=== PATIENT | female | born 1995 | race Caucasian/White ===

== ENCOUNTER 2017-12-17 19:17 | Inpatient (IN) | payer BC, OTHER ==
[~2017-12-17] VITALS: Ht 160 cm; Wt 70.3 kg
[2017-12-17] MEDS ORDERED: MECLIZINE HCL 12.5 MG TABLET. PO ONE (20:00)
--- NOTE | 2017-12-17 20:00 | PHYS DOC ---
Past Medical History Past Medical History: Anxiety, Sinusitis, Other Additional Past Medical Histor: PANIC ATTACKS,HOSHIMOTTO'S Past Surgical History: No Surgical History Additional Information: VAPES Alcohol Use: None Drug Use: None Adult General Chief Complaint Chief Complaint: BLURRED/DOUBLE VISION HPI HPI Patient is a 22 year old female who presents with double vision Patient has had sinus drainage and congestion for the past 5 days, getting worse. She was diagnosed with sinusitis yesterday and placed on Amoxicillin and prednisone. Today at noon, she noted onset of diplopia which has been progressive and worse tonight. She wears contact lenses and noted no decreased visual acuity or photophobia. She also complains of mild vertigo. She has no pain on ocular movements. No fevers. Review of Systems Review of Systems Constitutional: Denies fever or chills Eyes: Denies change in visual acuity, redness, or eye pain HENT: With nasal congestion and right sided neck stiffness Respiratory: Denies cough or shortness of breath Cardiovascular: no chest pain or palpitations GI: Denies abdominal pain, nausea, vomiting, bloody stools or diarrhea : Denies dysuria or hematuria Musculoskeletal: Denies back pain or joint pain Integument: Denies rash or skin lesions Neurologic: Denies headache, with diplopia and neck muscle weakness or sensory changes Endocrine: Denies polyuria or polydipsia All other systems were reviewed and found to be within normal limits, except as documented in this note. Current Medications Current Medications Current Medications Medications (Trade) Dose Ordered Sig/Guido Start Time Stop Time Status Last Admin Dose Admin Ketorolac Tromethamine (Toradol 15mg Vial) 15 mg 1X ONCE 12/17/17 20:15 12/17/17 20:16 DC 12/17/17 20:36 15 MG Meclizine HCl (Antivert) 25 mg 1X ONCE 12/17/17 20:00 12/17/17 20:01 DC 12/17/17 20:00 25 MG Sodium Chloride 1,000 ml @ 1,000 mls/hr 1X ONCE 12/17/17 20:15 12/17/17 21:14 DC 12/17/17 20:35 1,000 MLS/HR Allergies Allergies Allergies Coded Allergies Type Severity Reaction Last Updated Verified No Known Drug Allergies 12/17/17 No Physical Exam Physical Exam Constitutional: Well developed, well nourished, no acute distress, non-toxic appearance. HENT: Normocephalic, atraumatic, bilateral external ears normal, oropharynx moist, no oral exudates, nose normal. with bilateral congestion, no facial or sinus tenderness to palpation. Eyes: PERRLA, EOMI, conjunctiva normal, no discharge. Neck: Normal range of motion, no tenderness, supple, no stridor. Cardiovascular:Fast rate and rhythm, no murmur Lungs & Thorax: Bilateral breath sounds clear to auscultation Abdomen: Bowel sounds normal, soft, no tenderness, no masses, no pulsatile masses. Skin: Warm, dry, no erythema, no rash. Back: No tenderness, no CVA tenderness. Extremities: No tenderness, no cyanosis, no clubbing, ROM intact, no edema. Neurologic: Alert and oriented X 3, normal motor function, normal sensory function, no focal deficits noted. Cranial nerves II-XII intact, no pronator drift bilaterally, fnmyuh-[id number]-[id number] intact bilaterally, strength 5/5 upper extremity the extremity symmetric bilaterally, sensation intact to light touch and position sense upper extremity production was symmetric bilaterally, gait normal. With diplopia after 2 feet distance. Psychologic: Affect normal, judgement normal, mood normal. Current Patient Data Vital Signs Vital Signs Date Time Temp Pulse Resp B/P (MAP) Pulse Ox O2 Delivery O2 Flow Rate FiO2 12/17/17 19:35 98.2 126 20 151/98 (115) 98 Room Air 98.2 Lab Values Laboratory Tests Test 12/17/17 20:20 12/17/17 20:22 12/17/17 20:28 Urine Opiates Screen Neg (NEG) Urine Methadone Screen Neg (NEG) Urine Barbiturates Neg (NEG) Urine Phencyclidine Screen Neg (NEG) Urine Amphetamine/Methamphetamine Neg (NEG) Urine Benzodiazepines Screen Neg (NEG) Urine Cocaine Screen Neg (NEG) Urine Cannabinoids Screen Pos (NEG) Urine Ethyl Alcohol Neg (NEG) POC Urine HCG, Qualitative Hcg negative (Negative) White Blood Count 10.5 x10^3/uL (4.0-11.0) Red Blood Count 5.39 x10^6/uL (3.50-5.40) Hemoglobin 16.0 g/dL (12.0-15.5) H Hematocrit 45.3 % (36.0-47.0) Mean Corpuscular Volume 84 fL (79-100) Mean Corpuscular Hemoglobin 30 pg (25-35) Mean Corpuscular Hemoglobin Concent 35 g/dL (31-37) Red Cell Distribution Width 12.4 % (11.5-14.5) Platelet Count 342 x10^3/uL (140-400) Neutrophils (%) (Auto) 86 % (31-73) H Lymphocytes (%) (Auto) 11 % (24-48) L Monocytes (%) (Auto) 3 % (0-9) Eosinophils (%) (Auto) 0 % (0-3) Basophils (%) (Auto) 0 % (0-3) Neutrophils # (Auto) 9.0 x10^3uL (1.8-7.7) H Lymphocytes # (Auto) 1.1 x10^3/uL (1.0-4.8) Monocytes # (Auto) 0.3 x10^3/uL (0.0-1.1) Eosinophils # (Auto) 0.0 x10^3/uL (0.0-0.7) Basophils # (Auto) 0.0 x10^3/uL (0.0-0.2) Segmented Neutrophils % 88 % (35-66) H Lymphocytes % 8 % (24-48) L Monocytes % 4 % (0-10) Platelet Estimate Adequate (ADEQUATE) Sodium Level 130 mmol/L (136-145) L Potassium Level 4.0 mmol/L (3.5-5.1) Chloride Level 97 mmol/L (98-107) L Carbon Dioxide Level 27 mmol/L (21-32) Anion Gap 6 (6-14) Blood Urea Nitrogen 17 mg/dL (7-20) Creatinine 0.8 mg/dL (0.6-1.0) Estimated GFR (Cockcroft-Gault) 88.9 BUN/Creatinine Ratio 21 (6-20) H Glucose Level 119 mg/dL (70-99) H Calcium Level 9.6 mg/dL (8.5-10.1) Total Bilirubin 0.5 mg/dL (0.2-1.0) Aspartate Amino Transferase (AST) 37 U/L (15-37) Alanine Aminotransferase (ALT) 81 U/L (14-59) H Alkaline Phosphatase 60 U/L (46-116) Total Protein 8.8 g/dL (6.4-8.2) H Albumin 3.9 g/dL (3.4-5.0) Albumin/Globulin Ratio 0.8 (1.0-1.7) L Thyroid Stimulating Hormone (TSH) 2.170 uIU/mL (0.358-3.74) Ethyl Alcohol Level < 10 mg/dL (0-10) Laboratory Tests 12/17/17 20:28 Laboratory Tests 12/17/17 20:28 EKG EKG ECG 20:05 ST @ [address]-T wave changes Radiology/Procedures Radiology/Procedures [facility] [address] [place] [address] IMAGING REPORT Signed PATIENT: ROSALINA DIAZ ACCOUNT: [id number] : 1995 LOCATION: ER AGE: 22 SEX: F EXAM STATUS: REG ER ORD. PHYSICIAN: HERIBERTO BENAVIDES MD REASON: diplopia PROCEDURE: CT HEAD WO CONTRAST Exam performed: CT scan of the head without contrast. Date of Service: 12/13/2017. Comparison: None available. Clinical History: Diplopia. Technique: Helical acquisitions are obtained from the foramen magnum to the vertex without intravenous administration of contrast. Findings: The ventricles are midline without evidence of dilatation. Normal camargo-white differentiation is maintained. There is no extra axial fluid collection, intraparenchymal hemorrhage or mass lesion. The visualized portions of the orbits, paranasal sinuses and the mastoid air cells appear clear. The calvarium is intact. Impression: 1. No acute intracranial process detected. PQRS Compliance Statement: One or more of the following individualized dose reduction techniques were utilized for this examination: 1. Automated exposure control 2. Adjustment of the mA and/or kV according to patient size 3. Use of iterative reconstruction technique Electronically signed by: Ana Luisa Castelan MD (12/17/2017 9:06 PM) [facility] DICTATED and SIGNED BY: ANA LUISA CASTELAN MD DATE: 12/17/172105 Course & Med Decision Making Course & Med Decision Making Pertinent Labs and Imaging studies reviewed. (See chart for details) Patient presents with diplopia and nasal congestion DDx-CVA, TIA, MS, Cavernous sinus thrombosis Patient was tachycardic with persistent diplopia and noted neck muscle weakness and RUE weakness on secondary exam. Labs remarkable for hyponatremia. Head CT scan unremarkable. ECG showed no evidence of acute injury pattern. UDS positive for cannabis. 20:[address] Urban who recommends Head CT scan, lab evaluation and if negative, outpatient MRI with ophthalmology evaluation. 23:30 Patient complains of neck swelling, right sided neck stiffness 00:21 Patient's medical record was reviewed and CT soft tissue neck from [facility] done on 12/14/2017 showed acute bilateral maxillary sinusitis otherwise negative. She had no swelling of her thyroid or airway. Epiglottis and aryepiglottic folds were unremarkable, vocal cords were normal. She was reassessed and now has complaints of neck weakness and right arm weakness. There is progression of her disease at this point. I have concerns for multiple sclerosis. Noting that she has persistent diplopia. Call Dr. Brown for further evaluation. 00:30 Patient request admission to [facility] 00:35 [facility] called and they have no bed availability 00:40 I spoke with the patient and she agreed to be admitted to [facility] 00:[address] Henderson who agreed with admission. Dragon Disclaimer Dragon Disclaimer This electronic medical record was generated, in whole or in part, using a voice recognition dictation system. Departure Departure Impression: Primary Impression: Diplopia Additional Impressions: RUE weakness Neck muscle weakness Sinusitis Marijuana abuse Disposition: ADMITTED INPATIENT Admitting Physician: Other (Dr. Corrie Henderson) Condition: STABLE Referrals: NO PCP (PCP) Problem Qualifiers Additional Impressions: Sinusitis Sinusitis location: maxillary Chronicity: subacute Qualified Codes: J01.00 - Acute maxillary sinusitis, unspecified HERIBERTO BENAVIDES MD Dec 17, 2017 20:00
--- NOTE | 2017-12-17 20:10 | EKG ---
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 RI6.01 No previous ECG available for comparison Electronically Signed On 12-18-2017 15:26:58 CDT by Steven Kellogg
[2017-12-17] MEDS ORDERED: IV NORMAL SALINE 1000ML BAG 1,000 ML IV ONE (20:15)
[2017-12-17] MEDS ORDERED: KETOROLAC 15 MG/ML VIAL. IV ONE (20:15)
[2017-12-17 20:39] LABS: BASO % 0 % (0-3); EOS % 0 % (0-3); HEMATOCRIT 45.3 % (36.0-47.0); LYMPH # 1.1 x10^3/uL (1.0-4.8); LYMPH % 11 % (24-48); MEAN CORPUSCULAR HEMOGLOBIN 30 pg (25-35); MEAN CORPUSCULAR HGB CONC 35 g/dL (31-37); MEAN CORPUSCULAR VOLUME 84 fL (79-100); MONO # 0.3 x10^3/uL (0.0-1.1); MONO % 3 % (0-9); NEUT % 86 % (31-73); PLATELET COUNT 342 x10^3/uL (140-400); RED BLOOD COUNT 5.39 x10^6/uL (3.50-5.40); RED CELL DISTRIBUTION WIDTH 12.4 % (11.5-14.5); WHITE BLOOD COUNT 10.5 x10^3/uL (4.0-11.0)
[2017-12-17 20:39] LABS: AMPHETAMINE/METHAMPHETAMINE NEG (NEG); BARBITURATES NEG (NEG); BENZODIAZEPINES NEG (NEG); CANNABINOIDS POS (NEG); COCAINE NEG (NEG); METHADONE NEG (NEG); OPIATES NEG (NEG); PHENCYCLIDINE NEG (NEG)
[2017-12-17 20:51] LABS: CALCIUM 9.6 mg/dL (8.5-10.1); CREATININE 0.8 mg/dL (0.6-1.0); GFR 88.9
[2017-12-17 20:56] LABS: ALBUMIN 3.9 g/dL (3.4-5.0); ALBUMIN/GLOBULIN RATIO 0.8 (1.0-1.7); TOTAL BILIRUBIN 0.5 mg/dL (0.2-1.0); TOTAL PROTEIN 8.8 g/dL (6.4-8.2)
[2017-12-17 21:09] LABS: % LYMPHS 8 % (24-48); % MONOS 4 % (0-10); % SEGS 88 % (35-66); PLT ESTIMATE ADEQUATE (ADEQUATE)
--- NOTE | 2017-12-17 21:10 | RAD ---
Exam performed: CT scan of the head without contrast. Date of Service: 12/13/2017. Comparison: None available. Clinical History: Diplopia. Technique: Helical acquisitions are obtained from the foramen magnum to the vertex without intravenous administration of contrast. Findings: The ventricles are midline without evidence of dilatation. Normal camargo-white differentiation is maintained. There is no extra axial fluid collection, intraparenchymal hemorrhage or mass lesion. The visualized portions of the orbits, paranasal sinuses and the mastoid air cells appear clear. The calvarium is intact. Impression: 1. No acute intracranial process detected. PQRS Compliance Statement: One or more of the following individualized dose reduction techniques were utilized for this examination: 1. Automated exposure control 2. Adjustment of the mA and/or kV according to patient size 3. Use of iterative reconstruction technique Electronically signed by: Ana Luisa Castelan MD (12/17/2017 9:06 PM) [facility]
[2017-12-18] MEDS ORDERED: diphenhydrAMINE HCL 25 MG CAPSULE PO ONE (02:15)
[2017-12-18 03:15] VITALS: BP 123/87
[2017-12-18] MEDS ORDERED: HYDR15SO4 PO (03:41)
[2017-12-18] MEDS ORDERED: AMOX875T PO (03:41)
[2017-12-18] MEDS ORDERED: zoloft (03:41)
[2017-12-18] MEDS ORDERED: PRED50TA PO (03:41)
[2017-12-18] MEDS ORDERED: ativan (03:41)
[2017-12-18] MEDS ORDERED: FLUT16SP NS (03:41)
[2017-12-18] MEDS ORDERED: [UNRECOGNIZED DRUG - OTHER] (03:41)
[2017-12-18] MEDS ORDERED: PROAIR HFA8.5 GM INH (03:41)
[2017-12-18] MEDS ORDERED: LEVO25TA4 PO (03:41)
[2017-12-18 07:00] VITALS: BP 129/86
[2017-12-18] MEDS ORDERED: ALPRAZolam 0.25 MG TABLET PO PRN (09:00)
[2017-12-18] MEDS ORDERED: NON FORMULARY ITEM (Albuterol Sulfate (Proair Hfa Inhaler) 1 PUFF) INH PRN (09:00)
[2017-12-18] MEDS ORDERED: NON FORMULARY ITEM IV ONE (09:00)
[2017-12-18] MEDS ORDERED: ZOLPIDEM 5 MG TABLET. PO PRN (09:00)
[2017-12-18] MEDS ORDERED: ONDANSETRON ODT 4 MG TAB.RAPDIS. PO PRN (09:00)
[2017-12-18] MEDS ORDERED: HYDROcodon/APAP 7.5/325MG ORAL 15 ML SOLUTION PO PRN (09:00)
[2017-12-18] MEDS ORDERED: ACETAMINOPHEN 500 MG TABLET PO PRN (09:00)
[2017-12-18] MEDS: FLUTICASONE 50MCG/NASAL SPRAY 16GM BOTTLE. NS SCH (09:00)
[2017-12-18] MEDS ORDERED: IBUPROFEN 200 MG TABLET. PO PRN (09:00)
[2017-12-18] MEDS ORDERED: ACETAMINOPHEN/CODEINE 300/30MG TABLET. PO PRN (09:00)
[2017-12-18] MEDS: AMOXICILLIN 250 MG CAPSULE. PO SCH ×2 (09:32→21:02)
[2017-12-18] MEDS: POTASSIUM CL 20MEQ D5-0.45NACL 1,000 ML IV SCH (09:45)
[2017-12-18] MEDS ORDERED: CETIRIZINE HCL 10 MG TABLET. PO SCH (10:00)
[2017-12-18] MEDS ORDERED: predniSONE 10 MG TABLET PO SCH (10:00)
[2017-12-18] MEDS ORDERED: IOHEXOL 300 MG/ML 100ML VIAL. IV ONE (10:15)
[2017-12-18] MEDS ORDERED: CONTRAST GIVEN. MC PRN (10:15)
[2017-12-18] MEDS ORDERED: LEVOTHYROXINE 25 MCG TABLET. PO SCH (10:30)
[2017-12-18 11:00] VITALS: BP 137/86
--- NOTE | 2017-12-18 11:48 | PDOC2 ---
NEUROLOGY CONSULT Date of Admission Date of Admission DATE: 12/18/17 TIME: 11:37 Reason for Consult Reason for Consult: Diplopia, weakness Referring Physician Referring Physician: Dr. Henderson Source Source: Caregiver (Mother), Chart review, Patient History of Present Illness History of Present Illness The patient is a 22-year-old right-handed female who has been feeling poorly for the past week. She notices weakness of her neck muscles in her head drops. She has had some right arm weakness. She is had some sinusitis, congestion, secretions, and her voice has changed. She went to the [facility] emergency department 3 days ago and had a negative CT of the neck. She has been on antibiotics for sinusitis. When I discussed the case with Dr. Ortega last night he described the donato yet at a distance and a negative exam, but later the patient brought up complaints of the neck weakness and right arm weakness and was admitted. There is no history of neuromuscular disease in the family. 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 She denies any numbness, cognitive change, exposure to hazardous chemicals. Past Medical History Endocrine: Hypothyroidism (Eze's) Past Surgical History Past Surgical History: No pertinent history Family History Family History: No pertinent hx ( negative for neuromuscular disease, parents are in good health) Social History Social History No alcohol, tobacco, drugs, Single Current Medications Current Medications Current Medications Meclizine HCl (Antivert) 25 mg 1X ONCE PO Last administered on 12/17/17at 20:00 ; Start 12/17/17 at 20:00; Stop 12/17/17 at 20:01; Status DC Sodium Chloride 1,000 ml @ 1,000 mls/hr 1X ONCE IV Last administered on at 20:35; Start 12/17/17 at 20:15; Stop 12/17/17 at 21:14; Status DC Ketorolac Tromethamine (Toradol 15mg Vial) 15 mg 1X ONCE IV Last administered on 12/17/17at 20:36; Start 12/17/17 at 20:15; Stop 12/17/17 at 20:16; Status DC Diphenhydramine HCl (Benadryl) 25 mg 1X ONCE PO Last administered on at 02:16; Start 12/18/17 at 02:15; Stop 12/18/17 at 02:18; Status DC Acetaminophen (Tylenol) 500 mg PRN Q6HRS PRN PO MILD PAIN / TEMP; Start at 09:00 Acetaminophen/ Codeine Phosphate (Tylenol #3) 1 tab PRN Q6HRS PRN PO PAIN; Start 12/18/17 at 09:00 Ibuprofen (Motrin) 600 mg PRN Q6HRS PRN PO INFLAMMATION; Start 12/18/17 at 09: 00 Ondansetron HCl (Zofran) 4 mg PRN Q6HRS PRN IV NAUSEA/VOMITING; Start 12/18/17 at 09:00 Ondansetron HCl (Zofran Odt) 4 mg PRN Q6HRS PRN PO NAUSEA/VOMITING; Start 12/18 at 09:00 Fluticasone Propionate (Flonase) 1 spray DAILY NS ; Start 12/18/17 at 09:00 Acetaminophen/ Hydrocodone Bitart (Lortab 7.5-325/ 15ml Oral Solution) 15 ml PRN Q4HRS PRN PO MODERATE PAIN; Start 12/18/17 at 09:00 Non-Formulary Medication (Albuterol Sulfate (Proair Hfa Inhaler)) 1 puff PRN Q6HRS PRN INH SHORTNESS OF BREATH; Start 12/18/17 at 09:00; Status UNV Amoxicillin (Amoxil) 750 mg BID PO ; Start 12/18/17 at 10:00 Levothyroxine Sodium (Synthroid) 25 mcg DAILY07 PO ; Start 12/18/17 at 10:30 Prednisone (Prednisone) 50 mg DAILY PO ; Start 12/18/17 at 10:00 Alprazolam (Xanax) 0.25 mg PRN Q8HRS PRN PO ANXIETY / AGITATION; Start at 09:00 Zolpidem Tartrate (Ambien) 5 mg PRN QHS PRN PO INSOMNIA; Start 12/18/17 at 09: 00 Cetirizine HCl (ZyrTEC) 10 mg DAILY PO ; Start 12/18/17 at 10:00 Non-Formulary Medication 1 ea 1X ONCE IV ; Start 12/18/17 at 09:00; Stop at 09:01; Status UNV Potassium Chloride/Dextrose/ Sod Cl 1,000 ml @ 80 mls/hr [id number] IV Last administered on 12/18/17at 09:45; Start 12/18/17 at 09:00 Albuterol Sulfate (Ventolin Neb Soln) 2.5 mg PRN Q6HRS PRN NEB SHORTNESS OF BREATH; Start 12/18/17 at 09:30 Iohexol (Omnipaque 300 Mg/ml) 75 ml 1X ONCE IV Last administered on 12/18/17at 10:31; Start 12/18/17 at 10:15; Stop 12/18/17 at 10:16; Status DC Info (CONTRAST GIVEN -- Rx MONITORING) 1 each PRN DAILY PRN MC SEE COMMENTS; Start 12/18/17 at 10:15; Stop 12/20/17 at 10:14 Active Scripts Active Reported Amoxicillin 875 Mg Tablet 1 Tab PO BID Levothyroxine Sodium 25 Mcg Tablet 1 Tab PO DAILY Proair Hfa Inhaler (Albuterol Sulfate) 8.5 Gm Hfa.aer.ad 1 Puff INH PRN Q6HRS PRN [kaitlib fe] Hydrocodone-Apap 7.5-325/15 Soln (Hydrocodone Bit/Acetaminophen) 15 Ml Solution 15 Ml PO PRN Q4HRS PRN Prednisone 50 Mg Tablet 1 Tab PO DAILY Fluticasone Propionate Nasal Hulen (Fluticasone Propionate) 16 Gm Hulen.susp 1 Hulen NS DAILY [zoloft] [ativan] Allergies Allergies: Coded Allergies: No Known Drug Allergies (Unverified , 12/17/17) ROS Review of System Negative for fevers, chills, weight loss, shortness of breath, chest pain, indigestion, hematochezia, melena, dysuria. Full 14-point review systems is negative. Physical Exam Physical Examination General: Well-developed, well-nourished, white female, in no acute distress HEENT: Normocephalic andatraumatic. Tympanic membranes clear.Temporal arteries pulsatile and nontender.Fundoscopic exam unremarkable Neck: Supple without bruit, no meningismus Musculoskeletal: Stability:see neurologic. Gait exam:see neurologic. Tone:see neurologic. Strength:see neurologic. Neurological: Mental Status:intact, orientation, memory, attention span/concentration, language, fund of knowledge normal. Cranial Nerves:Pupils equal and reactive to light, extraocular movements areintact, visual figueroa are full to confrontation. Although she complains of diplopia at a distance, horizontal, I cannot discern a cranial neuropathy on cover-uncover testing. Facial sensation is normal. There is no facial asymmetry. Vestibulo-ocular reflex is intact. Palate elvates and tongue protrudes in midline. Voice is hyper nasal. There is weakness of neck extension. All other cranial related problems are negative except as mentioned before.Reflexes:2+ and symmetric with flexor plantar responses. Motor:3/5 strength in right arm, otherwise 5/5, with normal tone and bulk. Coordination:Finger-nose finger and mxon-lw-tenj testing are normal. Rapid alternating movements and fine finger movements are intact. Gait:Normal, including tandem. Sensory:Normal pinprick, vibration, light touch, proprioception. Vitals VITALS Vital Signs Date Time Temp Pulse Resp B/P (MAP) Pulse Ox O2 Delivery O2 Flow Rate FiO2 12/18/17 07:41 Room Air 12/18/17 07:00 97.9 100 16 129/86 (100) 95 97.9 Labs Labs Laboratory Tests Test 12/17/17 20:20 12/17/17 20:22 12/17/17 20:28 12/18/17 10:15 Urine Opiates Screen Neg (NEG) Urine Methadone Screen Neg (NEG) Urine Barbiturates Neg (NEG) Urine Phencyclidine Screen Neg (NEG) Urine Amphetamine/Methamphetamine Neg (NEG) Urine Benzodiazepines Screen Neg (NEG) Urine Cocaine Screen Neg (NEG) Urine Cannabinoids Screen Pos (NEG) Urine Ethyl Alcohol Neg (NEG) Bedside Urine HCG, Qualitative Hcg negative (Negative) White Blood Count 10.5 x10^3/uL (4.0-11.0) Red Blood Count 5.39 x10^6/uL (3.50-5.40) Hemoglobin 16.0 g/dL (12.0-15.5) Hematocrit 45.3 % (36.0-47.0) Mean Corpuscular Volume 84 fL (79-100) Mean Corpuscular Hemoglobin 30 pg (25-35) Mean Corpuscular Hemoglobin Concent 35 g/dL (31-37) Red Cell Distribution Width 12.4 % (11.5-14.5) Platelet Count 342 x10^3/uL (140-400) Neutrophils (%) (Auto) 86 % (31-73) Lymphocytes (%) (Auto) 11 % (24-48) Monocytes (%) (Auto) 3 % (0-9) Eosinophils (%) (Auto) 0 % (0-3) Basophils (%) (Auto) 0 % (0-3) Neutrophils # (Auto) 9.0 x10^3uL (1.8-7.7) Lymphocytes # (Auto) 1.1 x10^3/uL (1.0-4.8) Monocytes # (Auto) 0.3 x10^3/uL (0.0-1.1) Eosinophils # (Auto) 0.0 x10^3/uL (0.0-0.7) Basophils # (Auto) 0.0 x10^3/uL (0.0-0.2) Segmented Neutrophils % 88 % (35-66) Lymphocytes % 8 % (24-48) Monocytes % 4 % (0-10) Platelet Estimate Adequate (ADEQUATE) Sodium Level 130 mmol/L (136-145) Potassium Level 4.0 mmol/L (3.5-5.1) Chloride Level 97 mmol/L (98-107) Carbon Dioxide Level 27 mmol/L (21-32) Anion Gap 6 (6-14) Blood Urea Nitrogen 17 mg/dL (7-20) Creatinine 0.8 mg/dL (0.6-1.0) Estimated GFR (Cockcroft-Gault) 88.9 BUN/Creatinine Ratio 21 (6-20) Glucose Level 119 mg/dL (70-99) Calcium Level 9.6 mg/dL (8.5-10.1) Total Bilirubin 0.5 mg/dL (0.2-1.0) Aspartate Amino Transf (AST/SGOT) 37 U/L (15-37) Alanine Aminotransferase (ALT/SGPT) 81 U/L (14-59) Alkaline Phosphatase 60 U/L (46-116) Total Protein 8.8 g/dL (6.4-8.2) Albumin 3.9 g/dL (3.4-5.0) Albumin/Globulin Ratio 0.8 (1.0-1.7) Thyroid Stimulating Hormone (TSH) 2.170 uIU/mL (0.358-3.74) Ethyl Alcohol Level < 10 mg/dL (0-10) Magnesium Level 2.4 mg/dL (1.8-2.4) Laboratory Tests Test 12/17/17 20:20 12/17/17 20:22 12/17/17 20:28 12/18/17 10:15 Urine Opiates Screen Neg (NEG) Urine Methadone Screen Neg (NEG) Urine Barbiturates Neg (NEG) Urine Phencyclidine Screen Neg (NEG) Urine Amphetamine/Methamphetamine Neg (NEG) Urine Benzodiazepines Screen Neg (NEG) Urine Cocaine Screen Neg (NEG) Urine Cannabinoids Screen Pos (NEG) Urine Ethyl Alcohol Neg (NEG) Bedside Urine HCG, Qualitative Hcg negative (Negative) White Blood Count 10.5 x10^3/uL (4.0-11.0) Red Blood Count 5.39 x10^6/uL (3.50-5.40) Hemoglobin 16.0 g/dL (12.0-15.5) Hematocrit 45.3 % (36.0-47.0) Mean Corpuscular Volume 84 fL (79-100) Mean Corpuscular Hemoglobin 30 pg (25-35) Mean Corpuscular Hemoglobin Concent 35 g/dL (31-37) Red Cell Distribution Width 12.4 % (11.5-14.5) Platelet Count 342 x10^3/uL (140-400) Neutrophils (%) (Auto) 86 % (31-73) Lymphocytes (%) (Auto) 11 % (24-48) Monocytes (%) (Auto) 3 % (0-9) Eosinophils (%) (Auto) 0 % (0-3) Basophils (%) (Auto) 0 % (0-3) Neutrophils # (Auto) 9.0 x10^3uL (1.8-7.7) Lymphocytes # (Auto) 1.1 x10^3/uL (1.0-4.8) Monocytes # (Auto) 0.3 x10^3/uL (0.0-1.1) Eosinophils # (Auto) 0.0 x10^3/uL (0.0-0.7) Basophils # (Auto) 0.0 x10^3/uL (0.0-0.2) Segmented Neutrophils % 88 % (35-66) Lymphocytes % 8 % (24-48) Monocytes % 4 % (0-10) Platelet Estimate Adequate (ADEQUATE) Sodium Level 130 mmol/L (136-145) Potassium Level 4.0 mmol/L (3.5-5.1) Chloride Level 97 mmol/L (98-107) Carbon Dioxide Level 27 mmol/L (21-32) Anion Gap 6 (6-14) Blood Urea Nitrogen 17 mg/dL (7-20) Creatinine 0.8 mg/dL (0.6-1.0) Estimated GFR (Cockcroft-Gault) 88.9 BUN/Creatinine Ratio 21 (6-20) Glucose Level 119 mg/dL (70-99) Calcium Level 9.6 mg/dL (8.5-10.1) Total Bilirubin 0.5 mg/dL (0.2-1.0) Aspartate Amino Transf (AST/SGOT) 37 U/L (15-37) Alanine Aminotransferase (ALT/SGPT) 81 U/L (14-59) Alkaline Phosphatase 60 U/L (46-116) Total Protein 8.8 g/dL (6.4-8.2) Albumin 3.9 g/dL (3.4-5.0) Albumin/Globulin Ratio 0.8 (1.0-1.7) Thyroid Stimulating Hormone (TSH) 2.170 uIU/mL (0.358-3.74) Ethyl Alcohol Level < 10 mg/dL (0-10) Magnesium Level 2.4 mg/dL (1.8-2.4) Images Images CT head: The ventricles are midline without evidence of dilatation. Normal camargo-white differentiation is maintained. There is no extra axial fluid collection, intraparenchymal hemorrhage or mass lesion. The visualized portions of the orbits, paranasal sinuses and the mastoid air cells appear clear. The calvarium is intact. Impression: 1. No acute intracranial process detected. Assessment/Plan Assessment/Plan Impression: Onset of right upper extremity weakness, dysphagia, hyper nasal voice, and now some diplopia. There is no evidence of central nervous system disease. The normal deep tendon reflexes reflexes argue against acute neuropathy. The neck extension weakness is unlikely to be due to central or peripheral nervous disease. Thus, I'm most concerned about myasthenia gravis especially since we know she already has autoimmune problems with her thyroiditis. It would be unusual for Lambert Eaton syndrome to present in this age group there is no family history of neuromuscular disease. I doubt that she has botulism or other poisoning. Recommendations: I originally planned an edrophonium challenge test, but this medication is not available. With permission from chief executive officer, I am sending off myasthenia serology. CT of the chest to rule out thymoma Speech therapy to evaluate swallowing Respiratory therapy to monitor negative inspiratory force Pulmonary consultation, I discussed with Dr. Strickland Most likely I will be starting the patient on plasmapheresis within the next 24 hours I will also start steroids and pyridostigmine Transfer to ICU if status worsens. I fully discussed with the patient and her mother. Thank you for letting me help with the patient's care. GAURAV BARONE MD Dec 18, 2017 11:48
--- NOTE | 2017-12-18 12:06 | PDOC1 ---
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 Now she is complaining of right upper extremity weakness to me, no tingling numbness on feet or extremities. DTRs plus 2. She has been also having stiff neck for 2 weeks, actually saw [facility] ER, sent home, CAT scan was done there which sounds unremarkable. But she is still very stiff in her neck. Neurology has been consulted. Concerns about myasthenia gravis. Thoughts of edrophonium test. Plasmapheresis also contemplated. Patient has significant chunky sounding cough and unable to expectorate or at least she also has some difficulty swallowing.DW STRAW BALER, signifn swallow issues hence advice NPO<> Pulmonary consulted and I agree with this. We will get records from [facility] - had a chest and neck CT? Mother is concerned about secretions. We have to closely monitor respiratory status, agree with nothing by mouth and IV fluids for now. If status worsens worsens ,. I agree with transfer to ICU. Past Medical History Endocrine: Hypothyroidism (Eze's) Past Surgical History Past Surgical History: No pertinent history Family History Family History: Other (MS in the sister) Social History Smoke: No ALCOHOL: none Drugs: None Current Problem List Problem List Problems Medical Problems: (1) Diplopia Status: Acute (2) Neck muscle weakness Status: Acute (3) RUE weakness Status: Acute (4) Sinusitis Status: Acute Current Medications Current Medications Current Medications Meclizine HCl (Antivert) 25 mg 1X ONCE PO Last administered on 12/17/17at 20:00 ; Start 12/17/17 at 20:00; Stop 12/17/17 at 20:01; Status DC Sodium Chloride 1,000 ml @ 1,000 mls/hr 1X ONCE IV Last administered on at 20:35; Start 12/17/17 at 20:15; Stop 12/17/17 at 21:14; Status DC Ketorolac Tromethamine (Toradol 15mg Vial) 15 mg 1X ONCE IV Last administered on 12/17/17at 20:36; Start 12/17/17 at 20:15; Stop 12/17/17 at 20:16; Status DC Diphenhydramine HCl (Benadryl) 25 mg 1X ONCE PO Last administered on at 02:16; Start 12/18/17 at 02:15; Stop 12/18/17 at 02:18; Status DC Acetaminophen (Tylenol) 500 mg PRN Q6HRS PRN PO MILD PAIN / TEMP; Start at 09:00 Acetaminophen/ Codeine Phosphate (Tylenol #3) 1 tab PRN Q6HRS PRN PO PAIN; Start 12/18/17 at 09:00 Ibuprofen (Motrin) 600 mg PRN Q6HRS PRN PO INFLAMMATION; Start 12/18/17 at 09: 00 Ondansetron HCl (Zofran) 4 mg PRN Q6HRS PRN IV NAUSEA/VOMITING; Start 12/18/17 at 09:00 Ondansetron HCl (Zofran Odt) 4 mg PRN Q6HRS PRN PO NAUSEA/VOMITING; Start 12/18 at 09:00 Fluticasone Propionate (Flonase) 1 spray DAILY NS ; Start 12/18/17 at 09:00 Acetaminophen/ Hydrocodone Bitart (Lortab 7.5-325/ 15ml Oral Solution) 15 ml PRN Q4HRS PRN PO MODERATE PAIN; Start 12/18/17 at 09:00 Non-Formulary Medication (Albuterol Sulfate (Proair Hfa Inhaler)) 1 puff PRN Q6HRS PRN INH SHORTNESS OF BREATH; Start 12/18/17 at 09:00; Status UNV Amoxicillin (Amoxil) 750 mg BID PO ; Start 12/18/17 at 10:00 Levothyroxine Sodium (Synthroid) 25 mcg DAILY07 PO ; Start 12/18/17 at 10:30 Prednisone (Prednisone) 50 mg DAILY PO ; Start 12/18/17 at 10:00 Alprazolam (Xanax) 0.25 mg PRN Q8HRS PRN PO ANXIETY / AGITATION; Start at 09:00 Zolpidem Tartrate (Ambien) 5 mg PRN QHS PRN PO INSOMNIA; Start 12/18/17 at 09: 00 Cetirizine HCl (ZyrTEC) 10 mg DAILY PO ; Start 12/18/17 at 10:00 Non-Formulary Medication 1 ea 1X ONCE IV ; Start 12/18/17 at 09:00; Stop at 09:01; Status UNV Potassium Chloride/Dextrose/ Sod Cl 1,000 ml @ 80 mls/hr [id number] IV Last administered on 12/18/17at 09:45; Start 12/18/17 at 09:00 Albuterol Sulfate (Ventolin Neb Soln) 2.5 mg PRN Q6HRS PRN NEB SHORTNESS OF BREATH; Start 12/18/17 at 09:30 Iohexol (Omnipaque 300 Mg/ml) 75 ml 1X ONCE IV Last administered on 12/18/17at 10:31; Start 12/18/17 at 10:15; Stop 12/18/17 at 10:16; Status DC Info (CONTRAST GIVEN -- Rx MONITORING) 1 each PRN DAILY PRN MC SEE COMMENTS; Start 12/18/17 at 10:15; Stop 12/20/17 at 10:14 Active Scripts Active Reported Amoxicillin 875 Mg Tablet 1 Tab PO BID Levothyroxine Sodium 25 Mcg Tablet 1 Tab PO DAILY Proair Hfa Inhaler (Albuterol Sulfate) 8.5 Gm Hfa.aer.ad 1 Puff INH PRN Q6HRS PRN [kaitlib fe] Hydrocodone-Apap 7.5-325/15 Soln (Hydrocodone Bit/Acetaminophen) 15 Ml Solution 15 Ml PO PRN Q4HRS PRN Prednisone 50 Mg Tablet 1 Tab PO DAILY Fluticasone Propionate Nasal [place] (Fluticasone Propionate) 16 Gm [place].susp 1 [place] NS DAILY [zoloft] [ativan] Allergies Allergies: Coded Allergies: No Known Drug Allergies (Unverified , 12/17/17) ROS Review of System as per history of present illness, the rest of ROS 14 point negative Physical Exam General: Alert, Oriented X3, Cooperative, No acute distress HEENT: Atraumatic, PERRLA, EOMI, Mucous membr. moist/pink, Other (stiff neck, limited mobility-claims diplopia but diplopia resolves with either eye covered) Lungs: Clear to auscultation, Normal air movement Heart: S1S2, RRR, no thrills, no rubs, no gallops, no murmurs Cardiovascular: S1 Breasts: Normal, Rt breast nml w/o mass, Lt breast nml w/o mass, Nipples normal Abdomen: Normal bowel sounds, Soft, No tenderness, No hepatosplenomegaly, No masses Rectal Exam: not examined PELVIC: Nml ext genitalia Extremities: No clubbing, No cyanosis Skin: No rashes, No breakdown, No significant lesion, Other (lipoma at the nape ) Neuro: Normal gait, Normal speech, Normal tone, Sensation intact, Cranial nerves 3-12 NL, Reflexes 2+, Other (4 out of 5 muscle manual testing right upper extremity, the rest is 5 out of 5) Psych/Mental Status: Mental status NL, Mood NL Vitals Vitals Vital Signs Date Time Temp Pulse Resp B/P (MAP) Pulse Ox O2 Delivery O2 Flow Rate FiO2 12/18/17 07:41 Room Air 12/18/17 07:00 97.9 100 16 129/86 (100) 95 97.9 Labs Labs Laboratory Tests Test 12/17/17 20:20 12/17/17 20:22 12/17/17 20:28 12/18/17 10:15 Urine Opiates Screen Neg (NEG) Urine Methadone Screen Neg (NEG) Urine Barbiturates Neg (NEG) Urine Phencyclidine Screen Neg (NEG) Urine Amphetamine/Methamphetamine Neg (NEG) Urine Benzodiazepines Screen Neg (NEG) Urine Cocaine Screen Neg (NEG) Urine Cannabinoids Screen Pos (NEG) Urine Ethyl Alcohol Neg (NEG) Bedside Urine HCG, Qualitative Hcg negative (Negative) White Blood Count 10.5 x10^3/uL (4.0-11.0) Red Blood Count 5.39 x10^6/uL (3.50-5.40) Hemoglobin 16.0 g/dL (12.0-15.5) Hematocrit 45.3 % (36.0-47.0) Mean Corpuscular Volume 84 fL (79-100) Mean Corpuscular Hemoglobin 30 pg (25-35) Mean Corpuscular Hemoglobin Concent 35 g/dL (31-37) Red Cell Distribution Width 12.4 % (11.5-14.5) Platelet Count 342 x10^3/uL (140-400) Neutrophils (%) (Auto) 86 % (31-73) Lymphocytes (%) (Auto) 11 % (24-48) Monocytes (%) (Auto) 3 % (0-9) Eosinophils (%) (Auto) 0 % (0-3) Basophils (%) (Auto) 0 % (0-3) Neutrophils # (Auto) 9.0 x10^3uL (1.8-7.7) Lymphocytes # (Auto) 1.1 x10^3/uL (1.0-4.8) Monocytes # (Auto) 0.3 x10^3/uL (0.0-1.1) Eosinophils # (Auto) 0.0 x10^3/uL (0.0-0.7) Basophils # (Auto) 0.0 x10^3/uL (0.0-0.2) Segmented Neutrophils % 88 % (35-66) Lymphocytes % 8 % (24-48) Monocytes % 4 % (0-10) Platelet Estimate Adequate (ADEQUATE) Sodium Level 130 mmol/L (136-145) Potassium Level 4.0 mmol/L (3.5-5.1) Chloride Level 97 mmol/L (98-107) Carbon Dioxide Level 27 mmol/L (21-32) Anion Gap 6 (6-14) Blood Urea Nitrogen 17 mg/dL (7-20) Creatinine 0.8 mg/dL (0.6-1.0) Estimated GFR (Cockcroft-Gault) 88.9 BUN/Creatinine Ratio 21 (6-20) Glucose Level 119 mg/dL (70-99) Calcium Level 9.6 mg/dL (8.5-10.1) Total Bilirubin 0.5 mg/dL (0.2-1.0) Aspartate Amino Transf (AST/SGOT) 37 U/L (15-37) Alanine Aminotransferase (ALT/SGPT) 81 U/L (14-59) Alkaline Phosphatase 60 U/L (46-116) Total Protein 8.8 g/dL (6.4-8.2) Albumin 3.9 g/dL (3.4-5.0) Albumin/Globulin Ratio 0.8 (1.0-1.7) Thyroid Stimulating Hormone (TSH) 2.170 uIU/mL (0.358-3.74) Ethyl Alcohol Level < 10 mg/dL (0-10) Magnesium Level 2.4 mg/dL (1.8-2.4) Laboratory Tests Test 12/17/17 20:20 12/17/17 20:22 12/17/17 20:28 12/18/17 10:15 Urine Opiates Screen Neg (NEG) Urine Methadone Screen Neg (NEG) Urine Barbiturates Neg (NEG) Urine Phencyclidine Screen Neg (NEG) Urine Amphetamine/Methamphetamine Neg (NEG) Urine Benzodiazepines Screen Neg (NEG) Urine Cocaine Screen Neg (NEG) Urine Cannabinoids Screen Pos (NEG) Urine Ethyl Alcohol Neg (NEG) Bedside Urine HCG, Qualitative Hcg negative (Negative) White Blood Count 10.5 x10^3/uL (4.0-11.0) Red Blood Count 5.39 x10^6/uL (3.50-5.40) Hemoglobin 16.0 g/dL (12.0-15.5) Hematocrit 45.3 % (36.0-47.0) Mean Corpuscular Volume 84 fL (79-100) Mean Corpuscular Hemoglobin 30 pg (25-35) Mean Corpuscular Hemoglobin Concent 35 g/dL (31-37) Red Cell Distribution Width 12.4 % (11.5-14.5) Platelet Count 342 x10^3/uL (140-400) Neutrophils (%) (Auto) 86 % (31-73) Lymphocytes (%) (Auto) 11 % (24-48) Monocytes (%) (Auto) 3 % (0-9) Eosinophils (%) (Auto) 0 % (0-3) Basophils (%) (Auto) 0 % (0-3) Neutrophils # (Auto) 9.0 x10^3uL (1.8-7.7) Lymphocytes # (Auto) 1.1 x10^3/uL (1.0-4.8) Monocytes # (Auto) 0.3 x10^3/uL (0.0-1.1) Eosinophils # (Auto) 0.0 x10^3/uL (0.0-0.7) Basophils # (Auto) 0.0 x10^3/uL (0.0-0.2) Segmented Neutrophils % 88 % (35-66) Lymphocytes % 8 % (24-48) Monocytes % 4 % (0-10) Platelet Estimate Adequate (ADEQUATE) Sodium Level 130 mmol/L (136-145) Potassium Level 4.0 mmol/L (3.5-5.1) Chloride Level 97 mmol/L (98-107) Carbon Dioxide Level 27 mmol/L (21-32) Anion Gap 6 (6-14) Blood Urea Nitrogen 17 mg/dL (7-20) Creatinine 0.8 mg/dL (0.6-1.0) Estimated GFR (Cockcroft-Gault) 88.9 BUN/Creatinine Ratio 21 (6-20) Glucose Level 119 mg/dL (70-99) Calcium Level 9.6 mg/dL (8.5-10.1) Total Bilirubin 0.5 mg/dL (0.2-1.0) Aspartate Amino Transf (AST/SGOT) 37 U/L (15-37) Alanine Aminotransferase (ALT/SGPT) 81 U/L (14-59) Alkaline Phosphatase 60 U/L (46-116) Total Protein 8.8 g/dL (6.4-8.2) Albumin 3.9 g/dL (3.4-5.0) Albumin/Globulin Ratio 0.8 (1.0-1.7) Thyroid Stimulating Hormone (TSH) 2.170 uIU/mL (0.358-3.74) Ethyl Alcohol Level < 10 mg/dL (0-10) Magnesium Level 2.4 mg/dL (1.8-2.4) VTE Prophylaxis Ordered VTE Prophylaxis Devices: Yes VTE Pharmacological Prophylaxi: Yes Assessment/Plan Assessment/Plan Acute Diplopia, concerns about myasthenia gravis Right upper exT weakness Eze's -on Synthroid Dysphagia Cough - watch out for aspiration Stiff neck Lipoma marie Oropeza history and S Plan: Nothing by mouth, STRAW BALER eval, IV fluids while nothing by mouth PPI while nothing by mouth CT of the neck or chest being done Will get records from [place] as to what she had done there Agree with pulmonary consult Suction when necessary Ambulate ad deborah with fall prec Watch out for respiratory compromise if this worsens agree with plans of ICU transfer Further conditions pending above course M DM complex Appreciate neurology YVETTE CHAIREZ MD Dec 18, 2017 12:06
[2017-12-18 12:41] LABS: FREE T4 1.26 ng/dL (0.76-1.46)
[2017-12-18] MEDS: NORMAL SALINE IVP SCH (13:00)
[2017-12-18] MEDS: LEVOTHYROXINE SODIUM IVP SCH (13:00)
[2017-12-18] MEDS: ALBUTEROL SULFATE 2.5 MG/3 ML NEBU. NEB PRN (13:12)
--- NOTE | 2017-12-18 13:23 | RAD ---
CT Chest With Intravenous Contrast: History: Myasthenia gravis. Evaluate for thymoma. Comparison: None. Technique: Helical CT of the chest was performed after the administration of intravenous contrast, 75 mL Omnipaque-300. Exposure: One or more of the following individualized dose reduction techniques were utilized for this examination: 1. Automated exposure control 2. Adjustment of the mA and/or kV according to patient size 3. Use of iterative reconstruction technique Findings: Visualized thyroid is symmetric. Trachea and mainstem bronchi appear patent. No mediastinal lymphadenopathy is seen. No anterior mediastinal mass to suggest thymoma is appreciated. Heart and pericardium are unremarkable. No pneumothorax pleural effusion is seen. No acute airspace disease is identified. Thoracic aorta has appropriate appearance. Impression: Unremarkable CT of the chest. No evidence of thymoma. Electronically signed by: Eyal Flanagan MD (12/18/2017 1:19 PM) [place] [id number]
[2017-12-18 14:27] LABS: PROTHROMBIN TIME PATIENT 12.8 SEC (11.7-14.0)
[2017-12-18] MEDS ORDERED: HEPARIN for IV BOLUS 10,000 UNIT/10 ML VIAL. ONE (14:32)
[2017-12-18] MEDS ORDERED: LIDOCAINE WITH 8.4% SOD BICARB 3 ML DISP.SYRIN. ONE (14:32)
[2017-12-18] MEDS: CALCIUM CARBONATE 500 MG TABLET PO SCH (14:40)
--- NOTE | 2017-12-18 14:54 | RAD ---
Single view of the abdomen 12/18/2017 INDICATION: Weighted feeding tube placement Discussion: There is a weighted feeding tube projecting over the expected region of the stomach. No pneumoperitoneum is identified. The bowel gas pattern is nonobstructive. Contrast excretion noted in the kidneys. Lung bases are unremarkable. No acute osseous changes are seen. IMPRESSION: Weighted feeding tube with tip in the stomach. Electronically signed by: Ganesh Ferrara MD (12/18/2017 2:50 PM) [id number]
[2017-12-18 15:00] VITALS: BP 148/99
[2017-12-18] MEDS ORDERED: LIDOCAINE WITH 8.4% SOD BICARB 3 ML DISP.SYRIN. INJ ONE (15:15)
--- NOTE | 2017-12-18 15:55 | RAD ---
Procedure: Ultrasound-guided placement of right internal jugular temporary dialysis catheter 12/18/2017 3:50 PM Clinical Indication: plasmapheresis for myasthenia Discussion: The risks and benefits of the procedure were discussed the patient and/or their medical office representative. Informed consent was obtained. A timeout procedure was performed. All elements of maximal sterile barrier technique including the use of a cap, mask, sterile gown, sterile gloves, large sterile sheet, appropriate hand hygiene, and 2% chlorhexidine for cutaneous antisepsis (or acceptable alternative antiseptic per current guidelines) were followed for this procedure. The patient was prepped and draped in the usual sterile fashion. Ultrasound interrogation of the right neck revealed patency and compressibility of the right internal jugular vein. A 21-gauge micropuncture was then used to gain access to this vein under ultrasound guidance. A hard copy ultrasound image was recorded. A guidewire was advanced centrally. 5 [place] sheath was placed. Over a wire following dilatation, a temporary dialysis catheter was advanced centrally such that its tip was at the cavoatrial junction. Catheter was found to flush and aspirate normally. Catheter secured in place and a sterile dressing was applied. No immediate complications were identified. Fluoroscopy time: 0.6 seconds. Dose area product: 1 Gycm2 Impression: Successful ultrasound-guided placement of right internal jugular temporary dialysis catheter for plasmapheresis
[2017-12-18] MEDS: PYRIDOSTIGMINE BROMIDE 60 MG TABLET NG SCH ×2 (16:03→21:01)
[2017-12-18] MEDS: predniSONE 10 MG TABLET PO SCH (16:03)
[2017-12-18] MEDS: ALPRAZolam 0.25 MG TABLET NG PRN (16:03)
--- NOTE | 2017-12-18 17:30 | PDOC ---
PULMONARY PROGRESS NOTES Vitals Vital Signs Date Time Temp Pulse Resp B/P (MAP) Pulse Ox O2 Delivery O2 Flow Rate FiO2 12/18/17 15:00 97.9 108 20 148/99 (115) 97 Room Air 97.9 Cardiovascular: S1 Labs Laboratory Tests Test 12/17/17 20:20 12/17/17 20:22 12/17/17 20:28 12/18/17 10:15 Urine Opiates Screen Neg (NEG) Urine Methadone Screen Neg (NEG) Urine Barbiturates Neg (NEG) Urine Phencyclidine Screen Neg (NEG) Urine Amphetamine/Methamphetamine Neg (NEG) Urine Benzodiazepines Screen Neg (NEG) Urine Cocaine Screen Neg (NEG) Urine Cannabinoids Screen Pos (NEG) Urine Ethyl Alcohol Neg (NEG) Bedside Urine HCG, Qualitative Hcg negative (Negative) White Blood Count 10.5 x10^3/uL (4.0-11.0) Red Blood Count 5.39 x10^6/uL (3.50-5.40) Hemoglobin 16.0 g/dL (12.0-15.5) Hematocrit 45.3 % (36.0-47.0) Mean Corpuscular Volume 84 fL (79-100) Mean Corpuscular Hemoglobin 30 pg (25-35) Mean Corpuscular Hemoglobin Concent 35 g/dL (31-37) Red Cell Distribution Width 12.4 % (11.5-14.5) Platelet Count 342 x10^3/uL (140-400) Neutrophils (%) (Auto) 86 % (31-73) Lymphocytes (%) (Auto) 11 % (24-48) Monocytes (%) (Auto) 3 % (0-9) Eosinophils (%) (Auto) 0 % (0-3) Basophils (%) (Auto) 0 % (0-3) Neutrophils # (Auto) 9.0 x10^3uL (1.8-7.7) Lymphocytes # (Auto) 1.1 x10^3/uL (1.0-4.8) Monocytes # (Auto) 0.3 x10^3/uL (0.0-1.1) Eosinophils # (Auto) 0.0 x10^3/uL (0.0-0.7) Basophils # (Auto) 0.0 x10^3/uL (0.0-0.2) Segmented Neutrophils % 88 % (35-66) Lymphocytes % 8 % (24-48) Monocytes % 4 % (0-10) Platelet Estimate Adequate (ADEQUATE) Sodium Level 130 mmol/L (136-145) Potassium Level 4.0 mmol/L (3.5-5.1) Chloride Level 97 mmol/L (98-107) Carbon Dioxide Level 27 mmol/L (21-32) Anion Gap 6 (6-14) Blood Urea Nitrogen 17 mg/dL (7-20) Creatinine 0.8 mg/dL (0.6-1.0) Estimated GFR (Cockcroft-Gault) 88.9 BUN/Creatinine Ratio 21 (6-20) Glucose Level 119 mg/dL (70-99) Calcium Level 9.6 mg/dL (8.5-10.1) Total Bilirubin 0.5 mg/dL (0.2-1.0) Aspartate Amino Transf (AST/SGOT) 37 U/L (15-37) Alanine Aminotransferase (ALT/SGPT) 81 U/L (14-59) Alkaline Phosphatase 60 U/L (46-116) Total Protein 8.8 g/dL (6.4-8.2) Albumin 3.9 g/dL (3.4-5.0) Albumin/Globulin Ratio 0.8 (1.0-1.7) Thyroid Stimulating Hormone (TSH) 2.170 uIU/mL (0.358-3.74) Ethyl Alcohol Level < 10 mg/dL (0-10) Erythrocyte Sedimentation Rate 12 (0-25) Magnesium Level 2.4 mg/dL (1.8-2.4) Free Thyroxine 1.26 ng/dL (0.76-1.46) Free Triiodothyronine (T3) pg/mL 1.65 pg/mL (2.18-3.98) Test 12/18/17 13:55 Prothrombin Time 12.8 SEC (11.7-14.0) Prothromb Time International Ratio 1.0 (0.8-1.1) Laboratory Tests Test 12/17/17 20:20 12/17/17 20:22 12/17/17 20:28 12/18/17 10:15 Urine Opiates Screen Neg (NEG) Urine Methadone Screen Neg (NEG) Urine Barbiturates Neg (NEG) Urine Phencyclidine Screen Neg (NEG) Urine Amphetamine/Methamphetamine Neg (NEG) Urine Benzodiazepines Screen Neg (NEG) Urine Cocaine Screen Neg (NEG) Urine Cannabinoids Screen Pos (NEG) Urine Ethyl Alcohol Neg (NEG) Bedside Urine HCG, Qualitative Hcg negative (Negative) White Blood Count 10.5 x10^3/uL (4.0-11.0) Red Blood Count 5.39 x10^6/uL (3.50-5.40) Hemoglobin 16.0 g/dL (12.0-15.5) Hematocrit 45.3 % (36.0-47.0) Mean Corpuscular Volume 84 fL (79-100) Mean Corpuscular Hemoglobin 30 pg (25-35) Mean Corpuscular Hemoglobin Concent 35 g/dL (31-37) Red Cell Distribution Width 12.4 % (11.5-14.5) Platelet Count 342 x10^3/uL (140-400) Neutrophils (%) (Auto) 86 % (31-73) Lymphocytes (%) (Auto) 11 % (24-48) Monocytes (%) (Auto) 3 % (0-9) Eosinophils (%) (Auto) 0 % (0-3) Basophils (%) (Auto) 0 % (0-3) Neutrophils # (Auto) 9.0 x10^3uL (1.8-7.7) Lymphocytes # (Auto) 1.1 x10^3/uL (1.0-4.8) Monocytes # (Auto) 0.3 x10^3/uL (0.0-1.1) Eosinophils # (Auto) 0.0 x10^3/uL (0.0-0.7) Basophils # (Auto) 0.0 x10^3/uL (0.0-0.2) Segmented Neutrophils % 88 % (35-66) Lymphocytes % 8 % (24-48) Monocytes % 4 % (0-10) Platelet Estimate Adequate (ADEQUATE) Sodium Level 130 mmol/L (136-145) Potassium Level 4.0 mmol/L (3.5-5.1) Chloride Level 97 mmol/L (98-107) Carbon Dioxide Level 27 mmol/L (21-32) Anion Gap 6 (6-14) Blood Urea Nitrogen 17 mg/dL (7-20) Creatinine 0.8 mg/dL (0.6-1.0) Estimated GFR (Cockcroft-Gault) 88.9 BUN/Creatinine Ratio 21 (6-20) Glucose Level 119 mg/dL (70-99) Calcium Level 9.6 mg/dL (8.5-10.1) Total Bilirubin 0.5 mg/dL (0.2-1.0) Aspartate Amino Transf (AST/SGOT) 37 U/L (15-37) Alanine Aminotransferase (ALT/SGPT) 81 U/L (14-59) Alkaline Phosphatase 60 U/L (46-116) Total Protein 8.8 g/dL (6.4-8.2) Albumin 3.9 g/dL (3.4-5.0) Albumin/Globulin Ratio 0.8 (1.0-1.7) Thyroid Stimulating Hormone (TSH) 2.170 uIU/mL (0.358-3.74) Ethyl Alcohol Level < 10 mg/dL (0-10) Erythrocyte Sedimentation Rate 12 (0-25) Magnesium Level 2.4 mg/dL (1.8-2.4) Free Thyroxine 1.26 ng/dL (0.76-1.46) Free Triiodothyronine (T3) pg/mL 1.65 pg/mL (2.18-3.98) Test 12/18/17 13:55 Prothrombin Time 12.8 SEC (11.7-14.0) Prothromb Time International Ratio 1.0 (0.8-1.1) Medications Active Scripts Medications Dose Route/Sig Max Daily Dose Days Date Category Amoxicillin 875 Mg Tablet 1 Tab PO BID 12/18/17 Reported Levothyroxine Sodium 25 Mcg Tablet 1 Tab PO DAILY 12/18/17 Reported Proair Hfa Inhaler (Albuterol Sulfate) 8.5 Gm Hfa.aer.ad 1 Puff INH PRN Q6HRS PRN 12/18/17 Reported [kaitlib fe] 12/18/17 Reported Hydrocodone-Apap 7.5-325/15 Soln (Hydrocodone Bit/Acetaminophen) 15 Ml Solution 15 Ml PO PRN Q4HRS PRN 12/18/17 Reported Prednisone 50 Mg Tablet 1 Tab PO DAILY 12/18/17 Reported Fluticasone Propionate Nasal [place] (Fluticasone Propionate) 16 Gm [place].susp 1 [place] NS DAILY 12/18/17 Reported [zoloft] 12/18/17 Reported [ativan] 12/18/17 Reported Impression . FULL NOTE DICTATED SUSPECT MG AGREE WITH CURRENT RX MONITOR VITAL CAPACITY AROLDO NAZARIO MD Dec 18, 2017 17:30
[2017-12-18 20:03] VITALS: BP 139/90
[2017-12-18] MEDS ORDERED: FAMOTIDINE 20 MG TABLET. PO SCH (21:00)
[2017-12-18] MEDS ORDERED: SCOPOLAMINE 1.5MG PATCH. TD ONE (21:30)
--- NOTE | 2017-12-18 23:02 | CONS ---
DATE OF CONSULTATION: 12/18/2017 ATTENDING PHYSICIAN: Dr. Henderson REASON FOR CONSULTATION: The patient seen in pulmonary consultation at the request of Dr. Urban for possible myasthenia gravis respiratory distress. HISTORY OF PRESENT ILLNESS: The patient is a 22-year-old female that started to feel sick last week, was noticed some neck muscle weakness and head dropping. She also had some right arm weakness and was seen in the Emergency Room, treated for sinusitis and congestion. Eventually her voice changed. She was having some difficulty swallowing. She had a previous CT neck, which was negative. She was on antibiotics for sinusitis. The patient was complaining of diplopia, increased neck weakness and difficulty swallowing. She was admitted. She is currently being treated for possible myasthenia gravis. Workup is in process. There is no family history of neuromuscular disease. She does have a history of Eze's. Apparently family member with thyroid replacement. She denies any exposures to toxic fumes or dust. She has never really smoked. She currently denies any increasing shortness of breath. She has a Dobbhoff in place and is having some difficulty with dry heaves and cough. PAST MEDICAL HISTORY: Eze's thyroiditis. PAST SURGICAL HISTORY: None. FAMILY HISTORY: No family history of autoimmune diseases or neuromuscular disease. SOCIAL HISTORY: She denies tobacco or alcohol. REVIEW OF SYSTEMS: As indicated above, otherwise, a 10-point system was reviewed and negative. PHYSICAL EXAMINATION: GENERAL: Young individual in no respiratory distress and appeared to be her stated age. VITAL SIGNS: Stable. O2 saturation currently on room air is 95%. HEENT: Eyes, the sclerae were nonicteric. NECK: Jugular venous distention was not elevated. No lymphadenopathy. CHEST: Full expansion. LUNGS: Adequate air flow with no wheezes. CARDIOVASCULAR: Regular rate and rhythm with S1, S2, no S3. ABDOMEN: Soft, nontender and nondistended. EXTREMITIES: No clubbing, cyanosis or pitting edema. NEUROLOGIC: The patient was awake, alert and following commands. She had weakness of the neck muscles and having some difficulty swallowing. A detailed neuro exam was not performed. LABORATORY DATA: Labs were reviewed. White count was normal. Hemoglobin and hematocrit noted. Sed rate was low at 12. Electrolytes were noted. Sodium was low. BUN was normal. Creatinine was normal. Free T4 was low. INR was 1.0. Toxicology screen was negative. Beta hCG was negative. Chest x-ray reviewed. CT chest was reviewed, no acute infiltrates and no evidence of thymoma. IMPRESSION: 1. Suspect myasthenia gravis. 2. Dysphagia secondary to above, status post Dobbhoff tube placement. 3. Mild dyspnea secondary to above. 4. History of Eze's thyroiditis. PLAN: 1. I concur with current medical management. 2. The patient seen in consult by Nephrology for plasmapheresis. 3. We will follow clinical course. 4. Incentive spirometry. 5. Monitor negative inspiratory force. 6. Currently, the patient is doing well and no need transfer to the intensive care unit. I do appreciate the privilege in sharing in the patient's care. The above was discussed with the mother at the bedside. AROLDO NAZARIO MD DR: MIGUEL/edilson JOB#: [id number] / [id number]
[2017-12-18 23:10] VITALS: BP 137/91
[2017-12-19] MEDS: ALPRAZolam 0.25 MG TABLET NG PRN ×2 (01:13→15:03)
[2017-12-19] MEDS: POTASSIUM CL 20MEQ D5-0.45NACL 1,000 ML IV SCH ×3 (01:13→22:30)
[2017-12-19 03:09] VITALS: BP 139/104
[2017-12-19 05:28] LABS: HEMATOCRIT 44.9 % (36.0-47.0); HEMOGLOBIN 15.8 g/dL (12.0-15.5); RED BLOOD COUNT 5.38 x10^6/uL (3.50-5.40); RED CELL DISTRIBUTION WIDTH 12.4 % (11.5-14.5); WHITE BLOOD COUNT 10.1 x10^3/uL (4.0-11.0)
[2017-12-19 05:44] LABS: PROTHROMBIN TIME PATIENT 12.9 SEC (11.7-14.0)
[2017-12-19 06:02] LABS: ALBUMIN 3.8 g/dL (3.4-5.0); CALCIUM 9.1 mg/dL (8.5-10.1); CREATININE 0.7 mg/dL (0.6-1.0); GFR 103.7; POTASSIUM 4.1 mmol/L (3.5-5.1)
[2017-12-19 07:00] VITALS: BP 142/90
[2017-12-19] MEDS ORDERED: ALBUMIN HUMAN 5% 1,500 ML IV ONE (08:15)
--- NOTE | 2017-12-19 08:15 | RAD ---
History: Dobbhoff placement. Comparison: December 18, 2017. Findings: AP view of the abdomen performed upright. Pelvis is excluded from examination. No pneumoperitoneum is identified. Dobbhoff tube is present which appears looped in the body of stomach. Bowel gas pattern is nonspecific. Mild dextroconvex scoliosis of lower thoracic and upper lumbar spine is seen. There is also a central venous catheter with tip projecting at the right atrium Impression: Dobbhoff tube is looped in the body of the stomach. Electronically signed by: Eyal Flanagan MD (12/19/2017 8:12 AM) [place] [id number]
--- NOTE | 2017-12-19 08:56 | RAD ---
History: Dobbhoff tube placement. Comparison: Earlier December 19, 2017. Findings: AP upright abdomen radiograph. Dobbhoff tube is without appreciable change mildly looped in the body of the stomach. Impression: Dobbhoff tube tip projects at the body of the stomach. Electronically signed by: Eyal Flanagan MD (12/19/2017 8:52 AM) [id number]
[2017-12-19] MEDS: CALCIUM CARBONATE 500 MG TABLET PO SCH ×2 (09:00→15:04)
[2017-12-19] MEDS ORDERED: ERGOCALCIFEROL (VITAMIN D2) 50,000 UNIT CAPSULE. PO SCH (09:00)
[2017-12-19] MEDS: FLUTICASONE 50MCG/NASAL SPRAY 16GM BOTTLE. NS SCH (09:00)
--- NOTE | 2017-12-19 11:38 | PDOC ---
PROGRESS NOTES Chief Complaint Chief Complaint myasthenia gravis - new diagnosis Diplopia Dysphagia Stiff neck History of Present Illness History of Present Illness Seen In dialysis having first session of plasmapheresis Same, still diplopia, still secretions-I did start scopolamine patch Still stiff neck Rest of the labs and vital signs okay Sedimentation rate only 12 Plan: plasma exchange5 days Monitor for improvement I did consult nutrition for tube feeds via Dobbhoff today Continue K containing IVF for now Vitals Vitals Vital Signs Date Time Temp Pulse Resp B/P (MAP) Pulse Ox O2 Delivery O2 Flow Rate FiO2 12/19/17 08:10 97 Room Air 12/19/17 07:00 97.5 98 16 142/90 (107) 97.5 Physical Exam General: Alert, Oriented X3, Cooperative, No acute distress Heart: Regular rate, Normal S1, Normal S2 Lungs: Clear Abdomen: Normal bowel sounds, Soft, No tenderness, No hepatosplenomegaly, No masses Extremities: No clubbing, No cyanosis Skin: No rashes, No breakdown, No significant lesion, Other (lipoma at the nape ) Labs LABS Laboratory Tests Test 12/18/17 13:55 12/19/17 04:25 Prothrombin Time 12.8 SEC (11.7-14.0) 12.9 SEC (11.7-14.0) Prothromb Time International Ratio 1.0 (0.8-1.1) 1.0 (0.8-1.1) White Blood Count 10.1 x10^3/uL (4.0-11.0) Red Blood Count 5.38 x10^6/uL (3.50-5.40) Hemoglobin 15.8 g/dL (12.0-15.5) Hematocrit 44.9 % (36.0-47.0) Mean Corpuscular Volume 83 fL (79-100) Mean Corpuscular Hemoglobin 29 pg (25-35) Mean Corpuscular Hemoglobin Concent 35 g/dL (31-37) Red Cell Distribution Width 12.4 % (11.5-14.5) Platelet Count 307 x10^3/uL (140-400) Activated Partial Thromboplast Time 30 SEC (24-38) Fibrinogen 385 mg/dL (200-440) Sodium Level 138 mmol/L (136-145) Potassium Level 4.1 mmol/L (3.5-5.1) Chloride Level 100 mmol/L (98-107) Carbon Dioxide Level 30 mmol/L (21-32) Anion Gap 8 (6-14) Blood Urea Nitrogen 10 mg/dL (7-20) Creatinine 0.7 mg/dL (0.6-1.0) Estimated GFR (Cockcroft-Gault) 103.7 Glucose Level 128 mg/dL (70-99) Calcium Level 9.1 mg/dL (8.5-10.1) Albumin 3.8 g/dL (3.4-5.0) Hepatitis B Surface Antigen Nonreactive (Nonreactive) Hepatitis B Surface Antibody Reactive Review of Systems Review of Systems As per history of present illness, the rest of ROS 14 point negative Assessment and Plan Assessmemt and Plan Problems Medical Problems: (1) Diplopia Status: Acute (2) Neck muscle weakness Status: Acute (3) RUE weakness Status: Acute (4) Sinusitis Status: Acute Comment Review of Relevant I have reviewed the following items maliha (where applicable) has been applied. Labs Laboratory Tests Test 12/17/17 20:20 12/17/17 20:22 12/17/17 20:28 12/18/17 10:15 Urine Opiates Screen Neg (NEG) Urine Methadone Screen Neg (NEG) Urine Barbiturates Neg (NEG) Urine Phencyclidine Screen Neg (NEG) Urine Amphetamine/Methamphetamine Neg (NEG) Urine Benzodiazepines Screen Neg (NEG) Urine Cocaine Screen Neg (NEG) Urine Cannabinoids Screen Pos (NEG) Urine Ethyl Alcohol Neg (NEG) Bedside Urine HCG, Qualitative Hcg negative (Negative) White Blood Count 10.5 x10^3/uL (4.0-11.0) Red Blood Count 5.39 x10^6/uL (3.50-5.40) Hemoglobin 16.0 g/dL (12.0-15.5) Hematocrit 45.3 % (36.0-47.0) Mean Corpuscular Volume 84 fL (79-100) Mean Corpuscular Hemoglobin 30 pg (25-35) Mean Corpuscular Hemoglobin Concent 35 g/dL (31-37) Red Cell Distribution Width 12.4 % (11.5-14.5) Platelet Count 342 x10^3/uL (140-400) Neutrophils (%) (Auto) 86 % (31-73) Lymphocytes (%) (Auto) 11 % (24-48) Monocytes (%) (Auto) 3 % (0-9) Eosinophils (%) (Auto) 0 % (0-3) Basophils (%) (Auto) 0 % (0-3) Neutrophils # (Auto) 9.0 x10^3uL (1.8-7.7) Lymphocytes # (Auto) 1.1 x10^3/uL (1.0-4.8) Monocytes # (Auto) 0.3 x10^3/uL (0.0-1.1) Eosinophils # (Auto) 0.0 x10^3/uL (0.0-0.7) Basophils # (Auto) 0.0 x10^3/uL (0.0-0.2) Segmented Neutrophils % 88 % (35-66) Lymphocytes % 8 % (24-48) Monocytes % 4 % (0-10) Platelet Estimate Adequate (ADEQUATE) Sodium Level 130 mmol/L (136-145) Potassium Level 4.0 mmol/L (3.5-5.1) Chloride Level 97 mmol/L (98-107) Carbon Dioxide Level 27 mmol/L (21-32) Anion Gap 6 (6-14) Blood Urea Nitrogen 17 mg/dL (7-20) Creatinine 0.8 mg/dL (0.6-1.0) Estimated GFR (Cockcroft-Gault) 88.9 BUN/Creatinine Ratio 21 (6-20) Glucose Level 119 mg/dL (70-99) Calcium Level 9.6 mg/dL (8.5-10.1) Total Bilirubin 0.5 mg/dL (0.2-1.0) Aspartate Amino Transf (AST/SGOT) 37 U/L (15-37) Alanine Aminotransferase (ALT/SGPT) 81 U/L (14-59) Alkaline Phosphatase 60 U/L (46-116) Total Protein 8.8 g/dL (6.4-8.2) Albumin 3.9 g/dL (3.4-5.0) Albumin/Globulin Ratio 0.8 (1.0-1.7) Thyroid Stimulating Hormone (TSH) 2.170 uIU/mL (0.358-3.74) Ethyl Alcohol Level < 10 mg/dL (0-10) Erythrocyte Sedimentation Rate 12 (0-25) Magnesium Level 2.4 mg/dL (1.8-2.4) Free Thyroxine 1.26 ng/dL (0.76-1.46) Free Triiodothyronine (T3) pg/mL 1.65 pg/mL (2.18-3.98) Test 12/18/17 13:55 12/19/17 04:25 Prothrombin Time 12.8 SEC (11.7-14.0) 12.9 SEC (11.7-14.0) Prothromb Time International Ratio 1.0 (0.8-1.1) 1.0 (0.8-1.1) White Blood Count 10.1 x10^3/uL (4.0-11.0) Red Blood Count 5.38 x10^6/uL (3.50-5.40) Hemoglobin 15.8 g/dL (12.0-15.5) Hematocrit 44.9 % (36.0-47.0) Mean Corpuscular Volume 83 fL (79-100) Mean Corpuscular Hemoglobin 29 pg (25-35) Mean Corpuscular Hemoglobin Concent 35 g/dL (31-37) Red Cell Distribution Width 12.4 % (11.5-14.5) Platelet Count 307 x10^3/uL (140-400) Activated Partial Thromboplast Time 30 SEC (24-38) Fibrinogen 385 mg/dL (200-440) Sodium Level 138 mmol/L (136-145) Potassium Level 4.1 mmol/L (3.5-5.1) Chloride Level 100 mmol/L (98-107) Carbon Dioxide Level 30 mmol/L (21-32) Anion Gap 8 (6-14) Blood Urea Nitrogen 10 mg/dL (7-20) Creatinine 0.7 mg/dL (0.6-1.0) Estimated GFR (Cockcroft-Gault) 103.7 Glucose Level 128 mg/dL (70-99) Calcium Level 9.1 mg/dL (8.5-10.1) Albumin 3.8 g/dL (3.4-5.0) Hepatitis B Surface Antigen Nonreactive (Nonreactive) Hepatitis B Surface Antibody Reactive Laboratory Tests Test 12/18/17 13:55 12/19/17 04:25 Prothrombin Time 12.8 SEC (11.7-14.0) 12.9 SEC (11.7-14.0) Prothromb Time International Ratio 1.0 (0.8-1.1) 1.0 (0.8-1.1) White Blood Count 10.1 x10^3/uL (4.0-11.0) Red Blood Count 5.38 x10^6/uL (3.50-5.40) Hemoglobin 15.8 g/dL (12.0-15.5) Hematocrit 44.9 % (36.0-47.0) Mean Corpuscular Volume 83 fL (79-100) Mean Corpuscular Hemoglobin 29 pg (25-35) Mean Corpuscular Hemoglobin Concent 35 g/dL (31-37) Red Cell Distribution Width 12.4 % (11.5-14.5) Platelet Count 307 x10^3/uL (140-400) Activated Partial Thromboplast Time 30 SEC (24-38) Fibrinogen 385 mg/dL (200-440) Sodium Level 138 mmol/L (136-145) Potassium Level 4.1 mmol/L (3.5-5.1) Chloride Level 100 mmol/L (98-107) Carbon Dioxide Level 30 mmol/L (21-32) Anion Gap 8 (6-14) Blood Urea Nitrogen 10 mg/dL (7-20) Creatinine 0.7 mg/dL (0.6-1.0) Estimated GFR (Cockcroft-Gault) 103.7 Glucose Level 128 mg/dL (70-99) Calcium Level 9.1 mg/dL (8.5-10.1) Albumin 3.8 g/dL (3.4-5.0) Hepatitis B Surface Antigen Nonreactive (Nonreactive) Hepatitis B Surface Antibody Reactive Medications Current Medications Meclizine HCl (Antivert) 25 mg 1X ONCE PO Last administered on 12/17/17at 20:00 ; Start 12/17/17 at 20:00; Stop 12/17/17 at 20:01; Status DC Sodium Chloride 1,000 ml @ 1,000 mls/hr 1X ONCE IV Last administered on at 20:35; Start 12/17/17 at 20:15; Stop 12/17/17 at 21:14; Status DC Ketorolac Tromethamine (Toradol 15mg Vial) 15 mg 1X ONCE IV Last administered on 12/17/17at 20:36; Start 12/17/17 at 20:15; Stop 12/17/17 at 20:16; Status DC Diphenhydramine HCl (Benadryl) 25 mg 1X ONCE PO Last administered on at 02:16; Start 12/18/17 at 02:15; Stop 12/18/17 at 02:18; Status DC Acetaminophen (Tylenol) 500 mg PRN Q6HRS PRN PO MILD PAIN / TEMP; Start at 09:00 Acetaminophen/ Codeine Phosphate (Tylenol #3) 1 tab PRN Q6HRS PRN PO PAIN; Start 12/18/17 at 09:00; Stop 12/18/17 at 12:08; Status DC Ibuprofen (Motrin) 600 mg PRN Q6HRS PRN PO INFLAMMATION; Start 12/18/17 at 09: 00 Ondansetron HCl (Zofran) 4 mg PRN Q6HRS PRN IV NAUSEA/VOMITING; Start 12/18/17 at 09:00 Ondansetron HCl (Zofran Odt) 4 mg PRN Q6HRS PRN PO NAUSEA/VOMITING; Start 12/18 at 09:00; Stop 12/18/17 at 12:08; Status DC Fluticasone Propionate (Flonase) 1 spray DAILY NS ; Start 12/18/17 at 09:00 Acetaminophen/ Hydrocodone Bitart (Lortab 7.5-325/ 15ml Oral Solution) 15 ml PRN Q4HRS PRN PO MODERATE PAIN; Start 12/18/17 at 09:00 Non-Formulary Medication (Albuterol Sulfate (Proair Hfa Inhaler)) 1 puff PRN Q6HRS PRN INH SHORTNESS OF BREATH; Start 12/18/17 at 09:00; Status UNV Amoxicillin (Amoxil) 750 mg BID PO Last administered on 12/18/17at 21:02; Start 12/18/17 at 10:00 Levothyroxine Sodium (Synthroid) 25 mcg DAILY07 PO ; Start 12/18/17 at 10:30; Stop 12/18/17 at 12:08; Status DC Prednisone (Prednisone) 50 mg DAILY PO ; Start 12/18/17 at 10:00; Stop 12/18/17 at 12:08; Status DC Alprazolam (Xanax) 0.25 mg PRN Q8HRS PRN PO ANXIETY / AGITATION; Start at 09:00; Stop 12/19/17 at 08:14; Status DC Zolpidem Tartrate (Ambien) 5 mg PRN QHS PRN PO INSOMNIA; Start 12/18/17 at 09: 00; Stop 12/18/17 at 12:08; Status DC Cetirizine HCl (ZyrTEC) 10 mg DAILY PO ; Start 12/18/17 at 10:00; Stop 12/18/17 at 12:08; Status DC Non-Formulary Medication 1 ea 1X ONCE IV ; Start 12/18/17 at 09:00; Stop at 09:01; Status UNV Potassium Chloride/Dextrose/ Sod Cl 1,000 ml @ 80 mls/hr [id number] IV Last administered on 12/19/17at 01:13; Start 12/18/17 at 09:00 Albuterol Sulfate (Ventolin Neb Soln) 2.5 mg PRN Q6HRS PRN NEB SHORTNESS OF BREATH Last administered on 12/18/17at 13:12; Start 12/18/17 at 09:30 Iohexol (Omnipaque 300 Mg/ml) 75 ml 1X ONCE IV Last administered on 12/18/17at 10:31; Start 12/18/17 at 10:15; Stop 12/18/17 at 10:16; Status DC Info (CONTRAST GIVEN -- Rx MONITORING) 1 each PRN DAILY PRN MC SEE COMMENTS; Start 12/18/17 at 10:15; Stop 12/20/17 at 10:14 Levothyroxine Sodium 15 mcg/ Sodium Chloride 5 ml @ 100 mls/hr DAILY IVP Last administered on 12/18/17at 13:00; Start 12/18/17 at 12:30 Lorazepam (Ativan) 1 mg PRN Q4HRS PRN IV ANXIETY / AGITATION Last administered on 12/18/17at 23:01; Start 12/18/17 at 13:15 Alprazolam (Xanax) 0.25 mg PRN Q8HRS PRN NG ANXIETY / AGITATION Last administered on 12/19/17at 01:13; Start 12/18/17 at 13:15 Pyridostigmine [place] (Mestinon) 60 mg BID NG Last administered on 12/18/17at 21:01; Start 12/18/17 at 13:00 Prednisone (Prednisone) 50 mg DAILY PO Last administered on 12/18/17at 16:03; Start 12/18/17 at 13:00 Famotidine (Pepcid) 20 mg QHS PO Last administered on 12/18/17at 21:01; Start at 21:00 Calcium Carbonate/ Glycine (Oscal) 500 mg TIDAFTMEAL PO ; Start 12/18/17 at 18: 00 Ergocalciferol (Vitamin D2) 50,000 unit MoTh PO ; Start 12/19/17 at 09:00 Lidocaine/Sodium Bicarbonate (Buffered Lidocaine 1%) 3 ml STK-MED ONCE .ROUTE ; Start 12/18/17 at 14:32; Stop 12/18/17 at 14:33; Status DC Heparin Sodium (Porcine) (Heparin Sodium) 10,000 unit STK-MED ONCE .ROUTE ; Start 12/18/17 at 14:32; Stop 12/18/17 at 14:33; Status DC Lidocaine/Sodium Bicarbonate (Buffered Lidocaine 1%) 3 ml 1X ONCE INJ Last administered on 12/18/17at 15:15; Start 12/18/17 at 15:15; Stop 12/18/17 at 15:16 ; Status DC Heparin Sodium (Porcine) (Heparin Sodium) 2,200 unit 1X ONCE INT CAT Last administered on 12/18/17at 15:15; Start 12/18/17 at 15:15; Stop 12/18/17 at 15:16 ; Status DC Scopolamine (Transderm-Scop) 1 patch 1X ONCE TD Last administered on at 21:41; Start 12/18/17 at 21:30; Stop 12/18/17 at 21:31; Status DC Albumin Human 1,500 ml @ 0 mls/hr 1X ONCE IV ; Start 12/19/17 at 08:15; Stop 12/19/17 at 08:16; Status DC Heparin Sodium (Porcine) (Heparin Sodium) 10,000 unit STK-MED ONCE .ROUTE ; Start 12/19/17 at 08:40; Stop 12/19/17 at 08:41; Status DC Active Scripts Active Reported Amoxicillin 875 Mg Tablet 1 Tab PO BID Levothyroxine Sodium 25 Mcg Tablet 1 Tab PO DAILY Proair Hfa Inhaler (Albuterol Sulfate) 8.5 Gm Hfa.aer.ad 1 Puff INH PRN Q6HRS PRN [kaitlib fe] Hydrocodone-Apap 7.5-325/15 Soln (Hydrocodone Bit/Acetaminophen) 15 Ml Solution 15 Ml PO PRN Q4HRS PRN Prednisone 50 Mg Tablet 1 Tab PO DAILY Fluticasone Propionate Nasal [place] (Fluticasone Propionate) 16 Gm [place].susp 1 [place] NS DAILY [zoloft] [ativan] Vitals/I & O Vital Sign - Last 24 Hours 12/18/17 12/18/17 12/18/17 12/18/17 13:15 15:00 20:00 20:03 Temp 97.9 98.4 97.9 98.4 Pulse 108 104 Resp 20 24 B/P (MAP) 148/99 (115) 139/90 (106) Pulse Ox 98 97 93 O2 Delivery Room Air Room Air Room Air Room Air 12/18/17 12/19/17 12/19/17 12/19/17 23:10 03:09 07:00 08:10 Temp 98.4 97.6 97.5 98.4 97.6 97.5 Pulse 108 119 98 Resp 16 16 16 B/P (MAP) 137/91 (106) 139/104 (116) 142/90 (107) Pulse Ox 96 95 95 97 O2 Delivery Room Air Room Air Room Air Room Air Intake and Output 12/18/17 12/18/17 12/19/17 15:00 23:00 07:00 Intake Total 0 ml 0 ml Balance 0 ml 0 ml YVETTE CHAIREZ MD Dec 19, 2017 11:38
[2017-12-19] MEDS: ONDANSETRON PF 4 MG/2 ML VIAL. IV PRN (12:18)
--- NOTE | 2017-12-19 13:18 | RAD ---
History: Dobbhoff placement. Comparison: Earlier December 19, 2017. Findings: AP supine abdomen radiograph. There has been advancement of Dobbhoff tube. Dobbhoff tube now projects in the right upper quadrant with tip thought to project at the 2nd portion of the duodenum. Bowel gas pattern is nonspecific. Impression: Dobbhoff tube tip projects at the 2nd portion of duodenum. Electronically signed by: Eyal Flanagan MD (12/19/2017 1:14 PM) [place] [id number]
--- NOTE | 2017-12-19 14:43 | PDOC2 ---
CONSULT Date of Consult Date of Consult DATE: 12/19/17 TIME: 14:28 Reason for Consult Reason for Consult: Plasmapheresis Referring Physician Referring Physician: Dr. Urban Source Source: Chart review, Patient History of Present Illness Reason for Visit: The patient is a 22-year-old CF who has been feeling poorly for the past week. She notices weakness of her neck muscles and her head drops. She has had some right arm weakness. She is also c/o sinusitis, congestion, secretions, and her voice has changed. She went to the [facility] emergency department 3 days ago and had a negative CT of the neck. She has been on antibiotics for sinusitis. There is no history of neuromuscular disease in the family. 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 She denies any numbness, cognitive change, exposure to hazardous chemicals.No urinary complaints . Nephrology Consulted for Plasmapheresis Past Medical History Endocrine: Hypothyroidism (Eze's) Past Surgical History Past Surgical History: No pertinent history Family History Family History: Other (MS in the sister) Social History No ALCOHOL: none Drugs: None Current Problem List Problem List Problems Medical Problems: (1) Diplopia Status: Acute (2) Neck muscle weakness Status: Acute (3) RUE weakness Status: Acute (4) Sinusitis Status: Acute Current Medications Current Medications Current Medications Meclizine HCl (Antivert) 25 mg 1X ONCE PO Last administered on 12/17/17at 20:00 ; Start 12/17/17 at 20:00; Stop 12/17/17 at 20:01; Status DC Sodium Chloride 1,000 ml @ 1,000 mls/hr 1X ONCE IV Last administered on at 20:35; Start 12/17/17 at 20:15; Stop 12/17/17 at 21:14; Status DC Ketorolac Tromethamine (Toradol 15mg Vial) 15 mg 1X ONCE IV Last administered on 12/17/17at 20:36; Start 12/17/17 at 20:15; Stop 12/17/17 at 20:16; Status DC Diphenhydramine HCl (Benadryl) 25 mg 1X ONCE PO Last administered on at 02:16; Start 12/18/17 at 02:15; Stop 12/18/17 at 02:18; Status DC Acetaminophen (Tylenol) 500 mg PRN Q6HRS PRN PO MILD PAIN / TEMP; Start at 09:00 Acetaminophen/ Codeine Phosphate (Tylenol #3) 1 tab PRN Q6HRS PRN PO PAIN; Start 12/18/17 at 09:00; Stop 12/18/17 at 12:08; Status DC Ibuprofen (Motrin) 600 mg PRN Q6HRS PRN PO INFLAMMATION; Start 12/18/17 at 09: 00 Ondansetron HCl (Zofran) 4 mg PRN Q6HRS PRN IV NAUSEA/VOMITING Last administered on 12/19/17at 12:18; Start 12/18/17 at 09:00 Ondansetron HCl (Zofran Odt) 4 mg PRN Q6HRS PRN PO NAUSEA/VOMITING; Start 12/18 at 09:00; Stop 12/18/17 at 12:08; Status DC Fluticasone Propionate (Flonase) 1 spray DAILY NS ; Start 12/18/17 at 09:00 Acetaminophen/ Hydrocodone Bitart (Lortab 7.5-325/ 15ml Oral Solution) 15 ml PRN Q4HRS PRN PO MODERATE PAIN; Start 12/18/17 at 09:00 Non-Formulary Medication (Albuterol Sulfate (Proair Hfa Inhaler)) 1 puff PRN Q6HRS PRN INH SHORTNESS OF BREATH; Start 12/18/17 at 09:00; Status UNV Amoxicillin (Amoxil) 750 mg BID PO Last administered on 12/18/17at 21:02; Start 12/18/17 at 10:00 Levothyroxine Sodium (Synthroid) 25 mcg DAILY07 PO ; Start 12/18/17 at 10:30; Stop 12/18/17 at 12:08; Status DC Prednisone (Prednisone) 50 mg DAILY PO ; Start 12/18/17 at 10:00; Stop 12/18/17 at 12:08; Status DC Alprazolam (Xanax) 0.25 mg PRN Q8HRS PRN PO ANXIETY / AGITATION; Start at 09:00; Stop 12/19/17 at 08:14; Status DC Zolpidem Tartrate (Ambien) 5 mg PRN QHS PRN PO INSOMNIA; Start 12/18/17 at 09: 00; Stop 12/18/17 at 12:08; Status DC Cetirizine HCl (ZyrTEC) 10 mg DAILY PO ; Start 12/18/17 at 10:00; Stop 12/18/17 at 12:08; Status DC Non-Formulary Medication 1 ea 1X ONCE IV ; Start 12/18/17 at 09:00; Stop at 09:01; Status UNV Potassium Chloride/Dextrose/ Sod Cl 1,000 ml @ 80 mls/hr [id number] IV Last administered on 12/19/17at 01:13; Start 12/18/17 at 09:00 Albuterol Sulfate (Ventolin Neb Soln) 2.5 mg PRN Q6HRS PRN NEB SHORTNESS OF BREATH Last administered on 12/18/17at 13:12; Start 12/18/17 at 09:30 Iohexol (Omnipaque 300 Mg/ml) 75 ml 1X ONCE IV Last administered on 12/18/17at 10:31; Start 12/18/17 at 10:15; Stop 12/18/17 at 10:16; Status DC Info (CONTRAST GIVEN -- Rx MONITORING) 1 each PRN DAILY PRN MC SEE COMMENTS; Start 12/18/17 at 10:15; Stop 12/20/17 at 10:14 Levothyroxine Sodium 15 mcg/ Sodium Chloride 5 ml @ 100 mls/hr DAILY IVP Last administered on 12/18/17at 13:00; Start 12/18/17 at 12:30 Lorazepam (Ativan) 1 mg PRN Q4HRS PRN IV ANXIETY / AGITATION Last administered on 12/19/17at 12:16; Start 12/18/17 at 13:15 Alprazolam (Xanax) 0.25 mg PRN Q8HRS PRN NG ANXIETY / AGITATION Last administered on 12/19/17at 01:13; Start 12/18/17 at 13:15 Pyridostigmine [place] (Mestinon) 60 mg BID NG Last administered on 12/18/17at 21:01; Start 12/18/17 at 13:00 Prednisone (Prednisone) 50 mg DAILY PO Last administered on 12/18/17at 16:03; Start 12/18/17 at 13:00 Famotidine (Pepcid) 20 mg QHS PO Last administered on 12/18/17at 21:01; Start at 21:00 Calcium Carbonate/ Glycine (Oscal) 500 mg TIDAFTMEAL PO ; Start 12/18/17 at 18: 00 Ergocalciferol (Vitamin D2) 50,000 unit MoTh PO ; Start 12/19/17 at 09:00 Lidocaine/Sodium Bicarbonate (Buffered Lidocaine 1%) 3 ml STK-MED ONCE .ROUTE ; Start 12/18/17 at 14:32; Stop 12/18/17 at 14:33; Status DC Heparin Sodium (Porcine) (Heparin Sodium) 10,000 unit STK-MED ONCE .ROUTE ; Start 12/18/17 at 14:32; Stop 12/18/17 at 14:33; Status DC Lidocaine/Sodium Bicarbonate (Buffered Lidocaine 1%) 3 ml 1X ONCE INJ Last administered on 12/18/17at 15:15; Start 12/18/17 at 15:15; Stop 12/18/17 at 15:16 ; Status DC Heparin Sodium (Porcine) (Heparin Sodium) 2,200 unit 1X ONCE INT CAT Last administered on 12/18/17at 15:15; Start 12/18/17 at 15:15; Stop 12/18/17 at 15:16 ; Status DC Scopolamine (Transderm-Scop) 1 patch 1X ONCE TD Last administered on at 21:41; Start 12/18/17 at 21:30; Stop 12/19/17 at 11:49; Status DC Albumin Human 1,500 ml @ 0 mls/hr 1X ONCE IV Last administered on 12/19/17at 11:38; Start 12/19/17 at 08:15; Stop 12/19/17 at 08:16; Status DC Heparin Sodium (Porcine) (Heparin Sodium) 10,000 unit STK-MED ONCE .ROUTE ; Start 12/19/17 at 08:40; Stop 12/19/17 at 08:41; Status DC Active Scripts Active Reported Amoxicillin 875 Mg Tablet 1 Tab PO BID Levothyroxine Sodium 25 Mcg Tablet 1 Tab PO DAILY Proair Hfa Inhaler (Albuterol Sulfate) 8.5 Gm Hfa.aer.ad 1 Puff INH PRN Q6HRS PRN [kaitlib fe] Hydrocodone-Apap 7.5-325/15 Soln (Hydrocodone Bit/Acetaminophen) 15 Ml Solution 15 Ml PO PRN Q4HRS PRN Prednisone 50 Mg Tablet 1 Tab PO DAILY Fluticasone Propionate Nasal Warren (Fluticasone Propionate) 16 Gm Warren.susp 1 Warren NS DAILY [zoloft] [ativan] Allergies Allergies: Coded Allergies: No Known Drug Allergies (Unverified , 12/17/17) ROS Review of System As per HPI Physical Exam Physical Exam GEN: NAD HEEN: om MOIST , diplopia NECK: No JVD CVS: RRR RESP: CTA bilat, No Acc. Muscle Use GI: BS + ve, NO Bruit, Non Tender, Non Distended : No CVA tenderness, [No Suprapubic Tenderness, No de leon Derm- No Rash Neuro- as Per Neurologist Vital Signs Vital Signs Date Time Temp Pulse Resp B/P (MAP) Pulse Ox O2 Delivery O2 Flow Rate FiO2 12/19/17 08:10 97 Room Air 12/19/17 07:00 97.5 98 16 142/90 (107) 97.5 Assessment & Plan Suspect Myasthenia Gravis- as per Neurologist Requesting TPEx 5 treatment 1st today - seen during treatment , Tolerating well Eze's Thyoiditis Discussed with licensed appraiser Labs Labs Laboratory Tests Test 12/17/17 20:20 12/17/17 20:22 12/17/17 20:28 12/18/17 10:15 Urine Opiates Screen Neg (NEG) Urine Methadone Screen Neg (NEG) Urine Barbiturates Neg (NEG) Urine Phencyclidine Screen Neg (NEG) Urine Amphetamine/Methamphetamine Neg (NEG) Urine Benzodiazepines Screen Neg (NEG) Urine Cocaine Screen Neg (NEG) Urine Cannabinoids Screen Pos (NEG) Urine Ethyl Alcohol Neg (NEG) Bedside Urine HCG, Qualitative Hcg negative (Negative) White Blood Count 10.5 x10^3/uL (4.0-11.0) Red Blood Count 5.39 x10^6/uL (3.50-5.40) Hemoglobin 16.0 g/dL (12.0-15.5) Hematocrit 45.3 % (36.0-47.0) Mean Corpuscular Volume 84 fL (79-100) Mean Corpuscular Hemoglobin 30 pg (25-35) Mean Corpuscular Hemoglobin Concent 35 g/dL (31-37) Red Cell Distribution Width 12.4 % (11.5-14.5) Platelet Count 342 x10^3/uL (140-400) Neutrophils (%) (Auto) 86 % (31-73) Lymphocytes (%) (Auto) 11 % (24-48) Monocytes (%) (Auto) 3 % (0-9) Eosinophils (%) (Auto) 0 % (0-3) Basophils (%) (Auto) 0 % (0-3) Neutrophils # (Auto) 9.0 x10^3uL (1.8-7.7) Lymphocytes # (Auto) 1.1 x10^3/uL (1.0-4.8) Monocytes # (Auto) 0.3 x10^3/uL (0.0-1.1) Eosinophils # (Auto) 0.0 x10^3/uL (0.0-0.7) Basophils # (Auto) 0.0 x10^3/uL (0.0-0.2) Segmented Neutrophils % 88 % (35-66) Lymphocytes % 8 % (24-48) Monocytes % 4 % (0-10) Platelet Estimate Adequate (ADEQUATE) Sodium Level 130 mmol/L (136-145) Potassium Level 4.0 mmol/L (3.5-5.1) Chloride Level 97 mmol/L (98-107) Carbon Dioxide Level 27 mmol/L (21-32) Anion Gap 6 (6-14) Blood Urea Nitrogen 17 mg/dL (7-20) Creatinine 0.8 mg/dL (0.6-1.0) Estimated GFR (Cockcroft-Gault) 88.9 BUN/Creatinine Ratio 21 (6-20) Glucose Level 119 mg/dL (70-99) Calcium Level 9.6 mg/dL (8.5-10.1) Total Bilirubin 0.5 mg/dL (0.2-1.0) Aspartate Amino Transf (AST/SGOT) 37 U/L (15-37) Alanine Aminotransferase (ALT/SGPT) 81 U/L (14-59) Alkaline Phosphatase 60 U/L (46-116) Total Protein 8.8 g/dL (6.4-8.2) Albumin 3.9 g/dL (3.4-5.0) Albumin/Globulin Ratio 0.8 (1.0-1.7) Thyroid Stimulating Hormone (TSH) 2.170 uIU/mL (0.358-3.74) Ethyl Alcohol Level < 10 mg/dL (0-10) Erythrocyte Sedimentation Rate 12 (0-25) Magnesium Level 2.4 mg/dL (1.8-2.4) Free Thyroxine 1.26 ng/dL (0.76-1.46) Free Triiodothyronine (T3) pg/mL 1.65 pg/mL (2.18-3.98) Test 12/18/17 13:55 12/19/17 04:25 Prothrombin Time 12.8 SEC (11.7-14.0) 12.9 SEC (11.7-14.0) Prothromb Time International Ratio 1.0 (0.8-1.1) 1.0 (0.8-1.1) White Blood Count 10.1 x10^3/uL (4.0-11.0) Red Blood Count 5.38 x10^6/uL (3.50-5.40) Hemoglobin 15.8 g/dL (12.0-15.5) Hematocrit 44.9 % (36.0-47.0) Mean Corpuscular Volume 83 fL (79-100) Mean Corpuscular Hemoglobin 29 pg (25-35) Mean Corpuscular Hemoglobin Concent 35 g/dL (31-37) Red Cell Distribution Width 12.4 % (11.5-14.5) Platelet Count 307 x10^3/uL (140-400) Activated Partial Thromboplast Time 30 SEC (24-38) Fibrinogen 385 mg/dL (200-440) Sodium Level 138 mmol/L (136-145) Potassium Level 4.1 mmol/L (3.5-5.1) Chloride Level 100 mmol/L (98-107) Carbon Dioxide Level 30 mmol/L (21-32) Anion Gap 8 (6-14) Blood Urea Nitrogen 10 mg/dL (7-20) Creatinine 0.7 mg/dL (0.6-1.0) Estimated GFR (Cockcroft-Gault) 103.7 Glucose Level 128 mg/dL (70-99) Calcium Level 9.1 mg/dL (8.5-10.1) Albumin 3.8 g/dL (3.4-5.0) Hepatitis B Surface Antigen Nonreactive (Nonreactive) Hepatitis B Surface Antibody Reactive Laboratory Tests Test 12/19/17 04:25 White Blood Count 10.1 x10^3/uL (4.0-11.0) Red Blood Count 5.38 x10^6/uL (3.50-5.40) Hemoglobin 15.8 g/dL (12.0-15.5) Hematocrit 44.9 % (36.0-47.0) Mean Corpuscular Volume 83 fL (79-100) Mean Corpuscular Hemoglobin 29 pg (25-35) Mean Corpuscular Hemoglobin Concent 35 g/dL (31-37) Red Cell Distribution Width 12.4 % (11.5-14.5) Platelet Count 307 x10^3/uL (140-400) Prothrombin Time 12.9 SEC (11.7-14.0) Prothromb Time International Ratio 1.0 (0.8-1.1) Activated Partial Thromboplast Time 30 SEC (24-38) Fibrinogen 385 mg/dL (200-440) Sodium Level 138 mmol/L (136-145) Potassium Level 4.1 mmol/L (3.5-5.1) Chloride Level 100 mmol/L (98-107) Carbon Dioxide Level 30 mmol/L (21-32) Anion Gap 8 (6-14) Blood Urea Nitrogen 10 mg/dL (7-20) Creatinine 0.7 mg/dL (0.6-1.0) Estimated GFR (Cockcroft-Gault) 103.7 Glucose Level 128 mg/dL (70-99) Calcium Level 9.1 mg/dL (8.5-10.1) Albumin 3.8 g/dL (3.4-5.0) Hepatitis B Surface Antigen Nonreactive (Nonreactive) Hepatitis B Surface Antibody Reactive Review All relevant outside records, renal labs, imaging studies, telemetry/EKG's were reviewed. Images Images CT head: The ventricles are midline without evidence of dilatation. Normal camargo-white differentiation is maintained. There is no extra axial fluid collection, intraparenchymal hemorrhage or mass lesion. The visualized portions of the orbits, paranasal sinuses and the mastoid air cells appear clear. The calvarium is intact. Impression: 1. No acute intracranial process detected. THERESA TOLBERT MD Dec 19, 2017 14:43
[2017-12-19 15:00] VITALS: BP 113/71
[2017-12-19] MEDS: LEVOTHYROXINE SODIUM IVP SCH (15:02)
[2017-12-19] MEDS: NORMAL SALINE IVP SCH (15:02)
[2017-12-19] MEDS: AMOXICILLIN 250 MG CAPSULE. PO SCH (15:02)
[2017-12-19] MEDS: predniSONE 10 MG TABLET PO SCH (15:03)
[2017-12-19] MEDS: PYRIDOSTIGMINE BROMIDE 60 MG TABLET NG SCH (15:03)
--- NOTE | 2017-12-19 16:27 | PDOC ---
PROGRESS NOTES Assessment Problems Medical Problems: (1) Diplopia Status: Acute (2) Neck muscle weakness Status: Acute (3) RUE weakness Status: Acute (4) Sinusitis Status: Acute Myasthenia gravis, improved with steroids and one plasmapheresis. She still has severe dysphagia, has great difficulty tolerating the Dobbhoff tube. After I left, nurse called me back to say the patient was feeling Dobbhoff fluid go into her throat. Chest CT negative for thymoma Plan Await myasthenia serology. Speech therapy Respiratory therapy to monitor negative inspiratory force Pulmonary consultation appreciated Plasmapheresis QOD Change to IV steroids and pyridostigmine D/C Dobhoff, TPN Sopalamine is contraindicated in MG, I discontinued it. Please okay all new meds with me or pharmacy I fully discussed with the patient and her mother. Subjective Complains of difficulty tolerating Dobbhoff, is very anxious, boyfriend is worried that stresses making the myasthenia worse and wonders if she can go home , but I did tell family that that was not possible. Objective Vital Signs Date Time Temp Pulse Resp B/P (MAP) Pulse Ox O2 Delivery O2 Flow Rate FiO2 12/19/17 15:00 97.9 134 16 113/71 (85) 97 Room Air 97.9 Intake and Output 12/19/17 07:00 Intake Total 0 ml Balance 0 ml Intake Oral 0 ml # Voids 6 PHYSICAL EXAM Alert. Oriented to time, place and person. PERRL. EOMI. CN: no focal findings. She still has subjective diplopia. Her voice is less hypernasal. Neck extension is improved, 4/5 Muscle tone: normal. Muscle strength: Right arm strength better, 4/5, otherwise 5/5 DTR: 2+ Plantar reflex: Flexor Gait: not examined in bed. Sensory exam: no abnormal findings. No cerebellar signs elicited. Review of Relevant I have reviewed the following items maliha (where applicable) has been applied. Labs Laboratory Tests Test 12/17/17 20:20 12/17/17 20:22 12/17/17 20:28 12/18/17 10:15 Urine Opiates Screen Neg (NEG) Urine Methadone Screen Neg (NEG) Urine Barbiturates Neg (NEG) Urine Phencyclidine Screen Neg (NEG) Urine Amphetamine/Methamphetamine Neg (NEG) Urine Benzodiazepines Screen Neg (NEG) Urine Cocaine Screen Neg (NEG) Urine Cannabinoids Screen Pos (NEG) Urine Ethyl Alcohol Neg (NEG) Bedside Urine HCG, Qualitative Hcg negative (Negative) White Blood Count 10.5 x10^3/uL (4.0-11.0) Red Blood Count 5.39 x10^6/uL (3.50-5.40) Hemoglobin 16.0 g/dL (12.0-15.5) Hematocrit 45.3 % (36.0-47.0) Mean Corpuscular Volume 84 fL (79-100) Mean Corpuscular Hemoglobin 30 pg (25-35) Mean Corpuscular Hemoglobin Concent 35 g/dL (31-37) Red Cell Distribution Width 12.4 % (11.5-14.5) Platelet Count 342 x10^3/uL (140-400) Neutrophils (%) (Auto) 86 % (31-73) Lymphocytes (%) (Auto) 11 % (24-48) Monocytes (%) (Auto) 3 % (0-9) Eosinophils (%) (Auto) 0 % (0-3) Basophils (%) (Auto) 0 % (0-3) Neutrophils # (Auto) 9.0 x10^3uL (1.8-7.7) Lymphocytes # (Auto) 1.1 x10^3/uL (1.0-4.8) Monocytes # (Auto) 0.3 x10^3/uL (0.0-1.1) Eosinophils # (Auto) 0.0 x10^3/uL (0.0-0.7) Basophils # (Auto) 0.0 x10^3/uL (0.0-0.2) Segmented Neutrophils % 88 % (35-66) Lymphocytes % 8 % (24-48) Monocytes % 4 % (0-10) Platelet Estimate Adequate (ADEQUATE) Sodium Level 130 mmol/L (136-145) Potassium Level 4.0 mmol/L (3.5-5.1) Chloride Level 97 mmol/L (98-107) Carbon Dioxide Level 27 mmol/L (21-32) Anion Gap 6 (6-14) Blood Urea Nitrogen 17 mg/dL (7-20) Creatinine 0.8 mg/dL (0.6-1.0) Estimated GFR (Cockcroft-Gault) 88.9 BUN/Creatinine Ratio 21 (6-20) Glucose Level 119 mg/dL (70-99) Calcium Level 9.6 mg/dL (8.5-10.1) Total Bilirubin 0.5 mg/dL (0.2-1.0) Aspartate Amino Transf (AST/SGOT) 37 U/L (15-37) Alanine Aminotransferase (ALT/SGPT) 81 U/L (14-59) Alkaline Phosphatase 60 U/L (46-116) Total Protein 8.8 g/dL (6.4-8.2) Albumin 3.9 g/dL (3.4-5.0) Albumin/Globulin Ratio 0.8 (1.0-1.7) Thyroid Stimulating Hormone (TSH) 2.170 uIU/mL (0.358-3.74) Ethyl Alcohol Level < 10 mg/dL (0-10) Erythrocyte Sedimentation Rate 12 (0-25) Magnesium Level 2.4 mg/dL (1.8-2.4) Free Thyroxine 1.26 ng/dL (0.76-1.46) Free Triiodothyronine (T3) pg/mL 1.65 pg/mL (2.18-3.98) Test 12/18/17 13:55 12/19/17 04:25 Prothrombin Time 12.8 SEC (11.7-14.0) 12.9 SEC (11.7-14.0) Prothromb Time International Ratio 1.0 (0.8-1.1) 1.0 (0.8-1.1) White Blood Count 10.1 x10^3/uL (4.0-11.0) Red Blood Count 5.38 x10^6/uL (3.50-5.40) Hemoglobin 15.8 g/dL (12.0-15.5) Hematocrit 44.9 % (36.0-47.0) Mean Corpuscular Volume 83 fL (79-100) Mean Corpuscular Hemoglobin 29 pg (25-35) Mean Corpuscular Hemoglobin Concent 35 g/dL (31-37) Red Cell Distribution Width 12.4 % (11.5-14.5) Platelet Count 307 x10^3/uL (140-400) Activated Partial Thromboplast Time 30 SEC (24-38) Fibrinogen 385 mg/dL (200-440) Sodium Level 138 mmol/L (136-145) Potassium Level 4.1 mmol/L (3.5-5.1) Chloride Level 100 mmol/L (98-107) Carbon Dioxide Level 30 mmol/L (21-32) Anion Gap 8 (6-14) Blood Urea Nitrogen 10 mg/dL (7-20) Creatinine 0.7 mg/dL (0.6-1.0) Estimated GFR (Cockcroft-Gault) 103.7 Glucose Level 128 mg/dL (70-99) Calcium Level 9.1 mg/dL (8.5-10.1) Albumin 3.8 g/dL (3.4-5.0) Hepatitis B Surface Antigen Nonreactive (Nonreactive) Hepatitis B Surface Antibody Reactive Laboratory Tests Test 12/19/17 04:25 White Blood Count 10.1 x10^3/uL (4.0-11.0) Red Blood Count 5.38 x10^6/uL (3.50-5.40) Hemoglobin 15.8 g/dL (12.0-15.5) Hematocrit 44.9 % (36.0-47.0) Mean Corpuscular Volume 83 fL (79-100) Mean Corpuscular Hemoglobin 29 pg (25-35) Mean Corpuscular Hemoglobin Concent 35 g/dL (31-37) Red Cell Distribution Width 12.4 % (11.5-14.5) Platelet Count 307 x10^3/uL (140-400) Prothrombin Time 12.9 SEC (11.7-14.0) Prothromb Time International Ratio 1.0 (0.8-1.1) Activated Partial Thromboplast Time 30 SEC (24-38) Fibrinogen 385 mg/dL (200-440) Sodium Level 138 mmol/L (136-145) Potassium Level 4.1 mmol/L (3.5-5.1) Chloride Level 100 mmol/L (98-107) Carbon Dioxide Level 30 mmol/L (21-32) Anion Gap 8 (6-14) Blood Urea Nitrogen 10 mg/dL (7-20) Creatinine 0.7 mg/dL (0.6-1.0) Estimated GFR (Cockcroft-Gault) 103.7 Glucose Level 128 mg/dL (70-99) Calcium Level 9.1 mg/dL (8.5-10.1) Albumin 3.8 g/dL (3.4-5.0) Hepatitis B Surface Antigen Nonreactive (Nonreactive) Hepatitis B Surface Antibody Reactive Medications Current Medications Meclizine HCl (Antivert) 25 mg 1X ONCE PO Last administered on 12/17/17at 20:00 ; Start 12/17/17 at 20:00; Stop 12/17/17 at 20:01; Status DC Sodium Chloride 1,000 ml @ 1,000 mls/hr 1X ONCE IV Last administered on at 20:35; Start 12/17/17 at 20:15; Stop 12/17/17 at 21:14; Status DC Ketorolac Tromethamine (Toradol 15mg Vial) 15 mg 1X ONCE IV Last administered on 12/17/17at 20:36; Start 12/17/17 at 20:15; Stop 12/17/17 at 20:16; Status DC Diphenhydramine HCl (Benadryl) 25 mg 1X ONCE PO Last administered on at 02:16; Start 12/18/17 at 02:15; Stop 12/18/17 at 02:18; Status DC Acetaminophen (Tylenol) 500 mg PRN Q6HRS PRN PO MILD PAIN / TEMP; Start at 09:00 Acetaminophen/ Codeine Phosphate (Tylenol #3) 1 tab PRN Q6HRS PRN PO PAIN; Start 12/18/17 at 09:00; Stop 12/18/17 at 12:08; Status DC Ibuprofen (Motrin) 600 mg PRN Q6HRS PRN PO INFLAMMATION; Start 12/18/17 at 09: 00 Ondansetron HCl (Zofran) 4 mg PRN Q6HRS PRN IV NAUSEA/VOMITING Last administered on 12/19/17at 12:18; Start 12/18/17 at 09:00 Ondansetron HCl (Zofran Odt) 4 mg PRN Q6HRS PRN PO NAUSEA/VOMITING; Start 12/18 at 09:00; Stop 12/18/17 at 12:08; Status DC Fluticasone Propionate (Flonase) 1 spray DAILY NS Last administered on at 09:00; Start 12/18/17 at 09:00 Acetaminophen/ Hydrocodone Bitart (Lortab 7.5-325/ 15ml Oral Solution) 15 ml PRN Q4HRS PRN PO MODERATE PAIN; Start 12/18/17 at 09:00 Non-Formulary Medication (Albuterol Sulfate (Proair Hfa Inhaler)) 1 puff PRN Q6HRS PRN INH SHORTNESS OF BREATH; Start 12/18/17 at 09:00; Status UNV Amoxicillin (Amoxil) 750 mg BID PO Last administered on 12/18/17at 21:02; Start 12/18/17 at 10:00 Levothyroxine Sodium (Synthroid) 25 mcg DAILY07 PO ; Start 12/18/17 at 10:30; Stop 12/18/17 at 12:08; Status DC Prednisone (Prednisone) 50 mg DAILY PO ; Start 12/18/17 at 10:00; Stop 12/18/17 at 12:08; Status DC Alprazolam (Xanax) 0.25 mg PRN Q8HRS PRN PO ANXIETY / AGITATION; Start at 09:00; Stop 12/19/17 at 08:14; Status DC Zolpidem Tartrate (Ambien) 5 mg PRN QHS PRN PO INSOMNIA; Start 12/18/17 at 09: 00; Stop 12/18/17 at 12:08; Status DC Cetirizine HCl (ZyrTEC) 10 mg DAILY PO ; Start 12/18/17 at 10:00; Stop 12/18/17 at 12:08; Status DC Non-Formulary Medication 1 ea 1X ONCE IV ; Start 12/18/17 at 09:00; Stop at 09:01; Status UNV Potassium Chloride/Dextrose/ Sod Cl 1,000 ml @ 80 mls/hr [id number] IV Last administered on 12/19/17at 10:00; Start 12/18/17 at 09:00 Albuterol Sulfate (Ventolin Neb Soln) 2.5 mg PRN Q6HRS PRN NEB SHORTNESS OF BREATH Last administered on 12/18/17at 13:12; Start 12/18/17 at 09:30 Iohexol (Omnipaque 300 Mg/ml) 75 ml 1X ONCE IV Last administered on 12/18/17at 10:31; Start 12/18/17 at 10:15; Stop 12/18/17 at 10:16; Status DC Info (CONTRAST GIVEN -- Rx MONITORING) 1 each PRN DAILY PRN MC SEE COMMENTS; Start 12/18/17 at 10:15; Stop 12/20/17 at 10:14 Levothyroxine Sodium 15 mcg/ Sodium Chloride 5 ml @ 100 mls/hr DAILY IVP Last administered on 12/19/17at 15:02; Start 12/18/17 at 12:30 Lorazepam (Ativan) 1 mg PRN Q4HRS PRN IV ANXIETY / AGITATION Last administered on 12/19/17at 12:16; Start 12/18/17 at 13:15 Alprazolam (Xanax) 0.25 mg PRN Q8HRS PRN NG ANXIETY / AGITATION Last administered on 12/19/17at 01:13; Start 12/18/17 at 13:15 Pyridostigmine Acra (Mestinon) 60 mg BID NG Last administered on 12/18/17at 21:01; Start 12/18/17 at 13:00 Prednisone (Prednisone) 50 mg DAILY PO Last administered on 12/18/17at 16:03; Start 12/18/17 at 13:00 Famotidine (Pepcid) 20 mg QHS PO Last administered on 12/18/17at 21:01; Start at 21:00 Calcium Carbonate/ Glycine (Oscal) 500 mg TIDAFTMEAL PO ; Start 12/18/17 at 18: 00 Ergocalciferol (Vitamin D2) 50,000 unit MoTh PO ; Start 12/19/17 at 09:00 Lidocaine/Sodium Bicarbonate (Buffered Lidocaine 1%) 3 ml STK-MED ONCE .ROUTE ; Start 12/18/17 at 14:32; Stop 12/18/17 at 14:33; Status DC Heparin Sodium (Porcine) (Heparin Sodium) 10,000 unit STK-MED ONCE .ROUTE ; Start 12/18/17 at 14:32; Stop 12/18/17 at 14:33; Status DC Lidocaine/Sodium Bicarbonate (Buffered Lidocaine 1%) 3 ml 1X ONCE INJ Last administered on 12/18/17at 15:15; Start 12/18/17 at 15:15; Stop 12/18/17 at 15:16 ; Status DC Heparin Sodium (Porcine) (Heparin Sodium) 2,200 unit 1X ONCE INT CAT Last administered on 12/18/17at 15:15; Start 12/18/17 at 15:15; Stop 12/18/17 at 15:16 ; Status DC Scopolamine (Transderm-Scop) 1 patch 1X ONCE TD Last administered on at 21:41; Start 12/18/17 at 21:30; Stop 12/19/17 at 11:49; Status DC Albumin Human 1,500 ml @ 0 mls/hr 1X ONCE IV Last administered on 12/19/17at 11:38; Start 12/19/17 at 08:15; Stop 12/19/17 at 08:16; Status DC Heparin Sodium (Porcine) (Heparin Sodium) 10,000 unit STK-MED ONCE .ROUTE ; Start 12/19/17 at 08:40; Stop 12/19/17 at 08:41; Status DC Active Scripts Active Reported Amoxicillin 875 Mg Tablet 1 Tab PO BID Levothyroxine Sodium 25 Mcg Tablet 1 Tab PO DAILY Proair Hfa Inhaler (Albuterol Sulfate) 8.5 Gm Hfa.aer.ad 1 Puff INH PRN Q6HRS PRN [kaitlib fe] Hydrocodone-Apap 7.5-325/15 Soln (Hydrocodone Bit/Acetaminophen) 15 Ml Solution 15 Ml PO PRN Q4HRS PRN Prednisone 50 Mg Tablet 1 Tab PO DAILY Fluticasone Propionate Nasal Mitchell (Fluticasone Propionate) 16 Gm Mitchell.susp 1 Mitchell NS DAILY [zoloft] [ativan] Vitals/I & O Vital Sign - Last 24 Hours 12/18/17 12/18/17 12/18/17 12/19/17 20:00 20:03 23:10 03:09 Temp 98.4 98.4 97.6 98.4 98.4 97.6 Pulse 104 108 119 Resp 24 16 16 B/P (MAP) 139/90 (106) 137/91 (106) 139/104 (116) Pulse Ox 93 96 95 O2 Delivery Room Air Room Air Room Air Room Air 12/19/17 12/19/17 12/19/17 12/19/17 07:00 08:00 08:10 15:00 Temp 97.5 97.9 97.5 97.9 Pulse 98 134 Resp 16 16 B/P (MAP) 142/90 (107) 113/71 (85) Pulse Ox 95 97 97 O2 Delivery Room Air Room Air Room Air Room Air Intake and Output 12/18/17 12/18/17 12/19/17 15:00 23:00 07:00 Intake Total 0 ml 0 ml Balance 0 ml 0 ml GAURAV BARONE MD Dec 19, 2017 16:27
[2017-12-19 16:57] VITALS: BP 111/72
--- NOTE | 2017-12-19 19:53 | PDOC ---
PULMONARY PROGRESS NOTES Subjective PT NOT WORSE NO INCREASE SOA COUGH IS WEAK Vitals Vital Signs Date Time Temp Pulse Resp B/P (MAP) Pulse Ox O2 Delivery O2 Flow Rate FiO2 12/19/17 16:57 132 22 111/72 (85) 99 Room Air 12/19/17 15:00 97.9 97.9 ROS: No Nausea, No Chest Pain, No Abdominal Pain, No Increase Cough Lungs: Clear Cardiovascular: S1 Abdomen: Soft Neuro Exam: Alert Extremities: No Edema Skin: Warm Labs Laboratory Tests Test 12/17/17 20:20 12/17/17 20:22 12/17/17 20:28 12/18/17 10:15 Urine Opiates Screen Neg (NEG) Urine Methadone Screen Neg (NEG) Urine Barbiturates Neg (NEG) Urine Phencyclidine Screen Neg (NEG) Urine Amphetamine/Methamphetamine Neg (NEG) Urine Benzodiazepines Screen Neg (NEG) Urine Cocaine Screen Neg (NEG) Urine Cannabinoids Screen Pos (NEG) Urine Ethyl Alcohol Neg (NEG) Bedside Urine HCG, Qualitative Hcg negative (Negative) White Blood Count 10.5 x10^3/uL (4.0-11.0) Red Blood Count 5.39 x10^6/uL (3.50-5.40) Hemoglobin 16.0 g/dL (12.0-15.5) Hematocrit 45.3 % (36.0-47.0) Mean Corpuscular Volume 84 fL (79-100) Mean Corpuscular Hemoglobin 30 pg (25-35) Mean Corpuscular Hemoglobin Concent 35 g/dL (31-37) Red Cell Distribution Width 12.4 % (11.5-14.5) Platelet Count 342 x10^3/uL (140-400) Neutrophils (%) (Auto) 86 % (31-73) Lymphocytes (%) (Auto) 11 % (24-48) Monocytes (%) (Auto) 3 % (0-9) Eosinophils (%) (Auto) 0 % (0-3) Basophils (%) (Auto) 0 % (0-3) Neutrophils # (Auto) 9.0 x10^3uL (1.8-7.7) Lymphocytes # (Auto) 1.1 x10^3/uL (1.0-4.8) Monocytes # (Auto) 0.3 x10^3/uL (0.0-1.1) Eosinophils # (Auto) 0.0 x10^3/uL (0.0-0.7) Basophils # (Auto) 0.0 x10^3/uL (0.0-0.2) Segmented Neutrophils % 88 % (35-66) Lymphocytes % 8 % (24-48) Monocytes % 4 % (0-10) Platelet Estimate Adequate (ADEQUATE) Sodium Level 130 mmol/L (136-145) Potassium Level 4.0 mmol/L (3.5-5.1) Chloride Level 97 mmol/L (98-107) Carbon Dioxide Level 27 mmol/L (21-32) Anion Gap 6 (6-14) Blood Urea Nitrogen 17 mg/dL (7-20) Creatinine 0.8 mg/dL (0.6-1.0) Estimated GFR (Cockcroft-Gault) 88.9 BUN/Creatinine Ratio 21 (6-20) Glucose Level 119 mg/dL (70-99) Calcium Level 9.6 mg/dL (8.5-10.1) Total Bilirubin 0.5 mg/dL (0.2-1.0) Aspartate Amino Transf (AST/SGOT) 37 U/L (15-37) Alanine Aminotransferase (ALT/SGPT) 81 U/L (14-59) Alkaline Phosphatase 60 U/L (46-116) Total Protein 8.8 g/dL (6.4-8.2) Albumin 3.9 g/dL (3.4-5.0) Albumin/Globulin Ratio 0.8 (1.0-1.7) Thyroid Stimulating Hormone (TSH) 2.170 uIU/mL (0.358-3.74) Ethyl Alcohol Level < 10 mg/dL (0-10) Erythrocyte Sedimentation Rate 12 (0-25) Magnesium Level 2.4 mg/dL (1.8-2.4) Free Thyroxine 1.26 ng/dL (0.76-1.46) Free Triiodothyronine (T3) pg/mL 1.65 pg/mL (2.18-3.98) Test 12/18/17 13:55 12/19/17 04:25 Prothrombin Time 12.8 SEC (11.7-14.0) 12.9 SEC (11.7-14.0) Prothromb Time International Ratio 1.0 (0.8-1.1) 1.0 (0.8-1.1) White Blood Count 10.1 x10^3/uL (4.0-11.0) Red Blood Count 5.38 x10^6/uL (3.50-5.40) Hemoglobin 15.8 g/dL (12.0-15.5) Hematocrit 44.9 % (36.0-47.0) Mean Corpuscular Volume 83 fL (79-100) Mean Corpuscular Hemoglobin 29 pg (25-35) Mean Corpuscular Hemoglobin Concent 35 g/dL (31-37) Red Cell Distribution Width 12.4 % (11.5-14.5) Platelet Count 307 x10^3/uL (140-400) Activated Partial Thromboplast Time 30 SEC (24-38) Fibrinogen 385 mg/dL (200-440) Sodium Level 138 mmol/L (136-145) Potassium Level 4.1 mmol/L (3.5-5.1) Chloride Level 100 mmol/L (98-107) Carbon Dioxide Level 30 mmol/L (21-32) Anion Gap 8 (6-14) Blood Urea Nitrogen 10 mg/dL (7-20) Creatinine 0.7 mg/dL (0.6-1.0) Estimated GFR (Cockcroft-Gault) 103.7 Glucose Level 128 mg/dL (70-99) Calcium Level 9.1 mg/dL (8.5-10.1) Albumin 3.8 g/dL (3.4-5.0) Hepatitis B Surface Antigen Nonreactive (Nonreactive) Hepatitis B Surface Antibody Reactive Laboratory Tests Test 12/19/17 04:25 White Blood Count 10.1 x10^3/uL (4.0-11.0) Red Blood Count 5.38 x10^6/uL (3.50-5.40) Hemoglobin 15.8 g/dL (12.0-15.5) Hematocrit 44.9 % (36.0-47.0) Mean Corpuscular Volume 83 fL (79-100) Mean Corpuscular Hemoglobin 29 pg (25-35) Mean Corpuscular Hemoglobin Concent 35 g/dL (31-37) Red Cell Distribution Width 12.4 % (11.5-14.5) Platelet Count 307 x10^3/uL (140-400) Prothrombin Time 12.9 SEC (11.7-14.0) Prothromb Time International Ratio 1.0 (0.8-1.1) Activated Partial Thromboplast Time 30 SEC (24-38) Fibrinogen 385 mg/dL (200-440) Sodium Level 138 mmol/L (136-145) Potassium Level 4.1 mmol/L (3.5-5.1) Chloride Level 100 mmol/L (98-107) Carbon Dioxide Level 30 mmol/L (21-32) Anion Gap 8 (6-14) Blood Urea Nitrogen 10 mg/dL (7-20) Creatinine 0.7 mg/dL (0.6-1.0) Estimated GFR (Cockcroft-Gault) 103.7 Glucose Level 128 mg/dL (70-99) Calcium Level 9.1 mg/dL (8.5-10.1) Albumin 3.8 g/dL (3.4-5.0) Hepatitis B Surface Antigen Nonreactive (Nonreactive) Hepatitis B Surface Antibody Reactive Medications Active Scripts Medications Dose Route/Sig Max Daily Dose Days Date Category Amoxicillin 875 Mg Tablet 1 Tab PO BID 12/18/17 Reported Levothyroxine Sodium 25 Mcg Tablet 1 Tab PO DAILY 12/18/17 Reported Proair Hfa Inhaler (Albuterol Sulfate) 8.5 Gm Hfa.aer.ad 1 Puff INH PRN Q6HRS PRN 12/18/17 Reported [kaitlib fe] 12/18/17 Reported Hydrocodone-Apap 7.5-325/15 Soln (Hydrocodone Bit/Acetaminophen) 15 Ml Solution 15 Ml PO PRN Q4HRS PRN 12/18/17 Reported Prednisone 50 Mg Tablet 1 Tab PO DAILY 12/18/17 Reported Fluticasone Propionate Nasal Twilight (Fluticasone Propionate) 16 Gm Twilight.susp 1 Twilight NS DAILY 12/18/17 Reported [zoloft] 12/18/17 Reported [ativan] 12/18/17 Reported Impression . IMPRESSION: 1. Suspect myasthenia gravis. 2. Dysphagia secondary to above, status post Dobbhoff tube placement. 3. Mild dyspnea secondary to above. 4. History of Eze's thyroiditis. Plan . NIF IS GOOD -50 WILL CONTINUE THO MONITOR STARTED PLASMAPHORISIS D/W DR LEE IS WILL NEED DOBBHOFF PLACEMENT WITH AROLDO TATUM MD Dec 19, 2017 19:53
[2017-12-19] MEDS ORDERED: FAMOTIDINE 20 MG/2 ML VIAL IVP SCH (21:00)
[2017-12-19 21:19] VITALS: BP 138/81
[2017-12-19] MEDS: methylPREDNISolone SOD SUCC PF 40 MG/ML VIAL. IV SCH (21:34)
[2017-12-19] MEDS: PYRIDOSTIGMINE BROMIDE 10 MG/2 ML AMPUL. IV SCH (21:34)
[2017-12-19] MEDS: MORPHINE SULFATE 2 MG/ML VIAL. IV PRN (23:19)
[2017-12-19 23:30] VITALS: BP 145/70
[2017-12-20 03:09] VITALS: BP 155/92
[2017-12-20] MEDS: MORPHINE SULFATE 2 MG/ML VIAL. IV PRN ×4 (03:54→22:23)
[2017-12-20 07:00] VITALS: BP 130/90
[2017-12-20] MEDS ORDERED: AMINO AC 3%/ELECTROLYTE/GLYCER 1,000 ML IV SCH (09:30)
[2017-12-20] MEDS: FLUTICASONE 50MCG/NASAL SPRAY 16GM BOTTLE. NS SCH (09:40)
[2017-12-20] MEDS: PYRIDOSTIGMINE BROMIDE 10 MG/2 ML AMPUL. IV SCH ×2 (09:40→20:57)
[2017-12-20] MEDS: LEVOTHYROXINE SODIUM IVP SCH (09:41)
[2017-12-20] MEDS: NORMAL SALINE IVP SCH (09:41)
[2017-12-20] MEDS: methylPREDNISolone SOD SUCC PF 40 MG/ML VIAL. IV SCH ×2 (09:41→20:57)
--- NOTE | 2017-12-20 10:44 | PDOC ---
PROGRESS NOTES Assessment Problems Medical Problems: (1) Diplopia Status: Acute (2) Marijuana abuse Status: Acute (3) Myasthenia gravis with acute exacerbation Status: Acute (4) Neck muscle weakness Status: Acute (5) RUE weakness Status: Acute (6) Sinusitis Status: Acute Myasthenia gravis, improved with steroids and one plasmapheresis. She still has severe dysphagia, has great difficulty tolerating the Dobbhoff tube. Chest CT negative for thymoma Plan Await myasthenia serology. Speech therapy Respiratory therapy to monitor negative inspiratory force Pulmonary consultation appreciated Plasmapheresis QOD Change to IV steroids and pyridostigmine D/C Dobhoff, TPN Sopalamine is contraindicated in MG, I discontinued it. Please okay all new meds with me or pharmacy I have held off on brain MRI because patient is intolerant of lying flat I fully discussed with the patient, boyfriend, and her mother. Subjective Feels better, has trouble sleeping at night because of secretions, pain is better, wants to be pre- medicated for next plasma exchange. Is very phobic about the Dobhoff. I spoke to boyfriend who wants the patient treated at home but after discussion he understands that she must remain in the hospital Objective Vital Signs Date Time Temp Pulse Resp B/P (MAP) Pulse Ox O2 Delivery O2 Flow Rate FiO2 12/20/17 09:15 97 Room Air 12/20/17 07:00 97.9 111 20 130/90 (103) 97.9 Intake and Output 12/20/17 07:00 Intake Total 0 ml Balance 0 ml Intake Oral 0 ml # Voids 4 # Bowel Movements 1 PHYSICAL EXAM Alert. Oriented to time, place and person. PERRL. EOMI. CN: no focal findings. She still has subjective diplopia. Her voice is less hypernasal. Neck extension is improved, 4/5 Muscle tone: normal. Muscle strength: Right arm strength better, 5-/5, otherwise 5/5 DTR: 2+ Plantar reflex: Flexor Gait: not examined in bed. Sensory exam: no abnormal findings. No cerebellar signs elicited. Review of Relevant I have reviewed the following items maliha (where applicable) has been applied. Labs Laboratory Tests Test 12/18/17 13:55 12/19/17 04:25 Prothrombin Time 12.8 SEC (11.7-14.0) 12.9 SEC (11.7-14.0) Prothromb Time International Ratio 1.0 (0.8-1.1) 1.0 (0.8-1.1) White Blood Count 10.1 x10^3/uL (4.0-11.0) Red Blood Count 5.38 x10^6/uL (3.50-5.40) Hemoglobin 15.8 g/dL (12.0-15.5) Hematocrit 44.9 % (36.0-47.0) Mean Corpuscular Volume 83 fL (79-100) Mean Corpuscular Hemoglobin 29 pg (25-35) Mean Corpuscular Hemoglobin Concent 35 g/dL (31-37) Red Cell Distribution Width 12.4 % (11.5-14.5) Platelet Count 307 x10^3/uL (140-400) Activated Partial Thromboplast Time 30 SEC (24-38) Fibrinogen 385 mg/dL (200-440) Sodium Level 138 mmol/L (136-145) Potassium Level 4.1 mmol/L (3.5-5.1) Chloride Level 100 mmol/L (98-107) Carbon Dioxide Level 30 mmol/L (21-32) Anion Gap 8 (6-14) Blood Urea Nitrogen 10 mg/dL (7-20) Creatinine 0.7 mg/dL (0.6-1.0) Estimated GFR (Cockcroft-Gault) 103.7 Glucose Level 128 mg/dL (70-99) Calcium Level 9.1 mg/dL (8.5-10.1) Albumin 3.8 g/dL (3.4-5.0) Hepatitis B Surface Antigen Nonreactive (Nonreactive) Hepatitis B Surface Antibody Reactive Medications Current Medications Meclizine HCl (Antivert) 25 mg 1X ONCE PO Last administered on 12/17/17at 20:00 ; Start 12/17/17 at 20:00; Stop 12/17/17 at 20:01; Status DC Sodium Chloride 1,000 ml @ 1,000 mls/hr 1X ONCE IV Last administered on at 20:35; Start 12/17/17 at 20:15; Stop 12/17/17 at 21:14; Status DC Ketorolac Tromethamine (Toradol 15mg Vial) 15 mg 1X ONCE IV Last administered on 12/17/17at 20:36; Start 12/17/17 at 20:15; Stop 12/17/17 at 20:16; Status DC Diphenhydramine HCl (Benadryl) 25 mg 1X ONCE PO Last administered on at 02:16; Start 12/18/17 at 02:15; Stop 12/18/17 at 02:18; Status DC Acetaminophen (Tylenol) 500 mg PRN Q6HRS PRN PO MILD PAIN / TEMP; Start at 09:00 Acetaminophen/ Codeine Phosphate (Tylenol #3) 1 tab PRN Q6HRS PRN PO PAIN; Start 12/18/17 at 09:00; Stop 12/18/17 at 12:08; Status DC Ibuprofen (Motrin) 600 mg PRN Q6HRS PRN PO INFLAMMATION; Start 12/18/17 at 09: 00; Stop 12/19/17 at 16:23; Status DC Ondansetron HCl (Zofran) 4 mg PRN Q6HRS PRN IV NAUSEA/VOMITING Last administered on 12/19/17at 12:18; Start 12/18/17 at 09:00 Ondansetron HCl (Zofran Odt) 4 mg PRN Q6HRS PRN PO NAUSEA/VOMITING; Start 12/18 at 09:00; Stop 12/18/17 at 12:08; Status DC Fluticasone Propionate (Flonase) 1 spray DAILY NS Last administered on at 09:40; Start 12/18/17 at 09:00 Acetaminophen/ Hydrocodone Bitart (Lortab 7.5-325/ 15ml Oral Solution) 15 ml PRN Q4HRS PRN PO MODERATE PAIN; Start 12/18/17 at 09:00; Stop 12/19/17 at 16:23 ; Status DC Non-Formulary Medication (Albuterol Sulfate (Proair Hfa Inhaler)) 1 puff PRN Q6HRS PRN INH SHORTNESS OF BREATH; Start 12/18/17 at 09:00; Status UNV Amoxicillin (Amoxil) 750 mg BID PO Last administered on 12/18/17at 21:02; Start 12/18/17 at 10:00; Stop 12/19/17 at 16:23; Status DC Levothyroxine Sodium (Synthroid) 25 mcg DAILY07 PO ; Start 12/18/17 at 10:30; Stop 12/18/17 at 12:08; Status DC Prednisone (Prednisone) 50 mg DAILY PO ; Start 12/18/17 at 10:00; Stop 12/18/17 at 12:08; Status DC Alprazolam (Xanax) 0.25 mg PRN Q8HRS PRN PO ANXIETY / AGITATION; Start at 09:00; Stop 12/19/17 at 08:14; Status DC Zolpidem Tartrate (Ambien) 5 mg PRN QHS PRN PO INSOMNIA; Start 12/18/17 at 09: 00; Stop 12/18/17 at 12:08; Status DC Cetirizine HCl (ZyrTEC) 10 mg DAILY PO ; Start 12/18/17 at 10:00; Stop 12/18/17 at 12:08; Status DC Non-Formulary Medication 1 ea 1X ONCE IV ; Start 12/18/17 at 09:00; Stop at 09:01; Status UNV Potassium Chloride/Dextrose/ Sod Cl 1,000 ml @ 80 mls/hr [id number] IV Last administered on 12/19/17at 10:00; Start 12/18/17 at 09:00; Stop 12/20/17 at 09:07 ; Status DC Albuterol Sulfate (Ventolin Neb Soln) 2.5 mg PRN Q6HRS PRN NEB SHORTNESS OF BREATH Last administered on 12/18/17at 13:12; Start 12/18/17 at 09:30 Iohexol (Omnipaque 300 Mg/ml) 75 ml 1X ONCE IV Last administered on 12/18/17at 10:31; Start 12/18/17 at 10:15; Stop 12/18/17 at 10:16; Status DC Info (CONTRAST GIVEN -- Rx MONITORING) 1 each PRN DAILY PRN MC SEE COMMENTS; Start 12/18/17 at 10:15; Stop 12/20/17 at 10:14; Status DC Levothyroxine Sodium 15 mcg/ Sodium Chloride 5 ml @ 100 mls/hr DAILY IVP Last administered on 12/20/17at 09:41; Start 12/18/17 at 12:30 Lorazepam (Ativan) 1 mg PRN Q4HRS PRN IV ANXIETY / AGITATION Last administered on 12/20/17at 10:24; Start 12/18/17 at 13:15 Alprazolam (Xanax) 0.25 mg PRN Q8HRS PRN NG ANXIETY / AGITATION Last administered on 12/19/17at 01:13; Start 12/18/17 at 13:15; Stop 12/19/17 at 16:23 ; Status DC Pyridostigmine [place] (Mestinon) 60 mg BID NG Last administered on 12/18/17at 21:01; Start 12/18/17 at 13:00; Stop 12/19/17 at 16:23; Status DC Prednisone (Prednisone) 50 mg DAILY PO Last administered on 12/18/17at 16:03; Start 12/18/17 at 13:00; Stop 12/19/17 at 16:23; Status DC Famotidine (Pepcid) 20 mg QHS PO Last administered on 12/18/17at 21:01; Start at 21:00; Stop 12/19/17 at 16:23; Status DC Calcium Carbonate/ Glycine (Oscal) 500 mg TIDAFTMEAL PO ; Start 12/18/17 at 18: 00; Stop 12/19/17 at 16:23; Status DC Ergocalciferol (Vitamin D2) 50,000 unit MoTh PO ; Start 12/19/17 at 09:00; Stop 12/19/17 at 16:23; Status DC Lidocaine/Sodium Bicarbonate (Buffered Lidocaine 1%) 3 ml STK-MED ONCE .ROUTE ; Start 12/18/17 at 14:32; Stop 12/18/17 at 14:33; Status DC Heparin Sodium (Porcine) (Heparin Sodium) 10,000 unit STK-MED ONCE .ROUTE ; Start 12/18/17 at 14:32; Stop 12/18/17 at 14:33; Status DC Lidocaine/Sodium Bicarbonate (Buffered Lidocaine 1%) 3 ml 1X ONCE INJ Last administered on 12/18/17at 15:15; Start 12/18/17 at 15:15; Stop 12/18/17 at 15:16 ; Status DC Heparin Sodium (Porcine) (Heparin Sodium) 2,200 unit 1X ONCE INT CAT Last administered on 12/18/17at 15:15; Start 12/18/17 at 15:15; Stop 12/18/17 at 15:16 ; Status DC Scopolamine (Transderm-Scop) 1 patch 1X ONCE TD Last administered on at 21:41; Start 12/18/17 at 21:30; Stop 12/19/17 at 16:23; Status DC Albumin Human 1,500 ml @ 0 mls/hr 1X ONCE IV Last administered on 12/19/17at 11:38; Start 12/19/17 at 08:15; Stop 12/19/17 at 08:16; Status DC Heparin Sodium (Porcine) (Heparin Sodium) 10,000 unit STK-MED ONCE .ROUTE ; Start 12/19/17 at 08:40; Stop 12/19/17 at 08:41; Status DC Info (Tpn Per Pharmacy) 1 each PRN DAILY PRN MC SEE COMMENTS; Start 12/20/17 at 16:30 Pyridostigmine [place] (Regonol) 2.5 mg Q12HR IV Last administered on at 09:40; Start 12/19/17 at 21:00 Methylprednisolone Sodium Succinate (SOLU-Medrol 40MG VIAL) 40 mg Q12HR IV Last administered on 12/20/17at 09:41; Start 12/19/17 at 21:00 Famotidine (Pepcid Vial) 20 mg QHS IVP Last administered on 12/19/17at 21:33; Start 12/19/17 at 21:00 Morphine Sulfate (Morphine Sulfate) 2 mg PRN Q2HR PRN IV SEVERE PAIN Last administered on 12/20/17at 03:54; Start 12/19/17 at 23:15 Amino Acids/ Glycerin/ Electrolytes 1,000 ml @ 80 mls/hr [id number] IV Last administered on 12/20/17at 09:57; Start 12/20/17 at 09:30; Stop 12/20/17 at 21:59 Active Scripts Active Reported Amoxicillin 875 Mg Tablet 1 Tab PO BID Levothyroxine Sodium 25 Mcg Tablet 1 Tab PO DAILY Proair Hfa Inhaler (Albuterol Sulfate) 8.5 Gm Hfa.aer.ad 1 Puff INH PRN Q6HRS PRN [kaitlib fe] Hydrocodone-Apap 7.5-325/15 Soln (Hydrocodone Bit/Acetaminophen) 15 Ml Solution 15 Ml PO PRN Q4HRS PRN Prednisone 50 Mg Tablet 1 Tab PO DAILY Fluticasone Propionate Nasal [place] (Fluticasone Propionate) 16 Gm [place].susp 1 [place] NS DAILY [zoloft] [ativan] Vitals/I & O Vital Sign - Last 24 Hours 12/19/17 12/19/17 12/19/17 12/19/17 15:00 16:57 20:00 21:19 Temp 97.9 97.8 97.9 97.8 Pulse 134 132 128 Resp 16 22 24 B/P (MAP) 113/71 (85) 111/72 (85) 138/81 (100) Pulse Ox 97 99 97 O2 Delivery Room Air Room Air Room Air Room Air 12/19/17 12/19/17 12/20/17 12/20/17 23:19 23:30 03:09 03:54 Temp 97.5 97.7 97.5 97.7 Pulse 103 99 Resp 20 20 B/P (MAP) 145/70 (95) 155/92 (113) Pulse Ox 98 96 O2 Delivery Room Air Room Air Room Air Room Air 12/20/17 12/20/17 12/20/17 04:24 07:00 09:15 Temp 97.9 97.9 Pulse 111 Resp 20 B/P (MAP) 130/90 (103) Pulse Ox 97 97 O2 Delivery Room Air Room Air Room Air Intake and Output 12/19/17 12/19/17 12/20/17 15:00 23:00 07:00 Intake Total 0 ml Balance 0 ml GAURAV BARONE MD Dec 20, 2017 10:44
[2017-12-20 11:00] VITALS: BP_SYST 164; BP_SYST 174; BP_DIAS 118
[2017-12-20] MEDS ORDERED: ALTEPLASE 2 MG VIAL IV ONE (11:45)
[2017-12-20] MEDS ORDERED: CYCLOBENZAPRINE 10 MG TABLET. PO ONE (11:45)
--- NOTE | 2017-12-20 11:48 | PDOC ---
PROGRESS NOTES Chief Complaint Chief Complaint myasthenia gravis - new diagnosis Diplopia Dysphagia Stiff neck History of Present Illness History of Present Illness status post 1 session of plasmapheresis-has an indwelling right catheter Still stiff neck, still diplopia, still right side hand weak Had some issues with Dobbhoff kept on coiling hence now PICC line on the left and TPN ordered She is able to spit up her secretions-doing well with NIF Does admit to increasing weakness or fatigability upon repetitive motion which is consistent with myasthenia gravis Plan: pyridostigmine and IV steroids started Plasmapheresis per renal/neurology-claims will get 5 doses every other day hence will be here for a while (10 days? at least) Trial of Flexeril for the neck spasm Thyroid is IV because of swallow issues-still nothing by mouth DTRs are +2 IV Pepcid since swallow issues and is nothing by mouth TPN to start today Discussed with her Vitals Vitals Vital Signs Date Time Temp Pulse Resp B/P (MAP) Pulse Ox O2 Delivery O2 Flow Rate FiO2 12/20/17 11:00 97.9 112 20 174/118 (136) 98 Room Air 97.9 164/118 (133) Physical Exam General: Alert, Oriented X3, Cooperative, No acute distress Heart: Regular rate, Normal S1, Normal S2 Lungs: Clear Abdomen: Normal bowel sounds, Soft, No tenderness, No hepatosplenomegaly, No masses Extremities: No clubbing, No cyanosis Skin: No rashes, No breakdown, No significant lesion, Other (lipoma at the nape ) Review of Systems Review of Systems As per history of present illness, the rest of ROS 14 point negative Assessment and Plan Assessmemt and Plan Problems Medical Problems: (1) Diplopia Status: Acute (2) Marijuana abuse Status: Acute (3) Myasthenia gravis with acute exacerbation Status: Acute (4) Neck muscle weakness Status: Acute (5) RUE weakness Status: Acute (6) Sinusitis Status: Acute Comment Review of Relevant I have reviewed the following items maliha (where applicable) has been applied. Labs Laboratory Tests Test 12/18/17 13:55 12/19/17 04:25 Prothrombin Time 12.8 SEC (11.7-14.0) 12.9 SEC (11.7-14.0) Prothromb Time International Ratio 1.0 (0.8-1.1) 1.0 (0.8-1.1) White Blood Count 10.1 x10^3/uL (4.0-11.0) Red Blood Count 5.38 x10^6/uL (3.50-5.40) Hemoglobin 15.8 g/dL (12.0-15.5) Hematocrit 44.9 % (36.0-47.0) Mean Corpuscular Volume 83 fL (79-100) Mean Corpuscular Hemoglobin 29 pg (25-35) Mean Corpuscular Hemoglobin Concent 35 g/dL (31-37) Red Cell Distribution Width 12.4 % (11.5-14.5) Platelet Count 307 x10^3/uL (140-400) Activated Partial Thromboplast Time 30 SEC (24-38) Fibrinogen 385 mg/dL (200-440) Sodium Level 138 mmol/L (136-145) Potassium Level 4.1 mmol/L (3.5-5.1) Chloride Level 100 mmol/L (98-107) Carbon Dioxide Level 30 mmol/L (21-32) Anion Gap 8 (6-14) Blood Urea Nitrogen 10 mg/dL (7-20) Creatinine 0.7 mg/dL (0.6-1.0) Estimated GFR (Cockcroft-Gault) 103.7 Glucose Level 128 mg/dL (70-99) Calcium Level 9.1 mg/dL (8.5-10.1) Albumin 3.8 g/dL (3.4-5.0) Hepatitis B Surface Antigen Nonreactive (Nonreactive) Hepatitis B Surface Antibody Reactive Medications Current Medications Meclizine HCl (Antivert) 25 mg 1X ONCE PO Last administered on 12/17/17at 20:00 ; Start 12/17/17 at 20:00; Stop 12/17/17 at 20:01; Status DC Sodium Chloride 1,000 ml @ 1,000 mls/hr 1X ONCE IV Last administered on at 20:35; Start 12/17/17 at 20:15; Stop 12/17/17 at 21:14; Status DC Ketorolac Tromethamine (Toradol 15mg Vial) 15 mg 1X ONCE IV Last administered on 12/17/17at 20:36; Start 12/17/17 at 20:15; Stop 12/17/17 at 20:16; Status DC Diphenhydramine HCl (Benadryl) 25 mg 1X ONCE PO Last administered on at 02:16; Start 12/18/17 at 02:15; Stop 12/18/17 at 02:18; Status DC Acetaminophen (Tylenol) 500 mg PRN Q6HRS PRN PO MILD PAIN / TEMP; Start at 09:00 Acetaminophen/ Codeine Phosphate (Tylenol #3) 1 tab PRN Q6HRS PRN PO PAIN; Start 12/18/17 at 09:00; Stop 12/18/17 at 12:08; Status DC Ibuprofen (Motrin) 600 mg PRN Q6HRS PRN PO INFLAMMATION; Start 12/18/17 at 09: 00; Stop 12/19/17 at 16:23; Status DC Ondansetron HCl (Zofran) 4 mg PRN Q6HRS PRN IV NAUSEA/VOMITING Last administered on 12/19/17at 12:18; Start 12/18/17 at 09:00 Ondansetron HCl (Zofran Odt) 4 mg PRN Q6HRS PRN PO NAUSEA/VOMITING; Start 12/18 at 09:00; Stop 12/18/17 at 12:08; Status DC Fluticasone Propionate (Flonase) 1 spray DAILY NS Last administered on at 09:40; Start 12/18/17 at 09:00 Acetaminophen/ Hydrocodone Bitart (Lortab 7.5-325/ 15ml Oral Solution) 15 ml PRN Q4HRS PRN PO MODERATE PAIN; Start 12/18/17 at 09:00; Stop 12/19/17 at 16:23 ; Status DC Non-Formulary Medication (Albuterol Sulfate (Proair Hfa Inhaler)) 1 puff PRN Q6HRS PRN INH SHORTNESS OF BREATH; Start 12/18/17 at 09:00; Status UNV Amoxicillin (Amoxil) 750 mg BID PO Last administered on 12/18/17at 21:02; Start 12/18/17 at 10:00; Stop 12/19/17 at 16:23; Status DC Levothyroxine Sodium (Synthroid) 25 mcg DAILY07 PO ; Start 12/18/17 at 10:30; Stop 12/18/17 at 12:08; Status DC Prednisone (Prednisone) 50 mg DAILY PO ; Start 12/18/17 at 10:00; Stop 12/18/17 at 12:08; Status DC Alprazolam (Xanax) 0.25 mg PRN Q8HRS PRN PO ANXIETY / AGITATION; Start at 09:00; Stop 12/19/17 at 08:14; Status DC Zolpidem Tartrate (Ambien) 5 mg PRN QHS PRN PO INSOMNIA; Start 12/18/17 at 09: 00; Stop 12/18/17 at 12:08; Status DC Cetirizine HCl (ZyrTEC) 10 mg DAILY PO ; Start 12/18/17 at 10:00; Stop 12/18/17 at 12:08; Status DC Non-Formulary Medication 1 ea 1X ONCE IV ; Start 12/18/17 at 09:00; Stop at 09:01; Status UNV Potassium Chloride/Dextrose/ Sod Cl 1,000 ml @ 80 mls/hr [id number] IV Last administered on 12/19/17at 10:00; Start 12/18/17 at 09:00; Stop 12/20/17 at 09:07 ; Status DC Albuterol Sulfate (Ventolin Neb Soln) 2.5 mg PRN Q6HRS PRN NEB SHORTNESS OF BREATH Last administered on 12/18/17at 13:12; Start 12/18/17 at 09:30 Iohexol (Omnipaque 300 Mg/ml) 75 ml 1X ONCE IV Last administered on 12/18/17at 10:31; Start 12/18/17 at 10:15; Stop 12/18/17 at 10:16; Status DC Info (CONTRAST GIVEN -- Rx MONITORING) 1 each PRN DAILY PRN MC SEE COMMENTS; Start 12/18/17 at 10:15; Stop 12/20/17 at 10:14; Status DC Levothyroxine Sodium 15 mcg/ Sodium Chloride 5 ml @ 100 mls/hr DAILY IVP Last administered on 12/20/17at 09:41; Start 12/18/17 at 12:30; Stop 12/20/17 at 11:44 ; Status DC Lorazepam (Ativan) 1 mg PRN Q4HRS PRN IV ANXIETY / AGITATION Last administered on 12/20/17at 10:24; Start 12/18/17 at 13:15 Alprazolam (Xanax) 0.25 mg PRN Q8HRS PRN NG ANXIETY / AGITATION Last administered on 12/19/17at 01:13; Start 12/18/17 at 13:15; Stop 12/19/17 at 16:23 ; Status DC Pyridostigmine [place] (Mestinon) 60 mg BID NG Last administered on 12/18/17at 21:01; Start 12/18/17 at 13:00; Stop 12/19/17 at 16:23; Status DC Prednisone (Prednisone) 50 mg DAILY PO Last administered on 12/18/17at 16:03; Start 12/18/17 at 13:00; Stop 12/19/17 at 16:23; Status DC Famotidine (Pepcid) 20 mg QHS PO Last administered on 12/18/17at 21:01; Start at 21:00; Stop 12/19/17 at 16:23; Status DC Calcium Carbonate/ Glycine (Oscal) 500 mg TIDAFTMEAL PO ; Start 12/18/17 at 18: 00; Stop 12/19/17 at 16:23; Status DC Ergocalciferol (Vitamin D2) 50,000 unit MoTh PO ; Start 12/19/17 at 09:00; Stop 12/19/17 at 16:23; Status DC Lidocaine/Sodium Bicarbonate (Buffered Lidocaine 1%) 3 ml STK-MED ONCE .ROUTE ; Start 12/18/17 at 14:32; Stop 12/18/17 at 14:33; Status DC Heparin Sodium (Porcine) (Heparin Sodium) 10,000 unit STK-MED ONCE .ROUTE ; Start 12/18/17 at 14:32; Stop 12/18/17 at 14:33; Status DC Lidocaine/Sodium Bicarbonate (Buffered Lidocaine 1%) 3 ml 1X ONCE INJ Last administered on 12/18/17at 15:15; Start 12/18/17 at 15:15; Stop 12/18/17 at 15:16 ; Status DC Heparin Sodium (Porcine) (Heparin Sodium) 2,200 unit 1X ONCE INT CAT Last administered on 12/18/17at 15:15; Start 12/18/17 at 15:15; Stop 12/18/17 at 15:16 ; Status DC Scopolamine (Transderm-Scop) 1 patch 1X ONCE TD Last administered on at 21:41; Start 12/18/17 at 21:30; Stop 12/19/17 at 16:23; Status DC Albumin Human 1,500 ml @ 0 mls/hr 1X ONCE IV Last administered on 12/19/17at 11:38; Start 12/19/17 at 08:15; Stop 12/19/17 at 08:16; Status DC Heparin Sodium (Porcine) (Heparin Sodium) 10,000 unit STK-MED ONCE .ROUTE ; Start 12/19/17 at 08:40; Stop 12/19/17 at 08:41; Status DC Info (Tpn Per Pharmacy) 1 each PRN DAILY PRN MC SEE COMMENTS; Start 12/20/17 at 16:30 Pyridostigmine [place] (Regonol) 2.5 mg Q12HR IV Last administered on at 09:40; Start 12/19/17 at 21:00 Methylprednisolone Sodium Succinate (SOLU-Medrol 40MG VIAL) 40 mg Q12HR IV Last administered on 12/20/17at 09:41; Start 12/19/17 at 21:00 Famotidine (Pepcid Vial) 20 mg QHS IVP Last administered on 12/19/17at 21:33; Start 12/19/17 at 21:00; Stop 12/20/17 at 11:44; Status DC Morphine Sulfate (Morphine Sulfate) 2 mg PRN Q2HR PRN IV SEVERE PAIN Last administered on 12/20/17at 03:54; Start 12/19/17 at 23:15 Amino Acids/ Glycerin/ Electrolytes 1,000 ml @ 80 mls/hr [id number] IV Last administered on 12/20/17at 09:57; Start 12/20/17 at 09:30; Stop 12/20/17 at 11:44 ; Status DC Alteplase, Recombinant (Cathflo) 2 mg 1X ONCE IV ; Start 12/20/17 at 11:45; Stop 12/20/17 at 11:46 Cyclobenzaprine HCl (Flexeril) 5 mg QID PO ; Start 12/20/17 at 13:00; Status UNV Cyclobenzaprine HCl (Flexeril) 10 mg 1X ONCE PO ; Start 12/20/17 at 11:45; Stop 12/20/17 at 11:46; Status UNV Levothyroxine Sodium (Synthroid) 25 mcg DAILY07 PO ; Start 12/21/17 at 07:00; Status UNV Active Scripts Active Reported Amoxicillin 875 Mg Tablet 1 Tab PO BID Levothyroxine Sodium 25 Mcg Tablet 1 Tab PO DAILY Proair Hfa Inhaler (Albuterol Sulfate) 8.5 Gm Hfa.aer.ad 1 Puff INH PRN Q6HRS PRN [kaitlib fe] Hydrocodone-Apap 7.5-325/15 Soln (Hydrocodone Bit/Acetaminophen) 15 Ml Solution 15 Ml PO PRN Q4HRS PRN Prednisone 50 Mg Tablet 1 Tab PO DAILY Fluticasone Propionate Nasal [place] (Fluticasone Propionate) 16 Gm [place].susp 1 [place] NS DAILY [zoloft] [ativan] Vitals/I & O Vital Sign - Last 24 Hours 12/19/17 12/19/17 12/19/17 12/19/17 15:00 16:57 20:00 21:19 Temp 97.9 97.8 97.9 97.8 Pulse 134 132 128 Resp 16 22 24 B/P (MAP) 113/71 (85) 111/72 (85) 138/81 (100) Pulse Ox 97 99 97 O2 Delivery Room Air Room Air Room Air Room Air 12/19/17 12/19/17 12/20/17 12/20/17 23:19 23:30 03:09 03:54 Temp 97.5 97.7 97.5 97.7 Pulse 103 99 Resp 20 20 B/P (MAP) 145/70 (95) 155/92 (113) Pulse Ox 98 96 O2 Delivery Room Air Room Air Room Air Room Air 12/20/17 12/20/17 12/20/17 12/20/17 04:24 07:00 09:15 11:00 Temp 97.9 97.9 97.9 97.9 Pulse 111 112 Resp 20 20 B/P (MAP) 130/90 (103) 174/118 (136) 164/118 (133) Pulse Ox 97 97 98 O2 Delivery Room Air Room Air Room Air Room Air Intake and Output 12/19/17 12/19/17 12/20/17 15:00 23:00 07:00 Intake Total 0 ml Balance 0 ml YVETTE CHAIREZ MD Dec 20, 2017 11:48
[2017-12-20 12:03] LABS: CALCIUM 9.5 mg/dL (8.5-10.1); CREATININE 0.5 mg/dL (0.6-1.0); GFR 152.9; POTASSIUM 4.7 mmol/L (3.5-5.1)
[2017-12-20] MEDS: TPN PER PHARMACY MC PRN ×2 (13:15→13:30)
[2017-12-20 13:58] LABS: HEMATOCRIT 48.2 % (36.0-47.0); HEMOGLOBIN 16.4 g/dL (12.0-15.5); RED BLOOD COUNT 5.72 x10^6/uL (3.50-5.40); RED CELL DISTRIBUTION WIDTH 12.8 % (11.5-14.5); WHITE BLOOD COUNT 15.2 x10^3/uL (4.0-11.0)
[2017-12-20] MEDS: ONDANSETRON PF 4 MG/2 ML VIAL. IV PRN (14:18)
[2017-12-20 15:00] VITALS: BP 160/101
--- NOTE | 2017-12-20 15:24 | PDOC ---
PULMONARY PROGRESS NOTES Subjective PT NOT WORSE NO INCREASE SOA COUGH IS WEAK Vitals Vital Signs Date Time Temp Pulse Resp B/P (MAP) Pulse Ox O2 Delivery O2 Flow Rate FiO2 12/20/17 14:18 Room Air 12/20/17 13:52 98 12/20/17 11:00 97.9 112 20 174/118 (136) 97.9 164/118 (133) ROS: No Nausea, No Chest Pain, No Abdominal Pain, No Increase Cough Lungs: Clear Cardiovascular: S1 Abdomen: Soft Neuro Exam: Alert Extremities: No Edema Skin: Warm Labs Laboratory Tests Test 12/19/17 04:25 12/20/17 09:00 12/20/17 13:30 White Blood Count 10.1 x10^3/uL (4.0-11.0) 15.2 x10^3/uL (4.0-11.0) Red Blood Count 5.38 x10^6/uL (3.50-5.40) 5.72 x10^6/uL (3.50-5.40) Hemoglobin 15.8 g/dL (12.0-15.5) 16.4 g/dL (12.0-15.5) Hematocrit 44.9 % (36.0-47.0) 48.2 % (36.0-47.0) Mean Corpuscular Volume 83 fL (79-100) 84 fL (79-100) Mean Corpuscular Hemoglobin 29 pg (25-35) 29 pg (25-35) Mean Corpuscular Hemoglobin Concent 35 g/dL (31-37) 34 g/dL (31-37) Red Cell Distribution Width 12.4 % (11.5-14.5) 12.8 % (11.5-14.5) Platelet Count 307 x10^3/uL (140-400) 62 x10^3/uL (140-400) Prothrombin Time 12.9 SEC (11.7-14.0) 16.0 SEC (11.7-14.0) Prothromb Time International Ratio 1.0 (0.8-1.1) 1.3 (0.8-1.1) Activated Partial Thromboplast Time 30 SEC (24-38) 24 SEC (24-38) Fibrinogen 385 mg/dL (200-440) 83 mg/dL (200-440) Sodium Level 138 mmol/L (136-145) 140 mmol/L (136-145) Potassium Level 4.1 mmol/L (3.5-5.1) 4.7 mmol/L (3.5-5.1) Chloride Level 100 mmol/L (98-107) 102 mmol/L (98-107) Carbon Dioxide Level 30 mmol/L (21-32) 27 mmol/L (21-32) Anion Gap 8 (6-14) 11 (6-14) Blood Urea Nitrogen 10 mg/dL (7-20) 10 mg/dL (7-20) Creatinine 0.7 mg/dL (0.6-1.0) 0.5 mg/dL (0.6-1.0) Estimated GFR (Cockcroft-Gault) 103.7 152.9 Glucose Level 128 mg/dL (70-99) 101 mg/dL (70-99) Calcium Level 9.1 mg/dL (8.5-10.1) 9.5 mg/dL (8.5-10.1) Albumin 3.8 g/dL (3.4-5.0) Hepatitis B Surface Antigen Nonreactive (Nonreactive) Hepatitis B Surface Antibody Reactive Magnesium Level 2.5 mg/dL (1.8-2.4) Laboratory Tests Test 12/20/17 09:00 12/20/17 13:30 Sodium Level 140 mmol/L (136-145) Potassium Level 4.7 mmol/L (3.5-5.1) Chloride Level 102 mmol/L (98-107) Carbon Dioxide Level 27 mmol/L (21-32) Anion Gap 11 (6-14) Blood Urea Nitrogen 10 mg/dL (7-20) Creatinine 0.5 mg/dL (0.6-1.0) Estimated GFR (Cockcroft-Gault) 152.9 Glucose Level 101 mg/dL (70-99) Calcium Level 9.5 mg/dL (8.5-10.1) Magnesium Level 2.5 mg/dL (1.8-2.4) White Blood Count 15.2 x10^3/uL (4.0-11.0) Red Blood Count 5.72 x10^6/uL (3.50-5.40) Hemoglobin 16.4 g/dL (12.0-15.5) Hematocrit 48.2 % (36.0-47.0) Mean Corpuscular Volume 84 fL (79-100) Mean Corpuscular Hemoglobin 29 pg (25-35) Mean Corpuscular Hemoglobin Concent 34 g/dL (31-37) Red Cell Distribution Width 12.8 % (11.5-14.5) Platelet Count 62 x10^3/uL (140-400) Prothrombin Time 16.0 SEC (11.7-14.0) Prothromb Time International Ratio 1.3 (0.8-1.1) Activated Partial Thromboplast Time 24 SEC (24-38) Fibrinogen 83 mg/dL (200-440) Medications Active Scripts Medications Dose Route/Sig Max Daily Dose Days Date Category Amoxicillin 875 Mg Tablet 1 Tab PO BID 12/18/17 Reported Levothyroxine Sodium 25 Mcg Tablet 1 Tab PO DAILY 12/18/17 Reported Proair Hfa Inhaler (Albuterol Sulfate) 8.5 Gm Hfa.aer.ad 1 Puff INH PRN Q6HRS PRN 12/18/17 Reported [kaitlib fe] 12/18/17 Reported Hydrocodone-Apap 7.5-325/15 Soln (Hydrocodone Bit/Acetaminophen) 15 Ml Solution 15 Ml PO PRN Q4HRS PRN 12/18/17 Reported Prednisone 50 Mg Tablet 1 Tab PO DAILY 12/18/17 Reported Fluticasone Propionate Nasal [place] (Fluticasone Propionate) 16 Gm [place].susp 1 [place] NS DAILY 12/18/17 Reported [zoloft] 12/18/17 Reported [ativan] 12/18/17 Reported Impression . IMPRESSION: 1. Suspect myasthenia gravis. 2. Dysphagia secondary to above, status post Dobbhoff tube placement, came out 3. Mild dyspnea secondary to above. 4. History of Eze's thyroiditis. Plan . I WENT OVER RISK AND BENEFIT OF TPN AND DOBBHOFF PLACEMENT WITH PT, RECOMMENDED DOBBHOFF PATIENT AGREED D/W MOTHER SHE DOES NOT WANT DOBBHOFF, ADAMANT WHY SHE DOES NOT WANT IT, MOTHER DOES NOT WANT HER DAUGHTER SUFFERING, MOTHER UPSET WITH ME, I TRIED TO CLAM HER DOWN AND ANSWERED ALL QUESTIONS, I DID EMPHASIZE THAT WE GIVE OPTIONS AND HAVE PATIENT MAKE INFORMED CONSENT, I SPOKE WITH RADIOLOGIST AND D/C ORDER D/W DR DUGGAN NIF IS GOOD -50 WILL CONTINUE THO MONITOR PLASMAPHERESIS PER NEPHRO IS RESP STATUS IS COMPENSATED NIF TODAY IS BETTER -90 I WILL SEE HER NEEDED AROLDO NAZARIO MD Dec 20, 2017 15:24
[2017-12-20] MEDS: CYCLOBENZAPRINE 10 MG TABLET. PO SCH ×2 (17:00→20:13)
--- NOTE | 2017-12-20 19:27 | RAD ---
Examination: NG TUBE INSERTION W/ FLUORO History: ng tube placement
flouro time .5 Comparison/Correlation: None Findings: Fluoroscopy was utilized for 0.5 minutes. Dobbhoff tube was placed within the right nasal passageway with the use of K-Y jelly. The Dobbhoff tube and its associated Savitt terminates within the expected site of the proximal duodenum. After placement of the Dobbhoff tube, the patient's mother requested that the Dobbhoff tube be removed and as result it was. Impression: Successful placement and removal of Dobbhoff tube. Electronically signed by: Feliz Hutchinson MD (12/20/2017 7:23 PM) [facility]
[2017-12-20 19:44] VITALS: BP 134/84
[2017-12-20] MEDS ORDERED: AMINO ACIDS IV SCH ×10 (22:00)
[2017-12-20] MEDS ORDERED: TOTAL PARENTERAL NUTRITION IV SCH ×10 (22:00)
[2017-12-20] MEDS ORDERED: DEXTROSE 70% IV SCH ×10 (22:00)
[2017-12-20] MEDS ORDERED: [UNRECOGNIZED DRUG - OTHER] IV SCH ×10 (22:00)
[2017-12-20 23:00] VITALS: BP 157/92
[2017-12-21] MEDS: MORPHINE SULFATE 2 MG/ML VIAL. IV PRN ×3 (03:28→10:43)
[2017-12-21 03:40] VITALS: BP 156/92
[2017-12-21 03:55] LABS: PROTHROMBIN TIME PATIENT 14.1 SEC (11.7-14.0)
[2017-12-21 03:56] LABS: HEMATOCRIT 47.8 % (36.0-47.0); HEMOGLOBIN 16.1 g/dL (12.0-15.5); RED BLOOD COUNT 5.54 x10^6/uL (3.50-5.40); RED CELL DISTRIBUTION WIDTH 12.8 % (11.5-14.5); WHITE BLOOD COUNT 19.2 x10^3/uL (4.0-11.0)
[2017-12-21 03:58] LABS: ALBUMIN 3.8 g/dL (3.4-5.0); CREATININE 0.6 mg/dL (0.6-1.0); GFR 123.9; MAGNESIUM 2.5 mg/dL (1.8-2.4); POTASSIUM 4.7 mmol/L (3.5-5.1)
[2017-12-21] MEDS ORDERED: LEVOTHYROXINE 25 MCG TABLET. PO SCH (07:00)
[2017-12-21 07:29] VITALS: BP 141/81
[2017-12-21] MEDS ORDERED: ALBUMIN HUMAN 5% IV ONE (08:45)
[2017-12-21] MEDS: CYCLOBENZAPRINE 10 MG TABLET. PO SCH ×4 (09:10→19:54)
[2017-12-21] MEDS ORDERED: diphenhydrAMINE 50 MG/ML VIAL ONE (11:46)
[2017-12-21] MEDS ORDERED: diphenhydrAMINE 50 MG/ML VIAL IVP ONE (12:00)
[2017-12-21] MEDS: ONDANSETRON PF 4 MG/2 ML VIAL. IV PRN (12:04)
[2017-12-21] MEDS: TPN PER PHARMACY MC PRN ×2 (12:34→12:37)
[2017-12-21] MEDS: FLUTICASONE 50MCG/NASAL SPRAY 16GM BOTTLE. NS SCH (12:52)
[2017-12-21] MEDS: methylPREDNISolone SOD SUCC PF 40 MG/ML VIAL. IV SCH (12:58)
[2017-12-21] MEDS: NORMAL SALINE IVP SCH (13:00)
[2017-12-21] MEDS: LEVOTHYROXINE SODIUM IVP SCH (13:00)
[2017-12-21] MEDS: PYRIDOSTIGMINE BROMIDE 10 MG/2 ML AMPUL. IV SCH (13:07)
--- NOTE | 2017-12-21 13:47 | PDOC ---
Renal-Progress Notes Subjective Notes Notes FEELING A BIT STRONGER History of Present Illness Hx of present illness STABLE Vitals Vitals Vital Signs Date Time Temp Pulse Resp B/P (MAP) Pulse Ox O2 Delivery O2 Flow Rate FiO2 12/21/17 13:34 96 Room Air 12/21/17 10:43 19 12/21/17 07:29 97.9 100 141/81 (101) 97.9 Weight Weight [ ] I.O. Intake and Output Intake and Output 12/21/17 07:00 Intake Total 0 ml Balance 0 ml Intake Oral 0 ml # Voids 4 Labs Labs Laboratory Tests Test 12/21/17 03:30 White Blood Count 19.2 x10^3/uL (4.0-11.0) Red Blood Count 5.54 x10^6/uL (3.50-5.40) Hemoglobin 16.1 g/dL (12.0-15.5) Hematocrit 47.8 % (36.0-47.0) Mean Corpuscular Volume 86 fL (79-100) Mean Corpuscular Hemoglobin 29 pg (25-35) Mean Corpuscular Hemoglobin Concent 34 g/dL (31-37) Red Cell Distribution Width 12.8 % (11.5-14.5) Platelet Count 173 x10^3/uL (140-400) Prothrombin Time 14.1 SEC (11.7-14.0) Prothromb Time International Ratio 1.1 (0.8-1.1) Activated Partial Thromboplast Time 25 SEC (24-38) Fibrinogen 188 mg/dL (200-440) Sodium Level 138 mmol/L (136-145) Potassium Level 4.7 mmol/L (3.5-5.1) Chloride Level 102 mmol/L (98-107) Carbon Dioxide Level 27 mmol/L (21-32) Anion Gap 9 (6-14) Blood Urea Nitrogen 14 mg/dL (7-20) Creatinine 0.6 mg/dL (0.6-1.0) Estimated GFR (Cockcroft-Gault) 123.9 Glucose Level 242 mg/dL (70-99) Calcium Level 9.0 mg/dL (8.5-10.1) Phosphorus Level 3.5 mg/dL (2.6-4.7) Magnesium Level 2.5 mg/dL (1.8-2.4) Albumin 3.8 g/dL (3.4-5.0) Review of Systems Constitutional: yes: weakness, alert, oriented Ears/Nose/Throat: Yes: no symptom reported Eyes: Yes: no symptom reported Pulmonary: Yes no symptom reported Cardiovascular: Yes no symptom reported Genitourinary: Yes: no symptom reported Musculoskeletal: Yes: no symptom reported, other (GENERALIZED WEAKNESS) Psychiatric/Neurological: Yes: tingling, weakness Endocrine: Yes: no symptom reported Hematologic/Lymphatic: Yes: no symptom reported Physical Exam General Appearance: no apparent distress Skin: warm Respiratory: bilateral CTA Heart: S1S2, RRR Abdomen: soft, bowel sounds present Genitourinary: bladder flat Extremities: pulses present, no edema, atrophy Neurology: alert, oriented, follow commands, Ext weakness Assessment Assessment IMP M GRAVIS PLAN TPE # 2 TODAY PLASMA VOLUME REPLACED WITH SALINE/FFP DUE TO LOW FIBRINOGEN COUNT HAD SOME TINGLING OF FINGER TIP AND SKIN RASH AT THE END OF TX BOTH RESOLVED WITH BENADRYL NEX TPE NOT PLANNED TILL SATURDAY RICHARDSON FORD MD Dec 21, 2017 13:47
[2017-12-21 15:02] VITALS: BP 152/94
--- NOTE | 2017-12-21 16:51 | PDOC ---
PROGRESS NOTES Chief Complaint Chief Complaint myasthenia gravis - new diagnosis Diplopia Dysphagia Stiff neck History of Present Illness History of Present Illness pleasant but sleepy today , has started plasmapheresis-has an indwelling right subclavian catheter Still stiff neck, still diplopia, still right side hand weak Had some issues with Dobbhoff kept on coiling hence now PICC line on the left and TPN ordered She is able to spit up her secretions-doing well with NIF Does admit to increasing weakness or fatigability upon repetitive motion which is consistent with myasthenia gravis Plan: pyridostigmine and IV steroids started Plasmapheresis per renal/neurology-claims will get 5 doses every other day hence will be here for a while (10 days? at least) Trial of Flexeril for the neck spasm Thyroid is IV because of swallow issues-still nothing by mouth DTRs are +2 IV Pepcid since swallow issues and is nothing by mouth TPN to start today Discussed in detail Vitals Vitals Vital Signs Date Time Temp Pulse Resp B/P (MAP) Pulse Ox O2 Delivery O2 Flow Rate FiO2 12/21/17 15:02 97.5 111 17 152/94 (113) 97 Room Air 97.5 Physical Exam General: Alert, Oriented X3, Cooperative, No acute distress Heart: Regular rate, Normal S1, Normal S2 Lungs: Clear Abdomen: Normal bowel sounds, Soft, No tenderness, No hepatosplenomegaly, No masses Extremities: No clubbing, No cyanosis Skin: No rashes, No breakdown, No significant lesion, Other (lipoma at the nape ) Labs LABS Laboratory Tests Test 12/21/17 03:30 White Blood Count 19.2 x10^3/uL (4.0-11.0) Red Blood Count 5.54 x10^6/uL (3.50-5.40) Hemoglobin 16.1 g/dL (12.0-15.5) Hematocrit 47.8 % (36.0-47.0) Mean Corpuscular Volume 86 fL (79-100) Mean Corpuscular Hemoglobin 29 pg (25-35) Mean Corpuscular Hemoglobin Concent 34 g/dL (31-37) Red Cell Distribution Width 12.8 % (11.5-14.5) Platelet Count 173 x10^3/uL (140-400) Prothrombin Time 14.1 SEC (11.7-14.0) Prothromb Time International Ratio 1.1 (0.8-1.1) Activated Partial Thromboplast Time 25 SEC (24-38) Fibrinogen 188 mg/dL (200-440) Sodium Level 138 mmol/L (136-145) Potassium Level 4.7 mmol/L (3.5-5.1) Chloride Level 102 mmol/L (98-107) Carbon Dioxide Level 27 mmol/L (21-32) Anion Gap 9 (6-14) Blood Urea Nitrogen 14 mg/dL (7-20) Creatinine 0.6 mg/dL (0.6-1.0) Estimated GFR (Cockcroft-Gault) 123.9 Glucose Level 242 mg/dL (70-99) Calcium Level 9.0 mg/dL (8.5-10.1) Phosphorus Level 3.5 mg/dL (2.6-4.7) Magnesium Level 2.5 mg/dL (1.8-2.4) Albumin 3.8 g/dL (3.4-5.0) Assessment and Plan Assessmemt and Plan Problems Medical Problems: (1) Diplopia Status: Acute (2) Marijuana abuse Status: Acute (3) Myasthenia gravis with acute exacerbation Status: Acute (4) Neck muscle weakness Status: Acute (5) RUE weakness Status: Acute (6) Sinusitis Status: Acute Comment Review of Relevant I have reviewed the following items maliha (where applicable) has been applied. Labs Laboratory Tests Test 12/20/17 09:00 12/20/17 13:30 12/21/17 03:30 Sodium Level 140 mmol/L (136-145) 138 mmol/L (136-145) Potassium Level 4.7 mmol/L (3.5-5.1) 4.7 mmol/L (3.5-5.1) Chloride Level 102 mmol/L (98-107) 102 mmol/L (98-107) Carbon Dioxide Level 27 mmol/L (21-32) 27 mmol/L (21-32) Anion Gap 11 (6-14) 9 (6-14) Blood Urea Nitrogen 10 mg/dL (7-20) 14 mg/dL (7-20) Creatinine 0.5 mg/dL (0.6-1.0) 0.6 mg/dL (0.6-1.0) Estimated GFR (Cockcroft-Gault) 152.9 123.9 Glucose Level 101 mg/dL (70-99) 242 mg/dL (70-99) Calcium Level 9.5 mg/dL (8.5-10.1) 9.0 mg/dL (8.5-10.1) Magnesium Level 2.5 mg/dL (1.8-2.4) 2.5 mg/dL (1.8-2.4) White Blood Count 15.2 x10^3/uL (4.0-11.0) 19.2 x10^3/uL (4.0-11.0) Red Blood Count 5.72 x10^6/uL (3.50-5.40) 5.54 x10^6/uL (3.50-5.40) Hemoglobin 16.4 g/dL (12.0-15.5) 16.1 g/dL (12.0-15.5) Hematocrit 48.2 % (36.0-47.0) 47.8 % (36.0-47.0) Mean Corpuscular Volume 84 fL (79-100) 86 fL (79-100) Mean Corpuscular Hemoglobin 29 pg (25-35) 29 pg (25-35) Mean Corpuscular Hemoglobin Concent 34 g/dL (31-37) 34 g/dL (31-37) Red Cell Distribution Width 12.8 % (11.5-14.5) 12.8 % (11.5-14.5) Platelet Count 62 x10^3/uL (140-400) 173 x10^3/uL (140-400) Prothrombin Time 16.0 SEC (11.7-14.0) 14.1 SEC (11.7-14.0) Prothromb Time International Ratio 1.3 (0.8-1.1) 1.1 (0.8-1.1) Activated Partial Thromboplast Time 24 SEC (24-38) 25 SEC (24-38) Fibrinogen 83 mg/dL (200-440) 188 mg/dL (200-440) Phosphorus Level 3.5 mg/dL (2.6-4.7) Albumin 3.8 g/dL (3.4-5.0) Laboratory Tests Test 12/21/17 03:30 White Blood Count 19.2 x10^3/uL (4.0-11.0) Red Blood Count 5.54 x10^6/uL (3.50-5.40) Hemoglobin 16.1 g/dL (12.0-15.5) Hematocrit 47.8 % (36.0-47.0) Mean Corpuscular Volume 86 fL (79-100) Mean Corpuscular Hemoglobin 29 pg (25-35) Mean Corpuscular Hemoglobin Concent 34 g/dL (31-37) Red Cell Distribution Width 12.8 % (11.5-14.5) Platelet Count 173 x10^3/uL (140-400) Prothrombin Time 14.1 SEC (11.7-14.0) Prothromb Time International Ratio 1.1 (0.8-1.1) Activated Partial Thromboplast Time 25 SEC (24-38) Fibrinogen 188 mg/dL (200-440) Sodium Level 138 mmol/L (136-145) Potassium Level 4.7 mmol/L (3.5-5.1) Chloride Level 102 mmol/L (98-107) Carbon Dioxide Level 27 mmol/L (21-32) Anion Gap 9 (6-14) Blood Urea Nitrogen 14 mg/dL (7-20) Creatinine 0.6 mg/dL (0.6-1.0) Estimated GFR (Cockcroft-Gault) 123.9 Glucose Level 242 mg/dL (70-99) Calcium Level 9.0 mg/dL (8.5-10.1) Phosphorus Level 3.5 mg/dL (2.6-4.7) Magnesium Level 2.5 mg/dL (1.8-2.4) Albumin 3.8 g/dL (3.4-5.0) Medications Current Medications Meclizine HCl (Antivert) 25 mg 1X ONCE PO Last administered on 12/17/17at 20:00 ; Start 12/17/17 at 20:00; Stop 12/17/17 at 20:01; Status DC Sodium Chloride 1,000 ml @ 1,000 mls/hr 1X ONCE IV Last administered on at 20:35; Start 12/17/17 at 20:15; Stop 12/17/17 at 21:14; Status DC Ketorolac Tromethamine (Toradol 15mg Vial) 15 mg 1X ONCE IV Last administered on 12/17/17at 20:36; Start 12/17/17 at 20:15; Stop 12/17/17 at 20:16; Status DC Diphenhydramine HCl (Benadryl) 25 mg 1X ONCE PO Last administered on at 02:16; Start 12/18/17 at 02:15; Stop 12/18/17 at 02:18; Status DC Acetaminophen (Tylenol) 500 mg PRN Q6HRS PRN PO MILD PAIN / TEMP; Start at 09:00 Acetaminophen/ Codeine Phosphate (Tylenol #3) 1 tab PRN Q6HRS PRN PO PAIN; Start 12/18/17 at 09:00; Stop 12/18/17 at 12:08; Status DC Ibuprofen (Motrin) 600 mg PRN Q6HRS PRN PO INFLAMMATION; Start 12/18/17 at 09: 00; Stop 12/19/17 at 16:23; Status DC Ondansetron HCl (Zofran) 4 mg PRN Q6HRS PRN IV NAUSEA/VOMITING Last administered on 12/21/17at 12:04; Start 12/18/17 at 09:00 Ondansetron HCl (Zofran Odt) 4 mg PRN Q6HRS PRN PO NAUSEA/VOMITING; Start 12/18 at 09:00; Stop 12/18/17 at 12:08; Status DC Fluticasone Propionate (Flonase) 1 spray DAILY NS Last administered on at 12:52; Start 12/18/17 at 09:00 Acetaminophen/ Hydrocodone Bitart (Lortab 7.5-325/ 15ml Oral Solution) 15 ml PRN Q4HRS PRN PO MODERATE PAIN; Start 12/18/17 at 09:00; Stop 12/19/17 at 16:23 ; Status DC Non-Formulary Medication (Albuterol Sulfate (Proair Hfa Inhaler)) 1 puff PRN Q6HRS PRN INH SHORTNESS OF BREATH; Start 12/18/17 at 09:00; Status UNV Amoxicillin (Amoxil) 750 mg BID PO Last administered on 12/18/17at 21:02; Start 12/18/17 at 10:00; Stop 12/19/17 at 16:23; Status DC Levothyroxine Sodium (Synthroid) 25 mcg DAILY07 PO ; Start 12/18/17 at 10:30; Stop 12/18/17 at 12:08; Status DC Prednisone (Prednisone) 50 mg DAILY PO ; Start 12/18/17 at 10:00; Stop 12/18/17 at 12:08; Status DC Alprazolam (Xanax) 0.25 mg PRN Q8HRS PRN PO ANXIETY / AGITATION; Start at 09:00; Stop 12/19/17 at 08:14; Status DC Zolpidem Tartrate (Ambien) 5 mg PRN QHS PRN PO INSOMNIA; Start 12/18/17 at 09: 00; Stop 12/18/17 at 12:08; Status DC Cetirizine HCl (ZyrTEC) 10 mg DAILY PO ; Start 12/18/17 at 10:00; Stop 12/18/17 at 12:08; Status DC Non-Formulary Medication 1 ea 1X ONCE IV ; Start 12/18/17 at 09:00; Stop at 09:01; Status UNV Potassium Chloride/Dextrose/ Sod Cl 1,000 ml @ 80 mls/hr [id number] IV Last administered on 12/19/17at 10:00; Start 12/18/17 at 09:00; Stop 12/20/17 at 09:07 ; Status DC Albuterol Sulfate (Ventolin Neb Soln) 2.5 mg PRN Q6HRS PRN NEB SHORTNESS OF BREATH Last administered on 12/18/17at 13:12; Start 12/18/17 at 09:30 Iohexol (Omnipaque 300 Mg/ml) 75 ml 1X ONCE IV Last administered on 12/18/17at 10:31; Start 12/18/17 at 10:15; Stop 12/18/17 at 10:16; Status DC Info (CONTRAST GIVEN -- Rx MONITORING) 1 each PRN DAILY PRN MC SEE COMMENTS; Start 12/18/17 at 10:15; Stop 12/20/17 at 10:14; Status DC Levothyroxine Sodium 15 mcg/ Sodium Chloride 5 ml @ 100 mls/hr DAILY IVP Last administered on 12/20/17at 09:41; Start 12/18/17 at 12:30; Stop 12/20/17 at 11:44 ; Status DC Lorazepam (Ativan) 1 mg PRN Q4HRS PRN IV ANXIETY / AGITATION Last administered on 12/21/17at 12:52; Start 12/18/17 at 13:15 Alprazolam (Xanax) 0.25 mg PRN Q8HRS PRN NG ANXIETY / AGITATION Last administered on 12/19/17at 01:13; Start 12/18/17 at 13:15; Stop 12/19/17 at 16:23 ; Status DC Pyridostigmine [place] (Mestinon) 60 mg BID NG Last administered on 12/18/17at 21:01; Start 12/18/17 at 13:00; Stop 12/19/17 at 16:23; Status DC Prednisone (Prednisone) 50 mg DAILY PO Last administered on 12/18/17at 16:03; Start 12/18/17 at 13:00; Stop 12/19/17 at 16:23; Status DC Famotidine (Pepcid) 20 mg QHS PO Last administered on 12/18/17at 21:01; Start at 21:00; Stop 12/19/17 at 16:23; Status DC Calcium Carbonate/ Glycine (Oscal) 500 mg TIDAFTMEAL PO ; Start 12/18/17 at 18: 00; Stop 12/19/17 at 16:23; Status DC Ergocalciferol (Vitamin D2) 50,000 unit MoTh PO ; Start 12/19/17 at 09:00; Stop 12/19/17 at 16:23; Status DC Lidocaine/Sodium Bicarbonate (Buffered Lidocaine 1%) 3 ml STK-MED ONCE .ROUTE ; Start 12/18/17 at 14:32; Stop 12/18/17 at 14:33; Status DC Heparin Sodium (Porcine) (Heparin Sodium) 10,000 unit STK-MED ONCE .ROUTE ; Start 12/18/17 at 14:32; Stop 12/18/17 at 14:33; Status DC Lidocaine/Sodium Bicarbonate (Buffered Lidocaine 1%) 3 ml 1X ONCE INJ Last administered on 12/18/17at 15:15; Start 12/18/17 at 15:15; Stop 12/18/17 at 15:16 ; Status DC Heparin Sodium (Porcine) (Heparin Sodium) 2,200 unit 1X ONCE INT CAT Last administered on 12/18/17at 15:15; Start 12/18/17 at 15:15; Stop 12/18/17 at 15:16 ; Status DC Scopolamine (Transderm-Scop) 1 patch 1X ONCE TD Last administered on at 21:41; Start 12/18/17 at 21:30; Stop 12/19/17 at 16:23; Status DC Albumin Human 1,500 ml @ 0 mls/hr 1X ONCE IV Last administered on 12/19/17at 11:38; Start 12/19/17 at 08:15; Stop 12/19/17 at 08:16; Status DC Heparin Sodium (Porcine) (Heparin Sodium) 10,000 unit STK-MED ONCE .ROUTE ; Start 12/19/17 at 08:40; Stop 12/19/17 at 08:41; Status DC Info (Tpn Per Pharmacy) 1 each PRN DAILY PRN MC SEE COMMENTS Last administered on 12/21/17at 12:37; Start 12/20/17 at 16:30 Pyridostigmine [place] (Regonol) 2.5 mg Q12HR IV Last administered on at 13:07; Start 12/19/17 at 21:00 Methylprednisolone Sodium Succinate (SOLU-Medrol 40MG VIAL) 40 mg Q12HR IV Last administered on 12/21/17at 12:58; Start 12/19/17 at 21:00 Famotidine (Pepcid Vial) 20 mg QHS IVP Last administered on 12/19/17at 21:33; Start 12/19/17 at 21:00; Stop 12/20/17 at 11:44; Status DC Morphine Sulfate (Morphine Sulfate) 2 mg PRN Q2HR PRN IV SEVERE PAIN Last administered on 12/21/17at 10:43; Start 12/19/17 at 23:15 Amino Acids/ Glycerin/ Electrolytes 1,000 ml @ 80 mls/hr [id number] IV Last administered on 12/20/17at 09:57; Start 12/20/17 at 09:30; Stop 12/20/17 at 11:44 ; Status DC Alteplase, Recombinant (Cathflo) 2 mg 1X ONCE IV Last administered on at 12:37; Start 12/20/17 at 11:45; Stop 12/20/17 at 11:46; Status DC Cyclobenzaprine HCl (Flexeril) 5 mg QID PO Last administered on 12/21/17at 09:10 ; Start 12/20/17 at 17:00 Cyclobenzaprine HCl (Flexeril) 10 mg 1X ONCE PO ; Start 12/20/17 at 11:45; Stop 12/20/17 at 11:53; Status DC Levothyroxine Sodium (Synthroid) 25 mcg DAILY07 PO ; Start 12/21/17 at 07:00; Stop 12/21/17 at 07:00; Status DC Levothyroxine Sodium 12.5 mcg/ Sodium Chloride 5 ml @ 100 mls/hr DAILY IVP Last administered on 12/21/17at 13:00; Start 12/21/17 at 09:00 Sodium Chloride 90 meq/Potassium Chloride 50 meq/ Potassium Phosphate 13.6 mmol/ Magnesium Sulfate 5 meq/ Calcium Gluconate 5 meq/ Multivitamins 10 ml/Chromium/ Copper/Manganese/ Seleni/Zn 1 ml/ Total Parenteral Nutrition/Amino Acids/ Dextrose/ Fat Emulsion Intravenous 1,512 ml @ 63 mls/hr TPN CONT IV Last administered on 12/20/17at 20:58; Start 12/20/17 at 22:00; Stop 12/21/17 at 21:59 Albumin Human 1,200 ml @ 0 mls/hr 1X ONCE IV Last administered on 12/21/17at 10:40; Start 12/21/17 at 08:45; Stop 12/21/17 at 08:46; Status DC Heparin Sodium (Porcine) (Heparin Sodium) 10,000 unit STK-MED ONCE .ROUTE ; Start 12/21/17 at 08:50; Stop 12/21/17 at 08:51; Status DC Diphenhydramine HCl (Benadryl) 50 mg STK-MED ONCE .ROUTE ; Start 12/21/17 at 11: 46; Stop 12/21/17 at 11:47; Status DC Diphenhydramine HCl (Benadryl) 50 mg 1X ONCE IVP Last administered on at 11:59; Start 12/21/17 at 12:00; Stop 12/21/17 at 12:01; Status DC Sodium Chloride 90 meq/Potassium Chloride 50 meq/ Potassium Phosphate 13.6 mmol/ Magnesium Sulfate 5 meq/ Calcium Gluconate 5 meq/ Multivitamins 10 ml/Chromium/ Copper/Manganese/ Seleni/Zn 1 ml/ Total Parenteral Nutrition/Amino Acids/ Dextrose/ Fat Emulsion Intravenous 1,512 ml @ 63 mls/hr TPN CONT IV ; Start at 22:00; Stop 12/22/17 at 21:59 Active Scripts Active Reported Amoxicillin 875 Mg Tablet 1 Tab PO BID Levothyroxine Sodium 25 Mcg Tablet 1 Tab PO DAILY Proair Hfa Inhaler (Albuterol Sulfate) 8.5 Gm Hfa.aer.ad 1 Puff INH PRN Q6HRS PRN [kaitlib fe] Hydrocodone-Apap 7.5-325/15 Soln (Hydrocodone Bit/Acetaminophen) 15 Ml Solution 15 Ml PO PRN Q4HRS PRN Prednisone 50 Mg Tablet 1 Tab PO DAILY Fluticasone Propionate Nasal [place] (Fluticasone Propionate) 16 Gm [place].susp 1 [place] NS DAILY [zoloft] [ativan] Vitals/I & O Vital Sign - Last 24 Hours 12/20/17 12/20/17 12/20/17 12/20/17 18:53 19:44 20:00 20:09 Temp 98.2 98.2 Pulse 105 Resp 16 B/P (MAP) 134/84 (101) Pulse Ox 98 98 97 O2 Delivery Room Air Room Air Room Air Room Air 12/20/17 12/20/17 12/21/17 12/21/17 22:23 23:00 03:28 03:40 Temp 97.5 97.5 Pulse 108 107 Resp 16 16 B/P (MAP) 157/92 (113) 156/92 (113) Pulse Ox 97 95 96 O2 Delivery Room Air Room Air Room Air 12/21/17 12/21/17 12/21/17 12/21/17 05:54 07:29 07:32 08:00 Temp 97.9 97.9 Pulse 100 Resp 17 B/P (MAP) 141/81 (101) Pulse Ox 95 95 O2 Delivery Room Air Room Air Room Air Room Air 12/21/17 12/21/17 12/21/17 12/21/17 10:43 11:10 13:34 15:02 Temp 97.5 97.5 Pulse 111 Resp 19 17 17 B/P (MAP) 152/94 (113) Pulse Ox 96 97 O2 Delivery Room Air Room Air Room Air Room Air Intake and Output 12/20/17 12/20/17 12/21/17 15:00 23:00 07:00 Intake Total 0 ml Balance 0 ml FRANK JAMES MD Dec 21, 2017 16:51
[2017-12-21 19:46] VITALS: BP 134/84
[2017-12-21] MEDS ORDERED: TOTAL PARENTERAL NUTRITION IV SCH ×10 (22:00)
[2017-12-21] MEDS ORDERED: AMINO ACIDS IV SCH ×10 (22:00)
[2017-12-21] MEDS ORDERED: DEXTROSE 70% IV SCH ×10 (22:00)
[2017-12-21] MEDS ORDERED: [UNRECOGNIZED DRUG - OTHER] IV SCH ×10 (22:00)
[2017-12-21 23:45] VITALS: BP 146/88
[2017-12-22] MEDS: methylPREDNISolone SOD SUCC PF 40 MG/ML VIAL. IV SCH ×3 (00:02→21:00)
[2017-12-22] MEDS: MORPHINE SULFATE 2 MG/ML VIAL. IV PRN ×4 (00:03→21:40)
[2017-12-22] MEDS: PYRIDOSTIGMINE BROMIDE 10 MG/2 ML AMPUL. IV SCH ×3 (00:03→21:36)
[2017-12-22 03:52] VITALS: BP 153/87
[2017-12-22 05:08] LABS: CALCIUM 8.4 mg/dL (8.5-10.1); CREATININE 0.6 mg/dL (0.6-1.0); GFR 123.9
[2017-12-22 07:33] VITALS: BP 139/85
[2017-12-22] MEDS: CYCLOBENZAPRINE 10 MG TABLET. PO SCH ×4 (09:00→21:00)
[2017-12-22] MEDS: FLUTICASONE 50MCG/NASAL SPRAY 16GM BOTTLE. NS SCH (10:36)
[2017-12-22] MEDS: LEVOTHYROXINE SODIUM IVP SCH (10:45)
[2017-12-22] MEDS: NORMAL SALINE IVP SCH (10:45)
--- NOTE | 2017-12-22 10:59 | PDOC ---
Renal-Progress Notes Subjective Notes Notes LESS DIPLOPLIA History of Present Illness Hx of present illness STABLE Vitals Vitals Vital Signs Date Time Temp Pulse Resp B/P (MAP) Pulse Ox O2 Delivery O2 Flow Rate FiO2 12/22/17 10:45 18 Room Air 12/22/17 07:33 97.5 97 139/85 (103) 95 97.5 Weight Weight [ ] I.O. Intake and Output Intake and Output 12/22/17 07:00 Intake Total 0 ml Balance 0 ml Intake Oral 0 ml # Voids 4 Labs Labs Laboratory Tests Test 12/22/17 04:40 Sodium Level 141 mmol/L (136-145) Potassium Level 4.0 mmol/L (3.5-5.1) Chloride Level 104 mmol/L (98-107) Carbon Dioxide Level 29 mmol/L (21-32) Anion Gap 8 (6-14) Blood Urea Nitrogen 16 mg/dL (7-20) Creatinine 0.6 mg/dL (0.6-1.0) Estimated GFR (Cockcroft-Gault) 123.9 Glucose Level 171 mg/dL (70-99) Calcium Level 8.4 mg/dL (8.5-10.1) Review of Systems Constitutional: yes: weakness, alert, oriented Ears/Nose/Throat: Yes: no symptom reported Eyes: Yes: no symptom reported Pulmonary: Yes no symptom reported Cardiovascular: Yes no symptom reported Genitourinary: Yes: no symptom reported Musculoskeletal: Yes: no symptom reported, other (GENERALIZED WEAKNESS) Psychiatric/Neurological: Yes: tingling, weakness Endocrine: Yes: no symptom reported Hematologic/Lymphatic: Yes: no symptom reported Physical Exam General Appearance: no apparent distress Skin: warm Respiratory: bilateral CTA Heart: S1S2, RRR Abdomen: soft, bowel sounds present Genitourinary: bladder flat Extremities: pulses present, no edema, atrophy Neurology: alert, oriented, follow commands, Ext weakness Assessment Assessment IMP M GRAVIS-SYMPTOMS ARE SLIGHTLY BETTER PER PT PLAN TPE # 3 TOMORROW LABS IN AM RICHARDSON FORD MD Dec 22, 2017 10:59
--- NOTE | 2017-12-22 11:12 | PDOC ---
PROGRESS NOTES Chief Complaint Chief Complaint myasthenia gravis - new diagnosis Diplopia Dysphagia Stiff neck History of Present Illness History of Present Illness pleasant more alert today , feels better, has started plasmapheresis 2 treatment and the third is tomorrow 12/23 ,-has an indwelling right subclavian catheter Still stiff neck, diplopia improved now on and off , right side hand weakness is better Had some issues with Dobbhoff kept on coiling hence now PICC line on the left and TPN going She is able to spit up her secretions-doing well with NIF Does admit to increasing weakness or fatigability upon repetitive motion which is consistent with myasthenia gravis Plan: pyridostigmine and IV steroids started Plasmapheresis per renal/neurology-claims will get 5 doses every other day hence will be here for a while (10 days? at least) Thyroid is IV because of swallow issues-still nothing by mouth DTRs are +2 IV Pepcid since swallow issues and is nothing by mouth TPN tolerated Discussed in detail Vitals Vitals Vital Signs Date Time Temp Pulse Resp B/P (MAP) Pulse Ox O2 Delivery O2 Flow Rate FiO2 12/22/17 10:45 18 Room Air 12/22/17 07:33 97.5 97 139/85 (103) 95 97.5 Physical Exam General: Alert, Oriented X3, Cooperative, No acute distress Heart: Regular rate, Normal S1, Normal S2 Lungs: Clear Abdomen: Normal bowel sounds, Soft, No tenderness, No hepatosplenomegaly, No masses Extremities: No clubbing, No cyanosis Skin: No rashes, No breakdown, No significant lesion, Other (lipoma at the nape ) Labs LABS Laboratory Tests Test 12/22/17 04:40 Sodium Level 141 mmol/L (136-145) Potassium Level 4.0 mmol/L (3.5-5.1) Chloride Level 104 mmol/L (98-107) Carbon Dioxide Level 29 mmol/L (21-32) Anion Gap 8 (6-14) Blood Urea Nitrogen 16 mg/dL (7-20) Creatinine 0.6 mg/dL (0.6-1.0) Estimated GFR (Cockcroft-Gault) 123.9 Glucose Level 171 mg/dL (70-99) Calcium Level 8.4 mg/dL (8.5-10.1) Assessment and Plan Assessmemt and Plan Problems Medical Problems: (1) Diplopia Status: Acute (2) Marijuana abuse Status: Acute (3) Myasthenia gravis with acute exacerbation Status: Acute (4) Neck muscle weakness Status: Acute (5) RUE weakness Status: Acute (6) Sinusitis Status: Acute Comment Review of Relevant I have reviewed the following items maliha (where applicable) has been applied. Labs Laboratory Tests Test 12/20/17 13:30 12/21/17 03:30 12/22/17 04:40 White Blood Count 15.2 x10^3/uL (4.0-11.0) 19.2 x10^3/uL (4.0-11.0) Red Blood Count 5.72 x10^6/uL (3.50-5.40) 5.54 x10^6/uL (3.50-5.40) Hemoglobin 16.4 g/dL (12.0-15.5) 16.1 g/dL (12.0-15.5) Hematocrit 48.2 % (36.0-47.0) 47.8 % (36.0-47.0) Mean Corpuscular Volume 84 fL (79-100) 86 fL (79-100) Mean Corpuscular Hemoglobin 29 pg (25-35) 29 pg (25-35) Mean Corpuscular Hemoglobin Concent 34 g/dL (31-37) 34 g/dL (31-37) Red Cell Distribution Width 12.8 % (11.5-14.5) 12.8 % (11.5-14.5) Platelet Count 62 x10^3/uL (140-400) 173 x10^3/uL (140-400) Prothrombin Time 16.0 SEC (11.7-14.0) 14.1 SEC (11.7-14.0) Prothromb Time International Ratio 1.3 (0.8-1.1) 1.1 (0.8-1.1) Activated Partial Thromboplast Time 24 SEC (24-38) 25 SEC (24-38) Fibrinogen 83 mg/dL (200-440) 188 mg/dL (200-440) Sodium Level 138 mmol/L (136-145) 141 mmol/L (136-145) Potassium Level 4.7 mmol/L (3.5-5.1) 4.0 mmol/L (3.5-5.1) Chloride Level 102 mmol/L (98-107) 104 mmol/L (98-107) Carbon Dioxide Level 27 mmol/L (21-32) 29 mmol/L (21-32) Anion Gap 9 (6-14) 8 (6-14) Blood Urea Nitrogen 14 mg/dL (7-20) 16 mg/dL (7-20) Creatinine 0.6 mg/dL (0.6-1.0) 0.6 mg/dL (0.6-1.0) Estimated GFR (Cockcroft-Gault) 123.9 123.9 Glucose Level 242 mg/dL (70-99) 171 mg/dL (70-99) Calcium Level 9.0 mg/dL (8.5-10.1) 8.4 mg/dL (8.5-10.1) Phosphorus Level 3.5 mg/dL (2.6-4.7) Magnesium Level 2.5 mg/dL (1.8-2.4) Albumin 3.8 g/dL (3.4-5.0) Laboratory Tests Test 12/22/17 04:40 Sodium Level 141 mmol/L (136-145) Potassium Level 4.0 mmol/L (3.5-5.1) Chloride Level 104 mmol/L (98-107) Carbon Dioxide Level 29 mmol/L (21-32) Anion Gap 8 (6-14) Blood Urea Nitrogen 16 mg/dL (7-20) Creatinine 0.6 mg/dL (0.6-1.0) Estimated GFR (Cockcroft-Gault) 123.9 Glucose Level 171 mg/dL (70-99) Calcium Level 8.4 mg/dL (8.5-10.1) Medications Current Medications Meclizine HCl (Antivert) 25 mg 1X ONCE PO Last administered on 12/17/17at 20:00 ; Start 12/17/17 at 20:00; Stop 12/17/17 at 20:01; Status DC Sodium Chloride 1,000 ml @ 1,000 mls/hr 1X ONCE IV Last administered on at 20:35; Start 12/17/17 at 20:15; Stop 12/17/17 at 21:14; Status DC Ketorolac Tromethamine (Toradol 15mg Vial) 15 mg 1X ONCE IV Last administered on 12/17/17at 20:36; Start 12/17/17 at 20:15; Stop 12/17/17 at 20:16; Status DC Diphenhydramine HCl (Benadryl) 25 mg 1X ONCE PO Last administered on at 02:16; Start 12/18/17 at 02:15; Stop 12/18/17 at 02:18; Status DC Acetaminophen (Tylenol) 500 mg PRN Q6HRS PRN PO MILD PAIN / TEMP; Start at 09:00 Acetaminophen/ Codeine Phosphate (Tylenol #3) 1 tab PRN Q6HRS PRN PO PAIN; Start 12/18/17 at 09:00; Stop 12/18/17 at 12:08; Status DC Ibuprofen (Motrin) 600 mg PRN Q6HRS PRN PO INFLAMMATION; Start 12/18/17 at 09: 00; Stop 12/19/17 at 16:23; Status DC Ondansetron HCl (Zofran) 4 mg PRN Q6HRS PRN IV NAUSEA/VOMITING Last administered on 12/21/17at 12:04; Start 12/18/17 at 09:00 Ondansetron HCl (Zofran Odt) 4 mg PRN Q6HRS PRN PO NAUSEA/VOMITING; Start 12/18 at 09:00; Stop 12/18/17 at 12:08; Status DC Fluticasone Propionate (Flonase) 1 spray DAILY NS Last administered on at 10:36; Start 12/18/17 at 09:00 Acetaminophen/ Hydrocodone Bitart (Lortab 7.5-325/ 15ml Oral Solution) 15 ml PRN Q4HRS PRN PO MODERATE PAIN; Start 12/18/17 at 09:00; Stop 12/19/17 at 16:23 ; Status DC Non-Formulary Medication (Albuterol Sulfate (Proair Hfa Inhaler)) 1 puff PRN Q6HRS PRN INH SHORTNESS OF BREATH; Start 12/18/17 at 09:00; Status UNV Amoxicillin (Amoxil) 750 mg BID PO Last administered on 12/18/17at 21:02; Start 12/18/17 at 10:00; Stop 12/19/17 at 16:23; Status DC Levothyroxine Sodium (Synthroid) 25 mcg DAILY07 PO ; Start 12/18/17 at 10:30; Stop 12/18/17 at 12:08; Status DC Prednisone (Prednisone) 50 mg DAILY PO ; Start 12/18/17 at 10:00; Stop 12/18/17 at 12:08; Status DC Alprazolam (Xanax) 0.25 mg PRN Q8HRS PRN PO ANXIETY / AGITATION; Start at 09:00; Stop 12/19/17 at 08:14; Status DC Zolpidem Tartrate (Ambien) 5 mg PRN QHS PRN PO INSOMNIA; Start 12/18/17 at 09: 00; Stop 12/18/17 at 12:08; Status DC Cetirizine HCl (ZyrTEC) 10 mg DAILY PO ; Start 12/18/17 at 10:00; Stop 12/18/17 at 12:08; Status DC Non-Formulary Medication 1 ea 1X ONCE IV ; Start 12/18/17 at 09:00; Stop at 09:01; Status UNV Potassium Chloride/Dextrose/ Sod Cl 1,000 ml @ 80 mls/hr [id number] IV Last administered on 12/19/17at 10:00; Start 12/18/17 at 09:00; Stop 12/20/17 at 09:07 ; Status DC Albuterol Sulfate (Ventolin Neb Soln) 2.5 mg PRN Q6HRS PRN NEB SHORTNESS OF BREATH Last administered on 12/18/17at 13:12; Start 12/18/17 at 09:30 Iohexol (Omnipaque 300 Mg/ml) 75 ml 1X ONCE IV Last administered on 12/18/17at 10:31; Start 12/18/17 at 10:15; Stop 12/18/17 at 10:16; Status DC Info (CONTRAST GIVEN -- Rx MONITORING) 1 each PRN DAILY PRN MC SEE COMMENTS; Start 12/18/17 at 10:15; Stop 12/20/17 at 10:14; Status DC Levothyroxine Sodium 15 mcg/ Sodium Chloride 5 ml @ 100 mls/hr DAILY IVP Last administered on 12/20/17at 09:41; Start 12/18/17 at 12:30; Stop 12/20/17 at 11:44 ; Status DC Lorazepam (Ativan) 1 mg PRN Q4HRS PRN IV ANXIETY / AGITATION Last administered on 12/22/17at 10:46; Start 12/18/17 at 13:15 Alprazolam (Xanax) 0.25 mg PRN Q8HRS PRN NG ANXIETY / AGITATION Last administered on 12/19/17at 01:13; Start 12/18/17 at 13:15; Stop 12/19/17 at 16:23 ; Status DC Pyridostigmine [place] (Mestinon) 60 mg BID NG Last administered on 12/18/17at 21:01; Start 12/18/17 at 13:00; Stop 12/19/17 at 16:23; Status DC Prednisone (Prednisone) 50 mg DAILY PO Last administered on 12/18/17at 16:03; Start 12/18/17 at 13:00; Stop 12/19/17 at 16:23; Status DC Famotidine (Pepcid) 20 mg QHS PO Last administered on 12/18/17at 21:01; Start at 21:00; Stop 12/19/17 at 16:23; Status DC Calcium Carbonate/ Glycine (Oscal) 500 mg TIDAFTMEAL PO ; Start 12/18/17 at 18: 00; Stop 12/19/17 at 16:23; Status DC Ergocalciferol (Vitamin D2) 50,000 unit MoTh PO ; Start 12/19/17 at 09:00; Stop 12/19/17 at 16:23; Status DC Lidocaine/Sodium Bicarbonate (Buffered Lidocaine 1%) 3 ml STK-MED ONCE .ROUTE ; Start 12/18/17 at 14:32; Stop 12/18/17 at 14:33; Status DC Heparin Sodium (Porcine) (Heparin Sodium) 10,000 unit STK-MED ONCE .ROUTE ; Start 12/18/17 at 14:32; Stop 12/18/17 at 14:33; Status DC Lidocaine/Sodium Bicarbonate (Buffered Lidocaine 1%) 3 ml 1X ONCE INJ Last administered on 12/18/17at 15:15; Start 12/18/17 at 15:15; Stop 12/18/17 at 15:16 ; Status DC Heparin Sodium (Porcine) (Heparin Sodium) 2,200 unit 1X ONCE INT CAT Last administered on 12/18/17at 15:15; Start 12/18/17 at 15:15; Stop 12/18/17 at 15:16 ; Status DC Scopolamine (Transderm-Scop) 1 patch 1X ONCE TD Last administered on at 21:41; Start 12/18/17 at 21:30; Stop 12/19/17 at 16:23; Status DC Albumin Human 1,500 ml @ 0 mls/hr 1X ONCE IV Last administered on 12/19/17at 11:38; Start 12/19/17 at 08:15; Stop 12/19/17 at 08:16; Status DC Heparin Sodium (Porcine) (Heparin Sodium) 10,000 unit STK-MED ONCE .ROUTE ; Start 12/19/17 at 08:40; Stop 12/19/17 at 08:41; Status DC Info (Tpn Per Pharmacy) 1 each PRN DAILY PRN MC SEE COMMENTS Last administered on 12/21/17at 12:37; Start 12/20/17 at 16:30 Pyridostigmine [place] (Regonol) 2.5 mg Q12HR IV Last administered on at 10:43; Start 12/19/17 at 21:00 Methylprednisolone Sodium Succinate (SOLU-Medrol 40MG VIAL) 40 mg Q12HR IV Last administered on 12/22/17at 10:41; Start 12/19/17 at 21:00 Famotidine (Pepcid Vial) 20 mg QHS IVP Last administered on 12/19/17at 21:33; Start 12/19/17 at 21:00; Stop 12/20/17 at 11:44; Status DC Morphine Sulfate (Morphine Sulfate) 2 mg PRN Q2HR PRN IV SEVERE PAIN Last administered on 12/22/17at 10:45; Start 12/19/17 at 23:15 Amino Acids/ Glycerin/ Electrolytes 1,000 ml @ 80 mls/hr [id number] IV Last administered on 12/20/17at 09:57; Start 12/20/17 at 09:30; Stop 12/20/17 at 11:44 ; Status DC Alteplase, Recombinant (Cathflo) 2 mg 1X ONCE IV Last administered on at 12:37; Start 12/20/17 at 11:45; Stop 12/20/17 at 11:46; Status DC Cyclobenzaprine HCl (Flexeril) 5 mg QID PO Last administered on 12/21/17at 09:10 ; Start 12/20/17 at 17:00 Cyclobenzaprine HCl (Flexeril) 10 mg 1X ONCE PO ; Start 12/20/17 at 11:45; Stop 12/20/17 at 11:53; Status DC Levothyroxine Sodium (Synthroid) 25 mcg DAILY07 PO ; Start 12/21/17 at 07:00; Stop 12/21/17 at 07:00; Status DC Levothyroxine Sodium 12.5 mcg/ Sodium Chloride 5 ml @ 100 mls/hr DAILY IVP Last administered on 12/22/17at 10:45; Start 12/21/17 at 09:00 Sodium Chloride 90 meq/Potassium Chloride 50 meq/ Potassium Phosphate 13.6 mmol/ Magnesium Sulfate 5 meq/ Calcium Gluconate 5 meq/ Multivitamins 10 ml/Chromium/ Copper/Manganese/ Seleni/Zn 1 ml/ Total Parenteral Nutrition/Amino Acids/ Dextrose/ Fat Emulsion Intravenous 1,512 ml @ 63 mls/hr TPN CONT IV Last administered on 12/20/17at 20:58; Start 12/20/17 at 22:00; Stop 12/21/17 at 21:59 ; Status DC Albumin Human 1,200 ml @ 0 mls/hr 1X ONCE IV Last administered on 12/21/17at 10:40; Start 12/21/17 at 08:45; Stop 12/21/17 at 08:46; Status DC Heparin Sodium (Porcine) (Heparin Sodium) 10,000 unit STK-MED ONCE .ROUTE ; Start 12/21/17 at 08:50; Stop 12/21/17 at 08:51; Status DC Diphenhydramine HCl (Benadryl) 50 mg STK-MED ONCE .ROUTE ; Start 12/21/17 at 11: 46; Stop 12/21/17 at 11:47; Status DC Diphenhydramine HCl (Benadryl) 50 mg 1X ONCE IVP Last administered on at 11:59; Start 12/21/17 at 12:00; Stop 12/21/17 at 12:01; Status DC Sodium Chloride 90 meq/Potassium Chloride 50 meq/ Potassium Phosphate 13.6 mmol/ Magnesium Sulfate 5 meq/ Calcium Gluconate 5 meq/ Multivitamins 10 ml/Chromium/ Copper/Manganese/ Seleni/Zn 1 ml/ Total Parenteral Nutrition/Amino Acids/ Dextrose/ Fat Emulsion Intravenous 1,512 ml @ 63 mls/hr TPN CONT IV Last administered on 12/21/17at 22:00; Start 12/21/17 at 22:00; Stop 12/22/17 at 21:59 Active Scripts Active Reported Amoxicillin 875 Mg Tablet 1 Tab PO BID Levothyroxine Sodium 25 Mcg Tablet 1 Tab PO DAILY Proair Hfa Inhaler (Albuterol Sulfate) 8.5 Gm Hfa.aer.ad 1 Puff INH PRN Q6HRS PRN [kaitlib fe] Hydrocodone-Apap 7.5-325/15 Soln (Hydrocodone Bit/Acetaminophen) 15 Ml Solution 15 Ml PO PRN Q4HRS PRN Prednisone 50 Mg Tablet 1 Tab PO DAILY Fluticasone Propionate Nasal [place] (Fluticasone Propionate) 16 Gm [place].susp 1 [place] NS DAILY [zoloft] [ativan] Vitals/I & O Vital Sign - Last 24 Hours 12/21/17 12/21/17 12/21/17 12/21/17 13:34 15:02 19:46 20:00 Temp 97.5 98.0 97.5 98.0 Pulse 111 113 Resp 17 18 B/P (MAP) 152/94 (113) 134/84 (101) Pulse Ox 96 97 98 O2 Delivery Room Air Room Air Room Air Room Air 12/21/17 12/22/17 12/22/17 12/22/17 23:45 00:03 03:52 04:37 Temp 98.0 98.4 98.0 98.4 Pulse 114 122 Resp 20 17 20 17 B/P (MAP) 146/88 (107) 153/87 (109) Pulse Ox 97 97 O2 Delivery Room Air Room Air Room Air Room Air 12/22/17 12/22/17 12/22/17 05:10 07:33 10:45 Temp 97.5 97.5 Pulse 97 Resp 17 20 18 B/P (MAP) 139/85 (103) Pulse Ox 95 O2 Delivery Room Air Room Air Room Air Intake and Output 12/21/17 12/21/17 12/22/17 15:00 23:00 07:00 Intake Total 0 ml 0 ml Balance 0 ml 0 ml FRANK JAMES MD Dec 22, 2017 11:12
[2017-12-22 11:17] VITALS: BP 144/104
[2017-12-22] MEDS: TPN PER PHARMACY MC PRN (11:32)
[2017-12-22 15:40] VITALS: BP 153/94
--- NOTE | 2017-12-22 16:20 | PDOC ---
PULMONARY PROGRESS NOTES Subjective PT NOT SEEN Vitals Vital Signs Date Time Temp Pulse Resp B/P (MAP) Pulse Ox O2 Delivery O2 Flow Rate FiO2 12/22/17 15:40 97.7 113 19 153/94 (113) 95 Room Air 97.7 Labs Laboratory Tests Test 12/21/17 03:30 12/22/17 04:40 12/22/17 14:40 White Blood Count 19.2 x10^3/uL (4.0-11.0) Red Blood Count 5.54 x10^6/uL (3.50-5.40) Hemoglobin 16.1 g/dL (12.0-15.5) Hematocrit 47.8 % (36.0-47.0) Mean Corpuscular Volume 86 fL (79-100) Mean Corpuscular Hemoglobin 29 pg (25-35) Mean Corpuscular Hemoglobin Concent 34 g/dL (31-37) Red Cell Distribution Width 12.8 % (11.5-14.5) Platelet Count 173 x10^3/uL (140-400) Prothrombin Time 14.1 SEC (11.7-14.0) Prothromb Time International Ratio 1.1 (0.8-1.1) Activated Partial Thromboplast Time 25 SEC (24-38) Fibrinogen 188 mg/dL (200-440) 120 mg/dL (200-440) Sodium Level 138 mmol/L (136-145) 141 mmol/L (136-145) Potassium Level 4.7 mmol/L (3.5-5.1) 4.0 mmol/L (3.5-5.1) Chloride Level 102 mmol/L (98-107) 104 mmol/L (98-107) Carbon Dioxide Level 27 mmol/L (21-32) 29 mmol/L (21-32) Anion Gap 9 (6-14) 8 (6-14) Blood Urea Nitrogen 14 mg/dL (7-20) 16 mg/dL (7-20) Creatinine 0.6 mg/dL (0.6-1.0) 0.6 mg/dL (0.6-1.0) Estimated GFR (Cockcroft-Gault) 123.9 123.9 Glucose Level 242 mg/dL (70-99) 171 mg/dL (70-99) Calcium Level 9.0 mg/dL (8.5-10.1) 8.4 mg/dL (8.5-10.1) Phosphorus Level 3.5 mg/dL (2.6-4.7) Magnesium Level 2.5 mg/dL (1.8-2.4) Albumin 3.8 g/dL (3.4-5.0) Laboratory Tests Test 12/22/17 04:40 12/22/17 14:40 Sodium Level 141 mmol/L (136-145) Potassium Level 4.0 mmol/L (3.5-5.1) Chloride Level 104 mmol/L (98-107) Carbon Dioxide Level 29 mmol/L (21-32) Anion Gap 8 (6-14) Blood Urea Nitrogen 16 mg/dL (7-20) Creatinine 0.6 mg/dL (0.6-1.0) Estimated GFR (Cockcroft-Gault) 123.9 Glucose Level 171 mg/dL (70-99) Calcium Level 8.4 mg/dL (8.5-10.1) Fibrinogen 120 mg/dL (200-440) Medications Active Scripts Medications Dose Route/Sig Max Daily Dose Days Date Category Amoxicillin 875 Mg Tablet 1 Tab PO BID 12/18/17 Reported Levothyroxine Sodium 25 Mcg Tablet 1 Tab PO DAILY 12/18/17 Reported Proair Hfa Inhaler (Albuterol Sulfate) 8.5 Gm Hfa.aer.ad 1 Puff INH PRN Q6HRS PRN 12/18/17 Reported [kaitlib fe] 12/18/17 Reported Hydrocodone-Apap 7.5-325/15 Soln (Hydrocodone Bit/Acetaminophen) 15 Ml Solution 15 Ml PO PRN Q4HRS PRN 12/18/17 Reported Prednisone 50 Mg Tablet 1 Tab PO DAILY 12/18/17 Reported Fluticasone Propionate Nasal [place] (Fluticasone Propionate) 16 Gm [place].susp 1 [place] NS DAILY 12/18/17 Reported [zoloft] 12/18/17 Reported [ativan] 12/18/17 Reported Impression . IMPRESSION: 1. Suspect myasthenia gravis. 2. Dysphagia secondary to above, status post Dobbhoff tube placement, came out 3. Mild dyspnea secondary to above. 4. History of Eze's thyroiditis. Plan . PT NOT SEEN I HAVE BEEN FOLLOWING NIF, SPOKE WITH RT , NIF HAS NOT GOWN DOWN WILL S/O CALL IF NEEDED NOTE FROM 12/20/17 I WENT OVER RISK AND BENEFIT OF TPN AND DOBBHOFF PLACEMENT WITH PT, RECOMMENDED DOBBHOFF PATIENT AGREED D/W MOTHER SHE DOES NOT WANT DOBBHOFF, ADAMANT WHY SHE DOES NOT WANT IT, MOTHER DOES NOT WANT HER DAUGHTER SUFFERING, MOTHER UPSET WITH ME, I TRIED TO CLAM HER DOWN AND ANSWERED ALL QUESTIONS, I DID EMPHASIZE THAT WE GIVE OPTIONS AND HAVE PATIENT MAKE INFORMED CONSENT, I SPOKE WITH RADIOLOGIST AND D/C ORDER D/W DR DUGGAN NIF IS GOOD -50 WILL CONTINUE THO MONITOR PLASMAPHERESIS PER NEPHRO IS RESP STATUS IS COMPENSATED NIF TODAY IS BETTER -90 I WILL SEE HER NEEDED AROLDO NAZARIO MD Dec 22, 2017 16:20
--- NOTE | 2017-12-22 18:20 | PDOC ---
PROGRESS NOTES Assessment Problems Medical Problems: (1) Diplopia Status: Acute (2) Marijuana abuse Status: Acute (3) Myasthenia gravis with acute exacerbation Status: Acute (4) Neck muscle weakness Status: Acute (5) RUE weakness Status: Acute (6) Sinusitis Status: Acute Plan Myasthenia gravis, improved with steroids and one plasmapheresis. Chest CT negative for thymoma myasthenia serology. Speech therapy Monitor negative inspiratory force Pulmonary consultation appreciated Plasmapheresis QOD IV steroids and pyridostigmine Plan discussed with patient and multiple family members at bedside. Subjective Patient resting in bed. She is feeling better. Multiple family members at bedside. No acute events. Objective Vital Signs Date Time Temp Pulse Resp B/P (MAP) Pulse Ox O2 Delivery O2 Flow Rate FiO2 12/22/17 15:40 97.7 113 19 153/94 (113) 95 Room Air 97.7 Intake and Output 12/22/17 07:00 Intake Total 0 ml Balance 0 ml Intake Oral 0 ml # Voids 4 PHYSICAL EXAM Alert. Oriented to time, place and person. PERRL. EOMI. CN: no focal findings. no diplopia. Muscle tone: normal. Muscle strength: Good, 5/5 DTR: 2+ Plantar reflex: Flexor Gait: not examined in bed. Sensory exam: no abnormal findings. No cerebellar signs elicited. Review of Relevant I have reviewed the following items maliha (where applicable) has been applied. Labs Laboratory Tests Test 12/21/17 03:30 12/22/17 04:40 12/22/17 14:40 White Blood Count 19.2 x10^3/uL (4.0-11.0) Red Blood Count 5.54 x10^6/uL (3.50-5.40) Hemoglobin 16.1 g/dL (12.0-15.5) Hematocrit 47.8 % (36.0-47.0) Mean Corpuscular Volume 86 fL (79-100) Mean Corpuscular Hemoglobin 29 pg (25-35) Mean Corpuscular Hemoglobin Concent 34 g/dL (31-37) Red Cell Distribution Width 12.8 % (11.5-14.5) Platelet Count 173 x10^3/uL (140-400) Prothrombin Time 14.1 SEC (11.7-14.0) Prothromb Time International Ratio 1.1 (0.8-1.1) Activated Partial Thromboplast Time 25 SEC (24-38) Fibrinogen 188 mg/dL (200-440) 120 mg/dL (200-440) Sodium Level 138 mmol/L (136-145) 141 mmol/L (136-145) Potassium Level 4.7 mmol/L (3.5-5.1) 4.0 mmol/L (3.5-5.1) Chloride Level 102 mmol/L (98-107) 104 mmol/L (98-107) Carbon Dioxide Level 27 mmol/L (21-32) 29 mmol/L (21-32) Anion Gap 9 (6-14) 8 (6-14) Blood Urea Nitrogen 14 mg/dL (7-20) 16 mg/dL (7-20) Creatinine 0.6 mg/dL (0.6-1.0) 0.6 mg/dL (0.6-1.0) Estimated GFR (Cockcroft-Gault) 123.9 123.9 Glucose Level 242 mg/dL (70-99) 171 mg/dL (70-99) Calcium Level 9.0 mg/dL (8.5-10.1) 8.4 mg/dL (8.5-10.1) Phosphorus Level 3.5 mg/dL (2.6-4.7) Magnesium Level 2.5 mg/dL (1.8-2.4) Albumin 3.8 g/dL (3.4-5.0) Laboratory Tests Test 12/22/17 04:40 12/22/17 14:40 Sodium Level 141 mmol/L (136-145) Potassium Level 4.0 mmol/L (3.5-5.1) Chloride Level 104 mmol/L (98-107) Carbon Dioxide Level 29 mmol/L (21-32) Anion Gap 8 (6-14) Blood Urea Nitrogen 16 mg/dL (7-20) Creatinine 0.6 mg/dL (0.6-1.0) Estimated GFR (Cockcroft-Gault) 123.9 Glucose Level 171 mg/dL (70-99) Calcium Level 8.4 mg/dL (8.5-10.1) Fibrinogen 120 mg/dL (200-440) Medications Current Medications Meclizine HCl (Antivert) 25 mg 1X ONCE PO Last administered on 12/17/17at 20:00 ; Start 12/17/17 at 20:00; Stop 12/17/17 at 20:01; Status DC Sodium Chloride 1,000 ml @ 1,000 mls/hr 1X ONCE IV Last administered on at 20:35; Start 12/17/17 at 20:15; Stop 12/17/17 at 21:14; Status DC Ketorolac Tromethamine (Toradol 15mg Vial) 15 mg 1X ONCE IV Last administered on 12/17/17at 20:36; Start 12/17/17 at 20:15; Stop 12/17/17 at 20:16; Status DC Diphenhydramine HCl (Benadryl) 25 mg 1X ONCE PO Last administered on at 02:16; Start 12/18/17 at 02:15; Stop 12/18/17 at 02:18; Status DC Acetaminophen (Tylenol) 500 mg PRN Q6HRS PRN PO MILD PAIN / TEMP; Start at 09:00 Acetaminophen/ Codeine Phosphate (Tylenol #3) 1 tab PRN Q6HRS PRN PO PAIN; Start 12/18/17 at 09:00; Stop 12/18/17 at 12:08; Status DC Ibuprofen (Motrin) 600 mg PRN Q6HRS PRN PO INFLAMMATION; Start 12/18/17 at 09: 00; Stop 12/19/17 at 16:23; Status DC Ondansetron HCl (Zofran) 4 mg PRN Q6HRS PRN IV NAUSEA/VOMITING Last administered on 12/21/17at 12:04; Start 12/18/17 at 09:00 Ondansetron HCl (Zofran Odt) 4 mg PRN Q6HRS PRN PO NAUSEA/VOMITING; Start 12/18 at 09:00; Stop 12/18/17 at 12:08; Status DC Fluticasone Propionate (Flonase) 1 spray DAILY NS Last administered on at 10:36; Start 12/18/17 at 09:00 Acetaminophen/ Hydrocodone Bitart (Lortab 7.5-325/ 15ml Oral Solution) 15 ml PRN Q4HRS PRN PO MODERATE PAIN; Start 12/18/17 at 09:00; Stop 12/19/17 at 16:23 ; Status DC Non-Formulary Medication (Albuterol Sulfate (Proair Hfa Inhaler)) 1 puff PRN Q6HRS PRN INH SHORTNESS OF BREATH; Start 12/18/17 at 09:00; Status UNV Amoxicillin (Amoxil) 750 mg BID PO Last administered on 12/18/17at 21:02; Start 12/18/17 at 10:00; Stop 12/19/17 at 16:23; Status DC Levothyroxine Sodium (Synthroid) 25 mcg DAILY07 PO ; Start 12/18/17 at 10:30; Stop 12/18/17 at 12:08; Status DC Prednisone (Prednisone) 50 mg DAILY PO ; Start 12/18/17 at 10:00; Stop 12/18/17 at 12:08; Status DC Alprazolam (Xanax) 0.25 mg PRN Q8HRS PRN PO ANXIETY / AGITATION; Start at 09:00; Stop 12/19/17 at 08:14; Status DC Zolpidem Tartrate (Ambien) 5 mg PRN QHS PRN PO INSOMNIA; Start 12/18/17 at 09: 00; Stop 12/18/17 at 12:08; Status DC Cetirizine HCl (ZyrTEC) 10 mg DAILY PO ; Start 12/18/17 at 10:00; Stop 12/18/17 at 12:08; Status DC Non-Formulary Medication 1 ea 1X ONCE IV ; Start 12/18/17 at 09:00; Stop at 09:01; Status UNV Potassium Chloride/Dextrose/ Sod Cl 1,000 ml @ 80 mls/hr [id number] IV Last administered on 12/19/17at 10:00; Start 12/18/17 at 09:00; Stop 12/20/17 at 09:07 ; Status DC Albuterol Sulfate (Ventolin Neb Soln) 2.5 mg PRN Q6HRS PRN NEB SHORTNESS OF BREATH Last administered on 12/18/17at 13:12; Start 12/18/17 at 09:30 Iohexol (Omnipaque 300 Mg/ml) 75 ml 1X ONCE IV Last administered on 12/18/17at 10:31; Start 12/18/17 at 10:15; Stop 12/18/17 at 10:16; Status DC Info (CONTRAST GIVEN -- Rx MONITORING) 1 each PRN DAILY PRN MC SEE COMMENTS; Start 12/18/17 at 10:15; Stop 12/20/17 at 10:14; Status DC Levothyroxine Sodium 15 mcg/ Sodium Chloride 5 ml @ 100 mls/hr DAILY IVP Last administered on 12/20/17at 09:41; Start 12/18/17 at 12:30; Stop 12/20/17 at 11:44 ; Status DC Lorazepam (Ativan) 1 mg PRN Q4HRS PRN IV ANXIETY / AGITATION Last administered on 12/22/17at 10:46; Start 12/18/17 at 13:15 Alprazolam (Xanax) 0.25 mg PRN Q8HRS PRN NG ANXIETY / AGITATION Last administered on 12/19/17at 01:13; Start 12/18/17 at 13:15; Stop 12/19/17 at 16:23 ; Status DC Pyridostigmine [place] (Mestinon) 60 mg BID NG Last administered on 12/18/17at 21:01; Start 12/18/17 at 13:00; Stop 12/19/17 at 16:23; Status DC Prednisone (Prednisone) 50 mg DAILY PO Last administered on 12/18/17at 16:03; Start 12/18/17 at 13:00; Stop 12/19/17 at 16:23; Status DC Famotidine (Pepcid) 20 mg QHS PO Last administered on 12/18/17at 21:01; Start at 21:00; Stop 12/19/17 at 16:23; Status DC Calcium Carbonate/ Glycine (Oscal) 500 mg TIDAFTMEAL PO ; Start 12/18/17 at 18: 00; Stop 12/19/17 at 16:23; Status DC Ergocalciferol (Vitamin D2) 50,000 unit MoTh PO ; Start 12/19/17 at 09:00; Stop 12/19/17 at 16:23; Status DC Lidocaine/Sodium Bicarbonate (Buffered Lidocaine 1%) 3 ml STK-MED ONCE .ROUTE ; Start 12/18/17 at 14:32; Stop 12/18/17 at 14:33; Status DC Heparin Sodium (Porcine) (Heparin Sodium) 10,000 unit STK-MED ONCE .ROUTE ; Start 12/18/17 at 14:32; Stop 12/18/17 at 14:33; Status DC Lidocaine/Sodium Bicarbonate (Buffered Lidocaine 1%) 3 ml 1X ONCE INJ Last administered on 12/18/17at 15:15; Start 12/18/17 at 15:15; Stop 12/18/17 at 15:16 ; Status DC Heparin Sodium (Porcine) (Heparin Sodium) 2,200 unit 1X ONCE INT CAT Last administered on 12/18/17at 15:15; Start 12/18/17 at 15:15; Stop 12/18/17 at 15:16 ; Status DC Scopolamine (Transderm-Scop) 1 patch 1X ONCE TD Last administered on at 21:41; Start 12/18/17 at 21:30; Stop 12/19/17 at 16:23; Status DC Albumin Human 1,500 ml @ 0 mls/hr 1X ONCE IV Last administered on 12/19/17at 11:38; Start 12/19/17 at 08:15; Stop 12/19/17 at 08:16; Status DC Heparin Sodium (Porcine) (Heparin Sodium) 10,000 unit STK-MED ONCE .ROUTE ; Start 12/19/17 at 08:40; Stop 12/19/17 at 08:41; Status DC Info (Tpn Per Pharmacy) 1 each PRN DAILY PRN MC SEE COMMENTS Last administered on 12/22/17at 11:32; Start 12/20/17 at 16:30 Pyridostigmine [place] (Regonol) 2.5 mg Q12HR IV Last administered on at 10:43; Start 12/19/17 at 21:00 Methylprednisolone Sodium Succinate (SOLU-Medrol 40MG VIAL) 40 mg Q12HR IV Last administered on 12/22/17at 10:41; Start 12/19/17 at 21:00 Famotidine (Pepcid Vial) 20 mg QHS IVP Last administered on 12/19/17at 21:33; Start 12/19/17 at 21:00; Stop 12/20/17 at 11:44; Status DC Morphine Sulfate (Morphine Sulfate) 2 mg PRN Q2HR PRN IV SEVERE PAIN Last administered on 12/22/17at 10:45; Start 12/19/17 at 23:15 Amino Acids/ Glycerin/ Electrolytes 1,000 ml @ 80 mls/hr [id number] IV Last administered on 12/20/17at 09:57; Start 12/20/17 at 09:30; Stop 12/20/17 at 11:44 ; Status DC Alteplase, Recombinant (Cathflo) 2 mg 1X ONCE IV Last administered on at 12:37; Start 12/20/17 at 11:45; Stop 12/20/17 at 11:46; Status DC Cyclobenzaprine HCl (Flexeril) 5 mg QID PO Last administered on 12/21/17at 09:10 ; Start 12/20/17 at 17:00 Cyclobenzaprine HCl (Flexeril) 10 mg 1X ONCE PO ; Start 12/20/17 at 11:45; Stop 12/20/17 at 11:53; Status DC Levothyroxine Sodium (Synthroid) 25 mcg DAILY07 PO ; Start 12/21/17 at 07:00; Stop 12/21/17 at 07:00; Status DC Levothyroxine Sodium 12.5 mcg/ Sodium Chloride 5 ml @ 100 mls/hr DAILY IVP Last administered on 12/22/17at 10:45; Start 12/21/17 at 09:00 Sodium Chloride 90 meq/Potassium Chloride 50 meq/ Potassium Phosphate 13.6 mmol/ Magnesium Sulfate 5 meq/ Calcium Gluconate 5 meq/ Multivitamins 10 ml/Chromium/ Copper/Manganese/ Seleni/Zn 1 ml/ Total Parenteral Nutrition/Amino Acids/ Dextrose/ Fat Emulsion Intravenous 1,512 ml @ 63 mls/hr TPN CONT IV Last administered on 12/20/17at 20:58; Start 12/20/17 at 22:00; Stop 12/21/17 at 21:59 ; Status DC Albumin Human 1,200 ml @ 0 mls/hr 1X ONCE IV Last administered on 12/21/17at 10:40; Start 12/21/17 at 08:45; Stop 12/21/17 at 08:46; Status DC Heparin Sodium (Porcine) (Heparin Sodium) 10,000 unit STK-MED ONCE .ROUTE ; Start 12/21/17 at 08:50; Stop 12/21/17 at 08:51; Status DC Diphenhydramine HCl (Benadryl) 50 mg STK-MED ONCE .ROUTE ; Start 12/21/17 at 11: 46; Stop 12/21/17 at 11:47; Status DC Diphenhydramine HCl (Benadryl) 50 mg 1X ONCE IVP Last administered on at 11:59; Start 12/21/17 at 12:00; Stop 12/21/17 at 12:01; Status DC Sodium Chloride 90 meq/Potassium Chloride 50 meq/ Potassium Phosphate 13.6 mmol/ Magnesium Sulfate 5 meq/ Calcium Gluconate 5 meq/ Multivitamins 10 ml/Chromium/ Copper/Manganese/ Seleni/Zn 1 ml/ Total Parenteral Nutrition/Amino Acids/ Dextrose/ Fat Emulsion Intravenous 1,512 ml @ 63 mls/hr TPN CONT IV Last administered on 12/21/17at 22:00; Start 12/21/17 at 22:00; Stop 12/22/17 at 21:59 Sodium Chloride 90 meq/Potassium Chloride 50 meq/ Potassium Phosphate 13.6 mmol/ Magnesium Sulfate 5 meq/ Calcium Gluconate 5 meq/ Multivitamins 10 ml/Chromium/ Copper/Manganese/ Seleni/Zn 1 ml/ Total Parenteral Nutrition/Amino Acids/ Dextrose/ Fat Emulsion Intravenous 1,512 ml @ 63 mls/hr TPN CONT IV ; Start at 22:00; Stop 12/23/17 at 21:59 Active Scripts Active Reported Amoxicillin 875 Mg Tablet 1 Tab PO BID Levothyroxine Sodium 25 Mcg Tablet 1 Tab PO DAILY Proair Hfa Inhaler (Albuterol Sulfate) 8.5 Gm Hfa.aer.ad 1 Puff INH PRN Q6HRS PRN [kaitlib fe] Hydrocodone-Apap 7.5-325/15 Soln (Hydrocodone Bit/Acetaminophen) 15 Ml Solution 15 Ml PO PRN Q4HRS PRN Prednisone 50 Mg Tablet 1 Tab PO DAILY Fluticasone Propionate Nasal [place] (Fluticasone Propionate) 16 Gm [place].susp 1 [place] NS DAILY [zoloft] [ativan] Vitals/I & O Vital Sign - Last 24 Hours 12/21/17 12/21/17 12/21/17 12/22/17 19:46 20:00 23:45 00:03 Temp 98.0 98.0 98.0 98.0 Pulse 113 114 Resp 18 20 17 B/P (MAP) 134/84 (101) 146/88 (107) Pulse Ox 98 97 O2 Delivery Room Air Room Air Room Air Room Air 12/22/17 12/22/17 12/22/17 12/22/17 03:52 04:37 05:10 07:33 Temp 98.4 97.5 98.4 97.5 Pulse 122 97 Resp 20 17 17 20 B/P (MAP) 153/87 (109) 139/85 (103) Pulse Ox 97 95 O2 Delivery Room Air Room Air Room Air Room Air 12/22/17 12/22/17 12/22/17 12/22/17 08:00 10:45 11:17 15:40 Temp 97.7 97.7 97.7 97.7 Pulse 117 113 Resp 18 19 19 B/P (MAP) 144/104 (117) 153/94 (113) Pulse Ox 97 95 O2 Delivery Room Air Room Air Room Air Room Air Intake and Output 12/21/17 12/21/17 12/22/17 15:00 23:00 07:00 Intake Total 0 ml 0 ml Balance 0 ml 0 ml BEENA GANNON MD Dec 22, 2017 18:20
[2017-12-22 19:15] VITALS: BP 151/82
[2017-12-22] MEDS ORDERED: DEXTROSE 70% IV SCH ×10 (22:00)
[2017-12-22] MEDS ORDERED: [UNRECOGNIZED DRUG - OTHER] IV SCH ×10 (22:00)
[2017-12-22] MEDS ORDERED: AMINO ACIDS IV SCH ×10 (22:00)
[2017-12-22] MEDS ORDERED: TOTAL PARENTERAL NUTRITION IV SCH ×10 (22:00)
[2017-12-22 23:15] VITALS: BP 147/76
[2017-12-23] VITALS (7 sets, daily range): BP systolic 131–156; BP diastolic 80–95
[2017-12-23] MEDS: MORPHINE SULFATE 2 MG/ML VIAL. IV PRN ×5 (01:33→21:31)
[2017-12-23 06:47] LABS: HEMATOCRIT 45.5 % (36.0-47.0); HEMOGLOBIN 15.4 g/dL (12.0-15.5); RED BLOOD COUNT 5.36 x10^6/uL (3.50-5.40); RED CELL DISTRIBUTION WIDTH 12.5 % (11.5-14.5); WHITE BLOOD COUNT 18.4 x10^3/uL (4.0-11.0)
[2017-12-23 07:08] LABS: ALBUMIN 3.6 g/dL (3.4-5.0); ALBUMIN/GLOBULIN RATIO 1.4 (1.0-1.7); CALCIUM 9.1 mg/dL (8.5-10.1); CREATININE 0.5 mg/dL (0.6-1.0); GFR 152.9; MAGNESIUM 2.2 mg/dL (1.8-2.4); POTASSIUM 4.2 mmol/L (3.5-5.1); TOTAL BILIRUBIN 0.5 mg/dL (0.2-1.0); TOTAL PROTEIN 6.2 g/dL (6.4-8.2)
[2017-12-23] MEDS: CYCLOBENZAPRINE 10 MG TABLET. PO SCH ×4 (08:03→19:31)
[2017-12-23] MEDS: FLUTICASONE 50MCG/NASAL SPRAY 16GM BOTTLE. NS SCH (08:21)
[2017-12-23] MEDS: NORMAL SALINE IVP SCH (08:27)
[2017-12-23] MEDS: LEVOTHYROXINE SODIUM IVP SCH (08:27)
[2017-12-23] MEDS: methylPREDNISolone SOD SUCC PF 40 MG/ML VIAL. IV SCH ×2 (08:29→21:04)
[2017-12-23] MEDS: PYRIDOSTIGMINE BROMIDE 10 MG/2 ML AMPUL. IV SCH ×2 (08:31→21:02)
[2017-12-23 08:54] LABS: PROTHROMBIN TIME PATIENT 14.9 SEC (11.7-14.0)
--- NOTE | 2017-12-23 10:51 | PDOC ---
PROGRESS NOTES Assessment Problems Medical Problems: (1) Diplopia Status: Acute (2) Marijuana abuse Status: Acute (3) Myasthenia gravis with acute exacerbation Status: Acute (4) Neck muscle weakness Status: Acute (5) RUE weakness Status: Acute (6) Sinusitis Status: Acute Myasthenia gravis, improved with steroids and [address] negative for thymoma Myasthenia serology pending. Also has Eze's thyroiditis Also has anxiety disorder Plan Speech therapy Monitor negative inspiratory force Plasmapheresis QOD, planning on today and one more on 12/25, then reassess IV steroids and pyridostigmine Subjective She is feeling much better Objective Vital Signs Date Time Temp Pulse Resp B/P (MAP) Pulse Ox O2 Delivery O2 Flow Rate FiO2 12/23/17 07:31 Room Air 12/23/17 07:00 97.7 87 20 156/95 (115) 94 97.7 Intake and Output 12/23/17 07:00 Intake Total 0 ml Balance 0 ml Intake Oral 0 ml # Voids 6 PHYSICAL EXAM Alert. Oriented to time, place and person. PERRL. EOMI. CN: no focal findings. no diplopia. Voice is stronger Muscle tone: normal. Muscle strength: 5/5, Right arm much better DTR: 2+ Plantar reflex: Flexor Gait: not examined in bed. Sensory exam: no abnormal findings. No cerebellar signs elicited. Review of Relevant I have reviewed the following items maliha (where applicable) has been applied. Labs Laboratory Tests Test 12/22/17 04:40 12/22/17 14:40 12/23/17 06:30 12/23/17 08:30 Sodium Level 141 mmol/L (136-145) 140 mmol/L (136-145) Potassium Level 4.0 mmol/L (3.5-5.1) 4.2 mmol/L (3.5-5.1) Chloride Level 104 mmol/L (98-107) 103 mmol/L (98-107) Carbon Dioxide Level 29 mmol/L (21-32) 31 mmol/L (21-32) Anion Gap 8 (6-14) 6 (6-14) Blood Urea Nitrogen 16 mg/dL (7-20) 17 mg/dL (7-20) Creatinine 0.6 mg/dL (0.6-1.0) 0.5 mg/dL (0.6-1.0) Estimated GFR (Cockcroft-Gault) 123.9 152.9 Glucose Level 171 mg/dL (70-99) 196 mg/dL (70-99) Calcium Level 8.4 mg/dL (8.5-10.1) 9.1 mg/dL (8.5-10.1) Fibrinogen 120 mg/dL (200-440) 121 mg/dL (200-440) White Blood Count 18.4 x10^3/uL (4.0-11.0) Red Blood Count 5.36 x10^6/uL (3.50-5.40) Hemoglobin 15.4 g/dL (12.0-15.5) Hematocrit 45.5 % (36.0-47.0) Mean Corpuscular Volume 85 fL (79-100) Mean Corpuscular Hemoglobin 29 pg (25-35) Mean Corpuscular Hemoglobin Concent 34 g/dL (31-37) Red Cell Distribution Width 12.5 % (11.5-14.5) Platelet Count 114 x10^3/uL (140-400) BUN/Creatinine Ratio 34 (6-20) Magnesium Level 2.2 mg/dL (1.8-2.4) Total Bilirubin 0.5 mg/dL (0.2-1.0) Aspartate Amino Transf (AST/SGOT) 44 U/L (15-37) Alanine Aminotransferase (ALT/SGPT) 105 U/L (14-59) Alkaline Phosphatase 35 U/L (46-116) Total Protein 6.2 g/dL (6.4-8.2) Albumin 3.6 g/dL (3.4-5.0) Albumin/Globulin Ratio 1.4 (1.0-1.7) Prothrombin Time 14.9 SEC (11.7-14.0) Prothromb Time International Ratio 1.2 (0.8-1.1) Activated Partial Thromboplast Time 26 SEC (24-38) Laboratory Tests Test 12/22/17 14:40 12/23/17 06:30 12/23/17 08:30 Fibrinogen 120 mg/dL (200-440) 121 mg/dL (200-440) White Blood Count 18.4 x10^3/uL (4.0-11.0) Red Blood Count 5.36 x10^6/uL (3.50-5.40) Hemoglobin 15.4 g/dL (12.0-15.5) Hematocrit 45.5 % (36.0-47.0) Mean Corpuscular Volume 85 fL (79-100) Mean Corpuscular Hemoglobin 29 pg (25-35) Mean Corpuscular Hemoglobin Concent 34 g/dL (31-37) Red Cell Distribution Width 12.5 % (11.5-14.5) Platelet Count 114 x10^3/uL (140-400) Sodium Level 140 mmol/L (136-145) Potassium Level 4.2 mmol/L (3.5-5.1) Chloride Level 103 mmol/L (98-107) Carbon Dioxide Level 31 mmol/L (21-32) Anion Gap 6 (6-14) Blood Urea Nitrogen 17 mg/dL (7-20) Creatinine 0.5 mg/dL (0.6-1.0) Estimated GFR (Cockcroft-Gault) 152.9 BUN/Creatinine Ratio 34 (6-20) Glucose Level 196 mg/dL (70-99) Calcium Level 9.1 mg/dL (8.5-10.1) Magnesium Level 2.2 mg/dL (1.8-2.4) Total Bilirubin 0.5 mg/dL (0.2-1.0) Aspartate Amino Transf (AST/SGOT) 44 U/L (15-37) Alanine Aminotransferase (ALT/SGPT) 105 U/L (14-59) Alkaline Phosphatase 35 U/L (46-116) Total Protein 6.2 g/dL (6.4-8.2) Albumin 3.6 g/dL (3.4-5.0) Albumin/Globulin Ratio 1.4 (1.0-1.7) Prothrombin Time 14.9 SEC (11.7-14.0) Prothromb Time International Ratio 1.2 (0.8-1.1) Activated Partial Thromboplast Time 26 SEC (24-38) Medications Current Medications Meclizine HCl (Antivert) 25 mg 1X ONCE PO Last administered on 12/17/17at 20:00 ; Start 12/17/17 at 20:00; Stop 12/17/17 at 20:01; Status DC Sodium Chloride 1,000 ml @ 1,000 mls/hr 1X ONCE IV Last administered on at 20:35; Start 12/17/17 at 20:15; Stop 12/17/17 at 21:14; Status DC Ketorolac Tromethamine (Toradol 15mg Vial) 15 mg 1X ONCE IV Last administered on 12/17/17at 20:36; Start 12/17/17 at 20:15; Stop 12/17/17 at 20:16; Status DC Diphenhydramine HCl (Benadryl) 25 mg 1X ONCE PO Last administered on at 02:16; Start 12/18/17 at 02:15; Stop 12/18/17 at 02:18; Status DC Acetaminophen (Tylenol) 500 mg PRN Q6HRS PRN PO MILD PAIN / TEMP; Start at 09:00 Acetaminophen/ Codeine Phosphate (Tylenol #3) 1 tab PRN Q6HRS PRN PO PAIN; Start 12/18/17 at 09:00; Stop 12/18/17 at 12:08; Status DC Ibuprofen (Motrin) 600 mg PRN Q6HRS PRN PO INFLAMMATION; Start 12/18/17 at 09: 00; Stop 12/19/17 at 16:23; Status DC Ondansetron HCl (Zofran) 4 mg PRN Q6HRS PRN IV NAUSEA/VOMITING Last administered on 12/21/17at 12:04; Start 12/18/17 at 09:00 Ondansetron HCl (Zofran Odt) 4 mg PRN Q6HRS PRN PO NAUSEA/VOMITING; Start 12/18 at 09:00; Stop 12/18/17 at 12:08; Status DC Fluticasone Propionate (Flonase) 1 spray DAILY NS Last administered on at 08:21; Start 12/18/17 at 09:00 Acetaminophen/ Hydrocodone Bitart (Lortab 7.5-325/ 15ml Oral Solution) 15 ml PRN Q4HRS PRN PO MODERATE PAIN; Start 12/18/17 at 09:00; Stop 12/19/17 at 16:23 ; Status DC Non-Formulary Medication (Albuterol Sulfate (Proair Hfa Inhaler)) 1 puff PRN Q6HRS PRN INH SHORTNESS OF BREATH; Start 12/18/17 at 09:00; Status UNV Amoxicillin (Amoxil) 750 mg BID PO Last administered on 12/18/17at 21:02; Start 12/18/17 at 10:00; Stop 12/19/17 at 16:23; Status DC Levothyroxine Sodium (Synthroid) 25 mcg DAILY07 PO ; Start 12/18/17 at 10:30; Stop 12/18/17 at 12:08; Status DC Prednisone (Prednisone) 50 mg DAILY PO ; Start 12/18/17 at 10:00; Stop 12/18/17 at 12:08; Status DC Alprazolam (Xanax) 0.25 mg PRN Q8HRS PRN PO ANXIETY / AGITATION; Start at 09:00; Stop 12/19/17 at 08:14; Status DC Zolpidem Tartrate (Ambien) 5 mg PRN QHS PRN PO INSOMNIA; Start 12/18/17 at 09: 00; Stop 12/18/17 at 12:08; Status DC Cetirizine HCl (ZyrTEC) 10 mg DAILY PO ; Start 12/18/17 at 10:00; Stop 12/18/17 at 12:08; Status DC Non-Formulary Medication 1 ea 1X ONCE IV ; Start 12/18/17 at 09:00; Stop at 09:01; Status UNV Potassium Chloride/Dextrose/ Sod Cl 1,000 ml @ 80 mls/hr [id number] IV Last administered on 12/19/17at 10:00; Start 12/18/17 at 09:00; Stop 12/20/17 at 09:07 ; Status DC Albuterol Sulfate (Ventolin Neb Soln) 2.5 mg PRN Q6HRS PRN NEB SHORTNESS OF BREATH Last administered on 12/18/17at 13:12; Start 12/18/17 at 09:30 Iohexol (Omnipaque 300 Mg/ml) 75 ml 1X ONCE IV Last administered on 12/18/17at 10:31; Start 12/18/17 at 10:15; Stop 12/18/17 at 10:16; Status DC Info (CONTRAST GIVEN -- Rx MONITORING) 1 each PRN DAILY PRN MC SEE COMMENTS; Start 12/18/17 at 10:15; Stop 12/20/17 at 10:14; Status DC Levothyroxine Sodium 15 mcg/ Sodium Chloride 5 ml @ 100 mls/hr DAILY IVP Last administered on 12/20/17at 09:41; Start 12/18/17 at 12:30; Stop 12/20/17 at 11:44 ; Status DC Lorazepam (Ativan) 1 mg PRN Q4HRS PRN IV ANXIETY / AGITATION Last administered on 12/23/17at 06:43; Start 12/18/17 at 13:15 Alprazolam (Xanax) 0.25 mg PRN Q8HRS PRN NG ANXIETY / AGITATION Last administered on 12/19/17at 01:13; Start 12/18/17 at 13:15; Stop 12/19/17 at 16:23 ; Status DC Pyridostigmine [place] (Mestinon) 60 mg BID NG Last administered on 12/18/17at 21:01; Start 12/18/17 at 13:00; Stop 12/19/17 at 16:23; Status DC Prednisone (Prednisone) 50 mg DAILY PO Last administered on 12/18/17at 16:03; Start 12/18/17 at 13:00; Stop 12/19/17 at 16:23; Status DC Famotidine (Pepcid) 20 mg QHS PO Last administered on 12/18/17at 21:01; Start at 21:00; Stop 12/19/17 at 16:23; Status DC Calcium Carbonate/ Glycine (Oscal) 500 mg TIDAFTMEAL PO ; Start 12/18/17 at 18: 00; Stop 12/19/17 at 16:23; Status DC Ergocalciferol (Vitamin D2) 50,000 unit MoTh PO ; Start 12/19/17 at 09:00; Stop 12/19/17 at 16:23; Status DC Lidocaine/Sodium Bicarbonate (Buffered Lidocaine 1%) 3 ml STK-MED ONCE .ROUTE ; Start 12/18/17 at 14:32; Stop 12/18/17 at 14:33; Status DC Heparin Sodium (Porcine) (Heparin Sodium) 10,000 unit STK-MED ONCE .ROUTE ; Start 12/18/17 at 14:32; Stop 12/18/17 at 14:33; Status DC Lidocaine/Sodium Bicarbonate (Buffered Lidocaine 1%) 3 ml 1X ONCE INJ Last administered on 12/18/17at 15:15; Start 12/18/17 at 15:15; Stop 12/18/17 at 15:16 ; Status DC Heparin Sodium (Porcine) (Heparin Sodium) 2,200 unit 1X ONCE INT CAT Last administered on 12/18/17at 15:15; Start 12/18/17 at 15:15; Stop 12/18/17 at 15:16 ; Status DC Scopolamine (Transderm-Scop) 1 patch 1X ONCE TD Last administered on at 21:41; Start 12/18/17 at 21:30; Stop 12/19/17 at 16:23; Status DC Albumin Human 1,500 ml @ 0 mls/hr 1X ONCE IV Last administered on 12/19/17at 11:38; Start 12/19/17 at 08:15; Stop 12/19/17 at 08:16; Status DC Heparin Sodium (Porcine) (Heparin Sodium) 10,000 unit STK-MED ONCE .ROUTE ; Start 12/19/17 at 08:40; Stop 12/19/17 at 08:41; Status DC Info (Tpn Per Pharmacy) 1 each PRN DAILY PRN MC SEE COMMENTS Last administered on 12/22/17at 11:32; Start 12/20/17 at 16:30 Pyridostigmine [place] (Regonol) 2.5 mg Q12HR IV Last administered on at 08:31; Start 12/19/17 at 21:00 Methylprednisolone Sodium Succinate (SOLU-Medrol 40MG VIAL) 40 mg Q12HR IV Last administered on 12/23/17at 08:29; Start 12/19/17 at 21:00 Famotidine (Pepcid Vial) 20 mg QHS IVP Last administered on 12/19/17at 21:33; Start 12/19/17 at 21:00; Stop 12/20/17 at 11:44; Status DC Morphine Sulfate (Morphine Sulfate) 2 mg PRN Q2HR PRN IV SEVERE PAIN Last administered on 12/23/17at 06:43; Start 12/19/17 at 23:15 Amino Acids/ Glycerin/ Electrolytes 1,000 ml @ 80 mls/hr [id number] IV Last administered on 12/20/17at 09:57; Start 12/20/17 at 09:30; Stop 12/20/17 at 11:44 ; Status DC Alteplase, Recombinant (Cathflo) 2 mg 1X ONCE IV Last administered on at 12:37; Start 12/20/17 at 11:45; Stop 12/20/17 at 11:46; Status DC Cyclobenzaprine HCl (Flexeril) 5 mg QID PO Last administered on 12/21/17at 09:10 ; Start 12/20/17 at 17:00 Cyclobenzaprine HCl (Flexeril) 10 mg 1X ONCE PO ; Start 12/20/17 at 11:45; Stop 12/20/17 at 11:53; Status DC Levothyroxine Sodium (Synthroid) 25 mcg DAILY07 PO ; Start 12/21/17 at 07:00; Stop 12/21/17 at 07:00; Status DC Levothyroxine Sodium 12.5 mcg/ Sodium Chloride 5 ml @ 100 mls/hr DAILY IVP Last administered on 12/23/17at 08:27; Start 12/21/17 at 09:00 Sodium Chloride 90 meq/Potassium Chloride 50 meq/ Potassium Phosphate 13.6 mmol/ Magnesium Sulfate 5 meq/ Calcium Gluconate 5 meq/ Multivitamins 10 ml/Chromium/ Copper/Manganese/ Seleni/Zn 1 ml/ Total Parenteral Nutrition/Amino Acids/ Dextrose/ Fat Emulsion Intravenous 1,512 ml @ 63 mls/hr TPN CONT IV Last administered on 12/20/17at 20:58; Start 12/20/17 at 22:00; Stop 12/21/17 at 21:59 ; Status DC Albumin Human 1,200 ml @ 0 mls/hr 1X ONCE IV Last administered on 12/21/17at 10:40; Start 12/21/17 at 08:45; Stop 12/21/17 at 08:46; Status DC Heparin Sodium (Porcine) (Heparin Sodium) 10,000 unit STK-MED ONCE .ROUTE ; Start 12/21/17 at 08:50; Stop 12/21/17 at 08:51; Status DC Diphenhydramine HCl (Benadryl) 50 mg STK-MED ONCE .ROUTE ; Start 12/21/17 at 11: 46; Stop 12/21/17 at 11:47; Status DC Diphenhydramine HCl (Benadryl) 50 mg 1X ONCE IVP Last administered on at 11:59; Start 12/21/17 at 12:00; Stop 12/21/17 at 12:01; Status DC Sodium Chloride 90 meq/Potassium Chloride 50 meq/ Potassium Phosphate 13.6 mmol/ Magnesium Sulfate 5 meq/ Calcium Gluconate 5 meq/ Multivitamins 10 ml/Chromium/ Copper/Manganese/ Seleni/Zn 1 ml/ Total Parenteral Nutrition/Amino Acids/ Dextrose/ Fat Emulsion Intravenous 1,512 ml @ 63 mls/hr TPN CONT IV Last administered on 12/21/17at 22:00; Start 12/21/17 at 22:00; Stop 12/22/17 at 21:59 ; Status DC Sodium Chloride 90 meq/Potassium Chloride 50 meq/ Potassium Phosphate 13.6 mmol/ Magnesium Sulfate 5 meq/ Calcium Gluconate 5 meq/ Multivitamins 10 ml/Chromium/ Copper/Manganese/ Seleni/Zn 1 ml/ Total Parenteral Nutrition/Amino Acids/ Dextrose/ Fat Emulsion Intravenous 1,512 ml @ 63 mls/hr TPN CONT IV Last administered on 12/22/17at 21:26; Start 12/22/17 at 22:00; Stop 12/23/17 at 21:59 Active Scripts Active Reported Amoxicillin 875 Mg Tablet 1 Tab PO BID Levothyroxine Sodium 25 Mcg Tablet 1 Tab PO DAILY Proair Hfa Inhaler (Albuterol Sulfate) 8.5 Gm Hfa.aer.ad 1 Puff INH PRN Q6HRS PRN [kaitlib fe] Hydrocodone-Apap 7.5-325/15 Soln (Hydrocodone Bit/Acetaminophen) 15 Ml Solution 15 Ml PO PRN Q4HRS PRN Prednisone 50 Mg Tablet 1 Tab PO DAILY Fluticasone Propionate Nasal [place] (Fluticasone Propionate) 16 Gm [place].susp 1 [place] NS DAILY [zoloft] [ativan] Vitals/I & O Vital Sign - Last 24 Hours 12/22/17 12/22/17 12/22/17 12/22/17 11:17 15:40 19:15 20:00 Temp 97.7 97.7 98.4 97.7 97.7 98.4 Pulse 117 113 100 Resp 19 19 18 B/P (MAP) 144/104 (117) 153/94 (113) 151/82 (105) Pulse Ox 97 95 95 O2 Delivery Room Air Room Air Room Air Room Air 12/22/17 12/22/17 12/23/17 12/23/17 21:40 23:15 01:33 02:05 Temp 97.7 97.7 Pulse 93 Resp 17 18 17 17 B/P (MAP) 147/76 (99) Pulse Ox 95 O2 Delivery Room Air Room Air Room Air 12/23/17 12/23/17 12/23/17 12/23/17 03:15 06:43 07:00 07:16 Temp 97.5 97.7 97.5 97.7 Pulse 90 87 Resp 18 17 20 B/P (MAP) 151/91 (111) 156/95 (115) Pulse Ox 96 94 O2 Delivery Room Air Room Air Room Air Room Air 12/23/17 07:31 O2 Delivery Room Air Intake and Output 12/22/17 12/22/17 12/23/17 15:00 23:00 07:00 Intake Total 0 ml 0 ml Balance 0 ml 0 ml GAURAV BARONE MD Dec 23, 2017 10:51
[2017-12-23] MEDS: TPN PER PHARMACY MC PRN (11:23)
[2017-12-23] MEDS ORDERED: diphenhydrAMINE 50 MG/ML VIAL IVP ONE (12:00)
[2017-12-23] MEDS ORDERED: ALBUMIN HUMAN 5% 1,500 ML IV ONE (12:30)
--- NOTE | 2017-12-23 14:02 | PDOC ---
SUBJECTIVE ROS Pt reports feeling better, but nervous during TPE OBJECTIVE Vital Signs Vital Signs Date Time Temp Pulse Resp B/P (MAP) Pulse Ox O2 Delivery O2 Flow Rate FiO2 12/23/17 11:35 Room Air 12/23/17 11:00 97.7 107 24 131/92 (105) 97 97.7 I & 0 Intake and Output 12/23/17 07:00 Intake Total 0 ml Balance 0 ml Intake Oral 0 ml # Voids 6 PHYSICAL EXAM Physical Exam Gen-- NAD HEENT- OM moist Neuro-- as per neurology Lungs CTA Bilat CV RRR Abdomen -Soft , NT DIAGNOSIS/ASSESSMENT Assessment & Plan Myasthenia gravis- improved with steroids and 2 plasmaphereses 3rd Today , neuro following , continue QOD as per neuro , One More on 12/[address] negative for thymoma,Myasthenia serology pending. 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 COMMENT/RELEVANT DATA Meds Current Medications Medications (Trade) Dose Ordered Sig/Guido Start Time Stop Time Status Last Admin Dose Admin Acetaminophen (Tylenol) 500 mg PRN Q6HRS PRN 12/18/17 09:00 Acetaminophen/ Codeine Phosphate (Tylenol #3) 1 tab PRN Q6HRS PRN 12/18/17 09:00 12/18/17 12:08 DC Acetaminophen/ Hydrocodone Bitart (Lortab 7.5-325/ 15ml Oral Solution) 15 ml PRN Q4HRS PRN 12/18/17 09:00 12/19/17 16:23 DC Albumin Human 1,500 ml @ 125 mls/hr 1X ONCE 12/23/17 12:30 12/24/17 00:29 Albuterol Sulfate (Ventolin Neb Soln) 2.5 mg PRN Q6HRS PRN 12/18/17 09:30 12/18/17 13:12 2.5 MG Alprazolam (Xanax) 0.25 mg PRN Q8HRS PRN 12/18/17 13:15 12/19/17 16:23 DC 12/19/17 01:13 0.25 MG Alteplase, Recombinant (Cathflo) 2 mg 1X ONCE 12/20/17 11:45 12/20/17 11:46 DC 12/20/17 12:37 2 MG Amino Acids/ Glycerin/ Electrolytes 1,000 ml @ 80 mls/hr [id number] 12/20/17 09:30 12/20/17 11:44 DC 12/20/17 09:57 80 MLS/HR Amoxicillin (Amoxil) 750 mg BID 12/18/17 10:00 12/19/17 16:23 DC 12/18/17 21:02 750 MG Calcium Carbonate/ Glycine (Oscal) 500 mg TIDAFTMEAL 12/18/17 18:00 12/19/17 16:23 DC Cetirizine HCl (ZyrTEC) 10 mg DAILY 12/18/17 10:00 12/18/17 12:08 DC Cyclobenzaprine HCl (Flexeril) 10 mg 1X ONCE 12/20/17 11:45 12/20/17 11:53 DC Diphenhydramine HCl (Benadryl) 50 mg 1X ONCE 12/23/17 12:00 12/23/17 12:23 DC Ergocalciferol (Vitamin D2) 50,000 unit MoTh 12/19/17 09:00 12/19/17 16:23 DC Famotidine (Pepcid Vial) 20 mg QHS 12/23/17 21:00 Famotidine (Pepcid) 20 mg QHS 12/18/17 21:00 12/19/17 16:23 DC 12/18/17 21:01 20 MG Fluticasone Propionate (Flonase) 1 spray DAILY 12/18/17 09:00 12/23/17 08:21 1 SPRAY Heparin Sodium (Porcine) (Heparin Sodium) 10,000 unit STK-MED ONCE 12/21/17 08:50 12/21/17 08:51 DC Ibuprofen (Motrin) 600 mg PRN Q6HRS PRN 12/18/17 09:00 12/19/17 16:23 DC Info (CONTRAST GIVEN -- Rx MONITORING) 1 each PRN DAILY PRN 12/18/17 10:15 12/20/17 10:14 DC Info (Tpn Per Pharmacy) 1 each PRN DAILY PRN 12/20/17 16:30 12/23/17 11:23 1 EACH Iohexol (Omnipaque 300 Mg/ml) 75 ml 1X ONCE 12/18/17 10:15 12/18/17 10:16 DC 12/18/17 10:31 75 ML Ketorolac Tromethamine (Toradol 15mg Vial) 15 mg 1X ONCE 12/17/17 20:15 12/17/17 20:16 DC 12/17/17 20:36 15 MG Levothyroxine Sodium (Synthroid) 25 mcg DAILY07 12/21/17 07:00 12/21/17 07:00 DC Levothyroxine Sodium 12.5 mcg/ Sodium Chloride 5 ml @ 100 mls/hr DAILY 12/21/17 09:00 12/23/17 08:27 100 MLS/HR Levothyroxine Sodium 15 mcg/ Sodium Chloride 5 ml @ 100 mls/hr DAILY 12/18/17 12:30 12/20/17 11:44 DC 12/20/17 09:41 100 MLS/HR Lidocaine/Sodium Bicarbonate (Buffered Lidocaine 1%) 3 ml 1X ONCE 12/18/17 15:15 12/18/17 15:16 DC 12/18/17 15:15 4 ML Lorazepam (Ativan) 1 mg PRN Q4HRS PRN 12/18/17 13:15 12/23/17 06:43 1 MG Meclizine HCl (Antivert) 25 mg 1X ONCE 12/17/17 20:00 12/17/17 20:01 DC 12/17/17 20:00 25 MG Methylprednisolone Sodium Succinate (SOLU-Medrol 40MG VIAL) 40 mg Q12HR 12/19/17 21:00 12/23/17 08:29 40 MG Morphine Sulfate (Morphine Sulfate) 2 mg PRN Q2HR PRN 12/19/17 23:15 12/23/17 11:12 2 MG Non-Formulary Medication 1 ea 1X ONCE 12/18/17 09:00 12/18/17 09:01 UNV Non-Formulary Medication (Albuterol Sulfate (Proair Hfa Inhaler)) 1 puff PRN Q6HRS PRN 12/18/17 09:00 UNV Ondansetron HCl (Zofran Odt) 4 mg PRN Q6HRS PRN 12/18/17 09:00 12/18/17 12:08 DC Ondansetron HCl (Zofran) 4 mg PRN Q6HRS PRN 12/18/17 09:00 12/21/17 12:04 4 MG Potassium Chloride/Dextrose/ Sod Cl 1,000 ml @ 80 mls/hr [id number] 12/18/17 09:00 12/20/17 09:07 DC 12/19/17 10:00 80 MLS/HR Prednisone (Prednisone) 50 mg DAILY 12/18/17 13:00 12/19/17 16:23 DC 12/18/17 16:03 50 MG Pyridostigmine [place] (Mestinon) 60 mg BID 12/18/17 13:00 12/19/17 16:23 DC 12/18/17 21:01 60 MG Pyridostigmine [place] (Regonol) 2.5 mg Q12HR 12/19/17 21:00 12/23/17 08:31 2.5 MG Scopolamine (Transderm-Scop) 1 patch 1X ONCE 12/18/17 21:30 12/19/17 16:23 DC 12/18/17 21:41 1 PATCH Sodium Chloride 90 meq/Potassium Chloride 50 meq/ Potassium Phosphate 13.6 mmol/Magnesium Sulfate 5 meq/ Calcium Gluconate 5 meq/ Multivitamins 10 ml/Chromium/ Copper/Manganese/ Seleni/Zn 1 ml/ Total Parenteral Nutrition/Amino Acids/Dextrose/ Fat Emulsion Intravenous 1,512 ml @ 63 mls/hr TPN CONT 12/23/17 22:00 12/24/17 21:59 Zolpidem Tartrate (Ambien) 5 mg PRN QHS PRN 12/18/17 09:00 12/18/17 12:08 DC Lab Laboratory Tests Test 12/22/17 14:40 12/23/17 06:30 12/23/17 08:30 Fibrinogen 120 mg/dL (200-440) 121 mg/dL (200-440) White Blood Count 18.4 x10^3/uL (4.0-11.0) Red Blood Count 5.36 x10^6/uL (3.50-5.40) Hemoglobin 15.4 g/dL (12.0-15.5) Hematocrit 45.5 % (36.0-47.0) Mean Corpuscular Volume 85 fL (79-100) Mean Corpuscular Hemoglobin 29 pg (25-35) Mean Corpuscular Hemoglobin Concent 34 g/dL (31-37) Red Cell Distribution Width 12.5 % (11.5-14.5) Platelet Count 114 x10^3/uL (140-400) Sodium Level 140 mmol/L (136-145) Potassium Level 4.2 mmol/L (3.5-5.1) Chloride Level 103 mmol/L (98-107) Carbon Dioxide Level 31 mmol/L (21-32) Anion Gap 6 (6-14) Blood Urea Nitrogen 17 mg/dL (7-20) Creatinine 0.5 mg/dL (0.6-1.0) Estimated GFR (Cockcroft-Gault) 152.9 BUN/Creatinine Ratio 34 (6-20) Glucose Level 196 mg/dL (70-99) Calcium Level 9.1 mg/dL (8.5-10.1) Magnesium Level 2.2 mg/dL (1.8-2.4) Total Bilirubin 0.5 mg/dL (0.2-1.0) Aspartate Amino Transf (AST/SGOT) 44 U/L (15-37) Alanine Aminotransferase (ALT/SGPT) 105 U/L (14-59) Alkaline Phosphatase 35 U/L (46-116) Total Protein 6.2 g/dL (6.4-8.2) Albumin 3.6 g/dL (3.4-5.0) Albumin/Globulin Ratio 1.4 (1.0-1.7) Prothrombin Time 14.9 SEC (11.7-14.0) Prothromb Time International Ratio 1.2 (0.8-1.1) Activated Partial Thromboplast Time 26 SEC (24-38) Results All relevant outside records, renal labs, imaging studies, telemetry/EKG's were reviewed. THERESA TOLBERT MD Dec 23, 2017 14:02
[2017-12-23] MEDS: ONDANSETRON PF 4 MG/2 ML VIAL. IV PRN (18:00)
[2017-12-23] MEDS ORDERED: oxyCODONE/APAP 5/325 1 TAB TABLET PO PRN (20:45)
[2017-12-23] MEDS: FAMOTIDINE 20 MG/2 ML VIAL IVP SCH (21:07)
--- NOTE | 2017-12-23 21:11 | PDOC ---
PROGRESS NOTES Chief Complaint Chief Complaint myasthenia gravis - new diagnosis Diplopia Dysphagia - still has globus sensation today Stiff neck getting a little better Bruising noted in bilateral axilla today and on bilateral anterior tibia History of Present Illness History of Present Illness pleasant more alert today , feels better, has started plasmapheresis 2 treatment and the third is today,-has an indwelling right subclavian catheter Still stiff neck, diplopia improved now on and off , right side hand weakness is better Had some issues with Dobbhoff kept on coiling hence now PICC line on the left and TPN going. She will not consent to NGT again She is able to spit up her secretions-doing well with NIF Does admit to increasing weakness or fatigability upon repetitive motion which is consistent with myasthenia gravis. New bruising on her bilateral shins and axilla noted today. Plan: pyridostigmine and IV steroids started Plasmapheresis per renal/neurology-claims will get 5 doses every other day hence will be here at least until 12/27 Thyroid is IV because of swallow issues-still nothing by mouth DTRs are +2 IV Pepcid since swallow issues and is nothing by mouth TPN tolerated - discussed considering surgical consultation and J-tube, they wish to think about it. Discussed in detail with patient and mother, bedside Vitals Vitals Vital Signs Date Time Temp Pulse Resp B/P (MAP) Pulse Ox O2 Delivery O2 Flow Rate FiO2 12/23/17 19:10 98.1 96 18 150/80 (103) 96 Room Air 98.1 Physical Exam General: Alert, Oriented X3, Cooperative, No acute distress Heart: Regular rate, Normal S1, Normal S2 Abdomen: Normal bowel sounds, Soft, No tenderness, No hepatosplenomegaly, No masses Extremities: No clubbing, No cyanosis Skin: No rashes, No breakdown, No significant lesion, Other (lipoma at the nape ) Labs LABS Laboratory Tests Test 12/23/17 06:30 12/23/17 08:30 White Blood Count 18.4 x10^3/uL (4.0-11.0) Red Blood Count 5.36 x10^6/uL (3.50-5.40) Hemoglobin 15.4 g/dL (12.0-15.5) Hematocrit 45.5 % (36.0-47.0) Mean Corpuscular Volume 85 fL (79-100) Mean Corpuscular Hemoglobin 29 pg (25-35) Mean Corpuscular Hemoglobin Concent 34 g/dL (31-37) Red Cell Distribution Width 12.5 % (11.5-14.5) Platelet Count 114 x10^3/uL (140-400) Sodium Level 140 mmol/L (136-145) Potassium Level 4.2 mmol/L (3.5-5.1) Chloride Level 103 mmol/L (98-107) Carbon Dioxide Level 31 mmol/L (21-32) Anion Gap 6 (6-14) Blood Urea Nitrogen 17 mg/dL (7-20) Creatinine 0.5 mg/dL (0.6-1.0) Estimated GFR (Cockcroft-Gault) 152.9 BUN/Creatinine Ratio 34 (6-20) Glucose Level 196 mg/dL (70-99) Calcium Level 9.1 mg/dL (8.5-10.1) Magnesium Level 2.2 mg/dL (1.8-2.4) Total Bilirubin 0.5 mg/dL (0.2-1.0) Aspartate Amino Transf (AST/SGOT) 44 U/L (15-37) Alanine Aminotransferase (ALT/SGPT) 105 U/L (14-59) Alkaline Phosphatase 35 U/L (46-116) Total Protein 6.2 g/dL (6.4-8.2) Albumin 3.6 g/dL (3.4-5.0) Albumin/Globulin Ratio 1.4 (1.0-1.7) Prothrombin Time 14.9 SEC (11.7-14.0) Prothromb Time International Ratio 1.2 (0.8-1.1) Activated Partial Thromboplast Time 26 SEC (24-38) Fibrinogen 121 mg/dL (200-440) Review of Systems Review of Systems RESPIRATORY: Neg SOB,wheeze,cough,sputum,hemoptysis or bronchitis CARDIOVASCULAR: Neg chest pain,palpitations,dyspnea on exertion,orthopnea, paroxysmal nocturnal dyspnea or edema GENITOURINARY: Neg Urinary frequency, hesitancy, urgency, polyuria, dysuria, hematuria, nocturia, or incontinence. SKIN : Neg skin or hair changes,and has no itching,rashes,sores.Denies breast lumps,masses,pain or discharge. Bruising as above PSYCHIATRIC: Neg depression,personality changes,anxiety. ENDOCRINE: Neg polydipsia,polyuria,abnormal weight changes,heat /cold intolerance. Assessment and Plan Assessmemt and Plan Problems Medical Problems: (1) Diplopia Status: Acute (2) Marijuana abuse Status: Acute (3) Myasthenia gravis with acute exacerbation Status: Acute (4) Neck muscle weakness Status: Acute (5) RUE weakness Status: Acute (6) Sinusitis Status: Acute Comment Review of Relevant I have reviewed the following items maliha (where applicable) has been applied. Labs Laboratory Tests Test 12/22/17 04:40 12/22/17 14:40 12/23/17 06:30 12/23/17 08:30 Sodium Level 141 mmol/L (136-145) 140 mmol/L (136-145) Potassium Level 4.0 mmol/L (3.5-5.1) 4.2 mmol/L (3.5-5.1) Chloride Level 104 mmol/L (98-107) 103 mmol/L (98-107) Carbon Dioxide Level 29 mmol/L (21-32) 31 mmol/L (21-32) Anion Gap 8 (6-14) 6 (6-14) Blood Urea Nitrogen 16 mg/dL (7-20) 17 mg/dL (7-20) Creatinine 0.6 mg/dL (0.6-1.0) 0.5 mg/dL (0.6-1.0) Estimated GFR (Cockcroft-Gault) 123.9 152.9 Glucose Level 171 mg/dL (70-99) 196 mg/dL (70-99) Calcium Level 8.4 mg/dL (8.5-10.1) 9.1 mg/dL (8.5-10.1) Fibrinogen 120 mg/dL (200-440) 121 mg/dL (200-440) White Blood Count 18.4 x10^3/uL (4.0-11.0) Red Blood Count 5.36 x10^6/uL (3.50-5.40) Hemoglobin 15.4 g/dL (12.0-15.5) Hematocrit 45.5 % (36.0-47.0) Mean Corpuscular Volume 85 fL (79-100) Mean Corpuscular Hemoglobin 29 pg (25-35) Mean Corpuscular Hemoglobin Concent 34 g/dL (31-37) Red Cell Distribution Width 12.5 % (11.5-14.5) Platelet Count 114 x10^3/uL (140-400) BUN/Creatinine Ratio 34 (6-20) Magnesium Level 2.2 mg/dL (1.8-2.4) Total Bilirubin 0.5 mg/dL (0.2-1.0) Aspartate Amino Transf (AST/SGOT) 44 U/L (15-37) Alanine Aminotransferase (ALT/SGPT) 105 U/L (14-59) Alkaline Phosphatase 35 U/L (46-116) Total Protein 6.2 g/dL (6.4-8.2) Albumin 3.6 g/dL (3.4-5.0) Albumin/Globulin Ratio 1.4 (1.0-1.7) Prothrombin Time 14.9 SEC (11.7-14.0) Prothromb Time International Ratio 1.2 (0.8-1.1) Activated Partial Thromboplast Time 26 SEC (24-38) Laboratory Tests Test 12/23/17 06:30 12/23/17 08:30 White Blood Count 18.4 x10^3/uL (4.0-11.0) Red Blood Count 5.36 x10^6/uL (3.50-5.40) Hemoglobin 15.4 g/dL (12.0-15.5) Hematocrit 45.5 % (36.0-47.0) Mean Corpuscular Volume 85 fL (79-100) Mean Corpuscular Hemoglobin 29 pg (25-35) Mean Corpuscular Hemoglobin Concent 34 g/dL (31-37) Red Cell Distribution Width 12.5 % (11.5-14.5) Platelet Count 114 x10^3/uL (140-400) Sodium Level 140 mmol/L (136-145) Potassium Level 4.2 mmol/L (3.5-5.1) Chloride Level 103 mmol/L (98-107) Carbon Dioxide Level 31 mmol/L (21-32) Anion Gap 6 (6-14) Blood Urea Nitrogen 17 mg/dL (7-20) Creatinine 0.5 mg/dL (0.6-1.0) Estimated GFR (Cockcroft-Gault) 152.9 BUN/Creatinine Ratio 34 (6-20) Glucose Level 196 mg/dL (70-99) Calcium Level 9.1 mg/dL (8.5-10.1) Magnesium Level 2.2 mg/dL (1.8-2.4) Total Bilirubin 0.5 mg/dL (0.2-1.0) Aspartate Amino Transf (AST/SGOT) 44 U/L (15-37) Alanine Aminotransferase (ALT/SGPT) 105 U/L (14-59) Alkaline Phosphatase 35 U/L (46-116) Total Protein 6.2 g/dL (6.4-8.2) Albumin 3.6 g/dL (3.4-5.0) Albumin/Globulin Ratio 1.4 (1.0-1.7) Prothrombin Time 14.9 SEC (11.7-14.0) Prothromb Time International Ratio 1.2 (0.8-1.1) Activated Partial Thromboplast Time 26 SEC (24-38) Fibrinogen 121 mg/dL (200-440) Medications Current Medications Meclizine HCl (Antivert) 25 mg 1X ONCE PO Last administered on 12/17/17at 20:00 ; Start 12/17/17 at 20:00; Stop 12/17/17 at 20:01; Status DC Sodium Chloride 1,000 ml @ 1,000 mls/hr 1X ONCE IV Last administered on at 20:35; Start 12/17/17 at 20:15; Stop 12/17/17 at 21:14; Status DC Ketorolac Tromethamine (Toradol 15mg Vial) 15 mg 1X ONCE IV Last administered on 12/17/17at 20:36; Start 12/17/17 at 20:15; Stop 12/17/17 at 20:16; Status DC Diphenhydramine HCl (Benadryl) 25 mg 1X ONCE PO Last administered on at 02:16; Start 12/18/17 at 02:15; Stop 12/18/17 at 02:18; Status DC Acetaminophen (Tylenol) 500 mg PRN Q6HRS PRN PO MILD PAIN / TEMP; Start at 09:00 Acetaminophen/ Codeine Phosphate (Tylenol #3) 1 tab PRN Q6HRS PRN PO PAIN; Start 12/18/17 at 09:00; Stop 12/18/17 at 12:08; Status DC Ibuprofen (Motrin) 600 mg PRN Q6HRS PRN PO INFLAMMATION; Start 12/18/17 at 09: 00; Stop 12/19/17 at 16:23; Status DC Ondansetron HCl (Zofran) 4 mg PRN Q6HRS PRN IV NAUSEA/VOMITING Last administered on 12/23/17at 18:00; Start 12/18/17 at 09:00 Ondansetron HCl (Zofran Odt) 4 mg PRN Q6HRS PRN PO NAUSEA/VOMITING; Start 12/18 at 09:00; Stop 12/18/17 at 12:08; Status DC Fluticasone Propionate (Flonase) 1 spray DAILY NS Last administered on at 08:21; Start 12/18/17 at 09:00 Acetaminophen/ Hydrocodone Bitart (Lortab 7.5-325/ 15ml Oral Solution) 15 ml PRN Q4HRS PRN PO MODERATE PAIN; Start 12/18/17 at 09:00; Stop 12/19/17 at 16:23 ; Status DC Non-Formulary Medication (Albuterol Sulfate (Proair Hfa Inhaler)) 1 puff PRN Q6HRS PRN INH SHORTNESS OF BREATH; Start 12/18/17 at 09:00; Status UNV Amoxicillin (Amoxil) 750 mg BID PO Last administered on 12/18/17at 21:02; Start 12/18/17 at 10:00; Stop 12/19/17 at 16:23; Status DC Levothyroxine Sodium (Synthroid) 25 mcg DAILY07 PO ; Start 12/18/17 at 10:30; Stop 12/18/17 at 12:08; Status DC Prednisone (Prednisone) 50 mg DAILY PO ; Start 12/18/17 at 10:00; Stop 12/18/17 at 12:08; Status DC Alprazolam (Xanax) 0.25 mg PRN Q8HRS PRN PO ANXIETY / AGITATION; Start at 09:00; Stop 12/19/17 at 08:14; Status DC Zolpidem Tartrate (Ambien) 5 mg PRN QHS PRN PO INSOMNIA; Start 12/18/17 at 09: 00; Stop 12/18/17 at 12:08; Status DC Cetirizine HCl (ZyrTEC) 10 mg DAILY PO ; Start 12/18/17 at 10:00; Stop 12/18/17 at 12:08; Status DC Non-Formulary Medication 1 ea 1X ONCE IV ; Start 12/18/17 at 09:00; Stop at 09:01; Status UNV Potassium Chloride/Dextrose/ Sod Cl 1,000 ml @ 80 mls/hr [id number] IV Last administered on 12/19/17at 10:00; Start 12/18/17 at 09:00; Stop 12/20/17 at 09:07 ; Status DC Albuterol Sulfate (Ventolin Neb Soln) 2.5 mg PRN Q6HRS PRN NEB SHORTNESS OF BREATH Last administered on 12/18/17at 13:12; Start 12/18/17 at 09:30 Iohexol (Omnipaque 300 Mg/ml) 75 ml 1X ONCE IV Last administered on 12/18/17at 10:31; Start 12/18/17 at 10:15; Stop 12/18/17 at 10:16; Status DC Info (CONTRAST GIVEN -- Rx MONITORING) 1 each PRN DAILY PRN MC SEE COMMENTS; Start 12/18/17 at 10:15; Stop 12/20/17 at 10:14; Status DC Levothyroxine Sodium 15 mcg/ Sodium Chloride 5 ml @ 100 mls/hr DAILY IVP Last administered on 12/20/17at 09:41; Start 12/18/17 at 12:30; Stop 12/20/17 at 11:44 ; Status DC Lorazepam (Ativan) 1 mg PRN Q4HRS PRN IV ANXIETY / AGITATION Last administered on 12/23/17at 15:26; Start 12/18/17 at 13:15 Alprazolam (Xanax) 0.25 mg PRN Q8HRS PRN NG ANXIETY / AGITATION Last administered on 12/19/17at 01:13; Start 12/18/17 at 13:15; Stop 12/19/17 at 16:23 ; Status DC Pyridostigmine [place] (Mestinon) 60 mg BID NG Last administered on 12/18/17at 21:01; Start 12/18/17 at 13:00; Stop 12/19/17 at 16:23; Status DC Prednisone (Prednisone) 50 mg DAILY PO Last administered on 12/18/17at 16:03; Start 12/18/17 at 13:00; Stop 12/19/17 at 16:23; Status DC Famotidine (Pepcid) 20 mg QHS PO Last administered on 12/18/17at 21:01; Start at 21:00; Stop 12/19/17 at 16:23; Status DC Calcium Carbonate/ Glycine (Oscal) 500 mg TIDAFTMEAL PO ; Start 12/18/17 at 18: 00; Stop 12/19/17 at 16:23; Status DC Ergocalciferol (Vitamin D2) 50,000 unit MoTh PO ; Start 12/19/17 at 09:00; Stop 12/19/17 at 16:23; Status DC Lidocaine/Sodium Bicarbonate (Buffered Lidocaine 1%) 3 ml STK-MED ONCE .ROUTE ; Start 12/18/17 at 14:32; Stop 12/18/17 at 14:33; Status DC Heparin Sodium (Porcine) (Heparin Sodium) 10,000 unit STK-MED ONCE .ROUTE ; Start 12/18/17 at 14:32; Stop 12/18/17 at 14:33; Status DC Lidocaine/Sodium Bicarbonate (Buffered Lidocaine 1%) 3 ml 1X ONCE INJ Last administered on 12/18/17at 15:15; Start 12/18/17 at 15:15; Stop 12/18/17 at 15:16 ; Status DC Heparin Sodium (Porcine) (Heparin Sodium) 2,200 unit 1X ONCE INT CAT Last administered on 12/18/17at 15:15; Start 12/18/17 at 15:15; Stop 12/18/17 at 15:16 ; Status DC Scopolamine (Transderm-Scop) 1 patch 1X ONCE TD Last administered on at 21:41; Start 12/18/17 at 21:30; Stop 12/19/17 at 16:23; Status DC Albumin Human 1,500 ml @ 0 mls/hr 1X ONCE IV Last administered on 12/19/17at 11:38; Start 12/19/17 at 08:15; Stop 12/19/17 at 08:16; Status DC Heparin Sodium (Porcine) (Heparin Sodium) 10,000 unit STK-MED ONCE .ROUTE ; Start 12/19/17 at 08:40; Stop 12/19/17 at 08:41; Status DC Info (Tpn Per Pharmacy) 1 each PRN DAILY PRN MC SEE COMMENTS Last administered on 12/23/17at 11:23; Start 12/20/17 at 16:30 Pyridostigmine Hughson (Regonol) 2.5 mg Q12HR IV Last administered on at 08:31; Start 12/19/17 at 21:00 Methylprednisolone Sodium Succinate (SOLU-Medrol 40MG VIAL) 40 mg Q12HR IV Last administered on 12/23/17at 08:29; Start 12/19/17 at 21:00 Famotidine (Pepcid Vial) 20 mg QHS IVP Last administered on 12/19/17at 21:33; Start 12/19/17 at 21:00; Stop 12/20/17 at 11:44; Status DC Morphine Sulfate (Morphine Sulfate) 2 mg PRN Q2HR PRN IV MODERATE TO SEVERE PAIN Last administered on 12/23/17at 15:26; Start 12/19/17 at 23:15 Amino Acids/ Glycerin/ Electrolytes 1,000 ml @ 80 mls/hr [id number] IV Last administered on 12/20/17at 09:57; Start 12/20/17 at 09:30; Stop 12/20/17 at 11:44 ; Status DC Alteplase, Recombinant (Cathflo) 2 mg 1X ONCE IV Last administered on at 12:37; Start 12/20/17 at 11:45; Stop 12/20/17 at 11:46; Status DC Cyclobenzaprine HCl (Flexeril) 5 mg QID PO Last administered on 12/21/17at 09:10 ; Start 12/20/17 at 17:00 Cyclobenzaprine HCl (Flexeril) 10 mg 1X ONCE PO ; Start 12/20/17 at 11:45; Stop 12/20/17 at 11:53; Status DC Levothyroxine Sodium (Synthroid) 25 mcg DAILY07 PO ; Start 12/21/17 at 07:00; Stop 12/21/17 at 07:00; Status DC Levothyroxine Sodium 12.5 mcg/ Sodium Chloride 5 ml @ 100 mls/hr DAILY IVP Last administered on 12/23/17at 08:27; Start 12/21/17 at 09:00 Sodium Chloride 90 meq/Potassium Chloride 50 meq/ Potassium Phosphate 13.6 mmol/ Magnesium Sulfate 5 meq/ Calcium Gluconate 5 meq/ Multivitamins 10 ml/Chromium/ Copper/Manganese/ Seleni/Zn 1 ml/ Total Parenteral Nutrition/Amino Acids/ Dextrose/ Fat Emulsion Intravenous 1,512 ml @ 63 mls/hr TPN CONT IV Last administered on 12/20/17at 20:58; Start 12/20/17 at 22:00; Stop 12/21/17 at 21:59 ; Status DC Albumin Human 1,200 ml @ 0 mls/hr 1X ONCE IV Last administered on 12/21/17at 10:40; Start 12/21/17 at 08:45; Stop 12/21/17 at 08:46; Status DC Heparin Sodium (Porcine) (Heparin Sodium) 10,000 unit STK-MED ONCE .ROUTE ; Start 12/21/17 at 08:50; Stop 12/21/17 at 08:51; Status DC Diphenhydramine HCl (Benadryl) 50 mg STK-MED ONCE .ROUTE ; Start 12/21/17 at 11: 46; Stop 12/21/17 at 11:47; Status DC Diphenhydramine HCl (Benadryl) 50 mg 1X ONCE IVP Last administered on at 11:59; Start 12/21/17 at 12:00; Stop 12/21/17 at 12:01; Status DC Sodium Chloride 90 meq/Potassium Chloride 50 meq/ Potassium Phosphate 13.6 mmol/ Magnesium Sulfate 5 meq/ Calcium Gluconate 5 meq/ Multivitamins 10 ml/Chromium/ Copper/Manganese/ Seleni/Zn 1 ml/ Total Parenteral Nutrition/Amino Acids/ Dextrose/ Fat Emulsion Intravenous 1,512 ml @ 63 mls/hr TPN CONT IV Last administered on 12/21/17at 22:00; Start 12/21/17 at 22:00; Stop 12/22/17 at 21:59 ; Status DC Sodium Chloride 90 meq/Potassium Chloride 50 meq/ Potassium Phosphate 13.6 mmol/ Magnesium Sulfate 5 meq/ Calcium Gluconate 5 meq/ Multivitamins 10 ml/Chromium/ Copper/Manganese/ Seleni/Zn 1 ml/ Total Parenteral Nutrition/Amino Acids/ Dextrose/ Fat Emulsion Intravenous 1,512 ml @ 63 mls/hr TPN CONT IV Last administered on 12/22/17at 21:26; Start 12/22/17 at 22:00; Stop 12/23/17 at 21:59 Famotidine (Pepcid Vial) 20 mg QHS IVP ; Start 12/23/17 at 21:00 Sodium Chloride 90 meq/Potassium Chloride 50 meq/ Potassium Phosphate 13.6 mmol/ Magnesium Sulfate 5 meq/ Calcium Gluconate 5 meq/ Multivitamins 10 ml/Chromium/ Copper/Manganese/ Seleni/Zn 1 ml/ Total Parenteral Nutrition/Amino Acids/ Dextrose/ Fat Emulsion Intravenous 1,512 ml @ 63 mls/hr TPN CONT IV ; Start 12/23/17 at 22:00; Stop 12/24/17 at 21:59 Diphenhydramine HCl (Benadryl) 50 mg 1X ONCE IVP Last administered on at 17:33; Start 12/23/17 at 12:00; Stop 12/23/17 at 12:23; Status DC Albumin Human 1,500 ml @ 125 mls/hr 1X ONCE IV Last administered on at 17:34; Start 12/23/17 at 12:30; Stop 12/24/17 at 00:29 Heparin Sodium (Porcine) (Heparin Sodium) 10,000 unit [employer] ONCE .ROUTE ; Start 12/23/17 at 14:57; Stop 12/23/17 at 14:58; Status DC Oxycodone/ Acetaminophen (Percocet 5/325) 1 tab PRN Q6HRS PRN PO PAIN; Start 12/23/17 at 20:45; Status Cancel Active Scripts Active Reported Amoxicillin 875 Mg Tablet 1 Tab PO BID Levothyroxine Sodium 25 Mcg Tablet 1 Tab PO DAILY Proair Hfa Inhaler (Albuterol Sulfate) 8.5 Gm Hfa.aer.ad 1 Puff INH PRN Q6HRS PRN [kaitlib fe] Hydrocodone-Apap 7.5-325/15 Soln (Hydrocodone Bit/Acetaminophen) 15 Ml Solution 15 Ml PO PRN Q4HRS PRN Prednisone 50 Mg Tablet 1 Tab PO DAILY Fluticasone Propionate Nasal [place] (Fluticasone Propionate) 16 Gm [place].susp 1 [place] NS DAILY [zoloft] [ativan] Vitals/I & O Vital Sign - Last 24 Hours 12/22/17 12/22/17 12/23/17 12/23/17 21:40 23:15 01:33 02:05 Temp 97.7 97.7 Pulse 93 Resp 17 18 17 17 B/P (MAP) 147/76 (99) Pulse Ox 95 O2 Delivery Room Air Room Air Room Air 12/23/17 12/23/17 12/23/17 12/23/17 03:15 06:43 07:00 07:31 Temp 97.5 97.7 97.5 97.7 Pulse 90 87 Resp 18 17 20 B/P (MAP) 151/91 (111) 156/95 (115) Pulse Ox 96 94 O2 Delivery Room Air Room Air Room Air Room Air 12/23/17 12/23/17 12/23/17 12/23/17 11:00 11:12 15:00 15:26 Temp 97.7 97.7 97.7 97.7 Pulse 107 94 Resp 24 20 B/P (MAP) 131/92 (105) 144/91 (108) Pulse Ox 97 96 O2 Delivery Room Air Room Air Room Air Room Air 12/23/17 12/23/17 15:50 19:10 Temp 98.1 98.1 Pulse 96 Resp 18 B/P (MAP) 150/80 (103) Pulse Ox 96 O2 Delivery Room Air Room Air Intake and Output 12/22/17 12/22/17 12/23/17 15:00 23:00 07:00 Intake Total 0 ml 0 ml Balance 0 ml 0 ml SINDY SANTILLAN MD Dec 23, 2017 21:11
[2017-12-23] MEDS ORDERED: AMINO ACIDS IV SCH ×10 (22:00)
[2017-12-23] MEDS ORDERED: [UNRECOGNIZED DRUG - OTHER] IV SCH ×10 (22:00)
[2017-12-23] MEDS ORDERED: DEXTROSE 70% IV SCH ×10 (22:00)
[2017-12-23] MEDS ORDERED: TOTAL PARENTERAL NUTRITION IV SCH ×10 (22:00)
[2017-12-24] MEDS: MORPHINE SULFATE 2 MG/ML VIAL. IV PRN ×3 (01:31→21:06)
[2017-12-24 03:15] VITALS: BP 139/87
[2017-12-24 05:16] LABS: ALBUMIN 3.5 g/dL (3.4-5.0); ALBUMIN/GLOBULIN RATIO 1.8 (1.0-1.7); CALCIUM 8.1 mg/dL (8.5-10.1); CREATININE 0.5 mg/dL (0.6-1.0); GFR 152.9; POTASSIUM 4.1 mmol/L (3.5-5.1); TOTAL BILIRUBIN 0.7 mg/dL (0.2-1.0); TOTAL PROTEIN 5.5 g/dL (6.4-8.2)
[2017-12-24 07:00] VITALS: BP 146/88
[2017-12-24] MEDS: NORMAL SALINE IVP SCH (08:23)
[2017-12-24] MEDS: LEVOTHYROXINE SODIUM IVP SCH (08:23)
[2017-12-24] MEDS: CYCLOBENZAPRINE 10 MG TABLET. PO SCH ×4 (08:24→19:57)
[2017-12-24] MEDS: methylPREDNISolone SOD SUCC PF 40 MG/ML VIAL. IV SCH ×2 (08:24→20:09)
[2017-12-24] MEDS: PYRIDOSTIGMINE BROMIDE 10 MG/2 ML AMPUL. IV SCH ×2 (08:24→20:08)
[2017-12-24] MEDS: FLUTICASONE 50MCG/NASAL SPRAY 16GM BOTTLE. NS SCH (08:50)
[2017-12-24] MEDS: ONDANSETRON PF 4 MG/2 ML VIAL. IV PRN ×2 (09:51→18:03)
[2017-12-24] MEDS: TPN PER PHARMACY MC PRN (10:57)
[2017-12-24 11:00] VITALS: BP 143/87
--- NOTE | 2017-12-24 11:18 | PDOC ---
PROGRESS NOTES Assessment Problems Medical Problems: (1) Diplopia Status: Acute (2) Marijuana abuse Status: Acute (3) Myasthenia gravis with acute exacerbation Status: Acute (4) Neck muscle weakness Status: Acute (5) RUE weakness Status: Acute (6) Sinusitis Status: Acute Myasthenia gravis, on steroids and 3 plasmaphereses, a little worse today, we can see a joshua sometimes within a week of starting steroids, I explained to the patient and her mother. Chest CT negative for thymoma Myasthenia serology pending. Also has Eze's thyroiditis Also has anxiety disorder Plan Speech therapy Monitor negative inspiratory force Plasmapheresis QOD, planning on today and one more on 12/25, then reassess IV steroids and pyridostigmine She may need a PEG tube Subjective Feels worse today Objective Vital Signs Date Time Temp Pulse Resp B/P (MAP) Pulse Ox O2 Delivery O2 Flow Rate FiO2 12/24/17 08:00 Room Air 12/24/17 07:00 96.4 73 16 146/88 (107) 97 96.4 Intake and Output 12/24/17 07:00 Intake Total 0 ml Output Total 2 ml Balance -2 ml Intake Oral 0 ml Output Urine Total 2 ml # Voids 2 PHYSICAL EXAM Alert. Oriented to time, place and person. PERRL. EOMI. CN: no focal findings. no diplopia. Voice is weaker Muscle tone: normal. Muscle strength: 5/5 DTR: 2+ Plantar reflex: Flexor Gait: not examined in bed. Sensory exam: no abnormal findings. No cerebellar signs elicited. Review of Relevant I have reviewed the following items maliha (where applicable) has been applied. Labs Laboratory Tests Test 12/22/17 14:40 12/23/17 06:30 12/23/17 08:30 12/24/17 04:30 Fibrinogen 120 mg/dL (200-440) 121 mg/dL (200-440) White Blood Count 18.4 x10^3/uL (4.0-11.0) Red Blood Count 5.36 x10^6/uL (3.50-5.40) Hemoglobin 15.4 g/dL (12.0-15.5) Hematocrit 45.5 % (36.0-47.0) Mean Corpuscular Volume 85 fL (79-100) Mean Corpuscular Hemoglobin 29 pg (25-35) Mean Corpuscular Hemoglobin Concent 34 g/dL (31-37) Red Cell Distribution Width 12.5 % (11.5-14.5) Platelet Count 114 x10^3/uL (140-400) Sodium Level 140 mmol/L (136-145) 141 mmol/L (136-145) Potassium Level 4.2 mmol/L (3.5-5.1) 4.1 mmol/L (3.5-5.1) Chloride Level 103 mmol/L (98-107) 104 mmol/L (98-107) Carbon Dioxide Level 31 mmol/L (21-32) 30 mmol/L (21-32) Anion Gap 6 (6-14) 7 (6-14) Blood Urea Nitrogen 17 mg/dL (7-20) 17 mg/dL (7-20) Creatinine 0.5 mg/dL (0.6-1.0) 0.5 mg/dL (0.6-1.0) Estimated GFR (Cockcroft-Gault) 152.9 152.9 BUN/Creatinine Ratio 34 (6-20) 34 (6-20) Glucose Level 196 mg/dL (70-99) 186 mg/dL (70-99) Calcium Level 9.1 mg/dL (8.5-10.1) 8.1 mg/dL (8.5-10.1) Magnesium Level 2.2 mg/dL (1.8-2.4) Total Bilirubin 0.5 mg/dL (0.2-1.0) 0.7 mg/dL (0.2-1.0) Aspartate Amino Transf (AST/SGOT) 44 U/L (15-37) 40 U/L (15-37) Alanine Aminotransferase (ALT/SGPT) 105 U/L (14-59) 107 U/L (14-59) Alkaline Phosphatase 35 U/L (46-116) 32 U/L (46-116) Total Protein 6.2 g/dL (6.4-8.2) 5.5 g/dL (6.4-8.2) Albumin 3.6 g/dL (3.4-5.0) 3.5 g/dL (3.4-5.0) Albumin/Globulin Ratio 1.4 (1.0-1.7) 1.8 (1.0-1.7) Prothrombin Time 14.9 SEC (11.7-14.0) Prothromb Time International Ratio 1.2 (0.8-1.1) Activated Partial Thromboplast Time 26 SEC (24-38) Laboratory Tests Test 12/24/17 04:30 Sodium Level 141 mmol/L (136-145) Potassium Level 4.1 mmol/L (3.5-5.1) Chloride Level 104 mmol/L (98-107) Carbon Dioxide Level 30 mmol/L (21-32) Anion Gap 7 (6-14) Blood Urea Nitrogen 17 mg/dL (7-20) Creatinine 0.5 mg/dL (0.6-1.0) Estimated GFR (Cockcroft-Gault) 152.9 BUN/Creatinine Ratio 34 (6-20) Glucose Level 186 mg/dL (70-99) Calcium Level 8.1 mg/dL (8.5-10.1) Total Bilirubin 0.7 mg/dL (0.2-1.0) Aspartate Amino Transf (AST/SGOT) 40 U/L (15-37) Alanine Aminotransferase (ALT/SGPT) 107 U/L (14-59) Alkaline Phosphatase 32 U/L (46-116) Total Protein 5.5 g/dL (6.4-8.2) Albumin 3.5 g/dL (3.4-5.0) Albumin/Globulin Ratio 1.8 (1.0-1.7) Medications Current Medications Meclizine HCl (Antivert) 25 mg 1X ONCE PO Last administered on 12/17/17at 20:00 ; Start 12/17/17 at 20:00; Stop 12/17/17 at 20:01; Status DC Sodium Chloride 1,000 ml @ 1,000 mls/hr 1X ONCE IV Last administered on at 20:35; Start 12/17/17 at 20:15; Stop 12/17/17 at 21:14; Status DC Ketorolac Tromethamine (Toradol 15mg Vial) 15 mg 1X ONCE IV Last administered on 12/17/17at 20:36; Start 12/17/17 at 20:15; Stop 12/17/17 at 20:16; Status DC Diphenhydramine HCl (Benadryl) 25 mg 1X ONCE PO Last administered on at 02:16; Start 12/18/17 at 02:15; Stop 12/18/17 at 02:18; Status DC Acetaminophen (Tylenol) 500 mg PRN Q6HRS PRN PO MILD PAIN / TEMP; Start at 09:00 Acetaminophen/ Codeine Phosphate (Tylenol #3) 1 tab PRN Q6HRS PRN PO PAIN; Start 12/18/17 at 09:00; Stop 12/18/17 at 12:08; Status DC Ibuprofen (Motrin) 600 mg PRN Q6HRS PRN PO INFLAMMATION; Start 12/18/17 at 09: 00; Stop 12/19/17 at 16:23; Status DC Ondansetron HCl (Zofran) 4 mg PRN Q6HRS PRN IV NAUSEA/VOMITING Last administered on 12/24/17at 09:51; Start 12/18/17 at 09:00 Ondansetron HCl (Zofran Odt) 4 mg PRN Q6HRS PRN PO NAUSEA/VOMITING; Start 12/18 at 09:00; Stop 12/18/17 at 12:08; Status DC Fluticasone Propionate (Flonase) 1 spray DAILY NS Last administered on at 08:21; Start 12/18/17 at 09:00 Acetaminophen/ Hydrocodone Bitart (Lortab 7.5-325/ 15ml Oral Solution) 15 ml PRN Q4HRS PRN PO MODERATE PAIN; Start 12/18/17 at 09:00; Stop 12/19/17 at 16:23 ; Status DC Non-Formulary Medication (Albuterol Sulfate (Proair Hfa Inhaler)) 1 puff PRN Q6HRS PRN INH SHORTNESS OF BREATH; Start 12/18/17 at 09:00; Status UNV Amoxicillin (Amoxil) 750 mg BID PO Last administered on 12/18/17at 21:02; Start 12/18/17 at 10:00; Stop 12/19/17 at 16:23; Status DC Levothyroxine Sodium (Synthroid) 25 mcg DAILY07 PO ; Start 12/18/17 at 10:30; Stop 12/18/17 at 12:08; Status DC Prednisone (Prednisone) 50 mg DAILY PO ; Start 12/18/17 at 10:00; Stop 12/18/17 at 12:08; Status DC Alprazolam (Xanax) 0.25 mg PRN Q8HRS PRN PO ANXIETY / AGITATION; Start at 09:00; Stop 12/19/17 at 08:14; Status DC Zolpidem Tartrate (Ambien) 5 mg PRN QHS PRN PO INSOMNIA; Start 12/18/17 at 09: 00; Stop 12/18/17 at 12:08; Status DC Cetirizine HCl (ZyrTEC) 10 mg DAILY PO ; Start 12/18/17 at 10:00; Stop 12/18/17 at 12:08; Status DC Non-Formulary Medication 1 ea 1X ONCE IV ; Start 12/18/17 at 09:00; Stop at 09:01; Status UNV Potassium Chloride/Dextrose/ Sod Cl 1,000 ml @ 80 mls/hr [id number] IV Last administered on 12/19/17at 10:00; Start 12/18/17 at 09:00; Stop 12/20/17 at 09:07 ; Status DC Albuterol Sulfate (Ventolin Neb Soln) 2.5 mg PRN Q6HRS PRN NEB SHORTNESS OF BREATH Last administered on 12/18/17at 13:12; Start 12/18/17 at 09:30 Iohexol (Omnipaque 300 Mg/ml) 75 ml 1X ONCE IV Last administered on 12/18/17at 10:31; Start 12/18/17 at 10:15; Stop 12/18/17 at 10:16; Status DC Info (CONTRAST GIVEN -- Rx MONITORING) 1 each PRN DAILY PRN MC SEE COMMENTS; Start 12/18/17 at 10:15; Stop 12/20/17 at 10:14; Status DC Levothyroxine Sodium 15 mcg/ Sodium Chloride 5 ml @ 100 mls/hr DAILY IVP Last administered on 12/20/17at 09:41; Start 12/18/17 at 12:30; Stop 12/20/17 at 11:44 ; Status DC Lorazepam (Ativan) 1 mg PRN Q4HRS PRN IV ANXIETY / AGITATION Last administered on 12/24/17at 08:40; Start 12/18/17 at 13:15 Alprazolam (Xanax) 0.25 mg PRN Q8HRS PRN NG ANXIETY / AGITATION Last administered on 12/19/17at 01:13; Start 12/18/17 at 13:15; Stop 12/19/17 at 16:23 ; Status DC Pyridostigmine [place] (Mestinon) 60 mg BID NG Last administered on 12/18/17at 21:01; Start 12/18/17 at 13:00; Stop 12/19/17 at 16:23; Status DC Prednisone (Prednisone) 50 mg DAILY PO Last administered on 12/18/17at 16:03; Start 12/18/17 at 13:00; Stop 12/19/17 at 16:23; Status DC Famotidine (Pepcid) 20 mg QHS PO Last administered on 12/18/17at 21:01; Start at 21:00; Stop 12/19/17 at 16:23; Status DC Calcium Carbonate/ Glycine (Oscal) 500 mg TIDAFTMEAL PO ; Start 12/18/17 at 18: 00; Stop 12/19/17 at 16:23; Status DC Ergocalciferol (Vitamin D2) 50,000 unit MoTh PO ; Start 12/19/17 at 09:00; Stop 12/19/17 at 16:23; Status DC Lidocaine/Sodium Bicarbonate (Buffered Lidocaine 1%) 3 ml STK-MED ONCE .ROUTE ; Start 12/18/17 at 14:32; Stop 12/18/17 at 14:33; Status DC Heparin Sodium (Porcine) (Heparin Sodium) 10,000 unit STK-MED ONCE .ROUTE ; Start 12/18/17 at 14:32; Stop 12/18/17 at 14:33; Status DC Lidocaine/Sodium Bicarbonate (Buffered Lidocaine 1%) 3 ml 1X ONCE INJ Last administered on 12/18/17at 15:15; Start 12/18/17 at 15:15; Stop 12/18/17 at 15:16 ; Status DC Heparin Sodium (Porcine) (Heparin Sodium) 2,200 unit 1X ONCE INT CAT Last administered on 12/18/17at 15:15; Start 12/18/17 at 15:15; Stop 12/18/17 at 15:16 ; Status DC Scopolamine (Transderm-Scop) 1 patch 1X ONCE TD Last administered on 21:41; Start 12/18/17 at 21:30; Stop 12/19/17 at 16:23; Status DC Albumin Human 1,500 ml @ 0 mls/hr 1X ONCE IV Last administered on 12/19/17at 11:38; Start 12/19/17 at 08:15; Stop 12/19/17 at 08:16; Status DC Heparin Sodium (Porcine) (Heparin Sodium) 10,000 unit STK-MED ONCE .ROUTE ; Start 12/19/17 at 08:40; Stop 12/19/17 at 08:41; Status DC Info (Tpn Per Pharmacy) 1 each PRN DAILY PRN MC SEE COMMENTS Last administered on 12/24/17at 10:57; Start 12/20/17 at 16:30 Pyridostigmine G[place]on (Regonol) 2.5 mg Q12HR IV Last administered on 08:24; Start 12/19/17 at 21:00 Methylprednisolone Sodium Succinate (SOLU-Medrol 40MG VIAL) 40 mg Q12HR IV Last administered on 12/24/17 08:24; Start 12/19/17 at 21:00 Famotidine (Pepcid Vial) 20 mg QHS IVP Last administered on 12/19/17at 21:33; Start 12/19/17 at 21:00; Stop 12/20/17 at 11:44; Status DC Morphine Sulfate (Morphine Sulfate) 2 mg PRN Q2HR PRN IV MODERATE TO SEVERE PAIN Last administered on 12/24/17at 04:33; Start 12/19/17 at 23:15 Amino Acids/ Glycerin/ Electrolytes 1,000 ml @ 80 mls/hr [id number] IV Last administered on 12/20/17 09:57; Start 12/20/17 at 09:30; Stop 12/20/17 at 11:44 ; Status DC Alteplase, Recombinant (Cathflo) 2 mg 1X ONCE IV Last administered on at 12:37; Start 12/20/17 at 11:45; Stop 12/20/17 at 11:46; Status DC Cyclobenzaprine HCl (Flexeril) 5 mg QID PO Last administered on 12/21/17at 09:10 ; Start 12/20/17 at 17:00 Cyclobenzaprine HCl (Flexeril) 10 mg 1X ONCE PO ; Start 12/20/17 at 11:45; Stop 12/20/17 at 11:53; Status DC Levothyroxine Sodium (Synthroid) 25 mcg DAILY07 PO ; Start 12/21/17 at 07:00; Stop 12/21/17 at 07:00; Status DC Levothyroxine Sodium 12.5 mcg/ Sodium Chloride 5 ml @ 100 mls/hr DAILY IVP Last administered on 12/24/17at 08:23; Start 12/21/17 at 09:00 Sodium Chloride 90 meq/Potassium Chloride 50 meq/ Potassium Phosphate 13.6 mmol/ Magnesium Sulfate 5 meq/ Calcium Gluconate 5 meq/ Multivitamins 10 ml/Chromium/ Copper/Manganese/ Seleni/Zn 1 ml/ Total Parenteral Nutrition/Amino Acids/ Dextrose/ Fat Emulsion Intravenous 1,512 ml @ 63 mls/hr TPN CONT IV Last administered on 12/20/17at 20:58; Start 12/20/17 at 22:00; Stop 12/21/17 at 21:59 ; Status DC Albumin Human 1,200 ml @ 0 mls/hr 1X ONCE IV Last administered on 12/21/17at 10:40; Start 12/21/17 at 08:45; Stop 12/21/17 at 08:46; Status DC Heparin Sodium (Porcine) (Heparin Sodium) 10,000 unit STK-MED ONCE .ROUTE ; Start 12/21/17 at 08:50; Stop 12/21/17 at 08:51; Status DC Diphenhydramine HCl (Benadryl) 50 mg STK-MED ONCE .ROUTE ; Start 12/21/17 at 11: 46; Stop 12/21/17 at 11:47; Status DC Diphenhydramine HCl (Benadryl) 50 mg 1X ONCE IVP Last administered on at 11:59; Start 12/21/17 at 12:00; Stop 12/21/17 at 12:01; Status DC Sodium Chloride 90 meq/Potassium Chloride 50 meq/ Potassium Phosphate 13.6 mmol/ Magnesium Sulfate 5 meq/ Calcium Gluconate 5 meq/ Multivitamins 10 ml/Chromium/ Copper/Manganese/ Seleni/Zn 1 ml/ Total Parenteral Nutrition/Amino Acids/ Dextrose/ Fat Emulsion Intravenous 1,512 ml @ 63 mls/hr TPN CONT IV Last administered on 12/21/17at 22:00; Start 12/21/17 at 22:00; Stop 12/22/17 at 21:59 ; Status DC Sodium Chloride 90 meq/Potassium Chloride 50 meq/ Potassium Phosphate 13.6 mmol/ Magnesium Sulfate 5 meq/ Calcium Gluconate 5 meq/ Multivitamins 10 ml/Chromium/ Copper/Manganese/ Seleni/Zn 1 ml/ Total Parenteral Nutrition/Amino Acids/ Dextrose/ Fat Emulsion Intravenous 1,512 ml @ 63 mls/hr TPN CONT IV Last administered on 12/22/17at 21:26; Start 12/22/17 at 22:00; Stop 12/23/17 at 21:59 ; Status DC Famotidine (Pepcid Vial) 20 mg QHS IVP Last administered on 12/23/17at 21:07; Start 12/23/17 at 21:00 Sodium Chloride 90 meq/Potassium Chloride 50 meq/ Potassium Phosphate 13.6 mmol/ Magnesium Sulfate 5 meq/ Calcium Gluconate 5 meq/ Multivitamins 10 ml/Chromium/ Copper/Manganese/ Seleni/Zn 1 ml/ Total Parenteral Nutrition/Amino Acids/ Dextrose/ Fat Emulsion Intravenous 1,512 ml @ 63 mls/hr TPN CONT IV Last administered on 12/23/17at 21:10; Start 12/23/17 at 22:00; Stop 12/24/17 at 21:59 Diphenhydramine HCl (Benadryl) 50 mg 1X ONCE IVP Last administered on at 17:33; Start 12/23/17 at 12:00; Stop 12/23/17 at 12:23; Status DC Albumin Human 1,500 ml @ 125 mls/hr 1X ONCE IV Last administered on at 17:34; Start 12/23/17 at 12:30; Stop 12/24/17 at 00:29; Status DC Heparin Sodium (Porcine) (Heparin Sodium) 10,000 unit STK-MED ONCE .ROUTE ; Start 12/23/17 at 14:57; Stop 12/23/17 at 14:58; Status DC Oxycodone/ Acetaminophen (Percocet 5/325) 1 tab PRN Q6HRS PRN PO PAIN; Start 12/23/17 at 20:45; Status Cancel Sodium Chloride 90 meq/Potassium Chloride 50 meq/ Potassium Phosphate 13.6 mmol/ Magnesium Sulfate 5 meq/ Calcium Gluconate 5 meq/ Multivitamins 10 ml/Chromium/ Copper/Manganese/ Seleni/Zn 1 ml/ Total Parenteral Nutrition/Amino Acids/ Dextrose/ Fat Emulsion Intravenous 1,512 ml @ 63 mls/hr TPN CONT IV ; Start 12/24/17 at 22:00; Stop 12/25/17 at 21:59 Active Scripts Active Reported Amoxicillin 875 Mg Tablet 1 Tab PO BID Levothyroxine Sodium 25 Mcg Tablet 1 Tab PO DAILY Proair Hfa Inhaler (Albuterol Sulfate) 8.5 Gm Hfa.aer.ad 1 Puff INH PRN Q6HRS PRN [kaitlib fe] Hydrocodone-Apap 7.5-325/15 Soln (Hydrocodone Bit/Acetaminophen) 15 Ml Solution 15 Ml PO PRN Q4HRS PRN Prednisone 50 Mg Tablet 1 Tab PO DAILY Fluticasone Propionate Nasal Fabens (Fluticasone Propionate) 16 Gm Fabens.susp 1 Fabens NS DAILY [zoloft] [ativan] Vitals/I & O Vital Sign - Last 24 Hours 12/23/17 12/23/17 12/23/17 12/23/17 15:00 15:26 19:10 20:00 Temp 97.7 98.1 97.7 98.1 Pulse 94 96 Resp 20 18 B/P (MAP) 144/91 (108) 150/80 (103) Pulse Ox 96 96 O2 Delivery Room Air Room Air Room Air Room Air 12/23/17 12/23/17 12/24/17 12/24/17 21:31 23:15 01:31 03:15 Temp 98.0 97.4 98.0 97.4 Pulse 81 73 Resp 18 18 B/P (MAP) 144/93 (110) 139/87 (104) Pulse Ox 96 96 O2 Delivery Room Air Room Air Room Air Room Air 12/24/17 12/24/17 12/24/17 12/24/17 04:33 05:03 07:00 08:00 Temp 96.4 96.4 Pulse 73 Resp 16 B/P (MAP) 146/88 (107) Pulse Ox 97 O2 Delivery Room Air Room Air Room Air Room Air Intake and Output 12/23/17 12/23/17 12/24/17 15:00 23:00 07:00 Intake Total 0 ml 0 ml Output Total 2 ml Balance 0 ml -2 ml GAURAV BARONE MD Dec 24, 2017 11:18
[2017-12-24 15:00] VITALS: BP 144/92
[2017-12-24] MEDS: FAMOTIDINE 20 MG/2 ML VIAL IVP SCH (20:08)
[2017-12-24 20:10] VITALS: BP 126/77
--- NOTE | 2017-12-24 21:14 | PDOC ---
PROGRESS NOTES Chief Complaint Chief Complaint myasthenia gravis - new diagnosis Diplopia Dysphagia Eze's thyroiditis Easy bruising History of Present Illness History of Present Illness Pleasant today , feels worse, has started plasmapheresis 3 treatments,-has an indwelling right subclavian catheter Still stiff neck, diplopia improved now, right side hand weakness is better, she is using hands to make friendship bracelets bedside. States she is having more weakness repositioning Had some issues with [place] kept on coiling hence now PICC line on the left and TPN going. She will not consent to NGT again, have discussed PEG or J-tube with her and mother bedside, they are still contemplating. She is able to spit up her secretions-doing well with NIF Does admit to increasing weakness and fatigability upon repetitive motion which is consistent with myasthenia gravis. New bruising on her bilateral shins and axilla noted no worse today. Plan: pyridostigmine and IV steroids started Plasmapheresis per renal/neurology-claims will get 5 doses every other day hence will be here at least until 12/27 Thyroid is IV because of swallow issues-still nothing by mouth DTRs are +2 IV Pepcid since swallow issues and is nothing by mouth TPN tolerated - discussed considering surgical consultation and J-tube, they wish to think about it, will readdress in AM May need EMG of diaphragm in the future to assess her ability to maintain tidal volume if she does not continue to improve Discussed in detail with patient and mother, bedside Vitals Vitals Vital Signs Date Time Temp Pulse Resp B/P (MAP) Pulse Ox O2 Delivery O2 Flow Rate FiO2 12/24/17 20:10 97.9 102 20 126/77 (93) 96 Room Air 97.9 Physical Exam General: Alert, Oriented X3, Cooperative, No acute distress Heart: Regular rate, Normal S1, Normal S2 Abdomen: Normal bowel sounds, Soft, No tenderness, No hepatosplenomegaly, No masses Extremities: No clubbing, No cyanosis Skin: No rashes, No breakdown, No significant lesion, Other (lipoma at the nape ) Labs LABS Laboratory Tests Test 12/24/17 04:30 Sodium Level 141 mmol/L (136-145) Potassium Level 4.1 mmol/L (3.5-5.1) Chloride Level 104 mmol/L (98-107) Carbon Dioxide Level 30 mmol/L (21-32) Anion Gap 7 (6-14) Blood Urea Nitrogen 17 mg/dL (7-20) Creatinine 0.5 mg/dL (0.6-1.0) Estimated GFR (Cockcroft-Gault) 152.9 BUN/Creatinine Ratio 34 (6-20) Glucose Level 186 mg/dL (70-99) Calcium Level 8.1 mg/dL (8.5-10.1) Total Bilirubin 0.7 mg/dL (0.2-1.0) Aspartate Amino Transf (AST/SGOT) 40 U/L (15-37) Alanine Aminotransferase (ALT/SGPT) 107 U/L (14-59) Alkaline Phosphatase 32 U/L (46-116) Total Protein 5.5 g/dL (6.4-8.2) Albumin 3.5 g/dL (3.4-5.0) Albumin/Globulin Ratio 1.8 (1.0-1.7) Review of Systems Review of Systems Resp - clearing secretions Card - no CP or palpitations GI - NPO, no pain, no bm Psych - a little depressed today Assessment and Plan Assessmemt and Plan Problems Medical Problems: (1) Diplopia Status: Acute (2) Marijuana abuse Status: Acute (3) Myasthenia gravis with acute exacerbation Status: Acute (4) Neck muscle weakness Status: Acute (5) RUE weakness Status: Acute (6) Sinusitis Status: Acute Comment Review of Relevant I have reviewed the following items maliha (where applicable) has been applied. Labs Laboratory Tests Test 12/23/17 06:30 12/23/17 08:30 12/24/17 04:30 White Blood Count 18.4 x10^3/uL (4.0-11.0) Red Blood Count 5.36 x10^6/uL (3.50-5.40) Hemoglobin 15.4 g/dL (12.0-15.5) Hematocrit 45.5 % (36.0-47.0) Mean Corpuscular Volume 85 fL (79-100) Mean Corpuscular Hemoglobin 29 pg (25-35) Mean Corpuscular Hemoglobin Concent 34 g/dL (31-37) Red Cell Distribution Width 12.5 % (11.5-14.5) Platelet Count 114 x10^3/uL (140-400) Sodium Level 140 mmol/L (136-145) 141 mmol/L (136-145) Potassium Level 4.2 mmol/L (3.5-5.1) 4.1 mmol/L (3.5-5.1) Chloride Level 103 mmol/L (98-107) 104 mmol/L (98-107) Carbon Dioxide Level 31 mmol/L (21-32) 30 mmol/L (21-32) Anion Gap 6 (6-14) 7 (6-14) Blood Urea Nitrogen 17 mg/dL (7-20) 17 mg/dL (7-20) Creatinine 0.5 mg/dL (0.6-1.0) 0.5 mg/dL (0.6-1.0) Estimated GFR (Cockcroft-Gault) 152.9 152.9 BUN/Creatinine Ratio 34 (6-20) 34 (6-20) Glucose Level 196 mg/dL (70-99) 186 mg/dL (70-99) Calcium Level 9.1 mg/dL (8.5-10.1) 8.1 mg/dL (8.5-10.1) Magnesium Level 2.2 mg/dL (1.8-2.4) Total Bilirubin 0.5 mg/dL (0.2-1.0) 0.7 mg/dL (0.2-1.0) Aspartate Amino Transf (AST/SGOT) 44 U/L (15-37) 40 U/L (15-37) Alanine Aminotransferase (ALT/SGPT) 105 U/L (14-59) 107 U/L (14-59) Alkaline Phosphatase 35 U/L (46-116) 32 U/L (46-116) Total Protein 6.2 g/dL (6.4-8.2) 5.5 g/dL (6.4-8.2) Albumin 3.6 g/dL (3.4-5.0) 3.5 g/dL (3.4-5.0) Albumin/Globulin Ratio 1.4 (1.0-1.7) 1.8 (1.0-1.7) Prothrombin Time 14.9 SEC (11.7-14.0) Prothromb Time International Ratio 1.2 (0.8-1.1) Activated Partial Thromboplast Time 26 SEC (24-38) Fibrinogen 121 mg/dL (200-440) Laboratory Tests Test 12/24/17 04:30 Sodium Level 141 mmol/L (136-145) Potassium Level 4.1 mmol/L (3.5-5.1) Chloride Level 104 mmol/L (98-107) Carbon Dioxide Level 30 mmol/L (21-32) Anion Gap 7 (6-14) Blood Urea Nitrogen 17 mg/dL (7-20) Creatinine 0.5 mg/dL (0.6-1.0) Estimated GFR (Cockcroft-Gault) 152.9 BUN/Creatinine Ratio 34 (6-20) Glucose Level 186 mg/dL (70-99) Calcium Level 8.1 mg/dL (8.5-10.1) Total Bilirubin 0.7 mg/dL (0.2-1.0) Aspartate Amino Transf (AST/SGOT) 40 U/L (15-37) Alanine Aminotransferase (ALT/SGPT) 107 U/L (14-59) Alkaline Phosphatase 32 U/L (46-116) Total Protein 5.5 g/dL (6.4-8.2) Albumin 3.5 g/dL (3.4-5.0) Albumin/Globulin Ratio 1.8 (1.0-1.7) Medications Current Medications Meclizine HCl (Antivert) 25 mg 1X ONCE PO Last administered on 12/17/17at 20:00 ; Start 12/17/17 at 20:00; Stop 12/17/17 at 20:01; Status DC Sodium Chloride 1,000 ml @ 1,000 mls/hr 1X ONCE IV Last administered on at 20:35; Start 12/17/17 at 20:15; Stop 12/17/17 at 21:14; Status DC Ketorolac Tromethamine (Toradol 15mg Vial) 15 mg 1X ONCE IV Last administered on 12/17/17at 20:36; Start 12/17/17 at 20:15; Stop 12/17/17 at 20:16; Status DC Diphenhydramine HCl (Benadryl) 25 mg 1X ONCE PO Last administered on at 02:16; Start 12/18/17 at 02:15; Stop 12/18/17 at 02:18; Status DC Acetaminophen (Tylenol) 500 mg PRN Q6HRS PRN PO MILD PAIN / TEMP; Start at 09:00 Acetaminophen/ Codeine Phosphate (Tylenol #3) 1 tab PRN Q6HRS PRN PO PAIN; Start 12/18/17 at 09:00; Stop 12/18/17 at 12:08; Status DC Ibuprofen (Motrin) 600 mg PRN Q6HRS PRN PO INFLAMMATION; Start 12/18/17 at 09: 00; Stop 12/19/17 at 16:23; Status DC Ondansetron HCl (Zofran) 4 mg PRN Q6HRS PRN IV NAUSEA/VOMITING Last administered on 12/24/17at 18:03; Start 12/18/17 at 09:00 Ondansetron HCl (Zofran Odt) 4 mg PRN Q6HRS PRN PO NAUSEA/VOMITING; Start 12/18 at 09:00; Stop 12/18/17 at 12:08; Status DC Fluticasone Propionate (Flonase) 1 spray DAILY NS Last administered on at 08:21; Start 12/18/17 at 09:00 Acetaminophen/ Hydrocodone Bitart (Lortab 7.5-325/ 15ml Oral Solution) 15 ml PRN Q4HRS PRN PO MODERATE PAIN; Start 12/18/17 at 09:00; Stop 12/19/17 at 16:23 ; Status DC Non-Formulary Medication (Albuterol Sulfate (Proair Hfa Inhaler)) 1 puff PRN Q6HRS PRN INH SHORTNESS OF BREATH; Start 12/18/17 at 09:00; Status UNV Amoxicillin (Amoxil) 750 mg BID PO Last administered on 12/18/17at 21:02; Start 12/18/17 at 10:00; Stop 12/19/17 at 16:23; Status DC Levothyroxine Sodium (Synthroid) 25 mcg DAILY07 PO ; Start 12/18/17 at 10:30; Stop 12/18/17 at 12:08; Status DC Prednisone (Prednisone) 50 mg DAILY PO ; Start 12/18/17 at 10:00; Stop 12/18/17 at 12:08; Status DC Alprazolam (Xanax) 0.25 mg PRN Q8HRS PRN PO ANXIETY / AGITATION; Start at 09:00; Stop 12/19/17 at 08:14; Status DC Zolpidem Tartrate (Ambien) 5 mg PRN QHS PRN PO INSOMNIA; Start 12/18/17 at 09: 00; Stop 12/18/17 at 12:08; Status DC Cetirizine HCl (ZyrTEC) 10 mg DAILY PO ; Start 12/18/17 at 10:00; Stop 12/18/17 at 12:08; Status DC Non-Formulary Medication 1 ea 1X ONCE IV ; Start 12/18/17 at 09:00; Stop at 09:01; Status UNV Potassium Chloride/Dextrose/ Sod Cl 1,000 ml @ 80 mls/hr [id number] IV Last administered on 12/19/17at 10:00; Start 12/18/17 at 09:00; Stop 12/20/17 at 09:07 ; Status DC Albuterol Sulfate (Ventolin Neb Soln) 2.5 mg PRN Q6HRS PRN NEB SHORTNESS OF BREATH Last administered on 12/18/17at 13:12; Start 12/18/17 at 09:30 Iohexol (Omnipaque 300 Mg/ml) 75 ml 1X ONCE IV Last administered on 12/18/17at 10:31; Start 12/18/17 at 10:15; Stop 12/18/17 at 10:16; Status DC Info (CONTRAST GIVEN -- Rx MONITORING) 1 each PRN DAILY PRN MC SEE COMMENTS; Start 12/18/17 at 10:15; Stop 12/20/17 at 10:14; Status DC Levothyroxine Sodium 15 mcg/ Sodium Chloride 5 ml @ 100 mls/hr DAILY IVP Last administered on 12/20/17at 09:41; Start 12/18/17 at 12:30; Stop 12/20/17 at 11:44 ; Status DC Lorazepam (Ativan) 1 mg PRN Q4HRS PRN IV ANXIETY / AGITATION Last administered on 12/24/17at 16:39; Start 12/18/17 at 13:15 Alprazolam (Xanax) 0.25 mg PRN Q8HRS PRN NG ANXIETY / AGITATION Last administered on 12/19/17at 01:13; Start 12/18/17 at 13:15; Stop 12/19/17 at 16:23 ; Status DC Pyridostigmine [place] (Mestinon) 60 mg BID NG Last administered on 12/18/17at 21:01; Start 12/18/17 at 13:00; Stop 12/19/17 at 16:23; Status DC Prednisone (Prednisone) 50 mg DAILY PO Last administered on 12/18/17at 16:03; Start 12/18/17 at 13:00; Stop 12/19/17 at 16:23; Status DC Famotidine (Pepcid) 20 mg QHS PO Last administered on 12/18/17at 21:01; Start at 21:00; Stop 12/19/17 at 16:23; Status DC Calcium Carbonate/ Glycine (Oscal) 500 mg TIDAFTMEAL PO ; Start 12/18/17 at 18: 00; Stop 12/19/17 at 16:23; Status DC Ergocalciferol (Vitamin D2) 50,000 unit MoTh PO ; Start 12/19/17 at 09:00; Stop 12/19/17 at 16:23; Status DC Lidocaine/Sodium Bicarbonate (Buffered Lidocaine 1%) 3 ml STK-MED ONCE .ROUTE ; Start 12/18/17 at 14:32; Stop 12/18/17 at 14:33; Status DC Heparin Sodium (Porcine) (Heparin Sodium) 10,000 unit STK-MED ONCE .ROUTE ; Start 12/18/17 at 14:32; Stop 12/18/17 at 14:33; Status DC Lidocaine/Sodium Bicarbonate (Buffered Lidocaine 1%) 3 ml 1X ONCE INJ Last administered on 12/18/17at 15:15; Start 12/18/17 at 15:15; Stop 12/18/17 at 15:16 ; Status DC Heparin Sodium (Porcine) (Heparin Sodium) 2,200 unit 1X ONCE INT CAT Last administered on 12/18/17at 15:15; Start 12/18/17 at 15:15; Stop 12/18/17 at 15:16 ; Status DC Scopolamine (Transderm-Scop) 1 patch 1X ONCE TD Last administered on at 21:41; Start 12/18/17 at 21:30; Stop 12/19/17 at 16:23; Status DC Albumin Human 1,500 ml @ 0 mls/hr 1X ONCE IV Last administered on 12/19/17at 11:38; Start 12/19/17 at 08:15; Stop 12/19/17 at 08:16; Status DC Heparin Sodium (Porcine) (Heparin Sodium) 10,000 unit STK-MED ONCE .ROUTE ; Start 12/19/17 at 08:40; Stop 12/19/17 at 08:41; Status DC Info (Tpn Per Pharmacy) 1 each PRN DAILY PRN MC SEE COMMENTS Last administered on 12/24/17at 10:57; Start 12/20/17 at 16:30 Pyridostigmine [place] (Regonol) 2.5 mg Q12HR IV Last administered on at 20:08; Start 12/19/17 at 21:00 Methylprednisolone Sodium Succinate (SOLU-Medrol 40MG VIAL) 40 mg Q12HR IV Last administered on 12/24/17at 20:09; Start 12/19/17 at 21:00 Famotidine (Pepcid Vial) 20 mg QHS IVP Last administered on 12/19/17at 21:33; Start 12/19/17 at 21:00; Stop 12/20/17 at 11:44; Status DC Morphine Sulfate (Morphine Sulfate) 2 mg PRN Q2HR PRN IV MODERATE TO SEVERE PAIN Last administered on 12/24/17at 04:33; Start 12/19/17 at 23:15 Amino Acids/ Glycerin/ Electrolytes 1,000 ml @ 80 mls/hr [id number] IV Last administered on 12/20/17at 09:57; Start 12/20/17 at 09:30; Stop 12/20/17 at 11:44 ; Status DC Alteplase, Recombinant (Cathflo) 2 mg 1X ONCE IV Last administered on at 12:37; Start 12/20/17 at 11:45; Stop 12/20/17 at 11:46; Status DC Cyclobenzaprine HCl (Flexeril) 5 mg QID PO Last administered on 12/21/17at 09:10 ; Start 12/20/17 at 17:00 Cyclobenzaprine HCl (Flexeril) 10 mg 1X ONCE PO ; Start 12/20/17 at 11:45; Stop 12/20/17 at 11:53; Status DC Levothyroxine Sodium (Synthroid) 25 mcg DAILY07 PO ; Start 12/21/17 at 07:00; Stop 12/21/17 at 07:00; Status DC Levothyroxine Sodium 12.5 mcg/ Sodium Chloride 5 ml @ 100 mls/hr DAILY IVP Last administered on 12/24/17at 08:23; Start 12/21/17 at 09:00 Sodium Chloride 90 meq/Potassium Chloride 50 meq/ Potassium Phosphate 13.6 mmol/ Magnesium Sulfate 5 meq/ Calcium Gluconate 5 meq/ Multivitamins 10 ml/Chromium/ Copper/Manganese/ Seleni/Zn 1 ml/ Total Parenteral Nutrition/Amino Acids/ Dextrose/ Fat Emulsion Intravenous 1,512 ml @ 63 mls/hr TPN CONT IV Last administered on 12/20/17at 20:58; Start 12/20/17 at 22:00; Stop 12/21/17 at 21:59 ; Status DC Albumin Human 1,200 ml @ 0 mls/hr 1X ONCE IV Last administered on 12/21/17at 10:40; Start 12/21/17 at 08:45; Stop 12/21/17 at 08:46; Status DC Heparin Sodium (Porcine) (Heparin Sodium) 10,000 unit STK-MED ONCE .ROUTE ; Start 12/21/17 at 08:50; Stop 12/21/17 at 08:51; Status DC Diphenhydramine HCl (Benadryl) 50 mg STK-MED ONCE .ROUTE ; Start 12/21/17 at 11: 46; Stop 12/21/17 at 11:47; Status DC Diphenhydramine HCl (Benadryl) 50 mg 1X ONCE IVP Last administered on at 11:59; Start 12/21/17 at 12:00; Stop 12/21/17 at 12:01; Status DC Sodium Chloride 90 meq/Potassium Chloride 50 meq/ Potassium Phosphate 13.6 mmol/ Magnesium Sulfate 5 meq/ Calcium Gluconate 5 meq/ Multivitamins 10 ml/Chromium/ Copper/Manganese/ Seleni/Zn 1 ml/ Total Parenteral Nutrition/Amino Acids/ Dextrose/ Fat Emulsion Intravenous 1,512 ml @ 63 mls/hr TPN CONT IV Last administered on 12/21/17at 22:00; Start 12/21/17 at 22:00; Stop 12/22/17 at 21:59 ; Status DC Sodium Chloride 90 meq/Potassium Chloride 50 meq/ Potassium Phosphate 13.6 mmol/ Magnesium Sulfate 5 meq/ Calcium Gluconate 5 meq/ Multivitamins 10 ml/Chromium/ Copper/Manganese/ Seleni/Zn 1 ml/ Total Parenteral Nutrition/Amino Acids/ Dextrose/ Fat Emulsion Intravenous 1,512 ml @ 63 mls/hr TPN CONT IV Last administered on 12/22/17at 21:26; Start 12/22/17 at 22:00; Stop 12/23/17 at 21:59 ; Status DC Famotidine (Pepcid Vial) 20 mg QHS IVP Last administered on 12/24/17at 20:08; Start 12/23/17 at 21:00 Sodium Chloride 90 meq/Potassium Chloride 50 meq/ Potassium Phosphate 13.6 mmol/ Magnesium Sulfate 5 meq/ Calcium Gluconate 5 meq/ Multivitamins 10 ml/Chromium/ Copper/Manganese/ Seleni/Zn 1 ml/ Total Parenteral Nutrition/Amino Acids/ Dextrose/ Fat Emulsion Intravenous 1,512 ml @ 63 mls/hr TPN CONT IV Last administered on 12/23/17at 21:10; Start 12/23/17 at 22:00; Stop 12/24/17 at 21:59 Diphenhydramine HCl (Benadryl) 50 mg 1X ONCE IVP Last administered on at 17:33; Start 12/23/17 at 12:00; Stop 12/23/17 at 12:23; Status DC Albumin Human 1,500 ml @ 125 mls/hr 1X ONCE IV Last administered on at 17:34; Start 12/23/17 at 12:30; Stop 12/24/17 at 00:29; Status DC Heparin Sodium (Porcine) (Heparin Sodium) 10,000 unit STK-MED ONCE .ROUTE ; Start 12/23/17 at 14:57; Stop 12/23/17 at 14:58; Status DC Oxycodone/ Acetaminophen (Percocet 5/325) 1 tab PRN Q6HRS PRN PO PAIN; Start 12/23/17 at 20:45; Status Cancel Sodium Chloride 90 meq/Potassium Chloride 50 meq/ Potassium Phosphate 13.6 mmol/ Magnesium Sulfate 5 meq/ Calcium Gluconate 5 meq/ Multivitamins 10 ml/Chromium/ Copper/Manganese/ Seleni/Zn 1 ml/ Total Parenteral Nutrition/Amino Acids/ Dextrose/ Fat Emulsion Intravenous 1,512 ml @ 63 mls/hr TPN CONT IV ; Start 12/24/17 at 22:00; Stop 12/25/17 at 21:59 Active Scripts Active Reported Amoxicillin 875 Mg Tablet 1 Tab PO BID Levothyroxine Sodium 25 Mcg Tablet 1 Tab PO DAILY Proair Hfa Inhaler (Albuterol Sulfate) 8.5 Gm Hfa.aer.ad 1 Puff INH PRN Q6HRS PRN [kaitlib fe] Hydrocodone-Apap 7.5-325/15 Soln (Hydrocodone Bit/Acetaminophen) 15 Ml Solution 15 Ml PO PRN Q4HRS PRN Prednisone 50 Mg Tablet 1 Tab PO DAILY Fluticasone Propionate Nasal [place] (Fluticasone Propionate) 16 Gm [place].susp 1 [place] NS DAILY [zoloft] [ativan] Vitals/I & O Vital Sign - Last 24 Hours 12/23/17 12/23/17 12/24/17 12/24/17 21:31 23:15 01:31 03:15 Temp 98.0 97.4 98.0 97.4 Pulse 81 73 Resp 18 18 B/P (MAP) 144/93 (110) 139/87 (104) Pulse Ox 96 96 O2 Delivery Room Air Room Air Room Air Room Air 12/24/17 12/24/17 12/24/17 12/24/17 04:33 05:03 07:00 08:00 Temp 96.4 96.4 Pulse 73 Resp 16 B/P (MAP) 146/88 (107) Pulse Ox 97 O2 Delivery Room Air Room Air Room Air Room Air 12/24/17 12/24/17 12/24/17 12/24/17 11:00 15:00 19:00 20:10 Temp 97.5 97.5 97.9 97.5 97.5 97.9 Pulse 84 92 89 102 Resp 16 16 20 B/P (MAP) 143/87 (105) 144/92 (109) 126/77 (93) Pulse Ox 95 96 96 O2 Delivery Room Air Room Air Room Air Intake and Output 12/23/17 12/23/17 12/24/17 15:00 23:00 07:00 Intake Total 0 ml 0 ml Output Total 2 ml Balance 0 ml -2 ml SINDY SANTILLAN MD Dec 24, 2017 21:14
[2017-12-24] MEDS ORDERED: AMINO ACIDS IV SCH ×10 (22:00)
[2017-12-24] MEDS ORDERED: TOTAL PARENTERAL NUTRITION IV SCH ×10 (22:00)
[2017-12-24] MEDS ORDERED: DEXTROSE 70% IV SCH ×10 (22:00)
[2017-12-24] MEDS ORDERED: [UNRECOGNIZED DRUG - OTHER] IV SCH ×10 (22:00)
[2017-12-24 23:00] VITALS: BP 128/91
[2017-12-25] MEDS: MORPHINE SULFATE 2 MG/ML VIAL. IV PRN ×4 (02:44→21:54)
[2017-12-25 03:00] VITALS: BP 132/74
[2017-12-25 05:26] LABS: BASO % 0 % (0-3); EOS % 0 % (0-3); HEMOGLOBIN 14.1 g/dL (12.0-15.5); LYMPH % 9 % (24-48); MEAN CORPUSCULAR HEMOGLOBIN 28 pg (25-35); MEAN CORPUSCULAR HGB CONC 34 g/dL (31-37); MEAN CORPUSCULAR VOLUME 84 fL (79-100); MONO % 9 % (0-9); NEUT % 82 % (31-73); PLATELET COUNT 112 x10^3/uL (140-400); PROTHROMBIN TIME PATIENT 14.4 SEC (11.7-14.0); RED BLOOD COUNT 5.01 x10^6/uL (3.50-5.40); RED CELL DISTRIBUTION WIDTH 12.4 % (11.5-14.5)
[2017-12-25 05:44] LABS: ALBUMIN 3.4 g/dL (3.4-5.0); ALBUMIN/GLOBULIN RATIO 1.4 (1.0-1.7); CREATININE 0.5 mg/dL (0.6-1.0); GFR 152.9; MAGNESIUM 2.3 mg/dL (1.8-2.4); POTASSIUM 4.4 mmol/L (3.5-5.1); TOTAL BILIRUBIN 0.5 mg/dL (0.2-1.0); TOTAL PROTEIN 5.8 g/dL (6.4-8.2)
[2017-12-25 07:00] VITALS: BP 130/85
[2017-12-25] MEDS: methylPREDNISolone SOD SUCC PF 40 MG/ML VIAL. IV SCH ×2 (08:06→19:51)
[2017-12-25] MEDS: PYRIDOSTIGMINE BROMIDE 10 MG/2 ML AMPUL. IV SCH ×2 (08:06→19:52)
[2017-12-25] MEDS: CYCLOBENZAPRINE 10 MG TABLET. PO SCH ×4 (08:08→20:02)
[2017-12-25] MEDS: FLUTICASONE 50MCG/NASAL SPRAY 16GM BOTTLE. NS SCH (08:08)
[2017-12-25] MEDS: NORMAL SALINE IVP SCH (08:11)
[2017-12-25] MEDS: LEVOTHYROXINE SODIUM IVP SCH (08:11)
[2017-12-25] MEDS ORDERED: HEPARIN for IV BOLUS 10,000 UNIT/10 ML VIAL. IV ONE (09:15)
[2017-12-25] MEDS ORDERED: diphenhydrAMINE 50 MG/ML VIAL IVP ONE (09:30)
[2017-12-25] MEDS ORDERED: CALCIUM GLUCONATE 2,000 MG in IV DEXTROSE 5% 100ML 100 ML IV ONE (10:00)
[2017-12-25] MEDS ORDERED: ALBUMIN HUMAN 5% IV ONE (10:45)
[2017-12-25] MEDS ORDERED: ALBUMIN HUMAN 5% 1,500 ML IV ONE (10:45)
[2017-12-25 11:00] VITALS: BP 146/91
--- NOTE | 2017-12-25 11:41 | PDOC ---
PROGRESS NOTES Assessment Problems Medical Problems: (1) Diplopia Status: Acute (2) Marijuana abuse Status: Acute (3) Myasthenia gravis with acute exacerbation Status: Acute (4) Neck muscle weakness Status: Acute (5) RUE weakness Status: Acute (6) Sinusitis Status: Acute Myasthenia gravis, on steroids and 3 plasmaphereses, a little worse, we can see a joshua sometimes within a week of starting steroids, I explained to the patient and her mother. Myasthenia serology is positive Chest CT negative for thymoma Also has Eze's thyroiditis Also has anxiety disorder Also has elevated transaminases and positive Hepatitis B surface anybody Plan Speech therapy Monitor negative inspiratory force Plasmapheresis QOD, now plan on continuing through 01/01 IV steroids Increase pyridostigmine She needs a PEG tube, cannot tolerate NG and risks of prolonged use of parenteral nutrition G.I. consult regarding the PEG as well as elevated transaminases All above discussed with patient, mother, and Dr. Schultz Subjective Body feels stronger, but voice is weak as is swallowing Objective Vital Signs Date Time Temp Pulse Resp B/P (MAP) Pulse Ox O2 Delivery O2 Flow Rate FiO2 12/25/17 11:00 97.5 103 16 146/91 (109) 99 Room Air 97.5 Intake and Output 12/25/17 07:00 Intake Total 0 ml Balance 0 ml Intake Oral 0 ml # Voids 2 PHYSICAL EXAM Alert. Oriented to time, place and person. PERRL. EOMI. CN: no focal findings. no diplopia. Voice is weaker, hypernasal again Muscle tone: normal. Muscle strength: 5/5 DTR: 2+ Plantar reflex: Flexor Gait: not examined in bed. Sensory exam: no abnormal findings. No cerebellar signs elicited. Review of Relevant I have reviewed the following items maliha (where applicable) has been applied. Labs Laboratory Tests Test 12/24/17 04:30 12/25/17 05:00 Sodium Level 141 mmol/L (136-145) 141 mmol/L (136-145) Potassium Level 4.1 mmol/L (3.5-5.1) 4.4 mmol/L (3.5-5.1) Chloride Level 104 mmol/L (98-107) 103 mmol/L (98-107) Carbon Dioxide Level 30 mmol/L (21-32) 31 mmol/L (21-32) Anion Gap 7 (6-14) 7 (6-14) Blood Urea Nitrogen 17 mg/dL (7-20) 18 mg/dL (7-20) Creatinine 0.5 mg/dL (0.6-1.0) 0.5 mg/dL (0.6-1.0) Estimated GFR (Cockcroft-Gault) 152.9 152.9 BUN/Creatinine Ratio 34 (6-20) 36 (6-20) Glucose Level 186 mg/dL (70-99) 216 mg/dL (70-99) Calcium Level 8.1 mg/dL (8.5-10.1) 8.0 mg/dL (8.5-10.1) Total Bilirubin 0.7 mg/dL (0.2-1.0) 0.5 mg/dL (0.2-1.0) Aspartate Amino Transf (AST/SGOT) 40 U/L (15-37) 57 U/L (15-37) Alanine Aminotransferase (ALT/SGPT) 107 U/L (14-59) 199 U/L (14-59) Alkaline Phosphatase 32 U/L (46-116) 44 U/L (46-116) Total Protein 5.5 g/dL (6.4-8.2) 5.8 g/dL (6.4-8.2) Albumin 3.5 g/dL (3.4-5.0) 3.4 g/dL (3.4-5.0) Albumin/Globulin Ratio 1.8 (1.0-1.7) 1.4 (1.0-1.7) White Blood Count 11.0 x10^3/uL (4.0-11.0) Red Blood Count 5.01 x10^6/uL (3.50-5.40) Hemoglobin 14.1 g/dL (12.0-15.5) Hematocrit 42.0 % (36.0-47.0) Mean Corpuscular Volume 84 fL (79-100) Mean Corpuscular Hemoglobin 28 pg (25-35) Mean Corpuscular Hemoglobin Concent 34 g/dL (31-37) Red Cell Distribution Width 12.4 % (11.5-14.5) Platelet Count 112 x10^3/uL (140-400) Neutrophils (%) (Auto) 82 % (31-73) Lymphocytes (%) (Auto) 9 % (24-48) Monocytes (%) (Auto) 9 % (0-9) Eosinophils (%) (Auto) 0 % (0-3) Basophils (%) (Auto) 0 % (0-3) Neutrophils # (Auto) 9.0 x10^3uL (1.8-7.7) Lymphocytes # (Auto) 1.0 x10^3/uL (1.0-4.8) Monocytes # (Auto) 1.0 x10^3/uL (0.0-1.1) Eosinophils # (Auto) 0.0 x10^3/uL (0.0-0.7) Basophils # (Auto) 0.0 x10^3/uL (0.0-0.2) Prothrombin Time 14.4 SEC (11.7-14.0) Prothromb Time International Ratio 1.2 (0.8-1.1) Activated Partial Thromboplast Time 27 SEC (24-38) Fibrinogen 127 mg/dL (200-440) Magnesium Level 2.3 mg/dL (1.8-2.4) Laboratory Tests Test 12/25/17 05:00 White Blood Count 11.0 x10^3/uL (4.0-11.0) Red Blood Count 5.01 x10^6/uL (3.50-5.40) Hemoglobin 14.1 g/dL (12.0-15.5) Hematocrit 42.0 % (36.0-47.0) Mean Corpuscular Volume 84 fL (79-100) Mean Corpuscular Hemoglobin 28 pg (25-35) Mean Corpuscular Hemoglobin Concent 34 g/dL (31-37) Red Cell Distribution Width 12.4 % (11.5-14.5) Platelet Count 112 x10^3/uL (140-400) Neutrophils (%) (Auto) 82 % (31-73) Lymphocytes (%) (Auto) 9 % (24-48) Monocytes (%) (Auto) 9 % (0-9) Eosinophils (%) (Auto) 0 % (0-3) Basophils (%) (Auto) 0 % (0-3) Neutrophils # (Auto) 9.0 x10^3uL (1.8-7.7) Lymphocytes # (Auto) 1.0 x10^3/uL (1.0-4.8) Monocytes # (Auto) 1.0 x10^3/uL (0.0-1.1) Eosinophils # (Auto) 0.0 x10^3/uL (0.0-0.7) Basophils # (Auto) 0.0 x10^3/uL (0.0-0.2) Prothrombin Time 14.4 SEC (11.7-14.0) Prothromb Time International Ratio 1.2 (0.8-1.1) Activated Partial Thromboplast Time 27 SEC (24-38) Fibrinogen 127 mg/dL (200-440) Sodium Level 141 mmol/L (136-145) Potassium Level 4.4 mmol/L (3.5-5.1) Chloride Level 103 mmol/L (98-107) Carbon Dioxide Level 31 mmol/L (21-32) Anion Gap 7 (6-14) Blood Urea Nitrogen 18 mg/dL (7-20) Creatinine 0.5 mg/dL (0.6-1.0) Estimated GFR (Cockcroft-Gault) 152.9 BUN/Creatinine Ratio 36 (6-20) Glucose Level 216 mg/dL (70-99) Calcium Level 8.0 mg/dL (8.5-10.1) Magnesium Level 2.3 mg/dL (1.8-2.4) Total Bilirubin 0.5 mg/dL (0.2-1.0) Aspartate Amino Transf (AST/SGOT) 57 U/L (15-37) Alanine Aminotransferase (ALT/SGPT) 199 U/L (14-59) Alkaline Phosphatase 44 U/L (46-116) Total Protein 5.8 g/dL (6.4-8.2) Albumin 3.4 g/dL (3.4-5.0) Albumin/Globulin Ratio 1.4 (1.0-1.7) Medications Current Medications Meclizine HCl (Antivert) 25 mg 1X ONCE PO Last administered on 12/17/17at 20:00 ; Start 12/17/17 at 20:00; Stop 12/17/17 at 20:01; Status DC Sodium Chloride 1,000 ml @ 1,000 mls/hr 1X ONCE IV Last administered on at 20:35; Start 12/17/17 at 20:15; Stop 12/17/17 at 21:14; Status DC Ketorolac Tromethamine (Toradol 15mg Vial) 15 mg 1X ONCE IV Last administered on 12/17/17at 20:36; Start 12/17/17 at 20:15; Stop 12/17/17 at 20:16; Status DC Diphenhydramine HCl (Benadryl) 25 mg 1X ONCE PO Last administered on at 02:16; Start 12/18/17 at 02:15; Stop 12/18/17 at 02:18; Status DC Acetaminophen (Tylenol) 500 mg PRN Q6HRS PRN PO MILD PAIN / TEMP; Start at 09:00 Acetaminophen/ Codeine Phosphate (Tylenol #3) 1 tab PRN Q6HRS PRN PO PAIN; Start 12/18/17 at 09:00; Stop 12/18/17 at 12:08; Status DC Ibuprofen (Motrin) 600 mg PRN Q6HRS PRN PO INFLAMMATION; Start 12/18/17 at 09: 00; Stop 12/19/17 at 16:23; Status DC Ondansetron HCl (Zofran) 4 mg PRN Q6HRS PRN IV NAUSEA/VOMITING Last administered on 12/24/17at 18:03; Start 12/18/17 at 09:00 Ondansetron HCl (Zofran Odt) 4 mg PRN Q6HRS PRN PO NAUSEA/VOMITING; Start 12/18 at 09:00; Stop 12/18/17 at 12:08; Status DC Fluticasone Propionate (Flonase) 1 spray DAILY NS Last administered on at 08:08; Start 12/18/17 at 09:00 Acetaminophen/ Hydrocodone Bitart (Lortab 7.5-325/ 15ml Oral Solution) 15 ml PRN Q4HRS PRN PO MODERATE PAIN; Start 12/18/17 at 09:00; Stop 12/19/17 at 16:23 ; Status DC Non-Formulary Medication (Albuterol Sulfate (Proair Hfa Inhaler)) 1 puff PRN Q6HRS PRN INH SHORTNESS OF BREATH; Start 12/18/17 at 09:00; Status UNV Amoxicillin (Amoxil) 750 mg BID PO Last administered on 12/18/17at 21:02; Start 12/18/17 at 10:00; Stop 12/19/17 at 16:23; Status DC Levothyroxine Sodium (Synthroid) 25 mcg DAILY07 PO ; Start 12/18/17 at 10:30; Stop 12/18/17 at 12:08; Status DC Prednisone (Prednisone) 50 mg DAILY PO ; Start 12/18/17 at 10:00; Stop 12/18/17 at 12:08; Status DC Alprazolam (Xanax) 0.25 mg PRN Q8HRS PRN PO ANXIETY / AGITATION; Start at 09:00; Stop 12/19/17 at 08:14; Status DC Zolpidem Tartrate (Ambien) 5 mg PRN QHS PRN PO INSOMNIA; Start 12/18/17 at 09: 00; Stop 12/18/17 at 12:08; Status DC Cetirizine HCl (ZyrTEC) 10 mg DAILY PO ; Start 12/18/17 at 10:00; Stop 12/18/17 at 12:08; Status DC Non-Formulary Medication 1 ea 1X ONCE IV ; Start 12/18/17 at 09:00; Stop at 09:01; Status UNV Potassium Chloride/Dextrose/ Sod Cl 1,000 ml @ 80 mls/hr [id number] IV Last administered on 12/19/17at 10:00; Start 12/18/17 at 09:00; Stop 12/20/17 at 09:07 ; Status DC Albuterol Sulfate (Ventolin Neb Soln) 2.5 mg PRN Q6HRS PRN NEB SHORTNESS OF BREATH Last administered on 12/18/17at 13:12; Start 12/18/17 at 09:30 Iohexol (Omnipaque 300 Mg/ml) 75 ml 1X ONCE IV Last administered on 12/18/17at 10:31; Start 12/18/17 at 10:15; Stop 12/18/17 at 10:16; Status DC Info (CONTRAST GIVEN -- Rx MONITORING) 1 each PRN DAILY PRN MC SEE COMMENTS; Start 12/18/17 at 10:15; Stop 12/20/17 at 10:14; Status DC Levothyroxine Sodium 15 mcg/ Sodium Chloride 5 ml @ 100 mls/hr DAILY IVP Last administered on 12/20/17at 09:41; Start 12/18/17 at 12:30; Stop 12/20/17 at 11:44 ; Status DC Lorazepam (Ativan) 1 mg PRN Q4HRS PRN IV ANXIETY / AGITATION Last administered on 12/25/17at 08:07; Start 12/18/17 at 13:15 Alprazolam (Xanax) 0.25 mg PRN Q8HRS PRN NG ANXIETY / AGITATION Last administered on 12/19/17at 01:13; Start 12/18/17 at 13:15; Stop 12/19/17 at 16:23 ; Status DC Pyridostigmine Petty (Mestinon) 60 mg BID NG Last administered on 12/18/17at 21:01; Start 12/18/17 at 13:00; Stop 12/19/17 at 16:23; Status DC Prednisone (Prednisone) 50 mg DAILY PO Last administered on 12/18/17at 16:03; Start 12/18/17 at 13:00; Stop 12/19/17 at 16:23; Status DC Famotidine (Pepcid) 20 mg QHS PO Last administered on 12/18/17at 21:01; Start at 21:00; Stop 12/19/17 at 16:23; Status DC Calcium Carbonate/ Glycine (Oscal) 500 mg TIDAFTMEAL PO ; Start 12/18/17 at 18: 00; Stop 12/19/17 at 16:23; Status DC Ergocalciferol (Vitamin D2) 50,000 unit MoTh PO ; Start 12/19/17 at 09:00; Stop 12/19/17 at 16:23; Status DC Lidocaine/Sodium Bicarbonate (Buffered Lidocaine 1%) 3 ml STK-MED ONCE .ROUTE ; Start 12/18/17 at 14:32; Stop 12/18/17 at 14:33; Status DC Heparin Sodium (Porcine) (Heparin Sodium) 10,000 unit STK-MED ONCE .ROUTE ; Start 12/18/17 at 14:32; Stop 12/18/17 at 14:33; Status DC Lidocaine/Sodium Bicarbonate (Buffered Lidocaine 1%) 3 ml 1X ONCE INJ Last administered on 12/18/17at 15:15; Start 12/18/17 at 15:15; Stop 12/18/17 at 15:16 ; Status DC Heparin Sodium (Porcine) (Heparin Sodium) 2,200 unit 1X ONCE INT CAT Last administered on 12/18/17at 15:15; Start 12/18/17 at 15:15; Stop 12/18/17 at 15:16 ; Status DC Scopolamine (Transderm-Scop) 1 patch 1X ONCE TD Last administered on at 21:41; Start 12/18/17 at 21:30; Stop 12/19/17 at 16:23; Status DC Albumin Human 1,500 ml @ 0 mls/hr 1X ONCE IV Last administered on 12/19/17at 11:38; Start 12/19/17 at 08:15; Stop 12/19/17 at 08:16; Status DC Heparin Sodium (Porcine) (Heparin Sodium) 10,000 unit STK-MED ONCE .ROUTE ; Start 12/19/17 at 08:40; Stop 12/19/17 at 08:41; Status DC Info (Tpn Per Pharmacy) 1 each PRN DAILY PRN MC SEE COMMENTS Last administered on 12/24/17at 10:57; Start 12/20/17 at 16:30 Pyridostigmine Petty (Regonol) 2.5 mg Q12HR IV Last administered on 08:06; Start 12/19/17 at 21:00 Methylprednisolone Sodium Succinate (SOLU-Medrol 40MG VIAL) 40 mg Q12HR IV Last administered on 12/25/17 08:06; Start 12/19/17 at 21:00 Famotidine (Pepcid Vial) 20 mg QHS IVP Last administered on 12/19/17at 21:33; Start 12/19/17 at 21:00; Stop 12/20/17 at 11:44; Status DC Morphine Sulfate (Morphine Sulfate) 2 mg PRN Q2HR PRN IV MODERATE TO SEVERE PAIN Last administered on 12/25/17 08:08; Start 12/19/17 at 23:15 Amino Acids/ Glycerin/ Electrolytes 1,000 ml @ 80 mls/hr [id number] IV Last administered on 12/20/17at 09:57; Start 12/20/17 at 09:30; Stop 12/20/17 at 11:44 ; Status DC Alteplase, Recombinant (Cathflo) 2 mg 1X ONCE IV Last administered on at 12:37; Start 12/20/17 at 11:45; Stop 12/20/17 at 11:46; Status DC Cyclobenzaprine HCl (Flexeril) 5 mg QID PO Last administered on 12/21/17at 09:10 ; Start 12/20/17 at 17:00 Cyclobenzaprine HCl (Flexeril) 10 mg 1X ONCE PO ; Start 12/20/17 at 11:45; Stop 12/20/17 at 11:53; Status DC Levothyroxine Sodium (Synthroid) 25 mcg DAILY07 PO ; Start 12/21/17 at 07:00; Stop 12/21/17 at 07:00; Status DC Levothyroxine Sodium 12.5 mcg/ Sodium Chloride 5 ml @ 100 mls/hr DAILY IVP Last administered on 12/25/17at 08:11; Start 12/21/17 at 09:00 Sodium Chloride 90 meq/Potassium Chloride 50 meq/ Potassium Phosphate 13.6 mmol/ Magnesium Sulfate 5 meq/ Calcium Gluconate 5 meq/ Multivitamins 10 ml/Chromium/ Copper/Manganese/ Seleni/Zn 1 ml/ Total Parenteral Nutrition/Amino Acids/ Dextrose/ Fat Emulsion Intravenous 1,512 ml @ 63 mls/hr TPN CONT IV Last administered on 12/20/17at 20:58; Start 12/20/17 at 22:00; Stop 12/21/17 at 21:59 ; Status DC Albumin Human 1,200 ml @ 0 mls/hr 1X ONCE IV Last administered on 12/21/17at 10:40; Start 12/21/17 at 08:45; Stop 12/21/17 at 08:46; Status DC Heparin Sodium (Porcine) (Heparin Sodium) 10,000 unit STK-MED ONCE .ROUTE ; Start 12/21/17 at 08:50; Stop 12/21/17 at 08:51; Status DC Diphenhydramine HCl (Benadryl) 50 mg STK-MED ONCE .ROUTE ; Start 12/21/17 at 11: 46; Stop 12/21/17 at 11:47; Status DC Diphenhydramine HCl (Benadryl) 50 mg 1X ONCE IVP Last administered on at 11:59; Start 12/21/17 at 12:00; Stop 12/21/17 at 12:01; Status DC Sodium Chloride 90 meq/Potassium Chloride 50 meq/ Potassium Phosphate 13.6 mmol/ Magnesium Sulfate 5 meq/ Calcium Gluconate 5 meq/ Multivitamins 10 ml/Chromium/ Copper/Manganese/ Seleni/Zn 1 ml/ Total Parenteral Nutrition/Amino Acids/ Dextrose/ Fat Emulsion Intravenous 1,512 ml @ 63 mls/hr TPN CONT IV Last administered on 12/21/17at 22:00; Start 12/21/17 at 22:00; Stop 12/22/17 at 21:59 ; Status DC Sodium Chloride 90 meq/Potassium Chloride 50 meq/ Potassium Phosphate 13.6 mmol/ Magnesium Sulfate 5 meq/ Calcium Gluconate 5 meq/ Multivitamins 10 ml/Chromium/ Copper/Manganese/ Seleni/Zn 1 ml/ Total Parenteral Nutrition/Amino Acids/ Dextrose/ Fat Emulsion Intravenous 1,512 ml @ 63 mls/hr TPN CONT IV Last administered on 12/22/17at 21:26; Start 12/22/17 at 22:00; Stop 12/23/17 at 21:59 ; Status DC Famotidine (Pepcid Vial) 20 mg QHS IVP Last administered on 12/24/17at 20:08; Start 12/23/17 at 21:00 Sodium Chloride 90 meq/Potassium Chloride 50 meq/ Potassium Phosphate 13.6 mmol/ Magnesium Sulfate 5 meq/ Calcium Gluconate 5 meq/ Multivitamins 10 ml/Chromium/ Copper/Manganese/ Seleni/Zn 1 ml/ Total Parenteral Nutrition/Amino Acids/ Dextrose/ Fat Emulsion Intravenous 1,512 ml @ 63 mls/hr TPN CONT IV Last administered on 12/23/17at 21:10; Start 12/23/17 at 22:00; Stop 12/24/17 at 21:59 ; Status DC Diphenhydramine HCl (Benadryl) 50 mg 1X ONCE IVP Last administered on at 17:33; Start 12/23/17 at 12:00; Stop 12/23/17 at 12:23; Status DC Albumin Human 1,500 ml @ 125 mls/hr 1X ONCE IV Last administered on at 17:34; Start 12/23/17 at 12:30; Stop 12/24/17 at 00:29; Status DC Heparin Sodium (Porcine) (Heparin Sodium) 10,000 unit STK-MED ONCE .ROUTE ; Start 12/23/17 at 14:57; Stop 12/23/17 at 14:58; Status DC Oxycodone/ Acetaminophen (Percocet 5/325) 1 tab PRN Q6HRS PRN PO PAIN; Start 12/23/17 at 20:45; Status Cancel Sodium Chloride 90 meq/Potassium Chloride 50 meq/ Potassium Phosphate 13.6 mmol/ Magnesium Sulfate 5 meq/ Calcium Gluconate 5 meq/ Multivitamins 10 ml/Chromium/ Copper/Manganese/ Seleni/Zn 1 ml/ Total Parenteral Nutrition/Amino Acids/ Dextrose/ Fat Emulsion Intravenous 1,512 ml @ 63 mls/hr TPN CONT IV Last administered on 12/24/17at 21:11; Start 12/24/17 at 22:00; Stop 12/25/17 at 21:59 Calcium Gluconate 2000 mg/Dextrose 120 ml @ 220 mls/hr 1X ONCE IV Last administered on 12/25/17at 09:51; Start 12/25/17 at 10:00; Stop 12/25/17 at 10:32 ; Status DC Diphenhydramine HCl (Benadryl) 50 mg 1X ONCE IVP ; Start 12/25/17 at 09:30; Stop 12/25/17 at 09:31; Status DC Heparin Sodium (Porcine) (Heparin Sodium) 3,000 unit 1X ONCE IV ; Start at 09:15; Stop 12/25/17 at 09:16; Status DC Albumin Human 1,500 ml @ 0 mls/hr 1X ONCE IV ; Start 12/25/17 at 10:45; Stop 12/25/17 at 10:46; Status DC Albumin Human 200 ml @ 0 mls/hr 1X ONCE IV ; Start 12/25/17 at 10:45; Stop 12/25/17 at 10:46; Status DC Active Scripts Active Reported Amoxicillin 875 Mg Tablet 1 Tab PO BID Levothyroxine Sodium 25 Mcg Tablet 1 Tab PO DAILY Proair Hfa Inhaler (Albuterol Sulfate) 8.5 Gm Hfa.aer.ad 1 Puff INH PRN Q6HRS PRN [kaitlib fe] Hydrocodone-Apap 7.5-325/15 Soln (Hydrocodone Bit/Acetaminophen) 15 Ml Solution 15 Ml PO PRN Q4HRS PRN Prednisone 50 Mg Tablet 1 Tab PO DAILY Fluticasone Propionate Nasal [place] (Fluticasone Propionate) 16 Gm [place].susp 1 [place] NS DAILY [zoloft] [ativan] Vitals/I & O Vital Sign - Last 24 Hours 12/24/17 12/24/17 12/24/17 12/24/17 15:00 19:00 20:00 20:10 Temp 97.5 97.9 97.5 97.9 Pulse 92 89 102 Resp 16 20 B/P (MAP) 144/92 (109) 126/77 (93) Pulse Ox 96 96 O2 Delivery Room Air Room Air Room Air 12/24/17 12/24/17 12/25/17 12/25/17 21:06 23:00 02:44 03:00 Temp 97.5 97.5 97.5 97.5 Pulse 98 78 Resp 18 18 B/P (MAP) 128/91 (103) 132/74 (93) Pulse Ox 99 97 O2 Delivery Room Air Room Air Room Air Room Air 12/25/17 12/25/17 12/25/17 12/25/17 03:14 07:00 08:00 08:08 Temp 97.5 97.5 Pulse 87 Resp 16 19 B/P (MAP) 130/85 (100) Pulse Ox 97 O2 Delivery Room Air Room Air Room Air Room Air 12/25/17 11:00 Temp 97.5 97.5 Pulse 103 Resp 16 B/P (MAP) 146/91 (109) Pulse Ox 99 O2 Delivery Room Air Intake and Output 12/24/17 12/24/17 12/25/17 15:00 23:00 07:00 Intake Total 0 ml 0 ml Balance 0 ml 0 ml GAURAV BARONE MD Dec 25, 2017 11:41
--- NOTE | 2017-12-25 12:14 | PDOC2 ---
GI CONSULT Reason For Consult: PEG consideration and Hepatitis HPI: HPI: History from chart, staff, pt, and mother. 22 y/o female, new diagnosis of myasthenia gravis and associated dysphagia. Dobhoff tube placement attempted and not tolerated. Currently on TPN. GI asked to see re: possible PEG. No significant GI history. No previous EGD or colonoscopy. Noted w/ elevated LFTs and Hep B s Antibody reactive (surface antigen non- reactive). Mother says no vaccines given due to another child w/ autism, but pt thinks she might have had Hep B vaccine in high school. PMH: PMH: Eze's FH: Family History: No pertinent hx ( negative for neuromuscular disease, parents are in good health) Social History: Smoke: No ALCOHOL: none Drugs: None ROS: GEN: Denies fevers, chills, sweats HEENT: Denies blurred vision, sore throat CV: Denies chest pain RESP: +SOA - "can't lay down" GI: Per HPI : Denies hematuria, dysuria ENDO: Denies weight changes NEURO/MSK: +weakness SKIN: Denies jaundice, pruritus Vitals: Vitals: Vital Signs Date Time Temp Pulse Resp B/P (MAP) Pulse Ox O2 Delivery O2 Flow Rate FiO2 12/25/17 11:00 97.5 103 16 146/91 (109) 99 Room Air 97.5 Labs: Labs: Laboratory Tests Test 12/25/17 05:00 White Blood Count 11.0 x10^3/uL (4.0-11.0) Red Blood Count 5.01 x10^6/uL (3.50-5.40) Hemoglobin 14.1 g/dL (12.0-15.5) Hematocrit 42.0 % (36.0-47.0) Mean Corpuscular Volume 84 fL (79-100) Mean Corpuscular Hemoglobin 28 pg (25-35) Mean Corpuscular Hemoglobin Concent 34 g/dL (31-37) Red Cell Distribution Width 12.4 % (11.5-14.5) Platelet Count 112 x10^3/uL (140-400) Neutrophils (%) (Auto) 82 % (31-73) Lymphocytes (%) (Auto) 9 % (24-48) Monocytes (%) (Auto) 9 % (0-9) Eosinophils (%) (Auto) 0 % (0-3) Basophils (%) (Auto) 0 % (0-3) Neutrophils # (Auto) 9.0 x10^3uL (1.8-7.7) Lymphocytes # (Auto) 1.0 x10^3/uL (1.0-4.8) Monocytes # (Auto) 1.0 x10^3/uL (0.0-1.1) Eosinophils # (Auto) 0.0 x10^3/uL (0.0-0.7) Basophils # (Auto) 0.0 x10^3/uL (0.0-0.2) Prothrombin Time 14.4 SEC (11.7-14.0) Prothromb Time International Ratio 1.2 (0.8-1.1) Activated Partial Thromboplast Time 27 SEC (24-38) Fibrinogen 127 mg/dL (200-440) Sodium Level 141 mmol/L (136-145) Potassium Level 4.4 mmol/L (3.5-5.1) Chloride Level 103 mmol/L (98-107) Carbon Dioxide Level 31 mmol/L (21-32) Anion Gap 7 (6-14) Blood Urea Nitrogen 18 mg/dL (7-20) Creatinine 0.5 mg/dL (0.6-1.0) Estimated GFR (Cockcroft-Gault) 152.9 BUN/Creatinine Ratio 36 (6-20) Glucose Level 216 mg/dL (70-99) Calcium Level 8.0 mg/dL (8.5-10.1) Magnesium Level 2.3 mg/dL (1.8-2.4) Total Bilirubin 0.5 mg/dL (0.2-1.0) Aspartate Amino Transf (AST/SGOT) 57 U/L (15-37) Alanine Aminotransferase (ALT/SGPT) 199 U/L (14-59) Alkaline Phosphatase 44 U/L (46-116) Total Protein 5.8 g/dL (6.4-8.2) Albumin 3.4 g/dL (3.4-5.0) Albumin/Globulin Ratio 1.4 (1.0-1.7) Allergies: Coded Allergies: No Known Drug Allergies (Unverified , 12/17/17) Medications: Current Medications Medications (Trade) Dose Ordered Sig/Guido Route PRN Reason Start Time Stop Time Status Last Admin Dose Admin Sodium Chloride 90 meq/Potassium Chloride 50 meq/ Potassium Phosphate 13.6 mmol/Magnesium Sulfate 5 meq/ Calcium Gluconate 5 meq/ Multivitamins 10 ml/Chromium/ Copper/Manganese/ Seleni/Zn 1 ml/ Total Parenteral Nutrition/Amino Acids/Dextrose/ Fat Emulsion Intravenous 1,512 ml @ 63 mls/hr TPN CONT IV 12/24/17 22:00 12/25/17 21:59 12/24/17 21:11 Calcium Gluconate 2000 mg/Dextrose 120 ml @ 220 mls/hr 1X ONCE IV 12/25/17 10:00 12/25/17 10:32 DC 12/25/17 09:51 Imaging: Imaging: Head CT Impression: 1. No acute intracranial process detected. [employer] Bedside Swallow Eval Bedside swallow eval completed. IMPRESSIONS: Laryngeal dysfunction w/impaired cough, swallow and phonation. NPO indicated, pt is at high risk of aspiration. Currently, pt struggles to initate a weak swallow and has 'congestion' which is c/w the accumulation and ineffective clearing of her own secretions. Work-up for etiology of current neuro change is in progress. Given unknown etiology of dysphagia, time NPO might be required is also unclear. Given severity of dysphagia at present, anticipate pt may need non-oral nutrition for at least immediate future. Videoswallow not indicated at this time. RECOMMENDATIONS: NPO meds and nutrition. Oral care. Oral suction to be set PE: GEN: NAD, was asleep HEENT: Atraumatic, ?difficulty keeping eyes open, voice weak LUNGS: CTAB anteriorly HEART: RRR ABD: NABS, S/ND/NT EXTREMITY: No edema SKIN: No rashes, no jaundice NEURO/PSYCH: A & O 3, drowsy, RUE weakness A/P: A/P: Myasthenia Gravis w/ dysphagia Elevated LFTs, Hep B s Antibody reactive, antigen non-reactive -- Reviewed neurology note - feeling that PEG will be needed. Did not tolerate Dobhoff, risks w/ long-term TPN. D/w [employer]/Cheri - possible videoswallow tomorrow. D/w hospitalist Dr. Schultz - need for long-term non-oral nutrition, wonders about considering J tube/surgical consult. Discussed PEG procedure and associated risks w/ pt and her mother - they would like to proceed if no improvement noted w/ current treatments. Will review w/ Dr. Sparrow. OFELIA QUINN Dec 25, 2017 12:14
--- NOTE | 2017-12-25 12:57 | PDOC ---
SUBJECTIVE ROS TPE today OBJECTIVE Vital Signs Vital Signs Date Time Temp Pulse Resp B/P (MAP) Pulse Ox O2 Delivery O2 Flow Rate FiO2 12/25/17 11:00 97.5 103 16 146/91 (109) 99 Room Air 97.5 I & 0 Intake and Output 12/25/17 07:00 Intake Total 0 ml Balance 0 ml Intake Oral 0 ml # Voids 2 PHYSICAL EXAM Physical Exam Gen-- NAD HEENT- OM moist Neuro-- as per neurology Lungs CTA Bilat CV RRR Abdomen -Soft , NT DIAGNOSIS/ASSESSMENT Assessment & Plan Myasthenia gravis- on steroids and 4 th plasmaphereses today continue as Ordered As per neuro-a little worse, Myasthenia serology is positive, Plasmapheresis QOD , now plan on continuing through 01/[address] negative for thymoma Hypocalcemia- Will replace Decreased Fibrinogen- FFP with TPE Eze's thyroiditis Anxiety disorder COMMENT/RELEVANT DATA Meds Current Medications Medications (Trade) Dose Ordered Sig/Guido Start Time Stop Time Status Last Admin Dose Admin Acetaminophen (Tylenol) 500 mg PRN Q6HRS PRN 12/18/17 09:00 Acetaminophen/ Codeine Phosphate (Tylenol #3) 1 tab PRN Q6HRS PRN 12/18/17 09:00 12/18/17 12:08 DC Acetaminophen/ Hydrocodone Bitart (Lortab 7.5-325/ 15ml Oral Solution) 15 ml PRN Q4HRS PRN 12/18/17 09:00 12/19/17 16:23 DC Albumin Human 200 ml @ 0 mls/hr 1X ONCE 12/25/17 10:45 12/25/17 10:46 DC Albuterol Sulfate (Ventolin Neb Soln) 2.5 mg PRN Q6HRS PRN 12/18/17 09:30 12/18/17 13:12 2.5 MG Alprazolam (Xanax) 0.25 mg PRN Q8HRS PRN 12/18/17 13:15 12/19/17 16:23 DC 12/19/17 01:13 0.25 MG Alteplase, Recombinant (Cathflo) 2 mg 1X ONCE 12/20/17 11:45 12/20/17 11:46 DC 12/20/17 12:37 2 MG Amino Acids/ Glycerin/ Electrolytes 1,000 ml @ 80 mls/hr [id number] 12/20/17 09:30 12/20/17 11:44 DC 12/20/17 09:57 80 MLS/HR Amoxicillin (Amoxil) 750 mg BID 12/18/17 10:00 12/19/17 16:23 DC 12/18/17 21:02 750 MG Calcium Carbonate/ Glycine (Oscal) 500 mg [id number] 12/18/17 18:00 12/19/17 16:23 DC Calcium Gluconate 2000 mg/Dextrose 120 ml @ 220 mls/hr 1X ONCE 12/25/17 10:00 12/25/17 10:32 DC 12/25/17 09:51 220 MLS/HR Cetirizine HCl (ZyrTEC) 10 mg DAILY 12/18/17 10:00 12/18/17 12:08 DC Cyclobenzaprine HCl (Flexeril) 10 mg 1X ONCE 12/20/17 11:45 12/20/17 11:53 DC Diphenhydramine HCl (Benadryl) 50 mg 1X ONCE 12/25/17 09:30 12/25/17 09:31 DC Ergocalciferol (Vitamin D2) 50,000 unit MoTh 12/19/17 09:00 12/19/17 16:23 DC Famotidine (Pepcid Vial) 20 mg QHS 12/23/17 21:00 12/24/17 20:08 20 MG Famotidine (Pepcid) 20 mg QHS 12/18/17 21:00 12/19/17 16:23 DC 12/18/17 21:01 20 MG Fluticasone Propionate (Flonase) 1 spray DAILY 12/18/17 09:00 12/25/17 08:08 1 SPRAY Heparin Sodium (Porcine) (Heparin Sodium) 10,000 unit STK-MED ONCE 12/25/17 12:39 12/25/17 12:40 DC Ibuprofen (Motrin) 600 mg PRN Q6HRS PRN 12/18/17 09:00 12/19/17 16:23 DC Info (CONTRAST GIVEN -- Rx MONITORING) 1 each PRN DAILY PRN 12/18/17 10:15 12/20/17 10:14 DC Info (Tpn Per Pharmacy) 1 each PRN DAILY PRN 12/20/17 16:30 12/24/17 10:57 1 EACH Iohexol (Omnipaque 300 Mg/ml) 75 ml 1X ONCE 12/18/17 10:15 12/18/17 10:16 DC 12/18/17 10:31 75 ML Ketorolac Tromethamine (Toradol 15mg Vial) 15 mg 1X ONCE 12/17/17 20:15 12/17/17 20:16 DC 12/17/17 20:36 15 MG Levothyroxine Sodium (Synthroid) 25 mcg DAILY07 12/21/17 07:00 12/21/17 07:00 DC Levothyroxine Sodium 12.5 mcg/ Sodium Chloride 5 ml @ 100 mls/hr DAILY 12/21/17 09:00 12/25/17 08:11 100 MLS/HR Levothyroxine Sodium 15 mcg/ Sodium Chloride 5 ml @ 100 mls/hr DAILY 12/18/17 12:30 12/20/17 11:44 DC 12/20/17 09:41 100 MLS/HR Lidocaine/Sodium Bicarbonate (Buffered Lidocaine 1%) 3 ml 1X ONCE 12/18/17 15:15 12/18/17 15:16 DC 12/18/17 15:15 4 ML Lorazepam (Ativan) 1 mg PRN Q4HRS PRN 12/18/17 13:15 12/25/17 08:07 1 MG Meclizine HCl (Antivert) 25 mg 1X ONCE 12/17/17 20:00 12/17/17 20:01 DC 12/17/17 20:00 25 MG Methylprednisolone Sodium Succinate (SOLU-Medrol 40MG VIAL) 40 mg Q12HR 12/19/17 21:00 12/25/17 08:06 40 MG Morphine Sulfate (Morphine Sulfate) 2 mg PRN Q2HR PRN 12/19/17 23:15 12/25/17 08:08 2 MG Non-Formulary Medication 1 ea 1X ONCE 12/18/17 09:00 12/18/17 09:01 UNV Non-Formulary Medication (Albuterol Sulfate (Proair Hfa Inhaler)) 1 puff PRN Q6HRS PRN 12/18/17 09:00 UNV Ondansetron HCl (Zofran Odt) 4 mg PRN Q6HRS PRN 12/18/17 09:00 12/18/17 12:08 DC Ondansetron HCl (Zofran) 4 mg PRN Q6HRS PRN 12/18/17 09:00 12/24/17 18:03 4 MG Oxycodone/ Acetaminophen (Percocet 5/325) 1 tab PRN Q6HRS PRN 12/23/17 20:45 Cancel Potassium Chloride/Dextrose/ Sod Cl 1,000 ml @ 80 mls/hr [id number] 12/18/17 09:00 12/20/17 09:07 DC 12/19/17 10:00 80 MLS/HR Prednisone (Prednisone) 50 mg DAILY 12/18/17 13:00 12/19/17 16:23 DC 12/18/17 16:03 50 MG Pyridostigmine [place] (Mestinon) 60 mg BID 12/18/17 13:00 12/19/17 16:23 DC 12/18/17 21:01 60 MG Pyridostigmine [place] (Regonol) 2.5 mg Q12HR 12/19/17 21:00 12/25/17 08:06 2.5 MG Scopolamine (Transderm-Scop) 1 patch 1X ONCE 12/18/17 21:30 12/19/17 16:23 DC 12/18/17 21:41 1 PATCH Sodium Chloride 90 meq/Potassium Chloride 50 meq/ Potassium Phosphate 13.6 mmol/Magnesium Sulfate 5 meq/ Calcium Gluconate 5 meq/ Multivitamins 10 ml/Chromium/ Copper/Manganese/ Seleni/Zn 1 ml/ Total Parenteral Nutrition/Amino Acids/Dextrose/ Fat Emulsion Intravenous 1,512 ml @ 63 mls/hr TPN CONT 12/24/17 22:00 12/25/17 21:59 12/24/17 21:11 63 MLS/HR Zolpidem Tartrate (Ambien) 5 mg PRN QHS PRN 12/18/17 09:00 12/18/17 12:08 DC Lab Laboratory Tests Test 12/25/17 05:00 White Blood Count 11.0 x10^3/uL (4.0-11.0) Red Blood Count 5.01 x10^6/uL (3.50-5.40) Hemoglobin 14.1 g/dL (12.0-15.5) Hematocrit 42.0 % (36.0-47.0) Mean Corpuscular Volume 84 fL (79-100) Mean Corpuscular Hemoglobin 28 pg (25-35) Mean Corpuscular Hemoglobin Concent 34 g/dL (31-37) Red Cell Distribution Width 12.4 % (11.5-14.5) Platelet Count 112 x10^3/uL (140-400) Neutrophils (%) (Auto) 82 % (31-73) Lymphocytes (%) (Auto) 9 % (24-48) Monocytes (%) (Auto) 9 % (0-9) Eosinophils (%) (Auto) 0 % (0-3) Basophils (%) (Auto) 0 % (0-3) Neutrophils # (Auto) 9.0 x10^3uL (1.8-7.7) Lymphocytes # (Auto) 1.0 x10^3/uL (1.0-4.8) Monocytes # (Auto) 1.0 x10^3/uL (0.0-1.1) Eosinophils # (Auto) 0.0 x10^3/uL (0.0-0.7) Basophils # (Auto) 0.0 x10^3/uL (0.0-0.2) Prothrombin Time 14.4 SEC (11.7-14.0) Prothromb Time International Ratio 1.2 (0.8-1.1) Activated Partial Thromboplast Time 27 SEC (24-38) Fibrinogen 127 mg/dL (200-440) Sodium Level 141 mmol/L (136-145) Potassium Level 4.4 mmol/L (3.5-5.1) Chloride Level 103 mmol/L (98-107) Carbon Dioxide Level 31 mmol/L (21-32) Anion Gap 7 (6-14) Blood Urea Nitrogen 18 mg/dL (7-20) Creatinine 0.5 mg/dL (0.6-1.0) Estimated GFR (Cockcroft-Gault) 152.9 BUN/Creatinine Ratio 36 (6-20) Glucose Level 216 mg/dL (70-99) Calcium Level 8.0 mg/dL (8.5-10.1) Magnesium Level 2.3 mg/dL (1.8-2.4) Total Bilirubin 0.5 mg/dL (0.2-1.0) Aspartate Amino Transf (AST/SGOT) 57 U/L (15-37) Alanine Aminotransferase (ALT/SGPT) 199 U/L (14-59) Alkaline Phosphatase 44 U/L (46-116) Total Protein 5.8 g/dL (6.4-8.2) Albumin 3.4 g/dL (3.4-5.0) Albumin/Globulin Ratio 1.4 (1.0-1.7) Results All relevant outside records, renal labs, imaging studies, telemetry/EKG's were reviewed. THERESA TOLBERT MD Dec 25, 2017 12:57
[2017-12-25] MEDS: TPN PER PHARMACY MC PRN (13:27)
--- NOTE | 2017-12-25 13:28 | RAD ---
Exam: Right Upper Quadrant Ultrasound 12/25/2017 12:14 PM Indication: ELEVATED LFT'S Technique: Multiple realtime grayscale sonographic images were obtained over the abdomen. Static images were submitted for interpretation. Comparisons: None Findings: The pancreas is partially visualized. Visualized portions of the pancreas are grossly unremarkable. The liver is normal in size measuring 14.2 cm longitudinally. Hepatic echotexture is normal. No focal hepatic lesions are seen. Sludge appears to be present within the dependent portion of the gallbladder. No definitive nephrolithiasis is seen. No evidence of gallbladder wall thickening or pericholecystic fluid is identified. The common bile duct is nondilated 3 mm. The right kidney is normal in appearance measuring 11.7 cm in length. IMPRESSION: 1.Sludge within the dependent portion of the gallbladder. 2. Otherwise unremarkable sonographic appearance of the right upper quadrant. Electronically signed by: Ganesh Ferrara MD (12/25/2017 1:24 PM) [id number]
[2017-12-25] MEDS ORDERED: DEXTROSE 50% 25 GM / 50ML DISP.SYRIN. IV PRN (13:30)
[2017-12-25] MEDS: INSULIN LISPRO 300 UNITS/3 ML INSULN.PEN. SQ SCH (17:52)
[2017-12-25] MEDS: ALBUTEROL SULFATE 2.5 MG/3 ML NEBU. NEB PRN (19:29)
[2017-12-25 19:41] VITALS: BP 132/79
[2017-12-25] MEDS: FAMOTIDINE 20 MG/2 ML VIAL IVP SCH (19:52)
[2017-12-25] MEDS ORDERED: TOTAL PARENTERAL NUTRITION IV SCH ×10 (22:00)
[2017-12-25] MEDS ORDERED: AMINO ACIDS IV SCH ×10 (22:00)
[2017-12-25] MEDS ORDERED: DEXTROSE 70% IV SCH ×10 (22:00)
[2017-12-25] MEDS ORDERED: [UNRECOGNIZED DRUG - OTHER] IV SCH ×10 (22:00)
[2017-12-25 23:06] VITALS: BP 153/83
--- NOTE | 2017-12-26 00:24 | PDOC ---
PROGRESS NOTES Chief Complaint Chief Complaint myasthenia gravis - new diagnosis Diplopia Dysphagia Eze's thyroiditis Easy bruising History of Present Illness History of Present Illness Pleasant today , feels worse, very drowsy, has started plasmapheresis 3 treatments,-has an indwelling right subclavian catheter Still stiff neck, diplopia improved now, right side hand weakness is better. States she is having more weakness repositioning Had some issues with Dobbhoff kept on coiling hence now PICC line on the left and TPN going. She will not consent to NGT again, have discussed PEG or J-tube with her and mother bedside, they are still contemplating, would like to discuss with GI. She is able to spit up her secretions-doing well with NIF Does admit to increasing weakness and fatigability upon repetitive motion which is consistent with myasthenia gravis. New bruising on her bilateral shins and axilla noted no worse today. She is very drowsy and has left lateral gaze palsy today Plan: pyridostigmine and IV steroids started Plasmapheresis per renal/neurology-claims will get 5 doses every other day hence will be here at least until 12/27, now possibly until next saturday Thyroid is IV because of swallow issues-still nothing by mouth DTRs are +2 IV Pepcid since swallow issues and is nothing by mouth TPN tolerated - discussed considering surgical consultation and J-tube, they wish to think about it, will readdress in AM May need EMG of diaphragm in the future to assess her ability to maintain tidal volume if she does not continue to improve Discussed in detail with patient and mother, bedside Vitals Vitals Vital Signs Date Time Temp Pulse Resp B/P (MAP) Pulse Ox O2 Delivery O2 Flow Rate FiO2 12/25/17 22:24 16 97 Room Air 12/25/17 19:41 97.6 125 132/79 (96) 97.6 Physical Exam General: Alert, Oriented X3, Cooperative, No acute distress Heart: Regular rate, Normal S1, Normal S2 Abdomen: Normal bowel sounds, Soft, No tenderness, No hepatosplenomegaly, No masses Extremities: No clubbing, No cyanosis Skin: No rashes, No breakdown, No significant lesion, Other (lipoma at the nape ) Labs LABS Laboratory Tests Test 12/25/17 05:00 12/25/17 10:40 12/25/17 17:03 White Blood Count 11.0 x10^3/uL (4.0-11.0) Red Blood Count 5.01 x10^6/uL (3.50-5.40) Hemoglobin 14.1 g/dL (12.0-15.5) Hematocrit 42.0 % (36.0-47.0) Mean Corpuscular Volume 84 fL (79-100) Mean Corpuscular Hemoglobin 28 pg (25-35) Mean Corpuscular Hemoglobin Concent 34 g/dL (31-37) Red Cell Distribution Width 12.4 % (11.5-14.5) Platelet Count 112 x10^3/uL (140-400) Neutrophils (%) (Auto) 82 % (31-73) Lymphocytes (%) (Auto) 9 % (24-48) Monocytes (%) (Auto) 9 % (0-9) Eosinophils (%) (Auto) 0 % (0-3) Basophils (%) (Auto) 0 % (0-3) Neutrophils # (Auto) 9.0 x10^3uL (1.8-7.7) Lymphocytes # (Auto) 1.0 x10^3/uL (1.0-4.8) Monocytes # (Auto) 1.0 x10^3/uL (0.0-1.1) Eosinophils # (Auto) 0.0 x10^3/uL (0.0-0.7) Basophils # (Auto) 0.0 x10^3/uL (0.0-0.2) Prothrombin Time 14.4 SEC (11.7-14.0) Prothromb Time International Ratio 1.2 (0.8-1.1) Activated Partial Thromboplast Time 27 SEC (24-38) Fibrinogen 127 mg/dL (200-440) Sodium Level 141 mmol/L (136-145) Potassium Level 4.4 mmol/L (3.5-5.1) Chloride Level 103 mmol/L (98-107) Carbon Dioxide Level 31 mmol/L (21-32) Anion Gap 7 (6-14) Blood Urea Nitrogen 18 mg/dL (7-20) Creatinine 0.5 mg/dL (0.6-1.0) Estimated GFR (Cockcroft-Gault) 152.9 BUN/Creatinine Ratio 36 (6-20) Glucose Level 216 mg/dL (70-99) Calcium Level 8.0 mg/dL (8.5-10.1) Magnesium Level 2.3 mg/dL (1.8-2.4) Total Bilirubin 0.5 mg/dL (0.2-1.0) Aspartate Amino Transf (AST/SGOT) 57 U/L (15-37) Alanine Aminotransferase (ALT/SGPT) 199 U/L (14-59) Alkaline Phosphatase 44 U/L (46-116) Total Protein 5.8 g/dL (6.4-8.2) Albumin 3.4 g/dL (3.4-5.0) Albumin/Globulin Ratio 1.4 (1.0-1.7) Hepatitis C IgG Antibody Nonreactive (Nonreactive) Glucose (Fingerstick) 191 mg/dL (70-99) Assessment and Plan Assessmemt and Plan Problems Medical Problems: (1) Diplopia Status: Acute (2) Marijuana abuse Status: Acute (3) Myasthenia gravis with acute exacerbation Status: Acute (4) Neck muscle weakness Status: Acute (5) RUE weakness Status: Acute (6) Sinusitis Status: Acute Comment Review of Relevant I have reviewed the following items maliha (where applicable) has been applied. Labs Laboratory Tests Test 12/24/17 04:30 12/25/17 05:00 12/25/17 10:40 12/25/17 17:03 Sodium Level 141 mmol/L (136-145) 141 mmol/L (136-145) Potassium Level 4.1 mmol/L (3.5-5.1) 4.4 mmol/L (3.5-5.1) Chloride Level 104 mmol/L (98-107) 103 mmol/L (98-107) Carbon Dioxide Level 30 mmol/L (21-32) 31 mmol/L (21-32) Anion Gap 7 (6-14) 7 (6-14) Blood Urea Nitrogen 17 mg/dL (7-20) 18 mg/dL (7-20) Creatinine 0.5 mg/dL (0.6-1.0) 0.5 mg/dL (0.6-1.0) Estimated GFR (Cockcroft-Gault) 152.9 152.9 BUN/Creatinine Ratio 34 (6-20) 36 (6-20) Glucose Level 186 mg/dL (70-99) 216 mg/dL (70-99) Calcium Level 8.1 mg/dL (8.5-10.1) 8.0 mg/dL (8.5-10.1) Total Bilirubin 0.7 mg/dL (0.2-1.0) 0.5 mg/dL (0.2-1.0) Aspartate Amino Transf (AST/SGOT) 40 U/L (15-37) 57 U/L (15-37) Alanine Aminotransferase (ALT/SGPT) 107 U/L (14-59) 199 U/L (14-59) Alkaline Phosphatase 32 U/L (46-116) 44 U/L (46-116) Total Protein 5.5 g/dL (6.4-8.2) 5.8 g/dL (6.4-8.2) Albumin 3.5 g/dL (3.4-5.0) 3.4 g/dL (3.4-5.0) Albumin/Globulin Ratio 1.8 (1.0-1.7) 1.4 (1.0-1.7) White Blood Count 11.0 x10^3/uL (4.0-11.0) Red Blood Count 5.01 x10^6/uL (3.50-5.40) Hemoglobin 14.1 g/dL (12.0-15.5) Hematocrit 42.0 % (36.0-47.0) Mean Corpuscular Volume 84 fL (79-100) Mean Corpuscular Hemoglobin 28 pg (25-35) Mean Corpuscular Hemoglobin Concent 34 g/dL (31-37) Red Cell Distribution Width 12.4 % (11.5-14.5) Platelet Count 112 x10^3/uL (140-400) Neutrophils (%) (Auto) 82 % (31-73) Lymphocytes (%) (Auto) 9 % (24-48) Monocytes (%) (Auto) 9 % (0-9) Eosinophils (%) (Auto) 0 % (0-3) Basophils (%) (Auto) 0 % (0-3) Neutrophils # (Auto) 9.0 x10^3uL (1.8-7.7) Lymphocytes # (Auto) 1.0 x10^3/uL (1.0-4.8) Monocytes # (Auto) 1.0 x10^3/uL (0.0-1.1) Eosinophils # (Auto) 0.0 x10^3/uL (0.0-0.7) Basophils # (Auto) 0.0 x10^3/uL (0.0-0.2) Prothrombin Time 14.4 SEC (11.7-14.0) Prothromb Time International Ratio 1.2 (0.8-1.1) Activated Partial Thromboplast Time 27 SEC (24-38) Fibrinogen 127 mg/dL (200-440) Magnesium Level 2.3 mg/dL (1.8-2.4) Hepatitis C IgG Antibody Nonreactive (Nonreactive) Glucose (Fingerstick) 191 mg/dL (70-99) Laboratory Tests Test 12/25/17 05:00 12/25/17 10:40 12/25/17 17:03 White Blood Count 11.0 x10^3/uL (4.0-11.0) Red Blood Count 5.01 x10^6/uL (3.50-5.40) Hemoglobin 14.1 g/dL (12.0-15.5) Hematocrit 42.0 % (36.0-47.0) Mean Corpuscular Volume 84 fL (79-100) Mean Corpuscular Hemoglobin 28 pg (25-35) Mean Corpuscular Hemoglobin Concent 34 g/dL (31-37) Red Cell Distribution Width 12.4 % (11.5-14.5) Platelet Count 112 x10^3/uL (140-400) Neutrophils (%) (Auto) 82 % (31-73) Lymphocytes (%) (Auto) 9 % (24-48) Monocytes (%) (Auto) 9 % (0-9) Eosinophils (%) (Auto) 0 % (0-3) Basophils (%) (Auto) 0 % (0-3) Neutrophils # (Auto) 9.0 x10^3uL (1.8-7.7) Lymphocytes # (Auto) 1.0 x10^3/uL (1.0-4.8) Monocytes # (Auto) 1.0 x10^3/uL (0.0-1.1) Eosinophils # (Auto) 0.0 x10^3/uL (0.0-0.7) Basophils # (Auto) 0.0 x10^3/uL (0.0-0.2) Prothrombin Time 14.4 SEC (11.7-14.0) Prothromb Time International Ratio 1.2 (0.8-1.1) Activated Partial Thromboplast Time 27 SEC (24-38) Fibrinogen 127 mg/dL (200-440) Sodium Level 141 mmol/L (136-145) Potassium Level 4.4 mmol/L (3.5-5.1) Chloride Level 103 mmol/L (98-107) Carbon Dioxide Level 31 mmol/L (21-32) Anion Gap 7 (6-14) Blood Urea Nitrogen 18 mg/dL (7-20) Creatinine 0.5 mg/dL (0.6-1.0) Estimated GFR (Cockcroft-Gault) 152.9 BUN/Creatinine Ratio 36 (6-20) Glucose Level 216 mg/dL (70-99) Calcium Level 8.0 mg/dL (8.5-10.1) Magnesium Level 2.3 mg/dL (1.8-2.4) Total Bilirubin 0.5 mg/dL (0.2-1.0) Aspartate Amino Transf (AST/SGOT) 57 U/L (15-37) Alanine Aminotransferase (ALT/SGPT) 199 U/L (14-59) Alkaline Phosphatase 44 U/L (46-116) Total Protein 5.8 g/dL (6.4-8.2) Albumin 3.4 g/dL (3.4-5.0) Albumin/Globulin Ratio 1.4 (1.0-1.7) Hepatitis C IgG Antibody Nonreactive (Nonreactive) Glucose (Fingerstick) 191 mg/dL (70-99) Medications Current Medications Meclizine HCl (Antivert) 25 mg 1X ONCE PO Last administered on 12/17/17at 20:00 ; Start 12/17/17 at 20:00; Stop 12/17/17 at 20:01; Status DC Sodium Chloride 1,000 ml @ 1,000 mls/hr 1X ONCE IV Last administered on at 20:35; Start 12/17/17 at 20:15; Stop 12/17/17 at 21:14; Status DC Ketorolac Tromethamine (Toradol 15mg Vial) 15 mg 1X ONCE IV Last administered on 12/17/17at 20:36; Start 12/17/17 at 20:15; Stop 12/17/17 at 20:16; Status DC Diphenhydramine HCl (Benadryl) 25 mg 1X ONCE PO Last administered on at 02:16; Start 12/18/17 at 02:15; Stop 12/18/17 at 02:18; Status DC Acetaminophen (Tylenol) 500 mg PRN Q6HRS PRN PO MILD PAIN / TEMP; Start at 09:00 Acetaminophen/ Codeine Phosphate (Tylenol #3) 1 tab PRN Q6HRS PRN PO PAIN; Start 12/18/17 at 09:00; Stop 12/18/17 at 12:08; Status DC Ibuprofen (Motrin) 600 mg PRN Q6HRS PRN PO INFLAMMATION; Start 12/18/17 at 09: 00; Stop 12/19/17 at 16:23; Status DC Ondansetron HCl (Zofran) 4 mg PRN Q6HRS PRN IV NAUSEA/VOMITING Last administered on 12/24/17at 18:03; Start 12/18/17 at 09:00 Ondansetron HCl (Zofran Odt) 4 mg PRN Q6HRS PRN PO NAUSEA/VOMITING; Start 12/18 at 09:00; Stop 12/18/17 at 12:08; Status DC Fluticasone Propionate (Flonase) 1 spray DAILY NS Last administered on at 08:08; Start 12/18/17 at 09:00 Acetaminophen/ Hydrocodone Bitart (Lortab 7.5-325/ 15ml Oral Solution) 15 ml PRN Q4HRS PRN PO MODERATE PAIN; Start 12/18/17 at 09:00; Stop 12/19/17 at 16:23 ; Status DC Non-Formulary Medication (Albuterol Sulfate (Proair Hfa Inhaler)) 1 puff PRN Q6HRS PRN INH SHORTNESS OF BREATH; Start 12/18/17 at 09:00; Status UNV Amoxicillin (Amoxil) 750 mg BID PO Last administered on 12/18/17at 21:02; Start 12/18/17 at 10:00; Stop 12/19/17 at 16:23; Status DC Levothyroxine Sodium (Synthroid) 25 mcg DAILY07 PO ; Start 12/18/17 at 10:30; Stop 12/18/17 at 12:08; Status DC Prednisone (Prednisone) 50 mg DAILY PO ; Start 12/18/17 at 10:00; Stop 12/18/17 at 12:08; Status DC Alprazolam (Xanax) 0.25 mg PRN Q8HRS PRN PO ANXIETY / AGITATION; Start at 09:00; Stop 12/19/17 at 08:14; Status DC Zolpidem Tartrate (Ambien) 5 mg PRN QHS PRN PO INSOMNIA; Start 12/18/17 at 09: 00; Stop 12/18/17 at 12:08; Status DC Cetirizine HCl (ZyrTEC) 10 mg DAILY PO ; Start 12/18/17 at 10:00; Stop 12/18/17 at 12:08; Status DC Non-Formulary Medication 1 ea 1X ONCE IV ; Start 12/18/17 at 09:00; Stop at 09:01; Status UNV Potassium Chloride/Dextrose/ Sod Cl 1,000 ml @ 80 mls/hr [id number] IV Last administered on 12/19/17at 10:00; Start 12/18/17 at 09:00; Stop 12/20/17 at 09:07 ; Status DC Albuterol Sulfate (Ventolin Neb Soln) 2.5 mg PRN Q6HRS PRN NEB SHORTNESS OF BREATH Last administered on 12/25/17at 19:29; Start 12/18/17 at 09:30 Iohexol (Omnipaque 300 Mg/ml) 75 ml 1X ONCE IV Last administered on 12/18/17at 10:31; Start 12/18/17 at 10:15; Stop 12/18/17 at 10:16; Status DC Info (CONTRAST GIVEN -- Rx MONITORING) 1 each PRN DAILY PRN MC SEE COMMENTS; Start 12/18/17 at 10:15; Stop 12/20/17 at 10:14; Status DC Levothyroxine Sodium 15 mcg/ Sodium Chloride 5 ml @ 100 mls/hr DAILY IVP Last administered on 12/20/17at 09:41; Start 12/18/17 at 12:30; Stop 12/20/17 at 11:44 ; Status DC Lorazepam (Ativan) 1 mg PRN Q4HRS PRN IV ANXIETY / AGITATION Last administered on 12/25/17at 19:51; Start 12/18/17 at 13:15 Alprazolam (Xanax) 0.25 mg PRN Q8HRS PRN NG ANXIETY / AGITATION Last administered on 12/19/17at 01:13; Start 12/18/17 at 13:15; Stop 12/19/17 at 16:23 ; Status DC Pyridostigmine [place] (Mestinon) 60 mg BID NG Last administered on 12/18/17at 21:01; Start 12/18/17 at 13:00; Stop 12/19/17 at 16:23; Status DC Prednisone (Prednisone) 50 mg DAILY PO Last administered on 12/18/17at 16:03; Start 12/18/17 at 13:00; Stop 12/19/17 at 16:23; Status DC Famotidine (Pepcid) 20 mg QHS PO Last administered on 12/18/17at 21:01; Start at 21:00; Stop 12/19/17 at 16:23; Status DC Calcium Carbonate/ Glycine (Oscal) 500 mg TIDAFTMEAL PO ; Start 12/18/17 at 18: 00; Stop 12/19/17 at 16:23; Status DC Ergocalciferol (Vitamin D2) 50,000 unit MoTh PO ; Start 12/19/17 at 09:00; Stop 12/19/17 at 16:23; Status DC Lidocaine/Sodium Bicarbonate (Buffered Lidocaine 1%) 3 ml STK-MED ONCE .ROUTE ; Start 12/18/17 at 14:32; Stop 12/18/17 at 14:33; Status DC Heparin Sodium (Porcine) (Heparin Sodium) 10,000 unit STK-MED ONCE .ROUTE ; Start 12/18/17 at 14:32; Stop 12/18/17 at 14:33; Status DC Lidocaine/Sodium Bicarbonate (Buffered Lidocaine 1%) 3 ml 1X ONCE INJ Last administered on 12/18/17at 15:15; Start 12/18/17 at 15:15; Stop 12/18/17 at 15:16 ; Status DC Heparin Sodium (Porcine) (Heparin Sodium) 2,200 unit 1X ONCE INT CAT Last administered on 12/18/17at 15:15; Start 12/18/17 at 15:15; Stop 12/18/17 at 15:16 ; Status DC Scopolamine (Transderm-Scop) 1 patch 1X ONCE TD Last administered on at 21:41; Start 12/18/17 at 21:30; Stop 12/19/17 at 16:23; Status DC Albumin Human 1,500 ml @ 0 mls/hr 1X ONCE IV Last administered on 12/19/17at 11:38; Start 12/19/17 at 08:15; Stop 12/19/17 at 08:16; Status DC Heparin Sodium (Porcine) (Heparin Sodium) 10,000 unit STK-MED ONCE .ROUTE ; Start 12/19/17 at 08:40; Stop 12/19/17 at 08:41; Status DC Info (Tpn Per Pharmacy) 1 each PRN DAILY PRN MC SEE COMMENTS Last administered on 12/25/17 13:27; Start 12/20/17 at 16:30 Pyridostigmine [place] (Regonol) 2.5 mg Q12HR IV Last administered on 19:52; Start 12/19/17 at 21:00 Methylprednisolone Sodium Succinate (SOLU-Medrol 40MG VIAL) 40 mg Q12HR IV Last administered on 12/25/17 19:51; Start 12/19/17 at 21:00 Famotidine (Pepcid Vial) 20 mg QHS IVP Last administered on 12/19/17at 21:33; Start 12/19/17 at 21:00; Stop 12/20/17 at 11:44; Status DC Morphine Sulfate (Morphine Sulfate) 2 mg PRN Q2HR PRN IV MODERATE TO SEVERE PAIN Last administered on 12/25/17 21:54; Start 12/19/17 at 23:15 Amino Acids/ Glycerin/ Electrolytes 1,000 ml @ 80 mls/hr [id number] IV Last administered on 12/20/17at 09:57; Start 12/20/17 at 09:30; Stop 12/20/17 at 11:44 ; Status DC Alteplase, Recombinant (Cathflo) 2 mg 1X ONCE IV Last administered on at 12:37; Start 12/20/17 at 11:45; Stop 12/20/17 at 11:46; Status DC Cyclobenzaprine HCl (Flexeril) 5 mg QID PO Last administered on 12/21/17at 09:10 ; Start 12/20/17 at 17:00 Cyclobenzaprine HCl (Flexeril) 10 mg 1X ONCE PO ; Start 12/20/17 at 11:45; Stop 12/20/17 at 11:53; Status DC Levothyroxine Sodium (Synthroid) 25 mcg DAILY07 PO ; Start 12/21/17 at 07:00; Stop 12/21/17 at 07:00; Status DC Levothyroxine Sodium 12.5 mcg/ Sodium Chloride 5 ml @ 100 mls/hr DAILY IVP Last administered on 12/25/17at 08:11; Start 12/21/17 at 09:00 Sodium Chloride 90 meq/Potassium Chloride 50 meq/ Potassium Phosphate 13.6 mmol/ Magnesium Sulfate 5 meq/ Calcium Gluconate 5 meq/ Multivitamins 10 ml/Chromium/ Copper/Manganese/ Seleni/Zn 1 ml/ Total Parenteral Nutrition/Amino Acids/ Dextrose/ Fat Emulsion Intravenous 1,512 ml @ 63 mls/hr TPN CONT IV Last administered on 12/20/17at 20:58; Start 12/20/17 at 22:00; Stop 12/21/17 at 21:59 ; Status DC Albumin Human 1,200 ml @ 0 mls/hr 1X ONCE IV Last administered on 12/21/17at 10:40; Start 12/21/17 at 08:45; Stop 12/21/17 at 08:46; Status DC Heparin Sodium (Porcine) (Heparin Sodium) 10,000 unit STK-MED ONCE .ROUTE ; Start 12/21/17 at 08:50; Stop 12/21/17 at 08:51; Status DC Diphenhydramine HCl (Benadryl) 50 mg STK-MED ONCE .ROUTE ; Start 12/21/17 at 11: 46; Stop 12/21/17 at 11:47; Status DC Diphenhydramine HCl (Benadryl) 50 mg 1X ONCE IVP Last administered on at 11:59; Start 12/21/17 at 12:00; Stop 12/21/17 at 12:01; Status DC Sodium Chloride 90 meq/Potassium Chloride 50 meq/ Potassium Phosphate 13.6 mmol/ Magnesium Sulfate 5 meq/ Calcium Gluconate 5 meq/ Multivitamins 10 ml/Chromium/ Copper/Manganese/ Seleni/Zn 1 ml/ Total Parenteral Nutrition/Amino Acids/ Dextrose/ Fat Emulsion Intravenous 1,512 ml @ 63 mls/hr TPN CONT IV Last administered on 12/21/17at 22:00; Start 12/21/17 at 22:00; Stop 12/22/17 at 21:59 ; Status DC Sodium Chloride 90 meq/Potassium Chloride 50 meq/ Potassium Phosphate 13.6 mmol/ Magnesium Sulfate 5 meq/ Calcium Gluconate 5 meq/ Multivitamins 10 ml/Chromium/ Copper/Manganese/ Seleni/Zn 1 ml/ Total Parenteral Nutrition/Amino Acids/ Dextrose/ Fat Emulsion Intravenous 1,512 ml @ 63 mls/hr TPN CONT IV Last administered on 12/22/17at 21:26; Start 12/22/17 at 22:00; Stop 12/23/17 at 21:59 ; Status DC Famotidine (Pepcid Vial) 20 mg QHS IVP Last administered on 12/25/17at 19:52; Start 12/23/17 at 21:00 Sodium Chloride 90 meq/Potassium Chloride 50 meq/ Potassium Phosphate 13.6 mmol/ Magnesium Sulfate 5 meq/ Calcium Gluconate 5 meq/ Multivitamins 10 ml/Chromium/ Copper/Manganese/ Seleni/Zn 1 ml/ Total Parenteral Nutrition/Amino Acids/ Dextrose/ Fat Emulsion Intravenous 1,512 ml @ 63 mls/hr TPN CONT IV Last administered on 12/23/17at 21:10; Start 12/23/17 at 22:00; Stop 12/24/17 at 21:59 ; Status DC Diphenhydramine HCl (Benadryl) 50 mg 1X ONCE IVP Last administered on at 17:33; Start 12/23/17 at 12:00; Stop 12/23/17 at 12:23; Status DC Albumin Human 1,500 ml @ 125 mls/hr 1X ONCE IV Last administered on at 17:34; Start 12/23/17 at 12:30; Stop 12/24/17 at 00:29; Status DC Heparin Sodium (Porcine) (Heparin Sodium) 10,000 unit [facility]-MED ONCE .ROUTE ; Start 12/23/17 at 14:57; Stop 12/23/17 at 14:58; Status DC Oxycodone/ Acetaminophen (Percocet 5/325) 1 tab PRN Q6HRS PRN PO PAIN; Start 12/23/17 at 20:45; Status Cancel Sodium Chloride 90 meq/Potassium Chloride 50 meq/ Potassium Phosphate 13.6 mmol/ Magnesium Sulfate 5 meq/ Calcium Gluconate 5 meq/ Multivitamins 10 ml/Chromium/ Copper/Manganese/ Seleni/Zn 1 ml/ Total Parenteral Nutrition/Amino Acids/ Dextrose/ Fat Emulsion Intravenous 1,512 ml @ 63 mls/hr TPN CONT IV Last administered on 12/24/17at 21:11; Start 12/24/17 at 22:00; Stop 12/25/17 at 21:59 ; Status DC Calcium Gluconate 2000 mg/Dextrose 120 ml @ 220 mls/hr 1X ONCE IV Last administered on 12/25/17at 09:51; Start 12/25/17 at 10:00; Stop 12/25/17 at 10:32 ; Status DC Diphenhydramine HCl (Benadryl) 50 mg 1X ONCE IVP Last administered on at 14:16; Start 12/25/17 at 09:30; Stop 12/25/17 at 09:31; Status DC Heparin Sodium (Porcine) (Heparin Sodium) 3,000 unit 1X ONCE IV Last administered on 12/25/17at 09:15; Start 12/25/17 at 09:15; Stop 12/25/17 at 09:16 ; Status DC Albumin Human 1,500 ml @ 0 mls/hr 1X ONCE IV Last administered on 12/25/17at 14:19; Start 12/25/17 at 10:45; Stop 12/25/17 at 10:46; Status DC Albumin Human 200 ml @ 0 mls/hr 1X ONCE IV ; Start 12/25/17 at 10:45; Stop 12/25/17 at 10:46; Status DC Heparin Sodium (Porcine) (Heparin Sodium) 10,000 unit STK-MED ONCE .ROUTE ; Start 12/25/17 at 12:39; Stop 12/25/17 at 12:40; Status DC Insulin Human Lispro (HumaLOG) 0-5 UNITS TIDWMEALS SQ Last administered on 12/25at 17:52; Start 12/25/17 at 17:00 Dextrose (Dextrose 50%-Water Syringe) 12.5 gm PRN Q15MIN PRN IV SEE COMMENTS; Start 12/25/17 at 13:30 Sodium Chloride 90 meq/Potassium Chloride 50 meq/ Potassium Phosphate 13.6 mmol/ Magnesium Sulfate 5 meq/ Calcium Gluconate 5 meq/ Multivitamins 10 ml/Chromium/ Copper/Manganese/ Seleni/Zn 1 ml/ Total Parenteral Nutrition/Amino Acids/ Dextrose/ Fat Emulsion Intravenous 1,512 ml @ 63 mls/hr TPN CONT IV Last administered on 12/25/17at 21:42; Start 12/25/17 at 22:00; Stop 12/26/17 at 21:59 Active Scripts Active Reported Amoxicillin 875 Mg Tablet 1 Tab PO BID Levothyroxine Sodium 25 Mcg Tablet 1 Tab PO DAILY Proair Hfa Inhaler (Albuterol Sulfate) 8.5 Gm Hfa.aer.ad 1 Puff INH PRN Q6HRS PRN [kaitlib fe] Hydrocodone-Apap 7.5-325/15 Soln (Hydrocodone Bit/Acetaminophen) 15 Ml Solution 15 Ml PO PRN Q4HRS PRN Prednisone 50 Mg Tablet 1 Tab PO DAILY Fluticasone Propionate Nasal Lexa (Fluticasone Propionate) 16 Gm Lexa.susp 1 Lexa NS DAILY [zoloft] [ativan] Vitals/I & O Vital Sign - Last 24 Hours 12/25/17 12/25/17 12/25/17 12/25/17 07:00 08:00 08:08 11:00 Temp 97.5 97.5 97.5 97.5 Pulse 87 103 Resp 16 19 16 B/P (MAP) 130/85 (100) 146/91 (109) Pulse Ox 97 99 O2 Delivery Room Air Room Air Room Air Room Air 12/25/17 12/25/17 12/25/17 12/25/17 12:58 19:30 19:41 19:55 Temp 97.6 97.6 Pulse 125 Resp 18 18 B/P (MAP) 132/79 (96) Pulse Ox 98 97 O2 Delivery Room Air Room Air Room Air Room Air 12/25/17 12/25/17 21:54 22:24 Resp 16 16 Pulse Ox 97 97 O2 Delivery Room Air Room Air Intake and Output 12/25/17 12/25/17 12/26/17 15:00 23:00 07:00 Intake Total 0 ml Balance 0 ml SINDY SANTILLAN MD Dec 26, 2017 00:24
[2017-12-26] MEDS: MORPHINE SULFATE 2 MG/ML VIAL. IV PRN ×4 (00:50→20:12)
[2017-12-26 02:58] VITALS: BP 136/82
[2017-12-26 05:44] LABS: ALBUMIN 3.7 g/dL (3.4-5.0); ALBUMIN/GLOBULIN RATIO 2.1 (1.0-1.7); CALCIUM 8.6 mg/dL (8.5-10.1); CREATININE 0.5 mg/dL (0.6-1.0); GFR 152.9; MAGNESIUM 2.3 mg/dL (1.8-2.4); PHOSPHORUS 3.4 mg/dL (2.6-4.7); POTASSIUM 4.3 mmol/L (3.5-5.1); TOTAL BILIRUBIN 0.6 mg/dL (0.2-1.0); TOTAL PROTEIN 5.5 g/dL (6.4-8.2)
[2017-12-26 07:00] VITALS: BP 137/95
[2017-12-26] MEDS: INSULIN LISPRO 300 UNITS/3 ML INSULN.PEN. SQ SCH ×3 (08:00→17:43)
--- NOTE | 2017-12-26 08:22 | PDOC ---
PROGRESS NOTES Chief Complaint Chief Complaint myasthenia gravis - new diagnosis Diplopia Dysphagia Eze's thyroiditis Easy bruising History of Present Illness History of Present Illness Pleasant today, feels the same, less drowsy, has started plasmapheresis treatments tolerated well,-has an indwelling right subclavian catheter, due tomorrow Still stiff neck, diplopia improved now, right side hand weakness is better. States she is having weakness repositioning and a new rash on her back Had some issues with Dobbhoff kept on coiling hence now PICC line on the left and TPN going. She will not consent to NGT again, have discussed PEG or J-tube with her and mother bedside, they are still contemplating, would like to discuss with GI. She is able to spit up her secretions-doing well with NIF, d/w RT today. Does admit to increasing weakness and fatigability upon repetitive motion which is consistent with myasthenia gravis. New bruising on her bilateral shins and axilla noted no worse today. y Plan: pyridostigmine and IV steroids started Plasmapheresis per renal/neurology-claims will get 5 doses every other day hence will be here at least until 12/27, now possibly until next saturday Thyroid is IV because of swallow issues-still nothing by mouth DTRs are +2 IV Pepcid since swallow issues and is nothing by mouth TPN tolerated - discussed considering surgical consultation and J-tube, they wish to think about it, will readdress daily with GI May need EMG of diaphragm in the future to assess her ability to maintain tidal volume if she does not continue to improve Discussed in detail with patient and mother, bedside. Vitals Vitals Vital Signs Date Time Temp Pulse Resp B/P (MAP) Pulse Ox O2 Delivery O2 Flow Rate FiO2 12/26/17 07:00 98.9 67 12 137/95 (109) 98 Room Air 98.9 Physical Exam General: Alert, Oriented X3, Cooperative, No acute distress Heart: Regular rate, Normal S1, Normal S2 Abdomen: Normal bowel sounds, Soft, No tenderness, No hepatosplenomegaly, No masses Extremities: No clubbing, No cyanosis Skin: No rashes, No breakdown, No significant lesion, Other (lipoma at the nape ) Labs LABS Laboratory Tests Test 12/25/17 10:40 12/25/17 17:03 12/26/17 00:28 12/26/17 05:21 Hepatitis C IgG Antibody Nonreactive (Nonreactive) Glucose (Fingerstick) 191 mg/dL (70-99) 224 mg/dL (70-99) Sodium Level 141 mmol/L (136-145) Potassium Level 4.3 mmol/L (3.5-5.1) Chloride Level 105 mmol/L (98-107) Carbon Dioxide Level 31 mmol/L (21-32) Anion Gap 5 (6-14) Blood Urea Nitrogen 18 mg/dL (7-20) Creatinine 0.5 mg/dL (0.6-1.0) Estimated GFR (Cockcroft-Gault) 152.9 BUN/Creatinine Ratio 36 (6-20) Glucose Level 184 mg/dL (70-99) Calcium Level 8.6 mg/dL (8.5-10.1) Ionized Calcium 1.19 mmol/L (1.13-1.32) Phosphorus Level 3.4 mg/dL (2.6-4.7) Magnesium Level 2.3 mg/dL (1.8-2.4) Total Bilirubin 0.6 mg/dL (0.2-1.0) Aspartate Amino Transf (AST/SGOT) 19 U/L (15-37) Alanine Aminotransferase (ALT/SGPT) 83 U/L (14-59) Alkaline Phosphatase 30 U/L (46-116) Total Protein 5.5 g/dL (6.4-8.2) Albumin 3.7 g/dL (3.4-5.0) Albumin/Globulin Ratio 2.1 (1.0-1.7) Triglycerides Level 154 mg/dL (0-150) Assessment and Plan Assessmemt and Plan Problems Medical Problems: (1) Diplopia Status: Acute (2) Marijuana abuse Status: Acute (3) Myasthenia gravis with acute exacerbation Status: Acute (4) Neck muscle weakness Status: Acute (5) RUE weakness Status: Acute (6) Sinusitis Status: Acute Comment Review of Relevant I have reviewed the following items maliha (where applicable) has been applied. Labs Laboratory Tests Test 12/25/17 05:00 12/25/17 10:40 12/25/17 17:03 12/26/17 00:28 White Blood Count 11.0 x10^3/uL (4.0-11.0) Red Blood Count 5.01 x10^6/uL (3.50-5.40) Hemoglobin 14.1 g/dL (12.0-15.5) Hematocrit 42.0 % (36.0-47.0) Mean Corpuscular Volume 84 fL (79-100) Mean Corpuscular Hemoglobin 28 pg (25-35) Mean Corpuscular Hemoglobin Concent 34 g/dL (31-37) Red Cell Distribution Width 12.4 % (11.5-14.5) Platelet Count 112 x10^3/uL (140-400) Neutrophils (%) (Auto) 82 % (31-73) Lymphocytes (%) (Auto) 9 % (24-48) Monocytes (%) (Auto) 9 % (0-9) Eosinophils (%) (Auto) 0 % (0-3) Basophils (%) (Auto) 0 % (0-3) Neutrophils # (Auto) 9.0 x10^3uL (1.8-7.7) Lymphocytes # (Auto) 1.0 x10^3/uL (1.0-4.8) Monocytes # (Auto) 1.0 x10^3/uL (0.0-1.1) Eosinophils # (Auto) 0.0 x10^3/uL (0.0-0.7) Basophils # (Auto) 0.0 x10^3/uL (0.0-0.2) Prothrombin Time 14.4 SEC (11.7-14.0) Prothromb Time International Ratio 1.2 (0.8-1.1) Activated Partial Thromboplast Time 27 SEC (24-38) Fibrinogen 127 mg/dL (200-440) Sodium Level 141 mmol/L (136-145) Potassium Level 4.4 mmol/L (3.5-5.1) Chloride Level 103 mmol/L (98-107) Carbon Dioxide Level 31 mmol/L (21-32) Anion Gap 7 (6-14) Blood Urea Nitrogen 18 mg/dL (7-20) Creatinine 0.5 mg/dL (0.6-1.0) Estimated GFR (Cockcroft-Gault) 152.9 BUN/Creatinine Ratio 36 (6-20) Glucose Level 216 mg/dL (70-99) Calcium Level 8.0 mg/dL (8.5-10.1) Magnesium Level 2.3 mg/dL (1.8-2.4) Total Bilirubin 0.5 mg/dL (0.2-1.0) Aspartate Amino Transf (AST/SGOT) 57 U/L (15-37) Alanine Aminotransferase (ALT/SGPT) 199 U/L (14-59) Alkaline Phosphatase 44 U/L (46-116) Total Protein 5.8 g/dL (6.4-8.2) Albumin 3.4 g/dL (3.4-5.0) Albumin/Globulin Ratio 1.4 (1.0-1.7) Hepatitis C IgG Antibody Nonreactive (Nonreactive) Glucose (Fingerstick) 191 mg/dL (70-99) 224 mg/dL (70-99) Test 12/26/17 05:21 Sodium Level 141 mmol/L (136-145) Potassium Level 4.3 mmol/L (3.5-5.1) Chloride Level 105 mmol/L (98-107) Carbon Dioxide Level 31 mmol/L (21-32) Anion Gap 5 (6-14) Blood Urea Nitrogen 18 mg/dL (7-20) Creatinine 0.5 mg/dL (0.6-1.0) Estimated GFR (Cockcroft-Gault) 152.9 BUN/Creatinine Ratio 36 (6-20) Glucose Level 184 mg/dL (70-99) Calcium Level 8.6 mg/dL (8.5-10.1) Ionized Calcium 1.19 mmol/L (1.13-1.32) Phosphorus Level 3.4 mg/dL (2.6-4.7) Magnesium Level 2.3 mg/dL (1.8-2.4) Total Bilirubin 0.6 mg/dL (0.2-1.0) Aspartate Amino Transf (AST/SGOT) 19 U/L (15-37) Alanine Aminotransferase (ALT/SGPT) 83 U/L (14-59) Alkaline Phosphatase 30 U/L (46-116) Total Protein 5.5 g/dL (6.4-8.2) Albumin 3.7 g/dL (3.4-5.0) Albumin/Globulin Ratio 2.1 (1.0-1.7) Triglycerides Level 154 mg/dL (0-150) Laboratory Tests Test 12/25/17 10:40 10/3/18 17:03 12/26/17 00:28 12/26/17 05:21 Hepatitis C IgG Antibody Nonreactive (Nonreactive) Glucose (Fingerstick) 191 mg/dL (70-99) 224 mg/dL (70-99) Sodium Level 141 mmol/L (136-145) Potassium Level 4.3 mmol/L (3.5-5.1) Chloride Level 105 mmol/L (98-107) Carbon Dioxide Level 31 mmol/L (21-32) Anion Gap 5 (6-14) Blood Urea Nitrogen 18 mg/dL (7-20) Creatinine 0.5 mg/dL (0.6-1.0) Estimated GFR (Cockcroft-Gault) 152.9 BUN/Creatinine Ratio 36 (6-20) Glucose Level 184 mg/dL (70-99) Calcium Level 8.6 mg/dL (8.5-10.1) Ionized Calcium 1.19 mmol/L (1.13-1.32) Phosphorus Level 3.4 mg/dL (2.6-4.7) Magnesium Level 2.3 mg/dL (1.8-2.4) Total Bilirubin 0.6 mg/dL (0.2-1.0) Aspartate Amino Transf (AST/SGOT) 19 U/L (15-37) Alanine Aminotransferase (ALT/SGPT) 83 U/L (14-59) Alkaline Phosphatase 30 U/L (46-116) Total Protein 5.5 g/dL (6.4-8.2) Albumin 3.7 g/dL (3.4-5.0) Albumin/Globulin Ratio 2.1 (1.0-1.7) Triglycerides Level 154 mg/dL (0-150) Medications Current Medications Meclizine HCl (Antivert) 25 mg 1X ONCE PO Last administered on 12/17/17at 20:00 ; Start 12/17/17 at 20:00; Stop 12/17/17 at 20:01; Status DC Sodium Chloride 1,000 ml @ 1,000 mls/hr 1X ONCE IV Last administered on at 20:35; Start 12/17/17 at 20:15; Stop 12/17/17 at 21:14; Status DC Ketorolac Tromethamine (Toradol 15mg Vial) 15 mg 1X ONCE IV Last administered on 12/17/17at 20:36; Start 12/17/17 at 20:15; Stop 12/17/17 at 20:16; Status DC Diphenhydramine HCl (Benadryl) 25 mg 1X ONCE PO Last administered on at 02:16; Start 12/18/17 at 02:15; Stop 12/18/17 at 02:18; Status DC Acetaminophen (Tylenol) 500 mg PRN Q6HRS PRN PO MILD PAIN / TEMP; Start at 09:00 Acetaminophen/ Codeine Phosphate (Tylenol #3) 1 tab PRN Q6HRS PRN PO PAIN; Start 12/18/17 at 09:00; Stop 12/18/17 at 12:08; Status DC Ibuprofen (Motrin) 600 mg PRN Q6HRS PRN PO INFLAMMATION; Start 12/18/17 at 09: 00; Stop 12/19/17 at 16:23; Status DC Ondansetron HCl (Zofran) 4 mg PRN Q6HRS PRN IV NAUSEA/VOMITING Last administered on 12/24/17at 18:03; Start 12/18/17 at 09:00 Ondansetron HCl (Zofran Odt) 4 mg PRN Q6HRS PRN PO NAUSEA/VOMITING; Start 12/18 at 09:00; Stop 12/18/17 at 12:08; Status DC Fluticasone Propionate (Flonase) 1 spray DAILY NS Last administered on at 08:08; Start 12/18/17 at 09:00 Acetaminophen/ Hydrocodone Bitart (Lortab 7.5-325/ 15ml Oral Solution) 15 ml PRN Q4HRS PRN PO MODERATE PAIN; Start 12/18/17 at 09:00; Stop 12/19/17 at 16:23 ; Status DC Non-Formulary Medication (Albuterol Sulfate (Proair Hfa Inhaler)) 1 puff PRN Q6HRS PRN INH SHORTNESS OF BREATH; Start 12/18/17 at 09:00; Status UNV Amoxicillin (Amoxil) 750 mg BID PO Last administered on 12/18/17at 21:02; Start 12/18/17 at 10:00; Stop 12/19/17 at 16:23; Status DC Levothyroxine Sodium (Synthroid) 25 mcg DAILY07 PO ; Start 12/18/17 at 10:30; Stop 12/18/17 at 12:08; Status DC Prednisone (Prednisone) 50 mg DAILY PO ; Start 12/18/17 at 10:00; Stop 12/18/17 at 12:08; Status DC Alprazolam (Xanax) 0.25 mg PRN Q8HRS PRN PO ANXIETY / AGITATION; Start at 09:00; Stop 12/19/17 at 08:14; Status DC Zolpidem Tartrate (Ambien) 5 mg PRN QHS PRN PO INSOMNIA; Start 12/18/17 at 09: 00; Stop 12/18/17 at 12:08; Status DC Cetirizine HCl (ZyrTEC) 10 mg DAILY PO ; Start 12/18/17 at 10:00; Stop 12/18/17 at 12:08; Status DC Non-Formulary Medication 1 ea 1X ONCE IV ; Start 12/18/17 at 09:00; Stop at 09:01; Status UNV Potassium Chloride/Dextrose/ Sod Cl 1,000 ml @ 80 mls/hr [id number] IV Last administered on 12/19/17at 10:00; Start 12/18/17 at 09:00; Stop 12/20/17 at 09:07 ; Status DC Albuterol Sulfate (Ventolin Neb Soln) 2.5 mg PRN Q6HRS PRN NEB SHORTNESS OF BREATH Last administered on 12/25/17at 19:29; Start 12/18/17 at 09:30 Iohexol (Omnipaque 300 Mg/ml) 75 ml 1X ONCE IV Last administered on 12/18/17at 10:31; Start 12/18/17 at 10:15; Stop 12/18/17 at 10:16; Status DC Info (CONTRAST GIVEN -- Rx MONITORING) 1 each PRN DAILY PRN MC SEE COMMENTS; Start 12/18/17 at 10:15; Stop 12/20/17 at 10:14; Status DC Levothyroxine Sodium 15 mcg/ Sodium Chloride 5 ml @ 100 mls/hr DAILY IVP Last administered on 12/20/17at 09:41; Start 12/18/17 at 12:30; Stop 12/20/17 at 11:44 ; Status DC Lorazepam (Ativan) 1 mg PRN Q4HRS PRN IV ANXIETY / AGITATION Last administered on 12/26/17at 07:31; Start 12/18/17 at 13:15 Alprazolam (Xanax) 0.25 mg PRN Q8HRS PRN NG ANXIETY / AGITATION Last administered on 12/19/17at 01:13; Start 12/18/17 at 13:15; Stop 12/19/17 at 16:23 ; Status DC Pyridostigmine [place] (Mestinon) 60 mg BID NG Last administered on 12/18/17at 21:01; Start 12/18/17 at 13:00; Stop 12/19/17 at 16:23; Status DC Prednisone (Prednisone) 50 mg DAILY PO Last administered on 12/18/17at 16:03; Start 12/18/17 at 13:00; Stop 12/19/17 at 16:23; Status DC Famotidine (Pepcid) 20 mg QHS PO Last administered on 12/18/17at 21:01; Start at 21:00; Stop 12/19/17 at 16:23; Status DC Calcium Carbonate/ Glycine (Oscal) 500 mg TIDAFTMEAL PO ; Start 12/18/17 at 18: 00; Stop 12/19/17 at 16:23; Status DC Ergocalciferol (Vitamin D2) 50,000 unit MoTh PO ; Start 12/19/17 at 09:00; Stop 12/19/17 at 16:23; Status DC Lidocaine/Sodium Bicarbonate (Buffered Lidocaine 1%) 3 ml STK-MED ONCE .ROUTE ; Start 12/18/17 at 14:32; Stop 12/18/17 at 14:33; Status DC Heparin Sodium (Porcine) (Heparin Sodium) 10,000 unit STK-MED ONCE .ROUTE ; Start 12/18/17 at 14:32; Stop 12/18/17 at 14:33; Status DC Lidocaine/Sodium Bicarbonate (Buffered Lidocaine 1%) 3 ml 1X ONCE INJ Last administered on 12/18/17at 15:15; Start 12/18/17 at 15:15; Stop 12/18/17 at 15:16 ; Status DC Heparin Sodium (Porcine) (Heparin Sodium) 2,200 unit 1X ONCE INT CAT Last administered on 12/18/17 15:15; Start 12/18/17 at 15:15; Stop 12/18/17 at 15:16 ; Status DC Scopolamine (Transderm-Scop) 1 patch 1X ONCE TD Last administered on at 21:41; Start 12/18/17 at 21:30; Stop 12/19/17 at 16:23; Status DC Albumin Human 1,500 ml @ 0 mls/hr 1X ONCE IV Last administered on 12/19/17at 11:38; Start 12/19/17 at 08:15; Stop 12/19/17 at 08:16; Status DC Heparin Sodium (Porcine) (Heparin Sodium) 10,000 unit STK-MED ONCE .ROUTE ; Start 12/19/17 at 08:40; Stop 12/19/17 at 08:41; Status DC Info (Tpn Per Pharmacy) 1 each PRN DAILY PRN MC SEE COMMENTS Last administered on 12/25/17 13:27; Start 12/20/17 at 16:30 Pyridostigmine [place] (Regonol) 2.5 mg Q12HR IV Last administered on 19:52; Start 12/19/17 at 21:00 Methylprednisolone Sodium Succinate (SOLU-Medrol 40MG VIAL) 40 mg Q12HR IV Last administered on 12/25/17 19:51; Start 12/19/17 at 21:00 Famotidine (Pepcid Vial) 20 mg QHS IVP Last administered on 12/19/17at 21:33; Start 12/19/17 at 21:00; Stop 12/20/17 at 11:44; Status DC Morphine Sulfate (Morphine Sulfate) 2 mg PRN Q2HR PRN IV MODERATE TO SEVERE PAIN Last administered on 12/26/17 04:36; Start 12/19/17 at 23:15 Amino Acids/ Glycerin/ Electrolytes 1,000 ml @ 80 mls/hr [id number] IV Last administered on 12/20/17at 09:57; Start 12/20/17 at 09:30; Stop 12/20/17 at 11:44 ; Status DC Alteplase, Recombinant (Cathflo) 2 mg 1X ONCE IV Last administered on at 12:37; Start 12/20/17 at 11:45; Stop 12/20/17 at 11:46; Status DC Cyclobenzaprine HCl (Flexeril) 5 mg QID PO Last administered on 12/21/17at 09:10 ; Start 12/20/17 at 17:00 Cyclobenzaprine HCl (Flexeril) 10 mg 1X ONCE PO ; Start 12/20/17 at 11:45; Stop 12/20/17 at 11:53; Status DC Levothyroxine Sodium (Synthroid) 25 mcg DAILY07 PO ; Start 12/21/17 at 07:00; Stop 12/21/17 at 07:00; Status DC Levothyroxine Sodium 12.5 mcg/ Sodium Chloride 5 ml @ 100 mls/hr DAILY IVP Last administered on 12/25/17at 08:11; Start 12/21/17 at 09:00 Sodium Chloride 90 meq/Potassium Chloride 50 meq/ Potassium Phosphate 13.6 mmol/ Magnesium Sulfate 5 meq/ Calcium Gluconate 5 meq/ Multivitamins 10 ml/Chromium/ Copper/Manganese/ Seleni/Zn 1 ml/ Total Parenteral Nutrition/Amino Acids/ Dextrose/ Fat Emulsion Intravenous 1,512 ml @ 63 mls/hr TPN CONT IV Last administered on 12/20/17at 20:58; Start 12/20/17 at 22:00; Stop 12/21/17 at 21:59 ; Status DC Albumin Human 1,200 ml @ 0 mls/hr 1X ONCE IV Last administered on 12/21/17at 10:40; Start 12/21/17 at 08:45; Stop 12/21/17 at 08:46; Status DC Heparin Sodium (Porcine) (Heparin Sodium) 10,000 unit STK-MED ONCE .ROUTE ; Start 12/21/17 at 08:50; Stop 12/21/17 at 08:51; Status DC Diphenhydramine HCl (Benadryl) 50 mg STK-MED ONCE .ROUTE ; Start 12/21/17 at 11: 46; Stop 12/21/17 at 11:47; Status DC Diphenhydramine HCl (Benadryl) 50 mg 1X ONCE IVP Last administered on at 11:59; Start 12/21/17 at 12:00; Stop 12/21/17 at 12:01; Status DC Sodium Chloride 90 meq/Potassium Chloride 50 meq/ Potassium Phosphate 13.6 mmol/ Magnesium Sulfate 5 meq/ Calcium Gluconate 5 meq/ Multivitamins 10 ml/Chromium/ Copper/Manganese/ Seleni/Zn 1 ml/ Total Parenteral Nutrition/Amino Acids/ Dextrose/ Fat Emulsion Intravenous 1,512 ml @ 63 mls/hr TPN CONT IV Last administered on 12/21/17at 22:00; Start 12/21/17 at 22:00; Stop 12/22/17 at 21:59 ; Status DC Sodium Chloride 90 meq/Potassium Chloride 50 meq/ Potassium Phosphate 13.6 mmol/ Magnesium Sulfate 5 meq/ Calcium Gluconate 5 meq/ Multivitamins 10 ml/Chromium/ Copper/Manganese/ Seleni/Zn 1 ml/ Total Parenteral Nutrition/Amino Acids/ Dextrose/ Fat Emulsion Intravenous 1,512 ml @ 63 mls/hr TPN CONT IV Last administered on 12/22/17at 21:26; Start 12/22/17 at 22:00; Stop 12/23/17 at 21:59 ; Status DC Famotidine (Pepcid Vial) 20 mg QHS IVP Last administered on 12/25/17at 19:52; Start 12/23/17 at 21:00 Sodium Chloride 90 meq/Potassium Chloride 50 meq/ Potassium Phosphate 13.6 mmol/ Magnesium Sulfate 5 meq/ Calcium Gluconate 5 meq/ Multivitamins 10 ml/Chromium/ Copper/Manganese/ Seleni/Zn 1 ml/ Total Parenteral Nutrition/Amino Acids/ Dextrose/ Fat Emulsion Intravenous 1,512 ml @ 63 mls/hr TPN CONT IV Last administered on 12/23/17at 21:10; Start 12/23/17 at 22:00; Stop 12/24/17 at 21:59 ; Status DC Diphenhydramine HCl (Benadryl) 50 mg 1X ONCE IVP Last administered on at 17:33; Start 12/23/17 at 12:00; Stop 12/23/17 at 12:23; Status DC Albumin Human 1,500 ml @ 125 mls/hr 1X ONCE IV Last administered on at 17:34; Start 12/23/17 at 12:30; Stop 12/24/17 at 00:29; Status DC Heparin Sodium (Porcine) (Heparin Sodium) 10,000 unit STK-MED ONCE .ROUTE ; Start 12/23/17 at 14:57; Stop 12/23/17 at 14:58; Status DC Oxycodone/ Acetaminophen (Percocet 5/325) 1 tab PRN Q6HRS PRN PO PAIN; Start 12/23/17 at 20:45; Status Cancel Sodium Chloride 90 meq/Potassium Chloride 50 meq/ Potassium Phosphate 13.6 mmol/ Magnesium Sulfate 5 meq/ Calcium Gluconate 5 meq/ Multivitamins 10 ml/Chromium/ Copper/Manganese/ Seleni/Zn 1 ml/ Total Parenteral Nutrition/Amino Acids/ Dextrose/ Fat Emulsion Intravenous 1,512 ml @ 63 mls/hr TPN CONT IV Last administered on 12/24/17at 21:11; Start 12/24/17 at 22:00; Stop 12/25/17 at 21:59 ; Status DC Calcium Gluconate 2000 mg/Dextrose 120 ml @ 220 mls/hr 1X ONCE IV Last administered on 12/25/17at 09:51; Start 12/25/17 at 10:00; Stop 12/25/17 at 10:32 ; Status DC Diphenhydramine HCl (Benadryl) 50 mg 1X ONCE IVP Last administered on at 14:16; Start 12/25/17 at 09:30; Stop 12/25/17 at 09:31; Status DC Heparin Sodium (Porcine) (Heparin Sodium) 3,000 unit 1X ONCE IV Last administered on 12/25/17at 09:15; Start 12/25/17 at 09:15; Stop 12/25/17 at 09:16 ; Status DC Albumin Human 1,500 ml @ 0 mls/hr 1X ONCE IV Last administered on 12/25/17at 14:19; Start 12/25/17 at 10:45; Stop 12/25/17 at 10:46; Status DC Albumin Human 200 ml @ 0 mls/hr 1X ONCE IV ; Start 12/25/17 at 10:45; Stop 12/25/17 at 10:46; Status DC Heparin Sodium (Porcine) (Heparin Sodium) 10,000 unit STK-MED ONCE .ROUTE ; Start 12/25/17 at 12:39; Stop 12/25/17 at 12:40; Status DC Insulin Human Lispro (HumaLOG) 0-5 UNITS TIDWMEALS SQ Last administered on 12/25at 17:52; Start 10/3/18 at 17:00 Dextrose (Dextrose 50%-Water Syringe) 12.5 gm PRN Q15MIN PRN IV SEE COMMENTS; Start 12/25/17 at 13:30 Sodium Chloride 90 meq/Potassium Chloride 50 meq/ Potassium Phosphate 13.6 mmol/ Magnesium Sulfate 5 meq/ Calcium Gluconate 5 meq/ Multivitamins 10 ml/Chromium/ Copper/Manganese/ Seleni/Zn 1 ml/ Total Parenteral Nutrition/Amino Acids/ Dextrose/ Fat Emulsion Intravenous 1,512 ml @ 63 mls/hr TPN CONT IV Last administered on 12/25/17at 21:42; Start 12/25/17 at 22:00; Stop 12/26/17 at 21:59 Active Scripts Active Reported Amoxicillin 875 Mg Tablet 1 Tab PO BID Levothyroxine Sodium 25 Mcg Tablet 1 Tab PO DAILY Proair Hfa Inhaler (Albuterol Sulfate) 8.5 Gm Hfa.aer.ad 1 Puff INH PRN Q6HRS PRN [kaitlib fe] Hydrocodone-Apap 7.5-325/15 Soln (Hydrocodone Bit/Acetaminophen) 15 Ml Solution 15 Ml PO PRN Q4HRS PRN Prednisone 50 Mg Tablet 1 Tab PO DAILY Fluticasone Propionate Nasal Warrior (Fluticasone Propionate) 16 Gm Warrior.susp 1 Warrior NS DAILY [zoloft] [ativan] Vitals/I & O Vital Sign - Last 24 Hours 12/25/17 12/25/17 12/25/17 12/25/17 11:00 12:58 19:30 19:41 Temp 97.5 97.6 97.5 97.6 Pulse 103 125 Resp 16 18 18 B/P (MAP) 146/91 (109) 132/79 (96) Pulse Ox 99 98 97 O2 Delivery Room Air Room Air Room Air Room Air 12/25/17 12/25/17 12/25/17 12/26/17 19:55 21:54 23:06 00:50 Temp 100.9 100.9 Pulse 105 Resp 16 18 16 B/P (MAP) 153/83 (106) Pulse Ox 97 95 97 O2 Delivery Room Air Room Air Room Air Room Air 12/26/17 12/26/17 12/26/17 12/26/17 02:58 04:36 05:06 07:00 Temp 97.6 98.9 97.6 98.9 Pulse 81 67 Resp 18 16 16 12 B/P (MAP) 136/82 (100) 137/95 (109) Pulse Ox 96 96 96 98 O2 Delivery Room Air Room Air Room Air Room Air Intake and Output 12/25/17 12/25/17 12/26/17 15:00 23:00 07:00 Intake Total 0 ml 930 ml Balance 0 ml 930 ml SINDY SANTILLAN MD Dec 26, 2017 08:22
[2017-12-26] MEDS: CYCLOBENZAPRINE 10 MG TABLET. PO SCH ×4 (09:00→20:14)
[2017-12-26] MEDS: FLUTICASONE 50MCG/NASAL SPRAY 16GM BOTTLE. NS SCH (09:53)
[2017-12-26] MEDS: methylPREDNISolone SOD SUCC PF 40 MG/ML VIAL. IV SCH ×2 (09:55→20:10)
[2017-12-26] MEDS: PYRIDOSTIGMINE BROMIDE 10 MG/2 ML AMPUL. IV SCH ×2 (09:56→17:42)
[2017-12-26] MEDS: NORMAL SALINE IVP SCH (09:57)
[2017-12-26] MEDS: LEVOTHYROXINE SODIUM IVP SCH (09:57)
--- NOTE | 2017-12-26 10:20 | PDOC ---
Subjective: Subjective: Feels the same - head and neck are "heavy" Objective: Vital Signs: Vital Signs Date Time Temp Pulse Resp B/P (MAP) Pulse Ox O2 Delivery O2 Flow Rate FiO2 12/26/17 08:38 99 Room Air 12/26/17 07:00 98.9 67 12 137/95 (109) 98.9 Labs: Laboratory Tests Test 12/25/17 10:40 12/25/17 17:03 12/26/17 00:28 12/26/17 05:21 Hepatitis C IgG Antibody Nonreactive Glucose (Fingerstick) 191 mg/dL 224 mg/dL Sodium Level 141 mmol/L Potassium Level 4.3 mmol/L Chloride Level 105 mmol/L Carbon Dioxide Level 31 mmol/L Anion Gap 5 Blood Urea Nitrogen 18 mg/dL Creatinine 0.5 mg/dL Estimated GFR (Cockcroft-Gault) 152.9 BUN/Creatinine Ratio 36 Glucose Level 184 mg/dL Calcium Level 8.6 mg/dL Ionized Calcium 1.19 mmol/L Phosphorus Level 3.4 mg/dL Magnesium Level 2.3 mg/dL Total Bilirubin 0.6 mg/dL Aspartate Amino Transf (AST/SGOT) 19 U/L Alanine Aminotransferase (ALT/SGPT) 83 U/L Alkaline Phosphatase 30 U/L Total Protein 5.5 g/dL Albumin 3.7 g/dL Albumin/Globulin Ratio 2.1 Triglycerides Level 154 mg/dL PE: GEN: NAD, up to chair LUNGS: CTAB HEART: RRR, ABD: S/ND/NT NEURO/PSYCH: A & O 3 - voice seems stronger today A/P: Myasthenia Gravis w/ oropharyngeal dysphagia Elevated LFTs - better -- Continue TPN, meds per neuro. PEG if weakness persists. OFELIA QUINN Dec 26, 2017 10:20
[2017-12-26 11:00] VITALS: BP 123/76
[2017-12-26] MEDS ORDERED: BARIUM SULFATE 40% (APPLE) 148 GM PWD. PO ONE (12:00)
[2017-12-26] MEDS ORDERED: VITS A & D/LANOLIN TOPICAL OINTMENT 56GM TUBE. TP PRN (14:15)
--- NOTE | 2017-12-26 14:20 | RAD ---
Video dysphasia study, 12/26/2017: History: Weakness, dysphasia, myasthenia gravis The swallowing mechanism was examined fluoroscopically in the lateral projection while the patient ingested a variety of food materials mixed with barium. 2.7 minutes of fluoroscopy time was utilized. One video fluoroscopic loop was recorded by a member of the speech Department. When ingesting small amounts of the thin liquids there was weak pharyngeal peristalsis with considerable stasis of material in the piriform sinuses. A portion of the bolus does pass into the lower cervical esophagus. With thicker materials there was also weak pharyngeal peristalsis with retention of material in the piriform sinuses. Several swallows were necessary to clear some of this material. No significant laryngeal penetration or elaine aspiration was observed, although the patient appears at risk for aspiration. IMPRESSION: Abnormal swallowing mechanism with weak pharyngeal peristalsis and a large amount of piriform sinus residue.
--- NOTE | 2017-12-26 15:50 | PDOC ---
PROGRESS NOTES Assessment Problems Medical Problems: (1) Diplopia Status: Acute (2) Marijuana abuse Status: Acute (3) Myasthenia gravis with acute exacerbation Status: Acute (4) Neck muscle weakness Status: Acute (5) RUE weakness Status: Acute (6) Sinusitis Status: Acute Myasthenia gravis, on steroids and 4 plasmaphereses Myasthenia serology is positive Chest CT negative for thymoma Also has Eze's thyroiditis Also has anxiety disorder Also has elevated transaminases and positive Hepatitis B surface anybody Plan Speech therapy, I discuss results of today's swallow study, she is improved clinically, but still needs PEG Monitor negative inspiratory force Plasmapheresis QOD, now plan on continuing through 01/01 IV steroids Increase pyridostigmine She needs a PEG tube, cannot tolerate NG and risks of prolonged use of parenteral nutrition G.I. consult regarding the PEG as well as elevated transaminases All above discussed with patient, mother I also had discussion with boyfriend who uses curse words to describe the treatment in the hospital, but mother and patient are happy with their care. Subjective still anxious Objective Vital Signs Date Time Temp Pulse Resp B/P (MAP) Pulse Ox O2 Delivery O2 Flow Rate FiO2 12/26/17 14:59 19 Room Air 12/26/17 11:00 97.9 75 123/76 (92) 99 97.9 Intake and Output 12/26/17 07:00 Intake Total 930 ml Balance 930 ml Intake Oral 300 ml Other 630 ml # Voids 3 PHYSICAL EXAM Alert. Oriented to time, place and person. PERRL. EOMI. CN: no focal findings. no diplopia. Voice is stronger than yesterday, hypernasal Muscle tone: normal. Muscle strength: 5/5, no longer has neck extension weakness DTR: 2+ Plantar reflex: Flexor Gait: not examined in bed. Sensory exam: no abnormal findings. No cerebellar signs elicited. Review of Relevant I have reviewed the following items maliha (where applicable) has been applied. Labs Laboratory Tests Test 12/25/17 05:00 12/25/17 10:40 12/25/17 17:03 12/26/17 00:28 White Blood Count 11.0 x10^3/uL (4.0-11.0) Red Blood Count 5.01 x10^6/uL (3.50-5.40) Hemoglobin 14.1 g/dL (12.0-15.5) Hematocrit 42.0 % (36.0-47.0) Mean Corpuscular Volume 84 fL (79-100) Mean Corpuscular Hemoglobin 28 pg (25-35) Mean Corpuscular Hemoglobin Concent 34 g/dL (31-37) Red Cell Distribution Width 12.4 % (11.5-14.5) Platelet Count 112 x10^3/uL (140-400) Neutrophils (%) (Auto) 82 % (31-73) Lymphocytes (%) (Auto) 9 % (24-48) Monocytes (%) (Auto) 9 % (0-9) Eosinophils (%) (Auto) 0 % (0-3) Basophils (%) (Auto) 0 % (0-3) Neutrophils # (Auto) 9.0 x10^3uL (1.8-7.7) Lymphocytes # (Auto) 1.0 x10^3/uL (1.0-4.8) Monocytes # (Auto) 1.0 x10^3/uL (0.0-1.1) Eosinophils # (Auto) 0.0 x10^3/uL (0.0-0.7) Basophils # (Auto) 0.0 x10^3/uL (0.0-0.2) Prothrombin Time 14.4 SEC (11.7-14.0) Prothromb Time International Ratio 1.2 (0.8-1.1) Activated Partial Thromboplast Time 27 SEC (24-38) Fibrinogen 127 mg/dL (200-440) Sodium Level 141 mmol/L (136-145) Potassium Level 4.4 mmol/L (3.5-5.1) Chloride Level 103 mmol/L (98-107) Carbon Dioxide Level 31 mmol/L (21-32) Anion Gap 7 (6-14) Blood Urea Nitrogen 18 mg/dL (7-20) Creatinine 0.5 mg/dL (0.6-1.0) Estimated GFR (Cockcroft-Gault) 152.9 BUN/Creatinine Ratio 36 (6-20) Glucose Level 216 mg/dL (70-99) Calcium Level 8.0 mg/dL (8.5-10.1) Magnesium Level 2.3 mg/dL (1.8-2.4) Total Bilirubin 0.5 mg/dL (0.2-1.0) Aspartate Amino Transf (AST/SGOT) 57 U/L (15-37) Alanine Aminotransferase (ALT/SGPT) 199 U/L (14-59) Alkaline Phosphatase 44 U/L (46-116) Total Protein 5.8 g/dL (6.4-8.2) Albumin 3.4 g/dL (3.4-5.0) Albumin/Globulin Ratio 1.4 (1.0-1.7) Hepatitis C IgG Antibody Nonreactive (Nonreactive) Glucose (Fingerstick) 191 mg/dL (70-99) 224 mg/dL (70-99) Test 12/26/17 05:21 12/26/17 12:09 Sodium Level 141 mmol/L (136-145) Potassium Level 4.3 mmol/L (3.5-5.1) Chloride Level 105 mmol/L (98-107) Carbon Dioxide Level 31 mmol/L (21-32) Anion Gap 5 (6-14) Blood Urea Nitrogen 18 mg/dL (7-20) Creatinine 0.5 mg/dL (0.6-1.0) Estimated GFR (Cockcroft-Gault) 152.9 BUN/Creatinine Ratio 36 (6-20) Glucose Level 184 mg/dL (70-99) Calcium Level 8.6 mg/dL (8.5-10.1) Ionized Calcium 1.19 mmol/L (1.13-1.32) Phosphorus Level 3.4 mg/dL (2.6-4.7) Magnesium Level 2.3 mg/dL (1.8-2.4) Total Bilirubin 0.6 mg/dL (0.2-1.0) Aspartate Amino Transf (AST/SGOT) 19 U/L (15-37) Alanine Aminotransferase (ALT/SGPT) 83 U/L (14-59) Alkaline Phosphatase 30 U/L (46-116) Total Protein 5.5 g/dL (6.4-8.2) Albumin 3.7 g/dL (3.4-5.0) Albumin/Globulin Ratio 2.1 (1.0-1.7) Triglycerides Level 154 mg/dL (0-150) Glucose (Fingerstick) 159 mg/dL (70-99) Laboratory Tests Test 12/25/17 17:03 12/26/17 00:28 12/26/17 05:21 12/26/17 12:09 Glucose (Fingerstick) 191 mg/dL (70-99) 224 mg/dL (70-99) 159 mg/dL (70-99) Sodium Level 141 mmol/L (136-145) Potassium Level 4.3 mmol/L (3.5-5.1) Chloride Level 105 mmol/L (98-107) Carbon Dioxide Level 31 mmol/L (21-32) Anion Gap 5 (6-14) Blood Urea Nitrogen 18 mg/dL (7-20) Creatinine 0.5 mg/dL (0.6-1.0) Estimated GFR (Cockcroft-Gault) 152.9 BUN/Creatinine Ratio 36 (6-20) Glucose Level 184 mg/dL (70-99) Calcium Level 8.6 mg/dL (8.5-10.1) Ionized Calcium 1.19 mmol/L (1.13-1.32) Phosphorus Level 3.4 mg/dL (2.6-4.7) Magnesium Level 2.3 mg/dL (1.8-2.4) Total Bilirubin 0.6 mg/dL (0.2-1.0) Aspartate Amino Transf (AST/SGOT) 19 U/L (15-37) Alanine Aminotransferase (ALT/SGPT) 83 U/L (14-59) Alkaline Phosphatase 30 U/L (46-116) Total Protein 5.5 g/dL (6.4-8.2) Albumin 3.7 g/dL (3.4-5.0) Albumin/Globulin Ratio 2.1 (1.0-1.7) Triglycerides Level 154 mg/dL (0-150) Medications Current Medications Meclizine HCl (Antivert) 25 mg 1X ONCE PO Last administered on 12/17/17at 20:00 ; Start 12/17/17 at 20:00; Stop 12/17/17 at 20:01; Status DC Sodium Chloride 1,000 ml @ 1,000 mls/hr 1X ONCE IV Last administered on at 20:35; Start 12/17/17 at 20:15; Stop 12/17/17 at 21:14; Status DC Ketorolac Tromethamine (Toradol 15mg Vial) 15 mg 1X ONCE IV Last administered on 12/17/17at 20:36; Start 12/17/17 at 20:15; Stop 12/17/17 at 20:16; Status DC Diphenhydramine HCl (Benadryl) 25 mg 1X ONCE PO Last administered on at 02:16; Start 12/18/17 at 02:15; Stop 12/18/17 at 02:18; Status DC Acetaminophen (Tylenol) 500 mg PRN Q6HRS PRN PO MILD PAIN / TEMP; Start at 09:00 Acetaminophen/ Codeine Phosphate (Tylenol #3) 1 tab PRN Q6HRS PRN PO PAIN; Start 12/18/17 at 09:00; Stop 12/18/17 at 12:08; Status DC Ibuprofen (Motrin) 600 mg PRN Q6HRS PRN PO INFLAMMATION; Start 12/18/17 at 09: 00; Stop 12/19/17 at 16:23; Status DC Ondansetron HCl (Zofran) 4 mg PRN Q6HRS PRN IV NAUSEA/VOMITING Last administered on 12/24/17at 18:03; Start 12/18/17 at 09:00 Ondansetron HCl (Zofran Odt) 4 mg PRN Q6HRS PRN PO NAUSEA/VOMITING; Start 12/18 at 09:00; Stop 12/18/17 at 12:08; Status DC Fluticasone Propionate (Flonase) 1 spray DAILY NS Last administered on at 09:53; Start 12/18/17 at 09:00 Acetaminophen/ Hydrocodone Bitart (Lortab 7.5-325/ 15ml Oral Solution) 15 ml PRN Q4HRS PRN PO MODERATE PAIN; Start 12/18/17 at 09:00; Stop 12/19/17 at 16:23 ; Status DC Non-Formulary Medication (Albuterol Sulfate (Proair Hfa Inhaler)) 1 puff PRN Q6HRS PRN INH SHORTNESS OF BREATH; Start 12/18/17 at 09:00; Status UNV Amoxicillin (Amoxil) 750 mg BID PO Last administered on 12/18/17at 21:02; Start 12/18/17 at 10:00; Stop 12/19/17 at 16:23; Status DC Levothyroxine Sodium (Synthroid) 25 mcg DAILY07 PO ; Start 12/18/17 at 10:30; Stop 12/18/17 at 12:08; Status DC Prednisone (Prednisone) 50 mg DAILY PO ; Start 12/18/17 at 10:00; Stop 12/18/17 at 12:08; Status DC Alprazolam (Xanax) 0.25 mg PRN Q8HRS PRN PO ANXIETY / AGITATION; Start at 09:00; Stop 12/19/17 at 08:14; Status DC Zolpidem Tartrate (Ambien) 5 mg PRN QHS PRN PO INSOMNIA; Start 12/18/17 at 09: 00; Stop 12/18/17 at 12:08; Status DC Cetirizine HCl (ZyrTEC) 10 mg DAILY PO ; Start 12/18/17 at 10:00; Stop 12/18/17 at 12:08; Status DC Non-Formulary Medication 1 ea 1X ONCE IV ; Start 12/18/17 at 09:00; Stop at 09:01; Status UNV Potassium Chloride/Dextrose/ Sod Cl 1,000 ml @ 80 mls/hr [id number] IV Last administered on 12/19/17at 10:00; Start 12/18/17 at 09:00; Stop 12/20/17 at 09:07 ; Status DC Albuterol Sulfate (Ventolin Neb Soln) 2.5 mg PRN Q6HRS PRN NEB SHORTNESS OF BREATH Last administered on 12/25/17at 19:29; Start 12/18/17 at 09:30 Iohexol (Omnipaque 300 Mg/ml) 75 ml 1X ONCE IV Last administered on 12/18/17at 10:31; Start 12/18/17 at 10:15; Stop 12/18/17 at 10:16; Status DC Info (CONTRAST GIVEN -- Rx MONITORING) 1 each PRN DAILY PRN MC SEE COMMENTS; Start 12/18/17 at 10:15; Stop 12/20/17 at 10:14; Status DC Levothyroxine Sodium 15 mcg/ Sodium Chloride 5 ml @ 100 mls/hr DAILY IVP Last administered on 12/20/17at 09:41; Start 12/18/17 at 12:30; Stop 12/20/17 at 11:44 ; Status DC Lorazepam (Ativan) 1 mg PRN Q4HRS PRN IV ANXIETY / AGITATION Last administered on 12/26/17at 15:00; Start 12/18/17 at 13:15 Alprazolam (Xanax) 0.25 mg PRN Q8HRS PRN NG ANXIETY / AGITATION Last administered on 12/19/17at 01:13; Start 12/18/17 at 13:15; Stop 12/19/17 at 16:23 ; Status DC Pyridostigmine [place] (Mestinon) 60 mg BID NG Last administered on 12/18/17at 21:01; Start 12/18/17 at 13:00; Stop 12/19/17 at 16:23; Status DC Prednisone (Prednisone) 50 mg DAILY PO Last administered on 12/18/17at 16:03; Start 12/18/17 at 13:00; Stop 12/19/17 at 16:23; Status DC Famotidine (Pepcid) 20 mg QHS PO Last administered on 12/18/17at 21:01; Start at 21:00; Stop 12/19/17 at 16:23; Status DC Calcium Carbonate/ Glycine (Oscal) 500 mg TIDAFTMEAL PO ; Start 12/18/17 at 18: 00; Stop 12/19/17 at 16:23; Status DC Ergocalciferol (Vitamin D2) 50,000 unit MoTh PO ; Start 12/19/17 at 09:00; Stop 12/19/17 at 16:23; Status DC Lidocaine/Sodium Bicarbonate (Buffered Lidocaine 1%) 3 ml STK-MED ONCE .ROUTE ; Start 12/18/17 at 14:32; Stop 12/18/17 at 14:33; Status DC Heparin Sodium (Porcine) (Heparin Sodium) 10,000 unit STK-MED ONCE .ROUTE ; Start 12/18/17 at 14:32; Stop 12/18/17 at 14:33; Status DC Lidocaine/Sodium Bicarbonate (Buffered Lidocaine 1%) 3 ml 1X ONCE INJ Last administered on 12/18/17at 15:15; Start 12/18/17 at 15:15; Stop 12/18/17 at 15:16 ; Status DC Heparin Sodium (Porcine) (Heparin Sodium) 2,200 unit 1X ONCE INT CAT Last administered on 12/18/17at 15:15; Start 12/18/17 at 15:15; Stop 12/18/17 at 15:16 ; Status DC Scopolamine (Transderm-Scop) 1 patch 1X ONCE TD Last administered on at 21:41; Start 12/18/17 at 21:30; Stop 12/19/17 at 16:23; Status DC Albumin Human 1,500 ml @ 0 mls/hr 1X ONCE IV Last administered on 12/19/17at 11:38; Start 12/19/17 at 08:15; Stop 12/19/17 at 08:16; Status DC Heparin Sodium (Porcine) (Heparin Sodium) 10,000 unit STK-MED ONCE .ROUTE ; Start 12/19/17 at 08:40; Stop 12/19/17 at 08:41; Status DC Info (Tpn Per Pharmacy) 1 each PRN DAILY PRN MC SEE COMMENTS Last administered on 12/25/17at 13:27; Start 12/20/17 at 16:30 Pyridostigmine [place] (Regonol) 2.5 mg Q12HR IV Last administered on 09:56; Start 12/19/17 at 21:00 Methylprednisolone Sodium Succinate (SOLU-Medrol 40MG VIAL) 40 mg Q12HR IV Last administered on 12/26/17 09:55; Start 12/19/17 at 21:00 Famotidine (Pepcid Vial) 20 mg QHS IVP Last administered on 12/19/17at 21:33; Start 12/19/17 at 21:00; Stop 12/20/17 at 11:44; Status DC Morphine Sulfate (Morphine Sulfate) 2 mg PRN Q2HR PRN IV MODERATE TO SEVERE PAIN Last administered on 12/26/17 14:59; Start 12/19/17 at 23:15 Amino Acids/ Glycerin/ Electrolytes 1,000 ml @ 80 mls/hr [id number] IV Last administered on 12/20/17 09:57; Start 12/20/17 at 09:30; Stop 12/20/17 at 11:44 ; Status DC Alteplase, Recombinant (Cathflo) 2 mg 1X ONCE IV Last administered on at 12:37; Start 12/20/17 at 11:45; Stop 12/20/17 at 11:46; Status DC Cyclobenzaprine HCl (Flexeril) 5 mg QID PO Last administered on 12/21/17at 09:10 ; Start 12/20/17 at 17:00 Cyclobenzaprine HCl (Flexeril) 10 mg 1X ONCE PO ; Start 12/20/17 at 11:45; Stop 12/20/17 at 11:53; Status DC Levothyroxine Sodium (Synthroid) 25 mcg DAILY07 PO ; Start 12/21/17 at 07:00; Stop 12/21/17 at 07:00; Status DC Levothyroxine Sodium 12.5 mcg/ Sodium Chloride 5 ml @ 100 mls/hr DAILY IVP Last administered on 12/26/17at 09:57; Start 12/21/17 at 09:00 Sodium Chloride 90 meq/Potassium Chloride 50 meq/ Potassium Phosphate 13.6 mmol/ Magnesium Sulfate 5 meq/ Calcium Gluconate 5 meq/ Multivitamins 10 ml/Chromium/ Copper/Manganese/ Seleni/Zn 1 ml/ Total Parenteral Nutrition/Amino Acids/ Dextrose/ Fat Emulsion Intravenous 1,512 ml @ 63 mls/hr TPN CONT IV Last administered on 12/20/17at 20:58; Start 12/20/17 at 22:00; Stop 12/21/17 at 21:59 ; Status DC Albumin Human 1,200 ml @ 0 mls/hr 1X ONCE IV Last administered on 12/21/17at 10:40; Start 12/21/17 at 08:45; Stop 12/21/17 at 08:46; Status DC Heparin Sodium (Porcine) (Heparin Sodium) 10,000 unit STK-MED ONCE .ROUTE ; Start 12/21/17 at 08:50; Stop 12/21/17 at 08:51; Status DC Diphenhydramine HCl (Benadryl) 50 mg STK-MED ONCE .ROUTE ; Start 12/21/17 at 11: 46; Stop 12/21/17 at 11:47; Status DC Diphenhydramine HCl (Benadryl) 50 mg 1X ONCE IVP Last administered on at 11:59; Start 12/21/17 at 12:00; Stop 12/21/17 at 12:01; Status DC Sodium Chloride 90 meq/Potassium Chloride 50 meq/ Potassium Phosphate 13.6 mmol/ Magnesium Sulfate 5 meq/ Calcium Gluconate 5 meq/ Multivitamins 10 ml/Chromium/ Copper/Manganese/ Seleni/Zn 1 ml/ Total Parenteral Nutrition/Amino Acids/ Dextrose/ Fat Emulsion Intravenous 1,512 ml @ 63 mls/hr TPN CONT IV Last administered on 12/21/17at 22:00; Start 12/21/17 at 22:00; Stop 12/22/17 at 21:59 ; Status DC Sodium Chloride 90 meq/Potassium Chloride 50 meq/ Potassium Phosphate 13.6 mmol/ Magnesium Sulfate 5 meq/ Calcium Gluconate 5 meq/ Multivitamins 10 ml/Chromium/ Copper/Manganese/ Seleni/Zn 1 ml/ Total Parenteral Nutrition/Amino Acids/ Dextrose/ Fat Emulsion Intravenous 1,512 ml @ 63 mls/hr TPN CONT IV Last administered on 12/22/17at 21:26; Start 12/22/17 at 22:00; Stop 12/23/17 at 21:59 ; Status DC Famotidine (Pepcid Vial) 20 mg QHS IVP Last administered on 12/25/17at 19:52; Start 12/23/17 at 21:00 Sodium Chloride 90 meq/Potassium Chloride 50 meq/ Potassium Phosphate 13.6 mmol/ Magnesium Sulfate 5 meq/ Calcium Gluconate 5 meq/ Multivitamins 10 ml/Chromium/ Copper/Manganese/ Seleni/Zn 1 ml/ Total Parenteral Nutrition/Amino Acids/ Dextrose/ Fat Emulsion Intravenous 1,512 ml @ 63 mls/hr TPN CONT IV Last administered on 12/23/17at 21:10; Start 12/23/17 at 22:00; Stop 12/24/17 at 21:59 ; Status DC Diphenhydramine HCl (Benadryl) 50 mg 1X ONCE IVP Last administered on at 17:33; Start 12/23/17 at 12:00; Stop 12/23/17 at 12:23; Status DC Albumin Human 1,500 ml @ 125 mls/hr 1X ONCE IV Last administered on at 17:34; Start 12/23/17 at 12:30; Stop 12/24/17 at 00:29; Status DC Heparin Sodium (Porcine) (Heparin Sodium) 10,000 unit STK-MED ONCE .ROUTE ; Start 12/23/17 at 14:57; Stop 12/23/17 at 14:58; Status DC Oxycodone/ Acetaminophen (Percocet 5/325) 1 tab PRN Q6HRS PRN PO PAIN; Start 12/23/17 at 20:45; Status Cancel Sodium Chloride 90 meq/Potassium Chloride 50 meq/ Potassium Phosphate 13.6 mmol/ Magnesium Sulfate 5 meq/ Calcium Gluconate 5 meq/ Multivitamins 10 ml/Chromium/ Copper/Manganese/ Seleni/Zn 1 ml/ Total Parenteral Nutrition/Amino Acids/ Dextrose/ Fat Emulsion Intravenous 1,512 ml @ 63 mls/hr TPN CONT IV Last administered on 12/24/17at 21:11; Start 12/24/17 at 22:00; Stop 12/25/17 at 21:59 ; Status DC Calcium Gluconate 2000 mg/Dextrose 120 ml @ 220 mls/hr 1X ONCE IV Last administered on 12/25/17at 09:51; Start 12/25/17 at 10:00; Stop 12/25/17 at 10:32 ; Status DC Diphenhydramine HCl (Benadryl) 50 mg 1X ONCE IVP Last administered on at 14:16; Start 12/25/17 at 09:30; Stop 12/25/17 at 09:31; Status DC Heparin Sodium (Porcine) (Heparin Sodium) 3,000 unit 1X ONCE IV Last administered on 12/25/17at 09:15; Start 12/25/17 at 09:15; Stop 12/25/17 at 09:16 ; Status DC Albumin Human 1,500 ml @ 0 mls/hr 1X ONCE IV Last administered on 12/25/17at 14:19; Start 12/25/17 at 10:45; Stop 12/25/17 at 10:46; Status DC Albumin Human 200 ml @ 0 mls/hr 1X ONCE IV ; Start 12/25/17 at 10:45; Stop 12/25/17 at 10:46; Status DC Heparin Sodium (Porcine) (Heparin Sodium) 10,000 unit STK-MED ONCE .ROUTE ; Start 12/25/17 at 12:39; Stop 12/25/17 at 12:40; Status DC Insulin Human Lispro (HumaLOG) 0-5 UNITS TIDWMEALS SQ Last administered on 12/26at 12:16; Start 12/25/17 at 17:00 Dextrose (Dextrose 50%-Water Syringe) 12.5 gm PRN Q15MIN PRN IV SEE COMMENTS; Start 12/25/17 at 13:30 Sodium Chloride 90 meq/Potassium Chloride 50 meq/ Potassium Phosphate 13.6 mmol/ Magnesium Sulfate 5 meq/ Calcium Gluconate 5 meq/ Multivitamins 10 ml/Chromium/ Copper/Manganese/ Seleni/Zn 1 ml/ Total Parenteral Nutrition/Amino Acids/ Dextrose/ Fat Emulsion Intravenous 1,512 ml @ 63 mls/hr TPN CONT IV Last administered on 12/25/17at 21:42; Start 12/25/17 at 22:00; Stop 12/26/17 at 21:59 Barium Sulfate (Var[place]ar Thin Liquid Apple) 148 gm 1X ONCE PO Last administered on 12/26/17at 13:57; Start 12/26/17 at 12:00; Stop 12/26/17 at 12:01 ; Status DC Sodium Chloride 90 meq/Potassium Chloride 50 meq/ Potassium Phosphate 13.6 mmol/ Magnesium Sulfate 5 meq/ Calcium Gluconate 5 meq/ Multivitamins 10 ml/Chromium/ Copper/Manganese/ Seleni/Zn 1 ml/ Total Parenteral Nutrition/Amino Acids/ Dextrose/ Fat Emulsion Intravenous 1,512 ml @ 63 mls/hr TPN CONT IV ; Start 12/26/17 at 22:00; Stop 12/27/17 at 21:59 Vitamin A/Vitamin D (Vitamin A & D Ointment) 1 lila PRN Q1HR PRN TP SKIN PROTECTION; Start 12/26/17 at 14:15 Active Scripts Active Reported Amoxicillin 875 Mg Tablet 1 Tab PO BID Levothyroxine Sodium 25 Mcg Tablet 1 Tab PO DAILY Proair Hfa Inhaler (Albuterol Sulfate) 8.5 Gm Hfa.aer.ad 1 Puff INH PRN Q6HRS PRN [kaitlib fe] Hydrocodone-Apap 7.5-325/15 Soln (Hydrocodone Bit/Acetaminophen) 15 Ml Solution 15 Ml PO PRN Q4HRS PRN Prednisone 50 Mg Tablet 1 Tab PO DAILY Fluticasone Propionate Nasal [place] (Fluticasone Propionate) 16 Gm War.susp 1 War NS DAILY [zoloft] [ativan] Vitals/I & O Vital Sign - Last 24 Hours 12/25/17 12/25/17 12/25/17 12/25/17 19:30 19:41 19:55 21:54 Temp 97.6 97.6 Pulse 125 Resp 18 16 B/P (MAP) 132/79 (96) Pulse Ox 98 97 97 O2 Delivery Room Air Room Air Room Air Room Air 12/25/17 12/26/17 12/26/17 12/26/17 23:06 00:50 02:58 04:36 Temp 100.9 97.6 100.9 97.6 Pulse 105 81 Resp 18 16 18 16 B/P (MAP) 153/83 (106) 136/82 (100) Pulse Ox 95 97 96 96 O2 Delivery Room Air Room Air Room Air Room Air 12/26/17 12/26/17 12/26/17 12/26/17 05:06 07:00 08:00 08:38 Temp 98.9 98.9 Pulse 67 Resp 16 12 B/P (MAP) 137/95 (109) Pulse Ox 96 98 99 O2 Delivery Room Air Room Air Room Air Room Air 12/26/17 12/26/17 12/26/17 11:00 12:21 14:59 Temp 97.9 97.9 Pulse 75 Resp 16 19 B/P (MAP) 123/76 (92) Pulse Ox 99 O2 Delivery Room Air Room Air Room Air Intake and Output 12/25/17 12/25/17 12/26/17 15:00 23:00 07:00 Intake Total 0 ml 930 ml Balance 0 ml 930 ml GAURAV BARONE MD Dec 26, 2017 15:50
[2017-12-26] MEDS: TPN PER PHARMACY MC PRN (17:33)
[2017-12-26] MEDS: ALBUTEROL SULFATE 2.5 MG/3 ML NEBU. NEB PRN (19:41)
[2017-12-26 19:44] VITALS: BP 133/84
[2017-12-26] MEDS: FAMOTIDINE 20 MG/2 ML VIAL IVP SCH (20:13)
[2017-12-26] MEDS ORDERED: [UNRECOGNIZED DRUG - OTHER] IV SCH ×10 (22:00)
[2017-12-26] MEDS ORDERED: DEXTROSE 70% IV SCH ×10 (22:00)
[2017-12-26] MEDS ORDERED: TOTAL PARENTERAL NUTRITION IV SCH ×10 (22:00)
[2017-12-26] MEDS ORDERED: AMINO ACIDS IV SCH ×10 (22:00)
[2017-12-26 23:56] VITALS: BP 107/72
[2017-12-27] VITALS (10 sets, daily range): BP systolic 114–139; BP diastolic 65–97
[2017-12-27] MEDS: MORPHINE SULFATE 2 MG/ML VIAL. IV PRN ×6 (00:48→21:48)
[2017-12-27] MEDS: PYRIDOSTIGMINE BROMIDE 10 MG/2 ML AMPUL. IV SCH ×3 (00:48→18:34)
[2017-12-27 07:05] LABS: ALBUMIN 3.6 g/dL (3.4-5.0); ALBUMIN/GLOBULIN RATIO 1.7 (1.0-1.7); CALCIUM 8.9 mg/dL (8.5-10.1); CREATININE 0.5 mg/dL (0.6-1.0); GFR 152.9; POTASSIUM 4.6 mmol/L (3.5-5.1); TOTAL BILIRUBIN 0.4 mg/dL (0.2-1.0); TOTAL PROTEIN 5.7 g/dL (6.4-8.2)
[2017-12-27] MEDS: INSULIN LISPRO 300 UNITS/3 ML INSULN.PEN. SQ SCH ×3 (08:00→18:31)
--- NOTE | 2017-12-27 08:05 | PDOC ---
PROGRESS NOTES Chief Complaint Chief Complaint myasthenia gravis - new diagnosis Diplopia Dysphagia Eze's thyroiditis Easy bruising History of Present Illness History of Present Illness Pleasant today, feels the same, drowsy, has started plasmapheresis treatments tolerated well,-has an indwelling right subclavian catheter, due today for a session. Still stiff neck, diplopia improved now, right side hand weakness is better. States she is having weakness repositioning and rash on her back is better. Had some issues with Dobbhoff kept on coiling hence now PICC line on the left and TPN going. She will not consent to NGT again, have discussed PEG or J-tube with her and mother bedside, they are still contemplating, would like to discuss with GI. She is able to spit up her secretions-doing well with NIF, d/w RT. She had a videofluoroscopic examination with BULK CLERK showing Abnormal swallowing mechanism with weak pharyngeal peristalsis and a large amount of piriform sinus residue. Is chewing small pieces of ice and trying to handle her secretions better today. Does admit to increasing weakness and fatigability upon repetitive motion which is consistent with myasthenia gravis. New bruising on her bilateral shins and axilla noted no worse today. 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 Plan: pyridostigmine and IV steroids started Plasmapheresis per renal/neurology-claims will get 5 doses every other day hence will be here at least until 12/27, now possibly until next saturday Thyroid is IV because of swallow issues-still nothing by mouth DTRs are +2 IV Pepcid since swallow issues and is nothing by mouth TPN tolerated - discussed considering surgical consultation and J-tube, they wish to think about it, will readdress daily with GI May need EMG of diaphragm in the future to assess her ability to maintain tidal volume if she does not continue to improve Discussed in detail with patient and mother, bedside. Vitals Vitals Vital Signs Date Time Temp Pulse Resp B/P (MAP) Pulse Ox O2 Delivery O2 Flow Rate FiO2 12/27/17 07:20 97.9 75 16 127/82 (97) 95 Room Air 97.9 Physical Exam General: Alert, Oriented X3, Cooperative, No acute distress Heart: Regular rate, Normal S1, Normal S2 Abdomen: Normal bowel sounds, Soft, No tenderness, No hepatosplenomegaly, No masses Extremities: No clubbing, No cyanosis Skin: No breakdown, No significant lesion, Other (lipoma at the nape) Labs LABS Laboratory Tests Test 12/26/17 12:09 12/26/17 17:10 12/27/17 05:50 Glucose (Fingerstick) 159 mg/dL (70-99) 216 mg/dL (70-99) Sodium Level 138 mmol/L (136-145) Potassium Level 4.6 mmol/L (3.5-5.1) Chloride Level 103 mmol/L (98-107) Carbon Dioxide Level 30 mmol/L (21-32) Anion Gap 5 (6-14) Blood Urea Nitrogen 19 mg/dL (7-20) Creatinine 0.5 mg/dL (0.6-1.0) Estimated GFR (Cockcroft-Gault) 152.9 BUN/Creatinine Ratio 38 (6-20) Glucose Level 241 mg/dL (70-99) Calcium Level 8.9 mg/dL (8.5-10.1) Total Bilirubin 0.4 mg/dL (0.2-1.0) Aspartate Amino Transf (AST/SGOT) 21 U/L (15-37) Alanine Aminotransferase (ALT/SGPT) 86 U/L (14-59) Alkaline Phosphatase 33 U/L (46-116) Total Protein 5.7 g/dL (6.4-8.2) Albumin 3.6 g/dL (3.4-5.0) Albumin/Globulin Ratio 1.7 (1.0-1.7) Assessment and Plan Assessmemt and Plan Problems Medical Problems: (1) Diplopia Status: Acute (2) Marijuana abuse Status: Acute (3) Myasthenia gravis with acute exacerbation Status: Acute (4) Neck muscle weakness Status: Acute (5) RUE weakness Status: Acute (6) Sinusitis Status: Acute Comment Review of Relevant I have reviewed the following items maliha (where applicable) has been applied. Labs Laboratory Tests Test 12/25/17 10:40 12/25/17 17:03 12/26/17 00:28 12/26/17 05:21 Hepatitis C IgG Antibody Nonreactive (Nonreactive) Glucose (Fingerstick) 191 mg/dL (70-99) 224 mg/dL (70-99) Sodium Level 141 mmol/L (136-145) Potassium Level 4.3 mmol/L (3.5-5.1) Chloride Level 105 mmol/L (98-107) Carbon Dioxide Level 31 mmol/L (21-32) Anion Gap 5 (6-14) Blood Urea Nitrogen 18 mg/dL (7-20) Creatinine 0.5 mg/dL (0.6-1.0) Estimated GFR (Cockcroft-Gault) 152.9 BUN/Creatinine Ratio 36 (6-20) Glucose Level 184 mg/dL (70-99) Calcium Level 8.6 mg/dL (8.5-10.1) Ionized Calcium 1.19 mmol/L (1.13-1.32) Phosphorus Level 3.4 mg/dL (2.6-4.7) Magnesium Level 2.3 mg/dL (1.8-2.4) Total Bilirubin 0.6 mg/dL (0.2-1.0) Aspartate Amino Transf (AST/SGOT) 19 U/L (15-37) Alanine Aminotransferase (ALT/SGPT) 83 U/L (14-59) Alkaline Phosphatase 30 U/L (46-116) Total Protein 5.5 g/dL (6.4-8.2) Albumin 3.7 g/dL (3.4-5.0) Albumin/Globulin Ratio 2.1 (1.0-1.7) Triglycerides Level 154 mg/dL (0-150) Test 12/26/17 12:09 12/26/17 17:10 12/27/17 05:50 Glucose (Fingerstick) 159 mg/dL (70-99) 216 mg/dL (70-99) Sodium Level 138 mmol/L (136-145) Potassium Level 4.6 mmol/L (3.5-5.1) Chloride Level 103 mmol/L (98-107) Carbon Dioxide Level 30 mmol/L (21-32) Anion Gap 5 (6-14) Blood Urea Nitrogen 19 mg/dL (7-20) Creatinine 0.5 mg/dL (0.6-1.0) Estimated GFR (Cockcroft-Gault) 152.9 BUN/Creatinine Ratio 38 (6-20) Glucose Level 241 mg/dL (70-99) Calcium Level 8.9 mg/dL (8.5-10.1) Total Bilirubin 0.4 mg/dL (0.2-1.0) Aspartate Amino Transf (AST/SGOT) 21 U/L (15-37) Alanine Aminotransferase (ALT/SGPT) 86 U/L (14-59) Alkaline Phosphatase 33 U/L (46-116) Total Protein 5.7 g/dL (6.4-8.2) Albumin 3.6 g/dL (3.4-5.0) Albumin/Globulin Ratio 1.7 (1.0-1.7) Laboratory Tests Test 12/26/17 12:09 12/26/17 17:10 12/27/17 05:50 Glucose (Fingerstick) 159 mg/dL (70-99) 216 mg/dL (70-99) Sodium Level 138 mmol/L (136-145) Potassium Level 4.6 mmol/L (3.5-5.1) Chloride Level 103 mmol/L (98-107) Carbon Dioxide Level 30 mmol/L (21-32) Anion Gap 5 (6-14) Blood Urea Nitrogen 19 mg/dL (7-20) Creatinine 0.5 mg/dL (0.6-1.0) Estimated GFR (Cockcroft-Gault) 152.9 BUN/Creatinine Ratio 38 (6-20) Glucose Level 241 mg/dL (70-99) Calcium Level 8.9 mg/dL (8.5-10.1) Total Bilirubin 0.4 mg/dL (0.2-1.0) Aspartate Amino Transf (AST/SGOT) 21 U/L (15-37) Alanine Aminotransferase (ALT/SGPT) 86 U/L (14-59) Alkaline Phosphatase 33 U/L (46-116) Total Protein 5.7 g/dL (6.4-8.2) Albumin 3.6 g/dL (3.4-5.0) Albumin/Globulin Ratio 1.7 (1.0-1.7) Medications Current Medications Meclizine HCl (Antivert) 25 mg 1X ONCE PO Last administered on 12/17/17at 20:00 ; Start 12/17/17 at 20:00; Stop 12/17/17 at 20:01; Status DC Sodium Chloride 1,000 ml @ 1,000 mls/hr 1X ONCE IV Last administered on at 20:35; Start 12/17/17 at 20:15; Stop 12/17/17 at 21:14; Status DC Ketorolac Tromethamine (Toradol 15mg Vial) 15 mg 1X ONCE IV Last administered on 12/17/17at 20:36; Start 12/17/17 at 20:15; Stop 12/17/17 at 20:16; Status DC Diphenhydramine HCl (Benadryl) 25 mg 1X ONCE PO Last administered on at 02:16; Start 12/18/17 at 02:15; Stop 12/18/17 at 02:18; Status DC Acetaminophen (Tylenol) 500 mg PRN Q6HRS PRN PO MILD PAIN / TEMP; Start at 09:00 Acetaminophen/ Codeine Phosphate (Tylenol #3) 1 tab PRN Q6HRS PRN PO PAIN; Start 12/18/17 at 09:00; Stop 12/18/17 at 12:08; Status DC Ibuprofen (Motrin) 600 mg PRN Q6HRS PRN PO INFLAMMATION; Start 12/18/17 at 09: 00; Stop 12/19/17 at 16:23; Status DC Ondansetron HCl (Zofran) 4 mg PRN Q6HRS PRN IV NAUSEA/VOMITING Last administered on 12/24/17at 18:03; Start 12/18/17 at 09:00 Ondansetron HCl (Zofran Odt) 4 mg PRN Q6HRS PRN PO NAUSEA/VOMITING; Start 12/18 at 09:00; Stop 12/18/17 at 12:08; Status DC Fluticasone Propionate (Flonase) 1 spray DAILY NS Last administered on at 09:53; Start 12/18/17 at 09:00 Acetaminophen/ Hydrocodone Bitart (Lortab 7.5-325/ 15ml Oral Solution) 15 ml PRN Q4HRS PRN PO MODERATE PAIN; Start 12/18/17 at 09:00; Stop 12/19/17 at 16:23 ; Status DC Non-Formulary Medication (Albuterol Sulfate (Proair Hfa Inhaler)) 1 puff PRN Q6HRS PRN INH SHORTNESS OF BREATH; Start 12/18/17 at 09:00; Status UNV Amoxicillin (Amoxil) 750 mg BID PO Last administered on 12/18/17at 21:02; Start 12/18/17 at 10:00; Stop 12/19/17 at 16:23; Status DC Levothyroxine Sodium (Synthroid) 25 mcg DAILY07 PO ; Start 12/18/17 at 10:30; Stop 12/18/17 at 12:08; Status DC Prednisone (Prednisone) 50 mg DAILY PO ; Start 12/18/17 at 10:00; Stop 12/18/17 at 12:08; Status DC Alprazolam (Xanax) 0.25 mg PRN Q8HRS PRN PO ANXIETY / AGITATION; Start at 09:00; Stop 12/19/17 at 08:14; Status DC Zolpidem Tartrate (Ambien) 5 mg PRN QHS PRN PO INSOMNIA; Start 12/18/17 at 09: 00; Stop 12/18/17 at 12:08; Status DC Cetirizine HCl (ZyrTEC) 10 mg DAILY PO ; Start 12/18/17 at 10:00; Stop 12/18/17 at 12:08; Status DC Non-Formulary Medication 1 ea 1X ONCE IV ; Start 12/18/17 at 09:00; Stop at 09:01; Status UNV Potassium Chloride/Dextrose/ Sod Cl 1,000 ml @ 80 mls/hr [id number] IV Last administered on 12/19/17at 10:00; Start 12/18/17 at 09:00; Stop 12/20/17 at 09:07 ; Status DC Albuterol Sulfate (Ventolin Neb Soln) 2.5 mg PRN Q6HRS PRN NEB SHORTNESS OF BREATH Last administered on 12/26/17at 19:41; Start 12/18/17 at 09:30 Iohexol (Omnipaque 300 Mg/ml) 75 ml 1X ONCE IV Last administered on 12/18/17at 10:31; Start 12/18/17 at 10:15; Stop 12/18/17 at 10:16; Status DC Info (CONTRAST GIVEN -- Rx MONITORING) 1 each PRN DAILY PRN MC SEE COMMENTS; Start 12/18/17 at 10:15; Stop 12/20/17 at 10:14; Status DC Levothyroxine Sodium 15 mcg/ Sodium Chloride 5 ml @ 100 mls/hr DAILY IVP Last administered on 12/20/17at 09:41; Start 12/18/17 at 12:30; Stop 12/20/17 at 11:44 ; Status DC Lorazepam (Ativan) 1 mg PRN Q4HRS PRN IV ANXIETY / AGITATION Last administered on 12/27/17at 05:51; Start 12/18/17 at 13:15 Alprazolam (Xanax) 0.25 mg PRN Q8HRS PRN NG ANXIETY / AGITATION Last administered on 12/19/17at 01:13; Start 12/18/17 at 13:15; Stop 12/19/17 at 16:23 ; Status DC Pyridostigmine Nisula (Mestinon) 60 mg BID NG Last administered on 12/18/17at 21:01; Start 12/18/17 at 13:00; Stop 12/19/17 at 16:23; Status DC Prednisone (Prednisone) 50 mg DAILY PO Last administered on 12/18/17at 16:03; Start 12/18/17 at 13:00; Stop 12/19/17 at 16:23; Status DC Famotidine (Pepcid) 20 mg QHS PO Last administered on 12/18/17at 21:01; Start at 21:00; Stop 12/19/17 at 16:23; Status DC Calcium Carbonate/ Glycine (Oscal) 500 mg TIDAFTMEAL PO ; Start 12/18/17 at 18: 00; Stop 12/19/17 at 16:23; Status DC Ergocalciferol (Vitamin D2) 50,000 unit MoTh PO ; Start 12/19/17 at 09:00; Stop 12/19/17 at 16:23; Status DC Lidocaine/Sodium Bicarbonate (Buffered Lidocaine 1%) 3 ml STK-MED ONCE .ROUTE ; Start 12/18/17 at 14:32; Stop 12/18/17 at 14:33; Status DC Heparin Sodium (Porcine) (Heparin Sodium) 10,000 unit STK-MED ONCE .ROUTE ; Start 12/18/17 at 14:32; Stop 12/18/17 at 14:33; Status DC Lidocaine/Sodium Bicarbonate (Buffered Lidocaine 1%) 3 ml 1X ONCE INJ Last administered on 12/18/17at 15:15; Start 12/18/17 at 15:15; Stop 12/18/17 at 15:16 ; Status DC Heparin Sodium (Porcine) (Heparin Sodium) 2,200 unit 1X ONCE INT CAT Last administered on 12/18/17at 15:15; Start 12/18/17 at 15:15; Stop 12/18/17 at 15:16 ; Status DC Scopolamine (Transderm-Scop) 1 patch 1X ONCE TD Last administered on at 21:41; Start 12/18/17 at 21:30; Stop 12/19/17 at 16:23; Status DC Albumin Human 1,500 ml @ 0 mls/hr 1X ONCE IV Last administered on 12/19/17at 11:38; Start 12/19/17 at 08:15; Stop 12/19/17 at 08:16; Status DC Heparin Sodium (Porcine) (Heparin Sodium) 10,000 unit STK-MED ONCE .ROUTE ; Start 12/19/17 at 08:40; Stop 12/19/17 at 08:41; Status DC Info (Tpn Per Pharmacy) 1 each PRN DAILY PRN MC SEE COMMENTS Last administered on 12/26/17at 17:33; Start 12/20/17 at 16:30 Pyridostigmine Nisula (Regonol) 2.5 mg Q12HR IV Last administered on 09:56; Start 12/19/17 at 21:00; Stop 12/26/17 at 15:52; Status DC Methylprednisolone Sodium Succinate (SOLU-Medrol 40MG VIAL) 40 mg Q12HR IV Last administered on 12/26/17at 20:10; Start 12/19/17 at 21:00 Famotidine (Pepcid Vial) 20 mg QHS IVP Last administered on 12/19/17at 21:33; Start 12/19/17 at 21:00; Stop 12/20/17 at 11:44; Status DC Morphine Sulfate (Morphine Sulfate) 2 mg PRN Q2HR PRN IV MODERATE TO SEVERE PAIN Last administered on 12/27/17at 05:51; Start 12/19/17 at 23:15 Amino Acids/ Glycerin/ Electrolytes 1,000 ml @ 80 mls/hr [id number] IV Last administered on 12/20/17at 09:57; Start 12/20/17 at 09:30; Stop 12/20/17 at 11:44 ; Status DC Alteplase, Recombinant (Cathflo) 2 mg 1X ONCE IV Last administered on at 12:37; Start 12/20/17 at 11:45; Stop 12/20/17 at 11:46; Status DC Cyclobenzaprine HCl (Flexeril) 5 mg QID PO Last administered on 12/21/17at 09:10 ; Start 12/20/17 at 17:00 Cyclobenzaprine HCl (Flexeril) 10 mg 1X ONCE PO ; Start 12/20/17 at 11:45; Stop 12/20/17 at 11:53; Status DC Levothyroxine Sodium (Synthroid) 25 mcg DAILY07 PO ; Start 12/21/17 at 07:00; Stop 12/21/17 at 07:00; Status DC Levothyroxine Sodium 12.5 mcg/ Sodium Chloride 5 ml @ 100 mls/hr DAILY IVP Last administered on 12/26/17at 09:57; Start 12/21/17 at 09:00 Sodium Chloride 90 meq/Potassium Chloride 50 meq/ Potassium Phosphate 13.6 mmol/ Magnesium Sulfate 5 meq/ Calcium Gluconate 5 meq/ Multivitamins 10 ml/Chromium/ Copper/Manganese/ Seleni/Zn 1 ml/ Total Parenteral Nutrition/Amino Acids/ Dextrose/ Fat Emulsion Intravenous 1,512 ml @ 63 mls/hr TPN CONT IV Last administered on 12/20/17at 20:58; Start 12/20/17 at 22:00; Stop 12/21/17 at 21:59 ; Status DC Albumin Human 1,200 ml @ 0 mls/hr 1X ONCE IV Last administered on 12/21/17at 10:40; Start 12/21/17 at 08:45; Stop 12/21/17 at 08:46; Status DC Heparin Sodium (Porcine) (Heparin Sodium) 10,000 unit STK-MED ONCE .ROUTE ; Start 12/21/17 at 08:50; Stop 12/21/17 at 08:51; Status DC Diphenhydramine HCl (Benadryl) 50 mg STK-MED ONCE .ROUTE ; Start 12/21/17 at 11: 46; Stop 12/21/17 at 11:47; Status DC Diphenhydramine HCl (Benadryl) 50 mg 1X ONCE IVP Last administered on at 11:59; Start 12/21/17 at 12:00; Stop 12/21/17 at 12:01; Status DC Sodium Chloride 90 meq/Potassium Chloride 50 meq/ Potassium Phosphate 13.6 mmol/ Magnesium Sulfate 5 meq/ Calcium Gluconate 5 meq/ Multivitamins 10 ml/Chromium/ Copper/Manganese/ Seleni/Zn 1 ml/ Total Parenteral Nutrition/Amino Acids/ Dextrose/ Fat Emulsion Intravenous 1,512 ml @ 63 mls/hr TPN CONT IV Last administered on 12/21/17at 22:00; Start 12/21/17 at 22:00; Stop 12/22/17 at 21:59 ; Status DC Sodium Chloride 90 meq/Potassium Chloride 50 meq/ Potassium Phosphate 13.6 mmol/ Magnesium Sulfate 5 meq/ Calcium Gluconate 5 meq/ Multivitamins 10 ml/Chromium/ Copper/Manganese/ Seleni/Zn 1 ml/ Total Parenteral Nutrition/Amino Acids/ Dextrose/ Fat Emulsion Intravenous 1,512 ml @ 63 mls/hr TPN CONT IV Last administered on 12/22/17at 21:26; Start 12/22/17 at 22:00; Stop 12/23/17 at 21:59 ; Status DC Famotidine (Pepcid Vial) 20 mg QHS IVP Last administered on 12/26/17at 20:13; Start 12/23/17 at 21:00 Sodium Chloride 90 meq/Potassium Chloride 50 meq/ Potassium Phosphate 13.6 mmol/ Magnesium Sulfate 5 meq/ Calcium Gluconate 5 meq/ Multivitamins 10 ml/Chromium/ Copper/Manganese/ Seleni/Zn 1 ml/ Total Parenteral Nutrition/Amino Acids/ Dextrose/ Fat Emulsion Intravenous 1,512 ml @ 63 mls/hr TPN CONT IV Last administered on 12/23/17at 21:10; Start 12/23/17 at 22:00; Stop 12/24/17 at 21:59 ; Status DC Diphenhydramine HCl (Benadryl) 50 mg 1X ONCE IVP Last administered on at 17:33; Start 12/23/17 at 12:00; Stop 12/23/17 at 12:23; Status DC Albumin Human 1,500 ml @ 125 mls/hr 1X ONCE IV Last administered on at 17:34; Start 12/23/17 at 12:30; Stop 12/24/17 at 00:29; Status DC Heparin Sodium (Porcine) (Heparin Sodium) 10,000 unit STK-MED ONCE .ROUTE ; Start 12/23/17 at 14:57; Stop 12/23/17 at 14:58; Status DC Oxycodone/ Acetaminophen (Percocet 5/325) 1 tab PRN Q6HRS PRN PO PAIN; Start 12/23/17 at 20:45; Status Cancel Sodium Chloride 90 meq/Potassium Chloride 50 meq/ Potassium Phosphate 13.6 mmol/ Magnesium Sulfate 5 meq/ Calcium Gluconate 5 meq/ Multivitamins 10 ml/Chromium/ Copper/Manganese/ Seleni/Zn 1 ml/ Total Parenteral Nutrition/Amino Acids/ Dextrose/ Fat Emulsion Intravenous 1,512 ml @ 63 mls/hr TPN CONT IV Last administered on 12/24/17at 21:11; Start 12/24/17 at 22:00; Stop 12/25/17 at 21:59 ; Status DC Calcium Gluconate 2000 mg/Dextrose 120 ml @ 220 mls/hr 1X ONCE IV Last administered on 12/25/17at 09:51; Start 12/25/17 at 10:00; Stop 12/25/17 at 10:32 ; Status DC Diphenhydramine HCl (Benadryl) 50 mg 1X ONCE IVP Last administered on at 14:16; Start 12/25/17 at 09:30; Stop 12/25/17 at 09:31; Status DC Heparin Sodium (Porcine) (Heparin Sodium) 3,000 unit 1X ONCE IV Last administered on 12/25/17at 09:15; Start 12/25/17 at 09:15; Stop 12/25/17 at 09:16 ; Status DC Albumin Human 1,500 ml @ 0 mls/hr 1X ONCE IV Last administered on 12/25/17at 14:19; Start 12/25/17 at 10:45; Stop 12/25/17 at 10:46; Status DC Albumin Human 200 ml @ 0 mls/hr 1X ONCE IV ; Start 12/25/17 at 10:45; Stop 12/25/17 at 10:46; Status DC Heparin Sodium (Porcine) (Heparin Sodium) 10,000 unit STK-MED ONCE .ROUTE ; Start 12/25/17 at 12:39; Stop 12/25/17 at 12:40; Status DC Insulin Human Lispro (HumaLOG) 0-5 UNITS TIDWMEALS SQ Last administered on 12/26at 17:43; Start 12/25/17 at 17:00 Dextrose (Dextrose 50%-Water Syringe) 12.5 gm PRN Q15MIN PRN IV SEE COMMENTS; Start 12/25/17 at 13:30 Sodium Chloride 90 meq/Potassium Chloride 50 meq/ Potassium Phosphate 13.6 mmol/ Magnesium Sulfate 5 meq/ Calcium Gluconate 5 meq/ Multivitamins 10 ml/Chromium/ Copper/Manganese/ Seleni/Zn 1 ml/ Total Parenteral Nutrition/Amino Acids/ Dextrose/ Fat Emulsion Intravenous 1,512 ml @ 63 mls/hr TPN CONT IV Last administered on 12/25/17at 21:42; Start 12/25/17 at 22:00; Stop 12/26/17 at 21:59 ; Status DC Barium Sulfate (Varibar Thin Liquid Apple) 148 gm 1X ONCE PO Last administered on 12/26/17at 13:57; Start 12/26/17 at 12:00; Stop 12/26/17 at 12:01 ; Status DC Sodium Chloride 90 meq/Potassium Chloride 50 meq/ Potassium Phosphate 13.6 mmol/ Magnesium Sulfate 5 meq/ Calcium Gluconate 5 meq/ Multivitamins 10 ml/Chromium/ Copper/Manganese/ Seleni/Zn 1 ml/ Total Parenteral Nutrition/Amino Acids/ Dextrose/ Fat Emulsion Intravenous 1,512 ml @ 63 mls/hr TPN CONT IV Last administered on 12/26/17at 21:37; Start 12/26/17 at 22:00; Stop 12/27/17 at 21:59 Vitamin A/Vitamin D (Vitamin A & D Ointment) 1 lila PRN Q1HR PRN TP SKIN PROTECTION Last administered on 12/26/17 17:42; Start 12/26/17 at 14:15 Pyridostigmine Nisula (Regonol) 2.5 mg Q8H IV Last administered on 12/27/17at 00:48; Start 12/26/17 at 17:00 Active Scripts Active Reported Amoxicillin 875 Mg Tablet 1 Tab PO BID Levothyroxine Sodium 25 Mcg Tablet 1 Tab PO DAILY Proair Hfa Inhaler (Albuterol Sulfate) 8.5 Gm Hfa.aer.ad 1 Puff INH PRN Q6HRS PRN [kaitlib fe] Hydrocodone-Apap 7.5-325/15 Soln (Hydrocodone Bit/Acetaminophen) 15 Ml Solution 15 Ml PO PRN Q4HRS PRN Prednisone 50 Mg Tablet 1 Tab PO DAILY Fluticasone Propionate Nasal [place] (Fluticasone Propionate) 16 Gm [place].susp 1 [place] NS DAILY [zoloft] [ativan] Vitals/I & O Vital Sign - Last 24 Hours 12/26/17 12/26/17 12/26/17 12/26/17 08:38 11:00 12:21 14:59 Temp 97.9 97.9 Pulse 75 Resp 16 19 B/P (MAP) 123/76 (92) Pulse Ox 99 99 O2 Delivery Room Air Room Air Room Air Room Air 12/26/17 12/26/17 12/26/17 12/26/17 19:42 19:44 20:00 20:12 Temp 97.6 97.6 Pulse 92 Resp 18 16 B/P (MAP) 133/84 (100) Pulse Ox 97 99 97 O2 Delivery Room Air Room Air Room Air Room Air 12/26/17 12/27/17 12/27/17 12/27/17 23:56 00:48 03:44 05:51 Temp 97.5 97.5 97.5 97.5 Pulse 79 69 Resp 18 18 16 16 B/P (MAP) 107/72 (84) 114/65 (81) Pulse Ox 98 98 96 96 O2 Delivery Room Air Room Air Room Air Room Air 12/27/17 12/27/17 06:21 07:20 Temp 97.9 97.9 Pulse 75 Resp 16 16 B/P (MAP) 127/82 (97) Pulse Ox 96 95 O2 Delivery Room Air Room Air Intake and Output 12/26/17 12/26/17 12/27/17 15:00 23:00 07:00 Intake Total 0 ml Balance 0 ml SINDY SANTILLAN MD Dec 27, 2017 08:05
--- NOTE | 2017-12-27 08:06 | PDOC ---
PROGRESS NOTES Assessment Problems Medical Problems: (1) Diplopia Status: Acute (2) Marijuana abuse Status: Acute (3) Myasthenia gravis with acute exacerbation Status: Acute (4) Neck muscle weakness Status: Acute (5) RUE weakness Status: Acute (6) Sinusitis Status: Acute Myasthenia gravis, on steroids and 4 plasmaphereses Myasthenia serology is positive Chest CT negative for thymoma Also has Eze's thyroiditis Also has anxiety disorder Also has elevated transaminases and positive Hepatitis B surface anybody Plan Speech therapy, PT, OT Needs PEG, place today? Defer to GI, I see they're waiting to see if she maintains weight, but isn't it more dangerous to keep TPN? I suspect she'll have dysphagia for at least a few weeks. Will discuss. Monitor negative inspiratory force Plasmapheresis QOD, now plan on continuing through 01/01 IV steroids Increased pyridostigmine Discussed with patient, mother Subjective slept well Objective Vital Signs Date Time Temp Pulse Resp B/P (MAP) Pulse Ox O2 Delivery O2 Flow Rate FiO2 12/27/17 07:20 97.9 75 16 127/82 (97) 95 Room Air 97.9 Intake and Output 12/27/17 07:00 Intake Total 0 ml Balance 0 ml Intake Oral 0 ml # Voids 4 PHYSICAL EXAM Alert. Oriented to time, place and person. PERRL. EOMI. CN: no focal findings. no diplopia. Voice is strong, but still somewhat hypernasal Muscle tone: normal. Muscle strength: 5/5, 5-/5 right arm, no longer has neck extension weakness DTR: 2+ Plantar reflex: Flexor Gait: not examined in bed. Sensory exam: no abnormal findings. No cerebellar signs elicited. Review of Relevant I have reviewed the following items maliha (where applicable) has been applied. Labs Laboratory Tests Test 12/25/17 10:40 12/25/17 17:03 12/26/17 00:28 12/26/17 05:21 Hepatitis C IgG Antibody Nonreactive (Nonreactive) Glucose (Fingerstick) 191 mg/dL (70-99) 224 mg/dL (70-99) Sodium Level 141 mmol/L (136-145) Potassium Level 4.3 mmol/L (3.5-5.1) Chloride Level 105 mmol/L (98-107) Carbon Dioxide Level 31 mmol/L (21-32) Anion Gap 5 (6-14) Blood Urea Nitrogen 18 mg/dL (7-20) Creatinine 0.5 mg/dL (0.6-1.0) Estimated GFR (Cockcroft-Gault) 152.9 BUN/Creatinine Ratio 36 (6-20) Glucose Level 184 mg/dL (70-99) Calcium Level 8.6 mg/dL (8.5-10.1) Ionized Calcium 1.19 mmol/L (1.13-1.32) Phosphorus Level 3.4 mg/dL (2.6-4.7) Magnesium Level 2.3 mg/dL (1.8-2.4) Total Bilirubin 0.6 mg/dL (0.2-1.0) Aspartate Amino Transf (AST/SGOT) 19 U/L (15-37) Alanine Aminotransferase (ALT/SGPT) 83 U/L (14-59) Alkaline Phosphatase 30 U/L (46-116) Total Protein 5.5 g/dL (6.4-8.2) Albumin 3.7 g/dL (3.4-5.0) Albumin/Globulin Ratio 2.1 (1.0-1.7) Triglycerides Level 154 mg/dL (0-150) Test 12/26/17 12:09 12/26/17 17:10 12/27/17 05:50 Glucose (Fingerstick) 159 mg/dL (70-99) 216 mg/dL (70-99) Sodium Level 138 mmol/L (136-145) Potassium Level 4.6 mmol/L (3.5-5.1) Chloride Level 103 mmol/L (98-107) Carbon Dioxide Level 30 mmol/L (21-32) Anion Gap 5 (6-14) Blood Urea Nitrogen 19 mg/dL (7-20) Creatinine 0.5 mg/dL (0.6-1.0) Estimated GFR (Cockcroft-Gault) 152.9 BUN/Creatinine Ratio 38 (6-20) Glucose Level 241 mg/dL (70-99) Calcium Level 8.9 mg/dL (8.5-10.1) Total Bilirubin 0.4 mg/dL (0.2-1.0) Aspartate Amino Transf (AST/SGOT) 21 U/L (15-37) Alanine Aminotransferase (ALT/SGPT) 86 U/L (14-59) Alkaline Phosphatase 33 U/L (46-116) Total Protein 5.7 g/dL (6.4-8.2) Albumin 3.6 g/dL (3.4-5.0) Albumin/Globulin Ratio 1.7 (1.0-1.7) Laboratory Tests Test 12/26/17 12:09 12/26/17 17:10 12/27/17 05:50 Glucose (Fingerstick) 159 mg/dL (70-99) 216 mg/dL (70-99) Sodium Level 138 mmol/L (136-145) Potassium Level 4.6 mmol/L (3.5-5.1) Chloride Level 103 mmol/L (98-107) Carbon Dioxide Level 30 mmol/L (21-32) Anion Gap 5 (6-14) Blood Urea Nitrogen 19 mg/dL (7-20) Creatinine 0.5 mg/dL (0.6-1.0) Estimated GFR (Cockcroft-Gault) 152.9 BUN/Creatinine Ratio 38 (6-20) Glucose Level 241 mg/dL (70-99) Calcium Level 8.9 mg/dL (8.5-10.1) Total Bilirubin 0.4 mg/dL (0.2-1.0) Aspartate Amino Transf (AST/SGOT) 21 U/L (15-37) Alanine Aminotransferase (ALT/SGPT) 86 U/L (14-59) Alkaline Phosphatase 33 U/L (46-116) Total Protein 5.7 g/dL (6.4-8.2) Albumin 3.6 g/dL (3.4-5.0) Albumin/Globulin Ratio 1.7 (1.0-1.7) Medications Current Medications Meclizine HCl (Antivert) 25 mg 1X ONCE PO Last administered on 12/17/17at 20:00 ; Start 12/17/17 at 20:00; Stop 12/17/17 at 20:01; Status DC Sodium Chloride 1,000 ml @ 1,000 mls/hr 1X ONCE IV Last administered on at 20:35; Start 12/17/17 at 20:15; Stop 12/17/17 at 21:14; Status DC Ketorolac Tromethamine (Toradol 15mg Vial) 15 mg 1X ONCE IV Last administered on 12/17/17at 20:36; Start 12/17/17 at 20:15; Stop 12/17/17 at 20:16; Status DC Diphenhydramine HCl (Benadryl) 25 mg 1X ONCE PO Last administered on at 02:16; Start 12/18/17 at 02:15; Stop 12/18/17 at 02:18; Status DC Acetaminophen (Tylenol) 500 mg PRN Q6HRS PRN PO MILD PAIN / TEMP; Start at 09:00 Acetaminophen/ Codeine Phosphate (Tylenol #3) 1 tab PRN Q6HRS PRN PO PAIN; Start 12/18/17 at 09:00; Stop 12/18/17 at 12:08; Status DC Ibuprofen (Motrin) 600 mg PRN Q6HRS PRN PO INFLAMMATION; Start 12/18/17 at 09: 00; Stop 12/19/17 at 16:23; Status DC Ondansetron HCl (Zofran) 4 mg PRN Q6HRS PRN IV NAUSEA/VOMITING Last administered on 12/24/17at 18:03; Start 12/18/17 at 09:00 Ondansetron HCl (Zofran Odt) 4 mg PRN Q6HRS PRN PO NAUSEA/VOMITING; Start 12/18 at 09:00; Stop 12/18/17 at 12:08; Status DC Fluticasone Propionate (Flonase) 1 spray DAILY NS Last administered on at 09:53; Start 12/18/17 at 09:00 Acetaminophen/ Hydrocodone Bitart (Lortab 7.5-325/ 15ml Oral Solution) 15 ml PRN Q4HRS PRN PO MODERATE PAIN; Start 12/18/17 at 09:00; Stop 12/19/17 at 16:23 ; Status DC Non-Formulary Medication (Albuterol Sulfate (Proair Hfa Inhaler)) 1 puff PRN Q6HRS PRN INH SHORTNESS OF BREATH; Start 12/18/17 at 09:00; Status UNV Amoxicillin (Amoxil) 750 mg BID PO Last administered on 12/18/17at 21:02; Start 12/18/17 at 10:00; Stop 12/19/17 at 16:23; Status DC Levothyroxine Sodium (Synthroid) 25 mcg DAILY07 PO ; Start 12/18/17 at 10:30; Stop 12/18/17 at 12:08; Status DC Prednisone (Prednisone) 50 mg DAILY PO ; Start 12/18/17 at 10:00; Stop 12/18/17 at 12:08; Status DC Alprazolam (Xanax) 0.25 mg PRN Q8HRS PRN PO ANXIETY / AGITATION; Start at 09:00; Stop 12/19/17 at 08:14; Status DC Zolpidem Tartrate (Ambien) 5 mg PRN QHS PRN PO INSOMNIA; Start 12/18/17 at 09: 00; Stop 12/18/17 at 12:08; Status DC Cetirizine HCl (ZyrTEC) 10 mg DAILY PO ; Start 12/18/17 at 10:00; Stop 12/18/17 at 12:08; Status DC Non-Formulary Medication 1 ea 1X ONCE IV ; Start 12/18/17 at 09:00; Stop at 09:01; Status UNV Potassium Chloride/Dextrose/ Sod Cl 1,000 ml @ 80 mls/hr [id number] IV Last administered on 12/19/17at 10:00; Start 12/18/17 at 09:00; Stop 12/20/17 at 09:07 ; Status DC Albuterol Sulfate (Ventolin Neb Soln) 2.5 mg PRN Q6HRS PRN NEB SHORTNESS OF BREATH Last administered on 12/26/17at 19:41; Start 12/18/17 at 09:30 Iohexol (Omnipaque 300 Mg/ml) 75 ml 1X ONCE IV Last administered on 12/18/17at 10:31; Start 12/18/17 at 10:15; Stop 12/18/17 at 10:16; Status DC Info (CONTRAST GIVEN -- Rx MONITORING) 1 each PRN DAILY PRN MC SEE COMMENTS; Start 12/18/17 at 10:15; Stop 12/20/17 at 10:14; Status DC Levothyroxine Sodium 15 mcg/ Sodium Chloride 5 ml @ 100 mls/hr DAILY IVP Last administered on 12/20/17at 09:41; Start 12/18/17 at 12:30; Stop 12/20/17 at 11:44 ; Status DC Lorazepam (Ativan) 1 mg PRN Q4HRS PRN IV ANXIETY / AGITATION Last administered on 12/27/17at 05:51; Start 12/18/17 at 13:15 Alprazolam (Xanax) 0.25 mg PRN Q8HRS PRN NG ANXIETY / AGITATION Last administered on 12/19/17at 01:13; Start 12/18/17 at 13:15; Stop 12/19/17 at 16:23 ; Status DC Pyridostigmine Herman (Mestinon) 60 mg BID NG Last administered on 12/18/17at 21:01; Start 12/18/17 at 13:00; Stop 12/19/17 at 16:23; Status DC Prednisone (Prednisone) 50 mg DAILY PO Last administered on 12/18/17at 16:03; Start 12/18/17 at 13:00; Stop 12/19/17 at 16:23; Status DC Famotidine (Pepcid) 20 mg QHS PO Last administered on 12/18/17at 21:01; Start at 21:00; Stop 12/19/17 at 16:23; Status DC Calcium Carbonate/ Glycine (Oscal) 500 mg TIDAFTMEAL PO ; Start 12/18/17 at 18: 00; Stop 12/19/17 at 16:23; Status DC Ergocalciferol (Vitamin D2) 50,000 unit MoTh PO ; Start 12/19/17 at 09:00; Stop 12/19/17 at 16:23; Status DC Lidocaine/Sodium Bicarbonate (Buffered Lidocaine 1%) 3 ml STK-MED ONCE .ROUTE ; Start 12/18/17 at 14:32; Stop 12/18/17 at 14:33; Status DC Heparin Sodium (Porcine) (Heparin Sodium) 10,000 unit STK-MED ONCE .ROUTE ; Start 12/18/17 at 14:32; Stop 12/18/17 at 14:33; Status DC Lidocaine/Sodium Bicarbonate (Buffered Lidocaine 1%) 3 ml 1X ONCE INJ Last administered on 12/18/17at 15:15; Start 12/18/17 at 15:15; Stop 12/18/17 at 15:16 ; Status DC Heparin Sodium (Porcine) (Heparin Sodium) 2,200 unit 1X ONCE INT CAT Last administered on 12/18/17at 15:15; Start 12/18/17 at 15:15; Stop 12/18/17 at 15:16 ; Status DC Scopolamine (Transderm-Scop) 1 patch 1X ONCE TD Last administered on at 21:41; Start 12/18/17 at 21:30; Stop 12/19/17 at 16:23; Status DC Albumin Human 1,500 ml @ 0 mls/hr 1X ONCE IV Last administered on 12/19/17at 11:38; Start 12/19/17 at 08:15; Stop 12/19/17 at 08:16; Status DC Heparin Sodium (Porcine) (Heparin Sodium) 10,000 unit STK-MED ONCE .ROUTE ; Start 12/19/17 at 08:40; Stop 12/19/17 at 08:41; Status DC Info (Tpn Per Pharmacy) 1 each PRN DAILY PRN MC SEE COMMENTS Last administered on 12/26/17at 17:33; Start 12/20/17 at 16:30 Pyridostigmine Herman (Regonol) 2.5 mg Q12HR IV Last administered on 09:56; Start 12/19/17 at 21:00; Stop 12/26/17 at 15:52; Status DC Methylprednisolone Sodium Succinate (SOLU-Medrol 40MG VIAL) 40 mg Q12HR IV Last administered on 12/26/17at 20:10; Start 12/19/17 at 21:00 Famotidine (Pepcid Vial) 20 mg QHS IVP Last administered on 12/19/17at 21:33; Start 12/19/17 at 21:00; Stop 12/20/17 at 11:44; Status DC Morphine Sulfate (Morphine Sulfate) 2 mg PRN Q2HR PRN IV MODERATE TO SEVERE PAIN Last administered on 12/27/17at 05:51; Start 12/19/17 at 23:15 Amino Acids/ Glycerin/ Electrolytes 1,000 ml @ 80 mls/hr [id number] IV Last administered on 12/20/17at 09:57; Start 12/20/17 at 09:30; Stop 12/20/17 at 11:44 ; Status DC Alteplase, Recombinant (Cathflo) 2 mg 1X ONCE IV Last administered on at 12:37; Start 12/20/17 at 11:45; Stop 12/20/17 at 11:46; Status DC Cyclobenzaprine HCl (Flexeril) 5 mg QID PO Last administered on 12/21/17at 09:10 ; Start 12/20/17 at 17:00 Cyclobenzaprine HCl (Flexeril) 10 mg 1X ONCE PO ; Start 12/20/17 at 11:45; Stop 12/20/17 at 11:53; Status DC Levothyroxine Sodium (Synthroid) 25 mcg DAILY07 PO ; Start 12/21/17 at 07:00; Stop 12/21/17 at 07:00; Status DC Levothyroxine Sodium 12.5 mcg/ Sodium Chloride 5 ml @ 100 mls/hr DAILY IVP Last administered on 12/26/17at 09:57; Start 12/21/17 at 09:00 Sodium Chloride 90 meq/Potassium Chloride 50 meq/ Potassium Phosphate 13.6 mmol/ Magnesium Sulfate 5 meq/ Calcium Gluconate 5 meq/ Multivitamins 10 ml/Chromium/ Copper/Manganese/ Seleni/Zn 1 ml/ Total Parenteral Nutrition/Amino Acids/ Dextrose/ Fat Emulsion Intravenous 1,512 ml @ 63 mls/hr TPN CONT IV Last administered on 12/20/17at 20:58; Start 12/20/17 at 22:00; Stop 12/21/17 at 21:59 ; Status DC Albumin Human 1,200 ml @ 0 mls/hr 1X ONCE IV Last administered on 12/21/17at 10:40; Start 12/21/17 at 08:45; Stop 12/21/17 at 08:46; Status DC Heparin Sodium (Porcine) (Heparin Sodium) 10,000 unit STK-MED ONCE .ROUTE ; Start 12/21/17 at 08:50; Stop 12/21/17 at 08:51; Status DC Diphenhydramine HCl (Benadryl) 50 mg STK-MED ONCE .ROUTE ; Start 12/21/17 at 11: 46; Stop 12/21/17 at 11:47; Status DC Diphenhydramine HCl (Benadryl) 50 mg 1X ONCE IVP Last administered on at 11:59; Start 12/21/17 at 12:00; Stop 12/21/17 at 12:01; Status DC Sodium Chloride 90 meq/Potassium Chloride 50 meq/ Potassium Phosphate 13.6 mmol/ Magnesium Sulfate 5 meq/ Calcium Gluconate 5 meq/ Multivitamins 10 ml/Chromium/ Copper/Manganese/ Seleni/Zn 1 ml/ Total Parenteral Nutrition/Amino Acids/ Dextrose/ Fat Emulsion Intravenous 1,512 ml @ 63 mls/hr TPN CONT IV Last administered on 12/21/17at 22:00; Start 12/21/17 at 22:00; Stop 12/22/17 at 21:59 ; Status DC Sodium Chloride 90 meq/Potassium Chloride 50 meq/ Potassium Phosphate 13.6 mmol/ Magnesium Sulfate 5 meq/ Calcium Gluconate 5 meq/ Multivitamins 10 ml/Chromium/ Copper/Manganese/ Seleni/Zn 1 ml/ Total Parenteral Nutrition/Amino Acids/ Dextrose/ Fat Emulsion Intravenous 1,512 ml @ 63 mls/hr TPN CONT IV Last administered on 12/22/17at 21:26; Start 12/22/17 at 22:00; Stop 12/23/17 at 21:59 ; Status DC Famotidine (Pepcid Vial) 20 mg QHS IVP Last administered on 12/26/17at 20:13; Start 12/23/17 at 21:00 Sodium Chloride 90 meq/Potassium Chloride 50 meq/ Potassium Phosphate 13.6 mmol/ Magnesium Sulfate 5 meq/ Calcium Gluconate 5 meq/ Multivitamins 10 ml/Chromium/ Copper/Manganese/ Seleni/Zn 1 ml/ Total Parenteral Nutrition/Amino Acids/ Dextrose/ Fat Emulsion Intravenous 1,512 ml @ 63 mls/hr TPN CONT IV Last administered on 12/23/17at 21:10; Start 12/23/17 at 22:00; Stop 12/24/17 at 21:59 ; Status DC Diphenhydramine HCl (Benadryl) 50 mg 1X ONCE IVP Last administered on at 17:33; Start 12/23/17 at 12:00; Stop 12/23/17 at 12:23; Status DC Albumin Human 1,500 ml @ 125 mls/hr 1X ONCE IV Last administered on at 17:34; Start 12/23/17 at 12:30; Stop 12/24/17 at 00:29; Status DC Heparin Sodium (Porcine) (Heparin Sodium) 10,000 unit [employer]-MED ONCE .ROUTE ; Start 12/23/17 at 14:57; Stop 12/23/17 at 14:58; Status DC Oxycodone/ Acetaminophen (Percocet 5/325) 1 tab PRN Q6HRS PRN PO PAIN; Start 12/23/17 at 20:45; Status Cancel Sodium Chloride 90 meq/Potassium Chloride 50 meq/ Potassium Phosphate 13.6 mmol/ Magnesium Sulfate 5 meq/ Calcium Gluconate 5 meq/ Multivitamins 10 ml/Chromium/ Copper/Manganese/ Seleni/Zn 1 ml/ Total Parenteral Nutrition/Amino Acids/ Dextrose/ Fat Emulsion Intravenous 1,512 ml @ 63 mls/hr TPN CONT IV Last administered on 12/24/17at 21:11; Start 12/24/17 at 22:00; Stop 12/25/17 at 21:59 ; Status DC Calcium Gluconate 2000 mg/Dextrose 120 ml @ 220 mls/hr 1X ONCE IV Last administered on 12/25/17at 09:51; Start 12/25/17 at 10:00; Stop 12/25/17 at 10:32 ; Status DC Diphenhydramine HCl (Benadryl) 50 mg 1X ONCE IVP Last administered on at 14:16; Start 12/25/17 at 09:30; Stop 12/25/17 at 09:31; Status DC Heparin Sodium (Porcine) (Heparin Sodium) 3,000 unit 1X ONCE IV Last administered on 12/25/17at 09:15; Start 12/25/17 at 09:15; Stop 12/25/17 at 09:16 ; Status DC Albumin Human 1,500 ml @ 0 mls/hr 1X ONCE IV Last administered on 12/25/17at 14:19; Start 12/25/17 at 10:45; Stop 12/25/17 at 10:46; Status DC Albumin Human 200 ml @ 0 mls/hr 1X ONCE IV ; Start 12/25/17 at 10:45; Stop 12/25/17 at 10:46; Status DC Heparin Sodium (Porcine) (Heparin Sodium) 10,000 unit STK-MED ONCE .ROUTE ; Start 12/25/17 at 12:39; Stop 12/25/17 at 12:40; Status DC Insulin Human Lispro (HumaLOG) 0-5 UNITS TIDWMEALS SQ Last administered on 12/26at 17:43; Start 12/25/17 at 17:00 Dextrose (Dextrose 50%-Water Syringe) 12.5 gm PRN Q15MIN PRN IV SEE COMMENTS; Start 12/25/17 at 13:30 Sodium Chloride 90 meq/Potassium Chloride 50 meq/ Potassium Phosphate 13.6 mmol/ Magnesium Sulfate 5 meq/ Calcium Gluconate 5 meq/ Multivitamins 10 ml/Chromium/ Copper/Manganese/ Seleni/Zn 1 ml/ Total Parenteral Nutrition/Amino Acids/ Dextrose/ Fat Emulsion Intravenous 1,512 ml @ 63 mls/hr TPN CONT IV Last administered on 12/25/17at 21:42; Start 12/25/17 at 22:00; Stop 12/26/17 at 21:59 ; Status DC Barium Sulfate (Varibar Thin Liquid Apple) 148 gm 1X ONCE PO Last administered on 12/26/17at 13:57; Start 12/26/17 at 12:00; Stop 12/26/17 at 12:01 ; Status DC Sodium Chloride 90 meq/Potassium Chloride 50 meq/ Potassium Phosphate 13.6 mmol/ Magnesium Sulfate 5 meq/ Calcium Gluconate 5 meq/ Multivitamins 10 ml/Chromium/ Copper/Manganese/ Seleni/Zn 1 ml/ Total Parenteral Nutrition/Amino Acids/ Dextrose/ Fat Emulsion Intravenous 1,512 ml @ 63 mls/hr TPN CONT IV Last administered on 12/26/17at 21:37; Start 12/26/17 at 22:00; Stop 12/27/17 at 21:59 Vitamin A/Vitamin D (Vitamin A & D Ointment) 1 lila PRN Q1HR PRN TP SKIN PROTECTION Last administered on 12/26/17at 17:42; Start 12/26/17 at 14:15 Pyridostigmine Herman (Regonol) 2.5 mg Q8H IV Last administered on 12/27/17at 00:48; Start 12/26/17 at 17:00 Active Scripts Active Reported Amoxicillin 875 Mg Tablet 1 Tab PO BID Levothyroxine Sodium 25 Mcg Tablet 1 Tab PO DAILY Proair Hfa Inhaler (Albuterol Sulfate) 8.5 Gm Hfa.aer.ad 1 Puff INH PRN Q6HRS PRN [kaitlib fe] Hydrocodone-Apap 7.5-325/15 Soln (Hydrocodone Bit/Acetaminophen) 15 Ml Solution 15 Ml PO PRN Q4HRS PRN Prednisone 50 Mg Tablet 1 Tab PO DAILY Fluticasone Propionate Nasal [place] (Fluticasone Propionate) 16 Gm [place].susp 1 [place] NS DAILY [zoloft] [ativan] Vitals/I & O Vital Sign - Last 24 Hours 12/26/17 12/26/17 12/26/17 12/26/17 08:00 08:38 11:00 12:21 Temp 97.9 97.9 Pulse 75 Resp 16 B/P (MAP) 123/76 (92) Pulse Ox 99 99 O2 Delivery Room Air Room Air Room Air Room Air 12/26/17 12/26/17 12/26/17 12/26/17 14:59 19:42 19:44 20:00 Temp 97.6 97.6 Pulse 92 Resp 19 18 B/P (MAP) 133/84 (100) Pulse Ox 97 99 O2 Delivery Room Air Room Air Room Air Room Air 12/26/17 12/26/17 12/27/17 12/27/17 20:12 23:56 00:48 03:44 Temp 97.5 97.5 97.5 97.5 Pulse 79 69 Resp 16 18 18 16 B/P (MAP) 107/72 (84) 114/65 (81) Pulse Ox 97 98 98 96 O2 Delivery Room Air Room Air Room Air Room Air 12/27/17 12/27/17 12/27/17 05:51 06:21 07:20 Temp 97.9 97.9 Pulse 75 Resp 16 16 16 B/P (MAP) 127/82 (97) Pulse Ox 96 96 95 O2 Delivery Room Air Room Air Room Air Intake and Output 12/26/17 12/26/17 12/27/17 15:00 23:00 07:00 Intake Total 0 ml Balance 0 ml GAURAV BARONE MD Dec 27, 2017 08:06
[2017-12-27] MEDS: CYCLOBENZAPRINE 10 MG TABLET. PO SCH ×4 (08:07→21:00)
[2017-12-27] MEDS: methylPREDNISolone SOD SUCC PF 40 MG/ML VIAL. IV SCH ×2 (08:13→21:40)
[2017-12-27] MEDS: FLUTICASONE 50MCG/NASAL SPRAY 16GM BOTTLE. NS SCH (08:13)
[2017-12-27] MEDS: LEVOTHYROXINE SODIUM IVP SCH (08:14)
[2017-12-27] MEDS: NORMAL SALINE IVP SCH (08:14)
[2017-12-27] MEDS: ONDANSETRON PF 4 MG/2 ML VIAL. IV PRN ×2 (08:25→14:48)
--- NOTE | 2017-12-27 11:03 | PDOC ---
SUBJECTIVE ROS Stable, TPE today OBJECTIVE Vital Signs Vital Signs Date Time Temp Pulse Resp B/P (MAP) Pulse Ox O2 Delivery O2 Flow Rate FiO2 12/27/17 07:20 97.9 75 16 127/82 (97) 95 Room Air 97.9 I & 0 Intake and Output 12/27/17 07:01 Intake Total 0 ml Balance 0 ml Intake Oral 0 ml # Voids 4 PHYSICAL EXAM Physical Exam Gen-- NAD HEENT- OM moist Neuro-- as per neurology Lungs CTA Bilat CV RRR Abdomen -Soft , NT DIAGNOSIS/ASSESSMENT Assessment & Plan Myasthenia gravis- on steroids and 5 plasmaphereses today continue as Ordered As per neuro, Myasthenia serology is positive, Plasmapheresis QOD, now plan on continuing through 01/[address] negative for thymoma Hypocalcemia- replaced on Sat Normal ca today Decreased Fibrinogen- FFP with TPE Eze's thyroiditis Anxiety disorder COMMENT/RELEVANT DATA Meds Current Medications Medications (Trade) Dose Ordered Sig/Guido Start Time Stop Time Status Last Admin Dose Admin Acetaminophen (Tylenol) 500 mg PRN Q6HRS PRN 12/18/17 09:00 Acetaminophen/ Codeine Phosphate (Tylenol #3) 1 tab PRN Q6HRS PRN 12/18/17 09:00 12/18/17 12:08 DC Acetaminophen/ Hydrocodone Bitart (Lortab 7.5-325/ 15ml Oral Solution) 15 ml PRN Q4HRS PRN 12/18/17 09:00 12/19/17 16:23 DC Albumin Human 200 ml @ 0 mls/hr 1X ONCE 12/25/17 10:45 12/25/17 10:46 DC Albuterol Sulfate (Ventolin Neb Soln) 2.5 mg PRN Q6HRS PRN 12/18/17 09:30 12/26/17 19:41 2.5 MG Alprazolam (Xanax) 0.25 mg PRN Q8HRS PRN 12/18/17 13:15 12/19/17 16:23 DC 12/19/17 01:13 0.25 MG Alteplase, Recombinant (Cathflo) 2 mg 1X ONCE 12/20/17 11:45 12/20/17 11:46 DC 12/20/17 12:37 2 MG Amino Acids/ Glycerin/ Electrolytes 1,000 ml @ 80 mls/hr [id number] 12/20/17 09:30 12/20/17 11:44 DC 12/20/17 09:57 80 MLS/HR Amoxicillin (Amoxil) 750 mg BID 12/18/17 10:00 12/19/17 16:23 DC 12/18/17 21:02 750 MG Barium Sulfate (Varibar Thin Liquid Apple) 148 gm 1X ONCE 12/26/17 12:00 12/26/17 12:01 DC 12/26/17 13:57 148 GM Calcium Carbonate/ Glycine (Oscal) 500 mg [id number] 12/18/17 18:00 12/19/17 16:23 DC Calcium Gluconate 2000 mg/Dextrose 120 ml @ 220 mls/hr 1X ONCE 12/25/17 10:00 12/25/17 10:32 DC 12/25/17 09:51 220 MLS/HR Cetirizine HCl (ZyrTEC) 10 mg DAILY 12/18/17 10:00 12/18/17 12:08 DC Cyclobenzaprine HCl (Flexeril) 10 mg 1X ONCE 12/20/17 11:45 12/20/17 11:53 DC Dextrose (Dextrose 50%-Water Syringe) 12.5 gm PRN Q15MIN PRN 12/25/17 13:30 Diphenhydramine HCl (Benadryl) 50 mg 1X ONCE 12/25/17 09:30 12/25/17 09:31 DC 12/25/17 14:16 50 MG Ergocalciferol (Vitamin D2) 50,000 unit MoTh 12/19/17 09:00 12/19/17 16:23 DC Famotidine (Pepcid Vial) 20 mg QHS 12/23/17 21:00 12/26/17 20:13 20 MG Famotidine (Pepcid) 20 mg QHS 12/18/17 21:00 12/19/17 16:23 DC 12/18/17 21:01 20 MG Fluticasone Propionate (Flonase) 1 spray DAILY 12/18/17 09:00 12/27/17 08:13 1 SPRAY Heparin Sodium (Porcine) (Heparin Sodium) 10,000 unit STK-MED ONCE 12/25/17 12:39 12/25/17 12:40 DC Ibuprofen (Motrin) 600 mg PRN Q6HRS PRN 12/18/17 09:00 12/19/17 16:23 DC Info (CONTRAST GIVEN -- Rx MONITORING) 1 each PRN DAILY PRN 12/18/17 10:15 12/20/17 10:14 DC Info (Tpn Per Pharmacy) 1 each PRN DAILY PRN 12/20/17 16:30 12/26/17 17:33 1 EACH Insulin Human Lispro (HumaLOG) 0-5 UNITS TIDWMEALS 12/25/17 17:00 12/26/17 17:43 3 UNITS Iohexol (Omnipaque 300 Mg/ml) 75 ml 1X ONCE 12/18/17 10:15 12/18/17 10:16 DC 12/18/17 10:31 75 ML Ketorolac Tromethamine (Toradol 15mg Vial) 15 mg 1X ONCE 12/17/17 20:15 12/17/17 20:16 DC 12/17/17 20:36 15 MG Levothyroxine Sodium (Synthroid) 25 mcg DAILY07 12/21/17 07:00 12/21/17 07:00 DC Levothyroxine Sodium 12.5 mcg/ Sodium Chloride 5 ml @ 100 mls/hr DAILY 12/21/17 09:00 12/27/17 08:14 100 MLS/HR Levothyroxine Sodium 15 mcg/ Sodium Chloride 5 ml @ 100 mls/hr DAILY 12/18/17 12:30 12/20/17 11:44 DC 12/20/17 09:41 100 MLS/HR Lidocaine/Sodium Bicarbonate (Buffered Lidocaine 1%) 3 ml 1X ONCE 12/18/17 15:15 12/18/17 15:16 DC 12/18/17 15:15 4 ML Lorazepam (Ativan) 1 mg PRN Q4HRS PRN 12/18/17 13:15 12/27/17 05:51 1 MG Meclizine HCl (Antivert) 25 mg 1X ONCE 12/17/17 20:00 12/17/17 20:01 DC 12/17/17 20:00 25 MG Methylprednisolone Sodium Succinate (SOLU-Medrol 40MG VIAL) 40 mg Q12HR 12/19/17 21:00 12/27/17 08:13 40 MG Morphine Sulfate (Morphine Sulfate) 2 mg PRN Q2HR PRN 12/19/17 23:15 12/27/17 08:14 2 MG Non-Formulary Medication 1 ea 1X ONCE 12/18/17 09:00 12/18/17 09:01 UNV Non-Formulary Medication (Albuterol Sulfate (Proair Hfa Inhaler)) 1 puff PRN Q6HRS PRN 12/18/17 09:00 UNV Ondansetron HCl (Zofran Odt) 4 mg PRN Q6HRS PRN 12/18/17 09:00 12/18/17 12:08 DC Ondansetron HCl (Zofran) 4 mg PRN Q6HRS PRN 12/18/17 09:00 12/27/17 08:25 4 MG Oxycodone/ Acetaminophen (Percocet 5/325) 1 tab PRN Q6HRS PRN 12/23/17 20:45 Cancel Potassium Chloride/Dextrose/ Sod Cl 1,000 ml @ 80 mls/hr [id number] 12/18/17 09:00 12/20/17 09:07 DC 12/19/17 10:00 80 MLS/HR Prednisone (Prednisone) 50 mg DAILY 12/18/17 13:00 12/19/17 16:23 DC 12/18/17 16:03 50 MG Pyridostigmine [place] (Mestinon) 60 mg BID 12/18/17 13:00 12/19/17 16:23 DC 12/18/17 21:01 60 MG Pyridostigmine [place] (Regonol) 2.5 mg Q8H 12/26/17 17:00 12/27/17 08:14 2.5 MG Scopolamine (Transderm-Scop) 1 patch 1X ONCE 12/18/17 21:30 12/19/17 16:23 DC 12/18/17 21:41 1 PATCH Sodium Chloride 90 meq/Potassium Chloride 50 meq/ Potassium Phosphate 13.6 mmol/Magnesium Sulfate 5 meq/ Calcium Gluconate 5 meq/ Multivitamins 10 ml/Chromium/ Copper/Manganese/ Seleni/Zn 1 ml/ Total Parenteral Nutrition/Amino Acids/Dextrose/ Fat Emulsion Intravenous 1,512 ml @ 63 mls/hr TPN CONT 12/26/17 22:00 12/27/17 21:59 12/26/17 21:37 63 MLS/HR Vitamin A/Vitamin D (Vitamin A & D Ointment) 1 lila PRN Q1HR PRN 12/26/17 14:15 12/26/17 17:42 1 LILA Zolpidem Tartrate (Ambien) 5 mg PRN QHS PRN 12/18/17 09:00 12/18/17 12:08 DC Lab Laboratory Tests Test 12/26/17 12:09 12/26/17 17:10 12/27/17 05:50 Glucose (Fingerstick) 159 mg/dL (70-99) 216 mg/dL (70-99) Sodium Level 138 mmol/L (136-145) Potassium Level 4.6 mmol/L (3.5-5.1) Chloride Level 103 mmol/L (98-107) Carbon Dioxide Level 30 mmol/L (21-32) Anion Gap 5 (6-14) Blood Urea Nitrogen 19 mg/dL (7-20) Creatinine 0.5 mg/dL (0.6-1.0) Estimated GFR (Cockcroft-Gault) 152.9 BUN/Creatinine Ratio 38 (6-20) Glucose Level 241 mg/dL (70-99) Calcium Level 8.9 mg/dL (8.5-10.1) Total Bilirubin 0.4 mg/dL (0.2-1.0) Aspartate Amino Transf (AST/SGOT) 21 U/L (15-37) Alanine Aminotransferase (ALT/SGPT) 86 U/L (14-59) Alkaline Phosphatase 33 U/L (46-116) Total Protein 5.7 g/dL (6.4-8.2) Albumin 3.6 g/dL (3.4-5.0) Albumin/Globulin Ratio 1.7 (1.0-1.7) Results All relevant outside records, renal labs, imaging studies, telemetry/EKG's were reviewed. THERESA TOLBERT MD Dec 27, 2017 11:03
--- NOTE | 2017-12-27 11:09 | PDOC ---
Subjective: Subjective: Says was told her swallowing was not as weak as expected, has been trying some ice chips now and then. Still feels head and neck heaviness. D/w mother - she would like to continue observation until next week before proceeding w/ PEG. Objective: Objective: Reviewed neuro note - concern for long-term use of TPN. Vital Signs: Vital Signs Date Time Temp Pulse Resp B/P (MAP) Pulse Ox O2 Delivery O2 Flow Rate FiO2 12/27/17 07:20 97.9 75 16 127/82 (97) 95 Room Air 97.9 Labs: Laboratory Tests Test 12/26/17 12:09 12/26/17 17:10 12/27/17 05:50 Glucose (Fingerstick) 159 mg/dL 216 mg/dL Sodium Level 138 mmol/L Potassium Level 4.6 mmol/L Chloride Level 103 mmol/L Carbon Dioxide Level 30 mmol/L Anion Gap 5 Blood Urea Nitrogen 19 mg/dL Creatinine 0.5 mg/dL Estimated GFR (Cockcroft-Gault) 152.9 BUN/Creatinine Ratio 38 Glucose Level 241 mg/dL Calcium Level 8.9 mg/dL Total Bilirubin 0.4 mg/dL Aspartate Amino Transf (AST/SGOT) 21 U/L Alanine Aminotransferase (ALT/SGPT) 86 U/L Alkaline Phosphatase 33 U/L Total Protein 5.7 g/dL Albumin 3.6 g/dL Albumin/Globulin Ratio 1.7 Imaging: Videoswallow IMPRESSION: Abnormal swallowing mechanism with weak pharyngeal peristalsis and a large amount of piriform sinus residue. PE: GEN: NAD LUNGS: CTAB HEART: RRR ABD: S/ND/NT NEURO/PSYCH: A & O 3, drowsy - voice weaker today A/P: Myasthenia gravis w/ dysphagia -- Family prefers continued observation before final decision re: PEG placement. OFELIA QIUNN Dec 27, 2017 11:09
[2017-12-27] MEDS ORDERED: CALCIUM GLUCONATE 2,000 MG in IV DEXTROSE 5% 100ML 100 ML IV ONE (12:30)
[2017-12-27 13:03] LABS: HEMATOCRIT 39.6 % (36.0-47.0); HEMOGLOBIN 13.4 g/dL (12.0-15.5); RED BLOOD COUNT 4.64 x10^6/uL (3.50-5.40); RED CELL DISTRIBUTION WIDTH 12.5 % (11.5-14.5); WHITE BLOOD COUNT 10.6 x10^3/uL (4.0-11.0)
[2017-12-27] MEDS: TPN PER PHARMACY MC PRN (13:11)
[2017-12-27] MEDS ORDERED: diphenhydrAMINE 50 MG/ML VIAL IVP ONE (14:30)
[2017-12-27] MEDS ORDERED: IV NORMAL SALINE 1000ML BAG 1,000 ML IV ONE (14:30)
[2017-12-27] MEDS ORDERED: ALBUMIN HUMAN 5% 1,500 ML IV ONE (15:00)
[2017-12-27] MEDS: ALBUTEROL SULFATE 2.5 MG/3 ML NEBU. NEB PRN (19:26)
[2017-12-27] MEDS: FAMOTIDINE 20 MG/2 ML VIAL IVP SCH (21:40)
[2017-12-27] MEDS ORDERED: AMINO ACIDS IV SCH ×10 (22:00)
[2017-12-27] MEDS ORDERED: TOTAL PARENTERAL NUTRITION IV SCH ×10 (22:00)
[2017-12-27] MEDS ORDERED: [UNRECOGNIZED DRUG - OTHER] IV SCH ×10 (22:00)
[2017-12-27] MEDS ORDERED: DEXTROSE 70% IV SCH ×10 (22:00)
[2017-12-28] MEDS: MORPHINE SULFATE 2 MG/ML VIAL. IV PRN ×6 (00:28→22:15)
[2017-12-28] MEDS: PYRIDOSTIGMINE BROMIDE 10 MG/2 ML AMPUL. IV SCH ×3 (02:15→16:23)
[2017-12-28 03:10] VITALS: BP 151/87
[2017-12-28 07:00] VITALS: BP 148/86
--- NOTE | 2017-12-28 07:15 | PDOC ---
PROGRESS NOTES Chief Complaint Chief Complaint myasthenia gravis - new diagnosis Diplopia Dysphagia Eze's thyroiditis Easy bruising History of Present Illness History of Present Illness Pleasant today, feels the same, drowsy, has started plasmapheresis treatments tolerated well,-has an indwelling right subclavian catheter, due today for a session. Still stiff neck, diplopia improved now, right side hand weakness is better. States she is having weakness repositioning and rash on her back is better. Had some issues with Dobbhoff kept on coiling hence now PICC line on the left and TPN going. She will not consent to NGT again, have discussed PEG or J-tube with her and mother bedside, they are still contemplating, would like to discuss with GI. She is able to spit up her secretions-doing well with NIF, d/w RT. She had a videofluoroscopic examination with [employer] showing Abnormal swallowing mechanism with weak pharyngeal peristalsis and a large amount of piriform sinus residue. Is chewing small pieces of ice and trying to handle her secretions better today. Does admit to increasing weakness and fatigability upon repetitive motion which is consistent with myasthenia gravis. 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 Today would like her father called on plan and would like to have session of pheresis tomorrow. Still contemplating PEG tube, would like to readdress on 12/30/17. D/w mother bedside Plan: pyridostigmine and IV steroids started Plasmapheresis per renal/neurology-claims will get 5 doses every other day hence will be here at least until next saturday Thyroid is IV because of swallow issues-still nothing by mouth DTRs are +2 IV Pepcid since swallow issues and is nothing by mouth TPN tolerated - discussed considering surgical consultation and J-tube, they wish to think about it, will readdress daily with GI May need EMG of diaphragm in the future to assess her ability to maintain tidal volume if she does not continue to improve Vitals Vitals Vital Signs Date Time Temp Pulse Resp B/P (MAP) Pulse Ox O2 Delivery O2 Flow Rate FiO2 12/28/17 06:54 Room Air 12/28/17 03:10 97.5 106 18 151/87 (108) 96 97.5 Physical Exam General: Alert, Oriented X3, Cooperative, No acute distress Heart: Regular rate, Normal S1, Normal S2 Abdomen: Normal bowel sounds, Soft, No tenderness, No hepatosplenomegaly, No masses Extremities: No clubbing, No cyanosis Skin: No breakdown, No significant lesion, Other (lipoma at the nape) Labs LABS Laboratory Tests Test 12/27/17 13:20 12/27/17 14:45 12/27/17 18:14 12/28/17 00:51 Fibrinogen 142 mg/dL (200-440) Glucose (Fingerstick) 182 mg/dL (70-99) 225 mg/dL (70-99) 224 mg/dL (70-99) Assessment and Plan Assessmemt and Plan Problems Medical Problems: (1) Diplopia Status: Acute (2) Marijuana abuse Status: Acute (3) Myasthenia gravis with acute exacerbation Status: Acute (4) Neck muscle weakness Status: Acute (5) RUE weakness Status: Acute (6) Sinusitis Status: Acute Comment Review of Relevant I have reviewed the following items maliha (where applicable) has been applied. Labs Laboratory Tests Test 12/26/17 12:09 12/26/17 17:10 12/27/17 05:50 12/27/17 13:20 Glucose (Fingerstick) 159 mg/dL (70-99) 216 mg/dL (70-99) White Blood Count 10.6 x10^3/uL (4.0-11.0) Red Blood Count 4.64 x10^6/uL (3.50-5.40) Hemoglobin 13.4 g/dL (12.0-15.5) Hematocrit 39.6 % (36.0-47.0) Mean Corpuscular Volume 85 fL (79-100) Mean Corpuscular Hemoglobin 29 pg (25-35) Mean Corpuscular Hemoglobin Concent 34 g/dL (31-37) Red Cell Distribution Width 12.5 % (11.5-14.5) Platelet Count 127 x10^3/uL (140-400) Sodium Level 138 mmol/L (136-145) Potassium Level 4.6 mmol/L (3.5-5.1) Chloride Level 103 mmol/L (98-107) Carbon Dioxide Level 30 mmol/L (21-32) Anion Gap 5 (6-14) Blood Urea Nitrogen 19 mg/dL (7-20) Creatinine 0.5 mg/dL (0.6-1.0) Estimated GFR (Cockcroft-Gault) 152.9 BUN/Creatinine Ratio 38 (6-20) Glucose Level 241 mg/dL (70-99) Calcium Level 8.9 mg/dL (8.5-10.1) Total Bilirubin 0.4 mg/dL (0.2-1.0) Aspartate Amino Transf (AST/SGOT) 21 U/L (15-37) Alanine Aminotransferase (ALT/SGPT) 86 U/L (14-59) Alkaline Phosphatase 33 U/L (46-116) Total Protein 5.7 g/dL (6.4-8.2) Albumin 3.6 g/dL (3.4-5.0) Albumin/Globulin Ratio 1.7 (1.0-1.7) Fibrinogen 142 mg/dL (200-440) Test 12/27/17 14:45 12/27/17 18:14 12/28/17 00:51 Glucose (Fingerstick) 182 mg/dL (70-99) 225 mg/dL (70-99) 224 mg/dL (70-99) Laboratory Tests Test 12/27/17 13:20 12/27/17 14:45 12/27/17 18:14 12/28/17 00:51 Fibrinogen 142 mg/dL (200-440) Glucose (Fingerstick) 182 mg/dL (70-99) 225 mg/dL (70-99) 224 mg/dL (70-99) Medications Current Medications Meclizine HCl (Antivert) 25 mg 1X ONCE PO Last administered on 12/17/17at 20:00 ; Start 12/17/17 at 20:00; Stop 12/17/17 at 20:01; Status DC Sodium Chloride 1,000 ml @ 1,000 mls/hr 1X ONCE IV Last administered on at 20:35; Start 12/17/17 at 20:15; Stop 12/17/17 at 21:14; Status DC Ketorolac Tromethamine (Toradol 15mg Vial) 15 mg 1X ONCE IV Last administered on 12/17/17at 20:36; Start 12/17/17 at 20:15; Stop 12/17/17 at 20:16; Status DC Diphenhydramine HCl (Benadryl) 25 mg 1X ONCE PO Last administered on at 02:16; Start 12/18/17 at 02:15; Stop 12/18/17 at 02:18; Status DC Acetaminophen (Tylenol) 500 mg PRN Q6HRS PRN PO MILD PAIN / TEMP; Start at 09:00 Acetaminophen/ Codeine Phosphate (Tylenol #3) 1 tab PRN Q6HRS PRN PO PAIN; Start 12/18/17 at 09:00; Stop 12/18/17 at 12:08; Status DC Ibuprofen (Motrin) 600 mg PRN Q6HRS PRN PO INFLAMMATION; Start 12/18/17 at 09: 00; Stop 12/19/17 at 16:23; Status DC Ondansetron HCl (Zofran) 4 mg PRN Q6HRS PRN IV NAUSEA/VOMITING Last administered on 12/27/17at 14:48; Start 12/18/17 at 09:00 Ondansetron HCl (Zofran Odt) 4 mg PRN Q6HRS PRN PO NAUSEA/VOMITING; Start 12/18 at 09:00; Stop 12/18/17 at 12:08; Status DC Fluticasone Propionate (Flonase) 1 spray DAILY NS Last administered on at 08:13; Start 12/18/17 at 09:00 Acetaminophen/ Hydrocodone Bitart (Lortab 7.5-325/ 15ml Oral Solution) 15 ml PRN Q4HRS PRN PO MODERATE PAIN; Start 12/18/17 at 09:00; Stop 12/19/17 at 16:23 ; Status DC Non-Formulary Medication (Albuterol Sulfate (Proair Hfa Inhaler)) 1 puff PRN Q6HRS PRN INH SHORTNESS OF BREATH; Start 12/18/17 at 09:00; Status UNV Amoxicillin (Amoxil) 750 mg BID PO Last administered on 12/18/17at 21:02; Start 12/18/17 at 10:00; Stop 12/19/17 at 16:23; Status DC Levothyroxine Sodium (Synthroid) 25 mcg DAILY07 PO ; Start 12/18/17 at 10:30; Stop 12/18/17 at 12:08; Status DC Prednisone (Prednisone) 50 mg DAILY PO ; Start 12/18/17 at 10:00; Stop 12/18/17 at 12:08; Status DC Alprazolam (Xanax) 0.25 mg PRN Q8HRS PRN PO ANXIETY / AGITATION; Start at 09:00; Stop 12/19/17 at 08:14; Status DC Zolpidem Tartrate (Ambien) 5 mg PRN QHS PRN PO INSOMNIA; Start 12/18/17 at 09: 00; Stop 12/18/17 at 12:08; Status DC Cetirizine HCl (ZyrTEC) 10 mg DAILY PO ; Start 12/18/17 at 10:00; Stop 12/18/17 at 12:08; Status DC Non-Formulary Medication 1 ea 1X ONCE IV ; Start 12/18/17 at 09:00; Stop at 09:01; Status UNV Potassium Chloride/Dextrose/ Sod Cl 1,000 ml @ 80 mls/hr [id number] IV Last administered on 12/19/17at 10:00; Start 12/18/17 at 09:00; Stop 12/20/17 at 09:07 ; Status DC Albuterol Sulfate (Ventolin Neb Soln) 2.5 mg PRN Q6HRS PRN NEB SHORTNESS OF BREATH Last administered on 12/27/17at 19:26; Start 12/18/17 at 09:30 Iohexol (Omnipaque 300 Mg/ml) 75 ml 1X ONCE IV Last administered on 12/18/17at 10:31; Start 12/18/17 at 10:15; Stop 12/18/17 at 10:16; Status DC Info (CONTRAST GIVEN -- Rx MONITORING) 1 each PRN DAILY PRN MC SEE COMMENTS; Start 12/18/17 at 10:15; Stop 12/20/17 at 10:14; Status DC Levothyroxine Sodium 15 mcg/ Sodium Chloride 5 ml @ 100 mls/hr DAILY IVP Last administered on 12/20/17at 09:41; Start 12/18/17 at 12:30; Stop 12/20/17 at 11:44 ; Status DC Lorazepam (Ativan) 1 mg PRN Q4HRS PRN IV ANXIETY / AGITATION Last administered on 12/28/17at 06:26; Start 12/18/17 at 13:15 Alprazolam (Xanax) 0.25 mg PRN Q8HRS PRN NG ANXIETY / AGITATION Last administered on 12/19/17at 01:13; Start 12/18/17 at 13:15; Stop 12/19/17 at 16:23 ; Status DC Pyridostigmine Ensign (Mestinon) 60 mg BID NG Last administered on 12/18/17at 21:01; Start 12/18/17 at 13:00; Stop 12/19/17 at 16:23; Status DC Prednisone (Prednisone) 50 mg DAILY PO Last administered on 12/18/17at 16:03; Start 12/18/17 at 13:00; Stop 12/19/17 at 16:23; Status DC Famotidine (Pepcid) 20 mg QHS PO Last administered on 12/18/17at 21:01; Start at 21:00; Stop 12/19/17 at 16:23; Status DC Calcium Carbonate/ Glycine (Oscal) 500 mg TIDAFTMEAL PO ; Start 12/18/17 at 18: 00; Stop 12/19/17 at 16:23; Status DC Ergocalciferol (Vitamin D2) 50,000 unit MoTh PO ; Start 12/19/17 at 09:00; Stop 12/19/17 at 16:23; Status DC Lidocaine/Sodium Bicarbonate (Buffered Lidocaine 1%) 3 ml STK-MED ONCE .ROUTE ; Start 12/18/17 at 14:32; Stop 12/18/17 at 14:33; Status DC Heparin Sodium (Porcine) (Heparin Sodium) 10,000 unit STK-MED ONCE .ROUTE ; Start 12/18/17 at 14:32; Stop 12/18/17 at 14:33; Status DC Lidocaine/Sodium Bicarbonate (Buffered Lidocaine 1%) 3 ml 1X ONCE INJ Last administered on 12/18/17at 15:15; Start 12/18/17 at 15:15; Stop 12/18/17 at 15:16 ; Status DC Heparin Sodium (Porcine) (Heparin Sodium) 2,200 unit 1X ONCE INT CAT Last administered on 12/18/17at 15:15; Start 12/18/17 at 15:15; Stop 12/18/17 at 15:16 ; Status DC Scopolamine (Transderm-Scop) 1 patch 1X ONCE TD Last administered on at 21:41; Start 12/18/17 at 21:30; Stop 12/19/17 at 16:23; Status DC Albumin Human 1,500 ml @ 0 mls/hr 1X ONCE IV Last administered on 12/19/17at 11:38; Start 12/19/17 at 08:15; Stop 12/19/17 at 08:16; Status DC Heparin Sodium (Porcine) (Heparin Sodium) 10,000 unit STK-MED ONCE .ROUTE ; Start 12/19/17 at 08:40; Stop 12/19/17 at 08:41; Status DC Info (Tpn Per Pharmacy) 1 each PRN DAILY PRN MC SEE COMMENTS Last administered on 12/27/17at 13:11; Start 12/20/17 at 16:30 Pyridostigmine Ensign (Regonol) 2.5 mg Q12HR IV Last administered on at 09:56; Start 12/19/17 at 21:00; Stop 12/26/17 at 15:52; Status DC Methylprednisolone Sodium Succinate (SOLU-Medrol 40MG VIAL) 40 mg Q12HR IV Last administered on 12/27/17at 21:40; Start 12/19/17 at 21:00 Famotidine (Pepcid Vial) 20 mg QHS IVP Last administered on 12/19/17at 21:33; Start 12/19/17 at 21:00; Stop 12/20/17 at 11:44; Status DC Morphine Sulfate (Morphine Sulfate) 2 mg PRN Q2HR PRN IV MODERATE TO SEVERE PAIN Last administered on 12/28/17at 06:24; Start 12/19/17 at 23:15 Amino Acids/ Glycerin/ Electrolytes 1,000 ml @ 80 mls/hr [id number] IV Last administered on 12/20/17at 09:57; Start 12/20/17 at 09:30; Stop 12/20/17 at 11:44 ; Status DC Alteplase, Recombinant (Cathflo) 2 mg 1X ONCE IV Last administered on at 12:37; Start 12/20/17 at 11:45; Stop 12/20/17 at 11:46; Status DC Cyclobenzaprine HCl (Flexeril) 5 mg QID PO Last administered on 12/21/17at 09:10 ; Start 12/20/17 at 17:00 Cyclobenzaprine HCl (Flexeril) 10 mg 1X ONCE PO ; Start 12/20/17 at 11:45; Stop 12/20/17 at 11:53; Status DC Levothyroxine Sodium (Synthroid) 25 mcg DAILY07 PO ; Start 12/21/17 at 07:00; Stop 12/21/17 at 07:00; Status DC Levothyroxine Sodium 12.5 mcg/ Sodium Chloride 5 ml @ 100 mls/hr DAILY IVP Last administered on 12/27/17at 08:14; Start 12/21/17 at 09:00 Sodium Chloride 90 meq/Potassium Chloride 50 meq/ Potassium Phosphate 13.6 mmol/ Magnesium Sulfate 5 meq/ Calcium Gluconate 5 meq/ Multivitamins 10 ml/Chromium/ Copper/Manganese/ Seleni/Zn 1 ml/ Total Parenteral Nutrition/Amino Acids/ Dextrose/ Fat Emulsion Intravenous 1,512 ml @ 63 mls/hr TPN CONT IV Last administered on 12/20/17at 20:58; Start 12/20/17 at 22:00; Stop 12/21/17 at 21:59 ; Status DC Albumin Human 1,200 ml @ 0 mls/hr 1X ONCE IV Last administered on 12/21/17at 10:40; Start 12/21/17 at 08:45; Stop 12/21/17 at 08:46; Status DC Heparin Sodium (Porcine) (Heparin Sodium) 10,000 unit STK-MED ONCE .ROUTE ; Start 12/21/17 at 08:50; Stop 12/21/17 at 08:51; Status DC Diphenhydramine HCl (Benadryl) 50 mg STK-MED ONCE .ROUTE ; Start 12/21/17 at 11: 46; Stop 12/21/17 at 11:47; Status DC Diphenhydramine HCl (Benadryl) 50 mg 1X ONCE IVP Last administered on at 11:59; Start 12/21/17 at 12:00; Stop 12/21/17 at 12:01; Status DC Sodium Chloride 90 meq/Potassium Chloride 50 meq/ Potassium Phosphate 13.6 mmol/ Magnesium Sulfate 5 meq/ Calcium Gluconate 5 meq/ Multivitamins 10 ml/Chromium/ Copper/Manganese/ Seleni/Zn 1 ml/ Total Parenteral Nutrition/Amino Acids/ Dextrose/ Fat Emulsion Intravenous 1,512 ml @ 63 mls/hr TPN CONT IV Last administered on 12/21/17at 22:00; Start 12/21/17 at 22:00; Stop 12/22/17 at 21:59 ; Status DC Sodium Chloride 90 meq/Potassium Chloride 50 meq/ Potassium Phosphate 13.6 mmol/ Magnesium Sulfate 5 meq/ Calcium Gluconate 5 meq/ Multivitamins 10 ml/Chromium/ Copper/Manganese/ Seleni/Zn 1 ml/ Total Parenteral Nutrition/Amino Acids/ Dextrose/ Fat Emulsion Intravenous 1,512 ml @ 63 mls/hr TPN CONT IV Last administered on 12/22/17at 21:26; Start 12/22/17 at 22:00; Stop 12/23/17 at 21:59 ; Status DC Famotidine (Pepcid Vial) 20 mg QHS IVP Last administered on 12/27/17at 21:40; Start 12/23/17 at 21:00 Sodium Chloride 90 meq/Potassium Chloride 50 meq/ Potassium Phosphate 13.6 mmol/ Magnesium Sulfate 5 meq/ Calcium Gluconate 5 meq/ Multivitamins 10 ml/Chromium/ Copper/Manganese/ Seleni/Zn 1 ml/ Total Parenteral Nutrition/Amino Acids/ Dextrose/ Fat Emulsion Intravenous 1,512 ml @ 63 mls/hr TPN CONT IV Last administered on 12/23/17at 21:10; Start 12/23/17 at 22:00; Stop 12/24/17 at 21:59 ; Status DC Diphenhydramine HCl (Benadryl) 50 mg 1X ONCE IVP Last administered on at 17:33; Start 12/23/17 at 12:00; Stop 12/23/17 at 12:23; Status DC Albumin Human 1,500 ml @ 125 mls/hr 1X ONCE IV Last administered on at 17:34; Start 12/23/17 at 12:30; Stop 12/24/17 at 00:29; Status DC Heparin Sodium (Porcine) (Heparin Sodium) 10,000 unit STK-MED ONCE .ROUTE ; Start 12/23/17 at 14:57; Stop 12/23/17 at 14:58; Status DC Oxycodone/ Acetaminophen (Percocet 5/325) 1 tab PRN Q6HRS PRN PO PAIN; Start 12/23/17 at 20:45; Status Cancel Sodium Chloride 90 meq/Potassium Chloride 50 meq/ Potassium Phosphate 13.6 mmol/ Magnesium Sulfate 5 meq/ Calcium Gluconate 5 meq/ Multivitamins 10 ml/Chromium/ Copper/Manganese/ Seleni/Zn 1 ml/ Total Parenteral Nutrition/Amino Acids/ Dextrose/ Fat Emulsion Intravenous 1,512 ml @ 63 mls/hr TPN CONT IV Last administered on 12/24/17at 21:11; Start 12/24/17 at 22:00; Stop 12/25/17 at 21:59 ; Status DC Calcium Gluconate 2000 mg/Dextrose 120 ml @ 220 mls/hr 1X ONCE IV Last administered on 12/25/17at 09:51; Start 12/25/17 at 10:00; Stop 12/25/17 at 10:32 ; Status DC Diphenhydramine HCl (Benadryl) 50 mg 1X ONCE IVP Last administered on at 14:16; Start 12/25/17 at 09:30; Stop 12/25/17 at 09:31; Status DC Heparin Sodium (Porcine) (Heparin Sodium) 3,000 unit 1X ONCE IV Last administered on 12/25/17at 09:15; Start 12/25/17 at 09:15; Stop 12/25/17 at 09:16 ; Status DC Albumin Human 1,500 ml @ 0 mls/hr 1X ONCE IV Last administered on 12/25/17at 14:19; Start 12/25/17 at 10:45; Stop 12/25/17 at 10:46; Status DC Albumin Human 200 ml @ 0 mls/hr 1X ONCE IV ; Start 12/25/17 at 10:45; Stop 12/25/17 at 10:46; Status DC Heparin Sodium (Porcine) (Heparin Sodium) 10,000 unit STK-MED ONCE .ROUTE ; Start 12/25/17 at 12:39; Stop 12/25/17 at 12:40; Status DC Insulin Human Lispro (HumaLOG) 0-5 UNITS TIDWMEALS SQ Last administered on 12/27at 18:31; Start 12/25/17 at 17:00 Dextrose (Dextrose 50%-Water Syringe) 12.5 gm PRN Q15MIN PRN IV SEE COMMENTS; Start 12/25/17 at 13:30 Sodium Chloride 90 meq/Potassium Chloride 50 meq/ Potassium Phosphate 13.6 mmol/ Magnesium Sulfate 5 meq/ Calcium Gluconate 5 meq/ Multivitamins 10 ml/Chromium/ Copper/Manganese/ Seleni/Zn 1 ml/ Total Parenteral Nutrition/Amino Acids/ Dextrose/ Fat Emulsion Intravenous 1,512 ml @ 63 mls/hr TPN CONT IV Last administered on 12/25/17at 21:42; Start 12/25/17 at 22:00; Stop 12/26/17 at 21:59 ; Status DC Barium Sulfate (Varibar Thin Liquid Apple) 148 gm 1X ONCE PO Last administered on 12/26/17at 13:57; Start 12/26/17 at 12:00; Stop 12/26/17 at 12:01 ; Status DC Sodium Chloride 90 meq/Potassium Chloride 50 meq/ Potassium Phosphate 13.6 mmol/ Magnesium Sulfate 5 meq/ Calcium Gluconate 5 meq/ Multivitamins 10 ml/Chromium/ Copper/Manganese/ Seleni/Zn 1 ml/ Total Parenteral Nutrition/Amino Acids/ Dextrose/ Fat Emulsion Intravenous 1,512 ml @ 63 mls/hr TPN CONT IV Last administered on 12/26/17at 21:37; Start 12/26/17 at 22:00; Stop 12/27/17 at 21:59 ; Status DC Vitamin A/Vitamin D (Vitamin A & D Ointment) 1 lila PRN Q1HR PRN TP SKIN PROTECTION Last administered on 12/26/17at 17:42; Start 12/26/17 at 14:15 Pyridostigmine Ensign (Regonol) 2.5 mg Q8H IV Last administered on 12/28/17at 02:15; Start 12/26/17 at 17:00 Calcium Gluconate 2000 mg/Dextrose 120 ml @ 220 mls/hr 1X ONCE IV ; Start 12/27/17 at 12:30; Stop 12/27/17 at 13:02; Status DC Sodium Chloride 90 meq/Potassium Chloride 50 meq/ Potassium Phosphate 13.6 mmol/ Magnesium Sulfate 5 meq/ Calcium Gluconate 5 meq/ Multivitamins 10 ml/Chromium/ Copper/Manganese/ Seleni/Zn 1 ml/ Total Parenteral Nutrition/Amino Acids/ Dextrose/ Fat Emulsion Intravenous 1,512 ml @ 63 mls/hr TPN CONT IV Last administered on 12/27/17at 23:26; Start 12/27/17 at 22:00; Stop 12/28/17 at 21:59 Albumin Human 1,500 ml @ 0 mls/hr 1X ONCE IV ; Start 12/27/17 at 15:00; Stop 12/27/17 at 15:01; Status DC Sodium Chloride 1,000 ml @ 1,000 mls/hr Q1H ONCE IV ; Start 12/27/17 at 14:30; Stop 12/27/17 at 15:29; Status DC Diphenhydramine HCl (Benadryl) 50 mg 1X ONCE IVP Last administered on at 16:43; Start 12/27/17 at 14:30; Stop 12/27/17 at 14:34; Status DC Heparin Sodium (Porcine) (Heparin Sodium) 10,000 unit STK-MED ONCE .ROUTE ; Start 12/27/17 at 14:42; Stop 12/27/17 at 14:43; Status DC Active Scripts Active Reported Amoxicillin 875 Mg Tablet 1 Tab PO BID Levothyroxine Sodium 25 Mcg Tablet 1 Tab PO DAILY Proair Hfa Inhaler (Albuterol Sulfate) 8.5 Gm Hfa.aer.ad 1 Puff INH PRN Q6HRS PRN [kaitlib fe] Hydrocodone-Apap 7.5-325/15 Soln (Hydrocodone Bit/Acetaminophen) 15 Ml Solution 15 Ml PO PRN Q4HRS PRN Prednisone 50 Mg Tablet 1 Tab PO DAILY Fluticasone Propionate Nasal [place] (Fluticasone Propionate) 16 Gm [place].susp 1 [place] NS DAILY [zoloft] [ativan] Vitals/I & O Vital Sign - Last 24 Hours 12/27/17 12/27/17 12/27/17 12/27/17 07:20 08:00 11:15 14:47 Temp 97.9 97.4 97.9 97.9 97.4 97.9 Pulse 75 66 109 Resp 16 17 16 B/P (MAP) 127/82 (97) 130/81 (97) 139/79 (99) Pulse Ox 95 95 96 O2 Delivery Room Air Room Air Room Air Room Air 12/27/17 12/27/17 12/27/17 12/27/17 16:05 16:49 16:54 17:18 Temp 97.4 97.4 97.4 97.1 97.4 97.4 97.4 97.1 Pulse 63 117 114 98 Resp 18 20 20 18 B/P (MAP) 137/88 129/97 129/97 129/97 12/27/17 12/27/17 12/27/17 12/27/17 19:10 19:28 20:00 21:48 Temp 97.8 97.8 Pulse 94 Resp 18 B/P (MAP) 137/89 (105) Pulse Ox 96 95 O2 Delivery Room Air Room Air Room Air Room Air 12/27/17 12/28/17 12/28/17 12/28/17 23:10 00:28 03:10 03:59 Temp 97.5 97.5 97.5 97.5 Pulse 65 106 Resp 18 18 B/P (MAP) 128/89 (102) 151/87 (108) Pulse Ox 96 96 O2 Delivery Room Air Room Air Room Air Room Air 12/28/17 12/28/17 06:24 06:54 O2 Delivery Room Air Room Air Intake and Output 12/27/17 12/27/17 12/28/17 15:00 23:00 07:00 Intake Total 0 ml 290 ml 0 ml Balance 0 ml 290 ml 0 ml SINDY SANTILLAN MD Dec 28, 2017 07:15
[2017-12-28] MEDS: CYCLOBENZAPRINE 10 MG TABLET. PO SCH ×4 (08:26→19:46)
[2017-12-28] MEDS: FLUTICASONE 50MCG/NASAL SPRAY 16GM BOTTLE. NS SCH (08:54)
[2017-12-28] MEDS: LEVOTHYROXINE SODIUM IVP SCH (08:55)
[2017-12-28] MEDS: NORMAL SALINE IVP SCH (08:55)
[2017-12-28] MEDS: methylPREDNISolone SOD SUCC PF 40 MG/ML VIAL. IV SCH ×2 (09:02→19:51)
[2017-12-28] MEDS: INSULIN LISPRO 300 UNITS/3 ML INSULN.PEN. SQ SCH ×3 (09:17→16:31)
[2017-12-28 11:00] VITALS: BP 139/77
[2017-12-28 13:30] LABS: ALBUMIN 3.4 g/dL (3.4-5.0); ALBUMIN/GLOBULIN RATIO 1.9 (1.0-1.7); CALCIUM 8.3 mg/dL (8.5-10.1); CREATININE 0.4 mg/dL (0.6-1.0); GFR 197.8; POTASSIUM 4.3 mmol/L (3.5-5.1); TOTAL BILIRUBIN 0.5 mg/dL (0.2-1.0); TOTAL PROTEIN 5.2 g/dL (6.4-8.2)
[2017-12-28 15:00] VITALS: BP 135/85
[2017-12-28 19:25] VITALS: BP 143/83
[2017-12-28] MEDS: FAMOTIDINE 20 MG/2 ML VIAL IVP SCH (19:51)
--- NOTE | 2017-12-28 20:48 | PDOC ---
PROGRESS NOTES Assessment 1. New diagnosis of myasthenia gravis with acute exacerbation. She continues to have difficulty with oropharyngeal muscles. She continues to have some right arm weakness. She is doing well with leg strength and walking. Voice continues to sound nasal because of the muscular weakness. She is not experiencing diplopia or eye drooping. She has received plasma exchange and is due for the next exchange tomorrow. She is also receiving intravenous steroids for treatment. She is on cholinesterase inhibitors. 2. She has Eze's thyroiditis. 3. She has a generalized anxiety disorder. Medical Problems: (1) Diplopia Status: Acute (2) Marijuana abuse Status: Acute (3) Myasthenia gravis with acute exacerbation Status: Acute (4) Neck muscle weakness Status: Acute (5) RUE weakness Status: Acute (6) Sinusitis Status: Acute Plan 1. We will continue with plasmapheresis as outlined by Dr. Cheung. 2. She may require alteration of her medications if anxiety is not adequately controlled. Steroids can exacerbate anxiety. 3. She should work with speech and physical therapy for strength and swallow. I would recommend a nasogastric tube to eliminate TPN. Subjective I feel like my voice is a little bit stronger. I was able to get down a few more ice chips today. I left arms doing really well but my right arms little bit weak. I don't have any difficulty with my legs. I've not had any double vision or drooping of my eyes. Objective Vital Signs Date Time Temp Pulse Resp B/P (MAP) Pulse Ox O2 Delivery O2 Flow Rate FiO2 12/28/17 19:25 97.7 92 18 143/83 (103) 97 Room Air 97.7 Intake and Output 12/28/17 07:00 Intake Total 290 ml Balance 290 ml Intake Oral 0 ml Blood Product IV Normal Saline Flush 290 ml # Voids 7 PHYSICAL EXAM She was alert, awake and cooperative. Speech was fluent and clear. She did sound somewhat nasal. She had a good fund of recent and remote knowledge. Attention and concentration was intact. She appeared well-groomed and well- nourished. Examination of the cranial nerves revealed visual figueroa were full to confrontation. Extraocular movements were intact. The eyes were conjugate. Prolonged upgaze did not provoke any drooping of the eyelids. Pupils were 4 mm and reacted. Facial sensation was intact. The muscles of mastication and facial expression were powerful symmetrically. Hearing was intact to finger rub. The palate arch to and the tongue was midline. Muscle bulk and tone was normal. Power was fairly full in the upper and lower extremities. Sensation was intact to light touch. Review of Relevant I have reviewed the following items maliha (where applicable) has been applied. Labs Laboratory Tests Test 12/27/17 05:50 12/27/17 13:20 12/27/17 14:45 12/27/17 18:14 White Blood Count 10.6 x10^3/uL (4.0-11.0) Red Blood Count 4.64 x10^6/uL (3.50-5.40) Hemoglobin 13.4 g/dL (12.0-15.5) Hematocrit 39.6 % (36.0-47.0) Mean Corpuscular Volume 85 fL (79-100) Mean Corpuscular Hemoglobin 29 pg (25-35) Mean Corpuscular Hemoglobin Concent 34 g/dL (31-37) Red Cell Distribution Width 12.5 % (11.5-14.5) Platelet Count 127 x10^3/uL (140-400) Sodium Level 138 mmol/L (136-145) Potassium Level 4.6 mmol/L (3.5-5.1) Chloride Level 103 mmol/L (98-107) Carbon Dioxide Level 30 mmol/L (21-32) Anion Gap 5 (6-14) Blood Urea Nitrogen 19 mg/dL (7-20) Creatinine 0.5 mg/dL (0.6-1.0) Estimated GFR (Cockcroft-Gault) 152.9 BUN/Creatinine Ratio 38 (6-20) Glucose Level 241 mg/dL (70-99) Calcium Level 8.9 mg/dL (8.5-10.1) Total Bilirubin 0.4 mg/dL (0.2-1.0) Aspartate Amino Transf (AST/SGOT) 21 U/L (15-37) Alanine Aminotransferase (ALT/SGPT) 86 U/L (14-59) Alkaline Phosphatase 33 U/L (46-116) Total Protein 5.7 g/dL (6.4-8.2) Albumin 3.6 g/dL (3.4-5.0) Albumin/Globulin Ratio 1.7 (1.0-1.7) Fibrinogen 142 mg/dL (200-440) Glucose (Fingerstick) 182 mg/dL (70-99) 225 mg/dL (70-99) Test 12/28/17 00:51 12/28/17 06:59 12/28/17 11:51 12/28/17 13:00 Glucose (Fingerstick) 224 mg/dL (70-99) 201 mg/dL (70-99) 174 mg/dL (70-99) Sodium Level 140 mmol/L (136-145) Potassium Level 4.3 mmol/L (3.5-5.1) Chloride Level 104 mmol/L (98-107) Carbon Dioxide Level 32 mmol/L (21-32) Anion Gap 4 (6-14) Blood Urea Nitrogen 21 mg/dL (7-20) Creatinine 0.4 mg/dL (0.6-1.0) Estimated GFR (Cockcroft-Gault) 197.8 BUN/Creatinine Ratio 53 (6-20) Glucose Level 141 mg/dL (70-99) Calcium Level 8.3 mg/dL (8.5-10.1) Total Bilirubin 0.5 mg/dL (0.2-1.0) Aspartate Amino Transf (AST/SGOT) 26 U/L (15-37) Alanine Aminotransferase (ALT/SGPT) 96 U/L (14-59) Alkaline Phosphatase 34 U/L (46-116) Total Protein 5.2 g/dL (6.4-8.2) Albumin 3.4 g/dL (3.4-5.0) Albumin/Globulin Ratio 1.9 (1.0-1.7) Test 12/28/17 16:22 Glucose (Fingerstick) 185 mg/dL (70-99) Laboratory Tests Test 12/28/17 00:51 12/28/17 06:59 12/28/17 11:51 12/28/17 13:00 Glucose (Fingerstick) 224 mg/dL (70-99) 201 mg/dL (70-99) 174 mg/dL (70-99) Sodium Level 140 mmol/L (136-145) Potassium Level 4.3 mmol/L (3.5-5.1) Chloride Level 104 mmol/L (98-107) Carbon Dioxide Level 32 mmol/L (21-32) Anion Gap 4 (6-14) Blood Urea Nitrogen 21 mg/dL (7-20) Creatinine 0.4 mg/dL (0.6-1.0) Estimated GFR (Cockcroft-Gault) 197.8 BUN/Creatinine Ratio 53 (6-20) Glucose Level 141 mg/dL (70-99) Calcium Level 8.3 mg/dL (8.5-10.1) Total Bilirubin 0.5 mg/dL (0.2-1.0) Aspartate Amino Transf (AST/SGOT) 26 U/L (15-37) Alanine Aminotransferase (ALT/SGPT) 96 U/L (14-59) Alkaline Phosphatase 34 U/L (46-116) Total Protein 5.2 g/dL (6.4-8.2) Albumin 3.4 g/dL (3.4-5.0) Albumin/Globulin Ratio 1.9 (1.0-1.7) Test 12/28/17 16:22 Glucose (Fingerstick) 185 mg/dL (70-99) Medications Current Medications Meclizine HCl (Antivert) 25 mg 1X ONCE PO Last administered on 12/17/17at 20:00 ; Start 12/17/17 at 20:00; Stop 12/17/17 at 20:01; Status DC Sodium Chloride 1,000 ml @ 1,000 mls/hr 1X ONCE IV Last administered on at 20:35; Start 12/17/17 at 20:15; Stop 12/17/17 at 21:14; Status DC Ketorolac Tromethamine (Toradol 15mg Vial) 15 mg 1X ONCE IV Last administered on 12/17/17at 20:36; Start 12/17/17 at 20:15; Stop 12/17/17 at 20:16; Status DC Diphenhydramine HCl (Benadryl) 25 mg 1X ONCE PO Last administered on at 02:16; Start 12/18/17 at 02:15; Stop 12/18/17 at 02:18; Status DC Acetaminophen (Tylenol) 500 mg PRN Q6HRS PRN PO MILD PAIN / TEMP; Start at 09:00 Acetaminophen/ Codeine Phosphate (Tylenol #3) 1 tab PRN Q6HRS PRN PO PAIN; Start 12/18/17 at 09:00; Stop 12/18/17 at 12:08; Status DC Ibuprofen (Motrin) 600 mg PRN Q6HRS PRN PO INFLAMMATION; Start 12/18/17 at 09: 00; Stop 12/19/17 at 16:23; Status DC Ondansetron HCl (Zofran) 4 mg PRN Q6HRS PRN IV NAUSEA/VOMITING Last administered on 12/27/17at 14:48; Start 12/18/17 at 09:00 Ondansetron HCl (Zofran Odt) 4 mg PRN Q6HRS PRN PO NAUSEA/VOMITING; Start 12/18 at 09:00; Stop 12/18/17 at 12:08; Status DC Fluticasone Propionate (Flonase) 1 spray DAILY NS Last administered on at 08:54; Start 12/18/17 at 09:00 Acetaminophen/ Hydrocodone Bitart (Lortab 7.5-325/ 15ml Oral Solution) 15 ml PRN Q4HRS PRN PO MODERATE PAIN; Start 12/18/17 at 09:00; Stop 12/19/17 at 16:23 ; Status DC Non-Formulary Medication (Albuterol Sulfate (Proair Hfa Inhaler)) 1 puff PRN Q6HRS PRN INH SHORTNESS OF BREATH; Start 12/18/17 at 09:00; Status UNV Amoxicillin (Amoxil) 750 mg BID PO Last administered on 12/18/17at 21:02; Start 12/18/17 at 10:00; Stop 12/19/17 at 16:23; Status DC Levothyroxine Sodium (Synthroid) 25 mcg DAILY07 PO ; Start 12/18/17 at 10:30; Stop 12/18/17 at 12:08; Status DC Prednisone (Prednisone) 50 mg DAILY PO ; Start 12/18/17 at 10:00; Stop 12/18/17 at 12:08; Status DC Alprazolam (Xanax) 0.25 mg PRN Q8HRS PRN PO ANXIETY / AGITATION; Start at 09:00; Stop 12/19/17 at 08:14; Status DC Zolpidem Tartrate (Ambien) 5 mg PRN QHS PRN PO INSOMNIA; Start 12/18/17 at 09: 00; Stop 12/18/17 at 12:08; Status DC Cetirizine HCl (ZyrTEC) 10 mg DAILY PO ; Start 12/18/17 at 10:00; Stop 12/18/17 at 12:08; Status DC Non-Formulary Medication 1 ea 1X ONCE IV ; Start 12/18/17 at 09:00; Stop at 09:01; Status UNV Potassium Chloride/Dextrose/ Sod Cl 1,000 ml @ 80 mls/hr [id number] IV Last administered on 12/19/17at 10:00; Start 12/18/17 at 09:00; Stop 12/20/17 at 09:07 ; Status DC Albuterol Sulfate (Ventolin Neb Soln) 2.5 mg PRN Q6HRS PRN NEB SHORTNESS OF BREATH Last administered on 12/27/17at 19:26; Start 12/18/17 at 09:30 Iohexol (Omnipaque 300 Mg/ml) 75 ml 1X ONCE IV Last administered on 12/18/17at 10:31; Start 12/18/17 at 10:15; Stop 12/18/17 at 10:16; Status DC Info (CONTRAST GIVEN -- Rx MONITORING) 1 each PRN DAILY PRN MC SEE COMMENTS; Start 12/18/17 at 10:15; Stop 12/20/17 at 10:14; Status DC Levothyroxine Sodium 15 mcg/ Sodium Chloride 5 ml @ 100 mls/hr DAILY IVP Last administered on 12/20/17at 09:41; Start 12/18/17 at 12:30; Stop 12/20/17 at 11:44 ; Status DC Lorazepam (Ativan) 1 mg PRN Q4HRS PRN IV ANXIETY / AGITATION Last administered on 12/28/17at 16:32; Start 12/18/17 at 13:15 Alprazolam (Xanax) 0.25 mg PRN Q8HRS PRN NG ANXIETY / AGITATION Last administered on 12/19/17at 01:13; Start 12/18/17 at 13:15; Stop 12/19/17 at 16:23 ; Status DC Pyridostigmine Conde (Mestinon) 60 mg BID NG Last administered on 12/18/17at 21:01; Start 12/18/17 at 13:00; Stop 12/19/17 at 16:23; Status DC Prednisone (Prednisone) 50 mg DAILY PO Last administered on 12/18/17at 16:03; Start 12/18/17 at 13:00; Stop 12/19/17 at 16:23; Status DC Famotidine (Pepcid) 20 mg QHS PO Last administered on 12/18/17at 21:01; Start at 21:00; Stop 12/19/17 at 16:23; Status DC Calcium Carbonate/ Glycine (Oscal) 500 mg TIDAFTMEAL PO ; Start 12/18/17 at 18: 00; Stop 12/19/17 at 16:23; Status DC Ergocalciferol (Vitamin D2) 50,000 unit MoTh PO ; Start 12/19/17 at 09:00; Stop 12/19/17 at 16:23; Status DC Lidocaine/Sodium Bicarbonate (Buffered Lidocaine 1%) 3 ml STK-MED ONCE .ROUTE ; Start 12/18/17 at 14:32; Stop 12/18/17 at 14:33; Status DC Heparin Sodium (Porcine) (Heparin Sodium) 10,000 unit STK-MED ONCE .ROUTE ; Start 12/18/17 at 14:32; Stop 12/18/17 at 14:33; Status DC Lidocaine/Sodium Bicarbonate (Buffered Lidocaine 1%) 3 ml 1X ONCE INJ Last administered on 12/18/17at 15:15; Start 12/18/17 at 15:15; Stop 12/18/17 at 15:16 ; Status DC Heparin Sodium (Porcine) (Heparin Sodium) 2,200 unit 1X ONCE INT CAT Last administered on 12/18/17at 15:15; Start 12/18/17 at 15:15; Stop 12/18/17 at 15:16 ; Status DC Scopolamine (Transderm-Scop) 1 patch 1X ONCE TD Last administered on at 21:41; Start 12/18/17 at 21:30; Stop 12/19/17 at 16:23; Status DC Albumin Human 1,500 ml @ 0 mls/hr 1X ONCE IV Last administered on 12/19/17at 11:38; Start 12/19/17 at 08:15; Stop 12/19/17 at 08:16; Status DC Heparin Sodium (Porcine) (Heparin Sodium) 10,000 unit STK-MED ONCE .ROUTE ; Start 12/19/17 at 08:40; Stop 12/19/17 at 08:41; Status DC Info (Tpn Per Pharmacy) 1 each PRN DAILY PRN MC SEE COMMENTS Last administered on 12/27/17at 13:11; Start 12/20/17 at 16:30 Pyridostigmine Conde (Regonol) 2.5 mg Q12HR IV Last administered on at 09:56; Start 12/19/17 at 21:00; Stop 12/26/17 at 15:52; Status DC Methylprednisolone Sodium Succinate (SOLU-Medrol 40MG VIAL) 40 mg Q12HR IV Last administered on 12/28/17at 19:51; Start 12/19/17 at 21:00 Famotidine (Pepcid Vial) 20 mg QHS IVP Last administered on 12/19/17at 21:33; Start 12/19/17 at 21:00; Stop 12/20/17 at 11:44; Status DC Morphine Sulfate (Morphine Sulfate) 2 mg PRN Q2HR PRN IV MODERATE TO SEVERE PAIN Last administered on 12/28/17at 16:32; Start 12/19/17 at 23:15 Amino Acids/ Glycerin/ Electrolytes 1,000 ml @ 80 mls/hr [id number] IV Last administered on 12/20/17at 09:57; Start 12/20/17 at 09:30; Stop 12/20/17 at 11:44 ; Status DC Alteplase, Recombinant (Cathflo) 2 mg 1X ONCE IV Last administered on at 12:37; Start 12/20/17 at 11:45; Stop 12/20/17 at 11:46; Status DC Cyclobenzaprine HCl (Flexeril) 5 mg QID PO Last administered on 12/21/17at 09:10 ; Start 12/20/17 at 17:00 Cyclobenzaprine HCl (Flexeril) 10 mg 1X ONCE PO ; Start 12/20/17 at 11:45; Stop 12/20/17 at 11:53; Status DC Levothyroxine Sodium (Synthroid) 25 mcg DAILY07 PO ; Start 12/21/17 at 07:00; Stop 12/21/17 at 07:00; Status DC Levothyroxine Sodium 12.5 mcg/ Sodium Chloride 5 ml @ 100 mls/hr DAILY IVP Last administered on 12/28/17at 08:55; Start 12/21/17 at 09:00 Sodium Chloride 90 meq/Potassium Chloride 50 meq/ Potassium Phosphate 13.6 mmol/ Magnesium Sulfate 5 meq/ Calcium Gluconate 5 meq/ Multivitamins 10 ml/Chromium/ Copper/Manganese/ Seleni/Zn 1 ml/ Total Parenteral Nutrition/Amino Acids/ Dextrose/ Fat Emulsion Intravenous 1,512 ml @ 63 mls/hr TPN CONT IV Last administered on 12/20/17at 20:58; Start 12/20/17 at 22:00; Stop 12/21/17 at 21:59 ; Status DC Albumin Human 1,200 ml @ 0 mls/hr 1X ONCE IV Last administered on 12/21/17at 10:40; Start 12/21/17 at 08:45; Stop 12/21/17 at 08:46; Status DC Heparin Sodium (Porcine) (Heparin Sodium) 10,000 unit STK-MED ONCE .ROUTE ; Start 12/21/17 at 08:50; Stop 12/21/17 at 08:51; Status DC Diphenhydramine HCl (Benadryl) 50 mg STK-MED ONCE .ROUTE ; Start 12/21/17 at 11: 46; Stop 12/21/17 at 11:47; Status DC Diphenhydramine HCl (Benadryl) 50 mg 1X ONCE IVP Last administered on at 11:59; Start 12/21/17 at 12:00; Stop 12/21/17 at 12:01; Status DC Sodium Chloride 90 meq/Potassium Chloride 50 meq/ Potassium Phosphate 13.6 mmol/ Magnesium Sulfate 5 meq/ Calcium Gluconate 5 meq/ Multivitamins 10 ml/Chromium/ Copper/Manganese/ Seleni/Zn 1 ml/ Total Parenteral Nutrition/Amino Acids/ Dextrose/ Fat Emulsion Intravenous 1,512 ml @ 63 mls/hr TPN CONT IV Last administered on 12/21/17at 22:00; Start 12/21/17 at 22:00; Stop 12/22/17 at 21:59 ; Status DC Sodium Chloride 90 meq/Potassium Chloride 50 meq/ Potassium Phosphate 13.6 mmol/ Magnesium Sulfate 5 meq/ Calcium Gluconate 5 meq/ Multivitamins 10 ml/Chromium/ Copper/Manganese/ Seleni/Zn 1 ml/ Total Parenteral Nutrition/Amino Acids/ Dextrose/ Fat Emulsion Intravenous 1,512 ml @ 63 mls/hr TPN CONT IV Last administered on 12/22/17at 21:26; Start 12/22/17 at 22:00; Stop 12/23/17 at 21:59 ; Status DC Famotidine (Pepcid Vial) 20 mg QHS IVP Last administered on 12/28/17at 19:51; Start 12/23/17 at 21:00 Sodium Chloride 90 meq/Potassium Chloride 50 meq/ Potassium Phosphate 13.6 mmol/ Magnesium Sulfate 5 meq/ Calcium Gluconate 5 meq/ Multivitamins 10 ml/Chromium/ Copper/Manganese/ Seleni/Zn 1 ml/ Total Parenteral Nutrition/Amino Acids/ Dextrose/ Fat Emulsion Intravenous 1,512 ml @ 63 mls/hr TPN CONT IV Last administered on 12/23/17at 21:10; Start 12/23/17 at 22:00; Stop 12/24/17 at 21:59 ; Status DC Diphenhydramine HCl (Benadryl) 50 mg 1X ONCE IVP Last administered on at 17:33; Start 12/23/17 at 12:00; Stop 12/23/17 at 12:23; Status DC Albumin Human 1,500 ml @ 125 mls/hr 1X ONCE IV Last administered on at 17:34; Start 12/23/17 at 12:30; Stop 12/24/17 at 00:29; Status DC Heparin Sodium (Porcine) (Heparin Sodium) 10,000 unit STK-MED ONCE .ROUTE ; Start 12/23/17 at 14:57; Stop 12/23/17 at 14:58; Status DC Oxycodone/ Acetaminophen (Percocet 5/325) 1 tab PRN Q6HRS PRN PO PAIN; Start 12/23/17 at 20:45; Status Cancel Sodium Chloride 90 meq/Potassium Chloride 50 meq/ Potassium Phosphate 13.6 mmol/ Magnesium Sulfate 5 meq/ Calcium Gluconate 5 meq/ Multivitamins 10 ml/Chromium/ Copper/Manganese/ Seleni/Zn 1 ml/ Total Parenteral Nutrition/Amino Acids/ Dextrose/ Fat Emulsion Intravenous 1,512 ml @ 63 mls/hr TPN CONT IV Last administered on 12/24/17at 21:11; Start 12/24/17 at 22:00; Stop 12/25/17 at 21:59 ; Status DC Calcium Gluconate 2000 mg/Dextrose 120 ml @ 220 mls/hr 1X ONCE IV Last administered on 12/25/17at 09:51; Start 12/25/17 at 10:00; Stop 12/25/17 at 10:32 ; Status DC Diphenhydramine HCl (Benadryl) 50 mg 1X ONCE IVP Last administered on at 14:16; Start 12/25/17 at 09:30; Stop 12/25/17 at 09:31; Status DC Heparin Sodium (Porcine) (Heparin Sodium) 3,000 unit 1X ONCE IV Last administered on 12/25/17at 09:15; Start 12/25/17 at 09:15; Stop 12/25/17 at 09:16 ; Status DC Albumin Human 1,500 ml @ 0 mls/hr 1X ONCE IV Last administered on 12/25/17at 14:19; Start 12/25/17 at 10:45; Stop 12/25/17 at 10:46; Status DC Albumin Human 200 ml @ 0 mls/hr 1X ONCE IV ; Start 12/25/17 at 10:45; Stop 12/25/17 at 10:46; Status DC Heparin Sodium (Porcine) (Heparin Sodium) 10,000 unit STK-MED ONCE .ROUTE ; Start 12/25/17 at 12:39; Stop 12/25/17 at 12:40; Status DC Insulin Human Lispro (HumaLOG) 0-5 UNITS TIDWMEALS SQ Last administered on 12/28at 16:31; Start 12/25/17 at 17:00 Dextrose (Dextrose 50%-Water Syringe) 12.5 gm PRN Q15MIN PRN IV SEE COMMENTS; Start 12/25/17 at 13:30 Sodium Chloride 90 meq/Potassium Chloride 50 meq/ Potassium Phosphate 13.6 mmol/ Magnesium Sulfate 5 meq/ Calcium Gluconate 5 meq/ Multivitamins 10 ml/Chromium/ Copper/Manganese/ Seleni/Zn 1 ml/ Total Parenteral Nutrition/Amino Acids/ Dextrose/ Fat Emulsion Intravenous 1,512 ml @ 63 mls/hr TPN CONT IV Last administered on 12/25/17at 21:42; Start 12/25/17 at 22:00; Stop 12/26/17 at 21:59 ; Status DC Barium Sulfate (Varibar Thin Liquid Apple) 148 gm 1X ONCE PO Last administered on 12/26/17at 13:57; Start 12/26/17 at 12:00; Stop 12/26/17 at 12:01 ; Status DC Sodium Chloride 90 meq/Potassium Chloride 50 meq/ Potassium Phosphate 13.6 mmol/ Magnesium Sulfate 5 meq/ Calcium Gluconate 5 meq/ Multivitamins 10 ml/Chromium/ Copper/Manganese/ Seleni/Zn 1 ml/ Total Parenteral Nutrition/Amino Acids/ Dextrose/ Fat Emulsion Intravenous 1,512 ml @ 63 mls/hr TPN CONT IV Last administered on 12/26/17at 21:37; Start 12/26/17 at 22:00; Stop 12/27/17 at 21:59 ; Status DC Vitamin A/Vitamin D (Vitamin A & D Ointment) 1 lila PRN Q1HR PRN TP SKIN PROTECTION Last administered on 12/26/17at 17:42; Start 12/26/17 at 14:15 Pyridostigmine Conde (Regonol) 2.5 mg Q8H IV Last administered on 12/28/17at 16:23; Start 12/26/17 at 17:00 Calcium Gluconate 2000 mg/Dextrose 120 ml @ 220 mls/hr 1X ONCE IV ; Start 12/27/17 at 12:30; Stop 12/27/17 at 13:02; Status DC Sodium Chloride 90 meq/Potassium Chloride 50 meq/ Potassium Phosphate 13.6 mmol/ Magnesium Sulfate 5 meq/ Calcium Gluconate 5 meq/ Multivitamins 10 ml/Chromium/ Copper/Manganese/ Seleni/Zn 1 ml/ Total Parenteral Nutrition/Amino Acids/ Dextrose/ Fat Emulsion Intravenous 1,512 ml @ 63 mls/hr TPN CONT IV Last administered on 12/27/17at 23:26; Start 12/27/17 at 22:00; Stop 12/28/17 at 21:59 Albumin Human 1,500 ml @ 0 mls/hr 1X ONCE IV ; Start 12/27/17 at 15:00; Stop 12/27/17 at 15:01; Status DC Sodium Chloride 1,000 ml @ 1,000 mls/hr Q1H ONCE IV ; Start 12/27/17 at 14:30; Stop 12/27/17 at 15:29; Status DC Diphenhydramine HCl (Benadryl) 50 mg 1X ONCE IVP Last administered on at 16:43; Start 12/27/17 at 14:30; Stop 12/27/17 at 14:34; Status DC Heparin Sodium (Porcine) (Heparin Sodium) 10,000 unit STK-MED ONCE .ROUTE ; Start 12/27/17 at 14:42; Stop 12/27/17 at 14:43; Status DC Sodium Chloride 90 meq/Potassium Chloride 50 meq/ Potassium Phosphate 13.6 mmol/ Magnesium Sulfate 5 meq/ Calcium Gluconate 5 meq/ Multivitamins 10 ml/Chromium/ Copper/Manganese/ Seleni/Zn 1 ml/ Total Parenteral Nutrition/Amino Acids/ Dextrose/ Fat Emulsion Intravenous 1,512 ml @ 63 mls/hr TPN CONT IV ; Start 12/28/17 at 22:00; Stop 12/29/17 at 21:59 Active Scripts Active Reported Amoxicillin 875 Mg Tablet 1 Tab PO BID Levothyroxine Sodium 25 Mcg Tablet 1 Tab PO DAILY Proair Hfa Inhaler (Albuterol Sulfate) 8.5 Gm Hfa.aer.ad 1 Puff INH PRN Q6HRS PRN [kaitlib fe] Hydrocodone-Apap 7.5-325/15 Soln (Hydrocodone Bit/Acetaminophen) 15 Ml Solution 15 Ml PO PRN Q4HRS PRN Prednisone 50 Mg Tablet 1 Tab PO DAILY Fluticasone Propionate Nasal [place] (Fluticasone Propionate) 16 Gm [place].susp 1 [place] NS DAILY [zoloft] [ativan] Vitals/I & O Vital Sign - Last 24 Hours 12/27/17 12/27/17 12/28/17 12/28/17 21:48 23:10 00:28 03:10 Temp 97.5 97.5 97.5 97.5 Pulse 65 106 Resp 18 18 B/P (MAP) 128/89 (102) 151/87 (108) Pulse Ox 96 96 O2 Delivery Room Air Room Air Room Air Room Air 12/28/17 12/28/17 12/28/17 12/28/17 03:59 06:24 07:00 07:23 Temp 96.4 96.4 Pulse 62 Resp 18 B/P (MAP) 148/86 (106) Pulse Ox 96 O2 Delivery Room Air Room Air Room Air Room Air 10/6/18 12/28/17 12/28/17 12/28/17 11:00 11:04 15:00 16:32 Temp 96.4 96.6 96.4 96.6 Pulse 74 93 Resp 18 18 B/P (MAP) 139/77 (97) 135/85 (102) Pulse Ox 96 97 O2 Delivery Room Air Room Air Room Air Room Air 12/28/17 12/28/17 17:02 19:25 Temp 97.7 97.7 Pulse 92 Resp 18 B/P (MAP) 143/83 (103) Pulse Ox 97 O2 Delivery Room Air Room Air Intake and Output 12/27/17 12/27/17 12/28/17 15:00 23:00 07:00 Intake Total 0 ml 290 ml 0 ml Balance 0 ml 290 ml 0 ml VIVIANE VELASQUEZ MD Dec 28, 2017 20:48
[2017-12-28] MEDS ORDERED: TOTAL PARENTERAL NUTRITION IV SCH ×10 (22:00)
[2017-12-28] MEDS ORDERED: AMINO ACIDS IV SCH ×10 (22:00)
[2017-12-28] MEDS ORDERED: DEXTROSE 70% IV SCH ×10 (22:00)
[2017-12-28] MEDS ORDERED: [UNRECOGNIZED DRUG - OTHER] IV SCH ×10 (22:00)
[2017-12-28 23:42] VITALS: BP 140/78
[2017-12-29] MEDS: PYRIDOSTIGMINE BROMIDE 10 MG/2 ML AMPUL. IV SCH ×3 (00:32→17:39)
[2017-12-29] MEDS: MORPHINE SULFATE 2 MG/ML VIAL. IV PRN ×7 (00:32→22:03)
[2017-12-29 03:15] VITALS: BP 127/74
[2017-12-29 04:39] LABS: ALBUMIN 3.2 g/dL (3.4-5.0); ALBUMIN/GLOBULIN RATIO 1.6 (1.0-1.7); CALCIUM 8.5 mg/dL (8.5-10.1); CREATININE 0.5 mg/dL (0.6-1.0); GFR 152.9; POTASSIUM 4.3 mmol/L (3.5-5.1); TOTAL BILIRUBIN 0.5 mg/dL (0.2-1.0); TOTAL PROTEIN 5.2 g/dL (6.4-8.2)
[2017-12-29 07:00] VITALS: BP 134/90
--- NOTE | 2017-12-29 08:38 | PDOC ---
PROGRESS NOTES Chief Complaint Chief Complaint myasthenia gravis - new diagnosis Diplopia Dysphagia Eze's thyroiditis Easy bruising History of Present Illness History of Present Illness 22yo CF p/w progressive weakness, difficulty swallowing, found with positive myasthenia gravis and hyperthroidism and transaminitis, started on plasmapheresis through right subclavian catheter. Still stiff neck, diplopia improved now, right side hand weakness is better. States she is having weakness repositioning and rash on her back is better. Failed NGT feeds, now TPN going for a week. She will not consent to NGT again, have discussed PEG or J-tube. Still contemplating PEG tube, would like to readdress on 12/30/17. She is able to spit up her secretions-doing well with NIF, d/w RT. 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 Today would like her father called on plan and would like to have session of pheresis tomorrow. Did not sleep well last night, would like a sleeping aid. A/P: Myasthenia gravis - with GI and respiratory symptoms - pyridostigmine and IV steroids started - Plasmapheresis per renal/neurology - claims will get 5 doses every other day hence will be here at least until next Saturday Hyperthyroid - Thyroid is IV because of swallow issues - still nothing by mouth Dysphagia - IV Pepcid since swallow issues and is nothing by mouth - TPN tolerated - discussed considering surgical consultation and J-tube, they wish to think about it, will readdress daily with GI Shortness of breath - May need EMG of diaphragm in the future to assess her ability to maintain tidal volume if she does not continue to improve Transaminitis - improving, GI following Insomnia - would like a sleep aid, will start remeron soltabs Vitals Vitals Vital Signs Date Time Temp Pulse Resp B/P (MAP) Pulse Ox O2 Delivery O2 Flow Rate FiO2 12/29/17 07:00 98.0 68 16 134/90 (105) 97 Room Air 98.0 Physical Exam General: Alert, Oriented X3, Cooperative, No acute distress Heart: Regular rate, Normal S1, Normal S2 Abdomen: Normal bowel sounds, Soft, No tenderness, No hepatosplenomegaly, No masses Extremities: No clubbing, No cyanosis Skin: No breakdown, No significant lesion, Other (lipoma at the nape) Labs LABS Laboratory Tests Test 12/28/17 11:51 12/28/17 13:00 12/28/17 16:22 12/29/17 00:33 Glucose (Fingerstick) 174 mg/dL (70-99) 185 mg/dL (70-99) 228 mg/dL (70-99) Sodium Level 140 mmol/L (136-145) Potassium Level 4.3 mmol/L (3.5-5.1) Chloride Level 104 mmol/L (98-107) Carbon Dioxide Level 32 mmol/L (21-32) Anion Gap 4 (6-14) Blood Urea Nitrogen 21 mg/dL (7-20) Creatinine 0.4 mg/dL (0.6-1.0) Estimated GFR (Cockcroft-Gault) 197.8 BUN/Creatinine Ratio 53 (6-20) Glucose Level 141 mg/dL (70-99) Calcium Level 8.3 mg/dL (8.5-10.1) Total Bilirubin 0.5 mg/dL (0.2-1.0) Aspartate Amino Transf (AST/SGOT) 26 U/L (15-37) Alanine Aminotransferase (ALT/SGPT) 96 U/L (14-59) Alkaline Phosphatase 34 U/L (46-116) Total Protein 5.2 g/dL (6.4-8.2) Albumin 3.4 g/dL (3.4-5.0) Albumin/Globulin Ratio 1.9 (1.0-1.7) Test 12/29/17 04:00 12/29/17 06:20 Sodium Level 139 mmol/L (136-145) Potassium Level 4.3 mmol/L (3.5-5.1) Chloride Level 103 mmol/L (98-107) Carbon Dioxide Level 32 mmol/L (21-32) Anion Gap 4 (6-14) Blood Urea Nitrogen 21 mg/dL (7-20) Creatinine 0.5 mg/dL (0.6-1.0) Estimated GFR (Cockcroft-Gault) 152.9 BUN/Creatinine Ratio 42 (6-20) Glucose Level 226 mg/dL (70-99) Calcium Level 8.5 mg/dL (8.5-10.1) Total Bilirubin 0.5 mg/dL (0.2-1.0) Aspartate Amino Transf (AST/SGOT) 39 U/L (15-37) Alanine Aminotransferase (ALT/SGPT) 145 U/L (14-59) Alkaline Phosphatase 37 U/L (46-116) Total Protein 5.2 g/dL (6.4-8.2) Albumin 3.2 g/dL (3.4-5.0) Albumin/Globulin Ratio 1.6 (1.0-1.7) Glucose (Fingerstick) 202 mg/dL (70-99) Assessment and Plan Assessmemt and Plan Problems Medical Problems: (1) Diplopia Status: Acute (2) Marijuana abuse Status: Acute (3) Myasthenia gravis with acute exacerbation Status: Acute (4) Neck muscle weakness Status: Acute (5) RUE weakness Status: Acute (6) Sinusitis Status: Acute Comment Review of Relevant I have reviewed the following items maliah (where applicable) has been applied. Labs Laboratory Tests Test 12/27/17 13:20 12/27/17 14:45 12/27/17 18:14 12/28/17 00:51 Fibrinogen 142 mg/dL (200-440) Glucose (Fingerstick) 182 mg/dL (70-99) 225 mg/dL (70-99) 224 mg/dL (70-99) Test 12/28/17 06:59 12/28/17 11:51 12/28/17 13:00 12/28/17 16:22 Glucose (Fingerstick) 201 mg/dL (70-99) 174 mg/dL (70-99) 185 mg/dL (70-99) Sodium Level 140 mmol/L (136-145) Potassium Level 4.3 mmol/L (3.5-5.1) Chloride Level 104 mmol/L (98-107) Carbon Dioxide Level 32 mmol/L (21-32) Anion Gap 4 (6-14) Blood Urea Nitrogen 21 mg/dL (7-20) Creatinine 0.4 mg/dL (0.6-1.0) Estimated GFR (Cockcroft-Gault) 197.8 BUN/Creatinine Ratio 53 (6-20) Glucose Level 141 mg/dL (70-99) Calcium Level 8.3 mg/dL (8.5-10.1) Total Bilirubin 0.5 mg/dL (0.2-1.0) Aspartate Amino Transf (AST/SGOT) 26 U/L (15-37) Alanine Aminotransferase (ALT/SGPT) 96 U/L (14-59) Alkaline Phosphatase 34 U/L (46-116) Total Protein 5.2 g/dL (6.4-8.2) Albumin 3.4 g/dL (3.4-5.0) Albumin/Globulin Ratio 1.9 (1.0-1.7) Test 12/29/17 00:33 12/29/17 04:00 12/29/17 06:20 Glucose (Fingerstick) 228 mg/dL (70-99) 202 mg/dL (70-99) Sodium Level 139 mmol/L (136-145) Potassium Level 4.3 mmol/L (3.5-5.1) Chloride Level 103 mmol/L (98-107) Carbon Dioxide Level 32 mmol/L (21-32) Anion Gap 4 (6-14) Blood Urea Nitrogen 21 mg/dL (7-20) Creatinine 0.5 mg/dL (0.6-1.0) Estimated GFR (Cockcroft-Gault) 152.9 BUN/Creatinine Ratio 42 (6-20) Glucose Level 226 mg/dL (70-99) Calcium Level 8.5 mg/dL (8.5-10.1) Total Bilirubin 0.5 mg/dL (0.2-1.0) Aspartate Amino Transf (AST/SGOT) 39 U/L (15-37) Alanine Aminotransferase (ALT/SGPT) 145 U/L (14-59) Alkaline Phosphatase 37 U/L (46-116) Total Protein 5.2 g/dL (6.4-8.2) Albumin 3.2 g/dL (3.4-5.0) Albumin/Globulin Ratio 1.6 (1.0-1.7) Laboratory Tests Test 12/28/17 11:51 12/28/17 13:00 12/28/17 16:22 12/29/17 00:33 Glucose (Fingerstick) 174 mg/dL (70-99) 185 mg/dL (70-99) 228 mg/dL (70-99) Sodium Level 140 mmol/L (136-145) Potassium Level 4.3 mmol/L (3.5-5.1) Chloride Level 104 mmol/L (98-107) Carbon Dioxide Level 32 mmol/L (21-32) Anion Gap 4 (6-14) Blood Urea Nitrogen 21 mg/dL (7-20) Creatinine 0.4 mg/dL (0.6-1.0) Estimated GFR (Cockcroft-Gault) 197.8 BUN/Creatinine Ratio 53 (6-20) Glucose Level 141 mg/dL (70-99) Calcium Level 8.3 mg/dL (8.5-10.1) Total Bilirubin 0.5 mg/dL (0.2-1.0) Aspartate Amino Transf (AST/SGOT) 26 U/L (15-37) Alanine Aminotransferase (ALT/SGPT) 96 U/L (14-59) Alkaline Phosphatase 34 U/L (46-116) Total Protein 5.2 g/dL (6.4-8.2) Albumin 3.4 g/dL (3.4-5.0) Albumin/Globulin Ratio 1.9 (1.0-1.7) Test 12/29/17 04:00 12/29/17 06:20 Sodium Level 139 mmol/L (136-145) Potassium Level 4.3 mmol/L (3.5-5.1) Chloride Level 103 mmol/L (98-107) Carbon Dioxide Level 32 mmol/L (21-32) Anion Gap 4 (6-14) Blood Urea Nitrogen 21 mg/dL (7-20) Creatinine 0.5 mg/dL (0.6-1.0) Estimated GFR (Cockcroft-Gault) 152.9 BUN/Creatinine Ratio 42 (6-20) Glucose Level 226 mg/dL (70-99) Calcium Level 8.5 mg/dL (8.5-10.1) Total Bilirubin 0.5 mg/dL (0.2-1.0) Aspartate Amino Transf (AST/SGOT) 39 U/L (15-37) Alanine Aminotransferase (ALT/SGPT) 145 U/L (14-59) Alkaline Phosphatase 37 U/L (46-116) Total Protein 5.2 g/dL (6.4-8.2) Albumin 3.2 g/dL (3.4-5.0) Albumin/Globulin Ratio 1.6 (1.0-1.7) Glucose (Fingerstick) 202 mg/dL (70-99) Medications Current Medications Meclizine HCl (Antivert) 25 mg 1X ONCE PO Last administered on 12/17/17at 20:00 ; Start 12/17/17 at 20:00; Stop 12/17/17 at 20:01; Status DC Sodium Chloride 1,000 ml @ 1,000 mls/hr 1X ONCE IV Last administered on at 20:35; Start 12/17/17 at 20:15; Stop 12/17/17 at 21:14; Status DC Ketorolac Tromethamine (Toradol 15mg Vial) 15 mg 1X ONCE IV Last administered on 12/17/17at 20:36; Start 12/17/17 at 20:15; Stop 12/17/17 at 20:16; Status DC Diphenhydramine HCl (Benadryl) 25 mg 1X ONCE PO Last administered on at 02:16; Start 12/18/17 at 02:15; Stop 12/18/17 at 02:18; Status DC Acetaminophen (Tylenol) 500 mg PRN Q6HRS PRN PO MILD PAIN / TEMP; Start at 09:00 Acetaminophen/ Codeine Phosphate (Tylenol #3) 1 tab PRN Q6HRS PRN PO PAIN; Start 12/18/17 at 09:00; Stop 12/18/17 at 12:08; Status DC Ibuprofen (Motrin) 600 mg PRN Q6HRS PRN PO INFLAMMATION; Start 12/18/17 at 09: 00; Stop 12/19/17 at 16:23; Status DC Ondansetron HCl (Zofran) 4 mg PRN Q6HRS PRN IV NAUSEA/VOMITING Last administered on 12/27/17at 14:48; Start 12/18/17 at 09:00 Ondansetron HCl (Zofran Odt) 4 mg PRN Q6HRS PRN PO NAUSEA/VOMITING; Start 12/18 at 09:00; Stop 12/18/17 at 12:08; Status DC Fluticasone Propionate (Flonase) 1 spray DAILY NS Last administered on at 08:54; Start 12/18/17 at 09:00 Acetaminophen/ Hydrocodone Bitart (Lortab 7.5-325/ 15ml Oral Solution) 15 ml PRN Q4HRS PRN PO MODERATE PAIN; Start 12/18/17 at 09:00; Stop 12/19/17 at 16:23 ; Status DC Non-Formulary Medication (Albuterol Sulfate (Proair Hfa Inhaler)) 1 puff PRN Q6HRS PRN INH SHORTNESS OF BREATH; Start 12/18/17 at 09:00; Status UNV Amoxicillin (Amoxil) 750 mg BID PO Last administered on 12/18/17at 21:02; Start 12/18/17 at 10:00; Stop 12/19/17 at 16:23; Status DC Levothyroxine Sodium (Synthroid) 25 mcg DAILY07 PO ; Start 12/18/17 at 10:30; Stop 12/18/17 at 12:08; Status DC Prednisone (Prednisone) 50 mg DAILY PO ; Start 12/18/17 at 10:00; Stop 12/18/17 at 12:08; Status DC Alprazolam (Xanax) 0.25 mg PRN Q8HRS PRN PO ANXIETY / AGITATION; Start at 09:00; Stop 12/19/17 at 08:14; Status DC Zolpidem Tartrate (Ambien) 5 mg PRN QHS PRN PO INSOMNIA; Start 12/18/17 at 09: 00; Stop 12/18/17 at 12:08; Status DC Cetirizine HCl (ZyrTEC) 10 mg DAILY PO ; Start 12/18/17 at 10:00; Stop 12/18/17 at 12:08; Status DC Non-Formulary Medication 1 ea 1X ONCE IV ; Start 12/18/17 at 09:00; Stop at 09:01; Status UNV Potassium Chloride/Dextrose/ Sod Cl 1,000 ml @ 80 mls/hr [id number] IV Last administered on 12/19/17at 10:00; Start 12/18/17 at 09:00; Stop 12/20/17 at 09:07 ; Status DC Albuterol Sulfate (Ventolin Neb Soln) 2.5 mg PRN Q6HRS PRN NEB SHORTNESS OF BREATH Last administered on 12/27/17at 19:26; Start 12/18/17 at 09:30 Iohexol (Omnipaque 300 Mg/ml) 75 ml 1X ONCE IV Last administered on 12/18/17at 10:31; Start 12/18/17 at 10:15; Stop 12/18/17 at 10:16; Status DC Info (CONTRAST GIVEN -- Rx MONITORING) 1 each PRN DAILY PRN MC SEE COMMENTS; Start 12/18/17 at 10:15; Stop 12/20/17 at 10:14; Status DC Levothyroxine Sodium 15 mcg/ Sodium Chloride 5 ml @ 100 mls/hr DAILY IVP Last administered on 12/20/17at 09:41; Start 12/18/17 at 12:30; Stop 12/20/17 at 11:44 ; Status DC Lorazepam (Ativan) 1 mg PRN Q4HRS PRN IV ANXIETY / AGITATION Last administered on 12/29/17at 03:54; Start 12/18/17 at 13:15 Alprazolam (Xanax) 0.25 mg PRN Q8HRS PRN NG ANXIETY / AGITATION Last administered on 12/19/17at 01:13; Start 12/18/17 at 13:15; Stop 12/19/17 at 16:23 ; Status DC Pyridostigmine [place] (Mestinon) 60 mg BID NG Last administered on 12/18/17at 21:01; Start 12/18/17 at 13:00; Stop 12/19/17 at 16:23; Status DC Prednisone (Prednisone) 50 mg DAILY PO Last administered on 12/18/17at 16:03; Start 12/18/17 at 13:00; Stop 12/19/17 at 16:23; Status DC Famotidine (Pepcid) 20 mg QHS PO Last administered on 12/18/17at 21:01; Start at 21:00; Stop 12/19/17 at 16:23; Status DC Calcium Carbonate/ Glycine (Oscal) 500 mg TIDAFTMEAL PO ; Start 12/18/17 at 18: 00; Stop 12/19/17 at 16:23; Status DC Ergocalciferol (Vitamin D2) 50,000 unit MoTh PO ; Start 12/19/17 at 09:00; Stop 12/19/17 at 16:23; Status DC Lidocaine/Sodium Bicarbonate (Buffered Lidocaine 1%) 3 ml STK-MED ONCE .ROUTE ; Start 12/18/17 at 14:32; Stop 12/18/17 at 14:33; Status DC Heparin Sodium (Porcine) (Heparin Sodium) 10,000 unit STK-MED ONCE .ROUTE ; Start 12/18/17 at 14:32; Stop 12/18/17 at 14:33; Status DC Lidocaine/Sodium Bicarbonate (Buffered Lidocaine 1%) 3 ml 1X ONCE INJ Last administered on 12/18/17at 15:15; Start 12/18/17 at 15:15; Stop 12/18/17 at 15:16 ; Status DC Heparin Sodium (Porcine) (Heparin Sodium) 2,200 unit 1X ONCE INT CAT Last administered on 12/18/17at 15:15; Start 12/18/17 at 15:15; Stop 12/18/17 at 15:16 ; Status DC Scopolamine (Transderm-Scop) 1 patch 1X ONCE TD Last administered on at 21:41; Start 12/18/17 at 21:30; Stop 12/19/17 at 16:23; Status DC Albumin Human 1,500 ml @ 0 mls/hr 1X ONCE IV Last administered on 12/19/17at 11:38; Start 12/19/17 at 08:15; Stop 12/19/17 at 08:16; Status DC Heparin Sodium (Porcine) (Heparin Sodium) 10,000 unit STK-MED ONCE .ROUTE ; Start 12/19/17 at 08:40; Stop 12/19/17 at 08:41; Status DC Info (Tpn Per Pharmacy) 1 each PRN DAILY PRN MC SEE COMMENTS Last administered on 12/27/17at 13:11; Start 12/20/17 at 16:30 Pyridostigmine [place] (Regonol) 2.5 mg Q12HR IV Last administered on at 09:56; Start 12/19/17 at 21:00; Stop 12/26/17 at 15:52; Status DC Methylprednisolone Sodium Succinate (SOLU-Medrol 40MG VIAL) 40 mg Q12HR IV Last administered on 12/28/17at 19:51; Start 12/19/17 at 21:00 Famotidine (Pepcid Vial) 20 mg QHS IVP Last administered on 12/19/17at 21:33; Start 12/19/17 at 21:00; Stop 12/20/17 at 11:44; Status DC Morphine Sulfate (Morphine Sulfate) 2 mg PRN Q2HR PRN IV MODERATE TO SEVERE PAIN Last administered on 12/29/17at 06:36; Start 12/19/17 at 23:15 Amino Acids/ Glycerin/ Electrolytes 1,000 ml @ 80 mls/hr [id number] IV Last administered on 12/20/17at 09:57; Start 12/20/17 at 09:30; Stop 12/20/17 at 11:44 ; Status DC Alteplase, Recombinant (Cathflo) 2 mg 1X ONCE IV Last administered on at 12:37; Start 12/20/17 at 11:45; Stop 12/20/17 at 11:46; Status DC Cyclobenzaprine HCl (Flexeril) 5 mg QID PO Last administered on 12/21/17at 09:10 ; Start 12/20/17 at 17:00 Cyclobenzaprine HCl (Flexeril) 10 mg 1X ONCE PO ; Start 12/20/17 at 11:45; Stop 12/20/17 at 11:53; Status DC Levothyroxine Sodium (Synthroid) 25 mcg DAILY07 PO ; Start 12/21/17 at 07:00; Stop 12/21/17 at 07:00; Status DC Levothyroxine Sodium 12.5 mcg/ Sodium Chloride 5 ml @ 100 mls/hr DAILY IVP Last administered on 12/28/17at 08:55; Start 12/21/17 at 09:00 Sodium Chloride 90 meq/Potassium Chloride 50 meq/ Potassium Phosphate 13.6 mmol/ Magnesium Sulfate 5 meq/ Calcium Gluconate 5 meq/ Multivitamins 10 ml/Chromium/ Copper/Manganese/ Seleni/Zn 1 ml/ Total Parenteral Nutrition/Amino Acids/ Dextrose/ Fat Emulsion Intravenous 1,512 ml @ 63 mls/hr TPN CONT IV Last administered on 12/20/17at 20:58; Start 12/20/17 at 22:00; Stop 12/21/17 at 21:59 ; Status DC Albumin Human 1,200 ml @ 0 mls/hr 1X ONCE IV Last administered on 12/21/17at 10:40; Start 12/21/17 at 08:45; Stop 12/21/17 at 08:46; Status DC Heparin Sodium (Porcine) (Heparin Sodium) 10,000 unit STK-MED ONCE .ROUTE ; Start 12/21/17 at 08:50; Stop 12/21/17 at 08:51; Status DC Diphenhydramine HCl (Benadryl) 50 mg STK-MED ONCE .ROUTE ; Start 12/21/17 at 11: 46; Stop 12/21/17 at 11:47; Status DC Diphenhydramine HCl (Benadryl) 50 mg 1X ONCE IVP Last administered on at 11:59; Start 12/21/17 at 12:00; Stop 12/21/17 at 12:01; Status DC Sodium Chloride 90 meq/Potassium Chloride 50 meq/ Potassium Phosphate 13.6 mmol/ Magnesium Sulfate 5 meq/ Calcium Gluconate 5 meq/ Multivitamins 10 ml/Chromium/ Copper/Manganese/ Seleni/Zn 1 ml/ Total Parenteral Nutrition/Amino Acids/ Dextrose/ Fat Emulsion Intravenous 1,512 ml @ 63 mls/hr TPN CONT IV Last administered on 12/21/17at 22:00; Start 12/21/17 at 22:00; Stop 12/22/17 at 21:59 ; Status DC Sodium Chloride 90 meq/Potassium Chloride 50 meq/ Potassium Phosphate 13.6 mmol/ Magnesium Sulfate 5 meq/ Calcium Gluconate 5 meq/ Multivitamins 10 ml/Chromium/ Copper/Manganese/ Seleni/Zn 1 ml/ Total Parenteral Nutrition/Amino Acids/ Dextrose/ Fat Emulsion Intravenous 1,512 ml @ 63 mls/hr TPN CONT IV Last administered on 12/22/17at 21:26; Start 12/22/17 at 22:00; Stop 12/23/17 at 21:59 ; Status DC Famotidine (Pepcid Vial) 20 mg QHS IVP Last administered on 12/28/17at 19:51; Start 12/23/17 at 21:00 Sodium Chloride 90 meq/Potassium Chloride 50 meq/ Potassium Phosphate 13.6 mmol/ Magnesium Sulfate 5 meq/ Calcium Gluconate 5 meq/ Multivitamins 10 ml/Chromium/ Copper/Manganese/ Seleni/Zn 1 ml/ Total Parenteral Nutrition/Amino Acids/ Dextrose/ Fat Emulsion Intravenous 1,512 ml @ 63 mls/hr TPN CONT IV Last administered on 12/23/17at 21:10; Start 12/23/17 at 22:00; Stop 12/24/17 at 21:59 ; Status DC Diphenhydramine HCl (Benadryl) 50 mg 1X ONCE IVP Last administered on at 17:33; Start 12/23/17 at 12:00; Stop 12/23/17 at 12:23; Status DC Albumin Human 1,500 ml @ 125 mls/hr 1X ONCE IV Last administered on at 17:34; Start 12/23/17 at 12:30; Stop 12/24/17 at 00:29; Status DC Heparin Sodium (Porcine) (Heparin Sodium) 10,000 unit STK-MED ONCE .ROUTE ; Start 12/23/17 at 14:57; Stop 12/23/17 at 14:58; Status DC Oxycodone/ Acetaminophen (Percocet 5/325) 1 tab PRN Q6HRS PRN PO PAIN; Start 12/23/17 at 20:45; Status Cancel Sodium Chloride 90 meq/Potassium Chloride 50 meq/ Potassium Phosphate 13.6 mmol/ Magnesium Sulfate 5 meq/ Calcium Gluconate 5 meq/ Multivitamins 10 ml/Chromium/ Copper/Manganese/ Seleni/Zn 1 ml/ Total Parenteral Nutrition/Amino Acids/ Dextrose/ Fat Emulsion Intravenous 1,512 ml @ 63 mls/hr TPN CONT IV Last administered on 12/24/17at 21:11; Start 12/24/17 at 22:00; Stop 12/25/17 at 21:59 ; Status DC Calcium Gluconate 2000 mg/Dextrose 120 ml @ 220 mls/hr 1X ONCE IV Last administered on 12/25/17at 09:51; Start 12/25/17 at 10:00; Stop 12/25/17 at 10:32 ; Status DC Diphenhydramine HCl (Benadryl) 50 mg 1X ONCE IVP Last administered on at 14:16; Start 12/25/17 at 09:30; Stop 12/25/17 at 09:31; Status DC Heparin Sodium (Porcine) (Heparin Sodium) 3,000 unit 1X ONCE IV Last administered on 12/25/17at 09:15; Start 12/25/17 at 09:15; Stop 12/25/17 at 09:16 ; Status DC Albumin Human 1,500 ml @ 0 mls/hr 1X ONCE IV Last administered on 12/25/17at 14:19; Start 12/25/17 at 10:45; Stop 12/25/17 at 10:46; Status DC Albumin Human 200 ml @ 0 mls/hr 1X ONCE IV ; Start 12/25/17 at 10:45; Stop 12/25/17 at 10:46; Status DC Heparin Sodium (Porcine) (Heparin Sodium) 10,000 unit STK-MED ONCE .ROUTE ; Start 12/25/17 at 12:39; Stop 12/25/17 at 12:40; Status DC Insulin Human Lispro (HumaLOG) 0-5 UNITS TIDWMEALS SQ Last administered on 12/28at 16:31; Start 12/25/17 at 17:00 Dextrose (Dextrose 50%-Water Syringe) 12.5 gm PRN Q15MIN PRN IV SEE COMMENTS; Start 12/25/17 at 13:30 Sodium Chloride 90 meq/Potassium Chloride 50 meq/ Potassium Phosphate 13.6 mmol/ Magnesium Sulfate 5 meq/ Calcium Gluconate 5 meq/ Multivitamins 10 ml/Chromium/ Copper/Manganese/ Seleni/Zn 1 ml/ Total Parenteral Nutrition/Amino Acids/ Dextrose/ Fat Emulsion Intravenous 1,512 ml @ 63 mls/hr TPN CONT IV Last administered on 12/25/17at 21:42; Start 12/25/17 at 22:00; Stop 12/26/17 at 21:59 ; Status DC Barium Sulfate ([place] Thin Liquid [place]) 148 gm 1X ONCE PO Last administered on 12/26/17at 13:57; Start 12/26/17 at 12:00; Stop 12/26/17 at 12:01 ; Status DC Sodium Chloride 90 meq/Potassium Chloride 50 meq/ Potassium Phosphate 13.6 mmol/ Magnesium Sulfate 5 meq/ Calcium Gluconate 5 meq/ Multivitamins 10 ml/Chromium/ Copper/Manganese/ Seleni/Zn 1 ml/ Total Parenteral Nutrition/Amino Acids/ Dextrose/ Fat Emulsion Intravenous 1,512 ml @ 63 mls/hr TPN CONT IV Last administered on 12/26/17at 21:37; Start 12/26/17 at 22:00; Stop 12/27/17 at 21:59 ; Status DC Vitamin A/Vitamin D (Vitamin A & D Ointment) 1 lila PRN Q1HR PRN TP SKIN PROTECTION Last administered on 12/26/17at 17:42; Start 12/26/17 at 14:15 Pyridostigmine [place] (Regonol) 2.5 mg Q8H IV Last administered on 12/29/17at 00:32; Start 12/26/17 at 17:00 Calcium Gluconate 2000 mg/Dextrose 120 ml @ 220 mls/hr 1X ONCE IV ; Start 12/27/17 at 12:30; Stop 12/27/17 at 13:02; Status DC Sodium Chloride 90 meq/Potassium Chloride 50 meq/ Potassium Phosphate 13.6 mmol/ Magnesium Sulfate 5 meq/ Calcium Gluconate 5 meq/ Multivitamins 10 ml/Chromium/ Copper/Manganese/ Seleni/Zn 1 ml/ Total Parenteral Nutrition/Amino Acids/ Dextrose/ Fat Emulsion Intravenous 1,512 ml @ 63 mls/hr TPN CONT IV Last administered on 12/27/17at 23:26; Start 12/27/17 at 22:00; Stop 12/28/17 at 21:59 ; Status DC Albumin Human 1,500 ml @ 0 mls/hr 1X ONCE IV ; Start 12/27/17 at 15:00; Stop 12/27/17 at 15:01; Status DC Sodium Chloride 1,000 ml @ 1,000 mls/hr Q1H ONCE IV ; Start 12/27/17 at 14:30; Stop 12/27/17 at 15:29; Status DC Diphenhydramine HCl (Benadryl) 50 mg 1X ONCE IVP Last administered on at 16:43; Start 12/27/17 at 14:30; Stop 12/27/17 at 14:34; Status DC Heparin Sodium (Porcine) (Heparin Sodium) 10,000 unit STK-MED ONCE .ROUTE ; Start 12/27/17 at 14:42; Stop 12/27/17 at 14:43; Status DC Sodium Chloride 90 meq/Potassium Chloride 50 meq/ Potassium Phosphate 13.6 mmol/ Magnesium Sulfate 5 meq/ Calcium Gluconate 5 meq/ Multivitamins 10 ml/Chromium/ Copper/Manganese/ Seleni/Zn 1 ml/ Total Parenteral Nutrition/Amino Acids/ Dextrose/ Fat Emulsion Intravenous 1,512 ml @ 63 mls/hr TPN CONT IV Last administered on 12/28/17at 22:03; Start 12/28/17 at 22:00; Stop 12/29/17 at 21:59 Active Scripts Active Reported Amoxicillin 875 Mg Tablet 1 Tab PO BID Levothyroxine Sodium 25 Mcg Tablet 1 Tab PO DAILY Proair Hfa Inhaler (Albuterol Sulfate) 8.5 Gm Hfa.aer.ad 1 Puff INH PRN Q6HRS PRN [kaitlib fe] Hydrocodone-Apap 7.5-325/15 Soln (Hydrocodone Bit/Acetaminophen) 15 Ml Solution 15 Ml PO PRN Q4HRS PRN Prednisone 50 Mg Tablet 1 Tab PO DAILY Fluticasone Propionate Nasal [place] (Fluticasone Propionate) 16 Gm [place].susp 1 [place] NS DAILY [zoloft] [ativan] Vitals/I & O Vital Sign - Last 24 Hours 12/28/17 12/28/17 12/28/17 12/28/17 11:00 11:04 15:00 16:32 Temp 96.4 96.6 96.4 96.6 Pulse 74 93 Resp 18 18 B/P (MAP) 139/77 (97) 135/85 (102) Pulse Ox 96 97 O2 Delivery Room Air Room Air Room Air Room Air 12/28/17 12/28/17 12/28/17 12/28/17 19:25 20:00 22:15 23:42 Temp 97.7 98.0 97.7 98.0 Pulse 92 93 Resp 18 18 B/P (MAP) 143/83 (103) 140/78 (98) Pulse Ox 97 98 O2 Delivery Room Air Room Air Room Air Room Air 12/29/17 12/29/17 12/29/17 12/29/17 00:32 03:15 03:53 04:23 Temp 98.1 98.1 Pulse 72 Resp 18 B/P (MAP) 127/74 (91) Pulse Ox 97 O2 Delivery Room Air Room Air Room Air Room Air 12/29/17 12/29/17 06:36 07:00 Temp 98.0 98.0 Pulse 68 Resp 16 B/P (MAP) 134/90 (105) Pulse Ox 97 O2 Delivery Room Air Room Air Intake and Output 12/28/17 12/28/17 12/29/17 15:00 23:00 07:00 Intake Total 0 ml 0 ml Balance 0 ml 0 ml SINDY SANTILLAN MD Dec 29, 2017 08:38
[2017-12-29] MEDS: CYCLOBENZAPRINE 10 MG TABLET. PO SCH ×2 (09:00→09:58)
[2017-12-29] MEDS: FLUTICASONE 50MCG/NASAL SPRAY 16GM BOTTLE. NS SCH (09:59)
[2017-12-29] MEDS: NORMAL SALINE IVP SCH (10:00)
[2017-12-29] MEDS: LEVOTHYROXINE SODIUM IVP SCH (10:00)
[2017-12-29] MEDS: methylPREDNISolone SOD SUCC PF 40 MG/ML VIAL. IV SCH ×2 (10:01→19:59)
[2017-12-29] MEDS: INSULIN LISPRO 300 UNITS/3 ML INSULN.PEN. SQ SCH ×2 (10:30→17:45)
[2017-12-29 11:00] VITALS: BP 142/93
[2017-12-29] MEDS ORDERED: diphenhydrAMINE 50 MG/ML VIAL IV ONE (11:15)
[2017-12-29] MEDS ORDERED: ALBUMIN HUMAN 5% 1,000 ML IV ONE (11:15)
[2017-12-29] MEDS ORDERED: CALCIUM GLUCONATE 1,000 MG/10 ML VIAL. IV ONE (11:15)
[2017-12-29] MEDS: TPN PER PHARMACY MC PRN (12:35)
--- NOTE | 2017-12-29 13:57 | PDOC ---
SUBJECTIVE ROS Seen on Plasmapheresis, tolerating well OBJECTIVE Vital Signs Vital Signs Date Time Temp Pulse Resp B/P (MAP) Pulse Ox O2 Delivery O2 Flow Rate FiO2 12/29/17 12:41 97 Room Air 12/29/17 11:00 98.1 77 16 142/93 (109) 98.1 I & 0 Intake and Output 12/29/17 07:00 Intake Total 0 ml Balance 0 ml Tube Feeding 0 ml # Voids 6 PHYSICAL EXAM Physical Exam Gen-- NAD HEENT- OM moist Neuro-- as per neurology Lungs CTA Bilat CV RRR Abdomen -Soft , NT DIAGNOSIS/ASSESSMENT Assessment & Plan Myasthenia gravis- on steroids and 6 th plasmaphereses today continue as Ordered As per neuro, Myasthenia serology is positive, Plasmapheresis QOD, now plan on continuing through 01/[address] negative for thymoma Hypocalcemia- replace 1 gm today Decreased Fibrinogen- FFP with TPE Eze's thyroiditis Anxiety disorder COMMENT/RELEVANT DATA Meds Current Medications Medications (Trade) Dose Ordered Sig/Guido Start Time Stop Time Status Last Admin Dose Admin Acetaminophen (Tylenol) 500 mg PRN Q6HRS PRN 12/18/17 09:00 Acetaminophen/ Codeine Phosphate (Tylenol #3) 1 tab PRN Q6HRS PRN 12/18/17 09:00 12/18/17 12:08 DC Acetaminophen/ Hydrocodone Bitart (Lortab 7.5-325/ 15ml Oral Solution) 15 ml PRN Q4HRS PRN 12/18/17 09:00 12/19/17 16:23 DC Albumin Human 1,000 ml @ 0 mls/hr 1X ONCE 12/29/17 11:15 12/29/17 11:16 DC Albuterol Sulfate (Ventolin Neb Soln) 2.5 mg PRN Q6HRS PRN 12/18/17 09:30 12/27/17 19:26 2.5 MG Alprazolam (Xanax) 0.25 mg PRN Q8HRS PRN 12/18/17 13:15 12/19/17 16:23 DC 12/19/17 01:13 0.25 MG Alteplase, Recombinant (Cathflo) 2 mg 1X ONCE 12/20/17 11:45 12/20/17 11:46 DC 12/20/17 12:37 2 MG Amino Acids/ Glycerin/ Electrolytes 1,000 ml @ 80 mls/hr [id number] 12/20/17 09:30 12/20/17 11:44 DC 12/20/17 09:57 80 MLS/HR Amoxicillin (Amoxil) 750 mg BID 12/18/17 10:00 12/19/17 16:23 DC 12/18/17 21:02 750 MG Barium Sulfate (Varibar Thin Liquid Apple) 148 gm 1X ONCE 12/26/17 12:00 12/26/17 12:01 DC 12/26/17 13:57 148 GM Calcium Carbonate/ Glycine (Oscal) 500 mg [id number] 12/18/17 18:00 12/19/17 16:23 DC Calcium Gluconate (Calcium Gluconate) 1,000 mg 1X ONCE 12/29/17 11:15 12/29/17 11:16 DC Calcium Gluconate 2000 mg/Dextrose 120 ml @ 220 mls/hr 1X ONCE 12/27/17 12:30 12/27/17 13:02 DC Cetirizine HCl (ZyrTEC) 10 mg DAILY 12/18/17 10:00 12/18/17 12:08 DC Cyclobenzaprine HCl (Flexeril) 10 mg 1X ONCE 12/20/17 11:45 12/20/17 11:53 DC Dextrose (Dextrose 50%-Water Syringe) 12.5 gm PRN Q15MIN PRN 12/25/17 13:30 Diphenhydramine HCl (Benadryl) 25 mg 1X ONCE 12/29/17 11:15 12/29/17 11:16 DC Ergocalciferol (Vitamin D2) 50,000 unit MoTh 12/19/17 09:00 12/19/17 16:23 DC Famotidine (Pepcid Vial) 20 mg QHS 12/23/17 21:00 12/28/17 19:51 20 MG Famotidine (Pepcid) 20 mg QHS 12/18/17 21:00 12/19/17 16:23 DC 12/18/17 21:01 20 MG Fluticasone Propionate (Flonase) 1 spray DAILY 12/18/17 09:00 12/29/17 09:59 1 SPRAY Heparin Sodium (Porcine) (Heparin Sodium) 10,000 unit STK-MED ONCE 12/27/17 14:42 12/27/17 14:43 DC Ibuprofen (Motrin) 600 mg PRN Q6HRS PRN 12/18/17 09:00 12/19/17 16:23 DC Info (CONTRAST GIVEN -- Rx MONITORING) 1 each PRN DAILY PRN 12/18/17 10:15 12/20/17 10:14 DC Info (Tpn Per Pharmacy) 1 each PRN DAILY PRN 12/20/17 16:30 12/29/17 12:35 1 EACH Insulin Human Lispro (HumaLOG) 0-5 UNITS Q6HRS 12/29/17 18:00 Iohexol (Omnipaque 300 Mg/ml) 75 ml 1X ONCE 12/18/17 10:15 12/18/17 10:16 DC 12/18/17 10:31 75 ML Ketorolac Tromethamine (Toradol 15mg Vial) 15 mg 1X ONCE 12/17/17 20:15 12/17/17 20:16 DC 12/17/17 20:36 15 MG Levothyroxine Sodium (Synthroid) 25 mcg DAILY07 12/21/17 07:00 12/21/17 07:00 DC Levothyroxine Sodium 12.5 mcg/ Sodium Chloride 5 ml @ 100 mls/hr DAILY 12/21/17 09:00 12/29/17 10:00 100 MLS/HR Levothyroxine Sodium 15 mcg/ Sodium Chloride 5 ml @ 100 mls/hr DAILY 12/18/17 12:30 12/20/17 11:44 DC 12/20/17 09:41 100 MLS/HR Lidocaine/Sodium Bicarbonate (Buffered Lidocaine 1%) 3 ml 1X ONCE 12/18/17 15:15 12/18/17 15:16 DC 12/18/17 15:15 4 ML Lorazepam (Ativan) 1 mg PRN Q4HRS PRN 12/18/17 13:15 12/29/17 10:19 1 MG Meclizine HCl (Antivert) 25 mg 1X ONCE 12/17/17 20:00 12/17/17 20:01 DC 12/17/17 20:00 25 MG Methylprednisolone Sodium Succinate (SOLU-Medrol 40MG VIAL) 40 mg Q12HR 12/19/17 21:00 12/29/17 10:01 40 MG Mirtazapine (Remeron) 15 mg QHS 12/29/17 21:00 Morphine Sulfate (Morphine Sulfate) 2 mg PRN Q2HR PRN 12/19/17 23:15 12/29/17 10:19 2 MG Non-Formulary Medication 1 ea 1X ONCE 12/18/17 09:00 12/18/17 09:01 UNV Non-Formulary Medication (Albuterol Sulfate (Proair Hfa Inhaler)) 1 puff PRN Q6HRS PRN 12/18/17 09:00 UNV Ondansetron HCl (Zofran Odt) 4 mg PRN Q6HRS PRN 12/18/17 09:00 12/18/17 12:08 DC Ondansetron HCl (Zofran) 4 mg PRN Q6HRS PRN 12/18/17 09:00 12/27/17 14:48 4 MG Oxycodone/ Acetaminophen (Percocet 5/325) 1 tab PRN Q6HRS PRN 12/23/17 20:45 Cancel Potassium Chloride/Dextrose/ Sod Cl 1,000 ml @ 80 mls/hr [id number] 12/18/17 09:00 12/20/17 09:07 DC 12/19/17 10:00 80 MLS/HR Prednisone (Prednisone) 50 mg DAILY 12/18/17 13:00 12/19/17 16:23 DC 12/18/17 16:03 50 MG Pyridostigmine [place] (Mestinon) 60 mg BID 12/18/17 13:00 12/19/17 16:23 DC 12/18/17 21:01 60 MG Pyridostigmine [place] (Regonol) 2.5 mg Q8H 12/26/17 17:00 12/29/17 10:01 2.5 MG Scopolamine (Transderm-Scop) 1 patch 1X ONCE 12/18/17 21:30 12/19/17 16:23 DC 12/18/17 21:41 1 PATCH Sodium Chloride 90 meq/Potassium Chloride 50 meq/ Potassium Phosphate 13.6 mmol/Magnesium Sulfate 5 meq/ Calcium Gluconate 5 meq/ Multivitamins 10 ml/Chromium/ Copper/Manganese/ Seleni/Zn 1 ml/ Total Parenteral Nutrition/Amino Acids/Dextrose/ Fat Emulsion Intravenous 1,512 ml @ 63 mls/hr TPN CONT 12/29/17 22:00 12/30/17 21:59 Vitamin A/Vitamin D (Vitamin A & D Ointment) 1 lila PRN Q1HR PRN 12/26/17 14:15 12/26/17 17:42 1 LILA Zolpidem Tartrate (Ambien) 5 mg PRN QHS PRN 12/18/17 09:00 12/18/17 12:08 DC Lab Laboratory Tests Test 12/28/17 16:22 12/29/17 00:33 12/29/17 04:00 12/29/17 06:20 Glucose (Fingerstick) 185 mg/dL (70-99) 228 mg/dL (70-99) 202 mg/dL (70-99) Sodium Level 139 mmol/L (136-145) Potassium Level 4.3 mmol/L (3.5-5.1) Chloride Level 103 mmol/L (98-107) Carbon Dioxide Level 32 mmol/L (21-32) Anion Gap 4 (6-14) Blood Urea Nitrogen 21 mg/dL (7-20) Creatinine 0.5 mg/dL (0.6-1.0) Estimated GFR (Cockcroft-Gault) 152.9 BUN/Creatinine Ratio 42 (6-20) Glucose Level 226 mg/dL (70-99) Calcium Level 8.5 mg/dL (8.5-10.1) Total Bilirubin 0.5 mg/dL (0.2-1.0) Aspartate Amino Transf (AST/SGOT) 39 U/L (15-37) Alanine Aminotransferase (ALT/SGPT) 145 U/L (14-59) Alkaline Phosphatase 37 U/L (46-116) Total Protein 5.2 g/dL (6.4-8.2) Albumin 3.2 g/dL (3.4-5.0) Albumin/Globulin Ratio 1.6 (1.0-1.7) Test 12/29/17 12:01 Glucose (Fingerstick) 159 mg/dL (70-99) Results All relevant outside records, renal labs, imaging studies, telemetry/EKG's were reviewed. THERESA TOLBERT MD Dec 29, 2017 13:57
[2017-12-29] MEDS: ONDANSETRON PF 4 MG/2 ML VIAL. IV PRN (18:46)
[2017-12-29 19:34] VITALS: BP 115/75
[2017-12-29] MEDS: MIRTAZAPINE 15 MG TABLET PO SCH (19:51)
[2017-12-29] MEDS: FAMOTIDINE 20 MG/2 ML VIAL IVP SCH (19:59)
[2017-12-29] MEDS ORDERED: DEXTROSE 70% IV SCH ×10 (22:00)
[2017-12-29] MEDS ORDERED: [UNRECOGNIZED DRUG - OTHER] IV SCH ×10 (22:00)
[2017-12-29] MEDS ORDERED: AMINO ACIDS IV SCH ×10 (22:00)
[2017-12-29] MEDS ORDERED: TOTAL PARENTERAL NUTRITION IV SCH ×10 (22:00)
[2017-12-29] MEDS: diphenhydrAMINE 50 MG/ML VIAL IVP PRN (22:04)
--- NOTE | 2017-12-29 22:07 | PDOC ---
PROGRESS NOTES Assessment Problems Medical Problems: (1) Diplopia Status: Acute She is not currently complaining of diplopia. (2) Marijuana abuse Status: Acute (3) Myasthenia gravis with acute exacerbation Status: Acute She is receiving plasmapheresis every other day. She had a treatment today which she has tolerated well. She is not feeling short of breath. She feels she is able to move her right arm slightly better. She is not having any difficulty with walking. She is able to eat more ice chips. She talked a great deal today and had visitors and is quite fatigued. (4) Neck muscle weakness Status: Acute (5) RUE weakness Status: Acute (6) Sinusitis Status: Acute Plan She will continue with the plasmapheresis as directed by Dr. Cheung. She will continue with intravenous steroids and switch to oral when she is able to swallow. If she is not able to swallow she will require alternative nutrition with the PEG. She will need speech therapy to assess her again tomorrow. She has developed a rash primarily on her back and bottom. This may be more of a contact dermatitis. I would anticipate a drug reaction would be diffuse. Subjective I'm feeling a little better. I had a lot of visitors and I talked a lot today so I am tired. I'm not having any double vision. I'm using a light weight for my right arm. I'm able to get up and walk around the room without difficulty. I think I'm eating more ice chips. Objective Vital Signs Date Time Temp Pulse Resp B/P (MAP) Pulse Ox O2 Delivery O2 Flow Rate FiO2 12/29/17 19:34 97.9 129 16 115/75 (88) 94 Room Air 97.9 Intake and Output 12/29/17 07:00 Intake Total 0 ml Balance 0 ml Tube Feeding 0 ml # Voids 6 PHYSICAL EXAM She was alert, awake and cooperative. Speech was nasal but was clear and fluent. She was able to interact and follow commands well. She was oriented. Cranial nerves II through XII are intact. The eyes were conjugate. Gaze did not produce fatigue of the eyelid or produce double vision. Muscle bulk and tone was normal. Power was full in the left upper extremity. There was weakness of the right upper extremity with elbow flexion and arm abduction 4+/5. Coordination testing and sensation was intact. She had a rash primarily on her back. Review of Relevant I have reviewed the following items maliha (where applicable) has been applied. Labs Laboratory Tests Test 12/28/17 00:51 12/28/17 06:59 12/28/17 11:51 12/28/17 13:00 Glucose (Fingerstick) 224 mg/dL (70-99) 201 mg/dL (70-99) 174 mg/dL (70-99) Sodium Level 140 mmol/L (136-145) Potassium Level 4.3 mmol/L (3.5-5.1) Chloride Level 104 mmol/L (98-107) Carbon Dioxide Level 32 mmol/L (21-32) Anion Gap 4 (6-14) Blood Urea Nitrogen 21 mg/dL (7-20) Creatinine 0.4 mg/dL (0.6-1.0) Estimated GFR (Cockcroft-Gault) 197.8 BUN/Creatinine Ratio 53 (6-20) Glucose Level 141 mg/dL (70-99) Calcium Level 8.3 mg/dL (8.5-10.1) Total Bilirubin 0.5 mg/dL (0.2-1.0) Aspartate Amino Transf (AST/SGOT) 26 U/L (15-37) Alanine Aminotransferase (ALT/SGPT) 96 U/L (14-59) Alkaline Phosphatase 34 U/L (46-116) Total Protein 5.2 g/dL (6.4-8.2) Albumin 3.4 g/dL (3.4-5.0) Albumin/Globulin Ratio 1.9 (1.0-1.7) Test 12/28/17 16:22 12/29/17 00:33 12/29/17 04:00 12/29/17 06:20 Glucose (Fingerstick) 185 mg/dL (70-99) 228 mg/dL (70-99) 202 mg/dL (70-99) Sodium Level 139 mmol/L (136-145) Potassium Level 4.3 mmol/L (3.5-5.1) Chloride Level 103 mmol/L (98-107) Carbon Dioxide Level 32 mmol/L (21-32) Anion Gap 4 (6-14) Blood Urea Nitrogen 21 mg/dL (7-20) Creatinine 0.5 mg/dL (0.6-1.0) Estimated GFR (Cockcroft-Gault) 152.9 BUN/Creatinine Ratio 42 (6-20) Glucose Level 226 mg/dL (70-99) Calcium Level 8.5 mg/dL (8.5-10.1) Total Bilirubin 0.5 mg/dL (0.2-1.0) Aspartate Amino Transf (AST/SGOT) 39 U/L (15-37) Alanine Aminotransferase (ALT/SGPT) 145 U/L (14-59) Alkaline Phosphatase 37 U/L (46-116) Total Protein 5.2 g/dL (6.4-8.2) Albumin 3.2 g/dL (3.4-5.0) Albumin/Globulin Ratio 1.6 (1.0-1.7) Test 12/29/17 12:01 12/29/17 17:39 Glucose (Fingerstick) 159 mg/dL (70-99) 234 mg/dL (70-99) Laboratory Tests Test 12/29/17 00:33 12/29/17 04:00 12/29/17 06:20 12/29/17 12:01 Glucose (Fingerstick) 228 mg/dL (70-99) 202 mg/dL (70-99) 159 mg/dL (70-99) Sodium Level 139 mmol/L (136-145) Potassium Level 4.3 mmol/L (3.5-5.1) Chloride Level 103 mmol/L (98-107) Carbon Dioxide Level 32 mmol/L (21-32) Anion Gap 4 (6-14) Blood Urea Nitrogen 21 mg/dL (7-20) Creatinine 0.5 mg/dL (0.6-1.0) Estimated GFR (Cockcroft-Gault) 152.9 BUN/Creatinine Ratio 42 (6-20) Glucose Level 226 mg/dL (70-99) Calcium Level 8.5 mg/dL (8.5-10.1) Total Bilirubin 0.5 mg/dL (0.2-1.0) Aspartate Amino Transf (AST/SGOT) 39 U/L (15-37) Alanine Aminotransferase (ALT/SGPT) 145 U/L (14-59) Alkaline Phosphatase 37 U/L (46-116) Total Protein 5.2 g/dL (6.4-8.2) Albumin 3.2 g/dL (3.4-5.0) Albumin/Globulin Ratio 1.6 (1.0-1.7) Test 12/29/17 17:39 Glucose (Fingerstick) 234 mg/dL (70-99) Medications Current Medications Meclizine HCl (Antivert) 25 mg 1X ONCE PO Last administered on 12/17/17at 20:00 ; Start 12/17/17 at 20:00; Stop 12/17/17 at 20:01; Status DC Sodium Chloride 1,000 ml @ 1,000 mls/hr 1X ONCE IV Last administered on at 20:35; Start 12/17/17 at 20:15; Stop 12/17/17 at 21:14; Status DC Ketorolac Tromethamine (Toradol 15mg Vial) 15 mg 1X ONCE IV Last administered on 12/17/17at 20:36; Start 12/17/17 at 20:15; Stop 12/17/17 at 20:16; Status DC Diphenhydramine HCl (Benadryl) 25 mg 1X ONCE PO Last administered on at 02:16; Start 12/18/17 at 02:15; Stop 12/18/17 at 02:18; Status DC Acetaminophen (Tylenol) 500 mg PRN Q6HRS PRN PO MILD PAIN / TEMP; Start at 09:00 Acetaminophen/ Codeine Phosphate (Tylenol #3) 1 tab PRN Q6HRS PRN PO PAIN; Start 12/18/17 at 09:00; Stop 12/18/17 at 12:08; Status DC Ibuprofen (Motrin) 600 mg PRN Q6HRS PRN PO INFLAMMATION; Start 12/18/17 at 09: 00; Stop 12/19/17 at 16:23; Status DC Ondansetron HCl (Zofran) 4 mg PRN Q6HRS PRN IV NAUSEA/VOMITING Last administered on 12/29/17at 18:46; Start 12/18/17 at 09:00 Ondansetron HCl (Zofran Odt) 4 mg PRN Q6HRS PRN PO NAUSEA/VOMITING; Start 12/18 at 09:00; Stop 12/18/17 at 12:08; Status DC Fluticasone Propionate (Flonase) 1 spray DAILY NS Last administered on at 09:59; Start 12/18/17 at 09:00 Acetaminophen/ Hydrocodone Bitart (Lortab 7.5-325/ 15ml Oral Solution) 15 ml PRN Q4HRS PRN PO MODERATE PAIN; Start 12/18/17 at 09:00; Stop 12/19/17 at 16:23 ; Status DC Non-Formulary Medication (Albuterol Sulfate (Proair Hfa Inhaler)) 1 puff PRN Q6HRS PRN INH SHORTNESS OF BREATH; Start 12/18/17 at 09:00; Status UNV Amoxicillin (Amoxil) 750 mg BID PO Last administered on 12/18/17at 21:02; Start 12/18/17 at 10:00; Stop 12/19/17 at 16:23; Status DC Levothyroxine Sodium (Synthroid) 25 mcg DAILY07 PO ; Start 12/18/17 at 10:30; Stop 12/18/17 at 12:08; Status DC Prednisone (Prednisone) 50 mg DAILY PO ; Start 12/18/17 at 10:00; Stop 12/18/17 at 12:08; Status DC Alprazolam (Xanax) 0.25 mg PRN Q8HRS PRN PO ANXIETY / AGITATION; Start at 09:00; Stop 12/19/17 at 08:14; Status DC Zolpidem Tartrate (Ambien) 5 mg PRN QHS PRN PO INSOMNIA; Start 12/18/17 at 09: 00; Stop 12/18/17 at 12:08; Status DC Cetirizine HCl (ZyrTEC) 10 mg DAILY PO ; Start 12/18/17 at 10:00; Stop 12/18/17 at 12:08; Status DC Non-Formulary Medication 1 ea 1X ONCE IV ; Start 12/18/17 at 09:00; Stop at 09:01; Status UNV Potassium Chloride/Dextrose/ Sod Cl 1,000 ml @ 80 mls/hr [id number] IV Last administered on 12/19/17at 10:00; Start 12/18/17 at 09:00; Stop 12/20/17 at 09:07 ; Status DC Albuterol Sulfate (Ventolin Neb Soln) 2.5 mg PRN Q6HRS PRN NEB SHORTNESS OF BREATH Last administered on 12/27/17at 19:26; Start 12/18/17 at 09:30 Iohexol (Omnipaque 300 Mg/ml) 75 ml 1X ONCE IV Last administered on 12/18/17at 10:31; Start 12/18/17 at 10:15; Stop 12/18/17 at 10:16; Status DC Info (CONTRAST GIVEN -- Rx MONITORING) 1 each PRN DAILY PRN MC SEE COMMENTS; Start 12/18/17 at 10:15; Stop 12/20/17 at 10:14; Status DC Levothyroxine Sodium 15 mcg/ Sodium Chloride 5 ml @ 100 mls/hr DAILY IVP Last administered on 12/20/17at 09:41; Start 12/18/17 at 12:30; Stop 12/20/17 at 11:44 ; Status DC Lorazepam (Ativan) 1 mg PRN Q4HRS PRN IV ANXIETY / AGITATION Last administered on 12/29/17at 19:58; Start 12/18/17 at 13:15 Alprazolam (Xanax) 0.25 mg PRN Q8HRS PRN NG ANXIETY / AGITATION Last administered on 12/19/17at 01:13; Start 12/18/17 at 13:15; Stop 12/19/17 at 16:23 ; Status DC Pyridostigmine [place] (Mestinon) 60 mg BID NG Last administered on 12/18/17at 21:01; Start 12/18/17 at 13:00; Stop 12/19/17 at 16:23; Status DC Prednisone (Prednisone) 50 mg DAILY PO Last administered on 12/18/17at 16:03; Start 12/18/17 at 13:00; Stop 12/19/17 at 16:23; Status DC Famotidine (Pepcid) 20 mg QHS PO Last administered on 12/18/17at 21:01; Start at 21:00; Stop 12/19/17 at 16:23; Status DC Calcium Carbonate/ Glycine (Oscal) 500 mg TIDAFTMEAL PO ; Start 12/18/17 at 18: 00; Stop 12/19/17 at 16:23; Status DC Ergocalciferol (Vitamin D2) 50,000 unit MoTh PO ; Start 12/19/17 at 09:00; Stop 12/19/17 at 16:23; Status DC Lidocaine/Sodium Bicarbonate (Buffered Lidocaine 1%) 3 ml STK-MED ONCE .ROUTE ; Start 12/18/17 at 14:32; Stop 12/18/17 at 14:33; Status DC Heparin Sodium (Porcine) (Heparin Sodium) 10,000 unit STK-MED ONCE .ROUTE ; Start 12/18/17 at 14:32; Stop 12/18/17 at 14:33; Status DC Lidocaine/Sodium Bicarbonate (Buffered Lidocaine 1%) 3 ml 1X ONCE INJ Last administered on 12/18/17at 15:15; Start 12/18/17 at 15:15; Stop 12/18/17 at 15:16 ; Status DC Heparin Sodium (Porcine) (Heparin Sodium) 2,200 unit 1X ONCE INT CAT Last administered on 12/18/17at 15:15; Start 12/18/17 at 15:15; Stop 12/18/17 at 15:16 ; Status DC Scopolamine (Transderm-Scop) 1 patch 1X ONCE TD Last administered on at 21:41; Start 12/18/17 at 21:30; Stop 12/19/17 at 16:23; Status DC Albumin Human 1,500 ml @ 0 mls/hr 1X ONCE IV Last administered on 12/19/17at 11:38; Start 12/19/17 at 08:15; Stop 12/19/17 at 08:16; Status DC Heparin Sodium (Porcine) (Heparin Sodium) 10,000 unit STK-MED ONCE .ROUTE ; Start 12/19/17 at 08:40; Stop 12/19/17 at 08:41; Status DC Info (Tpn Per Pharmacy) 1 each PRN DAILY PRN MC SEE COMMENTS Last administered on 12/29/17at 12:35; Start 12/20/17 at 16:30 Pyridostigmine [place] (Regonol) 2.5 mg Q12HR IV Last administered on at 09:56; Start 12/19/17 at 21:00; Stop 12/26/17 at 15:52; Status DC Methylprednisolone Sodium Succinate (SOLU-Medrol 40MG VIAL) 40 mg Q12HR IV Last administered on 12/29/17at 19:59; Start 12/19/17 at 21:00 Famotidine (Pepcid Vial) 20 mg QHS IVP Last administered on 12/19/17at 21:33; Start 12/19/17 at 21:00; Stop 12/20/17 at 11:44; Status DC Morphine Sulfate (Morphine Sulfate) 2 mg PRN Q2HR PRN IV MODERATE TO SEVERE PAIN Last administered on 12/29/17at 19:02; Start 12/19/17 at 23:15 Amino Acids/ Glycerin/ Electrolytes 1,000 ml @ 80 mls/hr [id number] IV Last administered on 12/20/17at 09:57; Start 12/20/17 at 09:30; Stop 12/20/17 at 11:44 ; Status DC Alteplase, Recombinant (Cathflo) 2 mg 1X ONCE IV Last administered on at 12:37; Start 12/20/17 at 11:45; Stop 12/20/17 at 11:46; Status DC Cyclobenzaprine HCl (Flexeril) 5 mg QID PO Last administered on 12/21/17at 09:10 ; Start 12/20/17 at 17:00; Stop 12/29/17 at 11:33; Status DC Cyclobenzaprine HCl (Flexeril) 10 mg 1X ONCE PO ; Start 12/20/17 at 11:45; Stop 12/20/17 at 11:53; Status DC Levothyroxine Sodium (Synthroid) 25 mcg DAILY07 PO ; Start 12/21/17 at 07:00; Stop 12/21/17 at 07:00; Status DC Levothyroxine Sodium 12.5 mcg/ Sodium Chloride 5 ml @ 100 mls/hr DAILY IVP Last administered on 12/29/17at 10:00; Start 12/21/17 at 09:00 Sodium Chloride 90 meq/Potassium Chloride 50 meq/ Potassium Phosphate 13.6 mmol/ Magnesium Sulfate 5 meq/ Calcium Gluconate 5 meq/ Multivitamins 10 ml/Chromium/ Copper/Manganese/ Seleni/Zn 1 ml/ Total Parenteral Nutrition/Amino Acids/ Dextrose/ Fat Emulsion Intravenous 1,512 ml @ 63 mls/hr TPN CONT IV Last administered on 12/20/17at 20:58; Start 12/20/17 at 22:00; Stop 12/21/17 at 21:59 ; Status DC Albumin Human 1,200 ml @ 0 mls/hr 1X ONCE IV Last administered on 12/21/17at 10:40; Start 12/21/17 at 08:45; Stop 12/21/17 at 08:46; Status DC Heparin Sodium (Porcine) (Heparin Sodium) 10,000 unit STK-MED ONCE .ROUTE ; Start 12/21/17 at 08:50; Stop 12/21/17 at 08:51; Status DC Diphenhydramine HCl (Benadryl) 50 mg STK-MED ONCE .ROUTE ; Start 12/21/17 at 11: 46; Stop 12/21/17 at 11:47; Status DC Diphenhydramine HCl (Benadryl) 50 mg 1X ONCE IVP Last administered on at 11:59; Start 12/21/17 at 12:00; Stop 12/21/17 at 12:01; Status DC Sodium Chloride 90 meq/Potassium Chloride 50 meq/ Potassium Phosphate 13.6 mmol/ Magnesium Sulfate 5 meq/ Calcium Gluconate 5 meq/ Multivitamins 10 ml/Chromium/ Copper/Manganese/ Seleni/Zn 1 ml/ Total Parenteral Nutrition/Amino Acids/ Dextrose/ Fat Emulsion Intravenous 1,512 ml @ 63 mls/hr TPN CONT IV Last administered on 12/21/17at 22:00; Start 12/21/17 at 22:00; Stop 12/22/17 at 21:59 ; Status DC Sodium Chloride 90 meq/Potassium Chloride 50 meq/ Potassium Phosphate 13.6 mmol/ Magnesium Sulfate 5 meq/ Calcium Gluconate 5 meq/ Multivitamins 10 ml/Chromium/ Copper/Manganese/ Seleni/Zn 1 ml/ Total Parenteral Nutrition/Amino Acids/ Dextrose/ Fat Emulsion Intravenous 1,512 ml @ 63 mls/hr TPN CONT IV Last administered on 12/22/17at 21:26; Start 12/22/17 at 22:00; Stop 12/23/17 at 21:59 ; Status DC Famotidine (Pepcid Vial) 20 mg QHS IVP Last administered on 12/29/17at 19:59; Start 12/23/17 at 21:00 Sodium Chloride 90 meq/Potassium Chloride 50 meq/ Potassium Phosphate 13.6 mmol/ Magnesium Sulfate 5 meq/ Calcium Gluconate 5 meq/ Multivitamins 10 ml/Chromium/ Copper/Manganese/ Seleni/Zn 1 ml/ Total Parenteral Nutrition/Amino Acids/ Dextrose/ Fat Emulsion Intravenous 1,512 ml @ 63 mls/hr TPN CONT IV Last administered on 12/23/17at 21:10; Start 12/23/17 at 22:00; Stop 12/24/17 at 21:59 ; Status DC Diphenhydramine HCl (Benadryl) 50 mg 1X ONCE IVP Last administered on at 17:33; Start 12/23/17 at 12:00; Stop 12/23/17 at 12:23; Status DC Albumin Human 1,500 ml @ 125 mls/hr 1X ONCE IV Last administered on at 17:34; Start 12/23/17 at 12:30; Stop 12/24/17 at 00:29; Status DC Heparin Sodium (Porcine) (Heparin Sodium) 10,000 unit STK-MED ONCE .ROUTE ; Start 12/23/17 at 14:57; Stop 12/23/17 at 14:58; Status DC Oxycodone/ Acetaminophen (Percocet 5/325) 1 tab PRN Q6HRS PRN PO PAIN; Start 12/23/17 at 20:45; Status Cancel Sodium Chloride 90 meq/Potassium Chloride 50 meq/ Potassium Phosphate 13.6 mmol/ Magnesium Sulfate 5 meq/ Calcium Gluconate 5 meq/ Multivitamins 10 ml/Chromium/ Copper/Manganese/ Seleni/Zn 1 ml/ Total Parenteral Nutrition/Amino Acids/ Dextrose/ Fat Emulsion Intravenous 1,512 ml @ 63 mls/hr TPN CONT IV Last administered on 12/24/17at 21:11; Start 12/24/17 at 22:00; Stop 12/25/17 at 21:59 ; Status DC Calcium Gluconate 2000 mg/Dextrose 120 ml @ 220 mls/hr 1X ONCE IV Last administered on 12/25/17at 09:51; Start 12/25/17 at 10:00; Stop 12/25/17 at 10:32 ; Status DC Diphenhydramine HCl (Benadryl) 50 mg 1X ONCE IVP Last administered on at 14:16; Start 12/25/17 at 09:30; Stop 12/25/17 at 09:31; Status DC Heparin Sodium (Porcine) (Heparin Sodium) 3,000 unit 1X ONCE IV Last administered on 12/25/17at 09:15; Start 12/25/17 at 09:15; Stop 12/25/17 at 09:16 ; Status DC Albumin Human 1,500 ml @ 0 mls/hr 1X ONCE IV Last administered on 12/25/17at 14:19; Start 12/25/17 at 10:45; Stop 12/25/17 at 10:46; Status DC Albumin Human 200 ml @ 0 mls/hr 1X ONCE IV ; Start 12/25/17 at 10:45; Stop 12/25/17 at 10:46; Status DC Heparin Sodium (Porcine) (Heparin Sodium) 10,000 unit STK-MED ONCE .ROUTE ; Start 12/25/17 at 12:39; Stop 12/25/17 at 12:40; Status DC Insulin Human Lispro (HumaLOG) 0-5 UNITS TIDWMEALS SQ Last administered on 12/29at 10:30; Start 12/25/17 at 17:00; Stop 12/29/17 at 11:33; Status DC Dextrose (Dextrose 50%-Water Syringe) 12.5 gm PRN Q15MIN PRN IV SEE COMMENTS; Start 12/25/17 at 13:30 Sodium Chloride 90 meq/Potassium Chloride 50 meq/ Potassium Phosphate 13.6 mmol/ Magnesium Sulfate 5 meq/ Calcium Gluconate 5 meq/ Multivitamins 10 ml/Chromium/ Copper/Manganese/ Seleni/Zn 1 ml/ Total Parenteral Nutrition/Amino Acids/ Dextrose/ Fat Emulsion Intravenous 1,512 ml @ 63 mls/hr TPN CONT IV Last administered on 12/25/17at 21:42; Start 12/25/17 at 22:00; Stop 12/26/17 at 21:59 ; Status DC Barium Sulfate (Varibar Thin Liquid Apple) 148 gm 1X ONCE PO Last administered on 12/26/17at 13:57; Start 12/26/17 at 12:00; Stop 12/26/17 at 12:01 ; Status DC Sodium Chloride 90 meq/Potassium Chloride 50 meq/ Potassium Phosphate 13.6 mmol/ Magnesium Sulfate 5 meq/ Calcium Gluconate 5 meq/ Multivitamins 10 ml/Chromium/ Copper/Manganese/ Seleni/Zn 1 ml/ Total Parenteral Nutrition/Amino Acids/ Dextrose/ Fat Emulsion Intravenous 1,512 ml @ 63 mls/hr TPN CONT IV Last administered on 12/26/17at 21:37; Start 12/26/17 at 22:00; Stop 12/27/17 at 21:59 ; Status DC Vitamin A/Vitamin D (Vitamin A & D Ointment) 1 lila PRN Q1HR PRN TP SKIN PROTECTION Last administered on 12/26/17at 17:42; Start 12/26/17 at 14:15 Pyridostigmine [place] (Regonol) 2.5 mg Q8H IV Last administered on 12/29/17at 17:39; Start 12/26/17 at 17:00 Calcium Gluconate 2000 mg/Dextrose 120 ml @ 220 mls/hr 1X ONCE IV ; Start 12/27/17 at 12:30; Stop 12/27/17 at 13:02; Status DC Sodium Chloride 90 meq/Potassium Chloride 50 meq/ Potassium Phosphate 13.6 mmol/ Magnesium Sulfate 5 meq/ Calcium Gluconate 5 meq/ Multivitamins 10 ml/Chromium/ Copper/Manganese/ Seleni/Zn 1 ml/ Total Parenteral Nutrition/Amino Acids/ Dextrose/ Fat Emulsion Intravenous 1,512 ml @ 63 mls/hr TPN CONT IV Last administered on 12/27/17at 23:26; Start 12/27/17 at 22:00; Stop 12/28/17 at 21:59 ; Status DC Albumin Human 1,500 ml @ 0 mls/hr 1X ONCE IV ; Start 12/27/17 at 15:00; Stop 12/27/17 at 15:01; Status DC Sodium Chloride 1,000 ml @ 1,000 mls/hr Q1H ONCE IV ; Start 12/27/17 at 14:30; Stop 12/27/17 at 15:29; Status DC Diphenhydramine HCl (Benadryl) 50 mg 1X ONCE IVP Last administered on at 16:43; Start 12/27/17 at 14:30; Stop 12/27/17 at 14:34; Status DC Heparin Sodium (Porcine) (Heparin Sodium) 10,000 unit STK-MED ONCE .ROUTE ; Start 12/27/17 at 14:42; Stop 12/27/17 at 14:43; Status DC Sodium Chloride 90 meq/Potassium Chloride 50 meq/ Potassium Phosphate 13.6 mmol/ Magnesium Sulfate 5 meq/ Calcium Gluconate 5 meq/ Multivitamins 10 ml/Chromium/ Copper/Manganese/ Seleni/Zn 1 ml/ Total Parenteral Nutrition/Amino Acids/ Dextrose/ Fat Emulsion Intravenous 1,512 ml @ 63 mls/hr TPN CONT IV Last administered on 12/28/17at 22:03; Start 12/28/17 at 22:00; Stop 12/29/17 at 21:59 Mirtazapine (Remeron) 15 mg QHS PO ; Start 12/29/17 at 21:00 Albumin Human 1,000 ml @ 0 mls/hr 1X ONCE IV ; Start 12/29/17 at 11:15; Stop 12/29/17 at 11:16; Status DC Calcium Gluconate (Calcium Gluconate) 1,000 mg 1X ONCE IV ; Start 12/29/17 at 11:15; Stop 12/29/17 at 11:16; Status DC Diphenhydramine HCl (Benadryl) 25 mg 1X ONCE IV ; Start 12/29/17 at 11:15; Stop 12/29/17 at 11:16; Status DC Insulin Human Lispro (HumaLOG) 0-5 UNITS Q6HRS SQ Last administered on at 17:45; Start 12/29/17 at 18:00 Sodium Chloride 90 meq/Potassium Chloride 50 meq/ Potassium Phosphate 13.6 mmol/ Magnesium Sulfate 5 meq/ Calcium Gluconate 5 meq/ Multivitamins 10 ml/Chromium/ Copper/Manganese/ Seleni/Zn 1 ml/ Total Parenteral Nutrition/Amino Acids/ Dextrose/ Fat Emulsion Intravenous 1,512 ml @ 63 mls/hr TPN CONT IV ; Start 12/29/17 at 22:00; Stop 12/30/17 at 21:59 Diphenhydramine HCl (Benadryl) 25 mg PRN Q6HRS PRN IVP ITCHING; Start 12/29/17 at 21:30 Active Scripts Active Reported Amoxicillin 875 Mg Tablet 1 Tab PO BID Levothyroxine Sodium 25 Mcg Tablet 1 Tab PO DAILY Proair Hfa Inhaler (Albuterol Sulfate) 8.5 Gm Hfa.aer.ad 1 Puff INH PRN Q6HRS PRN [kaitlib fe] Hydrocodone-Apap 7.5-325/15 Soln (Hydrocodone Bit/Acetaminophen) 15 Ml Solution 15 Ml PO PRN Q4HRS PRN Prednisone 50 Mg Tablet 1 Tab PO DAILY Fluticasone Propionate Nasal [place] (Fluticasone Propionate) 16 Gm [place].susp 1 [place] NS DAILY [zoloft] [ativan] Vitals/I & O Vital Sign - Last 24 Hours 12/28/17 12/28/17 12/29/17 12/29/17 22:15 23:42 00:32 03:15 Temp 98.0 98.1 98.0 98.1 Pulse 93 72 Resp 18 18 B/P (MAP) 140/78 (98) 127/74 (91) Pulse Ox 98 97 O2 Delivery Room Air Room Air Room Air Room Air 12/29/17 12/29/17 12/29/17 12/29/17 03:53 06:36 07:00 08:00 Temp 98.0 98.0 Pulse 68 Resp 16 B/P (MAP) 134/90 (105) Pulse Ox 97 O2 Delivery Room Air Room Air Room Air Room Air 12/29/17 12/29/17 12/29/17 12/29/17 10:19 11:00 12:41 15:41 Temp 98.1 98.1 Pulse 77 Resp 16 B/P (MAP) 142/93 (109) Pulse Ox 97 97 97 97 O2 Delivery Room Air Room Air Room Air Room Air 12/29/17 12/29/17 12/29/17 12/29/17 16:11 19:02 19:32 19:34 Temp 97.9 97.9 Pulse 129 Resp 16 B/P (MAP) 115/75 (88) Pulse Ox 97 97 94 O2 Delivery Room Air Room Air Room Air Intake and Output 12/28/17 12/28/17 12/29/17 15:00 23:00 07:00 Intake Total 0 ml 0 ml Balance 0 ml 0 ml VIVIANE VELASQUEZ MD Dec 29, 2017 22:07
[2017-12-29 23:01] VITALS: BP 134/90
[2017-12-30] MEDS: PYRIDOSTIGMINE BROMIDE 10 MG/2 ML AMPUL. IV SCH ×3 (00:18→19:38)
[2017-12-30] MEDS: MORPHINE SULFATE 2 MG/ML VIAL. IV PRN ×7 (00:18→21:53)
[2017-12-30] MEDS: INSULIN LISPRO 300 UNITS/3 ML INSULN.PEN. SQ SCH ×5 (00:26→23:16)
[2017-12-30 03:42] VITALS: BP 118/71
[2017-12-30 05:17] LABS: BASO % 0 % (0-3); EOS % 0 % (0-3); HEMATOCRIT 44.9 % (36.0-47.0); HEMOGLOBIN 15.3 g/dL (12.0-15.5); LYMPH # 1.1 x10^3/uL (1.0-4.8); LYMPH % 6 % (24-48); MEAN CORPUSCULAR HEMOGLOBIN 29 pg (25-35); MEAN CORPUSCULAR HGB CONC 34 g/dL (31-37); MEAN CORPUSCULAR VOLUME 84 fL (79-100); MONO # 1.6 x10^3/uL (0.0-1.1); MONO % 8 % (0-9); NEUT % 85 % (31-73); PLATELET COUNT 151 x10^3/uL (140-400); RED BLOOD COUNT 5.33 x10^6/uL (3.50-5.40); RED CELL DISTRIBUTION WIDTH 12.5 % (11.5-14.5); WHITE BLOOD COUNT 18.7 x10^3/uL (4.0-11.0)
[2017-12-30 05:40] LABS: ALBUMIN 3.2 g/dL (3.4-5.0); ALBUMIN/GLOBULIN RATIO 1.7 (1.0-1.7); CALCIUM 7.9 mg/dL (8.5-10.1); CREATININE 0.6 mg/dL (0.6-1.0); GFR 123.9; MAGNESIUM 2.2 mg/dL (1.8-2.4); PHOSPHORUS 4.1 mg/dL (2.6-4.7); POTASSIUM 4.6 mmol/L (3.5-5.1); TOTAL BILIRUBIN 0.8 mg/dL (0.2-1.0); TOTAL PROTEIN 5.1 g/dL (6.4-8.2)
[2017-12-30 06:57] LABS: % BANDS 1 % (0-9); % LYMPHS 7 % (24-48); % MONOS 3 % (0-10); % SEGS 89 % (35-66); PLT ESTIMATE ADEQUATE (ADEQUATE)
[2017-12-30 07:00] VITALS: BP 114/77
--- NOTE | 2017-12-30 08:43 | PDOC ---
PROGRESS NOTES Chief Complaint Chief Complaint myasthenia gravis - new diagnosis Diplopia Dysphagia Eze's thyroiditis Easy bruising History of Present Illness History of Present Illness 22yo CF p/w progressive weakness, difficulty swallowing, found with positive myasthenia gravis and hyperthroidism and transaminitis, started on plasmapheresis through right subclavian catheter. Still stiff neck, diplopia improved now, right side hand weakness is better. States she is having weakness repositioning and rash on her back is better. Failed NGT feeds, now TPN going for a week. She will not consent to NGT again, have discussed PEG or J-tube. Still contemplating PEG tube, would like to readdress today 12/30/17. She is able to spit up her secretions-doing well with NIF, d/w RT. She had a videofluoroscopic examination with [employer] ADMINISTRATOR showing. Abnormal swallowing mechanism with weak pharyngeal peristalsis and a large amount of piriform sinus residue. 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 Slept a little better last night, would like anxiety meds today A/P: Myasthenia gravis - with GI and respiratory symptoms - pyridostigmine and IV steroids started - Plasmapheresis per renal/neurology - claims will get 5 doses every other day hence will be here at least until Saturday per neuro Hyperthyroid - Thyroid is IV because of swallow issues - still nothing by mouth Dysphagia - IV Pepcid since swallow issues and is nothing by mouth - TPN tolerated - discussed considering surgical consultation and J-tube, they wish to think about it, will readdress daily with GI Shortness of breath - May need EMG of diaphragm in the future to assess her ability to maintain tidal volume if she does not continue to improve Transaminitis - improving, GI following Insomnia - would like a sleep aid, will cont ileana montes Vitals Vitals Vital Signs Date Time Temp Pulse Resp B/P (MAP) Pulse Ox O2 Delivery O2 Flow Rate FiO2 12/30/17 08:01 97 Room Air 12/30/17 07:00 97.5 85 17 114/77 (89) 97.5 Physical Exam General: Alert, Oriented X3, Cooperative, No acute distress Heart: Regular rate, Normal S1, Normal S2 Abdomen: Normal bowel sounds, Soft, No tenderness, No hepatosplenomegaly, No masses Extremities: No clubbing, No cyanosis Skin: No breakdown, No significant lesion, Other (lipoma at the nape) Labs LABS Laboratory Tests Test 12/29/17 12:01 12/29/17 17:39 12/30/17 00:08 12/30/17 04:30 Glucose (Fingerstick) 159 mg/dL (70-99) 234 mg/dL (70-99) 194 mg/dL (70-99) White Blood Count 18.7 x10^3/uL (4.0-11.0) Red Blood Count 5.33 x10^6/uL (3.50-5.40) Hemoglobin 15.3 g/dL (12.0-15.5) Hematocrit 44.9 % (36.0-47.0) Mean Corpuscular Volume 84 fL (79-100) Mean Corpuscular Hemoglobin 29 pg (25-35) Mean Corpuscular Hemoglobin Concent 34 g/dL (31-37) Red Cell Distribution Width 12.5 % (11.5-14.5) Platelet Count 151 x10^3/uL (140-400) Neutrophils (%) (Auto) 85 % (31-73) Lymphocytes (%) (Auto) 6 % (24-48) Monocytes (%) (Auto) 8 % (0-9) Eosinophils (%) (Auto) 0 % (0-3) Basophils (%) (Auto) 0 % (0-3) Neutrophils # (Auto) 16.0 x10^3uL (1.8-7.7) Lymphocytes # (Auto) 1.1 x10^3/uL (1.0-4.8) Monocytes # (Auto) 1.6 x10^3/uL (0.0-1.1) Eosinophils # (Auto) 0.0 x10^3/uL (0.0-0.7) Basophils # (Auto) 0.0 x10^3/uL (0.0-0.2) Segmented Neutrophils % 89 % (35-66) Band Neutrophils % 1 % (0-9) Lymphocytes % 7 % (24-48) Monocytes % 3 % (0-10) Platelet Estimate Adequate (ADEQUATE) Sodium Level 140 mmol/L (136-145) Potassium Level 4.6 mmol/L (3.5-5.1) Chloride Level 105 mmol/L (98-107) Carbon Dioxide Level 28 mmol/L (21-32) Anion Gap 7 (6-14) Blood Urea Nitrogen 27 mg/dL (7-20) Creatinine 0.6 mg/dL (0.6-1.0) Estimated GFR (Cockcroft-Gault) 123.9 BUN/Creatinine Ratio 45 (6-20) Glucose Level 186 mg/dL (70-99) Calcium Level 7.9 mg/dL (8.5-10.1) Ionized Calcium 1.14 mmol/L (1.13-1.32) Phosphorus Level 4.1 mg/dL (2.6-4.7) Magnesium Level 2.2 mg/dL (1.8-2.4) Total Bilirubin 0.8 mg/dL (0.2-1.0) Aspartate Amino Transf (AST/SGOT) 42 U/L (15-37) Alanine Aminotransferase (ALT/SGPT) 126 U/L (14-59) Alkaline Phosphatase 39 U/L (46-116) Creatine Kinase 46 U/L (26-192) Total Protein 5.1 g/dL (6.4-8.2) Albumin 3.2 g/dL (3.4-5.0) Albumin/Globulin Ratio 1.7 (1.0-1.7) Triglycerides Level 248 mg/dL (0-150) Test 12/30/17 06:13 Glucose (Fingerstick) 219 mg/dL (70-99) Assessment and Plan Assessmemt and Plan Problems Medical Problems: (1) Diplopia Status: Acute (2) Marijuana abuse Status: Acute (3) Myasthenia gravis with acute exacerbation Status: Acute (4) Neck muscle weakness Status: Acute (5) RUE weakness Status: Acute (6) Sinusitis Status: Acute Comment Review of Relevant I have reviewed the following items maliha (where applicable) has been applied. Labs Laboratory Tests Test 12/28/17 11:51 12/28/17 13:00 12/28/17 16:22 12/29/17 00:33 Glucose (Fingerstick) 174 mg/dL (70-99) 185 mg/dL (70-99) 228 mg/dL (70-99) Sodium Level 140 mmol/L (136-145) Potassium Level 4.3 mmol/L (3.5-5.1) Chloride Level 104 mmol/L (98-107) Carbon Dioxide Level 32 mmol/L (21-32) Anion Gap 4 (6-14) Blood Urea Nitrogen 21 mg/dL (7-20) Creatinine 0.4 mg/dL (0.6-1.0) Estimated GFR (Cockcroft-Gault) 197.8 BUN/Creatinine Ratio 53 (6-20) Glucose Level 141 mg/dL (70-99) Calcium Level 8.3 mg/dL (8.5-10.1) Total Bilirubin 0.5 mg/dL (0.2-1.0) Aspartate Amino Transf (AST/SGOT) 26 U/L (15-37) Alanine Aminotransferase (ALT/SGPT) 96 U/L (14-59) Alkaline Phosphatase 34 U/L (46-116) Total Protein 5.2 g/dL (6.4-8.2) Albumin 3.4 g/dL (3.4-5.0) Albumin/Globulin Ratio 1.9 (1.0-1.7) Test 12/29/17 04:00 12/29/17 06:20 12/29/17 12:01 12/29/17 17:39 Sodium Level 139 mmol/L (136-145) Potassium Level 4.3 mmol/L (3.5-5.1) Chloride Level 103 mmol/L (98-107) Carbon Dioxide Level 32 mmol/L (21-32) Anion Gap 4 (6-14) Blood Urea Nitrogen 21 mg/dL (7-20) Creatinine 0.5 mg/dL (0.6-1.0) Estimated GFR (Cockcroft-Gault) 152.9 BUN/Creatinine Ratio 42 (6-20) Glucose Level 226 mg/dL (70-99) Calcium Level 8.5 mg/dL (8.5-10.1) Total Bilirubin 0.5 mg/dL (0.2-1.0) Aspartate Amino Transf (AST/SGOT) 39 U/L (15-37) Alanine Aminotransferase (ALT/SGPT) 145 U/L (14-59) Alkaline Phosphatase 37 U/L (46-116) Total Protein 5.2 g/dL (6.4-8.2) Albumin 3.2 g/dL (3.4-5.0) Albumin/Globulin Ratio 1.6 (1.0-1.7) Glucose (Fingerstick) 202 mg/dL (70-99) 159 mg/dL (70-99) 234 mg/dL (70-99) Test 12/30/17 00:08 12/30/17 04:30 12/30/17 06:13 Glucose (Fingerstick) 194 mg/dL (70-99) 219 mg/dL (70-99) White Blood Count 18.7 x10^3/uL (4.0-11.0) Red Blood Count 5.33 x10^6/uL (3.50-5.40) Hemoglobin 15.3 g/dL (12.0-15.5) Hematocrit 44.9 % (36.0-47.0) Mean Corpuscular Volume 84 fL (79-100) Mean Corpuscular Hemoglobin 29 pg (25-35) Mean Corpuscular Hemoglobin Concent 34 g/dL (31-37) Red Cell Distribution Width 12.5 % (11.5-14.5) Platelet Count 151 x10^3/uL (140-400) Neutrophils (%) (Auto) 85 % (31-73) Lymphocytes (%) (Auto) 6 % (24-48) Monocytes (%) (Auto) 8 % (0-9) Eosinophils (%) (Auto) 0 % (0-3) Basophils (%) (Auto) 0 % (0-3) Neutrophils # (Auto) 16.0 x10^3uL (1.8-7.7) Lymphocytes # (Auto) 1.1 x10^3/uL (1.0-4.8) Monocytes # (Auto) 1.6 x10^3/uL (0.0-1.1) Eosinophils # (Auto) 0.0 x10^3/uL (0.0-0.7) Basophils # (Auto) 0.0 x10^3/uL (0.0-0.2) Segmented Neutrophils % 89 % (35-66) Band Neutrophils % 1 % (0-9) Lymphocytes % 7 % (24-48) Monocytes % 3 % (0-10) Platelet Estimate Adequate (ADEQUATE) Sodium Level 140 mmol/L (136-145) Potassium Level 4.6 mmol/L (3.5-5.1) Chloride Level 105 mmol/L (98-107) Carbon Dioxide Level 28 mmol/L (21-32) Anion Gap 7 (6-14) Blood Urea Nitrogen 27 mg/dL (7-20) Creatinine 0.6 mg/dL (0.6-1.0) Estimated GFR (Cockcroft-Gault) 123.9 BUN/Creatinine Ratio 45 (6-20) Glucose Level 186 mg/dL (70-99) Calcium Level 7.9 mg/dL (8.5-10.1) Ionized Calcium 1.14 mmol/L (1.13-1.32) Phosphorus Level 4.1 mg/dL (2.6-4.7) Magnesium Level 2.2 mg/dL (1.8-2.4) Total Bilirubin 0.8 mg/dL (0.2-1.0) Aspartate Amino Transf (AST/SGOT) 42 U/L (15-37) Alanine Aminotransferase (ALT/SGPT) 126 U/L (14-59) Alkaline Phosphatase 39 U/L (46-116) Creatine Kinase 46 U/L (26-192) Total Protein 5.1 g/dL (6.4-8.2) Albumin 3.2 g/dL (3.4-5.0) Albumin/Globulin Ratio 1.7 (1.0-1.7) Triglycerides Level 248 mg/dL (0-150) Laboratory Tests Test 12/29/17 12:01 12/29/17 17:39 12/30/17 00:08 12/30/17 04:30 Glucose (Fingerstick) 159 mg/dL (70-99) 234 mg/dL (70-99) 194 mg/dL (70-99) White Blood Count 18.7 x10^3/uL (4.0-11.0) Red Blood Count 5.33 x10^6/uL (3.50-5.40) Hemoglobin 15.3 g/dL (12.0-15.5) Hematocrit 44.9 % (36.0-47.0) Mean Corpuscular Volume 84 fL (79-100) Mean Corpuscular Hemoglobin 29 pg (25-35) Mean Corpuscular Hemoglobin Concent 34 g/dL (31-37) Red Cell Distribution Width 12.5 % (11.5-14.5) Platelet Count 151 x10^3/uL (140-400) Neutrophils (%) (Auto) 85 % (31-73) Lymphocytes (%) (Auto) 6 % (24-48) Monocytes (%) (Auto) 8 % (0-9) Eosinophils (%) (Auto) 0 % (0-3) Basophils (%) (Auto) 0 % (0-3) Neutrophils # (Auto) 16.0 x10^3uL (1.8-7.7) Lymphocytes # (Auto) 1.1 x10^3/uL (1.0-4.8) Monocytes # (Auto) 1.6 x10^3/uL (0.0-1.1) Eosinophils # (Auto) 0.0 x10^3/uL (0.0-0.7) Basophils # (Auto) 0.0 x10^3/uL (0.0-0.2) Segmented Neutrophils % 89 % (35-66) Band Neutrophils % 1 % (0-9) Lymphocytes % 7 % (24-48) Monocytes % 3 % (0-10) Platelet Estimate Adequate (ADEQUATE) Sodium Level 140 mmol/L (136-145) Potassium Level 4.6 mmol/L (3.5-5.1) Chloride Level 105 mmol/L (98-107) Carbon Dioxide Level 28 mmol/L (21-32) Anion Gap 7 (6-14) Blood Urea Nitrogen 27 mg/dL (7-20) Creatinine 0.6 mg/dL (0.6-1.0) Estimated GFR (Cockcroft-Gault) 123.9 BUN/Creatinine Ratio 45 (6-20) Glucose Level 186 mg/dL (70-99) Calcium Level 7.9 mg/dL (8.5-10.1) Ionized Calcium 1.14 mmol/L (1.13-1.32) Phosphorus Level 4.1 mg/dL (2.6-4.7) Magnesium Level 2.2 mg/dL (1.8-2.4) Total Bilirubin 0.8 mg/dL (0.2-1.0) Aspartate Amino Transf (AST/SGOT) 42 U/L (15-37) Alanine Aminotransferase (ALT/SGPT) 126 U/L (14-59) Alkaline Phosphatase 39 U/L (46-116) Creatine Kinase 46 U/L (26-192) Total Protein 5.1 g/dL (6.4-8.2) Albumin 3.2 g/dL (3.4-5.0) Albumin/Globulin Ratio 1.7 (1.0-1.7) Triglycerides Level 248 mg/dL (0-150) Test 12/30/17 06:13 Glucose (Fingerstick) 219 mg/dL (70-99) Medications Current Medications Meclizine HCl (Antivert) 25 mg 1X ONCE PO Last administered on 12/17/17at 20:00 ; Start 12/17/17 at 20:00; Stop 12/17/17 at 20:01; Status DC Sodium Chloride 1,000 ml @ 1,000 mls/hr 1X ONCE IV Last administered on at 20:35; Start 12/17/17 at 20:15; Stop 12/17/17 at 21:14; Status DC Ketorolac Tromethamine (Toradol 15mg Vial) 15 mg 1X ONCE IV Last administered on 12/17/17at 20:36; Start 12/17/17 at 20:15; Stop 12/17/17 at 20:16; Status DC Diphenhydramine HCl (Benadryl) 25 mg 1X ONCE PO Last administered on at 02:16; Start 12/18/17 at 02:15; Stop 12/18/17 at 02:18; Status DC Acetaminophen (Tylenol) 500 mg PRN Q6HRS PRN PO MILD PAIN / TEMP; Start at 09:00 Acetaminophen/ Codeine Phosphate (Tylenol #3) 1 tab PRN Q6HRS PRN PO PAIN; Start 12/18/17 at 09:00; Stop 12/18/17 at 12:08; Status DC Ibuprofen (Motrin) 600 mg PRN Q6HRS PRN PO INFLAMMATION; Start 12/18/17 at 09: 00; Stop 12/19/17 at 16:23; Status DC Ondansetron HCl (Zofran) 4 mg PRN Q6HRS PRN IV NAUSEA/VOMITING Last administered on 12/29/17at 18:46; Start 12/18/17 at 09:00 Ondansetron HCl (Zofran Odt) 4 mg PRN Q6HRS PRN PO NAUSEA/VOMITING; Start 12/18 at 09:00; Stop 12/18/17 at 12:08; Status DC Fluticasone Propionate (Flonase) 1 spray DAILY NS Last administered on at 09:59; Start 12/18/17 at 09:00 Acetaminophen/ Hydrocodone Bitart (Lortab 7.5-325/ 15ml Oral Solution) 15 ml PRN Q4HRS PRN PO MODERATE PAIN; Start 12/18/17 at 09:00; Stop 12/19/17 at 16:23 ; Status DC Non-Formulary Medication (Albuterol Sulfate (Proair Hfa Inhaler)) 1 puff PRN Q6HRS PRN INH SHORTNESS OF BREATH; Start 12/18/17 at 09:00; Status UNV Amoxicillin (Amoxil) 750 mg BID PO Last administered on 12/18/17at 21:02; Start 12/18/17 at 10:00; Stop 12/19/17 at 16:23; Status DC Levothyroxine Sodium (Synthroid) 25 mcg DAILY07 PO ; Start 12/18/17 at 10:30; Stop 12/18/17 at 12:08; Status DC Prednisone (Prednisone) 50 mg DAILY PO ; Start 12/18/17 at 10:00; Stop 12/18/17 at 12:08; Status DC Alprazolam (Xanax) 0.25 mg PRN Q8HRS PRN PO ANXIETY / AGITATION; Start at 09:00; Stop 12/19/17 at 08:14; Status DC Zolpidem Tartrate (Ambien) 5 mg PRN QHS PRN PO INSOMNIA; Start 12/18/17 at 09: 00; Stop 12/18/17 at 12:08; Status DC Cetirizine HCl (ZyrTEC) 10 mg DAILY PO ; Start 12/18/17 at 10:00; Stop 12/18/17 at 12:08; Status DC Non-Formulary Medication 1 ea 1X ONCE IV ; Start 12/18/17 at 09:00; Stop at 09:01; Status UNV Potassium Chloride/Dextrose/ Sod Cl 1,000 ml @ 80 mls/hr [id number] IV Last administered on 12/19/17at 10:00; Start 12/18/17 at 09:00; Stop 12/20/17 at 09:07 ; Status DC Albuterol Sulfate (Ventolin Neb Soln) 2.5 mg PRN Q6HRS PRN NEB SHORTNESS OF BREATH Last administered on 12/27/17at 19:26; Start 12/18/17 at 09:30 Iohexol (Omnipaque 300 Mg/ml) 75 ml 1X ONCE IV Last administered on 12/18/17at 10:31; Start 12/18/17 at 10:15; Stop 12/18/17 at 10:16; Status DC Info (CONTRAST GIVEN -- Rx MONITORING) 1 each PRN DAILY PRN MC SEE COMMENTS; Start 12/18/17 at 10:15; Stop 12/20/17 at 10:14; Status DC Levothyroxine Sodium 15 mcg/ Sodium Chloride 5 ml @ 100 mls/hr DAILY IVP Last administered on 12/20/17at 09:41; Start 12/18/17 at 12:30; Stop 12/20/17 at 11:44 ; Status DC Lorazepam (Ativan) 1 mg PRN Q4HRS PRN IV ANXIETY / AGITATION Last administered on 12/30/17at 04:43; Start 12/18/17 at 13:15 Alprazolam (Xanax) 0.25 mg PRN Q8HRS PRN NG ANXIETY / AGITATION Last administered on 12/19/17at 01:13; Start 12/18/17 at 13:15; Stop 12/19/17 at 16:23 ; Status DC Pyridostigmine [place] (Mestinon) 60 mg BID NG Last administered on 12/18/17at 21:01; Start 12/18/17 at 13:00; Stop 12/19/17 at 16:23; Status DC Prednisone (Prednisone) 50 mg DAILY PO Last administered on 12/18/17at 16:03; Start 12/18/17 at 13:00; Stop 12/19/17 at 16:23; Status DC Famotidine (Pepcid) 20 mg QHS PO Last administered on 12/18/17at 21:01; Start at 21:00; Stop 12/19/17 at 16:23; Status DC Calcium Carbonate/ Glycine (Oscal) 500 mg TIDAFTMEAL PO ; Start 12/18/17 at 18: 00; Stop 12/19/17 at 16:23; Status DC Ergocalciferol (Vitamin D2) 50,000 unit MoTh PO ; Start 12/19/17 at 09:00; Stop 12/19/17 at 16:23; Status DC Lidocaine/Sodium Bicarbonate (Buffered Lidocaine 1%) 3 ml STK-MED ONCE .ROUTE ; Start 12/18/17 at 14:32; Stop 12/18/17 at 14:33; Status DC Heparin Sodium (Porcine) (Heparin Sodium) 10,000 unit STK-MED ONCE .ROUTE ; Start 12/18/17 at 14:32; Stop 12/18/17 at 14:33; Status DC Lidocaine/Sodium Bicarbonate (Buffered Lidocaine 1%) 3 ml 1X ONCE INJ Last administered on 12/18/17at 15:15; Start 12/18/17 at 15:15; Stop 12/18/17 at 15:16 ; Status DC Heparin Sodium (Porcine) (Heparin Sodium) 2,200 unit 1X ONCE INT CAT Last administered on 12/18/17at 15:15; Start 12/18/17 at 15:15; Stop 12/18/17 at 15:16 ; Status DC Scopolamine (Transderm-Scop) 1 patch 1X ONCE TD Last administered on at 21:41; Start 12/18/17 at 21:30; Stop 12/19/17 at 16:23; Status DC Albumin Human 1,500 ml @ 0 mls/hr 1X ONCE IV Last administered on 12/19/17at 11:38; Start 12/19/17 at 08:15; Stop 12/19/17 at 08:16; Status DC Heparin Sodium (Porcine) (Heparin Sodium) 10,000 unit STK-MED ONCE .ROUTE ; Start 12/19/17 at 08:40; Stop 12/19/17 at 08:41; Status DC Info (Tpn Per Pharmacy) 1 each PRN DAILY PRN MC SEE COMMENTS Last administered on 12/29/17at 12:35; Start 12/20/17 at 16:30 Pyridostigmine [place] (Regonol) 2.5 mg Q12HR IV Last administered on at 09:56; Start 12/19/17 at 21:00; Stop 12/26/17 at 15:52; Status DC Methylprednisolone Sodium Succinate (SOLU-Medrol 40MG VIAL) 40 mg Q12HR IV Last administered on 12/29/17at 19:59; Start 12/19/17 at 21:00 Famotidine (Pepcid Vial) 20 mg QHS IVP Last administered on 12/19/17at 21:33; Start 12/19/17 at 21:00; Stop 12/20/17 at 11:44; Status DC Morphine Sulfate (Morphine Sulfate) 2 mg PRN Q2HR PRN IV MODERATE TO SEVERE PAIN Last administered on 12/30/17at 08:01; Start 12/19/17 at 23:15 Amino Acids/ Glycerin/ Electrolytes 1,000 ml @ 80 mls/hr [id number] IV Last administered on 12/20/17at 09:57; Start 12/20/17 at 09:30; Stop 12/20/17 at 11:44 ; Status DC Alteplase, Recombinant (Cathflo) 2 mg 1X ONCE IV Last administered on at 12:37; Start 12/20/17 at 11:45; Stop 12/20/17 at 11:46; Status DC Cyclobenzaprine HCl (Flexeril) 5 mg QID PO Last administered on 12/21/17at 09:10 ; Start 12/20/17 at 17:00; Stop 12/29/17 at 11:33; Status DC Cyclobenzaprine HCl (Flexeril) 10 mg 1X ONCE PO ; Start 12/20/17 at 11:45; Stop 12/20/17 at 11:53; Status DC Levothyroxine Sodium (Synthroid) 25 mcg DAILY07 PO ; Start 12/21/17 at 07:00; Stop 12/21/17 at 07:00; Status DC Levothyroxine Sodium 12.5 mcg/ Sodium Chloride 5 ml @ 100 mls/hr DAILY IVP Last administered on 12/29/17at 10:00; Start 12/21/17 at 09:00 Sodium Chloride 90 meq/Potassium Chloride 50 meq/ Potassium Phosphate 13.6 mmol/ Magnesium Sulfate 5 meq/ Calcium Gluconate 5 meq/ Multivitamins 10 ml/Chromium/ Copper/Manganese/ Seleni/Zn 1 ml/ Total Parenteral Nutrition/Amino Acids/ Dextrose/ Fat Emulsion Intravenous 1,512 ml @ 63 mls/hr TPN CONT IV Last administered on 12/20/17at 20:58; Start 12/20/17 at 22:00; Stop 12/21/17 at 21:59 ; Status DC Albumin Human 1,200 ml @ 0 mls/hr 1X ONCE IV Last administered on 12/21/17at 10:40; Start 12/21/17 at 08:45; Stop 12/21/17 at 08:46; Status DC Heparin Sodium (Porcine) (Heparin Sodium) 10,000 unit STK-MED ONCE .ROUTE ; Start 12/21/17 at 08:50; Stop 12/21/17 at 08:51; Status DC Diphenhydramine HCl (Benadryl) 50 mg STK-MED ONCE .ROUTE ; Start 12/21/17 at 11: 46; Stop 12/21/17 at 11:47; Status DC Diphenhydramine HCl (Benadryl) 50 mg 1X ONCE IVP Last administered on at 11:59; Start 12/21/17 at 12:00; Stop 12/21/17 at 12:01; Status DC Sodium Chloride 90 meq/Potassium Chloride 50 meq/ Potassium Phosphate 13.6 mmol/ Magnesium Sulfate 5 meq/ Calcium Gluconate 5 meq/ Multivitamins 10 ml/Chromium/ Copper/Manganese/ Seleni/Zn 1 ml/ Total Parenteral Nutrition/Amino Acids/ Dextrose/ Fat Emulsion Intravenous 1,512 ml @ 63 mls/hr TPN CONT IV Last administered on 12/21/17at 22:00; Start 12/21/17 at 22:00; Stop 12/22/17 at 21:59 ; Status DC Sodium Chloride 90 meq/Potassium Chloride 50 meq/ Potassium Phosphate 13.6 mmol/ Magnesium Sulfate 5 meq/ Calcium Gluconate 5 meq/ Multivitamins 10 ml/Chromium/ Copper/Manganese/ Seleni/Zn 1 ml/ Total Parenteral Nutrition/Amino Acids/ Dextrose/ Fat Emulsion Intravenous 1,512 ml @ 63 mls/hr TPN CONT IV Last administered on 12/22/17at 21:26; Start 12/22/17 at 22:00; Stop 12/23/17 at 21:59 ; Status DC Famotidine (Pepcid Vial) 20 mg QHS IVP Last administered on 12/29/17at 19:59; Start 12/23/17 at 21:00 Sodium Chloride 90 meq/Potassium Chloride 50 meq/ Potassium Phosphate 13.6 mmol/ Magnesium Sulfate 5 meq/ Calcium Gluconate 5 meq/ Multivitamins 10 ml/Chromium/ Copper/Manganese/ Seleni/Zn 1 ml/ Total Parenteral Nutrition/Amino Acids/ Dextrose/ Fat Emulsion Intravenous 1,512 ml @ 63 mls/hr TPN CONT IV Last administered on 12/23/17at 21:10; Start 12/23/17 at 22:00; Stop 12/24/17 at 21:59 ; Status DC Diphenhydramine HCl (Benadryl) 50 mg 1X ONCE IVP Last administered on at 17:33; Start 12/23/17 at 12:00; Stop 12/23/17 at 12:23; Status DC Albumin Human 1,500 ml @ 125 mls/hr 1X ONCE IV Last administered on at 17:34; Start 12/23/17 at 12:30; Stop 12/24/17 at 00:29; Status DC Heparin Sodium (Porcine) (Heparin Sodium) 10,000 unit [employer] ONCE .ROUTE ; Start 12/23/17 at 14:57; Stop 12/23/17 at 14:58; Status DC Oxycodone/ Acetaminophen (Percocet 5/325) 1 tab PRN Q6HRS PRN PO PAIN; Start 12/23/17 at 20:45; Status Cancel Sodium Chloride 90 meq/Potassium Chloride 50 meq/ Potassium Phosphate 13.6 mmol/ Magnesium Sulfate 5 meq/ Calcium Gluconate 5 meq/ Multivitamins 10 ml/Chromium/ Copper/Manganese/ Seleni/Zn 1 ml/ Total Parenteral Nutrition/Amino Acids/ Dextrose/ Fat Emulsion Intravenous 1,512 ml @ 63 mls/hr TPN CONT IV Last administered on 12/24/17at 21:11; Start 12/24/17 at 22:00; Stop 12/25/17 at 21:59 ; Status DC Calcium Gluconate 2000 mg/Dextrose 120 ml @ 220 mls/hr 1X ONCE IV Last administered on 12/25/17at 09:51; Start 12/25/17 at 10:00; Stop 12/25/17 at 10:32 ; Status DC Diphenhydramine HCl (Benadryl) 50 mg 1X ONCE IVP Last administered on at 14:16; Start 12/25/17 at 09:30; Stop 12/25/17 at 09:31; Status DC Heparin Sodium (Porcine) (Heparin Sodium) 3,000 unit 1X ONCE IV Last administered on 12/25/17at 09:15; Start 12/25/17 at 09:15; Stop 12/25/17 at 09:16 ; Status DC Albumin Human 1,500 ml @ 0 mls/hr 1X ONCE IV Last administered on 12/25/17at 14:19; Start 12/25/17 at 10:45; Stop 12/25/17 at 10:46; Status DC Albumin Human 200 ml @ 0 mls/hr 1X ONCE IV ; Start 12/25/17 at 10:45; Stop 12/25/17 at 10:46; Status DC Heparin Sodium (Porcine) (Heparin Sodium) 10,000 unit STK-MED ONCE .ROUTE ; Start 12/25/17 at 12:39; Stop 12/25/17 at 12:40; Status DC Insulin Human Lispro (HumaLOG) 0-5 UNITS TIDWMEALS SQ Last administered on 12/29at 10:30; Start 12/25/17 at 17:00; Stop 12/29/17 at 11:33; Status DC Dextrose (Dextrose 50%-Water Syringe) 12.5 gm PRN Q15MIN PRN IV SEE COMMENTS; Start 12/25/17 at 13:30 Sodium Chloride 90 meq/Potassium Chloride 50 meq/ Potassium Phosphate 13.6 mmol/ Magnesium Sulfate 5 meq/ Calcium Gluconate 5 meq/ Multivitamins 10 ml/Chromium/ Copper/Manganese/ Seleni/Zn 1 ml/ Total Parenteral Nutrition/Amino Acids/ Dextrose/ Fat Emulsion Intravenous 1,512 ml @ 63 mls/hr TPN CONT IV Last administered on 12/25/17at 21:42; Start 12/25/17 at 22:00; Stop 12/26/17 at 21:59 ; Status DC Barium Sulfate (Varibar Thin Liquid Apple) 148 gm 1X ONCE PO Last administered on 12/26/17at 13:57; Start 12/26/17 at 12:00; Stop 12/26/17 at 12:01 ; Status DC Sodium Chloride 90 meq/Potassium Chloride 50 meq/ Potassium Phosphate 13.6 mmol/ Magnesium Sulfate 5 meq/ Calcium Gluconate 5 meq/ Multivitamins 10 ml/Chromium/ Copper/Manganese/ Seleni/Zn 1 ml/ Total Parenteral Nutrition/Amino Acids/ Dextrose/ Fat Emulsion Intravenous 1,512 ml @ 63 mls/hr TPN CONT IV Last administered on 12/26/17at 21:37; Start 12/26/17 at 22:00; Stop 12/27/17 at 21:59 ; Status DC Vitamin A/Vitamin D (Vitamin A & D Ointment) 1 lila PRN Q1HR PRN TP SKIN PROTECTION Last administered on 12/26/17at 17:42; Start 12/26/17 at 14:15 Pyridostigmine [place] (Regonol) 2.5 mg Q8H IV Last administered on 12/30/17at 00:18; Start 12/26/17 at 17:00 Calcium Gluconate 2000 mg/Dextrose 120 ml @ 220 mls/hr 1X ONCE IV ; Start 12/27/17 at 12:30; Stop 12/27/17 at 13:02; Status DC Sodium Chloride 90 meq/Potassium Chloride 50 meq/ Potassium Phosphate 13.6 mmol/ Magnesium Sulfate 5 meq/ Calcium Gluconate 5 meq/ Multivitamins 10 ml/Chromium/ Copper/Manganese/ Seleni/Zn 1 ml/ Total Parenteral Nutrition/Amino Acids/ Dextrose/ Fat Emulsion Intravenous 1,512 ml @ 63 mls/hr TPN CONT IV Last administered on 12/27/17at 23:26; Start 12/27/17 at 22:00; Stop 12/28/17 at 21:59 ; Status DC Albumin Human 1,500 ml @ 0 mls/hr 1X ONCE IV ; Start 12/27/17 at 15:00; Stop 12/27/17 at 15:01; Status DC Sodium Chloride 1,000 ml @ 1,000 mls/hr Q1H ONCE IV ; Start 12/27/17 at 14:30; Stop 12/27/17 at 15:29; Status DC Diphenhydramine HCl (Benadryl) 50 mg 1X ONCE IVP Last administered on at 16:43; Start 12/27/17 at 14:30; Stop 12/27/17 at 14:34; Status DC Heparin Sodium (Porcine) (Heparin Sodium) 10,000 unit STK-MED ONCE .ROUTE ; Start 12/27/17 at 14:42; Stop 12/27/17 at 14:43; Status DC Sodium Chloride 90 meq/Potassium Chloride 50 meq/ Potassium Phosphate 13.6 mmol/ Magnesium Sulfate 5 meq/ Calcium Gluconate 5 meq/ Multivitamins 10 ml/Chromium/ Copper/Manganese/ Seleni/Zn 1 ml/ Total Parenteral Nutrition/Amino Acids/ Dextrose/ Fat Emulsion Intravenous 1,512 ml @ 63 mls/hr TPN CONT IV Last administered on 12/28/17at 22:03; Start 12/28/17 at 22:00; Stop 12/29/17 at 21:59 ; Status DC Mirtazapine (Remeron) 15 mg QHS PO ; Start 12/29/17 at 21:00 Albumin Human 1,000 ml @ 0 mls/hr 1X ONCE IV ; Start 12/29/17 at 11:15; Stop 12/29/17 at 11:16; Status DC Calcium Gluconate (Calcium Gluconate) 1,000 mg 1X ONCE IV ; Start 12/29/17 at 11:15; Stop 12/29/17 at 11:16; Status DC Diphenhydramine HCl (Benadryl) 25 mg 1X ONCE IV ; Start 12/29/17 at 11:15; Stop 12/29/17 at 11:16; Status DC Insulin Human Lispro (HumaLOG) 0-5 UNITS Q6HRS SQ Last administered on at 06:19; Start 12/29/17 at 18:00 Sodium Chloride 90 meq/Potassium Chloride 50 meq/ Potassium Phosphate 13.6 mmol/ Magnesium Sulfate 5 meq/ Calcium Gluconate 5 meq/ Multivitamins 10 ml/Chromium/ Copper/Manganese/ Seleni/Zn 1 ml/ Total Parenteral Nutrition/Amino Acids/ Dextrose/ Fat Emulsion Intravenous 1,512 ml @ 63 mls/hr TPN CONT IV Last administered on 12/29/17at 21:58; Start 12/29/17 at 22:00; Stop 12/30/17 at 21:59 Diphenhydramine HCl (Benadryl) 25 mg PRN Q6HRS PRN IVP ITCHING Last administered on 12/29/17at 22:04; Start 12/29/17 at 21:30 Active Scripts Active Reported Amoxicillin 875 Mg Tablet 1 Tab PO BID Levothyroxine Sodium 25 Mcg Tablet 1 Tab PO DAILY Proair Hfa Inhaler (Albuterol Sulfate) 8.5 Gm Hfa.aer.ad 1 Puff INH PRN Q6HRS PRN [kaitlib fe] Hydrocodone-Apap 7.5-325/15 Soln (Hydrocodone Bit/Acetaminophen) 15 Ml Solution 15 Ml PO PRN Q4HRS PRN Prednisone 50 Mg Tablet 1 Tab PO DAILY Fluticasone Propionate Nasal [place] (Fluticasone Propionate) 16 Gm [place].susp 1 [place] NS DAILY [zoloft] [ativan] Vitals/I & O Vital Sign - Last 24 Hours 12/29/17 12/29/17 12/29/17 12/29/17 10:19 11:00 12:41 15:41 Temp 98.1 98.1 Pulse 77 Resp 16 B/P (MAP) 142/93 (109) Pulse Ox 97 97 97 97 O2 Delivery Room Air Room Air Room Air Room Air 12/29/17 12/29/17 12/29/17 12/29/17 16:11 19:02 19:34 20:00 Temp 97.9 97.9 Pulse 129 Resp 16 B/P (MAP) 115/75 (88) Pulse Ox 97 97 94 O2 Delivery Room Air Room Air Room Air 12/29/17 12/29/17 12/30/17 12/30/17 22:03 23:01 00:18 03:42 Temp 98.0 98.0 Pulse 97 69 Resp 16 16 B/P (MAP) 134/90 (105) 118/71 (87) Pulse Ox 97 96 O2 Delivery Room Air Room Air Room Air Room Air 12/30/17 12/30/17 12/30/17 12/30/17 04:43 05:13 07:00 08:01 Temp 97.5 97.5 Pulse 85 Resp 17 B/P (MAP) 114/77 (89) Pulse Ox 97 97 O2 Delivery Room Air Room Air Room Air Room Air Intake and Output 12/29/17 12/29/17 12/30/17 15:00 23:00 07:00 Intake Total 0 ml 0 ml Balance 0 ml 0 ml SINDY SANTILLAN MD Dec 30, 2017 08:43
--- NOTE | 2017-12-30 09:01 | PDOC ---
Subjective: Subjective: Feels a little better. Taking some ice chips/spoonfuls of water. Might be leaning toward PEG placement but would like to keep considering this while treatments continue. Objective: Vital Signs: Vital Signs Date Time Temp Pulse Resp B/P (MAP) Pulse Ox O2 Delivery O2 Flow Rate FiO2 12/30/17 08:01 97 Room Air 12/30/17 07:00 97.5 85 17 114/77 (89) 97.5 Labs: Laboratory Tests Test 12/29/17 12:01 12/29/17 17:39 12/30/17 00:08 12/30/17 04:30 Glucose (Fingerstick) 159 mg/dL 234 mg/dL 194 mg/dL White Blood Count 18.7 x10^3/uL Red Blood Count 5.33 x10^6/uL Hemoglobin 15.3 g/dL Hematocrit 44.9 % Mean Corpuscular Volume 84 fL Mean Corpuscular Hemoglobin 29 pg Mean Corpuscular Hemoglobin Concent 34 g/dL Red Cell Distribution Width 12.5 % Platelet Count 151 x10^3/uL Neutrophils (%) (Auto) 85 % Lymphocytes (%) (Auto) 6 % Monocytes (%) (Auto) 8 % Eosinophils (%) (Auto) 0 % Basophils (%) (Auto) 0 % Neutrophils # (Auto) 16.0 x10^3uL Lymphocytes # (Auto) 1.1 x10^3/uL Monocytes # (Auto) 1.6 x10^3/uL Eosinophils # (Auto) 0.0 x10^3/uL Basophils # (Auto) 0.0 x10^3/uL Segmented Neutrophils % 89 % Band Neutrophils % 1 % Lymphocytes % 7 % Monocytes % 3 % Platelet Estimate Adequate Sodium Level 140 mmol/L Potassium Level 4.6 mmol/L Chloride Level 105 mmol/L Carbon Dioxide Level 28 mmol/L Anion Gap 7 Blood Urea Nitrogen 27 mg/dL Creatinine 0.6 mg/dL Estimated GFR (Cockcroft-Gault) 123.9 BUN/Creatinine Ratio 45 Glucose Level 186 mg/dL Calcium Level 7.9 mg/dL Ionized Calcium 1.14 mmol/L Phosphorus Level 4.1 mg/dL Magnesium Level 2.2 mg/dL Total Bilirubin 0.8 mg/dL Aspartate Amino Transf (AST/SGOT) 42 U/L Alanine Aminotransferase (ALT/SGPT) 126 U/L Alkaline Phosphatase 39 U/L Creatine Kinase 46 U/L Total Protein 5.1 g/dL Albumin 3.2 g/dL Albumin/Globulin Ratio 1.7 Triglycerides Level 248 mg/dL Test 12/30/17 06:13 Glucose (Fingerstick) 219 mg/dL PE: GEN: NAD - looks more perky, voice stronger LUNGS: CTAB HEART: RRR ABD: S/ND/NT NEURO/PSYCH: A & O 3 A/P: Myasthenia gravis w/ dysphagia - on TPN Leukocytosis on IV steroids Elevated LFTs - better -- Pt considering PEG placement, will follow. OFELIA QUINN Dec 30, 2017 09:01
[2017-12-30] MEDS: methylPREDNISolone SOD SUCC PF 40 MG/ML VIAL. IV SCH ×2 (09:34→21:36)
[2017-12-30] MEDS: NORMAL SALINE IVP SCH (09:36)
[2017-12-30] MEDS: LEVOTHYROXINE SODIUM IVP SCH (09:36)
[2017-12-30] MEDS: FLUTICASONE 50MCG/NASAL SPRAY 16GM BOTTLE. NS SCH (09:36)
--- NOTE | 2017-12-30 10:32 | PDOC ---
PROGRESS NOTES Assessment Problems Medical Problems: (1) Diplopia Status: Acute (2) Marijuana abuse Status: Acute (3) Myasthenia gravis with acute exacerbation Status: Acute (4) Neck muscle weakness Status: Acute (5) RUE weakness Status: Acute (6) Sinusitis Status: Acute Myasthenia gravis, on steroids and 4 plasmaphereses Myasthenia serology is positive Chest CT negative for thymoma Also has Eze's thyroiditis Also has anxiety disorder Also has elevated transaminases and positive Hepatitis B surface anybody Plan Speech therapy, PT, OT Needs PEG, aim for placement later this week Monitor negative inspiratory force Plasmapheresis QOD, now plan on continuing through 01/01 IV steroids Increase pyridostigmine to q6h Patient thinks she can tolerate brain MRI, given slow progress, I will check this. Subjective Feels salivation is better Objective Vital Signs Date Time Temp Pulse Resp B/P (MAP) Pulse Ox O2 Delivery O2 Flow Rate FiO2 12/30/17 09:32 18 Room Air 12/30/17 08:01 97 12/30/17 07:00 97.5 85 114/77 (89) 97.5 Intake and Output 12/30/17 06:59 Intake Total 0 ml Balance 0 ml Intake Oral 0 ml # Voids 7 PHYSICAL EXAM Alert. Oriented to time, place and person. PERRL. EOMI. CN: no focal findings. no diplopia. Voice is strong, but still somewhat hypernasal Muscle tone: normal. Muscle strength: 5/5, 5-/5 right arm, no longer has neck extension weakness DTR: 2+ Plantar reflex: Flexor Gait: not examined in bed. Sensory exam: no abnormal findings. No cerebellar signs elicited. Review of Relevant I have reviewed the following items maliha (where applicable) has been applied. Labs Laboratory Tests Test 12/28/17 11:51 12/28/17 13:00 12/28/17 16:22 12/29/17 00:33 Glucose (Fingerstick) 174 mg/dL (70-99) 185 mg/dL (70-99) 228 mg/dL (70-99) Sodium Level 140 mmol/L (136-145) Potassium Level 4.3 mmol/L (3.5-5.1) Chloride Level 104 mmol/L (98-107) Carbon Dioxide Level 32 mmol/L (21-32) Anion Gap 4 (6-14) Blood Urea Nitrogen 21 mg/dL (7-20) Creatinine 0.4 mg/dL (0.6-1.0) Estimated GFR (Cockcroft-Gault) 197.8 BUN/Creatinine Ratio 53 (6-20) Glucose Level 141 mg/dL (70-99) Calcium Level 8.3 mg/dL (8.5-10.1) Total Bilirubin 0.5 mg/dL (0.2-1.0) Aspartate Amino Transf (AST/SGOT) 26 U/L (15-37) Alanine Aminotransferase (ALT/SGPT) 96 U/L (14-59) Alkaline Phosphatase 34 U/L (46-116) Total Protein 5.2 g/dL (6.4-8.2) Albumin 3.4 g/dL (3.4-5.0) Albumin/Globulin Ratio 1.9 (1.0-1.7) Test 12/29/17 04:00 12/29/17 06:20 12/29/17 12:01 12/29/17 17:39 Sodium Level 139 mmol/L (136-145) Potassium Level 4.3 mmol/L (3.5-5.1) Chloride Level 103 mmol/L (98-107) Carbon Dioxide Level 32 mmol/L (21-32) Anion Gap 4 (6-14) Blood Urea Nitrogen 21 mg/dL (7-20) Creatinine 0.5 mg/dL (0.6-1.0) Estimated GFR (Cockcroft-Gault) 152.9 BUN/Creatinine Ratio 42 (6-20) Glucose Level 226 mg/dL (70-99) Calcium Level 8.5 mg/dL (8.5-10.1) Total Bilirubin 0.5 mg/dL (0.2-1.0) Aspartate Amino Transf (AST/SGOT) 39 U/L (15-37) Alanine Aminotransferase (ALT/SGPT) 145 U/L (14-59) Alkaline Phosphatase 37 U/L (46-116) Total Protein 5.2 g/dL (6.4-8.2) Albumin 3.2 g/dL (3.4-5.0) Albumin/Globulin Ratio 1.6 (1.0-1.7) Glucose (Fingerstick) 202 mg/dL (70-99) 159 mg/dL (70-99) 234 mg/dL (70-99) Test 12/30/17 00:08 12/30/17 04:30 12/30/17 06:13 Glucose (Fingerstick) 194 mg/dL (70-99) 219 mg/dL (70-99) White Blood Count 18.7 x10^3/uL (4.0-11.0) Red Blood Count 5.33 x10^6/uL (3.50-5.40) Hemoglobin 15.3 g/dL (12.0-15.5) Hematocrit 44.9 % (36.0-47.0) Mean Corpuscular Volume 84 fL (79-100) Mean Corpuscular Hemoglobin 29 pg (25-35) Mean Corpuscular Hemoglobin Concent 34 g/dL (31-37) Red Cell Distribution Width 12.5 % (11.5-14.5) Platelet Count 151 x10^3/uL (140-400) Neutrophils (%) (Auto) 85 % (31-73) Lymphocytes (%) (Auto) 6 % (24-48) Monocytes (%) (Auto) 8 % (0-9) Eosinophils (%) (Auto) 0 % (0-3) Basophils (%) (Auto) 0 % (0-3) Neutrophils # (Auto) 16.0 x10^3uL (1.8-7.7) Lymphocytes # (Auto) 1.1 x10^3/uL (1.0-4.8) Monocytes # (Auto) 1.6 x10^3/uL (0.0-1.1) Eosinophils # (Auto) 0.0 x10^3/uL (0.0-0.7) Basophils # (Auto) 0.0 x10^3/uL (0.0-0.2) Segmented Neutrophils % 89 % (35-66) Band Neutrophils % 1 % (0-9) Lymphocytes % 7 % (24-48) Monocytes % 3 % (0-10) Platelet Estimate Adequate (ADEQUATE) Sodium Level 140 mmol/L (136-145) Potassium Level 4.6 mmol/L (3.5-5.1) Chloride Level 105 mmol/L (98-107) Carbon Dioxide Level 28 mmol/L (21-32) Anion Gap 7 (6-14) Blood Urea Nitrogen 27 mg/dL (7-20) Creatinine 0.6 mg/dL (0.6-1.0) Estimated GFR (Cockcroft-Gault) 123.9 BUN/Creatinine Ratio 45 (6-20) Glucose Level 186 mg/dL (70-99) Calcium Level 7.9 mg/dL (8.5-10.1) Ionized Calcium 1.14 mmol/L (1.13-1.32) Phosphorus Level 4.1 mg/dL (2.6-4.7) Magnesium Level 2.2 mg/dL (1.8-2.4) Total Bilirubin 0.8 mg/dL (0.2-1.0) Aspartate Amino Transf (AST/SGOT) 42 U/L (15-37) Alanine Aminotransferase (ALT/SGPT) 126 U/L (14-59) Alkaline Phosphatase 39 U/L (46-116) Creatine Kinase 46 U/L (26-192) Total Protein 5.1 g/dL (6.4-8.2) Albumin 3.2 g/dL (3.4-5.0) Albumin/Globulin Ratio 1.7 (1.0-1.7) Triglycerides Level 248 mg/dL (0-150) Vitamin B12 Level 431 pg/mL (247-911) Laboratory Tests Test 12/29/17 12:01 12/29/17 17:39 12/30/17 00:08 12/30/17 04:30 Glucose (Fingerstick) 159 mg/dL (70-99) 234 mg/dL (70-99) 194 mg/dL (70-99) White Blood Count 18.7 x10^3/uL (4.0-11.0) Red Blood Count 5.33 x10^6/uL (3.50-5.40) Hemoglobin 15.3 g/dL (12.0-15.5) Hematocrit 44.9 % (36.0-47.0) Mean Corpuscular Volume 84 fL (79-100) Mean Corpuscular Hemoglobin 29 pg (25-35) Mean Corpuscular Hemoglobin Concent 34 g/dL (31-37) Red Cell Distribution Width 12.5 % (11.5-14.5) Platelet Count 151 x10^3/uL (140-400) Neutrophils (%) (Auto) 85 % (31-73) Lymphocytes (%) (Auto) 6 % (24-48) Monocytes (%) (Auto) 8 % (0-9) Eosinophils (%) (Auto) 0 % (0-3) Basophils (%) (Auto) 0 % (0-3) Neutrophils # (Auto) 16.0 x10^3uL (1.8-7.7) Lymphocytes # (Auto) 1.1 x10^3/uL (1.0-4.8) Monocytes # (Auto) 1.6 x10^3/uL (0.0-1.1) Eosinophils # (Auto) 0.0 x10^3/uL (0.0-0.7) Basophils # (Auto) 0.0 x10^3/uL (0.0-0.2) Segmented Neutrophils % 89 % (35-66) Band Neutrophils % 1 % (0-9) Lymphocytes % 7 % (24-48) Monocytes % 3 % (0-10) Platelet Estimate Adequate (ADEQUATE) Sodium Level 140 mmol/L (136-145) Potassium Level 4.6 mmol/L (3.5-5.1) Chloride Level 105 mmol/L (98-107) Carbon Dioxide Level 28 mmol/L (21-32) Anion Gap 7 (6-14) Blood Urea Nitrogen 27 mg/dL (7-20) Creatinine 0.6 mg/dL (0.6-1.0) Estimated GFR (Cockcroft-Gault) 123.9 BUN/Creatinine Ratio 45 (6-20) Glucose Level 186 mg/dL (70-99) Calcium Level 7.9 mg/dL (8.5-10.1) Ionized Calcium 1.14 mmol/L (1.13-1.32) Phosphorus Level 4.1 mg/dL (2.6-4.7) Magnesium Level 2.2 mg/dL (1.8-2.4) Total Bilirubin 0.8 mg/dL (0.2-1.0) Aspartate Amino Transf (AST/SGOT) 42 U/L (15-37) Alanine Aminotransferase (ALT/SGPT) 126 U/L (14-59) Alkaline Phosphatase 39 U/L (46-116) Creatine Kinase 46 U/L (26-192) Total Protein 5.1 g/dL (6.4-8.2) Albumin 3.2 g/dL (3.4-5.0) Albumin/Globulin Ratio 1.7 (1.0-1.7) Triglycerides Level 248 mg/dL (0-150) Vitamin B12 Level 431 pg/mL (247-911) Test 12/30/17 06:13 Glucose (Fingerstick) 219 mg/dL (70-99) Medications Current Medications Meclizine HCl (Antivert) 25 mg 1X ONCE PO Last administered on 12/17/17at 20:00 ; Start 12/17/17 at 20:00; Stop 12/17/17 at 20:01; Status DC Sodium Chloride 1,000 ml @ 1,000 mls/hr 1X ONCE IV Last administered on at 20:35; Start 12/17/17 at 20:15; Stop 12/17/17 at 21:14; Status DC Ketorolac Tromethamine (Toradol 15mg Vial) 15 mg 1X ONCE IV Last administered on 12/17/17at 20:36; Start 12/17/17 at 20:15; Stop 12/17/17 at 20:16; Status DC Diphenhydramine HCl (Benadryl) 25 mg 1X ONCE PO Last administered on at 02:16; Start 12/18/17 at 02:15; Stop 12/18/17 at 02:18; Status DC Acetaminophen (Tylenol) 500 mg PRN Q6HRS PRN PO MILD PAIN / TEMP; Start at 09:00 Acetaminophen/ Codeine Phosphate (Tylenol #3) 1 tab PRN Q6HRS PRN PO PAIN; Start 12/18/17 at 09:00; Stop 12/18/17 at 12:08; Status DC Ibuprofen (Motrin) 600 mg PRN Q6HRS PRN PO INFLAMMATION; Start 12/18/17 at 09: 00; Stop 12/19/17 at 16:23; Status DC Ondansetron HCl (Zofran) 4 mg PRN Q6HRS PRN IV NAUSEA/VOMITING Last administered on 12/29/17at 18:46; Start 12/18/17 at 09:00 Ondansetron HCl (Zofran Odt) 4 mg PRN Q6HRS PRN PO NAUSEA/VOMITING; Start 12/18 at 09:00; Stop 12/18/17 at 12:08; Status DC Fluticasone Propionate (Flonase) 1 spray DAILY NS Last administered on at 09:36; Start 12/18/17 at 09:00 Acetaminophen/ Hydrocodone Bitart (Lortab 7.5-325/ 15ml Oral Solution) 15 ml PRN Q4HRS PRN PO MODERATE PAIN; Start 12/18/17 at 09:00; Stop 12/19/17 at 16:23 ; Status DC Non-Formulary Medication (Albuterol Sulfate (Proair Hfa Inhaler)) 1 puff PRN Q6HRS PRN INH SHORTNESS OF BREATH; Start 12/18/17 at 09:00; Status UNV Amoxicillin (Amoxil) 750 mg BID PO Last administered on 12/18/17at 21:02; Start 12/18/17 at 10:00; Stop 12/19/17 at 16:23; Status DC Levothyroxine Sodium (Synthroid) 25 mcg DAILY07 PO ; Start 12/18/17 at 10:30; Stop 12/18/17 at 12:08; Status DC Prednisone (Prednisone) 50 mg DAILY PO ; Start 12/18/17 at 10:00; Stop 12/18/17 at 12:08; Status DC Alprazolam (Xanax) 0.25 mg PRN Q8HRS PRN PO ANXIETY / AGITATION; Start at 09:00; Stop 12/19/17 at 08:14; Status DC Zolpidem Tartrate (Ambien) 5 mg PRN QHS PRN PO INSOMNIA; Start 12/18/17 at 09: 00; Stop 12/18/17 at 12:08; Status DC Cetirizine HCl (ZyrTEC) 10 mg DAILY PO ; Start 12/18/17 at 10:00; Stop 12/18/17 at 12:08; Status DC Non-Formulary Medication 1 ea 1X ONCE IV ; Start 12/18/17 at 09:00; Stop at 09:01; Status UNV Potassium Chloride/Dextrose/ Sod Cl 1,000 ml @ 80 mls/hr [id number] IV Last administered on 12/19/17at 10:00; Start 12/18/17 at 09:00; Stop 12/20/17 at 09:07 ; Status DC Albuterol Sulfate (Ventolin Neb Soln) 2.5 mg PRN Q6HRS PRN NEB SHORTNESS OF BREATH Last administered on 12/27/17at 19:26; Start 12/18/17 at 09:30 Iohexol (Omnipaque 300 Mg/ml) 75 ml 1X ONCE IV Last administered on 12/18/17at 10:31; Start 12/18/17 at 10:15; Stop 12/18/17 at 10:16; Status DC Info (CONTRAST GIVEN -- Rx MONITORING) 1 each PRN DAILY PRN MC SEE COMMENTS; Start 12/18/17 at 10:15; Stop 12/20/17 at 10:14; Status DC Levothyroxine Sodium 15 mcg/ Sodium Chloride 5 ml @ 100 mls/hr DAILY IVP Last administered on 12/20/17at 09:41; Start 12/18/17 at 12:30; Stop 12/20/17 at 11:44 ; Status DC Lorazepam (Ativan) 1 mg PRN Q4HRS PRN IV ANXIETY / AGITATION Last administered on 12/30/17at 09:33; Start 12/18/17 at 13:15 Alprazolam (Xanax) 0.25 mg PRN Q8HRS PRN NG ANXIETY / AGITATION Last administered on 12/19/17at 01:13; Start 12/18/17 at 13:15; Stop 12/19/17 at 16:23 ; Status DC Pyridostigmine Shipman (Mestinon) 60 mg BID NG Last administered on 12/18/17at 21:01; Start 12/18/17 at 13:00; Stop 12/19/17 at 16:23; Status DC Prednisone (Prednisone) 50 mg DAILY PO Last administered on 12/18/17at 16:03; Start 12/18/17 at 13:00; Stop 12/19/17 at 16:23; Status DC Famotidine (Pepcid) 20 mg QHS PO Last administered on 12/18/17at 21:01; Start at 21:00; Stop 12/19/17 at 16:23; Status DC Calcium Carbonate/ Glycine (Oscal) 500 mg TIDAFTMEAL PO ; Start 12/18/17 at 18: 00; Stop 12/19/17 at 16:23; Status DC Ergocalciferol (Vitamin D2) 50,000 unit MoTh PO ; Start 12/19/17 at 09:00; Stop 12/19/17 at 16:23; Status DC Lidocaine/Sodium Bicarbonate (Buffered Lidocaine 1%) 3 ml STK-MED ONCE .ROUTE ; Start 12/18/17 at 14:32; Stop 12/18/17 at 14:33; Status DC Heparin Sodium (Porcine) (Heparin Sodium) 10,000 unit STK-MED ONCE .ROUTE ; Start 12/18/17 at 14:32; Stop 12/18/17 at 14:33; Status DC Lidocaine/Sodium Bicarbonate (Buffered Lidocaine 1%) 3 ml 1X ONCE INJ Last administered on 12/18/17at 15:15; Start 12/18/17 at 15:15; Stop 12/18/17 at 15:16 ; Status DC Heparin Sodium (Porcine) (Heparin Sodium) 2,200 unit 1X ONCE INT CAT Last administered on 12/18/17at 15:15; Start 12/18/17 at 15:15; Stop 12/18/17 at 15:16 ; Status DC Scopolamine (Transderm-Scop) 1 patch 1X ONCE TD Last administered on at 21:41; Start 12/18/17 at 21:30; Stop 12/19/17 at 16:23; Status DC Albumin Human 1,500 ml @ 0 mls/hr 1X ONCE IV Last administered on 12/19/17at 11:38; Start 12/19/17 at 08:15; Stop 12/19/17 at 08:16; Status DC Heparin Sodium (Porcine) (Heparin Sodium) 10,000 unit STK-MED ONCE .ROUTE ; Start 12/19/17 at 08:40; Stop 12/19/17 at 08:41; Status DC Info (Tpn Per Pharmacy) 1 each PRN DAILY PRN MC SEE COMMENTS Last administered on 12/29/17at 12:35; Start 12/20/17 at 16:30 Pyridostigmine Shipman (Regonol) 2.5 mg Q12HR IV Last administered on at 09:56; Start 12/19/17 at 21:00; Stop 12/26/17 at 15:52; Status DC Methylprednisolone Sodium Succinate (SOLU-Medrol 40MG VIAL) 40 mg Q12HR IV Last administered on 12/30/17at 09:34; Start 12/19/17 at 21:00 Famotidine (Pepcid Vial) 20 mg QHS IVP Last administered on 12/19/17at 21:33; Start 12/19/17 at 21:00; Stop 12/20/17 at 11:44; Status DC Morphine Sulfate (Morphine Sulfate) 2 mg PRN Q2HR PRN IV MODERATE TO SEVERE PAIN Last administered on 12/30/17at 08:01; Start 12/19/17 at 23:15 Amino Acids/ Glycerin/ Electrolytes 1,000 ml @ 80 mls/hr [id number] IV Last administered on 12/20/17at 09:57; Start 12/20/17 at 09:30; Stop 12/20/17 at 11:44 ; Status DC Alteplase, Recombinant (Cathflo) 2 mg 1X ONCE IV Last administered on at 12:37; Start 12/20/17 at 11:45; Stop 12/20/17 at 11:46; Status DC Cyclobenzaprine HCl (Flexeril) 5 mg QID PO Last administered on 12/21/17at 09:10 ; Start 12/20/17 at 17:00; Stop 12/29/17 at 11:33; Status DC Cyclobenzaprine HCl (Flexeril) 10 mg 1X ONCE PO ; Start 12/20/17 at 11:45; Stop 12/20/17 at 11:53; Status DC Levothyroxine Sodium (Synthroid) 25 mcg DAILY07 PO ; Start 12/21/17 at 07:00; Stop 12/21/17 at 07:00; Status DC Levothyroxine Sodium 12.5 mcg/ Sodium Chloride 5 ml @ 100 mls/hr DAILY IVP Last administered on 12/30/17at 09:36; Start 12/21/17 at 09:00 Sodium Chloride 90 meq/Potassium Chloride 50 meq/ Potassium Phosphate 13.6 mmol/ Magnesium Sulfate 5 meq/ Calcium Gluconate 5 meq/ Multivitamins 10 ml/Chromium/ Copper/Manganese/ Seleni/Zn 1 ml/ Total Parenteral Nutrition/Amino Acids/ Dextrose/ Fat Emulsion Intravenous 1,512 ml @ 63 mls/hr TPN CONT IV Last administered on 12/20/17at 20:58; Start 12/20/17 at 22:00; Stop 12/21/17 at 21:59 ; Status DC Albumin Human 1,200 ml @ 0 mls/hr 1X ONCE IV Last administered on 12/21/17at 10:40; Start 12/21/17 at 08:45; Stop 12/21/17 at 08:46; Status DC Heparin Sodium (Porcine) (Heparin Sodium) 10,000 unit STK-MED ONCE .ROUTE ; Start 12/21/17 at 08:50; Stop 12/21/17 at 08:51; Status DC Diphenhydramine HCl (Benadryl) 50 mg STK-MED ONCE .ROUTE ; Start 12/21/17 at 11: 46; Stop 12/21/17 at 11:47; Status DC Diphenhydramine HCl (Benadryl) 50 mg 1X ONCE IVP Last administered on at 11:59; Start 12/21/17 at 12:00; Stop 12/21/17 at 12:01; Status DC Sodium Chloride 90 meq/Potassium Chloride 50 meq/ Potassium Phosphate 13.6 mmol/ Magnesium Sulfate 5 meq/ Calcium Gluconate 5 meq/ Multivitamins 10 ml/Chromium/ Copper/Manganese/ Seleni/Zn 1 ml/ Total Parenteral Nutrition/Amino Acids/ Dextrose/ Fat Emulsion Intravenous 1,512 ml @ 63 mls/hr TPN CONT IV Last administered on 12/21/17at 22:00; Start 12/21/17 at 22:00; Stop 12/22/17 at 21:59 ; Status DC Sodium Chloride 90 meq/Potassium Chloride 50 meq/ Potassium Phosphate 13.6 mmol/ Magnesium Sulfate 5 meq/ Calcium Gluconate 5 meq/ Multivitamins 10 ml/Chromium/ Copper/Manganese/ Seleni/Zn 1 ml/ Total Parenteral Nutrition/Amino Acids/ Dextrose/ Fat Emulsion Intravenous 1,512 ml @ 63 mls/hr TPN CONT IV Last administered on 12/22/17at 21:26; Start 12/22/17 at 22:00; Stop 12/23/17 at 21:59 ; Status DC Famotidine (Pepcid Vial) 20 mg QHS IVP Last administered on 12/29/17at 19:59; Start 12/23/17 at 21:00 Sodium Chloride 90 meq/Potassium Chloride 50 meq/ Potassium Phosphate 13.6 mmol/ Magnesium Sulfate 5 meq/ Calcium Gluconate 5 meq/ Multivitamins 10 ml/Chromium/ Copper/Manganese/ Seleni/Zn 1 ml/ Total Parenteral Nutrition/Amino Acids/ Dextrose/ Fat Emulsion Intravenous 1,512 ml @ 63 mls/hr TPN CONT IV Last administered on 12/23/17at 21:10; Start 12/23/17 at 22:00; Stop 12/24/17 at 21:59 ; Status DC Diphenhydramine HCl (Benadryl) 50 mg 1X ONCE IVP Last administered on at 17:33; Start 12/23/17 at 12:00; Stop 12/23/17 at 12:23; Status DC Albumin Human 1,500 ml @ 125 mls/hr 1X ONCE IV Last administered on at 17:34; Start 12/23/17 at 12:30; Stop 12/24/17 at 00:29; Status DC Heparin Sodium (Porcine) (Heparin Sodium) 10,000 unit [employer]MED ONCE .ROUTE ; Start 12/23/17 at 14:57; Stop 12/23/17 at 14:58; Status DC Oxycodone/ Acetaminophen (Percocet 5/325) 1 tab PRN Q6HRS PRN PO PAIN; Start 12/23/17 at 20:45; Status Cancel Sodium Chloride 90 meq/Potassium Chloride 50 meq/ Potassium Phosphate 13.6 mmol/ Magnesium Sulfate 5 meq/ Calcium Gluconate 5 meq/ Multivitamins 10 ml/Chromium/ Copper/Manganese/ Seleni/Zn 1 ml/ Total Parenteral Nutrition/Amino Acids/ Dextrose/ Fat Emulsion Intravenous 1,512 ml @ 63 mls/hr TPN CONT IV Last administered on 12/24/17at 21:11; Start 12/24/17 at 22:00; Stop 12/25/17 at 21:59 ; Status DC Calcium Gluconate 2000 mg/Dextrose 120 ml @ 220 mls/hr 1X ONCE IV Last administered on 12/25/17at 09:51; Start 12/25/17 at 10:00; Stop 12/25/17 at 10:32 ; Status DC Diphenhydramine HCl (Benadryl) 50 mg 1X ONCE IVP Last administered on at 14:16; Start 12/25/17 at 09:30; Stop 12/25/17 at 09:31; Status DC Heparin Sodium (Porcine) (Heparin Sodium) 3,000 unit 1X ONCE IV Last administered on 12/25/17at 09:15; Start 12/25/17 at 09:15; Stop 12/25/17 at 09:16 ; Status DC Albumin Human 1,500 ml @ 0 mls/hr 1X ONCE IV Last administered on 12/25/17at 14:19; Start 12/25/17 at 10:45; Stop 12/25/17 at 10:46; Status DC Albumin Human 200 ml @ 0 mls/hr 1X ONCE IV ; Start 12/25/17 at 10:45; Stop 12/25/17 at 10:46; Status DC Heparin Sodium (Porcine) (Heparin Sodium) 10,000 unit STK-MED ONCE .ROUTE ; Start 12/25/17 at 12:39; Stop 12/25/17 at 12:40; Status DC Insulin Human Lispro (HumaLOG) 0-5 UNITS TIDWMEALS SQ Last administered on 12/29at 10:30; Start 12/25/17 at 17:00; Stop 12/29/17 at 11:33; Status DC Dextrose (Dextrose 50%-Water Syringe) 12.5 gm PRN Q15MIN PRN IV SEE COMMENTS; Start 12/25/17 at 13:30 Sodium Chloride 90 meq/Potassium Chloride 50 meq/ Potassium Phosphate 13.6 mmol/ Magnesium Sulfate 5 meq/ Calcium Gluconate 5 meq/ Multivitamins 10 ml/Chromium/ Copper/Manganese/ Seleni/Zn 1 ml/ Total Parenteral Nutrition/Amino Acids/ Dextrose/ Fat Emulsion Intravenous 1,512 ml @ 63 mls/hr TPN CONT IV Last administered on 12/25/17at 21:42; Start 12/25/17 at 22:00; Stop 12/26/17 at 21:59 ; Status DC Barium Sulfate (Varibar Thin Liquid Apple) 148 gm 1X ONCE PO Last administered on 12/26/17at 13:57; Start 12/26/17 at 12:00; Stop 12/26/17 at 12:01 ; Status DC Sodium Chloride 90 meq/Potassium Chloride 50 meq/ Potassium Phosphate 13.6 mmol/ Magnesium Sulfate 5 meq/ Calcium Gluconate 5 meq/ Multivitamins 10 ml/Chromium/ Copper/Manganese/ Seleni/Zn 1 ml/ Total Parenteral Nutrition/Amino Acids/ Dextrose/ Fat Emulsion Intravenous 1,512 ml @ 63 mls/hr TPN CONT IV Last administered on 12/26/17at 21:37; Start 12/26/17 at 22:00; Stop 12/27/17 at 21:59 ; Status DC Vitamin A/Vitamin D (Vitamin A & D Ointment) 1 lila PRN Q1HR PRN TP SKIN PROTECTION Last administered on 12/26/17at 17:42; Start 12/26/17 at 14:15 Pyridostigmine Shipman (Regonol) 2.5 mg Q8H IV Last administered on 12/30/17at 00:18; Start 12/26/17 at 17:00; Stop 12/30/17 at 08:53; Status DC Calcium Gluconate 2000 mg/Dextrose 120 ml @ 220 mls/hr 1X ONCE IV ; Start 12/27/17 at 12:30; Stop 12/27/17 at 13:02; Status DC Sodium Chloride 90 meq/Potassium Chloride 50 meq/ Potassium Phosphate 13.6 mmol/ Magnesium Sulfate 5 meq/ Calcium Gluconate 5 meq/ Multivitamins 10 ml/Chromium/ Copper/Manganese/ Seleni/Zn 1 ml/ Total Parenteral Nutrition/Amino Acids/ Dextrose/ Fat Emulsion Intravenous 1,512 ml @ 63 mls/hr TPN CONT IV Last administered on 12/27/17at 23:26; Start 12/27/17 at 22:00; Stop 12/28/17 at 21:59 ; Status DC Albumin Human 1,500 ml @ 0 mls/hr 1X ONCE IV ; Start 12/27/17 at 15:00; Stop 12/27/17 at 15:01; Status DC Sodium Chloride 1,000 ml @ 1,000 mls/hr Q1H ONCE IV ; Start 12/27/17 at 14:30; Stop 12/27/17 at 15:29; Status DC Diphenhydramine HCl (Benadryl) 50 mg 1X ONCE IVP Last administered on at 16:43; Start 12/27/17 at 14:30; Stop 12/27/17 at 14:34; Status DC Heparin Sodium (Porcine) (Heparin Sodium) 10,000 unit STK-MED ONCE .ROUTE ; Start 12/27/17 at 14:42; Stop 12/27/17 at 14:43; Status DC Sodium Chloride 90 meq/Potassium Chloride 50 meq/ Potassium Phosphate 13.6 mmol/ Magnesium Sulfate 5 meq/ Calcium Gluconate 5 meq/ Multivitamins 10 ml/Chromium/ Copper/Manganese/ Seleni/Zn 1 ml/ Total Parenteral Nutrition/Amino Acids/ Dextrose/ Fat Emulsion Intravenous 1,512 ml @ 63 mls/hr TPN CONT IV Last administered on 12/28/17at 22:03; Start 12/28/17 at 22:00; Stop 12/29/17 at 21:59 ; Status DC Mirtazapine (Remeron) 15 mg QHS PO ; Start 12/29/17 at 21:00 Albumin Human 1,000 ml @ 0 mls/hr 1X ONCE IV ; Start 12/29/17 at 11:15; Stop 12/29/17 at 11:16; Status DC Calcium Gluconate (Calcium Gluconate) 1,000 mg 1X ONCE IV ; Start 12/29/17 at 11:15; Stop 12/29/17 at 11:16; Status DC Diphenhydramine HCl (Benadryl) 25 mg 1X ONCE IV ; Start 12/29/17 at 11:15; Stop 12/29/17 at 11:16; Status DC Insulin Human Lispro (HumaLOG) 0-5 UNITS Q6HRS SQ Last administered on at 06:19; Start 12/29/17 at 18:00 Sodium Chloride 90 meq/Potassium Chloride 50 meq/ Potassium Phosphate 13.6 mmol/ Magnesium Sulfate 5 meq/ Calcium Gluconate 5 meq/ Multivitamins 10 ml/Chromium/ Copper/Manganese/ Seleni/Zn 1 ml/ Total Parenteral Nutrition/Amino Acids/ Dextrose/ Fat Emulsion Intravenous 1,512 ml @ 63 mls/hr TPN CONT IV Last administered on 12/29/17at 21:58; Start 12/29/17 at 22:00; Stop 12/30/17 at 21:59 Diphenhydramine HCl (Benadryl) 25 mg PRN Q6HRS PRN IVP ITCHING Last administered on 12/29/17at 22:04; Start 12/29/17 at 21:30 Pyridostigmine [place] (Regonol) 2.5 mg Q6H IV ; Start 12/30/17 at 13:00 Active Scripts Active Reported Amoxicillin 875 Mg Tablet 1 Tab PO BID Levothyroxine Sodium 25 Mcg Tablet 1 Tab PO DAILY Proair Hfa Inhaler (Albuterol Sulfate) 8.5 Gm Hfa.aer.ad 1 Puff INH PRN Q6HRS PRN [kaitlib fe] Hydrocodone-Apap 7.5-325/15 Soln (Hydrocodone Bit/Acetaminophen) 15 Ml Solution 15 Ml PO PRN Q4HRS PRN Prednisone 50 Mg Tablet 1 Tab PO DAILY Fluticasone Propionate Nasal [place] (Fluticasone Propionate) 16 Gm Eugene.susp 1 Eugene NS DAILY [zoloft] [ativan] Vitals/I & O Vital Sign - Last 24 Hours 12/29/17 12/29/17 12/29/17 12/29/17 11:00 12:41 15:41 16:11 Temp 98.1 98.1 Pulse 77 Resp 16 B/P (MAP) 142/93 (109) Pulse Ox 97 97 97 97 O2 Delivery Room Air Room Air Room Air 12/29/17 12/29/17 12/29/17 12/29/17 19:02 19:34 20:00 22:03 Temp 97.9 97.9 Pulse 129 Resp 16 B/P (MAP) 115/75 (88) Pulse Ox 97 94 O2 Delivery Room Air Room Air Room Air Room Air 12/29/17 12/30/17 12/30/17 12/30/17 23:01 00:18 03:42 04:43 Temp 98.0 98.0 Pulse 97 69 Resp 16 16 B/P (MAP) 134/90 (105) 118/71 (87) Pulse Ox 97 96 O2 Delivery Room Air Room Air Room Air Room Air 12/30/17 12/30/17 12/30/17 12/30/17 07:00 08:00 08:01 09:32 Temp 97.5 97.5 Pulse 85 Resp 17 18 B/P (MAP) 114/77 (89) Pulse Ox 97 97 O2 Delivery Room Air Room Air Room Air Room Air Intake and Output 12/29/17 12/29/17 12/30/17 14:59 22:59 06:59 Intake Total 0 ml 0 ml Balance 0 ml 0 ml GAURAV BARONE MD Dec 30, 2017 10:31
[2017-12-30 10:38] VITALS: BP 129/77
--- NOTE | 2017-12-30 12:32 | PDOC ---
Renal-Progress Notes Subjective Notes Notes OVERALL SLIGHTLY BETTER History of Present Illness Hx of present illness STABLE Vitals Vitals Vital Signs Date Time Temp Pulse Resp B/P (MAP) Pulse Ox O2 Delivery O2 Flow Rate FiO2 12/30/17 10:38 97.7 73 16 129/77 (94) 97 Room Air 97.7 Weight Weight [ ] I.O. Intake and Output Intake and Output 12/30/17 07:00 Intake Total 0 ml Balance 0 ml Intake Oral 0 ml # Voids 7 Labs Labs Laboratory Tests Test 12/29/17 17:39 12/30/17 00:08 12/30/17 04:30 12/30/17 06:13 Glucose (Fingerstick) 234 mg/dL (70-99) 194 mg/dL (70-99) 219 mg/dL (70-99) White Blood Count 18.7 x10^3/uL (4.0-11.0) Red Blood Count 5.33 x10^6/uL (3.50-5.40) Hemoglobin 15.3 g/dL (12.0-15.5) Hematocrit 44.9 % (36.0-47.0) Mean Corpuscular Volume 84 fL (79-100) Mean Corpuscular Hemoglobin 29 pg (25-35) Mean Corpuscular Hemoglobin Concent 34 g/dL (31-37) Red Cell Distribution Width 12.5 % (11.5-14.5) Platelet Count 151 x10^3/uL (140-400) Neutrophils (%) (Auto) 85 % (31-73) Lymphocytes (%) (Auto) 6 % (24-48) Monocytes (%) (Auto) 8 % (0-9) Eosinophils (%) (Auto) 0 % (0-3) Basophils (%) (Auto) 0 % (0-3) Neutrophils # (Auto) 16.0 x10^3uL (1.8-7.7) Lymphocytes # (Auto) 1.1 x10^3/uL (1.0-4.8) Monocytes # (Auto) 1.6 x10^3/uL (0.0-1.1) Eosinophils # (Auto) 0.0 x10^3/uL (0.0-0.7) Basophils # (Auto) 0.0 x10^3/uL (0.0-0.2) Segmented Neutrophils % 89 % (35-66) Band Neutrophils % 1 % (0-9) Lymphocytes % 7 % (24-48) Monocytes % 3 % (0-10) Platelet Estimate Adequate (ADEQUATE) Sodium Level 140 mmol/L (136-145) Potassium Level 4.6 mmol/L (3.5-5.1) Chloride Level 105 mmol/L (98-107) Carbon Dioxide Level 28 mmol/L (21-32) Anion Gap 7 (6-14) Blood Urea Nitrogen 27 mg/dL (7-20) Creatinine 0.6 mg/dL (0.6-1.0) Estimated GFR (Cockcroft-Gault) 123.9 BUN/Creatinine Ratio 45 (6-20) Glucose Level 186 mg/dL (70-99) Calcium Level 7.9 mg/dL (8.5-10.1) Ionized Calcium 1.14 mmol/L (1.13-1.32) Phosphorus Level 4.1 mg/dL (2.6-4.7) Magnesium Level 2.2 mg/dL (1.8-2.4) Total Bilirubin 0.8 mg/dL (0.2-1.0) Aspartate Amino Transf (AST/SGOT) 42 U/L (15-37) Alanine Aminotransferase (ALT/SGPT) 126 U/L (14-59) Alkaline Phosphatase 39 U/L (46-116) Creatine Kinase 46 U/L (26-192) Total Protein 5.1 g/dL (6.4-8.2) Albumin 3.2 g/dL (3.4-5.0) Albumin/Globulin Ratio 1.7 (1.0-1.7) Triglycerides Level 248 mg/dL (0-150) Vitamin B12 Level 431 pg/mL (247-911) Review of Systems Constitutional: yes: weakness, alert, oriented Ears/Nose/Throat: Yes: no symptom reported Eyes: Yes: no symptom reported Pulmonary: Yes no symptom reported Cardiovascular: Yes no symptom reported Genitourinary: Yes: no symptom reported Musculoskeletal: Yes: no symptom reported, other (GENERALIZED WEAKNESS) Psychiatric/Neurological: Yes: tingling, weakness Endocrine: Yes: no symptom reported Hematologic/Lymphatic: Yes: no symptom reported Physical Exam General Appearance: no apparent distress Skin: warm Respiratory: bilateral CTA Heart: S1S2, RRR Abdomen: soft, bowel sounds present Genitourinary: bladder flat Extremities: pulses present, no edema, atrophy Neurology: alert, oriented, follow commands, Ext weakness Assessment Assessment IMP M GRAVIS-SYMPTOMS ARE SLIGHTLY BETTER PER PT DIPLOPIA-BETTER DYSPHAGIA PLAN TPE TOMORROW LABS IN AM [facility] IF NEEDED PROB PEG PENDING CONT TPN WILL FOLLOW RICHARDSON FORD MD Dec 30, 2017 12:32
--- NOTE | 2017-12-30 13:42 | RAD ---
MRI of the brain without contrast 12/30/2017 Clinical History: Myasthenia gravis. Dysphagia. Technique: Unenhanced T1-weighted sagittal and axial, T2-weighted axial and coronal and FLAIR, gradient echo and diffusion-weighted axial images of the brain were obtained. Findings: Comparison is made to patient's CT scan of the head dated 12/17/2017. The ventricles and sulci are within normal limits in size and configuration. No area of abnormal signal intensity is seen involving brain parenchyma. No extra-axial fluid collection is seen. There is no MRI evidence of acute ischemia/infarction. The paranasal sinuses are clear. Normal flow voids are seen within the major vascular structures surrounding the brain parenchyma. Impression: Negative study. Electronically signed by: Armando Pichardo MD (12/30/2017 1:39 PM) [id number]
[2017-12-30] MEDS: TPN PER PHARMACY MC PRN (14:34)
[2017-12-30 14:41] VITALS: BP 131/84
[2017-12-30] MEDS: diphenhydrAMINE 50 MG/ML VIAL IVP PRN (16:34)
[2017-12-30 19:42] VITALS: BP 116/76
[2017-12-30] MEDS: MIRTAZAPINE 15 MG TABLET PO SCH (21:00)
[2017-12-30] MEDS: FAMOTIDINE 20 MG/2 ML VIAL IVP SCH (21:36)
[2017-12-30] MEDS ORDERED: TOTAL PARENTERAL NUTRITION IV SCH ×10 (22:00)
[2017-12-30] MEDS ORDERED: [UNRECOGNIZED DRUG - OTHER] IV SCH ×10 (22:00)
[2017-12-30] MEDS ORDERED: AMINO ACIDS IV SCH ×10 (22:00)
[2017-12-30] MEDS ORDERED: DEXTROSE 70% IV SCH ×10 (22:00)
[2017-12-30 23:24] VITALS: BP 127/68
[2017-12-31] MEDS: MORPHINE SULFATE 2 MG/ML VIAL. IV PRN ×6 (02:00→21:57)
[2017-12-31] MEDS: PYRIDOSTIGMINE BROMIDE 10 MG/2 ML AMPUL. IV SCH ×4 (02:01→17:32)
[2017-12-31 03:26] VITALS: BP 125/69
[2017-12-31 05:24] LABS: HEMATOCRIT 35.1 % (36.0-47.0); HEMOGLOBIN 11.9 g/dL (12.0-15.5); RED BLOOD COUNT 4.16 x10^6/uL (3.50-5.40); RED CELL DISTRIBUTION WIDTH 12.3 % (11.5-14.5); WHITE BLOOD COUNT 12.5 x10^3/uL (4.0-11.0)
[2017-12-31] MEDS: INSULIN LISPRO 300 UNITS/3 ML INSULN.PEN. SQ SCH ×3 (06:00→18:00)
[2017-12-31 07:00] VITALS: BP 126/71
[2017-12-31] MEDS: NORMAL SALINE IVP SCH (08:43)
[2017-12-31] MEDS: FLUTICASONE 50MCG/NASAL SPRAY 16GM BOTTLE. NS SCH (08:43)
[2017-12-31] MEDS: LEVOTHYROXINE SODIUM IVP SCH (08:43)
[2017-12-31] MEDS: methylPREDNISolone SOD SUCC PF 40 MG/ML VIAL. IV SCH ×2 (08:43→19:56)
[2017-12-31 10:26] LABS: CALCIUM 8.1 mg/dL (8.5-10.1); CREATININE 0.5 mg/dL (0.6-1.0); GFR 152.9; POTASSIUM 5.1 mmol/L (3.5-5.1)
[2017-12-31] MEDS ORDERED: CALCIUM GLUCONATE 1,000 MG/10 ML VIAL. IVP ONE (10:30)
[2017-12-31] MEDS ORDERED: diphenhydrAMINE 50 MG/ML VIAL IVP ONE (10:30)
[2017-12-31] MEDS ORDERED: CALCIUM GLUCONATE 2,000 MG in IV DEXTROSE 5% 100ML 100 ML IV ONE (11:00)
--- NOTE | 2017-12-31 11:12 | PDOC ---
Subjective: Subjective: Feels better overall, says taking some more ice chips, would like to proceed w/ PEG placement. Objective: Objective: Discussed w/ RN - hoping for PEG tomorrow. Vital Signs: Vital Signs Date Time Temp Pulse Resp B/P (MAP) Pulse Ox O2 Delivery O2 Flow Rate FiO2 12/31/17 08:00 Room Air 12/31/17 07:00 97.7 58 18 126/71 (89) 96 97.7 Labs: Laboratory Tests Test 12/30/17 13:07 12/30/17 18:23 12/30/17 23:06 12/31/17 05:09 Glucose (Fingerstick) 150 mg/dL 185 mg/dL 187 mg/dL White Blood Count 12.5 x10^3/uL Red Blood Count 4.16 x10^6/uL Hemoglobin 11.9 g/dL Hematocrit 35.1 % Mean Corpuscular Volume 84 fL Mean Corpuscular Hemoglobin 29 pg Mean Corpuscular Hemoglobin Concent 34 g/dL Red Cell Distribution Width 12.3 % Platelet Count 106 x10^3/uL Fibrinogen 107 mg/dL Sodium Level 135 mmol/L Potassium Level 5.1 mmol/L Chloride Level 102 mmol/L Carbon Dioxide Level 31 mmol/L Anion Gap 2 Blood Urea Nitrogen 21 mg/dL Creatinine 0.5 mg/dL Estimated GFR (Cockcroft-Gault) 152.9 Glucose Level 336 mg/dL Calcium Level 8.1 mg/dL Magnesium Level 2.2 mg/dL Test 12/31/17 06:14 Glucose (Fingerstick) 178 mg/dL PE: GEN: NAD, was sleeping LUNGS: CTAB HEART: RRR ABD: S/ND/NT NEURO/PSYCH: A & O 3, drowsy A/P: Myasthenia gravis w/ dysphagia -- Reviewed w/ Dr. Sparrow - can proceed w/ PEG tomorrow around 12:00. Called to GI lab and SAMUEL. OFELIA QUINN Dec 31, 2017 11:12
--- NOTE | 2017-12-31 11:22 | PDOC ---
PROGRESS NOTES Chief Complaint Chief Complaint Myasthenia gravis - new diagnosis Diplopia Dysphagia Eze's thyroiditis Easy bruising History of Present Illness History of Present Illness Pt seen and examined Dw RN Rest with NAD Vitals Vitals Vital Signs Date Time Temp Pulse Resp B/P (MAP) Pulse Ox O2 Delivery O2 Flow Rate FiO2 12/31/17 08:00 Room Air 12/31/17 07:00 97.7 58 18 126/71 (89) 96 97.7 Physical Exam General: No acute distress Heart: Regular rate, Normal S1, Normal S2 Lungs: Clear Abdomen: Normal bowel sounds, Soft, No tenderness, No hepatosplenomegaly, No masses Extremities: No clubbing, No cyanosis Skin: No breakdown, No significant lesion, Other (lipoma at the nape) Labs LABS Laboratory Tests Test 12/30/17 13:07 12/30/17 18:23 12/30/17 23:06 12/31/17 05:09 Glucose (Fingerstick) 150 mg/dL (70-99) 185 mg/dL (70-99) 187 mg/dL (70-99) White Blood Count 12.5 x10^3/uL (4.0-11.0) Red Blood Count 4.16 x10^6/uL (3.50-5.40) Hemoglobin 11.9 g/dL (12.0-15.5) Hematocrit 35.1 % (36.0-47.0) Mean Corpuscular Volume 84 fL (79-100) Mean Corpuscular Hemoglobin 29 pg (25-35) Mean Corpuscular Hemoglobin Concent 34 g/dL (31-37) Red Cell Distribution Width 12.3 % (11.5-14.5) Platelet Count 106 x10^3/uL (140-400) Fibrinogen 107 mg/dL (200-440) Sodium Level 135 mmol/L (136-145) Potassium Level 5.1 mmol/L (3.5-5.1) Chloride Level 102 mmol/L (98-107) Carbon Dioxide Level 31 mmol/L (21-32) Anion Gap 2 (6-14) Blood Urea Nitrogen 21 mg/dL (7-20) Creatinine 0.5 mg/dL (0.6-1.0) Estimated GFR (Cockcroft-Gault) 152.9 Glucose Level 336 mg/dL (70-99) Calcium Level 8.1 mg/dL (8.5-10.1) Magnesium Level 2.2 mg/dL (1.8-2.4) Test 12/31/17 06:14 Glucose (Fingerstick) 178 mg/dL (70-99) Review of Systems Review of Systems Resting NAD Assessment and Plan Assessmemt and Plan Assessment: Myasthenia gravis - new diagnosis Diplopia Dysphagia Eze's thyroiditis Easy bruising Marijuana abuse Neck muscle weakness RUE weakness Sinusitis Plan: Plasma exchange TPN FFP prn Labs PT/OT Appreciated subspecialist input Comment Review of Relevant I have reviewed the following items maliha (where applicable) has been applied. Labs Laboratory Tests Test 12/29/17 12:01 12/29/17 17:39 12/30/17 00:08 12/30/17 04:30 Glucose (Fingerstick) 159 mg/dL (70-99) 234 mg/dL (70-99) 194 mg/dL (70-99) White Blood Count 18.7 x10^3/uL (4.0-11.0) Red Blood Count 5.33 x10^6/uL (3.50-5.40) Hemoglobin 15.3 g/dL (12.0-15.5) Hematocrit 44.9 % (36.0-47.0) Mean Corpuscular Volume 84 fL (79-100) Mean Corpuscular Hemoglobin 29 pg (25-35) Mean Corpuscular Hemoglobin Concent 34 g/dL (31-37) Red Cell Distribution Width 12.5 % (11.5-14.5) Platelet Count 151 x10^3/uL (140-400) Neutrophils (%) (Auto) 85 % (31-73) Lymphocytes (%) (Auto) 6 % (24-48) Monocytes (%) (Auto) 8 % (0-9) Eosinophils (%) (Auto) 0 % (0-3) Basophils (%) (Auto) 0 % (0-3) Neutrophils # (Auto) 16.0 x10^3uL (1.8-7.7) Lymphocytes # (Auto) 1.1 x10^3/uL (1.0-4.8) Monocytes # (Auto) 1.6 x10^3/uL (0.0-1.1) Eosinophils # (Auto) 0.0 x10^3/uL (0.0-0.7) Basophils # (Auto) 0.0 x10^3/uL (0.0-0.2) Segmented Neutrophils % 89 % (35-66) Band Neutrophils % 1 % (0-9) Lymphocytes % 7 % (24-48) Monocytes % 3 % (0-10) Platelet Estimate Adequate (ADEQUATE) Sodium Level 140 mmol/L (136-145) Potassium Level 4.6 mmol/L (3.5-5.1) Chloride Level 105 mmol/L (98-107) Carbon Dioxide Level 28 mmol/L (21-32) Anion Gap 7 (6-14) Blood Urea Nitrogen 27 mg/dL (7-20) Creatinine 0.6 mg/dL (0.6-1.0) Estimated GFR (Cockcroft-Gault) 123.9 BUN/Creatinine Ratio 45 (6-20) Glucose Level 186 mg/dL (70-99) Calcium Level 7.9 mg/dL (8.5-10.1) Ionized Calcium 1.14 mmol/L (1.13-1.32) Phosphorus Level 4.1 mg/dL (2.6-4.7) Magnesium Level 2.2 mg/dL (1.8-2.4) Total Bilirubin 0.8 mg/dL (0.2-1.0) Aspartate Amino Transf (AST/SGOT) 42 U/L (15-37) Alanine Aminotransferase (ALT/SGPT) 126 U/L (14-59) Alkaline Phosphatase 39 U/L (46-116) Creatine Kinase 46 U/L (26-192) Total Protein 5.1 g/dL (6.4-8.2) Albumin 3.2 g/dL (3.4-5.0) Albumin/Globulin Ratio 1.7 (1.0-1.7) Triglycerides Level 248 mg/dL (0-150) Vitamin B12 Level 431 pg/mL (247-911) Test 12/30/17 06:13 12/30/17 13:07 12/30/17 18:23 12/30/17 23:06 Glucose (Fingerstick) 219 mg/dL (70-99) 150 mg/dL (70-99) 185 mg/dL (70-99) 187 mg/dL (70-99) Test 12/31/17 05:09 12/31/17 06:14 White Blood Count 12.5 x10^3/uL (4.0-11.0) Red Blood Count 4.16 x10^6/uL (3.50-5.40) Hemoglobin 11.9 g/dL (12.0-15.5) Hematocrit 35.1 % (36.0-47.0) Mean Corpuscular Volume 84 fL (79-100) Mean Corpuscular Hemoglobin 29 pg (25-35) Mean Corpuscular Hemoglobin Concent 34 g/dL (31-37) Red Cell Distribution Width 12.3 % (11.5-14.5) Platelet Count 106 x10^3/uL (140-400) Fibrinogen 107 mg/dL (200-440) Sodium Level 135 mmol/L (136-145) Potassium Level 5.1 mmol/L (3.5-5.1) Chloride Level 102 mmol/L (98-107) Carbon Dioxide Level 31 mmol/L (21-32) Anion Gap 2 (6-14) Blood Urea Nitrogen 21 mg/dL (7-20) Creatinine 0.5 mg/dL (0.6-1.0) Estimated GFR (Cockcroft-Gault) 152.9 Glucose Level 336 mg/dL (70-99) Calcium Level 8.1 mg/dL (8.5-10.1) Magnesium Level 2.2 mg/dL (1.8-2.4) Glucose (Fingerstick) 178 mg/dL (70-99) Laboratory Tests Test 12/30/17 13:07 12/30/17 18:23 12/30/17 23:06 12/31/17 05:09 Glucose (Fingerstick) 150 mg/dL (70-99) 185 mg/dL (70-99) 187 mg/dL (70-99) White Blood Count 12.5 x10^3/uL (4.0-11.0) Red Blood Count 4.16 x10^6/uL (3.50-5.40) Hemoglobin 11.9 g/dL (12.0-15.5) Hematocrit 35.1 % (36.0-47.0) Mean Corpuscular Volume 84 fL (79-100) Mean Corpuscular Hemoglobin 29 pg (25-35) Mean Corpuscular Hemoglobin Concent 34 g/dL (31-37) Red Cell Distribution Width 12.3 % (11.5-14.5) Platelet Count 106 x10^3/uL (140-400) Fibrinogen 107 mg/dL (200-440) Sodium Level 135 mmol/L (136-145) Potassium Level 5.1 mmol/L (3.5-5.1) Chloride Level 102 mmol/L (98-107) Carbon Dioxide Level 31 mmol/L (21-32) Anion Gap 2 (6-14) Blood Urea Nitrogen 21 mg/dL (7-20) Creatinine 0.5 mg/dL (0.6-1.0) Estimated GFR (Cockcroft-Gault) 152.9 Glucose Level 336 mg/dL (70-99) Calcium Level 8.1 mg/dL (8.5-10.1) Magnesium Level 2.2 mg/dL (1.8-2.4) Test 12/31/17 06:14 Glucose (Fingerstick) 178 mg/dL (70-99) Medications Current Medications Meclizine HCl (Antivert) 25 mg 1X ONCE PO Last administered on 12/17/17at 20:00 ; Start 12/17/17 at 20:00; Stop 12/17/17 at 20:01; Status DC Sodium Chloride 1,000 ml @ 1,000 mls/hr 1X ONCE IV Last administered on at 20:35; Start 12/17/17 at 20:15; Stop 12/17/17 at 21:14; Status DC Ketorolac Tromethamine (Toradol 15mg Vial) 15 mg 1X ONCE IV Last administered on 12/17/17at 20:36; Start 12/17/17 at 20:15; Stop 12/17/17 at 20:16; Status DC Diphenhydramine HCl (Benadryl) 25 mg 1X ONCE PO Last administered on at 02:16; Start 12/18/17 at 02:15; Stop 12/18/17 at 02:18; Status DC Acetaminophen (Tylenol) 500 mg PRN Q6HRS PRN PO MILD PAIN / TEMP; Start at 09:00 Acetaminophen/ Codeine Phosphate (Tylenol #3) 1 tab PRN Q6HRS PRN PO PAIN; Start 12/18/17 at 09:00; Stop 12/18/17 at 12:08; Status DC Ibuprofen (Motrin) 600 mg PRN Q6HRS PRN PO INFLAMMATION; Start 12/18/17 at 09: 00; Stop 12/19/17 at 16:23; Status DC Ondansetron HCl (Zofran) 4 mg PRN Q6HRS PRN IV NAUSEA/VOMITING Last administered on 12/29/17at 18:46; Start 12/18/17 at 09:00 Ondansetron HCl (Zofran Odt) 4 mg PRN Q6HRS PRN PO NAUSEA/VOMITING; Start 12/18 at 09:00; Stop 12/18/17 at 12:08; Status DC Fluticasone Propionate (Flonase) 1 spray DAILY NS Last administered on at 08:43; Start 12/18/17 at 09:00 Acetaminophen/ Hydrocodone Bitart (Lortab 7.5-325/ 15ml Oral Solution) 15 ml PRN Q4HRS PRN PO MODERATE PAIN; Start 12/18/17 at 09:00; Stop 12/19/17 at 16:23 ; Status DC Non-Formulary Medication (Albuterol Sulfate (Proair Hfa Inhaler)) 1 puff PRN Q6HRS PRN INH SHORTNESS OF BREATH; Start 12/18/17 at 09:00; Status UNV Amoxicillin (Amoxil) 750 mg BID PO Last administered on 12/18/17at 21:02; Start 12/18/17 at 10:00; Stop 12/19/17 at 16:23; Status DC Levothyroxine Sodium (Synthroid) 25 mcg DAILY07 PO ; Start 12/18/17 at 10:30; Stop 12/18/17 at 12:08; Status DC Prednisone (Prednisone) 50 mg DAILY PO ; Start 12/18/17 at 10:00; Stop 12/18/17 at 12:08; Status DC Alprazolam (Xanax) 0.25 mg PRN Q8HRS PRN PO ANXIETY / AGITATION; Start at 09:00; Stop 12/19/17 at 08:14; Status DC Zolpidem Tartrate (Ambien) 5 mg PRN QHS PRN PO INSOMNIA; Start 12/18/17 at 09: 00; Stop 12/18/17 at 12:08; Status DC Cetirizine HCl (ZyrTEC) 10 mg DAILY PO ; Start 12/18/17 at 10:00; Stop 12/18/17 at 12:08; Status DC Non-Formulary Medication 1 ea 1X ONCE IV ; Start 12/18/17 at 09:00; Stop at 09:01; Status UNV Potassium Chloride/Dextrose/ Sod Cl 1,000 ml @ 80 mls/hr [id number] IV Last administered on 12/19/17at 10:00; Start 12/18/17 at 09:00; Stop 12/20/17 at 09:07 ; Status DC Albuterol Sulfate (Ventolin Neb Soln) 2.5 mg PRN Q6HRS PRN NEB SHORTNESS OF BREATH Last administered on 12/27/17at 19:26; Start 12/18/17 at 09:30 Iohexol (Omnipaque 300 Mg/ml) 75 ml 1X ONCE IV Last administered on 12/18/17at 10:31; Start 12/18/17 at 10:15; Stop 12/18/17 at 10:16; Status DC Info (CONTRAST GIVEN -- Rx MONITORING) 1 each PRN DAILY PRN MC SEE COMMENTS; Start 12/18/17 at 10:15; Stop 12/20/17 at 10:14; Status DC Levothyroxine Sodium 15 mcg/ Sodium Chloride 5 ml @ 100 mls/hr DAILY IVP Last administered on 12/20/17at 09:41; Start 12/18/17 at 12:30; Stop 12/20/17 at 11:44 ; Status DC Lorazepam (Ativan) 1 mg PRN Q4HRS PRN IV ANXIETY / AGITATION Last administered on 12/31/17at 02:00; Start 12/18/17 at 13:15 Alprazolam (Xanax) 0.25 mg PRN Q8HRS PRN NG ANXIETY / AGITATION Last administered on 12/19/17at 01:13; Start 12/18/17 at 13:15; Stop 12/19/17 at 16:23 ; Status DC Pyridostigmine Canvas (Mestinon) 60 mg BID NG Last administered on 12/18/17at 21:01; Start 12/18/17 at 13:00; Stop 12/19/17 at 16:23; Status DC Prednisone (Prednisone) 50 mg DAILY PO Last administered on 12/18/17at 16:03; Start 12/18/17 at 13:00; Stop 12/19/17 at 16:23; Status DC Famotidine (Pepcid) 20 mg QHS PO Last administered on 12/18/17at 21:01; Start at 21:00; Stop 12/19/17 at 16:23; Status DC Calcium Carbonate/ Glycine (Oscal) 500 mg TIDAFTMEAL PO ; Start 12/18/17 at 18: 00; Stop 12/19/17 at 16:23; Status DC Ergocalciferol (Vitamin D2) 50,000 unit MoTh PO ; Start 12/19/17 at 09:00; Stop 12/19/17 at 16:23; Status DC Lidocaine/Sodium Bicarbonate (Buffered Lidocaine 1%) 3 ml STK-MED ONCE .ROUTE ; Start 12/18/17 at 14:32; Stop 12/18/17 at 14:33; Status DC Heparin Sodium (Porcine) (Heparin Sodium) 10,000 unit STK-MED ONCE .ROUTE ; Start 12/18/17 at 14:32; Stop 12/18/17 at 14:33; Status DC Lidocaine/Sodium Bicarbonate (Buffered Lidocaine 1%) 3 ml 1X ONCE INJ Last administered on 12/18/17at 15:15; Start 12/18/17 at 15:15; Stop 12/18/17 at 15:16 ; Status DC Heparin Sodium (Porcine) (Heparin Sodium) 2,200 unit 1X ONCE INT CAT Last administered on 12/18/17at 15:15; Start 12/18/17 at 15:15; Stop 12/18/17 at 15:16 ; Status DC Scopolamine (Transderm-Scop) 1 patch 1X ONCE TD Last administered on at 21:41; Start 12/18/17 at 21:30; Stop 12/19/17 at 16:23; Status DC Albumin Human 1,500 ml @ 0 mls/hr 1X ONCE IV Last administered on 12/19/17at 11:38; Start 12/19/17 at 08:15; Stop 12/19/17 at 08:16; Status DC Heparin Sodium (Porcine) (Heparin Sodium) 10,000 unit STK-MED ONCE .ROUTE ; Start 12/19/17 at 08:40; Stop 12/19/17 at 08:41; Status DC Info (Tpn Per Pharmacy) 1 each PRN DAILY PRN MC SEE COMMENTS Last administered on 12/30/17at 14:34; Start 12/20/17 at 16:30 Pyridostigmine Canvas (Regonol) 2.5 mg Q12HR IV Last administered on at 09:56; Start 12/19/17 at 21:00; Stop 12/26/17 at 15:52; Status DC Methylprednisolone Sodium Succinate (SOLU-Medrol 40MG VIAL) 40 mg Q12HR IV Last administered on 12/31/17at 08:43; Start 12/19/17 at 21:00 Famotidine (Pepcid Vial) 20 mg QHS IVP Last administered on 12/19/17at 21:33; Start 12/19/17 at 21:00; Stop 12/20/17 at 11:44; Status DC Morphine Sulfate (Morphine Sulfate) 2 mg PRN Q2HR PRN IV MODERATE TO SEVERE PAIN Last administered on 12/31/17at 08:42; Start 12/19/17 at 23:15 Amino Acids/ Glycerin/ Electrolytes 1,000 ml @ 80 mls/hr [id number] IV Last administered on 12/20/17at 09:57; Start 12/20/17 at 09:30; Stop 12/20/17 at 11:44 ; Status DC Alteplase, Recombinant (Cathflo) 2 mg 1X ONCE IV Last administered on at 12:37; Start 12/20/17 at 11:45; Stop 12/20/17 at 11:46; Status DC Cyclobenzaprine HCl (Flexeril) 5 mg QID PO Last administered on 12/21/17at 09:10 ; Start 12/20/17 at 17:00; Stop 12/29/17 at 11:33; Status DC Cyclobenzaprine HCl (Flexeril) 10 mg 1X ONCE PO ; Start 12/20/17 at 11:45; Stop 12/20/17 at 11:53; Status DC Levothyroxine Sodium (Synthroid) 25 mcg DAILY07 PO ; Start 12/21/17 at 07:00; Stop 12/21/17 at 07:00; Status DC Levothyroxine Sodium 12.5 mcg/ Sodium Chloride 5 ml @ 100 mls/hr DAILY IVP Last administered on 12/31/17at 08:43; Start 12/21/17 at 09:00 Sodium Chloride 90 meq/Potassium Chloride 50 meq/ Potassium Phosphate 13.6 mmol/ Magnesium Sulfate 5 meq/ Calcium Gluconate 5 meq/ Multivitamins 10 ml/Chromium/ Copper/Manganese/ Seleni/Zn 1 ml/ Total Parenteral Nutrition/Amino Acids/ Dextrose/ Fat Emulsion Intravenous 1,512 ml @ 63 mls/hr TPN CONT IV Last administered on 12/20/17at 20:58; Start 12/20/17 at 22:00; Stop 12/21/17 at 21:59 ; Status DC Albumin Human 1,200 ml @ 0 mls/hr 1X ONCE IV Last administered on 12/21/17at 10:40; Start 12/21/17 at 08:45; Stop 12/21/17 at 08:46; Status DC Heparin Sodium (Porcine) (Heparin Sodium) 10,000 unit STK-MED ONCE .ROUTE ; Start 12/21/17 at 08:50; Stop 12/21/17 at 08:51; Status DC Diphenhydramine HCl (Benadryl) 50 mg STK-MED ONCE .ROUTE ; Start 12/21/17 at 11: 46; Stop 12/21/17 at 11:47; Status DC Diphenhydramine HCl (Benadryl) 50 mg 1X ONCE IVP Last administered on at 11:59; Start 12/21/17 at 12:00; Stop 12/21/17 at 12:01; Status DC Sodium Chloride 90 meq/Potassium Chloride 50 meq/ Potassium Phosphate 13.6 mmol/ Magnesium Sulfate 5 meq/ Calcium Gluconate 5 meq/ Multivitamins 10 ml/Chromium/ Copper/Manganese/ Seleni/Zn 1 ml/ Total Parenteral Nutrition/Amino Acids/ Dextrose/ Fat Emulsion Intravenous 1,512 ml @ 63 mls/hr TPN CONT IV Last administered on 12/21/17at 22:00; Start 12/21/17 at 22:00; Stop 12/22/17 at 21:59 ; Status DC Sodium Chloride 90 meq/Potassium Chloride 50 meq/ Potassium Phosphate 13.6 mmol/ Magnesium Sulfate 5 meq/ Calcium Gluconate 5 meq/ Multivitamins 10 ml/Chromium/ Copper/Manganese/ Seleni/Zn 1 ml/ Total Parenteral Nutrition/Amino Acids/ Dextrose/ Fat Emulsion Intravenous 1,512 ml @ 63 mls/hr TPN CONT IV Last administered on 12/22/17at 21:26; Start 12/22/17 at 22:00; Stop 12/23/17 at 21:59 ; Status DC Famotidine (Pepcid Vial) 20 mg QHS IVP Last administered on 12/30/17at 21:36; Start 12/23/17 at 21:00 Sodium Chloride 90 meq/Potassium Chloride 50 meq/ Potassium Phosphate 13.6 mmol/ Magnesium Sulfate 5 meq/ Calcium Gluconate 5 meq/ Multivitamins 10 ml/Chromium/ Copper/Manganese/ Seleni/Zn 1 ml/ Total Parenteral Nutrition/Amino Acids/ Dextrose/ Fat Emulsion Intravenous 1,512 ml @ 63 mls/hr TPN CONT IV Last administered on 12/23/17at 21:10; Start 12/23/17 at 22:00; Stop 12/24/17 at 21:59 ; Status DC Diphenhydramine HCl (Benadryl) 50 mg 1X ONCE IVP Last administered on at 17:33; Start 12/23/17 at 12:00; Stop 12/23/17 at 12:23; Status DC Albumin Human 1,500 ml @ 125 mls/hr 1X ONCE IV Last administered on at 17:34; Start 12/23/17 at 12:30; Stop 12/24/17 at 00:29; Status DC Heparin Sodium (Porcine) (Heparin Sodium) 10,000 unit STK-MED ONCE .ROUTE ; Start 12/23/17 at 14:57; Stop 12/23/17 at 14:58; Status DC Oxycodone/ Acetaminophen (Percocet 5/325) 1 tab PRN Q6HRS PRN PO PAIN; Start 12/23/17 at 20:45; Status Cancel Sodium Chloride 90 meq/Potassium Chloride 50 meq/ Potassium Phosphate 13.6 mmol/ Magnesium Sulfate 5 meq/ Calcium Gluconate 5 meq/ Multivitamins 10 ml/Chromium/ Copper/Manganese/ Seleni/Zn 1 ml/ Total Parenteral Nutrition/Amino Acids/ Dextrose/ Fat Emulsion Intravenous 1,512 ml @ 63 mls/hr TPN CONT IV Last administered on 12/24/17at 21:11; Start 12/24/17 at 22:00; Stop 12/25/17 at 21:59 ; Status DC Calcium Gluconate 2000 mg/Dextrose 120 ml @ 220 mls/hr 1X ONCE IV Last administered on 12/25/17at 09:51; Start 12/25/17 at 10:00; Stop 12/25/17 at 10:32 ; Status DC Diphenhydramine HCl (Benadryl) 50 mg 1X ONCE IVP Last administered on at 14:16; Start 12/25/17 at 09:30; Stop 12/25/17 at 09:31; Status DC Heparin Sodium (Porcine) (Heparin Sodium) 3,000 unit 1X ONCE IV Last administered on 12/25/17at 09:15; Start 12/25/17 at 09:15; Stop 12/25/17 at 09:16 ; Status DC Albumin Human 1,500 ml @ 0 mls/hr 1X ONCE IV Last administered on 12/25/17at 14:19; Start 12/25/17 at 10:45; Stop 12/25/17 at 10:46; Status DC Albumin Human 200 ml @ 0 mls/hr 1X ONCE IV ; Start 12/25/17 at 10:45; Stop 12/25/17 at 10:46; Status DC Heparin Sodium (Porcine) (Heparin Sodium) 10,000 unit STK-MED ONCE .ROUTE ; Start 12/25/17 at 12:39; Stop 12/25/17 at 12:40; Status DC Insulin Human Lispro (HumaLOG) 0-5 UNITS TIDWMEALS SQ Last administered on 12/29at 10:30; Start 12/25/17 at 17:00; Stop 12/29/17 at 11:33; Status DC Dextrose (Dextrose 50%-Water Syringe) 12.5 gm PRN Q15MIN PRN IV SEE COMMENTS; Start 12/25/17 at 13:30 Sodium Chloride 90 meq/Potassium Chloride 50 meq/ Potassium Phosphate 13.6 mmol/ Magnesium Sulfate 5 meq/ Calcium Gluconate 5 meq/ Multivitamins 10 ml/Chromium/ Copper/Manganese/ Seleni/Zn 1 ml/ Total Parenteral Nutrition/Amino Acids/ Dextrose/ Fat Emulsion Intravenous 1,512 ml @ 63 mls/hr TPN CONT IV Last administered on 12/25/17at 21:42; Start 12/25/17 at 22:00; Stop 12/26/17 at 21:59 ; Status DC Barium Sulfate (Varibar Thin Liquid Apple) 148 gm 1X ONCE PO Last administered on 12/26/17at 13:57; Start 12/26/17 at 12:00; Stop 12/26/17 at 12:01 ; Status DC Sodium Chloride 90 meq/Potassium Chloride 50 meq/ Potassium Phosphate 13.6 mmol/ Magnesium Sulfate 5 meq/ Calcium Gluconate 5 meq/ Multivitamins 10 ml/Chromium/ Copper/Manganese/ Seleni/Zn 1 ml/ Total Parenteral Nutrition/Amino Acids/ Dextrose/ Fat Emulsion Intravenous 1,512 ml @ 63 mls/hr TPN CONT IV Last administered on 12/26/17at 21:37; Start 12/26/17 at 22:00; Stop 12/27/17 at 21:59 ; Status DC Vitamin A/Vitamin D (Vitamin A & D Ointment) 1 lila PRN Q1HR PRN TP SKIN PROTECTION Last administered on 12/26/17at 17:42; Start 12/26/17 at 14:15 Pyridostigmine Canvas (Regonol) 2.5 mg Q8H IV Last administered on 12/30/17at 00:18; Start 12/26/17 at 17:00; Stop 12/30/17 at 08:53; Status DC Calcium Gluconate 2000 mg/Dextrose 120 ml @ 220 mls/hr 1X ONCE IV ; Start 12/27/17 at 12:30; Stop 12/27/17 at 13:02; Status DC Sodium Chloride 90 meq/Potassium Chloride 50 meq/ Potassium Phosphate 13.6 mmol/ Magnesium Sulfate 5 meq/ Calcium Gluconate 5 meq/ Multivitamins 10 ml/Chromium/ Copper/Manganese/ Seleni/Zn 1 ml/ Total Parenteral Nutrition/Amino Acids/ Dextrose/ Fat Emulsion Intravenous 1,512 ml @ 63 mls/hr TPN CONT IV Last administered on 12/27/17at 23:26; Start 12/27/17 at 22:00; Stop 12/28/17 at 21:59 ; Status DC Albumin Human 1,500 ml @ 0 mls/hr 1X ONCE IV ; Start 12/27/17 at 15:00; Stop 12/27/17 at 15:01; Status DC Sodium Chloride 1,000 ml @ 1,000 mls/hr Q1H ONCE IV ; Start 12/27/17 at 14:30; Stop 12/27/17 at 15:29; Status DC Diphenhydramine HCl (Benadryl) 50 mg 1X ONCE IVP Last administered on at 16:43; Start 12/27/17 at 14:30; Stop 12/27/17 at 14:34; Status DC Heparin Sodium (Porcine) (Heparin Sodium) 10,000 unit STK-MED ONCE .ROUTE ; Start 12/27/17 at 14:42; Stop 12/27/17 at 14:43; Status DC Sodium Chloride 90 meq/Potassium Chloride 50 meq/ Potassium Phosphate 13.6 mmol/ Magnesium Sulfate 5 meq/ Calcium Gluconate 5 meq/ Multivitamins 10 ml/Chromium/ Copper/Manganese/ Seleni/Zn 1 ml/ Total Parenteral Nutrition/Amino Acids/ Dextrose/ Fat Emulsion Intravenous 1,512 ml @ 63 mls/hr TPN CONT IV Last administered on 12/28/17at 22:03; Start 12/28/17 at 22:00; Stop 12/29/17 at 21:59 ; Status DC Mirtazapine (Remeron) 15 mg QHS PO ; Start 12/29/17 at 21:00 Albumin Human 1,000 ml @ 0 mls/hr 1X ONCE IV ; Start 12/29/17 at 11:15; Stop 12/29/17 at 11:16; Status DC Calcium Gluconate (Calcium Gluconate) 1,000 mg 1X ONCE IV ; Start 12/29/17 at 11:15; Stop 12/29/17 at 11:16; Status DC Diphenhydramine HCl (Benadryl) 25 mg 1X ONCE IV ; Start 12/29/17 at 11:15; Stop 12/29/17 at 11:16; Status DC Insulin Human Lispro (HumaLOG) 0-5 UNITS Q6HRS SQ Last administered on at 06:19; Start 12/29/17 at 18:00 Sodium Chloride 90 meq/Potassium Chloride 50 meq/ Potassium Phosphate 13.6 mmol/ Magnesium Sulfate 5 meq/ Calcium Gluconate 5 meq/ Multivitamins 10 ml/Chromium/ Copper/Manganese/ Seleni/Zn 1 ml/ Total Parenteral Nutrition/Amino Acids/ Dextrose/ Fat Emulsion Intravenous 1,512 ml @ 63 mls/hr TPN CONT IV Last administered on 12/29/17at 21:58; Start 12/29/17 at 22:00; Stop 12/30/17 at 21:59 ; Status DC Diphenhydramine HCl (Benadryl) 25 mg PRN Q6HRS PRN IVP ITCHING Last administered on 12/30/17at 16:34; Start 12/29/17 at 21:30 Pyridostigmine Canvas (Regonol) 2.5 mg Q6H IV Last administered on 12/31/17at 06:40; Start 12/30/17 at 13:00 Sodium Chloride 90 meq/Potassium Chloride 50 meq/ Potassium Phosphate 13.6 mmol/ Magnesium Sulfate 5 meq/ Calcium Gluconate 5 meq/ Multivitamins 10 ml/Chromium/ Copper/Manganese/ Seleni/Zn 1 ml/ Total Parenteral Nutrition/Amino Acids/ Dextrose/ Fat Emulsion Intravenous 1,512 ml @ 63 mls/hr TPN CONT IV Last administered on 12/30/17at 21:37; Start 12/30/17 at 22:00; Stop 12/31/17 at 21:59 Diphenhydramine HCl (Benadryl) 50 mg 1X ONCE IVP ; Start 12/31/17 at 10:30; Stop 12/31/17 at 10:31; Status DC Calcium Gluconate (Calcium Gluconate) 2,000 mg 1X ONCE IVP ; Start 12/31/17 at 10:30; Stop 12/31/17 at 10:31; Status UNV Calcium Gluconate 2000 mg/Dextrose 120 ml @ 240 mls/hr 1X ONCE IV ; Start 12/31/17 at 11:00; Stop 12/31/17 at 11:29 Active Scripts Active Reported Amoxicillin 875 Mg Tablet 1 Tab PO BID Levothyroxine Sodium 25 Mcg Tablet 1 Tab PO DAILY Proair Hfa Inhaler (Albuterol Sulfate) 8.5 Gm Hfa.aer.ad 1 Puff INH PRN Q6HRS PRN [kaitlib fe] Hydrocodone-Apap 7.5-325/15 Soln (Hydrocodone Bit/Acetaminophen) 15 Ml Solution 15 Ml PO PRN Q4HRS PRN Prednisone 50 Mg Tablet 1 Tab PO DAILY Fluticasone Propionate Nasal Jachin (Fluticasone Propionate) 16 Gm Jachin.susp 1 Jachin NS DAILY [zoloft] [ativan] Vitals/I & O Vital Sign - Last 24 Hours 12/30/17 12/30/17 12/30/17 12/30/17 13:14 13:39 14:41 16:51 Temp 97.8 97.8 Pulse 88 Resp 17 B/P (MAP) 131/84 (100) Pulse Ox 97 97 95 95 O2 Delivery Room Air Room Air Room Air Room Air 12/30/17 12/30/17 12/30/17 12/30/17 17:25 19:38 19:42 20:00 Temp 97.7 97.7 Pulse 82 Resp 18 B/P (MAP) 116/76 (89) Pulse Ox 95 O2 Delivery Room Air Room Air Room Air 12/30/17 12/30/17 12/31/17 12/31/17 21:53 23:24 02:00 02:30 Temp 97.6 97.6 Pulse 64 Resp 16 B/P (MAP) 127/68 (87) Pulse Ox 97 O2 Delivery Room Air Room Air Room Air Room Air 12/31/17 12/31/17 12/31/17 12/31/17 03:26 06:40 07:00 08:00 Temp 97.5 97.7 97.5 97.7 Pulse 78 58 Resp 20 18 B/P (MAP) 125/69 (87) 126/71 (89) Pulse Ox 96 96 O2 Delivery Room Air Room Air Room Air Room Air Intake and Output 12/30/17 12/30/17 12/31/17 15:00 23:00 07:00 Intake Total 0 ml Balance 0 ml EVELYN ARREGUIN III DO Dec 31, 2017 11:22
--- NOTE | 2017-12-31 11:34 | PDOC ---
PROGRESS NOTES Assessment Problems Medical Problems: (1) Diplopia Status: Acute (2) Marijuana abuse Status: Acute (3) Myasthenia gravis with acute exacerbation Status: Acute (4) Neck muscle weakness Status: Acute (5) RUE weakness Status: Acute (6) Sinusitis Status: Acute Myasthenia gravis, on steroids and 4 plasmaphereses Myasthenia serology is positive Chest CT negative for thymoma Also has Eze's thyroiditis Also has anxiety disorder Also has elevated transaminases and positive Hepatitis B surface anybody Brain MRI negative Plan Speech therapy, PT, OT Needs PEG, aim for placement tomorrow Monitor negative inspiratory force Plasmapheresis QOD, now plan on continuing today IV steroids Increased pyridostigmine to q6h Rehab screening, perhaps send there for 2 weeks, leave central line in, resume more plasmapheresis if not making further progress. Subjective Feels better Objective Vital Signs Date Time Temp Pulse Resp B/P (MAP) Pulse Ox O2 Delivery O2 Flow Rate FiO2 12/31/17 08:00 Room Air 12/31/17 07:00 97.7 58 18 126/71 (89) 96 97.7 Intake and Output 12/31/17 07:00 Intake Total 0 ml Balance 0 ml Intake Oral 0 ml # Voids 6 PHYSICAL EXAM Alert. Oriented to time, place and person. PERRL. EOMI. CN: no focal findings. no diplopia. Voice is strong, but still somewhat hypernasal Muscle tone: normal. Muscle strength: 5/5, 5-/5 right arm, 5-/5 neck extension weakness DTR: 2+ Plantar reflex: Flexor Gait: not examined in bed. Sensory exam: no abnormal findings. No cerebellar signs elicited. Review of Relevant I have reviewed the following items maliha (where applicable) has been applied. Labs Laboratory Tests Test 12/29/17 12:01 12/29/17 17:39 12/30/17 00:08 12/30/17 04:30 Glucose (Fingerstick) 159 mg/dL (70-99) 234 mg/dL (70-99) 194 mg/dL (70-99) White Blood Count 18.7 x10^3/uL (4.0-11.0) Red Blood Count 5.33 x10^6/uL (3.50-5.40) Hemoglobin 15.3 g/dL (12.0-15.5) Hematocrit 44.9 % (36.0-47.0) Mean Corpuscular Volume 84 fL (79-100) Mean Corpuscular Hemoglobin 29 pg (25-35) Mean Corpuscular Hemoglobin Concent 34 g/dL (31-37) Red Cell Distribution Width 12.5 % (11.5-14.5) Platelet Count 151 x10^3/uL (140-400) Neutrophils (%) (Auto) 85 % (31-73) Lymphocytes (%) (Auto) 6 % (24-48) Monocytes (%) (Auto) 8 % (0-9) Eosinophils (%) (Auto) 0 % (0-3) Basophils (%) (Auto) 0 % (0-3) Neutrophils # (Auto) 16.0 x10^3uL (1.8-7.7) Lymphocytes # (Auto) 1.1 x10^3/uL (1.0-4.8) Monocytes # (Auto) 1.6 x10^3/uL (0.0-1.1) Eosinophils # (Auto) 0.0 x10^3/uL (0.0-0.7) Basophils # (Auto) 0.0 x10^3/uL (0.0-0.2) Segmented Neutrophils % 89 % (35-66) Band Neutrophils % 1 % (0-9) Lymphocytes % 7 % (24-48) Monocytes % 3 % (0-10) Platelet Estimate Adequate (ADEQUATE) Sodium Level 140 mmol/L (136-145) Potassium Level 4.6 mmol/L (3.5-5.1) Chloride Level 105 mmol/L (98-107) Carbon Dioxide Level 28 mmol/L (21-32) Anion Gap 7 (6-14) Blood Urea Nitrogen 27 mg/dL (7-20) Creatinine 0.6 mg/dL (0.6-1.0) Estimated GFR (Cockcroft-Gault) 123.9 BUN/Creatinine Ratio 45 (6-20) Glucose Level 186 mg/dL (70-99) Calcium Level 7.9 mg/dL (8.5-10.1) Ionized Calcium 1.14 mmol/L (1.13-1.32) Phosphorus Level 4.1 mg/dL (2.6-4.7) Magnesium Level 2.2 mg/dL (1.8-2.4) Total Bilirubin 0.8 mg/dL (0.2-1.0) Aspartate Amino Transf (AST/SGOT) 42 U/L (15-37) Alanine Aminotransferase (ALT/SGPT) 126 U/L (14-59) Alkaline Phosphatase 39 U/L (46-116) Creatine Kinase 46 U/L (26-192) Total Protein 5.1 g/dL (6.4-8.2) Albumin 3.2 g/dL (3.4-5.0) Albumin/Globulin Ratio 1.7 (1.0-1.7) Triglycerides Level 248 mg/dL (0-150) Vitamin B12 Level 431 pg/mL (247-911) Test 12/30/17 06:13 12/30/17 13:07 12/30/17 18:23 12/30/17 23:06 Glucose (Fingerstick) 219 mg/dL (70-99) 150 mg/dL (70-99) 185 mg/dL (70-99) 187 mg/dL (70-99) Test 12/31/17 05:09 12/31/17 06:14 White Blood Count 12.5 x10^3/uL (4.0-11.0) Red Blood Count 4.16 x10^6/uL (3.50-5.40) Hemoglobin 11.9 g/dL (12.0-15.5) Hematocrit 35.1 % (36.0-47.0) Mean Corpuscular Volume 84 fL (79-100) Mean Corpuscular Hemoglobin 29 pg (25-35) Mean Corpuscular Hemoglobin Concent 34 g/dL (31-37) Red Cell Distribution Width 12.3 % (11.5-14.5) Platelet Count 106 x10^3/uL (140-400) Fibrinogen 107 mg/dL (200-440) Sodium Level 135 mmol/L (136-145) Potassium Level 5.1 mmol/L (3.5-5.1) Chloride Level 102 mmol/L (98-107) Carbon Dioxide Level 31 mmol/L (21-32) Anion Gap 2 (6-14) Blood Urea Nitrogen 21 mg/dL (7-20) Creatinine 0.5 mg/dL (0.6-1.0) Estimated GFR (Cockcroft-Gault) 152.9 Glucose Level 336 mg/dL (70-99) Calcium Level 8.1 mg/dL (8.5-10.1) Magnesium Level 2.2 mg/dL (1.8-2.4) Glucose (Fingerstick) 178 mg/dL (70-99) Laboratory Tests Test 12/30/17 13:07 12/30/17 18:23 12/30/17 23:06 12/31/17 05:09 Glucose (Fingerstick) 150 mg/dL (70-99) 185 mg/dL (70-99) 187 mg/dL (70-99) White Blood Count 12.5 x10^3/uL (4.0-11.0) Red Blood Count 4.16 x10^6/uL (3.50-5.40) Hemoglobin 11.9 g/dL (12.0-15.5) Hematocrit 35.1 % (36.0-47.0) Mean Corpuscular Volume 84 fL (79-100) Mean Corpuscular Hemoglobin 29 pg (25-35) Mean Corpuscular Hemoglobin Concent 34 g/dL (31-37) Red Cell Distribution Width 12.3 % (11.5-14.5) Platelet Count 106 x10^3/uL (140-400) Fibrinogen 107 mg/dL (200-440) Sodium Level 135 mmol/L (136-145) Potassium Level 5.1 mmol/L (3.5-5.1) Chloride Level 102 mmol/L (98-107) Carbon Dioxide Level 31 mmol/L (21-32) Anion Gap 2 (6-14) Blood Urea Nitrogen 21 mg/dL (7-20) Creatinine 0.5 mg/dL (0.6-1.0) Estimated GFR (Cockcroft-Gault) 152.9 Glucose Level 336 mg/dL (70-99) Calcium Level 8.1 mg/dL (8.5-10.1) Magnesium Level 2.2 mg/dL (1.8-2.4) Test 12/31/17 06:14 Glucose (Fingerstick) 178 mg/dL (70-99) Medications Current Medications Meclizine HCl (Antivert) 25 mg 1X ONCE PO Last administered on 12/17/17at 20:00 ; Start 12/17/17 at 20:00; Stop 12/17/17 at 20:01; Status DC Sodium Chloride 1,000 ml @ 1,000 mls/hr 1X ONCE IV Last administered on at 20:35; Start 12/17/17 at 20:15; Stop 12/17/17 at 21:14; Status DC Ketorolac Tromethamine (Toradol 15mg Vial) 15 mg 1X ONCE IV Last administered on 12/17/17at 20:36; Start 12/17/17 at 20:15; Stop 12/17/17 at 20:16; Status DC Diphenhydramine HCl (Benadryl) 25 mg 1X ONCE PO Last administered on at 02:16; Start 12/18/17 at 02:15; Stop 12/18/17 at 02:18; Status DC Acetaminophen (Tylenol) 500 mg PRN Q6HRS PRN PO MILD PAIN / TEMP; Start at 09:00 Acetaminophen/ Codeine Phosphate (Tylenol #3) 1 tab PRN Q6HRS PRN PO PAIN; Start 12/18/17 at 09:00; Stop 12/18/17 at 12:08; Status DC Ibuprofen (Motrin) 600 mg PRN Q6HRS PRN PO INFLAMMATION; Start 12/18/17 at 09: 00; Stop 12/19/17 at 16:23; Status DC Ondansetron HCl (Zofran) 4 mg PRN Q6HRS PRN IV NAUSEA/VOMITING Last administered on 12/29/17at 18:46; Start 12/18/17 at 09:00 Ondansetron HCl (Zofran Odt) 4 mg PRN Q6HRS PRN PO NAUSEA/VOMITING; Start 12/18 at 09:00; Stop 12/18/17 at 12:08; Status DC Fluticasone Propionate (Flonase) 1 spray DAILY NS Last administered on at 08:43; Start 12/18/17 at 09:00 Acetaminophen/ Hydrocodone Bitart (Lortab 7.5-325/ 15ml Oral Solution) 15 ml PRN Q4HRS PRN PO MODERATE PAIN; Start 12/18/17 at 09:00; Stop 12/19/17 at 16:23 ; Status DC Non-Formulary Medication (Albuterol Sulfate (Proair Hfa Inhaler)) 1 puff PRN Q6HRS PRN INH SHORTNESS OF BREATH; Start 12/18/17 at 09:00; Status UNV Amoxicillin (Amoxil) 750 mg BID PO Last administered on 12/18/17at 21:02; Start 12/18/17 at 10:00; Stop 12/19/17 at 16:23; Status DC Levothyroxine Sodium (Synthroid) 25 mcg DAILY07 PO ; Start 12/18/17 at 10:30; Stop 12/18/17 at 12:08; Status DC Prednisone (Prednisone) 50 mg DAILY PO ; Start 12/18/17 at 10:00; Stop 12/18/17 at 12:08; Status DC Alprazolam (Xanax) 0.25 mg PRN Q8HRS PRN PO ANXIETY / AGITATION; Start at 09:00; Stop 12/19/17 at 08:14; Status DC Zolpidem Tartrate (Ambien) 5 mg PRN QHS PRN PO INSOMNIA; Start 12/18/17 at 09: 00; Stop 12/18/17 at 12:08; Status DC Cetirizine HCl (ZyrTEC) 10 mg DAILY PO ; Start 12/18/17 at 10:00; Stop 12/18/17 at 12:08; Status DC Non-Formulary Medication 1 ea 1X ONCE IV ; Start 12/18/17 at 09:00; Stop at 09:01; Status UNV Potassium Chloride/Dextrose/ Sod Cl 1,000 ml @ 80 mls/hr [id number] IV Last administered on 12/19/17at 10:00; Start 12/18/17 at 09:00; Stop 12/20/17 at 09:07 ; Status DC Albuterol Sulfate (Ventolin Neb Soln) 2.5 mg PRN Q6HRS PRN NEB SHORTNESS OF BREATH Last administered on 12/27/17at 19:26; Start 12/18/17 at 09:30 Iohexol (Omnipaque 300 Mg/ml) 75 ml 1X ONCE IV Last administered on 12/18/17at 10:31; Start 12/18/17 at 10:15; Stop 12/18/17 at 10:16; Status DC Info (CONTRAST GIVEN -- Rx MONITORING) 1 each PRN DAILY PRN MC SEE COMMENTS; Start 12/18/17 at 10:15; Stop 12/20/17 at 10:14; Status DC Levothyroxine Sodium 15 mcg/ Sodium Chloride 5 ml @ 100 mls/hr DAILY IVP Last administered on 12/20/17at 09:41; Start 12/18/17 at 12:30; Stop 12/20/17 at 11:44 ; Status DC Lorazepam (Ativan) 1 mg PRN Q4HRS PRN IV ANXIETY / AGITATION Last administered on 12/31/17at 02:00; Start 12/18/17 at 13:15 Alprazolam (Xanax) 0.25 mg PRN Q8HRS PRN NG ANXIETY / AGITATION Last administered on 12/19/17at 01:13; Start 12/18/17 at 13:15; Stop 12/19/17 at 16:23 ; Status DC Pyridostigmine [place] (Mestinon) 60 mg BID NG Last administered on 12/18/17at 21:01; Start 12/18/17 at 13:00; Stop 12/19/17 at 16:23; Status DC Prednisone (Prednisone) 50 mg DAILY PO Last administered on 12/18/17at 16:03; Start 12/18/17 at 13:00; Stop 12/19/17 at 16:23; Status DC Famotidine (Pepcid) 20 mg QHS PO Last administered on 12/18/17at 21:01; Start at 21:00; Stop 12/19/17 at 16:23; Status DC Calcium Carbonate/ Glycine (Oscal) 500 mg TIDAFTMEAL PO ; Start 12/18/17 at 18: 00; Stop 12/19/17 at 16:23; Status DC Ergocalciferol (Vitamin D2) 50,000 unit MoTh PO ; Start 12/19/17 at 09:00; Stop 12/19/17 at 16:23; Status DC Lidocaine/Sodium Bicarbonate (Buffered Lidocaine 1%) 3 ml STK-MED ONCE .ROUTE ; Start 12/18/17 at 14:32; Stop 12/18/17 at 14:33; Status DC Heparin Sodium (Porcine) (Heparin Sodium) 10,000 unit STK-MED ONCE .ROUTE ; Start 12/18/17 at 14:32; Stop 12/18/17 at 14:33; Status DC Lidocaine/Sodium Bicarbonate (Buffered Lidocaine 1%) 3 ml 1X ONCE INJ Last administered on 12/18/17at 15:15; Start 12/18/17 at 15:15; Stop 12/18/17 at 15:16 ; Status DC Heparin Sodium (Porcine) (Heparin Sodium) 2,200 unit 1X ONCE INT CAT Last administered on 12/18/17at 15:15; Start 12/18/17 at 15:15; Stop 12/18/17 at 15:16 ; Status DC Scopolamine (Transderm-Scop) 1 patch 1X ONCE TD Last administered on at 21:41; Start 12/18/17 at 21:30; Stop 12/19/17 at 16:23; Status DC Albumin Human 1,500 ml @ 0 mls/hr 1X ONCE IV Last administered on 12/19/17at 11:38; Start 12/19/17 at 08:15; Stop 12/19/17 at 08:16; Status DC Heparin Sodium (Porcine) (Heparin Sodium) 10,000 unit STK-MED ONCE .ROUTE ; Start 12/19/17 at 08:40; Stop 12/19/17 at 08:41; Status DC Info (Tpn Per Pharmacy) 1 each PRN DAILY PRN MC SEE COMMENTS Last administered on 12/30/17at 14:34; Start 12/20/17 at 16:30 Pyridostigmine [place] (Regonol) 2.5 mg Q12HR IV Last administered on at 09:56; Start 12/19/17 at 21:00; Stop 12/26/17 at 15:52; Status DC Methylprednisolone Sodium Succinate (SOLU-Medrol 40MG VIAL) 40 mg Q12HR IV Last administered on 12/31/17at 08:43; Start 12/19/17 at 21:00 Famotidine (Pepcid Vial) 20 mg QHS IVP Last administered on 12/19/17at 21:33; Start 12/19/17 at 21:00; Stop 12/20/17 at 11:44; Status DC Morphine Sulfate (Morphine Sulfate) 2 mg PRN Q2HR PRN IV MODERATE TO SEVERE PAIN Last administered on 12/31/17at 08:42; Start 12/19/17 at 23:15 Amino Acids/ Glycerin/ Electrolytes 1,000 ml @ 80 mls/hr [id number] IV Last administered on 12/20/17at 09:57; Start 12/20/17 at 09:30; Stop 12/20/17 at 11:44 ; Status DC Alteplase, Recombinant (Cathflo) 2 mg 1X ONCE IV Last administered on at 12:37; Start 12/20/17 at 11:45; Stop 12/20/17 at 11:46; Status DC Cyclobenzaprine HCl (Flexeril) 5 mg QID PO Last administered on 12/21/17at 09:10 ; Start 12/20/17 at 17:00; Stop 12/29/17 at 11:33; Status DC Cyclobenzaprine HCl (Flexeril) 10 mg 1X ONCE PO ; Start 12/20/17 at 11:45; Stop 12/20/17 at 11:53; Status DC Levothyroxine Sodium (Synthroid) 25 mcg DAILY07 PO ; Start 12/21/17 at 07:00; Stop 12/21/17 at 07:00; Status DC Levothyroxine Sodium 12.5 mcg/ Sodium Chloride 5 ml @ 100 mls/hr DAILY IVP Last administered on 12/31/17at 08:43; Start 12/21/17 at 09:00 Sodium Chloride 90 meq/Potassium Chloride 50 meq/ Potassium Phosphate 13.6 mmol/ Magnesium Sulfate 5 meq/ Calcium Gluconate 5 meq/ Multivitamins 10 ml/Chromium/ Copper/Manganese/ Seleni/Zn 1 ml/ Total Parenteral Nutrition/Amino Acids/ Dextrose/ Fat Emulsion Intravenous 1,512 ml @ 63 mls/hr TPN CONT IV Last administered on 12/20/17at 20:58; Start 12/20/17 at 22:00; Stop 12/21/17 at 21:59 ; Status DC Albumin Human 1,200 ml @ 0 mls/hr 1X ONCE IV Last administered on 12/21/17at 10:40; Start 12/21/17 at 08:45; Stop 12/21/17 at 08:46; Status DC Heparin Sodium (Porcine) (Heparin Sodium) 10,000 unit STK-MED ONCE .ROUTE ; Start 12/21/17 at 08:50; Stop 12/21/17 at 08:51; Status DC Diphenhydramine HCl (Benadryl) 50 mg STK-MED ONCE .ROUTE ; Start 12/21/17 at 11: 46; Stop 12/21/17 at 11:47; Status DC Diphenhydramine HCl (Benadryl) 50 mg 1X ONCE IVP Last administered on at 11:59; Start 12/21/17 at 12:00; Stop 12/21/17 at 12:01; Status DC Sodium Chloride 90 meq/Potassium Chloride 50 meq/ Potassium Phosphate 13.6 mmol/ Magnesium Sulfate 5 meq/ Calcium Gluconate 5 meq/ Multivitamins 10 ml/Chromium/ Copper/Manganese/ Seleni/Zn 1 ml/ Total Parenteral Nutrition/Amino Acids/ Dextrose/ Fat Emulsion Intravenous 1,512 ml @ 63 mls/hr TPN CONT IV Last administered on 12/21/17at 22:00; Start 12/21/17 at 22:00; Stop 12/22/17 at 21:59 ; Status DC Sodium Chloride 90 meq/Potassium Chloride 50 meq/ Potassium Phosphate 13.6 mmol/ Magnesium Sulfate 5 meq/ Calcium Gluconate 5 meq/ Multivitamins 10 ml/Chromium/ Copper/Manganese/ Seleni/Zn 1 ml/ Total Parenteral Nutrition/Amino Acids/ Dextrose/ Fat Emulsion Intravenous 1,512 ml @ 63 mls/hr TPN CONT IV Last administered on 12/22/17at 21:26; Start 12/22/17 at 22:00; Stop 12/23/17 at 21:59 ; Status DC Famotidine (Pepcid Vial) 20 mg QHS IVP Last administered on 12/30/17at 21:36; Start 12/23/17 at 21:00 Sodium Chloride 90 meq/Potassium Chloride 50 meq/ Potassium Phosphate 13.6 mmol/ Magnesium Sulfate 5 meq/ Calcium Gluconate 5 meq/ Multivitamins 10 ml/Chromium/ Copper/Manganese/ Seleni/Zn 1 ml/ Total Parenteral Nutrition/Amino Acids/ Dextrose/ Fat Emulsion Intravenous 1,512 ml @ 63 mls/hr TPN CONT IV Last administered on 12/23/17at 21:10; Start 12/23/17 at 22:00; Stop 12/24/17 at 21:59 ; Status DC Diphenhydramine HCl (Benadryl) 50 mg 1X ONCE IVP Last administered on at 17:33; Start 12/23/17 at 12:00; Stop 12/23/17 at 12:23; Status DC Albumin Human 1,500 ml @ 125 mls/hr 1X ONCE IV Last administered on at 17:34; Start 12/23/17 at 12:30; Stop 12/24/17 at 00:29; Status DC Heparin Sodium (Porcine) (Heparin Sodium) 10,000 unit STK-MED ONCE .ROUTE ; Start 12/23/17 at 14:57; Stop 12/23/17 at 14:58; Status DC Oxycodone/ Acetaminophen (Percocet 5/325) 1 tab PRN Q6HRS PRN PO PAIN; Start 12/23/17 at 20:45; Status Cancel Sodium Chloride 90 meq/Potassium Chloride 50 meq/ Potassium Phosphate 13.6 mmol/ Magnesium Sulfate 5 meq/ Calcium Gluconate 5 meq/ Multivitamins 10 ml/Chromium/ Copper/Manganese/ Seleni/Zn 1 ml/ Total Parenteral Nutrition/Amino Acids/ Dextrose/ Fat Emulsion Intravenous 1,512 ml @ 63 mls/hr TPN CONT IV Last administered on 12/24/17at 21:11; Start 12/24/17 at 22:00; Stop 12/25/17 at 21:59 ; Status DC Calcium Gluconate 2000 mg/Dextrose 120 ml @ 220 mls/hr 1X ONCE IV Last administered on 12/25/17at 09:51; Start 12/25/17 at 10:00; Stop 12/25/17 at 10:32 ; Status DC Diphenhydramine HCl (Benadryl) 50 mg 1X ONCE IVP Last administered on at 14:16; Start 12/25/17 at 09:30; Stop 12/25/17 at 09:31; Status DC Heparin Sodium (Porcine) (Heparin Sodium) 3,000 unit 1X ONCE IV Last administered on 12/25/17at 09:15; Start 12/25/17 at 09:15; Stop 12/25/17 at 09:16 ; Status DC Albumin Human 1,500 ml @ 0 mls/hr 1X ONCE IV Last administered on 12/25/17at 14:19; Start 12/25/17 at 10:45; Stop 12/25/17 at 10:46; Status DC Albumin Human 200 ml @ 0 mls/hr 1X ONCE IV ; Start 12/25/17 at 10:45; Stop 12/25/17 at 10:46; Status DC Heparin Sodium (Porcine) (Heparin Sodium) 10,000 unit STK-MED ONCE .ROUTE ; Start 12/25/17 at 12:39; Stop 12/25/17 at 12:40; Status DC Insulin Human Lispro (HumaLOG) 0-5 UNITS TIDWMEALS SQ Last administered on 12/29at 10:30; Start 12/25/17 at 17:00; Stop 12/29/17 at 11:33; Status DC Dextrose (Dextrose 50%-Water Syringe) 12.5 gm PRN Q15MIN PRN IV SEE COMMENTS; Start 12/25/17 at 13:30 Sodium Chloride 90 meq/Potassium Chloride 50 meq/ Potassium Phosphate 13.6 mmol/ Magnesium Sulfate 5 meq/ Calcium Gluconate 5 meq/ Multivitamins 10 ml/Chromium/ Copper/Manganese/ Seleni/Zn 1 ml/ Total Parenteral Nutrition/Amino Acids/ Dextrose/ Fat Emulsion Intravenous 1,512 ml @ 63 mls/hr TPN CONT IV Last administered on 12/25/17at 21:42; Start 12/25/17 at 22:00; Stop 12/26/17 at 21:59 ; Status DC Barium Sulfate (Varibar Thin Liquid Apple) 148 gm 1X ONCE PO Last administered on 12/26/17at 13:57; Start 12/26/17 at 12:00; Stop 12/26/17 at 12:01 ; Status DC Sodium Chloride 90 meq/Potassium Chloride 50 meq/ Potassium Phosphate 13.6 mmol/ Magnesium Sulfate 5 meq/ Calcium Gluconate 5 meq/ Multivitamins 10 ml/Chromium/ Copper/Manganese/ Seleni/Zn 1 ml/ Total Parenteral Nutrition/Amino Acids/ Dextrose/ Fat Emulsion Intravenous 1,512 ml @ 63 mls/hr TPN CONT IV Last administered on 12/26/17at 21:37; Start 12/26/17 at 22:00; Stop 12/27/17 at 21:59 ; Status DC Vitamin A/Vitamin D (Vitamin A & D Ointment) 1 lila PRN Q1HR PRN TP SKIN PROTECTION Last administered on 12/26/17at 17:42; Start 12/26/17 at 14:15 Pyridostigmine [place] (Regonol) 2.5 mg Q8H IV Last administered on 12/30/17at 00:18; Start 12/26/17 at 17:00; Stop 12/30/17 at 08:53; Status DC Calcium Gluconate 2000 mg/Dextrose 120 ml @ 220 mls/hr 1X ONCE IV ; Start 12/27/17 at 12:30; Stop 12/27/17 at 13:02; Status DC Sodium Chloride 90 meq/Potassium Chloride 50 meq/ Potassium Phosphate 13.6 mmol/ Magnesium Sulfate 5 meq/ Calcium Gluconate 5 meq/ Multivitamins 10 ml/Chromium/ Copper/Manganese/ Seleni/Zn 1 ml/ Total Parenteral Nutrition/Amino Acids/ Dextrose/ Fat Emulsion Intravenous 1,512 ml @ 63 mls/hr TPN CONT IV Last administered on 12/27/17at 23:26; Start 12/27/17 at 22:00; Stop 12/28/17 at 21:59 ; Status DC Albumin Human 1,500 ml @ 0 mls/hr 1X ONCE IV ; Start 12/27/17 at 15:00; Stop 12/27/17 at 15:01; Status DC Sodium Chloride 1,000 ml @ 1,000 mls/hr Q1H ONCE IV ; Start 12/27/17 at 14:30; Stop 12/27/17 at 15:29; Status DC Diphenhydramine HCl (Benadryl) 50 mg 1X ONCE IVP Last administered on at 16:43; Start 12/27/17 at 14:30; Stop 12/27/17 at 14:34; Status DC Heparin Sodium (Porcine) (Heparin Sodium) 10,000 unit STK-MED ONCE .ROUTE ; Start 12/27/17 at 14:42; Stop 12/27/17 at 14:43; Status DC Sodium Chloride 90 meq/Potassium Chloride 50 meq/ Potassium Phosphate 13.6 mmol/ Magnesium Sulfate 5 meq/ Calcium Gluconate 5 meq/ Multivitamins 10 ml/Chromium/ Copper/Manganese/ Seleni/Zn 1 ml/ Total Parenteral Nutrition/Amino Acids/ Dextrose/ Fat Emulsion Intravenous 1,512 ml @ 63 mls/hr TPN CONT IV Last administered on 12/28/17at 22:03; Start 12/28/17 at 22:00; Stop 12/29/17 at 21:59 ; Status DC Mirtazapine (Remeron) 15 mg QHS PO ; Start 12/29/17 at 21:00 Albumin Human 1,000 ml @ 0 mls/hr 1X ONCE IV ; Start 12/29/17 at 11:15; Stop 12/29/17 at 11:16; Status DC Calcium Gluconate (Calcium Gluconate) 1,000 mg 1X ONCE IV ; Start 12/29/17 at 11:15; Stop 12/29/17 at 11:16; Status DC Diphenhydramine HCl (Benadryl) 25 mg 1X ONCE IV ; Start 12/29/17 at 11:15; Stop 12/29/17 at 11:16; Status DC Insulin Human Lispro (HumaLOG) 0-5 UNITS Q6HRS SQ Last administered on at 06:19; Start 12/29/17 at 18:00 Sodium Chloride 90 meq/Potassium Chloride 50 meq/ Potassium Phosphate 13.6 mmol/ Magnesium Sulfate 5 meq/ Calcium Gluconate 5 meq/ Multivitamins 10 ml/Chromium/ Copper/Manganese/ Seleni/Zn 1 ml/ Total Parenteral Nutrition/Amino Acids/ Dextrose/ Fat Emulsion Intravenous 1,512 ml @ 63 mls/hr TPN CONT IV Last administered on 12/29/17at 21:58; Start 12/29/17 at 22:00; Stop 12/30/17 at 21:59 ; Status DC Diphenhydramine HCl (Benadryl) 25 mg PRN Q6HRS PRN IVP ITCHING Last administered on 12/30/17at 16:34; Start 12/29/17 at 21:30 Pyridostigmine [place]horn (Regonol) 2.5 mg Q6H IV Last administered on 12/31/17at 06:40; Start 12/30/17 at 13:00 Sodium Chloride 90 meq/Potassium Chloride 50 meq/ Potassium Phosphate 13.6 mmol/ Magnesium Sulfate 5 meq/ Calcium Gluconate 5 meq/ Multivitamins 10 ml/Chromium/ Copper/Manganese/ Seleni/Zn 1 ml/ Total Parenteral Nutrition/Amino Acids/ Dextrose/ Fat Emulsion Intravenous 1,512 ml @ 63 mls/hr TPN CONT IV Last administered on 12/30/17at 21:37; Start 12/30/17 at 22:00; Stop 12/31/17 at 21:59 Diphenhydramine HCl (Benadryl) 50 mg 1X ONCE IVP ; Start 12/31/17 at 10:30; Stop 12/31/17 at 10:31; Status DC Calcium Gluconate (Calcium Gluconate) 2,000 mg 1X ONCE IVP ; Start 12/31/17 at 10:30; Stop 12/31/17 at 10:31; Status UNV Calcium Gluconate 2000 mg/Dextrose 120 ml @ 240 mls/hr 1X ONCE IV Last administered on 12/31/17at 11:18; Start 12/31/17 at 11:00; Stop 12/31/17 at 11:29 ; Status DC Active Scripts Active Reported Amoxicillin 875 Mg Tablet 1 Tab PO BID Levothyroxine Sodium 25 Mcg Tablet 1 Tab PO DAILY Proair Hfa Inhaler (Albuterol Sulfate) 8.5 Gm Hfa.aer.ad 1 Puff INH PRN Q6HRS PRN [kaitlib fe] Hydrocodone-Apap 7.5-325/15 Soln (Hydrocodone Bit/Acetaminophen) 15 Ml Solution 15 Ml PO PRN Q4HRS PRN Prednisone 50 Mg Tablet 1 Tab PO DAILY Fluticasone Propionate Nasal [place] (Fluticasone Propionate) 16 Gm [place].susp 1 [place] NS DAILY [zoloft] [ativan] Vitals/I & O Vital Sign - Last 24 Hours 12/30/17 12/30/17 12/30/17 12/30/17 13:14 13:39 14:41 16:51 Temp 97.8 97.8 Pulse 88 Resp 17 B/P (MAP) 131/84 (100) Pulse Ox 97 97 95 95 O2 Delivery Room Air Room Air Room Air Room Air 12/30/17 12/30/17 12/30/17 12/30/17 17:25 19:38 19:42 20:00 Temp 97.7 97.7 Pulse 82 Resp 18 B/P (MAP) 116/76 (89) Pulse Ox 95 O2 Delivery Room Air Room Air Room Air 12/30/17 12/30/17 12/31/17 12/31/17 21:53 23:24 02:00 02:30 Temp 97.6 97.6 Pulse 64 Resp 16 B/P (MAP) 127/68 (87) Pulse Ox 97 O2 Delivery Room Air Room Air Room Air Room Air 10/9/18 10/9/18 10/9/18 10/9/18 03:26 06:40 07:00 08:00 Temp 97.5 97.7 97.5 97.7 Pulse 78 58 Resp 20 18 B/P (MAP) 125/69 (87) 126/71 (89) Pulse Ox 96 96 O2 Delivery Room Air Room Air Room Air Room Air Intake and Output 12/30/17 12/30/17 12/31/17 15:00 23:00 07:00 Intake Total 0 ml Balance 0 ml Images Brain MRI: Comparison is made to patient's CT scan of the head dated 12/17/2017. The ventricles and sulci are within normal limits in size and configuration. No area of abnormal signal intensity is seen involving brain parenchyma. No extra-axial fluid collection is seen. There is no MRI evidence of acute ischemia/infarction. The paranasal sinuses are clear. Normal flow voids are seen within the major vascular structures surrounding the brain parenchyma. Impression: Negative study. GAURAV BARONE MD Dec 31, 2017 11:34
[2017-12-31 11:38] VITALS: BP 107/56
[2017-12-31] MEDS ORDERED: ALBUMIN HUMAN 5% 1,500 ML IV ONE (11:45)
[2017-12-31] MEDS ORDERED: ALBUMIN HUMAN 5% IV ONE (12:00)
--- NOTE | 2017-12-31 13:56 | PDOC ---
Renal-Progress Notes Subjective Notes Notes STILL FEELING WEAK History of Present Illness Hx of present illness OVERALL SLIGHTLY BETTER Vitals Vitals Vital Signs Date Time Temp Pulse Resp B/P (MAP) Pulse Ox O2 Delivery O2 Flow Rate FiO2 12/31/17 11:38 96.1 65 16 107/56 (73) Room Air 96.1 12/31/17 07:00 96 Weight Weight [ ] I.O. Intake and Output Intake and Output 12/31/17 07:00 Intake Total 0 ml Balance 0 ml Intake Oral 0 ml # Voids 6 Labs Labs Laboratory Tests Test 12/30/17 18:23 12/30/17 23:06 12/31/17 05:09 12/31/17 06:14 Glucose (Fingerstick) 185 mg/dL (70-99) 187 mg/dL (70-99) 178 mg/dL (70-99) White Blood Count 12.5 x10^3/uL (4.0-11.0) Red Blood Count 4.16 x10^6/uL (3.50-5.40) Hemoglobin 11.9 g/dL (12.0-15.5) Hematocrit 35.1 % (36.0-47.0) Mean Corpuscular Volume 84 fL (79-100) Mean Corpuscular Hemoglobin 29 pg (25-35) Mean Corpuscular Hemoglobin Concent 34 g/dL (31-37) Red Cell Distribution Width 12.3 % (11.5-14.5) Platelet Count 106 x10^3/uL (140-400) Fibrinogen 107 mg/dL (200-440) Sodium Level 135 mmol/L (136-145) Potassium Level 5.1 mmol/L (3.5-5.1) Chloride Level 102 mmol/L (98-107) Carbon Dioxide Level 31 mmol/L (21-32) Anion Gap 2 (6-14) Blood Urea Nitrogen 21 mg/dL (7-20) Creatinine 0.5 mg/dL (0.6-1.0) Estimated GFR (Cockcroft-Gault) 152.9 Glucose Level 336 mg/dL (70-99) Calcium Level 8.1 mg/dL (8.5-10.1) Magnesium Level 2.2 mg/dL (1.8-2.4) Test 12/31/17 11:26 Glucose (Fingerstick) 210 mg/dL (70-99) Review of Systems Constitutional: yes: weakness, alert, oriented Ears/Nose/Throat: Yes: no symptom reported Eyes: Yes: no symptom reported Pulmonary: Yes no symptom reported Cardiovascular: Yes no symptom reported Genitourinary: Yes: no symptom reported Musculoskeletal: Yes: no symptom reported, other (GENERALIZED WEAKNESS) Psychiatric/Neurological: Yes: tingling, weakness Endocrine: Yes: no symptom reported Hematologic/Lymphatic: Yes: no symptom reported Physical Exam General Appearance: no apparent distress Skin: warm Respiratory: bilateral CTA Heart: S1S2, RRR Abdomen: soft, bowel sounds present Genitourinary: bladder flat Extremities: pulses present, no edema, atrophy Neurology: alert, oriented, follow commands, Ext weakness Assessment Assessment IMP M GRAVIS-SYMPTOMS ARE SLIGHTLY BETTER PER PT DIPLOPIA-BETTER DYSPHAGIA PLAN TPE TODAY FFP TODAY WITH NS IV BENADRYL PROB PEG PENDING CONT TPN WILL FOLLOW RICHARDSON FORD MD Dec 31, 2017 13:56
[2017-12-31] MEDS: TPN PER PHARMACY MC PRN (18:11)
[2017-12-31 19:00] VITALS: BP 135/87
[2017-12-31] MEDS: FAMOTIDINE 20 MG/2 ML VIAL IVP SCH (19:55)
[2017-12-31] MEDS: MIRTAZAPINE 15 MG TABLET PO SCH (19:56)
[2017-12-31] MEDS ORDERED: [UNRECOGNIZED DRUG - OTHER] IV SCH ×10 (22:00)
[2017-12-31] MEDS ORDERED: DEXTROSE 70% IV SCH ×10 (22:00)
[2017-12-31] MEDS ORDERED: TOTAL PARENTERAL NUTRITION IV SCH ×10 (22:00)
[2017-12-31] MEDS ORDERED: AMINO ACIDS IV SCH ×10 (22:00)
[2017-12-31 23:00] VITALS: BP 123/72
[2018-01-01] MEDS: MORPHINE SULFATE 2 MG/ML VIAL. IV PRN ×9 (00:02→22:33)
[2018-01-01] MEDS: PYRIDOSTIGMINE BROMIDE 10 MG/2 ML AMPUL. IV SCH ×4 (00:04→19:56)
[2018-01-01] MEDS: INSULIN LISPRO 300 UNITS/3 ML INSULN.PEN. SQ SCH ×4 (00:13→16:54)
[2018-01-01 03:00] VITALS: BP 116/74
[2018-01-01 06:54] LABS: ALBUMIN 3.3 g/dL (3.4-5.0); ALBUMIN/GLOBULIN RATIO 1.9 (1.0-1.7); CALCIUM 8.2 mg/dL (8.5-10.1); CREATININE 0.5 mg/dL (0.6-1.0); GFR 152.9; POTASSIUM 4.2 mmol/L (3.5-5.1); TOTAL BILIRUBIN 0.5 mg/dL (0.2-1.0)
[2018-01-01 07:00] VITALS: BP 117/77
[2018-01-01] MEDS ORDERED: HYDROmorphone 2 MG/ML VIAL IV PRN (07:00)
[2018-01-01] MEDS ORDERED: MORPHINE SULFATE 2 MG/ML VIAL. IV PRN (07:00)
[2018-01-01] MEDS ORDERED: PROCHLORPERAZINE 10 MG/2 ML VIAL. IV PRN (07:00)
[2018-01-01] MEDS ORDERED: LIDOCAINE 1% PF 2 ML VIAL. ID PRN ×2 (07:00→08:15)
[2018-01-01] MEDS ORDERED: fentaNYL PF VIAL 100 MCG/2 ML VIAL IV PRN ×4 (07:00→08:15)
[2018-01-01] MEDS ORDERED: IV RINGERS,LACTATED 1000ML 1,000 ML IV SCH ×2 (07:00→08:02)
[2018-01-01] MEDS ORDERED: ONDANSETRON PF 4 MG/2 ML VIAL. IV PRN (07:00)
[2018-01-01] MEDS ORDERED: MIDAZOLAM HCL/PF 2 MG/2 ML VIAL. IV PRN (08:15)
--- NOTE | 2018-01-01 09:01 | PDOC4 ---
Operative Note Operative Note EGD with PEG Meds propofol per anesthesia Pre-op dx oropharyngeal dysphagia Post-op dx non-erosive gastritis S/p 20 FR Bard PEG placement Plan resume meds via g tube now start tube feedings in 6 hours PAWAN MENSAH MD Jan 01, 2018 09:01
[2018-01-01] MEDS: methylPREDNISolone SOD SUCC PF 40 MG/ML VIAL. IV SCH ×2 (09:50→20:45)
[2018-01-01] MEDS: NORMAL SALINE IVP SCH (10:02)
[2018-01-01] MEDS: LEVOTHYROXINE SODIUM IVP SCH (10:02)
[2018-01-01 11:00] VITALS: BP 124/76
[2018-01-01] MEDS: TPN PER PHARMACY MC PRN (11:31)
--- NOTE | 2018-01-01 11:38 | PDOC ---
Renal-Progress Notes Subjective Notes Notes STILL WEAK History of Present Illness Hx of present illness STABLE Vitals Vitals Vital Signs Date Time Temp Pulse Resp B/P (MAP) Pulse Ox O2 Delivery O2 Flow Rate FiO2 01/01/18 09:51 18 Room Air 01/01/18 09:21 96 122/80 100 01/01/18 09:13 2 01/01/18 08:58 98.0 98.0 Weight Weight [ ] I.O. Intake and Output Intake and Output 01/01/18 07:00 Intake Total 0 ml Balance 0 ml Intake Oral 0 ml # Voids 4 Labs Labs Laboratory Tests Test 12/31/17 17:41 01/01/18 00:08 01/01/18 06:02 01/01/18 06:15 Glucose (Fingerstick) 173 mg/dL (70-99) 169 mg/dL (70-99) 195 mg/dL (70-99) Sodium Level 140 mmol/L (136-145) Potassium Level 4.2 mmol/L (3.5-5.1) Chloride Level 104 mmol/L (98-107) Carbon Dioxide Level 32 mmol/L (21-32) Anion Gap 4 (6-14) Blood Urea Nitrogen 17 mg/dL (7-20) Creatinine 0.5 mg/dL (0.6-1.0) Estimated GFR (Cockcroft-Gault) 152.9 BUN/Creatinine Ratio 34 (6-20) Glucose Level 189 mg/dL (70-99) Calcium Level 8.2 mg/dL (8.5-10.1) Total Bilirubin 0.5 mg/dL (0.2-1.0) Aspartate Amino Transf (AST/SGOT) 43 U/L (15-37) Alanine Aminotransferase (ALT/SGPT) 161 U/L (14-59) Alkaline Phosphatase 31 U/L (46-116) Total Protein 5.0 g/dL (6.4-8.2) Albumin 3.3 g/dL (3.4-5.0) Albumin/Globulin Ratio 1.9 (1.0-1.7) Review of Systems Constitutional: yes: weakness, alert, oriented Ears/Nose/Throat: Yes: no symptom reported Eyes: Yes: no symptom reported Pulmonary: Yes no symptom reported Cardiovascular: Yes no symptom reported Genitourinary: Yes: no symptom reported Musculoskeletal: Yes: no symptom reported, other (GENERALIZED WEAKNESS) Psychiatric/Neurological: Yes: tingling, weakness Endocrine: Yes: no symptom reported Hematologic/Lymphatic: Yes: no symptom reported Physical Exam General Appearance: no apparent distress Skin: warm Respiratory: bilateral CTA Heart: S1S2, RRR Abdomen: soft, bowel sounds present Genitourinary: bladder flat Extremities: pulses present, no edema, atrophy Neurology: alert, oriented, follow commands, Ext weakness Assessment Assessment IMP M GRAVIS-SYMPTOMS ARE SLIGHTLY BETTER PER PT DIPLOPIA-BETTER DYSPHAGIA PLAN PEG TODAY CONT TPN TPE TOMORROW RICHARDSON FORD MD Jan 01, 2018 11:38
[2018-01-01] MEDS: FLUTICASONE 50MCG/NASAL SPRAY 16GM BOTTLE. NS SCH (12:17)
--- NOTE | 2018-01-01 13:19 | PDOC ---
PROGRESS NOTES Chief Complaint Chief Complaint Myasthenia gravis - new diagnosis Diplopia Dysphagia Eze's thyroiditis Easy bruising History of Present Illness History of Present Illness Pt seen and examined Dw RN Rest with NAD Vitals Vitals Vital Signs Date Time Temp Pulse Resp B/P (MAP) Pulse Ox O2 Delivery O2 Flow Rate FiO2 01/01/18 12:19 18 Room Air 01/01/18 11:00 97.5 78 124/76 (92) 98 97.5 01/01/18 09:13 2 Physical Exam General: No acute distress Heart: Regular rate, Normal S1, Normal S2 Lungs: Clear Abdomen: Normal bowel sounds, Soft, No tenderness, No hepatosplenomegaly, No masses Extremities: No clubbing, No cyanosis Skin: No breakdown, No significant lesion, Other (lipoma at the nape) Labs LABS Laboratory Tests Test 12/31/17 17:41 01/01/18 00:08 01/01/18 06:02 01/01/18 06:15 Glucose (Fingerstick) 173 mg/dL (70-99) 169 mg/dL (70-99) 195 mg/dL (70-99) Sodium Level 140 mmol/L (136-145) Potassium Level 4.2 mmol/L (3.5-5.1) Chloride Level 104 mmol/L (98-107) Carbon Dioxide Level 32 mmol/L (21-32) Anion Gap 4 (6-14) Blood Urea Nitrogen 17 mg/dL (7-20) Creatinine 0.5 mg/dL (0.6-1.0) Estimated GFR (Cockcroft-Gault) 152.9 BUN/Creatinine Ratio 34 (6-20) Glucose Level 189 mg/dL (70-99) Calcium Level 8.2 mg/dL (8.5-10.1) Total Bilirubin 0.5 mg/dL (0.2-1.0) Aspartate Amino Transf (AST/SGOT) 43 U/L (15-37) Alanine Aminotransferase (ALT/SGPT) 161 U/L (14-59) Alkaline Phosphatase 31 U/L (46-116) Total Protein 5.0 g/dL (6.4-8.2) Albumin 3.3 g/dL (3.4-5.0) Albumin/Globulin Ratio 1.9 (1.0-1.7) Review of Systems Review of Systems Resting NAD Assessment and Plan Assessmemt and Plan Assessment: Myasthenia gravis - new diagnosis Diplopia Dysphagia Eze's thyroiditis Easy bruising Sinusitis Plan: Stop TPN Start PEG feed 20/hr Benadryl FFP TPE Labs Home meds Appreciate subspecialty input Comment Review of Relevant I have reviewed the following items maliha (where applicable) has been applied. Labs Laboratory Tests Test 12/30/17 18:23 12/30/17 23:06 12/31/17 05:09 12/31/17 06:14 Glucose (Fingerstick) 185 mg/dL (70-99) 187 mg/dL (70-99) 178 mg/dL (70-99) White Blood Count 12.5 x10^3/uL (4.0-11.0) Red Blood Count 4.16 x10^6/uL (3.50-5.40) Hemoglobin 11.9 g/dL (12.0-15.5) Hematocrit 35.1 % (36.0-47.0) Mean Corpuscular Volume 84 fL (79-100) Mean Corpuscular Hemoglobin 29 pg (25-35) Mean Corpuscular Hemoglobin Concent 34 g/dL (31-37) Red Cell Distribution Width 12.3 % (11.5-14.5) Platelet Count 106 x10^3/uL (140-400) Fibrinogen 107 mg/dL (200-440) Sodium Level 135 mmol/L (136-145) Potassium Level 5.1 mmol/L (3.5-5.1) Chloride Level 102 mmol/L (98-107) Carbon Dioxide Level 31 mmol/L (21-32) Anion Gap 2 (6-14) Blood Urea Nitrogen 21 mg/dL (7-20) Creatinine 0.5 mg/dL (0.6-1.0) Estimated GFR (Cockcroft-Gault) 152.9 Glucose Level 336 mg/dL (70-99) Calcium Level 8.1 mg/dL (8.5-10.1) Magnesium Level 2.2 mg/dL (1.8-2.4) Test 12/31/17 11:26 12/31/17 17:41 01/01/18 00:08 01/01/18 06:02 Glucose (Fingerstick) 210 mg/dL (70-99) 173 mg/dL (70-99) 169 mg/dL (70-99) 195 mg/dL (70-99) Test 01/01/18 06:15 Sodium Level 140 mmol/L (136-145) Potassium Level 4.2 mmol/L (3.5-5.1) Chloride Level 104 mmol/L (98-107) Carbon Dioxide Level 32 mmol/L (21-32) Anion Gap 4 (6-14) Blood Urea Nitrogen 17 mg/dL (7-20) Creatinine 0.5 mg/dL (0.6-1.0) Estimated GFR (Cockcroft-Gault) 152.9 BUN/Creatinine Ratio 34 (6-20) Glucose Level 189 mg/dL (70-99) Calcium Level 8.2 mg/dL (8.5-10.1) Total Bilirubin 0.5 mg/dL (0.2-1.0) Aspartate Amino Transf (AST/SGOT) 43 U/L (15-37) Alanine Aminotransferase (ALT/SGPT) 161 U/L (14-59) Alkaline Phosphatase 31 U/L (46-116) Total Protein 5.0 g/dL (6.4-8.2) Albumin 3.3 g/dL (3.4-5.0) Albumin/Globulin Ratio 1.9 (1.0-1.7) Laboratory Tests Test 12/31/17 17:41 01/01/18 00:08 01/01/18 06:02 01/01/18 06:15 Glucose (Fingerstick) 173 mg/dL (70-99) 169 mg/dL (70-99) 195 mg/dL (70-99) Sodium Level 140 mmol/L (136-145) Potassium Level 4.2 mmol/L (3.5-5.1) Chloride Level 104 mmol/L (98-107) Carbon Dioxide Level 32 mmol/L (21-32) Anion Gap 4 (6-14) Blood Urea Nitrogen 17 mg/dL (7-20) Creatinine 0.5 mg/dL (0.6-1.0) Estimated GFR (Cockcroft-Gault) 152.9 BUN/Creatinine Ratio 34 (6-20) Glucose Level 189 mg/dL (70-99) Calcium Level 8.2 mg/dL (8.5-10.1) Total Bilirubin 0.5 mg/dL (0.2-1.0) Aspartate Amino Transf (AST/SGOT) 43 U/L (15-37) Alanine Aminotransferase (ALT/SGPT) 161 U/L (14-59) Alkaline Phosphatase 31 U/L (46-116) Total Protein 5.0 g/dL (6.4-8.2) Albumin 3.3 g/dL (3.4-5.0) Albumin/Globulin Ratio 1.9 (1.0-1.7) Medications Current Medications Meclizine HCl (Antivert) 25 mg 1X ONCE PO Last administered on 12/17/17at 20:00 ; Start 12/17/17 at 20:00; Stop 12/17/17 at 20:01; Status DC Sodium Chloride 1,000 ml @ 1,000 mls/hr 1X ONCE IV Last administered on at 20:35; Start 12/17/17 at 20:15; Stop 12/17/17 at 21:14; Status DC Ketorolac Tromethamine (Toradol 15mg Vial) 15 mg 1X ONCE IV Last administered on 12/17/17at 20:36; Start 12/17/17 at 20:15; Stop 12/17/17 at 20:16; Status DC Diphenhydramine HCl (Benadryl) 25 mg 1X ONCE PO Last administered on at 02:16; Start 12/18/17 at 02:15; Stop 12/18/17 at 02:18; Status DC Acetaminophen (Tylenol) 500 mg PRN Q6HRS PRN PO MILD PAIN / TEMP; Start at 09:00 Acetaminophen/ Codeine Phosphate (Tylenol #3) 1 tab PRN Q6HRS PRN PO PAIN; Start 12/18/17 at 09:00; Stop 12/18/17 at 12:08; Status DC Ibuprofen (Motrin) 600 mg PRN Q6HRS PRN PO INFLAMMATION; Start 12/18/17 at 09: 00; Stop 12/19/17 at 16:23; Status DC Ondansetron HCl (Zofran) 4 mg PRN Q6HRS PRN IV NAUSEA/VOMITING Last administered on 12/29/17at 18:46; Start 12/18/17 at 09:00 Ondansetron HCl (Zofran Odt) 4 mg PRN Q6HRS PRN PO NAUSEA/VOMITING; Start 12/18 at 09:00; Stop 12/18/17 at 12:08; Status DC Fluticasone Propionate (Flonase) 1 spray DAILY NS Last administered on at 12:17; Start 12/18/17 at 09:00 Acetaminophen/ Hydrocodone Bitart (Lortab 7.5-325/ 15ml Oral Solution) 15 ml PRN Q4HRS PRN PO MODERATE PAIN; Start 12/18/17 at 09:00; Stop 12/19/17 at 16:23 ; Status DC Non-Formulary Medication (Albuterol Sulfate (Proair Hfa Inhaler)) 1 puff PRN Q6HRS PRN INH SHORTNESS OF BREATH; Start 12/18/17 at 09:00; Status UNV Amoxicillin (Amoxil) 750 mg BID PO Last administered on 12/18/17at 21:02; Start 12/18/17 at 10:00; Stop 12/19/17 at 16:23; Status DC Levothyroxine Sodium (Synthroid) 25 mcg DAILY07 PO ; Start 12/18/17 at 10:30; Stop 12/18/17 at 12:08; Status DC Prednisone (Prednisone) 50 mg DAILY PO ; Start 12/18/17 at 10:00; Stop 12/18/17 at 12:08; Status DC Alprazolam (Xanax) 0.25 mg PRN Q8HRS PRN PO ANXIETY / AGITATION; Start at 09:00; Stop 12/19/17 at 08:14; Status DC Zolpidem Tartrate (Ambien) 5 mg PRN QHS PRN PO INSOMNIA; Start 12/18/17 at 09: 00; Stop 12/18/17 at 12:08; Status DC Cetirizine HCl (ZyrTEC) 10 mg DAILY PO ; Start 12/18/17 at 10:00; Stop 12/18/17 at 12:08; Status DC Non-Formulary Medication 1 ea 1X ONCE IV ; Start 12/18/17 at 09:00; Stop at 09:01; Status UNV Potassium Chloride/Dextrose/ Sod Cl 1,000 ml @ 80 mls/hr [id number] IV Last administered on 12/19/17at 10:00; Start 12/18/17 at 09:00; Stop 12/20/17 at 09:07 ; Status DC Albuterol Sulfate (Ventolin Neb Soln) 2.5 mg PRN Q6HRS PRN NEB SHORTNESS OF BREATH Last administered on 12/27/17at 19:26; Start 12/18/17 at 09:30 Iohexol (Omnipaque 300 Mg/ml) 75 ml 1X ONCE IV Last administered on 12/18/17at 10:31; Start 12/18/17 at 10:15; Stop 12/18/17 at 10:16; Status DC Info (CONTRAST GIVEN -- Rx MONITORING) 1 each PRN DAILY PRN MC SEE COMMENTS; Start 12/18/17 at 10:15; Stop 12/20/17 at 10:14; Status DC Levothyroxine Sodium 15 mcg/ Sodium Chloride 5 ml @ 100 mls/hr DAILY IVP Last administered on 12/20/17at 09:41; Start 12/18/17 at 12:30; Stop 12/20/17 at 11:44 ; Status DC Lorazepam (Ativan) 1 mg PRN Q4HRS PRN IV ANXIETY / AGITATION Last administered on 01/01/18at 09:52; Start 12/18/17 at 13:15 Alprazolam (Xanax) 0.25 mg PRN Q8HRS PRN NG ANXIETY / AGITATION Last administered on 12/19/17at 01:13; Start 12/18/17 at 13:15; Stop 12/19/17 at 16:23 ; Status DC Pyridostigmine [place] (Mestinon) 60 mg BID NG Last administered on 12/18/17at 21:01; Start 12/18/17 at 13:00; Stop 12/19/17 at 16:23; Status DC Prednisone (Prednisone) 50 mg DAILY PO Last administered on 12/18/17at 16:03; Start 12/18/17 at 13:00; Stop 12/19/17 at 16:23; Status DC Famotidine (Pepcid) 20 mg QHS PO Last administered on 12/18/17at 21:01; Start at 21:00; Stop 12/19/17 at 16:23; Status DC Calcium Carbonate/ Glycine (Oscal) 500 mg TIDAFTMEAL PO ; Start 12/18/17 at 18: 00; Stop 12/19/17 at 16:23; Status DC Ergocalciferol (Vitamin D2) 50,000 unit MoTh PO ; Start 12/19/17 at 09:00; Stop 12/19/17 at 16:23; Status DC Lidocaine/Sodium Bicarbonate (Buffered Lidocaine 1%) 3 ml STK-MED ONCE .ROUTE ; Start 12/18/17 at 14:32; Stop 12/18/17 at 14:33; Status DC Heparin Sodium (Porcine) (Heparin Sodium) 10,000 unit STK-MED ONCE .ROUTE ; Start 12/18/17 at 14:32; Stop 12/18/17 at 14:33; Status DC Lidocaine/Sodium Bicarbonate (Buffered Lidocaine 1%) 3 ml 1X ONCE INJ Last administered on 12/18/17at 15:15; Start 12/18/17 at 15:15; Stop 12/18/17 at 15:16 ; Status DC Heparin Sodium (Porcine) (Heparin Sodium) 2,200 unit 1X ONCE INT CAT Last administered on 12/18/17at 15:15; Start 12/18/17 at 15:15; Stop 12/18/17 at 15:16 ; Status DC Scopolamine (Transderm-Scop) 1 patch 1X ONCE TD Last administered on at 21:41; Start 12/18/17 at 21:30; Stop 12/19/17 at 16:23; Status DC Albumin Human 1,500 ml @ 0 mls/hr 1X ONCE IV Last administered on 12/19/17at 11:38; Start 12/19/17 at 08:15; Stop 12/19/17 at 08:16; Status DC Heparin Sodium (Porcine) (Heparin Sodium) 10,000 unit STK-MED ONCE .ROUTE ; Start 12/19/17 at 08:40; Stop 12/19/17 at 08:41; Status DC Info (Tpn Per Pharmacy) 1 each PRN DAILY PRN MC SEE COMMENTS Last administered on 01/01/18at 11:31; Start 12/20/17 at 16:30 Pyridostigmine [place] (Regonol) 2.5 mg Q12HR IV Last administered on at 09:56; Start 12/19/17 at 21:00; Stop 12/26/17 at 15:52; Status DC Methylprednisolone Sodium Succinate (SOLU-Medrol 40MG VIAL) 40 mg Q12HR IV Last administered on 01/01/18at 09:50; Start 12/19/17 at 21:00 Famotidine (Pepcid Vial) 20 mg QHS IVP Last administered on 12/19/17at 21:33; Start 12/19/17 at 21:00; Stop 12/20/17 at 11:44; Status DC Morphine Sulfate (Morphine Sulfate) 2 mg PRN Q2HR PRN IV MODERATE TO SEVERE PAIN Last administered on 01/01/18at 12:19; Start 12/19/17 at 23:15 Amino Acids/ Glycerin/ Electrolytes 1,000 ml @ 80 mls/hr [id number] IV Last administered on 12/20/17at 09:57; Start 12/20/17 at 09:30; Stop 12/20/17 at 11:44 ; Status DC Alteplase, Recombinant (Cathflo) 2 mg 1X ONCE IV Last administered on at 12:37; Start 12/20/17 at 11:45; Stop 12/20/17 at 11:46; Status DC Cyclobenzaprine HCl (Flexeril) 5 mg QID PO Last administered on 12/21/17at 09:10 ; Start 12/20/17 at 17:00; Stop 12/29/17 at 11:33; Status DC Cyclobenzaprine HCl (Flexeril) 10 mg 1X ONCE PO ; Start 12/20/17 at 11:45; Stop 12/20/17 at 11:53; Status DC Levothyroxine Sodium (Synthroid) 25 mcg DAILY07 PO ; Start 12/21/17 at 07:00; Stop 12/21/17 at 07:00; Status DC Levothyroxine Sodium 12.5 mcg/ Sodium Chloride 5 ml @ 100 mls/hr DAILY IVP Last administered on 01/01/18at 10:02; Start 12/21/17 at 09:00 Sodium Chloride 90 meq/Potassium Chloride 50 meq/ Potassium Phosphate 13.6 mmol/ Magnesium Sulfate 5 meq/ Calcium Gluconate 5 meq/ Multivitamins 10 ml/Chromium/ Copper/Manganese/ Seleni/Zn 1 ml/ Total Parenteral Nutrition/Amino Acids/ Dextrose/ Fat Emulsion Intravenous 1,512 ml @ 63 mls/hr TPN CONT IV Last administered on 12/20/17at 20:58; Start 12/20/17 at 22:00; Stop 12/21/17 at 21:59 ; Status DC Albumin Human 1,200 ml @ 0 mls/hr 1X ONCE IV Last administered on 12/21/17at 10:40; Start 12/21/17 at 08:45; Stop 12/21/17 at 08:46; Status DC Heparin Sodium (Porcine) (Heparin Sodium) 10,000 unit STK-MED ONCE .ROUTE ; Start 12/21/17 at 08:50; Stop 12/21/17 at 08:51; Status DC Diphenhydramine HCl (Benadryl) 50 mg STK-MED ONCE .ROUTE ; Start 12/21/17 at 11: 46; Stop 12/21/17 at 11:47; Status DC Diphenhydramine HCl (Benadryl) 50 mg 1X ONCE IVP Last administered on at 11:59; Start 12/21/17 at 12:00; Stop 12/21/17 at 12:01; Status DC Sodium Chloride 90 meq/Potassium Chloride 50 meq/ Potassium Phosphate 13.6 mmol/ Magnesium Sulfate 5 meq/ Calcium Gluconate 5 meq/ Multivitamins 10 ml/Chromium/ Copper/Manganese/ Seleni/Zn 1 ml/ Total Parenteral Nutrition/Amino Acids/ Dextrose/ Fat Emulsion Intravenous 1,512 ml @ 63 mls/hr TPN CONT IV Last administered on 12/21/17at 22:00; Start 12/21/17 at 22:00; Stop 12/22/17 at 21:59 ; Status DC Sodium Chloride 90 meq/Potassium Chloride 50 meq/ Potassium Phosphate 13.6 mmol/ Magnesium Sulfate 5 meq/ Calcium Gluconate 5 meq/ Multivitamins 10 ml/Chromium/ Copper/Manganese/ Seleni/Zn 1 ml/ Total Parenteral Nutrition/Amino Acids/ Dextrose/ Fat Emulsion Intravenous 1,512 ml @ 63 mls/hr TPN CONT IV Last administered on 12/22/17at 21:26; Start 12/22/17 at 22:00; Stop 12/23/17 at 21:59 ; Status DC Famotidine (Pepcid Vial) 20 mg QHS IVP Last administered on 12/31/17at 19:55; Start 12/23/17 at 21:00 Sodium Chloride 90 meq/Potassium Chloride 50 meq/ Potassium Phosphate 13.6 mmol/ Magnesium Sulfate 5 meq/ Calcium Gluconate 5 meq/ Multivitamins 10 ml/Chromium/ Copper/Manganese/ Seleni/Zn 1 ml/ Total Parenteral Nutrition/Amino Acids/ Dextrose/ Fat Emulsion Intravenous 1,512 ml @ 63 mls/hr TPN CONT IV Last administered on 12/23/17at 21:10; Start 12/23/17 at 22:00; Stop 12/24/17 at 21:59 ; Status DC Diphenhydramine HCl (Benadryl) 50 mg 1X ONCE IVP Last administered on at 17:33; Start 12/23/17 at 12:00; Stop 12/23/17 at 12:23; Status DC Albumin Human 1,500 ml @ 125 mls/hr 1X ONCE IV Last administered on at 17:34; Start 12/23/17 at 12:30; Stop 12/24/17 at 00:29; Status DC Heparin Sodium (Porcine) (Heparin Sodium) 10,000 unit [facility]-MED ONCE .ROUTE ; Start 12/23/17 at 14:57; Stop 12/23/17 at 14:58; Status DC Oxycodone/ Acetaminophen (Percocet 5/325) 1 tab PRN Q6HRS PRN PO PAIN; Start 12/23/17 at 20:45; Status Cancel Sodium Chloride 90 meq/Potassium Chloride 50 meq/ Potassium Phosphate 13.6 mmol/ Magnesium Sulfate 5 meq/ Calcium Gluconate 5 meq/ Multivitamins 10 ml/Chromium/ Copper/Manganese/ Seleni/Zn 1 ml/ Total Parenteral Nutrition/Amino Acids/ Dextrose/ Fat Emulsion Intravenous 1,512 ml @ 63 mls/hr TPN CONT IV Last administered on 12/24/17at 21:11; Start 12/24/17 at 22:00; Stop 12/25/17 at 21:59 ; Status DC Calcium Gluconate 2000 mg/Dextrose 120 ml @ 220 mls/hr 1X ONCE IV Last administered on 12/25/17at 09:51; Start 12/25/17 at 10:00; Stop 12/25/17 at 10:32 ; Status DC Diphenhydramine HCl (Benadryl) 50 mg 1X ONCE IVP Last administered on at 14:16; Start 12/25/17 at 09:30; Stop 12/25/17 at 09:31; Status DC Heparin Sodium (Porcine) (Heparin Sodium) 3,000 unit 1X ONCE IV Last administered on 12/25/17at 09:15; Start 12/25/17 at 09:15; Stop 12/25/17 at 09:16 ; Status DC Albumin Human 1,500 ml @ 0 mls/hr 1X ONCE IV Last administered on 12/25/17at 14:19; Start 12/25/17 at 10:45; Stop 12/25/17 at 10:46; Status DC Albumin Human 200 ml @ 0 mls/hr 1X ONCE IV ; Start 12/25/17 at 10:45; Stop 12/25/17 at 10:46; Status DC Heparin Sodium (Porcine) (Heparin Sodium) 10,000 unit STK-MED ONCE .ROUTE ; Start 12/25/17 at 12:39; Stop 12/25/17 at 12:40; Status DC Insulin Human Lispro (HumaLOG) 0-5 UNITS TIDWMEALS SQ Last administered on 12/29at 10:30; Start 12/25/17 at 17:00; Stop 12/29/17 at 11:33; Status DC Dextrose (Dextrose 50%-Water Syringe) 12.5 gm PRN Q15MIN PRN IV SEE COMMENTS; Start 12/25/17 at 13:30 Sodium Chloride 90 meq/Potassium Chloride 50 meq/ Potassium Phosphate 13.6 mmol/ Magnesium Sulfate 5 meq/ Calcium Gluconate 5 meq/ Multivitamins 10 ml/Chromium/ Copper/Manganese/ Seleni/Zn 1 ml/ Total Parenteral Nutrition/Amino Acids/ Dextrose/ Fat Emulsion Intravenous 1,512 ml @ 63 mls/hr TPN CONT IV Last administered on 12/25/17at 21:42; Start 12/25/17 at 22:00; Stop 12/26/17 at 21:59 ; Status DC Barium Sulfate (Varibar Thin Liquid Apple) 148 gm 1X ONCE PO Last administered on 12/26/17at 13:57; Start 12/26/17 at 12:00; Stop 12/26/17 at 12:01 ; Status DC Sodium Chloride 90 meq/Potassium Chloride 50 meq/ Potassium Phosphate 13.6 mmol/ Magnesium Sulfate 5 meq/ Calcium Gluconate 5 meq/ Multivitamins 10 ml/Chromium/ Copper/Manganese/ Seleni/Zn 1 ml/ Total Parenteral Nutrition/Amino Acids/ Dextrose/ Fat Emulsion Intravenous 1,512 ml @ 63 mls/hr TPN CONT IV Last administered on 12/26/17at 21:37; Start 12/26/17 at 22:00; Stop 12/27/17 at 21:59 ; Status DC Vitamin A/Vitamin D (Vitamin A & D Ointment) 1 lila PRN Q1HR PRN TP SKIN PROTECTION Last administered on 12/26/17at 17:42; Start 12/26/17 at 14:15 Pyridostigmine [place] (Regonol) 2.5 mg Q8H IV Last administered on 12/30/17at 00:18; Start 12/26/17 at 17:00; Stop 12/30/17 at 08:53; Status DC Calcium Gluconate 2000 mg/Dextrose 120 ml @ 220 mls/hr 1X ONCE IV ; Start 12/27/17 at 12:30; Stop 12/27/17 at 13:02; Status DC Sodium Chloride 90 meq/Potassium Chloride 50 meq/ Potassium Phosphate 13.6 mmol/ Magnesium Sulfate 5 meq/ Calcium Gluconate 5 meq/ Multivitamins 10 ml/Chromium/ Copper/Manganese/ Seleni/Zn 1 ml/ Total Parenteral Nutrition/Amino Acids/ Dextrose/ Fat Emulsion Intravenous 1,512 ml @ 63 mls/hr TPN CONT IV Last administered on 12/27/17at 23:26; Start 12/27/17 at 22:00; Stop 12/28/17 at 21:59 ; Status DC Albumin Human 1,500 ml @ 0 mls/hr 1X ONCE IV ; Start 12/27/17 at 15:00; Stop 12/27/17 at 15:01; Status DC Sodium Chloride 1,000 ml @ 1,000 mls/hr Q1H ONCE IV ; Start 12/27/17 at 14:30; Stop 12/27/17 at 15:29; Status DC Diphenhydramine HCl (Benadryl) 50 mg 1X ONCE IVP Last administered on at 16:43; Start 12/27/17 at 14:30; Stop 12/27/17 at 14:34; Status DC Heparin Sodium (Porcine) (Heparin Sodium) 10,000 unit STK-MED ONCE .ROUTE ; Start 12/27/17 at 14:42; Stop 12/27/17 at 14:43; Status DC Sodium Chloride 90 meq/Potassium Chloride 50 meq/ Potassium Phosphate 13.6 mmol/ Magnesium Sulfate 5 meq/ Calcium Gluconate 5 meq/ Multivitamins 10 ml/Chromium/ Copper/Manganese/ Seleni/Zn 1 ml/ Total Parenteral Nutrition/Amino Acids/ Dextrose/ Fat Emulsion Intravenous 1,512 ml @ 63 mls/hr TPN CONT IV Last administered on 12/28/17at 22:03; Start 12/28/17 at 22:00; Stop 12/29/17 at 21:59 ; Status DC Mirtazapine (Remeron) 15 mg QHS PO ; Start 12/29/17 at 21:00 Albumin Human 1,000 ml @ 0 mls/hr 1X ONCE IV ; Start 12/29/17 at 11:15; Stop 12/29/17 at 11:16; Status DC Calcium Gluconate (Calcium Gluconate) 1,000 mg 1X ONCE IV ; Start 12/29/17 at 11:15; Stop 12/29/17 at 11:16; Status DC Diphenhydramine HCl (Benadryl) 25 mg 1X ONCE IV ; Start 12/29/17 at 11:15; Stop 12/29/17 at 11:16; Status DC Insulin Human Lispro (HumaLOG) 0-5 UNITS Q6HRS SQ Last administered on at 06:17; Start 12/29/17 at 18:00 Sodium Chloride 90 meq/Potassium Chloride 50 meq/ Potassium Phosphate 13.6 mmol/ Magnesium Sulfate 5 meq/ Calcium Gluconate 5 meq/ Multivitamins 10 ml/Chromium/ Copper/Manganese/ Seleni/Zn 1 ml/ Total Parenteral Nutrition/Amino Acids/ Dextrose/ Fat Emulsion Intravenous 1,512 ml @ 63 mls/hr TPN CONT IV Last administered on 12/29/17at 21:58; Start 12/29/17 at 22:00; Stop 12/30/17 at 21:59 ; Status DC Diphenhydramine HCl (Benadryl) 25 mg PRN Q6HRS PRN IVP ITCHING Last administered on 12/30/17at 16:34; Start 12/29/17 at 21:30 Pyridostigmine [place] (Regonol) 2.5 mg Q6H IV Last administered on 01/01/18at 06:04; Start 12/30/17 at 13:00 Sodium Chloride 90 meq/Potassium Chloride 50 meq/ Potassium Phosphate 13.6 mmol/ Magnesium Sulfate 5 meq/ Calcium Gluconate 5 meq/ Multivitamins 10 ml/Chromium/ Copper/Manganese/ Seleni/Zn 1 ml/ Total Parenteral Nutrition/Amino Acids/ Dextrose/ Fat Emulsion Intravenous 1,512 ml @ 63 mls/hr TPN CONT IV Last administered on 12/30/17at 21:37; Start 12/30/17 at 22:00; Stop 12/31/17 at 21:59 ; Status DC Diphenhydramine HCl (Benadryl) 50 mg 1X ONCE IVP Last administered on at 15:03; Start 12/31/17 at 10:30; Stop 12/31/17 at 10:31; Status DC Calcium Gluconate (Calcium Gluconate) 2,000 mg 1X ONCE IVP ; Start 12/31/17 at 10:30; Stop 12/31/17 at 10:31; Status UNV Calcium Gluconate 2000 mg/Dextrose 120 ml @ 240 mls/hr 1X ONCE IV Last administered on 12/31/17at 11:18; Start 12/31/17 at 11:00; Stop 12/31/17 at 11:29 ; Status DC Albumin Human 1,500 ml @ 375 mls/hr 1X ONCE IV Last administered on at 15:03; Start 12/31/17 at 11:45; Stop 12/31/17 at 15:44; Status DC Albumin Human 100 ml @ 25 mls/hr 1X ONCE IV Last administered on 12/31/17at 15 :02; Start 12/31/17 at 12:00; Stop 12/31/17 at 15:59; Status DC Ondansetron HCl (Zofran) 4 mg PRN Q6HRS PRN IV NAUSEA/VOMITING; Start at 07:00; Stop 01/01/18 at 12:00; Status DC Fentanyl Citrate (Fentanyl 2ml Vial) 25 mcg PRN Q5MIN PRN IV MILD PAIN; Start 01/01/18 at 07:00; Stop 01/01/18 at 12:00; Status DC Fentanyl Citrate (Fentanyl 2ml Vial) 50 mcg PRN Q5MIN PRN IV MODERATE TO SEVERE PAIN; Start 01/01/18 at 07:00; Stop 01/01/18 at 12:00; Status DC Morphine Sulfate (Morphine Sulfate) 1 mg PRN Q10MIN PRN IV SEVERE PAIN; Start 01/01/18 at 07:00; Stop 01/01/18 at 12:00; Status DC Ringer's Solution 1,000 ml @ 30 mls/hr Q24H IV Last administered on at 08:17; Start 01/01/18 at 07:00; Stop 01/01/18 at 18:59 Lidocaine HCl (Xylocaine-Mpf 1% 2ml Vial) 2 ml PRN 1X PRN ID IV START; Start 01/01/18 at 07:00; Stop 01/01/18 at 12:00; Status DC Hydromorphone HCl (Dilaudid) 0.5 mg PRN Q10MIN PRN IV SEV PAIN, Second choice; Start 01/01/18 at 07:00; Stop 01/01/18 at 12:00; Status DC Prochlorperazine Edisylate (Compazine) 5 mg PACU PRN PRN IV NAUSEA, MRX1; Start 01/01/18 at 07:00; Stop 01/01/18 at 12:00; Status DC Heparin Sodium (Porcine) (Heparin Sodium) 10,000 unit STK-MED ONCE .ROUTE ; Start 12/31/17 at 13:58; Stop 12/31/17 at 13:59; Status DC Sodium Chloride 90 meq/Potassium Chloride 35 meq/ Potassium Phosphate 13.6 mmol/ Magnesium Sulfate 5 meq/ Calcium Gluconate 10 meq/ Multivitamins 10 ml/Chromium / Copper/Manganese/ Seleni/Zn 1 ml/ Total Parenteral Nutrition/Amino Acids/ Dextrose/ Fat Emulsion Intravenous 1,512 ml @ 63 mls/hr TPN CONT IV Last administered on 12/31/17at 21:58; Start 12/31/17 at 22:00; Stop 01/01/18 at 21: 59 Cefazolin Sodium 50 ml @ 100 mls/hr 1X PREOP PRN IV PER PROTOCOL Last administered on 01/01/18at 08:41; Start 01/01/18 at 11:00; Stop 01/01/18 at 12 :00; Status DC Midazolam HCl (Versed) 2 mg PRN 1X PRN IV PRIOR TO PROCEDURE; Start 01/01/18 at 08:15; Stop 01/01/18 at 12:00; Status DC Fentanyl Citrate (Fentanyl 2ml Vial) 25 mcg PRN Q5MIN PRN IV X 2 DOSES FOR PAIN ; Start 01/01/18 at 08:15; Stop 01/01/18 at 18:00; Status Cancel Fentanyl Citrate (Fentanyl 2ml Vial) 50 mcg PRN Q5MIN PRN IV X 2 DOSES FOR PAIN ; Start 01/01/18 at 08:15; Stop 01/01/18 at 18:00; Status Cancel Ringer's Solution 1,000 ml @ 125 mls/hr Q8H IV ; Start 01/01/18 at 08:02; Stop 01/01/18 at 12:00; Status DC Lidocaine HCl (Xylocaine-Mpf 1% 2ml Vial) 2 ml 1X PRN PRN ID IV START; Start 01/01/18 at 08:15; Stop 01/01/18 at 18:00; Status Cancel Cefazolin Sodium 50 ml @ As Directed STK-MED ONCE IV ; Start 01/01/18 at 08:19 ; Stop 01/01/18 at 08:20; Status DC Sodium Chloride 90 meq/Potassium Chloride 35 meq/ Potassium Phosphate 13.6 mmol/ Magnesium Sulfate 5 meq/ Calcium Gluconate 10 meq/ Multivitamins 10 ml/Chromium / Copper/Manganese/ Seleni/Zn 1 ml/ Total Parenteral Nutrition/Amino Acids/ Dextrose/ Fat Emulsion Intravenous 1,512 ml @ 63 mls/hr TPN CONT IV ; Start 01/01/18 at 22:00; Stop 01/02/18 at 21:59 Active Scripts Active Reported Amoxicillin 875 Mg Tablet 1 Tab PO BID Levothyroxine Sodium 25 Mcg Tablet 1 Tab PO DAILY Proair Hfa Inhaler (Albuterol Sulfate) 8.5 Gm Hfa.aer.ad 1 Puff INH PRN Q6HRS PRN [kaitlib fe] Hydrocodone-Apap 7.5-325/15 Soln (Hydrocodone Bit/Acetaminophen) 15 Ml Solution 15 Ml PO PRN Q4HRS PRN Prednisone 50 Mg Tablet 1 Tab PO DAILY Fluticasone Propionate Nasal Stephenson (Fluticasone Propionate) 16 Gm Stephenson.susp 1 Stephenson NS DAILY [zoloft] [ativan] Vitals/I & O Vital Sign - Last 24 Hours 12/31/17 12/31/17 12/31/17 01/01/18 19:00 20:00 23:00 03:00 Temp 97.5 97.7 97.5 97.5 97.7 97.5 Pulse 90 75 68 Resp 18 18 18 B/P (MAP) 135/87 (103) 123/72 (89) 116/74 (88) Pulse Ox 99 100 97 O2 Delivery Room Air Room Air Room Air Room Air 01/01/18 01/01/18 01/01/18 01/01/18 07:00 07:55 08:00 08:58 Temp 97.6 98.5 98.0 97.6 98.5 98.0 Pulse 76 88 84 Resp 17 20 20 B/P (MAP) 117/77 (90) 131/86 Pulse Ox 98 100 100 O2 Delivery Room Air Room Air Nasal Cannula O2 Flow Rate 2 01/01/18 01/01/18 01/01/18 01/01/18 09:13 09:21 09:51 10:21 Pulse 88 96 Resp 20 20 18 17 B/P (MAP) 122/71 122/80 Pulse Ox 100 100 O2 Delivery Nasal Cannula Room Air Room Air Room Air O2 Flow Rate 2 01/01/18 01/01/18 11:00 12:19 Temp 97.5 97.5 Pulse 78 Resp 18 18 B/P (MAP) 124/76 (92) Pulse Ox 98 O2 Delivery Room Air Room Air Intake and Output 12/31/17 12/31/17 01/01/18 15:00 23:00 07:00 Intake Total 0 ml Balance 0 ml EVELYN ARREGUIN III DO Jan 01, 2018 13:19
[2018-01-01 15:00] VITALS: BP 117/76
[2018-01-01 19:00] VITALS: BP 127/76
[2018-01-01] MEDS: FAMOTIDINE 20 MG/2 ML VIAL IVP SCH (20:46)
[2018-01-01] MEDS: MIRTAZAPINE 15 MG TABLET PO SCH (21:00)
[2018-01-01] MEDS ORDERED: TOTAL PARENTERAL NUTRITION IV SCH ×10 (22:00)
[2018-01-01] MEDS ORDERED: AMINO ACIDS IV SCH ×10 (22:00)
[2018-01-01] MEDS ORDERED: [UNRECOGNIZED DRUG - OTHER] IV SCH ×10 (22:00)
[2018-01-01] MEDS ORDERED: DEXTROSE 70% IV SCH ×10 (22:00)
[2018-01-01 23:00] VITALS: BP 119/78
[2018-01-02] MEDS: PYRIDOSTIGMINE BROMIDE 10 MG/2 ML AMPUL. IV SCH ×3 (01:46→14:41)
[2018-01-02] MEDS: MORPHINE SULFATE 2 MG/ML VIAL. IV PRN ×8 (01:46→20:35)
[2018-01-02 03:00] VITALS: BP 128/76
[2018-01-02 06:00] LABS: ALBUMIN 3.6 g/dL (3.4-5.0); ALBUMIN/GLOBULIN RATIO 1.8 (1.0-1.7); CALCIUM 8.6 mg/dL (8.5-10.1); CREATININE 0.6 mg/dL (0.6-1.0); GFR 123.9; MAGNESIUM 2.3 mg/dL (1.8-2.4); PHOSPHORUS 4.7 mg/dL (2.6-4.7); POTASSIUM 4.4 mmol/L (3.5-5.1); TOTAL BILIRUBIN 0.5 mg/dL (0.2-1.0); TOTAL PROTEIN 5.6 g/dL (6.4-8.2)
[2018-01-02] MEDS: INSULIN LISPRO 300 UNITS/3 ML INSULN.PEN. SQ SCH ×4 (06:00→17:24)
[2018-01-02 07:00] VITALS: BP 120/73
[2018-01-02] MEDS: ONDANSETRON PF 4 MG/2 ML VIAL. IV PRN (08:30)
[2018-01-02] MEDS: methylPREDNISolone SOD SUCC PF 40 MG/ML VIAL. IV SCH (08:31)
--- NOTE | 2018-01-02 09:56 | PDOC ---
Subjective: Subjective: Having abd pain this morning - was in tears but better now w/ pain meds ( morphine). Tube feeds running - RN says residual of 15 earlier, also says pt said pain felt like gas. No BM in over a week, not passing much gas but feels "rumbling." Objective: Objective: Called by floor dental office receptionist earlier - mother upset w/ pt's abd pain. Vital Signs: Vital Signs Date Time Temp Pulse Resp B/P (MAP) Pulse Ox O2 Delivery O2 Flow Rate FiO2 01/02/18 08:30 98 Room Air 2.0 01/02/18 06:42 14 01/02/18 03:00 97.5 110 128/76 (93) 97.5 Labs: Laboratory Tests Test 01/01/18 14:23 01/01/18 20:36 01/02/18 01:39 01/02/18 04:30 Glucose (Fingerstick) 196 mg/dL 128 mg/dL 179 mg/dL Sodium Level 139 mmol/L Potassium Level 4.4 mmol/L Chloride Level 101 mmol/L Carbon Dioxide Level 30 mmol/L Anion Gap 8 Blood Urea Nitrogen 21 mg/dL Creatinine 0.6 mg/dL Estimated GFR (Cockcroft-Gault) 123.9 BUN/Creatinine Ratio 35 Glucose Level 209 mg/dL Calcium Level 8.6 mg/dL Phosphorus Level 4.7 mg/dL Magnesium Level 2.3 mg/dL Total Bilirubin 0.5 mg/dL Aspartate Amino Transf (AST/SGOT) 31 U/L Alanine Aminotransferase (ALT/SGPT) 149 U/L Alkaline Phosphatase 39 U/L Total Protein 5.6 g/dL Albumin 3.6 g/dL Albumin/Globulin Ratio 1.8 Triglycerides Level 163 mg/dL Test 01/02/18 06:08 Glucose (Fingerstick) 160 mg/dL Imaging: EGD with PEG non-erosive gastritis S/p 20 FR Bard PEG placement PE: GEN: NAD LUNGS: CTAB HEART: RRR ABD: BS quiet, abd soft, PEG site - removed gauze from under bumper and loosened NEURO/PSYCH: A & O 3 A/P: Myasthenia gravis w/ dysphagia s/p PEG 12/31/17 Abd pain -- Check KUB. OFELIA QUINN Jan 02, 2018 09:56
[2018-01-02] MEDS: NORMAL SALINE IVP SCH (10:07)
[2018-01-02] MEDS: LEVOTHYROXINE SODIUM IVP SCH (10:07)
[2018-01-02] MEDS: FLUTICASONE 50MCG/NASAL SPRAY 16GM BOTTLE. NS SCH (10:10)
--- NOTE | 2018-01-02 10:55 | RAD ---
Single view of the abdomen 01/02/2018 INDICATION: Abdominal pain following PEG tube placement COMPARISON STUDY: December 19, 2017.: KUB FINDINGS: The bowel gas pattern is nonobstructive. Contrast is seen in the proximal colon and to a lesser degree the distal large bowel. There is a PEG tube projecting over the central upper abdomen. No gross pneumoperitoneum is identified, though single supine radiograph is limited for evaluation. No acute osseous changes are seen. IMPRESSION: PEG tube noted. No gross abdominal abnormalities identified. Electronically signed by: Ganesh Ferrara MD (01/02/2018 10:51 AM) [id number]
[2018-01-02 11:00] VITALS: BP 118/77
--- NOTE | 2018-01-02 11:15 | PDOC ---
Renal-Progress Notes Subjective Notes Notes SOME ABD PAIN BUT BETTER History of Present Illness Hx of present illness STABLE Vitals Vitals Vital Signs Date Time Temp Pulse Resp B/P (MAP) Pulse Ox O2 Delivery O2 Flow Rate FiO2 01/02/18 09:00 98 Room Air 2.0 01/02/18 07:00 97.3 84 17 120/73 (89) 97.3 Weight Weight [ ] I.O. Intake and Output Intake and Output 01/02/18 07:00 Intake Total 60 ml Balance 60 ml Intake Oral 60 ml # Voids 4 Labs Labs Laboratory Tests Test 01/01/18 14:23 01/01/18 20:36 01/02/18 01:39 01/02/18 04:30 Glucose (Fingerstick) 196 mg/dL (70-99) 128 mg/dL (70-99) 179 mg/dL (70-99) Sodium Level 139 mmol/L (136-145) Potassium Level 4.4 mmol/L (3.5-5.1) Chloride Level 101 mmol/L (98-107) Carbon Dioxide Level 30 mmol/L (21-32) Anion Gap 8 (6-14) Blood Urea Nitrogen 21 mg/dL (7-20) Creatinine 0.6 mg/dL (0.6-1.0) Estimated GFR (Cockcroft-Gault) 123.9 BUN/Creatinine Ratio 35 (6-20) Glucose Level 209 mg/dL (70-99) Calcium Level 8.6 mg/dL (8.5-10.1) Phosphorus Level 4.7 mg/dL (2.6-4.7) Magnesium Level 2.3 mg/dL (1.8-2.4) Total Bilirubin 0.5 mg/dL (0.2-1.0) Aspartate Amino Transf (AST/SGOT) 31 U/L (15-37) Alanine Aminotransferase (ALT/SGPT) 149 U/L (14-59) Alkaline Phosphatase 39 U/L (46-116) Total Protein 5.6 g/dL (6.4-8.2) Albumin 3.6 g/dL (3.4-5.0) Albumin/Globulin Ratio 1.8 (1.0-1.7) Triglycerides Level 163 mg/dL (0-150) Test 01/02/18 06:08 Glucose (Fingerstick) 160 mg/dL (70-99) Review of Systems Constitutional: yes: weakness, alert, oriented Ears/Nose/Throat: Yes: no symptom reported Eyes: Yes: no symptom reported Pulmonary: Yes no symptom reported Cardiovascular: Yes no symptom reported Genitourinary: Yes: no symptom reported Musculoskeletal: Yes: muscle stiffness, other (GENERALIZED WEAKNESS) Psychiatric/Neurological: Yes: tingling, weakness Endocrine: Yes: no symptom reported Hematologic/Lymphatic: Yes: no symptom reported Physical Exam General Appearance: no apparent distress Skin: warm Respiratory: bilateral CTA Heart: S1S2, RRR Abdomen: soft, bowel sounds present Genitourinary: bladder flat Extremities: pulses present, no edema, atrophy Neurology: alert, oriented, follow commands, Ext weakness Assessment Assessment IMP M GRAVIS-SYMPTOMS ARE SLIGHTLY BETTER PER PT DIPLOPIA-BETTER DYSPHAGIA S/P PEG PLAN TF TO CONTINUE STOP TPN TPE TODAY LABS PENDING RICHARDSON FORD MD Jan 02, 2018 11:15
[2018-01-02 11:37] LABS: BASO % 0 % (0-3); EOS % 0 % (0-3); HEMATOCRIT 36.5 % (36.0-47.0); HEMOGLOBIN 12.1 g/dL (12.0-15.5); LYMPH # 0.9 x10^3/uL (1.0-4.8); LYMPH % 6 % (24-48); MEAN CORPUSCULAR HEMOGLOBIN 28 pg (25-35); MEAN CORPUSCULAR HGB CONC 33 g/dL (31-37); MEAN CORPUSCULAR VOLUME 85 fL (79-100); MONO % 6 % (0-9); NEUT # 13.7 x10^3uL (1.8-7.7); NEUT % 88 % (31-73); PLATELET COUNT 124 x10^3/uL (140-400); RED BLOOD COUNT 4.29 x10^6/uL (3.50-5.40); RED CELL DISTRIBUTION WIDTH 12.5 % (11.5-14.5); WHITE BLOOD COUNT 15.6 x10^3/uL (4.0-11.0)
--- NOTE | 2018-01-02 12:02 | PDOC ---
PROGRESS NOTES Chief Complaint Chief Complaint Myasthenia gravis - new diagnosis Diplopia Dysphagia Eze's thyroiditis Easy bruising Myasthenia gravis w/ dysphagia s/p PEG 12/31/17 Abd pain, obstipation History of Present Illness History of Present Illness Pt seen and examined Dw RN Rest with NAD Vitals Vitals Vital Signs Date Time Temp Pulse Resp B/P (MAP) Pulse Ox O2 Delivery O2 Flow Rate FiO2 01/02/18 09:00 98 Room Air 2.0 01/02/18 07:00 97.3 84 17 120/73 (89) 97.3 Physical Exam General: Oriented X3, Cooperative, No acute distress Heart: Regular rate, Normal S1, Normal S2 Lungs: Clear Abdomen: Normal bowel sounds, Soft, No tenderness, No hepatosplenomegaly, No masses Extremities: No clubbing, No cyanosis Skin: No breakdown, No significant lesion, Other (lipoma at the nape) Labs LABS Laboratory Tests Test 01/01/18 14:23 01/01/18 20:36 01/02/18 01:39 01/02/18 04:30 Glucose (Fingerstick) 196 mg/dL (70-99) 128 mg/dL (70-99) 179 mg/dL (70-99) White Blood Count 15.6 x10^3/uL (4.0-11.0) Red Blood Count 4.29 x10^6/uL (3.50-5.40) Hemoglobin 12.1 g/dL (12.0-15.5) Hematocrit 36.5 % (36.0-47.0) Mean Corpuscular Volume 85 fL (79-100) Mean Corpuscular Hemoglobin 28 pg (25-35) Mean Corpuscular Hemoglobin Concent 33 g/dL (31-37) Red Cell Distribution Width 12.5 % (11.5-14.5) Platelet Count 124 x10^3/uL (140-400) Neutrophils (%) (Auto) 88 % (31-73) Lymphocytes (%) (Auto) 6 % (24-48) Monocytes (%) (Auto) 6 % (0-9) Eosinophils (%) (Auto) 0 % (0-3) Basophils (%) (Auto) 0 % (0-3) Neutrophils # (Auto) 13.7 x10^3uL (1.8-7.7) Lymphocytes # (Auto) 0.9 x10^3/uL (1.0-4.8) Monocytes # (Auto) 1.0 x10^3/uL (0.0-1.1) Eosinophils # (Auto) 0.0 x10^3/uL (0.0-0.7) Basophils # (Auto) 0.0 x10^3/uL (0.0-0.2) Sodium Level 139 mmol/L (136-145) Potassium Level 4.4 mmol/L (3.5-5.1) Chloride Level 101 mmol/L (98-107) Carbon Dioxide Level 30 mmol/L (21-32) Anion Gap 8 (6-14) Blood Urea Nitrogen 21 mg/dL (7-20) Creatinine 0.6 mg/dL (0.6-1.0) Estimated GFR (Cockcroft-Gault) 123.9 BUN/Creatinine Ratio 35 (6-20) Glucose Level 209 mg/dL (70-99) Calcium Level 8.6 mg/dL (8.5-10.1) Phosphorus Level 4.7 mg/dL (2.6-4.7) Magnesium Level 2.3 mg/dL (1.8-2.4) Total Bilirubin 0.5 mg/dL (0.2-1.0) Aspartate Amino Transf (AST/SGOT) 31 U/L (15-37) Alanine Aminotransferase (ALT/SGPT) 149 U/L (14-59) Alkaline Phosphatase 39 U/L (46-116) Total Protein 5.6 g/dL (6.4-8.2) Albumin 3.6 g/dL (3.4-5.0) Albumin/Globulin Ratio 1.8 (1.0-1.7) Triglycerides Level 163 mg/dL (0-150) Test 01/02/18 06:08 Glucose (Fingerstick) 160 mg/dL (70-99) Assessment and Plan Assessmemt and Plan Problems Medical Problems: (1) Diplopia Status: Acute (2) Marijuana abuse Status: Acute (3) Myasthenia gravis with acute exacerbation Status: Acute (4) Neck muscle weakness Status: Acute (5) RUE weakness Status: Acute (6) Sinusitis Status: Acute Comment Review of Relevant I have reviewed the following items maliha (where applicable) has been applied. Labs Laboratory Tests Test 12/31/17 17:41 01/01/18 00:08 01/01/18 06:02 01/01/18 06:15 Glucose (Fingerstick) 173 mg/dL (70-99) 169 mg/dL (70-99) 195 mg/dL (70-99) Sodium Level 140 mmol/L (136-145) Potassium Level 4.2 mmol/L (3.5-5.1) Chloride Level 104 mmol/L (98-107) Carbon Dioxide Level 32 mmol/L (21-32) Anion Gap 4 (6-14) Blood Urea Nitrogen 17 mg/dL (7-20) Creatinine 0.5 mg/dL (0.6-1.0) Estimated GFR (Cockcroft-Gault) 152.9 BUN/Creatinine Ratio 34 (6-20) Glucose Level 189 mg/dL (70-99) Calcium Level 8.2 mg/dL (8.5-10.1) Total Bilirubin 0.5 mg/dL (0.2-1.0) Aspartate Amino Transf (AST/SGOT) 43 U/L (15-37) Alanine Aminotransferase (ALT/SGPT) 161 U/L (14-59) Alkaline Phosphatase 31 U/L (46-116) Total Protein 5.0 g/dL (6.4-8.2) Albumin 3.3 g/dL (3.4-5.0) Albumin/Globulin Ratio 1.9 (1.0-1.7) Test 01/01/18 14:23 01/01/18 20:36 01/02/18 01:39 01/02/18 04:30 Glucose (Fingerstick) 196 mg/dL (70-99) 128 mg/dL (70-99) 179 mg/dL (70-99) White Blood Count 15.6 x10^3/uL (4.0-11.0) Red Blood Count 4.29 x10^6/uL (3.50-5.40) Hemoglobin 12.1 g/dL (12.0-15.5) Hematocrit 36.5 % (36.0-47.0) Mean Corpuscular Volume 85 fL (79-100) Mean Corpuscular Hemoglobin 28 pg (25-35) Mean Corpuscular Hemoglobin Concent 33 g/dL (31-37) Red Cell Distribution Width 12.5 % (11.5-14.5) Platelet Count 124 x10^3/uL (140-400) Neutrophils (%) (Auto) 88 % (31-73) Lymphocytes (%) (Auto) 6 % (24-48) Monocytes (%) (Auto) 6 % (0-9) Eosinophils (%) (Auto) 0 % (0-3) Basophils (%) (Auto) 0 % (0-3) Neutrophils # (Auto) 13.7 x10^3uL (1.8-7.7) Lymphocytes # (Auto) 0.9 x10^3/uL (1.0-4.8) Monocytes # (Auto) 1.0 x10^3/uL (0.0-1.1) Eosinophils # (Auto) 0.0 x10^3/uL (0.0-0.7) Basophils # (Auto) 0.0 x10^3/uL (0.0-0.2) Sodium Level 139 mmol/L (136-145) Potassium Level 4.4 mmol/L (3.5-5.1) Chloride Level 101 mmol/L (98-107) Carbon Dioxide Level 30 mmol/L (21-32) Anion Gap 8 (6-14) Blood Urea Nitrogen 21 mg/dL (7-20) Creatinine 0.6 mg/dL (0.6-1.0) Estimated GFR (Cockcroft-Gault) 123.9 BUN/Creatinine Ratio 35 (6-20) Glucose Level 209 mg/dL (70-99) Calcium Level 8.6 mg/dL (8.5-10.1) Phosphorus Level 4.7 mg/dL (2.6-4.7) Magnesium Level 2.3 mg/dL (1.8-2.4) Total Bilirubin 0.5 mg/dL (0.2-1.0) Aspartate Amino Transf (AST/SGOT) 31 U/L (15-37) Alanine Aminotransferase (ALT/SGPT) 149 U/L (14-59) Alkaline Phosphatase 39 U/L (46-116) Total Protein 5.6 g/dL (6.4-8.2) Albumin 3.6 g/dL (3.4-5.0) Albumin/Globulin Ratio 1.8 (1.0-1.7) Triglycerides Level 163 mg/dL (0-150) Test 01/02/18 06:08 Glucose (Fingerstick) 160 mg/dL (70-99) Laboratory Tests Test 01/01/18 14:23 01/01/18 20:36 01/02/18 01:39 01/02/18 04:30 Glucose (Fingerstick) 196 mg/dL (70-99) 128 mg/dL (70-99) 179 mg/dL (70-99) White Blood Count 15.6 x10^3/uL (4.0-11.0) Red Blood Count 4.29 x10^6/uL (3.50-5.40) Hemoglobin 12.1 g/dL (12.0-15.5) Hematocrit 36.5 % (36.0-47.0) Mean Corpuscular Volume 85 fL (79-100) Mean Corpuscular Hemoglobin 28 pg (25-35) Mean Corpuscular Hemoglobin Concent 33 g/dL (31-37) Red Cell Distribution Width 12.5 % (11.5-14.5) Platelet Count 124 x10^3/uL (140-400) Neutrophils (%) (Auto) 88 % (31-73) Lymphocytes (%) (Auto) 6 % (24-48) Monocytes (%) (Auto) 6 % (0-9) Eosinophils (%) (Auto) 0 % (0-3) Basophils (%) (Auto) 0 % (0-3) Neutrophils # (Auto) 13.7 x10^3uL (1.8-7.7) Lymphocytes # (Auto) 0.9 x10^3/uL (1.0-4.8) Monocytes # (Auto) 1.0 x10^3/uL (0.0-1.1) Eosinophils # (Auto) 0.0 x10^3/uL (0.0-0.7) Basophils # (Auto) 0.0 x10^3/uL (0.0-0.2) Sodium Level 139 mmol/L (136-145) Potassium Level 4.4 mmol/L (3.5-5.1) Chloride Level 101 mmol/L (98-107) Carbon Dioxide Level 30 mmol/L (21-32) Anion Gap 8 (6-14) Blood Urea Nitrogen 21 mg/dL (7-20) Creatinine 0.6 mg/dL (0.6-1.0) Estimated GFR (Cockcroft-Gault) 123.9 BUN/Creatinine Ratio 35 (6-20) Glucose Level 209 mg/dL (70-99) Calcium Level 8.6 mg/dL (8.5-10.1) Phosphorus Level 4.7 mg/dL (2.6-4.7) Magnesium Level 2.3 mg/dL (1.8-2.4) Total Bilirubin 0.5 mg/dL (0.2-1.0) Aspartate Amino Transf (AST/SGOT) 31 U/L (15-37) Alanine Aminotransferase (ALT/SGPT) 149 U/L (14-59) Alkaline Phosphatase 39 U/L (46-116) Total Protein 5.6 g/dL (6.4-8.2) Albumin 3.6 g/dL (3.4-5.0) Albumin/Globulin Ratio 1.8 (1.0-1.7) Triglycerides Level 163 mg/dL (0-150) Test 01/02/18 06:08 Glucose (Fingerstick) 160 mg/dL (70-99) Medications Current Medications Meclizine HCl (Antivert) 25 mg 1X ONCE PO Last administered on 12/17/17at 20:00 ; Start 12/17/17 at 20:00; Stop 12/17/17 at 20:01; Status DC Sodium Chloride 1,000 ml @ 1,000 mls/hr 1X ONCE IV Last administered on at 20:35; Start 12/17/17 at 20:15; Stop 12/17/17 at 21:14; Status DC Ketorolac Tromethamine (Toradol 15mg Vial) 15 mg 1X ONCE IV Last administered on 12/17/17at 20:36; Start 12/17/17 at 20:15; Stop 12/17/17 at 20:16; Status DC Diphenhydramine HCl (Benadryl) 25 mg 1X ONCE PO Last administered on at 02:16; Start 12/18/17 at 02:15; Stop 12/18/17 at 02:18; Status DC Acetaminophen (Tylenol) 500 mg PRN Q6HRS PRN PO MILD PAIN / TEMP; Start at 09:00 Acetaminophen/ Codeine Phosphate (Tylenol #3) 1 tab PRN Q6HRS PRN PO PAIN; Start 12/18/17 at 09:00; Stop 12/18/17 at 12:08; Status DC Ibuprofen (Motrin) 600 mg PRN Q6HRS PRN PO INFLAMMATION; Start 12/18/17 at 09: 00; Stop 12/19/17 at 16:23; Status DC Ondansetron HCl (Zofran) 4 mg PRN Q6HRS PRN IV NAUSEA/VOMITING Last administered on 01/02/18at 08:30; Start 12/18/17 at 09:00 Ondansetron HCl (Zofran Odt) 4 mg PRN Q6HRS PRN PO NAUSEA/VOMITING; Start 12/18 at 09:00; Stop 12/18/17 at 12:08; Status DC Fluticasone Propionate (Flonase) 1 spray DAILY NS Last administered on at 10:10; Start 12/18/17 at 09:00 Acetaminophen/ Hydrocodone Bitart (Lortab 7.5-325/ 15ml Oral Solution) 15 ml PRN Q4HRS PRN PO MODERATE PAIN; Start 12/18/17 at 09:00; Stop 12/19/17 at 16:23 ; Status DC Non-Formulary Medication (Albuterol Sulfate (Proair Hfa Inhaler)) 1 puff PRN Q6HRS PRN INH SHORTNESS OF BREATH; Start 12/18/17 at 09:00; Status UNV Amoxicillin (Amoxil) 750 mg BID PO Last administered on 12/18/17at 21:02; Start 12/18/17 at 10:00; Stop 12/19/17 at 16:23; Status DC Levothyroxine Sodium (Synthroid) 25 mcg DAILY07 PO ; Start 12/18/17 at 10:30; Stop 12/18/17 at 12:08; Status DC Prednisone (Prednisone) 50 mg DAILY PO ; Start 12/18/17 at 10:00; Stop 12/18/17 at 12:08; Status DC Alprazolam (Xanax) 0.25 mg PRN Q8HRS PRN PO ANXIETY / AGITATION; Start at 09:00; Stop 12/19/17 at 08:14; Status DC Zolpidem Tartrate (Ambien) 5 mg PRN QHS PRN PO INSOMNIA; Start 12/18/17 at 09: 00; Stop 12/18/17 at 12:08; Status DC Cetirizine HCl (ZyrTEC) 10 mg DAILY PO ; Start 12/18/17 at 10:00; Stop 12/18/17 at 12:08; Status DC Non-Formulary Medication 1 ea 1X ONCE IV ; Start 12/18/17 at 09:00; Stop at 09:01; Status UNV Potassium Chloride/Dextrose/ Sod Cl 1,000 ml @ 80 mls/hr [id number] IV Last administered on 12/19/17at 10:00; Start 12/18/17 at 09:00; Stop 12/20/17 at 09:07 ; Status DC Albuterol Sulfate (Ventolin Neb Soln) 2.5 mg PRN Q6HRS PRN NEB SHORTNESS OF BREATH Last administered on 12/27/17at 19:26; Start 12/18/17 at 09:30 Iohexol (Omnipaque 300 Mg/ml) 75 ml 1X ONCE IV Last administered on 12/18/17at 10:31; Start 12/18/17 at 10:15; Stop 12/18/17 at 10:16; Status DC Info (CONTRAST GIVEN -- Rx MONITORING) 1 each PRN DAILY PRN MC SEE COMMENTS; Start 12/18/17 at 10:15; Stop 12/20/17 at 10:14; Status DC Levothyroxine Sodium 15 mcg/ Sodium Chloride 5 ml @ 100 mls/hr DAILY IVP Last administered on 12/20/17at 09:41; Start 12/18/17 at 12:30; Stop 12/20/17 at 11:44 ; Status DC Lorazepam (Ativan) 1 mg PRN Q4HRS PRN IV ANXIETY / AGITATION Last administered on 01/02/18at 08:30; Start 12/18/17 at 13:15 Alprazolam (Xanax) 0.25 mg PRN Q8HRS PRN NG ANXIETY / AGITATION Last administered on 12/19/17at 01:13; Start 12/18/17 at 13:15; Stop 12/19/17 at 16:23 ; Status DC Pyridostigmine [place] (Mestinon) 60 mg BID NG Last administered on 12/18/17at 21:01; Start 12/18/17 at 13:00; Stop 12/19/17 at 16:23; Status DC Prednisone (Prednisone) 50 mg DAILY PO Last administered on 12/18/17at 16:03; Start 12/18/17 at 13:00; Stop 12/19/17 at 16:23; Status DC Famotidine (Pepcid) 20 mg QHS PO Last administered on 12/18/17at 21:01; Start at 21:00; Stop 12/19/17 at 16:23; Status DC Calcium Carbonate/ Glycine (Oscal) 500 mg TIDAFTMEAL PO ; Start 12/18/17 at 18: 00; Stop 12/19/17 at 16:23; Status DC Ergocalciferol (Vitamin D2) 50,000 unit MoTh PO ; Start 12/19/17 at 09:00; Stop 12/19/17 at 16:23; Status DC Lidocaine/Sodium Bicarbonate (Buffered Lidocaine 1%) 3 ml STK-MED ONCE .ROUTE ; Start 12/18/17 at 14:32; Stop 12/18/17 at 14:33; Status DC Heparin Sodium (Porcine) (Heparin Sodium) 10,000 unit STK-MED ONCE .ROUTE ; Start 12/18/17 at 14:32; Stop 12/18/17 at 14:33; Status DC Lidocaine/Sodium Bicarbonate (Buffered Lidocaine 1%) 3 ml 1X ONCE INJ Last administered on 12/18/17at 15:15; Start 12/18/17 at 15:15; Stop 12/18/17 at 15:16 ; Status DC Heparin Sodium (Porcine) (Heparin Sodium) 2,200 unit 1X ONCE INT CAT Last administered on 12/18/17at 15:15; Start 12/18/17 at 15:15; Stop 12/18/17 at 15:16 ; Status DC Scopolamine (Transderm-Scop) 1 patch 1X ONCE TD Last administered on at 21:41; Start 12/18/17 at 21:30; Stop 12/19/17 at 16:23; Status DC Albumin Human 1,500 ml @ 0 mls/hr 1X ONCE IV Last administered on 12/19/17at 11:38; Start 12/19/17 at 08:15; Stop 12/19/17 at 08:16; Status DC Heparin Sodium (Porcine) (Heparin Sodium) 10,000 unit STK-MED ONCE .ROUTE ; Start 12/19/17 at 08:40; Stop 12/19/17 at 08:41; Status DC Info (Tpn Per Pharmacy) 1 each PRN DAILY PRN MC SEE COMMENTS Last administered on 01/01/18at 11:31; Start 12/20/17 at 16:30 Pyridostigmine [place] (Regonol) 2.5 mg Q12HR IV Last administered on at 09:56; Start 12/19/17 at 21:00; Stop 12/26/17 at 15:52; Status DC Methylprednisolone Sodium Succinate (SOLU-Medrol 40MG VIAL) 40 mg Q12HR IV Last administered on 01/02/18at 08:31; Start 12/19/17 at 21:00 Famotidine (Pepcid Vial) 20 mg QHS IVP Last administered on 12/19/17at 21:33; Start 12/19/17 at 21:00; Stop 12/20/17 at 11:44; Status DC Morphine Sulfate (Morphine Sulfate) 2 mg PRN Q2HR PRN IV MODERATE TO SEVERE PAIN Last administered on 01/02/18at 08:30; Start 12/19/17 at 23:15 Amino Acids/ Glycerin/ Electrolytes 1,000 ml @ 80 mls/hr [id number] IV Last administered on 12/20/17at 09:57; Start 12/20/17 at 09:30; Stop 12/20/17 at 11:44 ; Status DC Alteplase, Recombinant (Cathflo) 2 mg 1X ONCE IV Last administered on at 12:37; Start 12/20/17 at 11:45; Stop 12/20/17 at 11:46; Status DC Cyclobenzaprine HCl (Flexeril) 5 mg QID PO Last administered on 12/21/17at 09:10 ; Start 12/20/17 at 17:00; Stop 12/29/17 at 11:33; Status DC Cyclobenzaprine HCl (Flexeril) 10 mg 1X ONCE PO ; Start 12/20/17 at 11:45; Stop 12/20/17 at 11:53; Status DC Levothyroxine Sodium (Synthroid) 25 mcg DAILY07 PO ; Start 12/21/17 at 07:00; Stop 12/21/17 at 07:00; Status DC Levothyroxine Sodium 12.5 mcg/ Sodium Chloride 5 ml @ 100 mls/hr DAILY IVP Last administered on 01/02/18at 10:07; Start 12/21/17 at 09:00 Sodium Chloride 90 meq/Potassium Chloride 50 meq/ Potassium Phosphate 13.6 mmol/ Magnesium Sulfate 5 meq/ Calcium Gluconate 5 meq/ Multivitamins 10 ml/Chromium/ Copper/Manganese/ Seleni/Zn 1 ml/ Total Parenteral Nutrition/Amino Acids/ Dextrose/ Fat Emulsion Intravenous 1,512 ml @ 63 mls/hr TPN CONT IV Last administered on 12/20/17at 20:58; Start 12/20/17 at 22:00; Stop 12/21/17 at 21:59 ; Status DC Albumin Human 1,200 ml @ 0 mls/hr 1X ONCE IV Last administered on 12/21/17at 10:40; Start 12/21/17 at 08:45; Stop 12/21/17 at 08:46; Status DC Heparin Sodium (Porcine) (Heparin Sodium) 10,000 unit STK-MED ONCE .ROUTE ; Start 12/21/17 at 08:50; Stop 12/21/17 at 08:51; Status DC Diphenhydramine HCl (Benadryl) 50 mg STK-MED ONCE .ROUTE ; Start 12/21/17 at 11: 46; Stop 12/21/17 at 11:47; Status DC Diphenhydramine HCl (Benadryl) 50 mg 1X ONCE IVP Last administered on at 11:59; Start 12/21/17 at 12:00; Stop 12/21/17 at 12:01; Status DC Sodium Chloride 90 meq/Potassium Chloride 50 meq/ Potassium Phosphate 13.6 mmol/ Magnesium Sulfate 5 meq/ Calcium Gluconate 5 meq/ Multivitamins 10 ml/Chromium/ Copper/Manganese/ Seleni/Zn 1 ml/ Total Parenteral Nutrition/Amino Acids/ Dextrose/ Fat Emulsion Intravenous 1,512 ml @ 63 mls/hr TPN CONT IV Last administered on 12/21/17at 22:00; Start 12/21/17 at 22:00; Stop 12/22/17 at 21:59 ; Status DC Sodium Chloride 90 meq/Potassium Chloride 50 meq/ Potassium Phosphate 13.6 mmol/ Magnesium Sulfate 5 meq/ Calcium Gluconate 5 meq/ Multivitamins 10 ml/Chromium/ Copper/Manganese/ Seleni/Zn 1 ml/ Total Parenteral Nutrition/Amino Acids/ Dextrose/ Fat Emulsion Intravenous 1,512 ml @ 63 mls/hr TPN CONT IV Last administered on 12/22/17at 21:26; Start 12/22/17 at 22:00; Stop 12/23/17 at 21:59 ; Status DC Famotidine (Pepcid Vial) 20 mg QHS IVP Last administered on 01/01/18at 20:46; Start 12/23/17 at 21:00 Sodium Chloride 90 meq/Potassium Chloride 50 meq/ Potassium Phosphate 13.6 mmol/ Magnesium Sulfate 5 meq/ Calcium Gluconate 5 meq/ Multivitamins 10 ml/Chromium/ Copper/Manganese/ Seleni/Zn 1 ml/ Total Parenteral Nutrition/Amino Acids/ Dextrose/ Fat Emulsion Intravenous 1,512 ml @ 63 mls/hr TPN CONT IV Last administered on 12/23/17at 21:10; Start 12/23/17 at 22:00; Stop 12/24/17 at 21:59 ; Status DC Diphenhydramine HCl (Benadryl) 50 mg 1X ONCE IVP Last administered on at 17:33; Start 12/23/17 at 12:00; Stop 12/23/17 at 12:23; Status DC Albumin Human 1,500 ml @ 125 mls/hr 1X ONCE IV Last administered on at 17:34; Start 12/23/17 at 12:30; Stop 12/24/17 at 00:29; Status DC Heparin Sodium (Porcine) (Heparin Sodium) 10,000 unit STK-MED ONCE .ROUTE ; Start 12/23/17 at 14:57; Stop 12/23/17 at 14:58; Status DC Oxycodone/ Acetaminophen (Percocet 5/325) 1 tab PRN Q6HRS PRN PO PAIN; Start 12/23/17 at 20:45; Status Cancel Sodium Chloride 90 meq/Potassium Chloride 50 meq/ Potassium Phosphate 13.6 mmol/ Magnesium Sulfate 5 meq/ Calcium Gluconate 5 meq/ Multivitamins 10 ml/Chromium/ Copper/Manganese/ Seleni/Zn 1 ml/ Total Parenteral Nutrition/Amino Acids/ Dextrose/ Fat Emulsion Intravenous 1,512 ml @ 63 mls/hr TPN CONT IV Last administered on 12/24/17at 21:11; Start 12/24/17 at 22:00; Stop 12/25/17 at 21:59 ; Status DC Calcium Gluconate 2000 mg/Dextrose 120 ml @ 220 mls/hr 1X ONCE IV Last administered on 12/25/17at 09:51; Start 12/25/17 at 10:00; Stop 12/25/17 at 10:32 ; Status DC Diphenhydramine HCl (Benadryl) 50 mg 1X ONCE IVP Last administered on at 14:16; Start 12/25/17 at 09:30; Stop 12/25/17 at 09:31; Status DC Heparin Sodium (Porcine) (Heparin Sodium) 3,000 unit 1X ONCE IV Last administered on 12/25/17at 09:15; Start 12/25/17 at 09:15; Stop 12/25/17 at 09:16 ; Status DC Albumin Human 1,500 ml @ 0 mls/hr 1X ONCE IV Last administered on 12/25/17at 14:19; Start 12/25/17 at 10:45; Stop 12/25/17 at 10:46; Status DC Albumin Human 200 ml @ 0 mls/hr 1X ONCE IV ; Start 12/25/17 at 10:45; Stop 12/25/17 at 10:46; Status DC Heparin Sodium (Porcine) (Heparin Sodium) 10,000 unit STK-MED ONCE .ROUTE ; Start 12/25/17 at 12:39; Stop 12/25/17 at 12:40; Status DC Insulin Human Lispro (HumaLOG) 0-5 UNITS TIDWMEALS SQ Last administered on 12/29at 10:30; Start 12/25/17 at 17:00; Stop 12/29/17 at 11:33; Status DC Dextrose (Dextrose 50%-Water Syringe) 12.5 gm PRN Q15MIN PRN IV SEE COMMENTS; Start 12/25/17 at 13:30 Sodium Chloride 90 meq/Potassium Chloride 50 meq/ Potassium Phosphate 13.6 mmol/ Magnesium Sulfate 5 meq/ Calcium Gluconate 5 meq/ Multivitamins 10 ml/Chromium/ Copper/Manganese/ Seleni/Zn 1 ml/ Total Parenteral Nutrition/Amino Acids/ Dextrose/ Fat Emulsion Intravenous 1,512 ml @ 63 mls/hr TPN CONT IV Last administered on 12/25/17at 21:42; Start 12/25/17 at 22:00; Stop 12/26/17 at 21:59 ; Status DC Barium Sulfate (Varibar Thin Liquid Apple) 148 gm 1X ONCE PO Last administered on 12/26/17at 13:57; Start 12/26/17 at 12:00; Stop 12/26/17 at 12:01 ; Status DC Sodium Chloride 90 meq/Potassium Chloride 50 meq/ Potassium Phosphate 13.6 mmol/ Magnesium Sulfate 5 meq/ Calcium Gluconate 5 meq/ Multivitamins 10 ml/Chromium/ Copper/Manganese/ Seleni/Zn 1 ml/ Total Parenteral Nutrition/Amino Acids/ Dextrose/ Fat Emulsion Intravenous 1,512 ml @ 63 mls/hr TPN CONT IV Last administered on 12/26/17at 21:37; Start 12/26/17 at 22:00; Stop 12/27/17 at 21:59 ; Status DC Vitamin A/Vitamin D (Vitamin A & D Ointment) 1 lila PRN Q1HR PRN TP SKIN PROTECTION Last administered on 12/26/17at 17:42; Start 12/26/17 at 14:15 Pyridostigmine [place] (Regonol) 2.5 mg Q8H IV Last administered on 12/30/17at 00:18; Start 12/26/17 at 17:00; Stop 12/30/17 at 08:53; Status DC Calcium Gluconate 2000 mg/Dextrose 120 ml @ 220 mls/hr 1X ONCE IV ; Start 12/27/17 at 12:30; Stop 12/27/17 at 13:02; Status DC Sodium Chloride 90 meq/Potassium Chloride 50 meq/ Potassium Phosphate 13.6 mmol/ Magnesium Sulfate 5 meq/ Calcium Gluconate 5 meq/ Multivitamins 10 ml/Chromium/ Copper/Manganese/ Seleni/Zn 1 ml/ Total Parenteral Nutrition/Amino Acids/ Dextrose/ Fat Emulsion Intravenous 1,512 ml @ 63 mls/hr TPN CONT IV Last administered on 12/27/17at 23:26; Start 12/27/17 at 22:00; Stop 12/28/17 at 21:59 ; Status DC Albumin Human 1,500 ml @ 0 mls/hr 1X ONCE IV ; Start 12/27/17 at 15:00; Stop 12/27/17 at 15:01; Status DC Sodium Chloride 1,000 ml @ 1,000 mls/hr Q1H ONCE IV ; Start 12/27/17 at 14:30; Stop 12/27/17 at 15:29; Status DC Diphenhydramine HCl (Benadryl) 50 mg 1X ONCE IVP Last administered on at 16:43; Start 12/27/17 at 14:30; Stop 12/27/17 at 14:34; Status DC Heparin Sodium (Porcine) (Heparin Sodium) 10,000 unit STK-MED ONCE .ROUTE ; Start 12/27/17 at 14:42; Stop 12/27/17 at 14:43; Status DC Sodium Chloride 90 meq/Potassium Chloride 50 meq/ Potassium Phosphate 13.6 mmol/ Magnesium Sulfate 5 meq/ Calcium Gluconate 5 meq/ Multivitamins 10 ml/Chromium/ Copper/Manganese/ Seleni/Zn 1 ml/ Total Parenteral Nutrition/Amino Acids/ Dextrose/ Fat Emulsion Intravenous 1,512 ml @ 63 mls/hr TPN CONT IV Last administered on 12/28/17at 22:03; Start 12/28/17 at 22:00; Stop 12/29/17 at 21:59 ; Status DC Mirtazapine (Remeron) 15 mg QHS PO ; Start 12/29/17 at 21:00 Albumin Human 1,000 ml @ 0 mls/hr 1X ONCE IV ; Start 12/29/17 at 11:15; Stop 12/29/17 at 11:16; Status DC Calcium Gluconate (Calcium Gluconate) 1,000 mg 1X ONCE IV ; Start 12/29/17 at 11:15; Stop 12/29/17 at 11:16; Status DC Diphenhydramine HCl (Benadryl) 25 mg 1X ONCE IV ; Start 12/29/17 at 11:15; Stop 12/29/17 at 11:16; Status DC Insulin Human Lispro (HumaLOG) 0-5 UNITS Q6HRS SQ Last administered on at 00:00; Start 12/29/17 at 18:00 Sodium Chloride 90 meq/Potassium Chloride 50 meq/ Potassium Phosphate 13.6 mmol/ Magnesium Sulfate 5 meq/ Calcium Gluconate 5 meq/ Multivitamins 10 ml/Chromium/ Copper/Manganese/ Seleni/Zn 1 ml/ Total Parenteral Nutrition/Amino Acids/ Dextrose/ Fat Emulsion Intravenous 1,512 ml @ 63 mls/hr TPN CONT IV Last administered on 12/29/17at 21:58; Start 12/29/17 at 22:00; Stop 12/30/17 at 21:59 ; Status DC Diphenhydramine HCl (Benadryl) 25 mg PRN Q6HRS PRN IVP ITCHING Last administered on 12/30/17at 16:34; Start 12/29/17 at 21:30 Pyridostigmine [place] (Regonol) 2.5 mg Q6H IV Last administered on 01/02/18at 10:07; Start 12/30/17 at 13:00 Sodium Chloride 90 meq/Potassium Chloride 50 meq/ Potassium Phosphate 13.6 mmol/ Magnesium Sulfate 5 meq/ Calcium Gluconate 5 meq/ Multivitamins 10 ml/Chromium/ Copper/Manganese/ Seleni/Zn 1 ml/ Total Parenteral Nutrition/Amino Acids/ Dextrose/ Fat Emulsion Intravenous 1,512 ml @ 63 mls/hr TPN CONT IV Last administered on 12/30/17at 21:37; Start 12/30/17 at 22:00; Stop 12/31/17 at 21:59 ; Status DC Diphenhydramine HCl (Benadryl) 50 mg 1X ONCE IVP Last administered on at 15:03; Start 12/31/17 at 10:30; Stop 12/31/17 at 10:31; Status DC Calcium Gluconate (Calcium Gluconate) 2,000 mg 1X ONCE IVP ; Start 12/31/17 at 10:30; Stop 12/31/17 at 10:31; Status UNV Calcium Gluconate 2000 mg/Dextrose 120 ml @ 240 mls/hr 1X ONCE IV Last administered on 12/31/17at 11:18; Start 12/31/17 at 11:00; Stop 12/31/17 at 11:29 ; Status DC Albumin Human 1,500 ml @ 375 mls/hr 1X ONCE IV Last administered on at 15:03; Start 12/31/17 at 11:45; Stop 12/31/17 at 15:44; Status DC Albumin Human 100 ml @ 25 mls/hr 1X ONCE IV Last administered on 12/31/17at 15 :02; Start 12/31/17 at 12:00; Stop 12/31/17 at 15:59; Status DC Ondansetron HCl (Zofran) 4 mg PRN Q6HRS PRN IV NAUSEA/VOMITING; Start at 07:00; Stop 01/01/18 at 12:00; Status DC Fentanyl Citrate (Fentanyl 2ml Vial) 25 mcg PRN Q5MIN PRN IV MILD PAIN; Start 01/01/18 at 07:00; Stop 01/01/18 at 12:00; Status DC Fentanyl Citrate (Fentanyl 2ml Vial) 50 mcg PRN Q5MIN PRN IV MODERATE TO SEVERE PAIN; Start 01/01/18 at 07:00; Stop 01/01/18 at 12:00; Status DC Morphine Sulfate (Morphine Sulfate) 1 mg PRN Q10MIN PRN IV SEVERE PAIN; Start 01/01/18 at 07:00; Stop 01/01/18 at 12:00; Status DC Ringer's Solution 1,000 ml @ 30 mls/hr Q24H IV Last administered on at 08:17; Start 01/01/18 at 07:00; Stop 01/01/18 at 18:59; Status DC Lidocaine HCl (Xylocaine-Mpf 1% 2ml Vial) 2 ml PRN 1X PRN ID IV START; Start 01/01/18 at 07:00; Stop 01/01/18 at 12:00; Status DC Hydromorphone HCl (Dilaudid) 0.5 mg PRN Q10MIN PRN IV SEV PAIN, Second choice; Start 01/01/18 at 07:00; Stop 01/01/18 at 12:00; Status DC Prochlorperazine Edisylate (Compazine) 5 mg PACU PRN PRN IV NAUSEA, MRX1; Start 01/01/18 at 07:00; Stop 01/01/18 at 12:00; Status DC Heparin Sodium (Porcine) (Heparin Sodium) 10,000 unit STK-MED ONCE .ROUTE ; Start 12/31/17 at 13:58; Stop 12/31/17 at 13:59; Status DC Sodium Chloride 90 meq/Potassium Chloride 35 meq/ Potassium Phosphate 13.6 mmol/ Magnesium Sulfate 5 meq/ Calcium Gluconate 10 meq/ Multivitamins 10 ml/Chromium / Copper/Manganese/ Seleni/Zn 1 ml/ Total Parenteral Nutrition/Amino Acids/ Dextrose/ Fat Emulsion Intravenous 1,512 ml @ 63 mls/hr TPN CONT IV Last administered on 12/31/17at 21:58; Start 12/31/17 at 22:00; Stop 01/01/18 at 21: 59; Status DC Cefazolin Sodium 50 ml @ 100 mls/hr 1X PREOP PRN IV PER PROTOCOL Last administered on 01/01/18at 08:41; Start 01/01/18 at 11:00; Stop 01/01/18 at 12 :00; Status DC Midazolam HCl (Versed) 2 mg PRN 1X PRN IV PRIOR TO PROCEDURE; Start 01/01/18 at 08:15; Stop 01/01/18 at 12:00; Status DC Fentanyl Citrate (Fentanyl 2ml Vial) 25 mcg PRN Q5MIN PRN IV X 2 DOSES FOR PAIN ; Start 01/01/18 at 08:15; Stop 01/01/18 at 18:00; Status Cancel Fentanyl Citrate (Fentanyl 2ml Vial) 50 mcg PRN Q5MIN PRN IV X 2 DOSES FOR PAIN ; Start 01/01/18 at 08:15; Stop 01/01/18 at 18:00; Status Cancel Ringer's Solution 1,000 ml @ 125 mls/hr Q8H IV ; Start 01/01/18 at 08:02; Stop 01/01/18 at 12:00; Status DC Lidocaine HCl (Xylocaine-Mpf 1% 2ml Vial) 2 ml 1X PRN PRN ID IV START; Start 01/01/18 at 08:15; Stop 01/01/18 at 18:00; Status Cancel Cefazolin Sodium 50 ml @ As Directed STK-MED ONCE IV ; Start 01/01/18 at 08:19 ; Stop 01/01/18 at 08:20; Status DC Sodium Chloride 90 meq/Potassium Chloride 35 meq/ Potassium Phosphate 13.6 mmol/ Magnesium Sulfate 5 meq/ Calcium Gluconate 10 meq/ Multivitamins 10 ml/Chromium / Copper/Manganese/ Seleni/Zn 1 ml/ Total Parenteral Nutrition/Amino Acids/ Dextrose/ Fat Emulsion Intravenous 1,512 ml @ 63 mls/hr TPN CONT IV ; Start 01/01/18 at 22:00; Stop 01/02/18 at 21:59 Active Scripts Active Reported Amoxicillin 875 Mg Tablet 1 Tab PO BID Levothyroxine Sodium 25 Mcg Tablet 1 Tab PO DAILY Proair Hfa Inhaler (Albuterol Sulfate) 8.5 Gm Hfa.aer.ad 1 Puff INH PRN Q6HRS PRN [kaitlib fe] Hydrocodone-Apap 7.5-325/15 Soln (Hydrocodone Bit/Acetaminophen) 15 Ml Solution 15 Ml PO PRN Q4HRS PRN Prednisone 50 Mg Tablet 1 Tab PO DAILY Fluticasone Propionate Nasal [place] (Fluticasone Propionate) 16 Gm [place].susp 1 [place] NS DAILY [zoloft] [ativan] Vitals/I & O Vital Sign - Last 24 Hours 01/01/18 01/01/18 01/01/18 01/01/18 12:19 14:13 15:00 15:50 Temp 97.6 97.6 Pulse 76 Resp 18 17 18 17 B/P (MAP) 117/76 (90) Pulse Ox 98 O2 Delivery Room Air Room Air Room Air Room Air 01/01/18 01/01/18 01/01/18 01/01/18 18:14 19:00 20:00 22:33 Temp 97.5 97.5 Pulse 65 Resp 18 18 B/P (MAP) 127/76 (93) Pulse Ox 98 98 98 O2 Delivery Room Air Room Air Room Air Room Air O2 Flow Rate 2.0 01/01/18 01/02/18 01/02/18 01/02/18 23:00 01:46 03:00 04:19 Temp 97.9 97.5 97.9 97.5 Pulse 68 110 Resp 18 18 18 18 B/P (MAP) 119/78 (92) 128/76 (93) Pulse Ox 96 98 97 98 O2 Delivery Room Air Room Air Room Air Room Air O2 Flow Rate 2.0 01/02/18 01/02/18 01/02/18 01/02/18 06:12 06:42 07:00 08:00 Temp 97.3 97.3 Pulse 84 Resp 11 14 17 B/P (MAP) 120/73 (89) Pulse Ox 98 96 O2 Delivery Room Air Room Air Room Air O2 Flow Rate 2.0 2.0 01/02/18 01/02/18 08:30 09:00 Pulse Ox 98 98 O2 Delivery Room Air Room Air O2 Flow Rate 2.0 2.0 Intake and Output 01/01/18 01/01/18 01/02/18 15:00 23:00 07:00 Intake Total 60 ml 0 ml Balance 60 ml 0 ml BARTOLO OHARA MD Jan 02, 2018 12:02
[2018-01-02] MEDS ORDERED: CALCIUM CHLORIDE 1,000 MG in IV NORMAL SALINE 50ML 50 ML IV ONE (12:45)
[2018-01-02 13:18] LABS: HEMATOCRIT 36.6 % (36.0-47.0); HEMOGLOBIN 12.4 g/dL (12.0-15.5); RED BLOOD COUNT 4.36 x10^6/uL (3.50-5.40); RED CELL DISTRIBUTION WIDTH 12.5 % (11.5-14.5); WHITE BLOOD COUNT 18.8 x10^3/uL (4.0-11.0)
[2018-01-02 13:30] LABS: PROTHROMBIN TIME PATIENT 13.2 SEC (11.7-14.0)
[2018-01-02 15:00] VITALS: BP 117/63
[2018-01-02] MEDS ORDERED: ACETAMINOPHEN 325 MG TABLET. PO ONE (15:00)
--- NOTE | 2018-01-02 15:20 | PDOC ---
PROGRESS NOTES Assessment Problems Medical Problems: (1) Diplopia Status: Acute (2) Marijuana abuse Status: Acute (3) Myasthenia gravis with acute exacerbation Status: Acute (4) Neck muscle weakness Status: Acute (5) RUE weakness Status: Acute (6) Sinusitis Status: Acute Myasthenia gravis, on steroids and 4 plasmaphereses Myasthenia serology is positive Chest CT negative for thymoma Also has Eze's thyroiditis Also has anxiety disorder Also has elevated transaminases and positive Hepatitis B surface anybody Brain MRI negative Plan Speech therapy, PT, OT PEG feedings Monitor negative inspiratory force Plasmapheresis on hold, may resume in 2 weeks Change to steroids per PEG Change to pyridostigmine to q6h per PEG Now planning to go home with home health. Then return to my office in 2 weeks for decision as to whether to readmit for more plasma exchange Subjective Wants to go home with home health Objective Vital Signs Date Time Temp Pulse Resp B/P (MAP) Pulse Ox O2 Delivery O2 Flow Rate FiO2 01/02/18 14:55 Room Air 01/02/18 12:35 98 2.0 01/02/18 07:00 97.3 84 17 120/73 (89) 97.3 Intake and Output 01/02/18 07:00 Intake Total 60 ml Balance 60 ml Intake Oral 60 ml # Voids 4 PHYSICAL EXAM Alert. Oriented to time, place and person. PERRL. EOMI. CN: no focal findings. no diplopia. Voice is strong, but still somewhat hypernasal Muscle tone: normal. Muscle strength: 5/5, 5-/5 right arm, 5-/5 neck extension weakness DTR: 2+ Plantar reflex: Flexor Gait: not examined in bed. Sensory exam: no abnormal findings. No cerebellar signs elicited. Review of Relevant I have reviewed the following items maliha (where applicable) has been applied. Labs Laboratory Tests Test 12/31/17 17:41 01/01/18 00:08 01/01/18 06:02 01/01/18 06:15 Glucose (Fingerstick) 173 mg/dL (70-99) 169 mg/dL (70-99) 195 mg/dL (70-99) Sodium Level 140 mmol/L (136-145) Potassium Level 4.2 mmol/L (3.5-5.1) Chloride Level 104 mmol/L (98-107) Carbon Dioxide Level 32 mmol/L (21-32) Anion Gap 4 (6-14) Blood Urea Nitrogen 17 mg/dL (7-20) Creatinine 0.5 mg/dL (0.6-1.0) Estimated GFR (Cockcroft-Gault) 152.9 BUN/Creatinine Ratio 34 (6-20) Glucose Level 189 mg/dL (70-99) Calcium Level 8.2 mg/dL (8.5-10.1) Total Bilirubin 0.5 mg/dL (0.2-1.0) Aspartate Amino Transf (AST/SGOT) 43 U/L (15-37) Alanine Aminotransferase (ALT/SGPT) 161 U/L (14-59) Alkaline Phosphatase 31 U/L (46-116) Total Protein 5.0 g/dL (6.4-8.2) Albumin 3.3 g/dL (3.4-5.0) Albumin/Globulin Ratio 1.9 (1.0-1.7) Test 01/01/18 14:23 01/01/18 20:36 01/02/18 01:39 01/02/18 04:30 Glucose (Fingerstick) 196 mg/dL (70-99) 128 mg/dL (70-99) 179 mg/dL (70-99) White Blood Count 15.6 x10^3/uL (4.0-11.0) Red Blood Count 4.29 x10^6/uL (3.50-5.40) Hemoglobin 12.1 g/dL (12.0-15.5) Hematocrit 36.5 % (36.0-47.0) Mean Corpuscular Volume 85 fL (79-100) Mean Corpuscular Hemoglobin 28 pg (25-35) Mean Corpuscular Hemoglobin Concent 33 g/dL (31-37) Red Cell Distribution Width 12.5 % (11.5-14.5) Platelet Count 124 x10^3/uL (140-400) Neutrophils (%) (Auto) 88 % (31-73) Lymphocytes (%) (Auto) 6 % (24-48) Monocytes (%) (Auto) 6 % (0-9) Eosinophils (%) (Auto) 0 % (0-3) Basophils (%) (Auto) 0 % (0-3) Neutrophils # (Auto) 13.7 x10^3uL (1.8-7.7) Lymphocytes # (Auto) 0.9 x10^3/uL (1.0-4.8) Monocytes # (Auto) 1.0 x10^3/uL (0.0-1.1) Eosinophils # (Auto) 0.0 x10^3/uL (0.0-0.7) Basophils # (Auto) 0.0 x10^3/uL (0.0-0.2) Sodium Level 139 mmol/L (136-145) Potassium Level 4.4 mmol/L (3.5-5.1) Chloride Level 101 mmol/L (98-107) Carbon Dioxide Level 30 mmol/L (21-32) Anion Gap 8 (6-14) Blood Urea Nitrogen 21 mg/dL (7-20) Creatinine 0.6 mg/dL (0.6-1.0) Estimated GFR (Cockcroft-Gault) 123.9 BUN/Creatinine Ratio 35 (6-20) Glucose Level 209 mg/dL (70-99) Calcium Level 8.6 mg/dL (8.5-10.1) Phosphorus Level 4.7 mg/dL (2.6-4.7) Magnesium Level 2.3 mg/dL (1.8-2.4) Total Bilirubin 0.5 mg/dL (0.2-1.0) Aspartate Amino Transf (AST/SGOT) 31 U/L (15-37) Alanine Aminotransferase (ALT/SGPT) 149 U/L (14-59) Alkaline Phosphatase 39 U/L (46-116) Total Protein 5.6 g/dL (6.4-8.2) Albumin 3.6 g/dL (3.4-5.0) Albumin/Globulin Ratio 1.8 (1.0-1.7) Triglycerides Level 163 mg/dL (0-150) Test 01/02/18 06:08 01/02/18 11:58 01/02/18 13:00 Glucose (Fingerstick) 160 mg/dL (70-99) 185 mg/dL (70-99) White Blood Count 18.8 x10^3/uL (4.0-11.0) Red Blood Count 4.36 x10^6/uL (3.50-5.40) Hemoglobin 12.4 g/dL (12.0-15.5) Hematocrit 36.6 % (36.0-47.0) Mean Corpuscular Volume 84 fL (79-100) Mean Corpuscular Hemoglobin 28 pg (25-35) Mean Corpuscular Hemoglobin Concent 34 g/dL (31-37) Red Cell Distribution Width 12.5 % (11.5-14.5) Platelet Count 145 x10^3/uL (140-400) Prothrombin Time 13.2 SEC (11.7-14.0) Prothromb Time International Ratio 1.1 (0.8-1.1) Activated Partial Thromboplast Time 25 SEC (24-38) Fibrinogen 202 mg/dL (200-440) Laboratory Tests Test 01/01/18 20:36 01/02/18 01:39 01/02/18 04:30 01/02/18 06:08 Glucose (Fingerstick) 128 mg/dL (70-99) 179 mg/dL (70-99) 160 mg/dL (70-99) White Blood Count 15.6 x10^3/uL (4.0-11.0) Red Blood Count 4.29 x10^6/uL (3.50-5.40) Hemoglobin 12.1 g/dL (12.0-15.5) Hematocrit 36.5 % (36.0-47.0) Mean Corpuscular Volume 85 fL (79-100) Mean Corpuscular Hemoglobin 28 pg (25-35) Mean Corpuscular Hemoglobin Concent 33 g/dL (31-37) Red Cell Distribution Width 12.5 % (11.5-14.5) Platelet Count 124 x10^3/uL (140-400) Neutrophils (%) (Auto) 88 % (31-73) Lymphocytes (%) (Auto) 6 % (24-48) Monocytes (%) (Auto) 6 % (0-9) Eosinophils (%) (Auto) 0 % (0-3) Basophils (%) (Auto) 0 % (0-3) Neutrophils # (Auto) 13.7 x10^3uL (1.8-7.7) Lymphocytes # (Auto) 0.9 x10^3/uL (1.0-4.8) Monocytes # (Auto) 1.0 x10^3/uL (0.0-1.1) Eosinophils # (Auto) 0.0 x10^3/uL (0.0-0.7) Basophils # (Auto) 0.0 x10^3/uL (0.0-0.2) Sodium Level 139 mmol/L (136-145) Potassium Level 4.4 mmol/L (3.5-5.1) Chloride Level 101 mmol/L (98-107) Carbon Dioxide Level 30 mmol/L (21-32) Anion Gap 8 (6-14) Blood Urea Nitrogen 21 mg/dL (7-20) Creatinine 0.6 mg/dL (0.6-1.0) Estimated GFR (Cockcroft-Gault) 123.9 BUN/Creatinine Ratio 35 (6-20) Glucose Level 209 mg/dL (70-99) Calcium Level 8.6 mg/dL (8.5-10.1) Phosphorus Level 4.7 mg/dL (2.6-4.7) Magnesium Level 2.3 mg/dL (1.8-2.4) Total Bilirubin 0.5 mg/dL (0.2-1.0) Aspartate Amino Transf (AST/SGOT) 31 U/L (15-37) Alanine Aminotransferase (ALT/SGPT) 149 U/L (14-59) Alkaline Phosphatase 39 U/L (46-116) Total Protein 5.6 g/dL (6.4-8.2) Albumin 3.6 g/dL (3.4-5.0) Albumin/Globulin Ratio 1.8 (1.0-1.7) Triglycerides Level 163 mg/dL (0-150) Test 01/02/18 11:58 01/02/18 13:00 Glucose (Fingerstick) 185 mg/dL (70-99) White Blood Count 18.8 x10^3/uL (4.0-11.0) Red Blood Count 4.36 x10^6/uL (3.50-5.40) Hemoglobin 12.4 g/dL (12.0-15.5) Hematocrit 36.6 % (36.0-47.0) Mean Corpuscular Volume 84 fL (79-100) Mean Corpuscular Hemoglobin 28 pg (25-35) Mean Corpuscular Hemoglobin Concent 34 g/dL (31-37) Red Cell Distribution Width 12.5 % (11.5-14.5) Platelet Count 145 x10^3/uL (140-400) Prothrombin Time 13.2 SEC (11.7-14.0) Prothromb Time International Ratio 1.1 (0.8-1.1) Activated Partial Thromboplast Time 25 SEC (24-38) Fibrinogen 202 mg/dL (200-440) Medications Current Medications Meclizine HCl (Antivert) 25 mg 1X ONCE PO Last administered on 12/17/17at 20:00 ; Start 12/17/17 at 20:00; Stop 12/17/17 at 20:01; Status DC Sodium Chloride 1,000 ml @ 1,000 mls/hr 1X ONCE IV Last administered on at 20:35; Start 12/17/17 at 20:15; Stop 12/17/17 at 21:14; Status DC Ketorolac Tromethamine (Toradol 15mg Vial) 15 mg 1X ONCE IV Last administered on 12/17/17at 20:36; Start 12/17/17 at 20:15; Stop 12/17/17 at 20:16; Status DC Diphenhydramine HCl (Benadryl) 25 mg 1X ONCE PO Last administered on at 02:16; Start 12/18/17 at 02:15; Stop 12/18/17 at 02:18; Status DC Acetaminophen (Tylenol) 500 mg PRN Q6HRS PRN PO MILD PAIN / TEMP; Start at 09:00 Acetaminophen/ Codeine Phosphate (Tylenol #3) 1 tab PRN Q6HRS PRN PO PAIN; Start 12/18/17 at 09:00; Stop 12/18/17 at 12:08; Status DC Ibuprofen (Motrin) 600 mg PRN Q6HRS PRN PO INFLAMMATION; Start 12/18/17 at 09: 00; Stop 12/19/17 at 16:23; Status DC Ondansetron HCl (Zofran) 4 mg PRN Q6HRS PRN IV NAUSEA/VOMITING Last administered on 01/02/18at 08:30; Start 12/18/17 at 09:00 Ondansetron HCl (Zofran Odt) 4 mg PRN Q6HRS PRN PO NAUSEA/VOMITING; Start 12/18 at 09:00; Stop 12/18/17 at 12:08; Status DC Fluticasone Propionate (Flonase) 1 spray DAILY NS Last administered on at 10:10; Start 12/18/17 at 09:00 Acetaminophen/ Hydrocodone Bitart (Lortab 7.5-325/ 15ml Oral Solution) 15 ml PRN Q4HRS PRN PO MODERATE PAIN; Start 12/18/17 at 09:00; Stop 12/19/17 at 16:23 ; Status DC Non-Formulary Medication (Albuterol Sulfate (Proair Hfa Inhaler)) 1 puff PRN Q6HRS PRN INH SHORTNESS OF BREATH; Start 12/18/17 at 09:00; Status UNV Amoxicillin (Amoxil) 750 mg BID PO Last administered on 12/18/17at 21:02; Start 12/18/17 at 10:00; Stop 12/19/17 at 16:23; Status DC Levothyroxine Sodium (Synthroid) 25 mcg DAILY07 PO ; Start 12/18/17 at 10:30; Stop 12/18/17 at 12:08; Status DC Prednisone (Prednisone) 50 mg DAILY PO ; Start 12/18/17 at 10:00; Stop 12/18/17 at 12:08; Status DC Alprazolam (Xanax) 0.25 mg PRN Q8HRS PRN PO ANXIETY / AGITATION; Start at 09:00; Stop 12/19/17 at 08:14; Status DC Zolpidem Tartrate (Ambien) 5 mg PRN QHS PRN PO INSOMNIA; Start 12/18/17 at 09: 00; Stop 12/18/17 at 12:08; Status DC Cetirizine HCl (ZyrTEC) 10 mg DAILY PO ; Start 12/18/17 at 10:00; Stop 12/18/17 at 12:08; Status DC Non-Formulary Medication 1 ea 1X ONCE IV ; Start 12/18/17 at 09:00; Stop at 09:01; Status UNV Potassium Chloride/Dextrose/ Sod Cl 1,000 ml @ 80 mls/hr [id number] IV Last administered on 12/19/17at 10:00; Start 12/18/17 at 09:00; Stop 12/20/17 at 09:07 ; Status DC Albuterol Sulfate (Ventolin Neb Soln) 2.5 mg PRN Q6HRS PRN NEB SHORTNESS OF BREATH Last administered on 12/27/17at 19:26; Start 12/18/17 at 09:30 Iohexol (Omnipaque 300 Mg/ml) 75 ml 1X ONCE IV Last administered on 12/18/17at 10:31; Start 12/18/17 at 10:15; Stop 12/18/17 at 10:16; Status DC Info (CONTRAST GIVEN -- Rx MONITORING) 1 each PRN DAILY PRN MC SEE COMMENTS; Start 12/18/17 at 10:15; Stop 12/20/17 at 10:14; Status DC Levothyroxine Sodium 15 mcg/ Sodium Chloride 5 ml @ 100 mls/hr DAILY IVP Last administered on 12/20/17at 09:41; Start 12/18/17 at 12:30; Stop 12/20/17 at 11:44 ; Status DC Lorazepam (Ativan) 1 mg PRN Q4HRS PRN IV ANXIETY / AGITATION Last administered on 01/02/18at 12:35; Start 12/18/17 at 13:15 Alprazolam (Xanax) 0.25 mg PRN Q8HRS PRN NG ANXIETY / AGITATION Last administered on 12/19/17at 01:13; Start 12/18/17 at 13:15; Stop 12/19/17 at 16:23 ; Status DC Pyridostigmine [place] (Mestinon) 60 mg BID NG Last administered on 12/18/17at 21:01; Start 12/18/17 at 13:00; Stop 12/19/17 at 16:23; Status DC Prednisone (Prednisone) 50 mg DAILY PO Last administered on 12/18/17at 16:03; Start 12/18/17 at 13:00; Stop 12/19/17 at 16:23; Status DC Famotidine (Pepcid) 20 mg QHS PO Last administered on 12/18/17at 21:01; Start at 21:00; Stop 12/19/17 at 16:23; Status DC Calcium Carbonate/ Glycine (Oscal) 500 mg TIDAFTMEAL PO ; Start 12/18/17 at 18: 00; Stop 12/19/17 at 16:23; Status DC Ergocalciferol (Vitamin D2) 50,000 unit MoTh PO ; Start 12/19/17 at 09:00; Stop 12/19/17 at 16:23; Status DC Lidocaine/Sodium Bicarbonate (Buffered Lidocaine 1%) 3 ml STK-MED ONCE .ROUTE ; Start 12/18/17 at 14:32; Stop 12/18/17 at 14:33; Status DC Heparin Sodium (Porcine) (Heparin Sodium) 10,000 unit STK-MED ONCE .ROUTE ; Start 12/18/17 at 14:32; Stop 12/18/17 at 14:33; Status DC Lidocaine/Sodium Bicarbonate (Buffered Lidocaine 1%) 3 ml 1X ONCE INJ Last administered on 12/18/17at 15:15; Start 12/18/17 at 15:15; Stop 12/18/17 at 15:16 ; Status DC Heparin Sodium (Porcine) (Heparin Sodium) 2,200 unit 1X ONCE INT CAT Last administered on 12/18/17at 15:15; Start 12/18/17 at 15:15; Stop 12/18/17 at 15:16 ; Status DC Scopolamine (Transderm-Scop) 1 patch 1X ONCE TD Last administered on at 21:41; Start 12/18/17 at 21:30; Stop 12/19/17 at 16:23; Status DC Albumin Human 1,500 ml @ 0 mls/hr 1X ONCE IV Last administered on 12/19/17at 11:38; Start 12/19/17 at 08:15; Stop 12/19/17 at 08:16; Status DC Heparin Sodium (Porcine) (Heparin Sodium) 10,000 unit STK-MED ONCE .ROUTE ; Start 12/19/17 at 08:40; Stop 12/19/17 at 08:41; Status DC Info (Tpn Per Pharmacy) 1 each PRN DAILY PRN MC SEE COMMENTS Last administered on 01/01/18at 11:31; Start 12/20/17 at 16:30; Stop 01/02/18 at 22:00 Pyridostigmine [place] (Regonol) 2.5 mg Q12HR IV Last administered on at 09:56; Start 12/19/17 at 21:00; Stop 12/26/17 at 15:52; Status DC Methylprednisolone Sodium Succinate (SOLU-Medrol 40MG VIAL) 40 mg Q12HR IV Last administered on 01/02/18at 08:31; Start 12/19/17 at 21:00 Famotidine (Pepcid Vial) 20 mg QHS IVP Last administered on 12/19/17at 21:33; Start 12/19/17 at 21:00; Stop 12/20/17 at 11:44; Status DC Morphine Sulfate (Morphine Sulfate) 2 mg PRN Q2HR PRN IV MODERATE TO SEVERE PAIN Last administered on 01/02/18at 14:52; Start 12/19/17 at 23:15 Amino Acids/ Glycerin/ Electrolytes 1,000 ml @ 80 mls/hr [id number] IV Last administered on 12/20/17at 09:57; Start 12/20/17 at 09:30; Stop 12/20/17 at 11:44 ; Status DC Alteplase, Recombinant (Cathflo) 2 mg 1X ONCE IV Last administered on at 12:37; Start 12/20/17 at 11:45; Stop 12/20/17 at 11:46; Status DC Cyclobenzaprine HCl (Flexeril) 5 mg QID PO Last administered on 12/21/17at 09:10 ; Start 12/20/17 at 17:00; Stop 12/29/17 at 11:33; Status DC Cyclobenzaprine HCl (Flexeril) 10 mg 1X ONCE PO ; Start 12/20/17 at 11:45; Stop 12/20/17 at 11:53; Status DC Levothyroxine Sodium (Synthroid) 25 mcg DAILY07 PO ; Start 12/21/17 at 07:00; Stop 12/21/17 at 07:00; Status DC Levothyroxine Sodium 12.5 mcg/ Sodium Chloride 5 ml @ 100 mls/hr DAILY IVP Last administered on 01/02/18at 10:07; Start 12/21/17 at 09:00 Sodium Chloride 90 meq/Potassium Chloride 50 meq/ Potassium Phosphate 13.6 mmol/ Magnesium Sulfate 5 meq/ Calcium Gluconate 5 meq/ Multivitamins 10 ml/Chromium/ Copper/Manganese/ Seleni/Zn 1 ml/ Total Parenteral Nutrition/Amino Acids/ Dextrose/ Fat Emulsion Intravenous 1,512 ml @ 63 mls/hr TPN CONT IV Last administered on 12/20/17at 20:58; Start 12/20/17 at 22:00; Stop 12/21/17 at 21:59 ; Status DC Albumin Human 1,200 ml @ 0 mls/hr 1X ONCE IV Last administered on 12/21/17at 10:40; Start 12/21/17 at 08:45; Stop 12/21/17 at 08:46; Status DC Heparin Sodium (Porcine) (Heparin Sodium) 10,000 unit STK-MED ONCE .ROUTE ; Start 12/21/17 at 08:50; Stop 12/21/17 at 08:51; Status DC Diphenhydramine HCl (Benadryl) 50 mg STK-MED ONCE .ROUTE ; Start 12/21/17 at 11: 46; Stop 12/21/17 at 11:47; Status DC Diphenhydramine HCl (Benadryl) 50 mg 1X ONCE IVP Last administered on at 11:59; Start 12/21/17 at 12:00; Stop 12/21/17 at 12:01; Status DC Sodium Chloride 90 meq/Potassium Chloride 50 meq/ Potassium Phosphate 13.6 mmol/ Magnesium Sulfate 5 meq/ Calcium Gluconate 5 meq/ Multivitamins 10 ml/Chromium/ Copper/Manganese/ Seleni/Zn 1 ml/ Total Parenteral Nutrition/Amino Acids/ Dextrose/ Fat Emulsion Intravenous 1,512 ml @ 63 mls/hr TPN CONT IV Last administered on 12/21/17at 22:00; Start 12/21/17 at 22:00; Stop 12/22/17 at 21:59 ; Status DC Sodium Chloride 90 meq/Potassium Chloride 50 meq/ Potassium Phosphate 13.6 mmol/ Magnesium Sulfate 5 meq/ Calcium Gluconate 5 meq/ Multivitamins 10 ml/Chromium/ Copper/Manganese/ Seleni/Zn 1 ml/ Total Parenteral Nutrition/Amino Acids/ Dextrose/ Fat Emulsion Intravenous 1,512 ml @ 63 mls/hr TPN CONT IV Last administered on 12/22/17at 21:26; Start 12/22/17 at 22:00; Stop 12/23/17 at 21:59 ; Status DC Famotidine (Pepcid Vial) 20 mg QHS IVP Last administered on 01/01/18at 20:46; Start 12/23/17 at 21:00 Sodium Chloride 90 meq/Potassium Chloride 50 meq/ Potassium Phosphate 13.6 mmol/ Magnesium Sulfate 5 meq/ Calcium Gluconate 5 meq/ Multivitamins 10 ml/Chromium/ Copper/Manganese/ Seleni/Zn 1 ml/ Total Parenteral Nutrition/Amino Acids/ Dextrose/ Fat Emulsion Intravenous 1,512 ml @ 63 mls/hr TPN CONT IV Last administered on 12/23/17at 21:10; Start 12/23/17 at 22:00; Stop 12/24/17 at 21:59 ; Status DC Diphenhydramine HCl (Benadryl) 50 mg 1X ONCE IVP Last administered on at 17:33; Start 12/23/17 at 12:00; Stop 12/23/17 at 12:23; Status DC Albumin Human 1,500 ml @ 125 mls/hr 1X ONCE IV Last administered on at 17:34; Start 12/23/17 at 12:30; Stop 12/24/17 at 00:29; Status DC Heparin Sodium (Porcine) (Heparin Sodium) 10,000 unit AWAK ONCE .ROUTE ; Start 12/23/17 at 14:57; Stop 12/23/17 at 14:58; Status DC Oxycodone/ Acetaminophen (Percocet 5/325) 1 tab PRN Q6HRS PRN PO PAIN; Start 12/23/17 at 20:45; Status Cancel Sodium Chloride 90 meq/Potassium Chloride 50 meq/ Potassium Phosphate 13.6 mmol/ Magnesium Sulfate 5 meq/ Calcium Gluconate 5 meq/ Multivitamins 10 ml/Chromium/ Copper/Manganese/ Seleni/Zn 1 ml/ Total Parenteral Nutrition/Amino Acids/ Dextrose/ Fat Emulsion Intravenous 1,512 ml @ 63 mls/hr TPN CONT IV Last administered on 12/24/17at 21:11; Start 12/24/17 at 22:00; Stop 12/25/17 at 21:59 ; Status DC Calcium Gluconate 2000 mg/Dextrose 120 ml @ 220 mls/hr 1X ONCE IV Last administered on 12/25/17at 09:51; Start 12/25/17 at 10:00; Stop 12/25/17 at 10:32 ; Status DC Diphenhydramine HCl (Benadryl) 50 mg 1X ONCE IVP Last administered on at 14:16; Start 12/25/17 at 09:30; Stop 12/25/17 at 09:31; Status DC Heparin Sodium (Porcine) (Heparin Sodium) 3,000 unit 1X ONCE IV Last administered on 12/25/17at 09:15; Start 12/25/17 at 09:15; Stop 12/25/17 at 09:16 ; Status DC Albumin Human 1,500 ml @ 0 mls/hr 1X ONCE IV Last administered on 12/25/17at 14:19; Start 12/25/17 at 10:45; Stop 12/25/17 at 10:46; Status DC Albumin Human 200 ml @ 0 mls/hr 1X ONCE IV ; Start 12/25/17 at 10:45; Stop 12/25/17 at 10:46; Status DC Heparin Sodium (Porcine) (Heparin Sodium) 10,000 unit STK-MED ONCE .ROUTE ; Start 12/25/17 at 12:39; Stop 12/25/17 at 12:40; Status DC Insulin Human Lispro (HumaLOG) 0-5 UNITS TIDWMEALS SQ Last administered on 12/29at 10:30; Start 12/25/17 at 17:00; Stop 12/29/17 at 11:33; Status DC Dextrose (Dextrose 50%-Water Syringe) 12.5 gm PRN Q15MIN PRN IV SEE COMMENTS; Start 12/25/17 at 13:30 Sodium Chloride 90 meq/Potassium Chloride 50 meq/ Potassium Phosphate 13.6 mmol/ Magnesium Sulfate 5 meq/ Calcium Gluconate 5 meq/ Multivitamins 10 ml/Chromium/ Copper/Manganese/ Seleni/Zn 1 ml/ Total Parenteral Nutrition/Amino Acids/ Dextrose/ Fat Emulsion Intravenous 1,512 ml @ 63 mls/hr TPN CONT IV Last administered on 12/25/17at 21:42; Start 12/25/17 at 22:00; Stop 12/26/17 at 21:59 ; Status DC Barium Sulfate (Varibar Thin Liquid Apple) 148 gm 1X ONCE PO Last administered on 12/26/17at 13:57; Start 12/26/17 at 12:00; Stop 12/26/17 at 12:01 ; Status DC Sodium Chloride 90 meq/Potassium Chloride 50 meq/ Potassium Phosphate 13.6 mmol/ Magnesium Sulfate 5 meq/ Calcium Gluconate 5 meq/ Multivitamins 10 ml/Chromium/ Copper/Manganese/ Seleni/Zn 1 ml/ Total Parenteral Nutrition/Amino Acids/ Dextrose/ Fat Emulsion Intravenous 1,512 ml @ 63 mls/hr TPN CONT IV Last administered on 12/26/17at 21:37; Start 12/26/17 at 22:00; Stop 12/27/17 at 21:59 ; Status DC Vitamin A/Vitamin D (Vitamin A & D Ointment) 1 lila PRN Q1HR PRN TP SKIN PROTECTION Last administered on 12/26/17at 17:42; Start 12/26/17 at 14:15 Pyridostigmine [place] (Regonol) 2.5 mg Q8H IV Last administered on 12/30/17at 00:18; Start 12/26/17 at 17:00; Stop 12/30/17 at 08:53; Status DC Calcium Gluconate 2000 mg/Dextrose 120 ml @ 220 mls/hr 1X ONCE IV ; Start 12/27/17 at 12:30; Stop 12/27/17 at 13:02; Status DC Sodium Chloride 90 meq/Potassium Chloride 50 meq/ Potassium Phosphate 13.6 mmol/ Magnesium Sulfate 5 meq/ Calcium Gluconate 5 meq/ Multivitamins 10 ml/Chromium/ Copper/Manganese/ Seleni/Zn 1 ml/ Total Parenteral Nutrition/Amino Acids/ Dextrose/ Fat Emulsion Intravenous 1,512 ml @ 63 mls/hr TPN CONT IV Last administered on 12/27/17at 23:26; Start 12/27/17 at 22:00; Stop 12/28/17 at 21:59 ; Status DC Albumin Human 1,500 ml @ 0 mls/hr 1X ONCE IV ; Start 12/27/17 at 15:00; Stop 12/27/17 at 15:01; Status DC Sodium Chloride 1,000 ml @ 1,000 mls/hr Q1H ONCE IV ; Start 12/27/17 at 14:30; Stop 12/27/17 at 15:29; Status DC Diphenhydramine HCl (Benadryl) 50 mg 1X ONCE IVP Last administered on at 16:43; Start 12/27/17 at 14:30; Stop 12/27/17 at 14:34; Status DC Heparin Sodium (Porcine) (Heparin Sodium) 10,000 unit STK-MED ONCE .ROUTE ; Start 12/27/17 at 14:42; Stop 12/27/17 at 14:43; Status DC Sodium Chloride 90 meq/Potassium Chloride 50 meq/ Potassium Phosphate 13.6 mmol/ Magnesium Sulfate 5 meq/ Calcium Gluconate 5 meq/ Multivitamins 10 ml/Chromium/ Copper/Manganese/ Seleni/Zn 1 ml/ Total Parenteral Nutrition/Amino Acids/ Dextrose/ Fat Emulsion Intravenous 1,512 ml @ 63 mls/hr TPN CONT IV Last administered on 12/28/17at 22:03; Start 12/28/17 at 22:00; Stop 12/29/17 at 21:59 ; Status DC Mirtazapine (Remeron) 15 mg QHS PO ; Start 12/29/17 at 21:00 Albumin Human 1,000 ml @ 0 mls/hr 1X ONCE IV ; Start 12/29/17 at 11:15; Stop 12/29/17 at 11:16; Status DC Calcium Gluconate (Calcium Gluconate) 1,000 mg 1X ONCE IV ; Start 12/29/17 at 11:15; Stop 12/29/17 at 11:16; Status DC Diphenhydramine HCl (Benadryl) 25 mg 1X ONCE IV ; Start 12/29/17 at 11:15; Stop 12/29/17 at 11:16; Status DC Insulin Human Lispro (HumaLOG) 0-5 UNITS Q6HRS SQ Last administered on at 12:34; Start 12/29/17 at 18:00 Sodium Chloride 90 meq/Potassium Chloride 50 meq/ Potassium Phosphate 13.6 mmol/ Magnesium Sulfate 5 meq/ Calcium Gluconate 5 meq/ Multivitamins 10 ml/Chromium/ Copper/Manganese/ Seleni/Zn 1 ml/ Total Parenteral Nutrition/Amino Acids/ Dextrose/ Fat Emulsion Intravenous 1,512 ml @ 63 mls/hr TPN CONT IV Last administered on 12/29/17at 21:58; Start 12/29/17 at 22:00; Stop 12/30/17 at 21:59 ; Status DC Diphenhydramine HCl (Benadryl) 25 mg PRN Q6HRS PRN IVP ITCHING Last administered on 12/30/17at 16:34; Start 12/29/17 at 21:30 Pyridostigmine [place] (Regonol) 2.5 mg Q6H IV Last administered on 01/02/18at 14:41; Start 12/30/17 at 13:00 Sodium Chloride 90 meq/Potassium Chloride 50 meq/ Potassium Phosphate 13.6 mmol/ Magnesium Sulfate 5 meq/ Calcium Gluconate 5 meq/ Multivitamins 10 ml/Chromium/ Copper/Manganese/ Seleni/Zn 1 ml/ Total Parenteral Nutrition/Amino Acids/ Dextrose/ Fat Emulsion Intravenous 1,512 ml @ 63 mls/hr TPN CONT IV Last administered on 12/30/17at 21:37; Start 12/30/17 at 22:00; Stop 12/31/17 at 21:59 ; Status DC Diphenhydramine HCl (Benadryl) 50 mg 1X ONCE IVP Last administered on at 15:03; Start 12/31/17 at 10:30; Stop 12/31/17 at 10:31; Status DC Calcium Gluconate (Calcium Gluconate) 2,000 mg 1X ONCE IVP ; Start 12/31/17 at 10:30; Stop 12/31/17 at 10:31; Status UNV Calcium Gluconate 2000 mg/Dextrose 120 ml @ 240 mls/hr 1X ONCE IV Last administered on 12/31/17at 11:18; Start 12/31/17 at 11:00; Stop 12/31/17 at 11:29 ; Status DC Albumin Human 1,500 ml @ 375 mls/hr 1X ONCE IV Last administered on at 15:03; Start 12/31/17 at 11:45; Stop 12/31/17 at 15:44; Status DC Albumin Human 100 ml @ 25 mls/hr 1X ONCE IV Last administered on 12/31/17at 15 :02; Start 12/31/17 at 12:00; Stop 12/31/17 at 15:59; Status DC Ondansetron HCl (Zofran) 4 mg PRN Q6HRS PRN IV NAUSEA/VOMITING; Start at 07:00; Stop 01/01/18 at 12:00; Status DC Fentanyl Citrate (Fentanyl 2ml Vial) 25 mcg PRN Q5MIN PRN IV MILD PAIN; Start 01/01/18 at 07:00; Stop 01/01/18 at 12:00; Status DC Fentanyl Citrate (Fentanyl 2ml Vial) 50 mcg PRN Q5MIN PRN IV MODERATE TO SEVERE PAIN; Start 01/01/18 at 07:00; Stop 01/01/18 at 12:00; Status DC Morphine Sulfate (Morphine Sulfate) 1 mg PRN Q10MIN PRN IV SEVERE PAIN; Start 01/01/18 at 07:00; Stop 01/01/18 at 12:00; Status DC Ringer's Solution 1,000 ml @ 30 mls/hr Q24H IV Last administered on at 08:17; Start 01/01/18 at 07:00; Stop 01/01/18 at 18:59; Status DC Lidocaine HCl (Xylocaine-Mpf 1% 2ml Vial) 2 ml PRN 1X PRN ID IV START; Start 01/01/18 at 07:00; Stop 01/01/18 at 12:00; Status DC Hydromorphone HCl (Dilaudid) 0.5 mg PRN Q10MIN PRN IV SEV PAIN, Second choice; Start 01/01/18 at 07:00; Stop 01/01/18 at 12:00; Status DC Prochlorperazine Edisylate (Compazine) 5 mg PACU PRN PRN IV NAUSEA, MRX1; Start 01/01/18 at 07:00; Stop 01/01/18 at 12:00; Status DC Heparin Sodium (Porcine) (Heparin Sodium) 10,000 unit STK-MED ONCE .ROUTE ; Start 12/31/17 at 13:58; Stop 12/31/17 at 13:59; Status DC Sodium Chloride 90 meq/Potassium Chloride 35 meq/ Potassium Phosphate 13.6 mmol/ Magnesium Sulfate 5 meq/ Calcium Gluconate 10 meq/ Multivitamins 10 ml/Chromium / Copper/Manganese/ Seleni/Zn 1 ml/ Total Parenteral Nutrition/Amino Acids/ Dextrose/ Fat Emulsion Intravenous 1,512 ml @ 63 mls/hr TPN CONT IV Last administered on 12/31/17at 21:58; Start 12/31/17 at 22:00; Stop 01/01/18 at 21: 59; Status DC Cefazolin Sodium 50 ml @ 100 mls/hr 1X PREOP PRN IV PER PROTOCOL Last administered on 01/01/18at 08:41; Start 01/01/18 at 11:00; Stop 01/01/18 at 12 :00; Status DC Midazolam HCl (Versed) 2 mg PRN 1X PRN IV PRIOR TO PROCEDURE; Start 01/01/18 at 08:15; Stop 01/01/18 at 12:00; Status DC Fentanyl Citrate (Fentanyl 2ml Vial) 25 mcg PRN Q5MIN PRN IV X 2 DOSES FOR PAIN ; Start 01/01/18 at 08:15; Stop 01/01/18 at 18:00; Status Cancel Fentanyl Citrate (Fentanyl 2ml Vial) 50 mcg PRN Q5MIN PRN IV X 2 DOSES FOR PAIN ; Start 01/01/18 at 08:15; Stop 01/01/18 at 18:00; Status Cancel Ringer's Solution 1,000 ml @ 125 mls/hr Q8H IV ; Start 01/01/18 at 08:02; Stop 01/01/18 at 12:00; Status DC Lidocaine HCl (Xylocaine-Mpf 1% 2ml Vial) 2 ml 1X PRN PRN ID IV START; Start 01/01/18 at 08:15; Stop 01/01/18 at 18:00; Status Cancel Cefazolin Sodium 50 ml @ As Directed STK-MED ONCE IV ; Start 01/01/18 at 08:19 ; Stop 01/01/18 at 08:20; Status DC Sodium Chloride 90 meq/Potassium Chloride 35 meq/ Potassium Phosphate 13.6 mmol/ Magnesium Sulfate 5 meq/ Calcium Gluconate 10 meq/ Multivitamins 10 ml/Chromium / Copper/Manganese/ Seleni/Zn 1 ml/ Total Parenteral Nutrition/Amino Acids/ Dextrose/ Fat Emulsion Intravenous 1,512 ml @ 63 mls/hr TPN CONT IV ; Start 01/01/18 at 22:00; Stop 01/02/18 at 21:59 Calcium Chloride 1000 mg/Sodium Chloride 60 ml @ 120 mls/hr 1X ONCE IV Last administered on 01/02/18at 14:43; Start 01/02/18 at 12:45; Stop 01/02/18 at 13 :14; Status DC Diphenhydramine HCl (Benadryl) 50 mg 1X ONCE IVP ; Start 01/02/18 at 15:30; Stop 01/02/18 at 15:31 Acetaminophen (Tylenol) 650 mg 1X ONCE PO ; Start 01/02/18 at 15:00; Stop 02/09 at 15:01; Status DC Active Scripts Active Reported Amoxicillin 875 Mg Tablet 1 Tab PO BID Levothyroxine Sodium 25 Mcg Tablet 1 Tab PO DAILY Proair Hfa Inhaler (Albuterol Sulfate) 8.5 Gm Hfa.aer.ad 1 Puff INH PRN Q6HRS PRN [kaitlib fe] Hydrocodone-Apap 7.5-325/15 Soln (Hydrocodone Bit/Acetaminophen) 15 Ml Solution 15 Ml PO PRN Q4HRS PRN Prednisone 50 Mg Tablet 1 Tab PO DAILY Fluticasone Propionate Nasal [place] (Fluticasone Propionate) 16 Gm [place].susp 1 [place] NS DAILY [zoloft] [ativan] Vitals/I & O Vital Sign - Last 24 Hours 01/01/18 01/01/18 01/01/18 01/01/18 15:50 18:14 19:00 20:00 Temp 97.5 97.5 Pulse 65 Resp 17 18 B/P (MAP) 127/76 (93) Pulse Ox 98 98 O2 Delivery Room Air Room Air Room Air Room Air 01/01/18 01/01/18 01/02/18 01/02/18 22:33 23:00 01:46 03:00 Temp 97.9 97.5 97.9 97.5 Pulse 68 110 Resp 18 18 18 18 B/P (MAP) 119/78 (92) 128/76 (93) Pulse Ox 98 96 98 97 O2 Delivery Room Air Room Air Room Air Room Air O2 Flow Rate 2.0 2.0 01/02/18 01/02/18 01/02/18 01/02/18 04:19 06:12 06:42 07:00 Temp 97.3 97.3 Pulse 84 Resp 18 11 14 17 B/P (MAP) 120/73 (89) Pulse Ox 98 98 96 O2 Delivery Room Air Room Air Room Air O2 Flow Rate 2.0 01/02/18 01/02/18 01/02/18 01/02/18 08:00 08:30 09:00 12:35 Pulse Ox 98 98 98 O2 Delivery Room Air Room Air Room Air O2 Flow Rate 2.0 2.0 2.0 2.0 01/02/18 01/02/18 14:52 14:55 O2 Delivery Room Air Room Air Intake and Output 01/01/18 01/01/18 01/02/18 15:00 23:00 07:00 Intake Total 60 ml 0 ml Balance 60 ml 0 ml GAURAV BARONE MD Jan 02, 2018 15:20
[2018-01-02] MEDS ORDERED: diphenhydrAMINE 50 MG/ML VIAL IVP ONE (15:30)
[2018-01-02] MEDS: CALCIUM CARBONATE 500 MG TABLET PO SCH ×2 (15:45→20:41)
[2018-01-02] MEDS: PYRIDOSTIGMINE BROMIDE 60 MG TABLET PEG SCH (15:45)
[2018-01-02] MEDS: predniSONE 20 MG TABLET PEG SCH (15:45)
[2018-01-02] MEDS ORDERED: ERGOCALCIFEROL (VITAMIN D2) 50,000 UNIT CAPSULE. PO SCH (16:00)
[2018-01-02 19:00] VITALS: BP 139/88
[2018-01-02] MEDS: FAMOTIDINE 20 MG/2 ML VIAL IVP SCH (20:40)
[2018-01-02] MEDS: MIRTAZAPINE 15 MG TABLET PO SCH (20:41)
[2018-01-02 23:00] VITALS: BP 121/82
[2018-01-03] MEDS: PYRIDOSTIGMINE BROMIDE 60 MG TABLET PEG SCH ×4 (00:18→17:24)
[2018-01-03] MEDS: MORPHINE SULFATE 2 MG/ML VIAL. IV PRN ×5 (00:44→19:47)
[2018-01-03 03:00] VITALS: BP 130/72
[2018-01-03] MEDS: INSULIN LISPRO 300 UNITS/3 ML INSULN.PEN. SQ SCH ×3 (06:24→12:00)
[2018-01-03 07:00] VITALS: BP 121/75
[2018-01-03 07:24] LABS: ALBUMIN 3.2 g/dL (3.4-5.0); ALBUMIN/GLOBULIN RATIO 1.7 (1.0-1.7); CALCIUM 8.7 mg/dL (8.5-10.1); CREATININE 0.5 mg/dL (0.6-1.0); GFR 152.9; POTASSIUM 4.2 mmol/L (3.5-5.1); TOTAL BILIRUBIN 0.3 mg/dL (0.2-1.0); TOTAL PROTEIN 5.1 g/dL (6.4-8.2)
[2018-01-03] MEDS: FLUTICASONE 50MCG/NASAL SPRAY 16GM BOTTLE. NS SCH (09:52)
[2018-01-03] MEDS: NORMAL SALINE IVP SCH (09:52)
[2018-01-03] MEDS: LEVOTHYROXINE SODIUM IVP SCH (09:52)
[2018-01-03] MEDS: predniSONE 20 MG TABLET PEG SCH (09:53)
[2018-01-03] MEDS: CALCIUM CARBONATE 500 MG TABLET PO SCH ×3 (09:53→21:40)
--- NOTE | 2018-01-03 10:14 | PDOC ---
Subjective: Subjective: Pain is a little better - improved with meds (for anxiety and pain). Passing gas. Mother reports "she almost peed her pants three times yesterday" because she was in so much pain. Objective: Objective: Reviewed w/ RN - asking for morphine, c/o abd pain, PEG functioning, feeds going well. Vital Signs: Vital Signs Date Time Temp Pulse Resp B/P (MAP) Pulse Ox O2 Delivery O2 Flow Rate FiO2 01/03/18 09:51 17 Room Air 01/03/18 07:00 97.7 66 121/75 (90) 97 97.7 01/02/18 20:00 2.0 Labs: Laboratory Tests Test 01/02/18 11:58 01/02/18 13:00 01/02/18 17:12 01/03/18 00:19 Glucose (Fingerstick) 185 mg/dL 188 mg/dL 204 mg/dL White Blood Count 18.8 x10^3/uL Red Blood Count 4.36 x10^6/uL Hemoglobin 12.4 g/dL Hematocrit 36.6 % Mean Corpuscular Volume 84 fL Mean Corpuscular Hemoglobin 28 pg Mean Corpuscular Hemoglobin Concent 34 g/dL Red Cell Distribution Width 12.5 % Platelet Count 145 x10^3/uL Prothrombin Time 13.2 SEC Prothromb Time International Ratio 1.1 Activated Partial Thromboplast Time 25 SEC Fibrinogen 202 mg/dL Test 01/03/18 06:19 01/03/18 06:40 Glucose (Fingerstick) 178 mg/dL Sodium Level 140 mmol/L Potassium Level 4.2 mmol/L Chloride Level 100 mmol/L Carbon Dioxide Level 35 mmol/L Anion Gap 5 Blood Urea Nitrogen 21 mg/dL Creatinine 0.5 mg/dL Estimated GFR (Cockcroft-Gault) 152.9 BUN/Creatinine Ratio 42 Glucose Level 180 mg/dL Calcium Level 8.7 mg/dL Total Bilirubin 0.3 mg/dL Aspartate Amino Transf (AST/SGOT) 22 U/L Alanine Aminotransferase (ALT/SGPT) 107 U/L Alkaline Phosphatase 44 U/L Total Protein 5.1 g/dL Albumin 3.2 g/dL Albumin/Globulin Ratio 1.7 Imaging: KUB 01/02 FINDINGS: The bowel gas pattern is nonobstructive. Contrast is seen in the proximal colon and to a lesser degree the distal large bowel. There is a PEG tube projecting over the central upper abdomen. No gross pneumoperitoneum is identified, though single supine radiograph is limited for evaluation. No acute osseous changes are seen. IMPRESSION: PEG tube noted. No gross abdominal abnormalities identified. PE: GEN: NAD, was asleep LUNGS: CTAB HEART: RRR ABD: BS+, soft, tenderness mostly around PEG site NEURO/PSYCH: A & O 3 A/P: Myasthenia gravis w/ dysphagia S/p PEG 12/31/17 Abd pain Leukocytosis on prednisone -- Ongoing abd pain - check CT. Called by RN - CT called, mentioned retained contrast. Reviewed w/ Dr. Sparrow - proceed w/ CT. Dr. Martinez called - would like to discharge soon. OFELIA QUINN Jan 03, 2018 10:14
[2018-01-03] MEDS ORDERED: IOHEXOL 300 MG/ML 100ML VIAL. IV ONE (10:45)
[2018-01-03] MEDS ORDERED: IOHEXOL 240 MG/ML 50ML VIAL. PO ONE (10:45)
--- NOTE | 2018-01-03 10:57 | DISCH ---
DISCHARGE WITH HOME HEALTH DISCHARGE INFORMATION: Final Diagnosis: Problems Medical Problems: (1) Diplopia Status: Acute (2) Marijuana abuse Status: Acute (3) Myasthenia gravis with acute exacerbation Status: Acute (4) Neck muscle weakness Status: Acute (5) RUE weakness Status: Acute (6) Sinusitis Status: Acute Condition on Discharge: Stable CODE STATUS: Code Status: Full HOME HEALTH: Face to Face: I certify this patient is under my care and that I, or a nurse practitioner or physician's assistant auto center manager working with me, had a face to face encounter that meets the physician face to face encounter requirements with this patient on []. Medical Complications: Other (Myasthenia gravis) Speech Language Pathology For: Evaluation/Treatment Home Health Aide For: Self-care RNFA For: Community Resources Pt Meets Homebound Status: Poor coordination w/ amb. POST DISCHARGE ORDERS: Weight Bearing Status after Di: Other, see below (PT OT to make further activity recs) CERTIFICATION STATEMENT: Certification Statement: Certification Statement: Based on the above finding, I certify that this patient is confined to the home and needs intermittent mcc care, physical therapy and/or speech therapy, or continues to need occupational therapy.~ This patient is under my care, and I have initiated the establishment of the plan of care.~ This patient will be followed by myself or a community physician who will periodically review the plan of care. Home Meds Reported Medications Amoxicillin (AMOXICILLIN) 875 Mg Tablet, 1 TAB PO BID, #14 TAB 12/18/17 Levothyroxine Sodium (LEVOTHYROXINE SODIUM) 25 Mcg Tablet, 1 TAB PO DAILY, #30 TAB 5 Refills 12/18/17 Albuterol Sulfate (PROAIR HFA INHALER) 8.5 Gm Hfa.aer.ad, 1 PUFF INH PRN Q6HRS PRN for SHORTNESS OF BREATH, INHALER 0 Refills 12/18/17 [kaitlib fe] No Conflict Check 12/18/17 Hydrocodone Bit/Acetaminophen (HYDROCODONE-APAP 7.5-325/15 SOLN ) 15 Ml Solution, 15 ML PO PRN Q4HRS PRN for PAIN, #120 ML 0 Refills 12/18/17 Prednisone (PREDNISONE) 50 Mg Tablet, 1 TAB PO DAILY, #5 TAB 12/18/17 Fluticasone Propionate (FLUTICASONE PROPIONATE NASAL SPRAY) 16 Gm [place].susp, 1 SPRAY NS DAILY, #1 INHALER 11 Refills 12/18/17 [zoloft] No Conflict Check 12/18/17 [ativan] No Conflict Check 12/18/17 EVELYN ARREGUIN III DO Jan 03, 2018 10:57
--- NOTE | 2018-01-03 10:58 | PDOC ---
PROGRESS NOTES Chief Complaint Chief Complaint Myasthenia gravis Constipation Diplopia Dysphagia Eze's thyroiditis Easy bruising Myasthenia gravis w/ dysphagia s/p PEG 12/31/17 Abdominal pain, obstipation History of Present Illness History of Present Illness Pt had a KUB plain film regarding abdominal pain. KUB showed contrast from previous CT, no gross abnormalities appreciated. Pt reports constipation, but most likely it is stemming from morphine use. Pt is going to wean off morphine, start lortab in PEG tube. Pt has a PEG tube in place, switching from tube feeding to bolus feeding today. Hope is to discharge if her bowels start moving and pending education regarding bolus feeding. Pts mother present Pt seen and examined Pt alert and oriented; affect appropriate DW RN VSS Vitals Vitals Vital Signs Date Time Temp Pulse Resp B/P (MAP) Pulse Ox O2 Delivery O2 Flow Rate FiO2 01/03/18 09:51 17 Room Air 01/03/18 07:00 97.7 66 121/75 (90) 97 97.7 01/02/18 20:00 2.0 Physical Exam General: Oriented X3, Cooperative, No acute distress Heart: Regular rate, Normal S1, Normal S2 Lungs: Clear Abdomen: No tenderness, No hepatosplenomegaly, No masses Extremities: No clubbing, No cyanosis Skin: No breakdown, No significant lesion, Other (Lipoma at the nape. ) Labs LABS Laboratory Tests Test 01/02/18 11:58 01/02/18 13:00 01/02/18 17:12 01/03/18 00:19 Glucose (Fingerstick) 185 mg/dL (70-99) 188 mg/dL (70-99) 204 mg/dL (70-99) White Blood Count 18.8 x10^3/uL (4.0-11.0) Red Blood Count 4.36 x10^6/uL (3.50-5.40) Hemoglobin 12.4 g/dL (12.0-15.5) Hematocrit 36.6 % (36.0-47.0) Mean Corpuscular Volume 84 fL (79-100) Mean Corpuscular Hemoglobin 28 pg (25-35) Mean Corpuscular Hemoglobin Concent 34 g/dL (31-37) Red Cell Distribution Width 12.5 % (11.5-14.5) Platelet Count 145 x10^3/uL (140-400) Prothrombin Time 13.2 SEC (11.7-14.0) Prothromb Time International Ratio 1.1 (0.8-1.1) Activated Partial Thromboplast Time 25 SEC (24-38) Fibrinogen 202 mg/dL (200-440) Test 01/03/18 06:19 01/03/18 06:40 Glucose (Fingerstick) 178 mg/dL (70-99) Sodium Level 140 mmol/L (136-145) Potassium Level 4.2 mmol/L (3.5-5.1) Chloride Level 100 mmol/L (98-107) Carbon Dioxide Level 35 mmol/L (21-32) Anion Gap 5 (6-14) Blood Urea Nitrogen 21 mg/dL (7-20) Creatinine 0.5 mg/dL (0.6-1.0) Estimated GFR (Cockcroft-Gault) 152.9 BUN/Creatinine Ratio 42 (6-20) Glucose Level 180 mg/dL (70-99) Calcium Level 8.7 mg/dL (8.5-10.1) Total Bilirubin 0.3 mg/dL (0.2-1.0) Aspartate Amino Transf (AST/SGOT) 22 U/L (15-37) Alanine Aminotransferase (ALT/SGPT) 107 U/L (14-59) Alkaline Phosphatase 44 U/L (46-116) Total Protein 5.1 g/dL (6.4-8.2) Albumin 3.2 g/dL (3.4-5.0) Albumin/Globulin Ratio 1.7 (1.0-1.7) Review of Systems Review of Systems Pt complains of constipation and is still having abdominal pain. Assessment and Plan Assessmemt and Plan Problems Medical Problems: (1) Diplopia Status: Acute (2) Marijuana abuse Status: Acute (3) Myasthenia gravis with acute exacerbation Status: Acute (4) Neck muscle weakness Status: Acute (5) RUE weakness Status: Acute (6) Sinusitis Status: Acute Assessment: Myasthenia gravis Constipation Diplopia Dysphagia Eze's thyroiditis Easy bruising Myasthenia gravis w/ dysphagia s/p PEG 12/31/17 Abdominal pain, obstipation Leukocytosis Plan: Switch from tube feeding to bolus feeding; education regarding bolus feeding Plan is to discharge today if her bowels start moving and GI approves Switch from IV to PO pain and anxiety medications Home medications Labs Comment Review of Relevant I have reviewed the following items maliha (where applicable) has been applied. Labs Laboratory Tests Test 01/01/18 14:23 01/01/18 20:36 01/02/18 01:39 01/02/18 04:30 Glucose (Fingerstick) 196 mg/dL (70-99) 128 mg/dL (70-99) 179 mg/dL (70-99) White Blood Count 15.6 x10^3/uL (4.0-11.0) Red Blood Count 4.29 x10^6/uL (3.50-5.40) Hemoglobin 12.1 g/dL (12.0-15.5) Hematocrit 36.5 % (36.0-47.0) Mean Corpuscular Volume 85 fL (79-100) Mean Corpuscular Hemoglobin 28 pg (25-35) Mean Corpuscular Hemoglobin Concent 33 g/dL (31-37) Red Cell Distribution Width 12.5 % (11.5-14.5) Platelet Count 124 x10^3/uL (140-400) Neutrophils (%) (Auto) 88 % (31-73) Lymphocytes (%) (Auto) 6 % (24-48) Monocytes (%) (Auto) 6 % (0-9) Eosinophils (%) (Auto) 0 % (0-3) Basophils (%) (Auto) 0 % (0-3) Neutrophils # (Auto) 13.7 x10^3uL (1.8-7.7) Lymphocytes # (Auto) 0.9 x10^3/uL (1.0-4.8) Monocytes # (Auto) 1.0 x10^3/uL (0.0-1.1) Eosinophils # (Auto) 0.0 x10^3/uL (0.0-0.7) Basophils # (Auto) 0.0 x10^3/uL (0.0-0.2) Sodium Level 139 mmol/L (136-145) Potassium Level 4.4 mmol/L (3.5-5.1) Chloride Level 101 mmol/L (98-107) Carbon Dioxide Level 30 mmol/L (21-32) Anion Gap 8 (6-14) Blood Urea Nitrogen 21 mg/dL (7-20) Creatinine 0.6 mg/dL (0.6-1.0) Estimated GFR (Cockcroft-Gault) 123.9 BUN/Creatinine Ratio 35 (6-20) Glucose Level 209 mg/dL (70-99) Calcium Level 8.6 mg/dL (8.5-10.1) Phosphorus Level 4.7 mg/dL (2.6-4.7) Magnesium Level 2.3 mg/dL (1.8-2.4) Total Bilirubin 0.5 mg/dL (0.2-1.0) Aspartate Amino Transf (AST/SGOT) 31 U/L (15-37) Alanine Aminotransferase (ALT/SGPT) 149 U/L (14-59) Alkaline Phosphatase 39 U/L (46-116) Total Protein 5.6 g/dL (6.4-8.2) Albumin 3.6 g/dL (3.4-5.0) Albumin/Globulin Ratio 1.8 (1.0-1.7) Triglycerides Level 163 mg/dL (0-150) Test 01/02/18 06:08 01/02/18 11:58 01/02/18 13:00 01/02/18 17:12 Glucose (Fingerstick) 160 mg/dL (70-99) 185 mg/dL (70-99) 188 mg/dL (70-99) White Blood Count 18.8 x10^3/uL (4.0-11.0) Red Blood Count 4.36 x10^6/uL (3.50-5.40) Hemoglobin 12.4 g/dL (12.0-15.5) Hematocrit 36.6 % (36.0-47.0) Mean Corpuscular Volume 84 fL (79-100) Mean Corpuscular Hemoglobin 28 pg (25-35) Mean Corpuscular Hemoglobin Concent 34 g/dL (31-37) Red Cell Distribution Width 12.5 % (11.5-14.5) Platelet Count 145 x10^3/uL (140-400) Prothrombin Time 13.2 SEC (11.7-14.0) Prothromb Time International Ratio 1.1 (0.8-1.1) Activated Partial Thromboplast Time 25 SEC (24-38) Fibrinogen 202 mg/dL (200-440) Test 01/03/18 00:19 01/03/18 06:19 01/03/18 06:40 Glucose (Fingerstick) 204 mg/dL (70-99) 178 mg/dL (70-99) Sodium Level 140 mmol/L (136-145) Potassium Level 4.2 mmol/L (3.5-5.1) Chloride Level 100 mmol/L (98-107) Carbon Dioxide Level 35 mmol/L (21-32) Anion Gap 5 (6-14) Blood Urea Nitrogen 21 mg/dL (7-20) Creatinine 0.5 mg/dL (0.6-1.0) Estimated GFR (Cockcroft-Gault) 152.9 BUN/Creatinine Ratio 42 (6-20) Glucose Level 180 mg/dL (70-99) Calcium Level 8.7 mg/dL (8.5-10.1) Total Bilirubin 0.3 mg/dL (0.2-1.0) Aspartate Amino Transf (AST/SGOT) 22 U/L (15-37) Alanine Aminotransferase (ALT/SGPT) 107 U/L (14-59) Alkaline Phosphatase 44 U/L (46-116) Total Protein 5.1 g/dL (6.4-8.2) Albumin 3.2 g/dL (3.4-5.0) Albumin/Globulin Ratio 1.7 (1.0-1.7) Laboratory Tests Test 01/02/18 11:58 01/02/18 13:00 01/02/18 17:12 01/03/18 00:19 Glucose (Fingerstick) 185 mg/dL (70-99) 188 mg/dL (70-99) 204 mg/dL (70-99) White Blood Count 18.8 x10^3/uL (4.0-11.0) Red Blood Count 4.36 x10^6/uL (3.50-5.40) Hemoglobin 12.4 g/dL (12.0-15.5) Hematocrit 36.6 % (36.0-47.0) Mean Corpuscular Volume 84 fL (79-100) Mean Corpuscular Hemoglobin 28 pg (25-35) Mean Corpuscular Hemoglobin Concent 34 g/dL (31-37) Red Cell Distribution Width 12.5 % (11.5-14.5) Platelet Count 145 x10^3/uL (140-400) Prothrombin Time 13.2 SEC (11.7-14.0) Prothromb Time International Ratio 1.1 (0.8-1.1) Activated Partial Thromboplast Time 25 SEC (24-38) Fibrinogen 202 mg/dL (200-440) Test 01/03/18 06:19 01/03/18 06:40 Glucose (Fingerstick) 178 mg/dL (70-99) Sodium Level 140 mmol/L (136-145) Potassium Level 4.2 mmol/L (3.5-5.1) Chloride Level 100 mmol/L (98-107) Carbon Dioxide Level 35 mmol/L (21-32) Anion Gap 5 (6-14) Blood Urea Nitrogen 21 mg/dL (7-20) Creatinine 0.5 mg/dL (0.6-1.0) Estimated GFR (Cockcroft-Gault) 152.9 BUN/Creatinine Ratio 42 (6-20) Glucose Level 180 mg/dL (70-99) Calcium Level 8.7 mg/dL (8.5-10.1) Total Bilirubin 0.3 mg/dL (0.2-1.0) Aspartate Amino Transf (AST/SGOT) 22 U/L (15-37) Alanine Aminotransferase (ALT/SGPT) 107 U/L (14-59) Alkaline Phosphatase 44 U/L (46-116) Total Protein 5.1 g/dL (6.4-8.2) Albumin 3.2 g/dL (3.4-5.0) Albumin/Globulin Ratio 1.7 (1.0-1.7) Medications Current Medications Meclizine HCl (Antivert) 25 mg 1X ONCE PO Last administered on 12/17/17at 20:00 ; Start 12/17/17 at 20:00; Stop 12/17/17 at 20:01; Status DC Sodium Chloride 1,000 ml @ 1,000 mls/hr 1X ONCE IV Last administered on at 20:35; Start 12/17/17 at 20:15; Stop 12/17/17 at 21:14; Status DC Ketorolac Tromethamine (Toradol 15mg Vial) 15 mg 1X ONCE IV Last administered on 12/17/17at 20:36; Start 12/17/17 at 20:15; Stop 12/17/17 at 20:16; Status DC Diphenhydramine HCl (Benadryl) 25 mg 1X ONCE PO Last administered on at 02:16; Start 12/18/17 at 02:15; Stop 12/18/17 at 02:18; Status DC Acetaminophen (Tylenol) 500 mg PRN Q6HRS PRN PO MILD PAIN / TEMP; Start at 09:00 Acetaminophen/ Codeine Phosphate (Tylenol #3) 1 tab PRN Q6HRS PRN PO PAIN; Start 12/18/17 at 09:00; Stop 12/18/17 at 12:08; Status DC Ibuprofen (Motrin) 600 mg PRN Q6HRS PRN PO INFLAMMATION; Start 12/18/17 at 09: 00; Stop 12/19/17 at 16:23; Status DC Ondansetron HCl (Zofran) 4 mg PRN Q6HRS PRN IV NAUSEA/VOMITING Last administered on 01/02/18at 08:30; Start 12/18/17 at 09:00 Ondansetron HCl (Zofran Odt) 4 mg PRN Q6HRS PRN PO NAUSEA/VOMITING; Start 12/18 at 09:00; Stop 12/18/17 at 12:08; Status DC Fluticasone Propionate (Flonase) 1 spray DAILY NS Last administered on at 09:52; Start 12/18/17 at 09:00 Acetaminophen/ Hydrocodone Bitart (Lortab 7.5-325/ 15ml Oral Solution) 15 ml PRN Q4HRS PRN PO MODERATE PAIN; Start 12/18/17 at 09:00; Stop 12/19/17 at 16:23 ; Status DC Non-Formulary Medication (Albuterol Sulfate (Proair Hfa Inhaler)) 1 puff PRN Q6HRS PRN INH SHORTNESS OF BREATH; Start 12/18/17 at 09:00; Status UNV Amoxicillin (Amoxil) 750 mg BID PO Last administered on 12/18/17at 21:02; Start 12/18/17 at 10:00; Stop 12/19/17 at 16:23; Status DC Levothyroxine Sodium (Synthroid) 25 mcg DAILY07 PO ; Start 12/18/17 at 10:30; Stop 12/18/17 at 12:08; Status DC Prednisone (Prednisone) 50 mg DAILY PO ; Start 12/18/17 at 10:00; Stop 12/18/17 at 12:08; Status DC Alprazolam (Xanax) 0.25 mg PRN Q8HRS PRN PO ANXIETY / AGITATION; Start at 09:00; Stop 12/19/17 at 08:14; Status DC Zolpidem Tartrate (Ambien) 5 mg PRN QHS PRN PO INSOMNIA; Start 12/18/17 at 09: 00; Stop 12/18/17 at 12:08; Status DC Cetirizine HCl (ZyrTEC) 10 mg DAILY PO ; Start 12/18/17 at 10:00; Stop 12/18/17 at 12:08; Status DC Non-Formulary Medication 1 ea 1X ONCE IV ; Start 12/18/17 at 09:00; Stop at 09:01; Status UNV Potassium Chloride/Dextrose/ Sod Cl 1,000 ml @ 80 mls/hr [id number] IV Last administered on 12/19/17at 10:00; Start 12/18/17 at 09:00; Stop 12/20/17 at 09:07 ; Status DC Albuterol Sulfate (Ventolin Neb Soln) 2.5 mg PRN Q6HRS PRN NEB SHORTNESS OF BREATH Last administered on 12/27/17at 19:26; Start 12/18/17 at 09:30 Iohexol (Omnipaque 300 Mg/ml) 75 ml 1X ONCE IV Last administered on 12/18/17at 10:31; Start 12/18/17 at 10:15; Stop 12/18/17 at 10:16; Status DC Info (CONTRAST GIVEN -- Rx MONITORING) 1 each PRN DAILY PRN MC SEE COMMENTS; Start 12/18/17 at 10:15; Stop 12/20/17 at 10:14; Status DC Levothyroxine Sodium 15 mcg/ Sodium Chloride 5 ml @ 100 mls/hr DAILY IVP Last administered on 12/20/17at 09:41; Start 12/18/17 at 12:30; Stop 12/20/17 at 11:44 ; Status DC Lorazepam (Ativan) 1 mg PRN Q4HRS PRN IV ANXIETY / AGITATION Last administered on 01/03/18at 07:15; Start 12/18/17 at 13:15 Alprazolam (Xanax) 0.25 mg PRN Q8HRS PRN NG ANXIETY / AGITATION Last administered on 12/19/17at 01:13; Start 12/18/17 at 13:15; Stop 12/19/17 at 16:23 ; Status DC Pyridostigmine [place] (Mestinon) 60 mg BID NG Last administered on 12/18/17at 21:01; Start 12/18/17 at 13:00; Stop 12/19/17 at 16:23; Status DC Prednisone (Prednisone) 50 mg DAILY PO Last administered on 12/18/17at 16:03; Start 12/18/17 at 13:00; Stop 12/19/17 at 16:23; Status DC Famotidine (Pepcid) 20 mg QHS PO Last administered on 12/18/17at 21:01; Start at 21:00; Stop 12/19/17 at 16:23; Status DC Calcium Carbonate/ Glycine (Oscal) 500 mg TIDAFTMEAL PO ; Start 12/18/17 at 18: 00; Stop 12/19/17 at 16:23; Status DC Ergocalciferol (Vitamin D2) 50,000 unit MoTh PO ; Start 12/19/17 at 09:00; Stop 12/19/17 at 16:23; Status DC Lidocaine/Sodium Bicarbonate (Buffered Lidocaine 1%) 3 ml STK-MED ONCE .ROUTE ; Start 12/18/17 at 14:32; Stop 12/18/17 at 14:33; Status DC Heparin Sodium (Porcine) (Heparin Sodium) 10,000 unit STK-MED ONCE .ROUTE ; Start 12/18/17 at 14:32; Stop 12/18/17 at 14:33; Status DC Lidocaine/Sodium Bicarbonate (Buffered Lidocaine 1%) 3 ml 1X ONCE INJ Last administered on 12/18/17at 15:15; Start 12/18/17 at 15:15; Stop 12/18/17 at 15:16 ; Status DC Heparin Sodium (Porcine) (Heparin Sodium) 2,200 unit 1X ONCE INT CAT Last administered on 12/18/17at 15:15; Start 12/18/17 at 15:15; Stop 12/18/17 at 15:16 ; Status DC Scopolamine (Transderm-Scop) 1 patch 1X ONCE TD Last administered on at 21:41; Start 12/18/17 at 21:30; Stop 12/19/17 at 16:23; Status DC Albumin Human 1,500 ml @ 0 mls/hr 1X ONCE IV Last administered on 12/19/17at 11:38; Start 12/19/17 at 08:15; Stop 12/19/17 at 08:16; Status DC Heparin Sodium (Porcine) (Heparin Sodium) 10,000 unit STK-MED ONCE .ROUTE ; Start 12/19/17 at 08:40; Stop 12/19/17 at 08:41; Status DC Info (Tpn Per Pharmacy) 1 each PRN DAILY PRN MC SEE COMMENTS Last administered on 01/01/18at 11:31; Start 12/20/17 at 16:30; Stop 01/02/18 at 22:00; Status DC Pyridostigmine [place] (Regonol) 2.5 mg Q12HR IV Last administered on at 09:56; Start 12/19/17 at 21:00; Stop 12/26/17 at 15:52; Status DC Methylprednisolone Sodium Succinate (SOLU-Medrol 40MG VIAL) 40 mg Q12HR IV Last administered on 01/02/18at 08:31; Start 12/19/17 at 21:00; Stop 01/02/18 at 15:24; Status DC Famotidine (Pepcid Vial) 20 mg QHS IVP Last administered on 12/19/17at 21:33; Start 12/19/17 at 21:00; Stop 12/20/17 at 11:44; Status DC Morphine Sulfate (Morphine Sulfate) 2 mg PRN Q2HR PRN IV MODERATE TO SEVERE PAIN Last administered on 01/03/18at 09:51; Start 12/19/17 at 23:15 Amino Acids/ Glycerin/ Electrolytes 1,000 ml @ 80 mls/hr [id number] IV Last administered on 12/20/17at 09:57; Start 12/20/17 at 09:30; Stop 12/20/17 at 11:44 ; Status DC Alteplase, Recombinant (Cathflo) 2 mg 1X ONCE IV Last administered on at 12:37; Start 12/20/17 at 11:45; Stop 12/20/17 at 11:46; Status DC Cyclobenzaprine HCl (Flexeril) 5 mg QID PO Last administered on 12/21/17at 09:10 ; Start 12/20/17 at 17:00; Stop 12/29/17 at 11:33; Status DC Cyclobenzaprine HCl (Flexeril) 10 mg 1X ONCE PO ; Start 12/20/17 at 11:45; Stop 12/20/17 at 11:53; Status DC Levothyroxine Sodium (Synthroid) 25 mcg DAILY07 PO ; Start 12/21/17 at 07:00; Stop 12/21/17 at 07:00; Status DC Levothyroxine Sodium 12.5 mcg/ Sodium Chloride 5 ml @ 100 mls/hr DAILY IVP Last administered on 01/03/18at 09:52; Start 12/21/17 at 09:00 Sodium Chloride 90 meq/Potassium Chloride 50 meq/ Potassium Phosphate 13.6 mmol/ Magnesium Sulfate 5 meq/ Calcium Gluconate 5 meq/ Multivitamins 10 ml/Chromium/ Copper/Manganese/ Seleni/Zn 1 ml/ Total Parenteral Nutrition/Amino Acids/ Dextrose/ Fat Emulsion Intravenous 1,512 ml @ 63 mls/hr TPN CONT IV Last administered on 12/20/17at 20:58; Start 12/20/17 at 22:00; Stop 12/21/17 at 21:59 ; Status DC Albumin Human 1,200 ml @ 0 mls/hr 1X ONCE IV Last administered on 12/21/17at 10:40; Start 12/21/17 at 08:45; Stop 12/21/17 at 08:46; Status DC Heparin Sodium (Porcine) (Heparin Sodium) 10,000 unit STK-MED ONCE .ROUTE ; Start 12/21/17 at 08:50; Stop 12/21/17 at 08:51; Status DC Diphenhydramine HCl (Benadryl) 50 mg STK-MED ONCE .ROUTE ; Start 12/21/17 at 11: 46; Stop 12/21/17 at 11:47; Status DC Diphenhydramine HCl (Benadryl) 50 mg 1X ONCE IVP Last administered on at 11:59; Start 12/21/17 at 12:00; Stop 12/21/17 at 12:01; Status DC Sodium Chloride 90 meq/Potassium Chloride 50 meq/ Potassium Phosphate 13.6 mmol/ Magnesium Sulfate 5 meq/ Calcium Gluconate 5 meq/ Multivitamins 10 ml/Chromium/ Copper/Manganese/ Seleni/Zn 1 ml/ Total Parenteral Nutrition/Amino Acids/ Dextrose/ Fat Emulsion Intravenous 1,512 ml @ 63 mls/hr TPN CONT IV Last administered on 12/21/17at 22:00; Start 12/21/17 at 22:00; Stop 12/22/17 at 21:59 ; Status DC Sodium Chloride 90 meq/Potassium Chloride 50 meq/ Potassium Phosphate 13.6 mmol/ Magnesium Sulfate 5 meq/ Calcium Gluconate 5 meq/ Multivitamins 10 ml/Chromium/ Copper/Manganese/ Seleni/Zn 1 ml/ Total Parenteral Nutrition/Amino Acids/ Dextrose/ Fat Emulsion Intravenous 1,512 ml @ 63 mls/hr TPN CONT IV Last administered on 12/22/17at 21:26; Start 12/22/17 at 22:00; Stop 12/23/17 at 21:59 ; Status DC Famotidine (Pepcid Vial) 20 mg QHS IVP Last administered on 01/02/18at 20:40; Start 12/23/17 at 21:00 Sodium Chloride 90 meq/Potassium Chloride 50 meq/ Potassium Phosphate 13.6 mmol/ Magnesium Sulfate 5 meq/ Calcium Gluconate 5 meq/ Multivitamins 10 ml/Chromium/ Copper/Manganese/ Seleni/Zn 1 ml/ Total Parenteral Nutrition/Amino Acids/ Dextrose/ Fat Emulsion Intravenous 1,512 ml @ 63 mls/hr TPN CONT IV Last administered on 12/23/17at 21:10; Start 12/23/17 at 22:00; Stop 12/24/17 at 21:59 ; Status DC Diphenhydramine HCl (Benadryl) 50 mg 1X ONCE IVP Last administered on at 17:33; Start 12/23/17 at 12:00; Stop 12/23/17 at 12:23; Status DC Albumin Human 1,500 ml @ 125 mls/hr 1X ONCE IV Last administered on at 17:34; Start 12/23/17 at 12:30; Stop 12/24/17 at 00:29; Status DC Heparin Sodium (Porcine) (Heparin Sodium) 10,000 unit STK-MED ONCE .ROUTE ; Start 12/23/17 at 14:57; Stop 12/23/17 at 14:58; Status DC Oxycodone/ Acetaminophen (Percocet 5/325) 1 tab PRN Q6HRS PRN PO PAIN; Start 12/23/17 at 20:45; Status Cancel Sodium Chloride 90 meq/Potassium Chloride 50 meq/ Potassium Phosphate 13.6 mmol/ Magnesium Sulfate 5 meq/ Calcium Gluconate 5 meq/ Multivitamins 10 ml/Chromium/ Copper/Manganese/ Seleni/Zn 1 ml/ Total Parenteral Nutrition/Amino Acids/ Dextrose/ Fat Emulsion Intravenous 1,512 ml @ 63 mls/hr TPN CONT IV Last administered on 12/24/17at 21:11; Start 12/24/17 at 22:00; Stop 12/25/17 at 21:59 ; Status DC Calcium Gluconate 2000 mg/Dextrose 120 ml @ 220 mls/hr 1X ONCE IV Last administered on 12/25/17at 09:51; Start 12/25/17 at 10:00; Stop 12/25/17 at 10:32 ; Status DC Diphenhydramine HCl (Benadryl) 50 mg 1X ONCE IVP Last administered on at 14:16; Start 12/25/17 at 09:30; Stop 12/25/17 at 09:31; Status DC Heparin Sodium (Porcine) (Heparin Sodium) 3,000 unit 1X ONCE IV Last administered on 12/25/17at 09:15; Start 12/25/17 at 09:15; Stop 12/25/17 at 09:16 ; Status DC Albumin Human 1,500 ml @ 0 mls/hr 1X ONCE IV Last administered on 12/25/17at 14:19; Start 12/25/17 at 10:45; Stop 12/25/17 at 10:46; Status DC Albumin Human 200 ml @ 0 mls/hr 1X ONCE IV ; Start 12/25/17 at 10:45; Stop 12/25/17 at 10:46; Status DC Heparin Sodium (Porcine) (Heparin Sodium) 10,000 unit STK-MED ONCE .ROUTE ; Start 12/25/17 at 12:39; Stop 12/25/17 at 12:40; Status DC Insulin Human Lispro (HumaLOG) 0-5 UNITS TIDWMEALS SQ Last administered on 12/29at 10:30; Start 12/25/17 at 17:00; Stop 12/29/17 at 11:33; Status DC Dextrose (Dextrose 50%-Water Syringe) 12.5 gm PRN Q15MIN PRN IV SEE COMMENTS; Start 12/25/17 at 13:30 Sodium Chloride 90 meq/Potassium Chloride 50 meq/ Potassium Phosphate 13.6 mmol/ Magnesium Sulfate 5 meq/ Calcium Gluconate 5 meq/ Multivitamins 10 ml/Chromium/ Copper/Manganese/ Seleni/Zn 1 ml/ Total Parenteral Nutrition/Amino Acids/ Dextrose/ Fat Emulsion Intravenous 1,512 ml @ 63 mls/hr TPN CONT IV Last administered on 12/25/17at 21:42; Start 12/25/17 at 22:00; Stop 12/26/17 at 21:59 ; Status DC Barium Sulfate (Varibar Thin Liquid Apple) 148 gm 1X ONCE PO Last administered on 12/26/17at 13:57; Start 12/26/17 at 12:00; Stop 12/26/17 at 12:01 ; Status DC Sodium Chloride 90 meq/Potassium Chloride 50 meq/ Potassium Phosphate 13.6 mmol/ Magnesium Sulfate 5 meq/ Calcium Gluconate 5 meq/ Multivitamins 10 ml/Chromium/ Copper/Manganese/ Seleni/Zn 1 ml/ Total Parenteral Nutrition/Amino Acids/ Dextrose/ Fat Emulsion Intravenous 1,512 ml @ 63 mls/hr TPN CONT IV Last administered on 12/26/17at 21:37; Start 12/26/17 at 22:00; Stop 12/27/17 at 21:59 ; Status DC Vitamin A/Vitamin D (Vitamin A & D Ointment) 1 lila PRN Q1HR PRN TP SKIN PROTECTION Last administered on 12/26/17at 17:42; Start 12/26/17 at 14:15 Pyridostigmine [place] (Regonol) 2.5 mg Q8H IV Last administered on 12/30/17at 00:18; Start 12/26/17 at 17:00; Stop 12/30/17 at 08:53; Status DC Calcium Gluconate 2000 mg/Dextrose 120 ml @ 220 mls/hr 1X ONCE IV ; Start 12/27/17 at 12:30; Stop 12/27/17 at 13:02; Status DC Sodium Chloride 90 meq/Potassium Chloride 50 meq/ Potassium Phosphate 13.6 mmol/ Magnesium Sulfate 5 meq/ Calcium Gluconate 5 meq/ Multivitamins 10 ml/Chromium/ Copper/Manganese/ Seleni/Zn 1 ml/ Total Parenteral Nutrition/Amino Acids/ Dextrose/ Fat Emulsion Intravenous 1,512 ml @ 63 mls/hr TPN CONT IV Last administered on 12/27/17at 23:26; Start 12/27/17 at 22:00; Stop 12/28/17 at 21:59 ; Status DC Albumin Human 1,500 ml @ 0 mls/hr 1X ONCE IV ; Start 12/27/17 at 15:00; Stop 12/27/17 at 15:01; Status DC Sodium Chloride 1,000 ml @ 1,000 mls/hr Q1H ONCE IV ; Start 12/27/17 at 14:30; Stop 12/27/17 at 15:29; Status DC Diphenhydramine HCl (Benadryl) 50 mg 1X ONCE IVP Last administered on at 16:43; Start 12/27/17 at 14:30; Stop 12/27/17 at 14:34; Status DC Heparin Sodium (Porcine) (Heparin Sodium) 10,000 unit STK-MED ONCE .ROUTE ; Start 12/27/17 at 14:42; Stop 12/27/17 at 14:43; Status DC Sodium Chloride 90 meq/Potassium Chloride 50 meq/ Potassium Phosphate 13.6 mmol/ Magnesium Sulfate 5 meq/ Calcium Gluconate 5 meq/ Multivitamins 10 ml/Chromium/ Copper/Manganese/ Seleni/Zn 1 ml/ Total Parenteral Nutrition/Amino Acids/ Dextrose/ Fat Emulsion Intravenous 1,512 ml @ 63 mls/hr TPN CONT IV Last administered on 12/28/17at 22:03; Start 12/28/17 at 22:00; Stop 12/29/17 at 21:59 ; Status DC Mirtazapine (Remeron) 15 mg QHS PO Last administered on 01/02/18at 20:41; Start 12/29/17 at 21:00 Albumin Human 1,000 ml @ 0 mls/hr 1X ONCE IV ; Start 12/29/17 at 11:15; Stop 12/29/17 at 11:16; Status DC Calcium Gluconate (Calcium Gluconate) 1,000 mg 1X ONCE IV ; Start 12/29/17 at 11:15; Stop 12/29/17 at 11:16; Status DC Diphenhydramine HCl (Benadryl) 25 mg 1X ONCE IV ; Start 12/29/17 at 11:15; Stop 12/29/17 at 11:16; Status DC Insulin Human Lispro (HumaLOG) 0-5 UNITS Q6HRS SQ Last administered on at 06:24; Start 12/29/17 at 18:00 Sodium Chloride 90 meq/Potassium Chloride 50 meq/ Potassium Phosphate 13.6 mmol/ Magnesium Sulfate 5 meq/ Calcium Gluconate 5 meq/ Multivitamins 10 ml/Chromium/ Copper/Manganese/ Seleni/Zn 1 ml/ Total Parenteral Nutrition/Amino Acids/ Dextrose/ Fat Emulsion Intravenous 1,512 ml @ 63 mls/hr TPN CONT IV Last administered on 12/29/17at 21:58; Start 12/29/17 at 22:00; Stop 12/30/17 at 21:59 ; Status DC Diphenhydramine HCl (Benadryl) 25 mg PRN Q6HRS PRN IVP ITCHING Last administered on 12/30/17at 16:34; Start 12/29/17 at 21:30 Pyridostigmine [place] (Regonol) 2.5 mg Q6H IV Last administered on 01/02/18at 14:41; Start 12/30/17 at 13:00; Stop 01/02/18 at 15:24; Status DC Sodium Chloride 90 meq/Potassium Chloride 50 meq/ Potassium Phosphate 13.6 mmol/ Magnesium Sulfate 5 meq/ Calcium Gluconate 5 meq/ Multivitamins 10 ml/Chromium/ Copper/Manganese/ Seleni/Zn 1 ml/ Total Parenteral Nutrition/Amino Acids/ Dextrose/ Fat Emulsion Intravenous 1,512 ml @ 63 mls/hr TPN CONT IV Last administered on 12/30/17at 21:37; Start 12/30/17 at 22:00; Stop 12/31/17 at 21:59 ; Status DC Diphenhydramine HCl (Benadryl) 50 mg 1X ONCE IVP Last administered on at 15:03; Start 12/31/17 at 10:30; Stop 12/31/17 at 10:31; Status DC Calcium Gluconate (Calcium Gluconate) 2,000 mg 1X ONCE IVP ; Start 12/31/17 at 10:30; Stop 12/31/17 at 10:31; Status UNV Calcium Gluconate 2000 mg/Dextrose 120 ml @ 240 mls/hr 1X ONCE IV Last administered on 12/31/17at 11:18; Start 12/31/17 at 11:00; Stop 12/31/17 at 11:29 ; Status DC Albumin Human 1,500 ml @ 375 mls/hr 1X ONCE IV Last administered on at 15:03; Start 12/31/17 at 11:45; Stop 12/31/17 at 15:44; Status DC Albumin Human 100 ml @ 25 mls/hr 1X ONCE IV Last administered on 12/31/17at 15 :02; Start 12/31/17 at 12:00; Stop 12/31/17 at 15:59; Status DC Ondansetron HCl (Zofran) 4 mg PRN Q6HRS PRN IV NAUSEA/VOMITING; Start at 07:00; Stop 01/01/18 at 12:00; Status DC Fentanyl Citrate (Fentanyl 2ml Vial) 25 mcg PRN Q5MIN PRN IV MILD PAIN; Start 01/01/18 at 07:00; Stop 01/01/18 at 12:00; Status DC Fentanyl Citrate (Fentanyl 2ml Vial) 50 mcg PRN Q5MIN PRN IV MODERATE TO SEVERE PAIN; Start 01/01/18 at 07:00; Stop 01/01/18 at 12:00; Status DC Morphine Sulfate (Morphine Sulfate) 1 mg PRN Q10MIN PRN IV SEVERE PAIN; Start 01/01/18 at 07:00; Stop 01/01/18 at 12:00; Status DC Ringer's Solution 1,000 ml @ 30 mls/hr Q24H IV Last administered on at 08:17; Start 01/01/18 at 07:00; Stop 01/01/18 at 18:59; Status DC Lidocaine HCl (Xylocaine-Mpf 1% 2ml Vial) 2 ml PRN 1X PRN ID IV START; Start 01/01/18 at 07:00; Stop 01/01/18 at 12:00; Status DC Hydromorphone HCl (Dilaudid) 0.5 mg PRN Q10MIN PRN IV SEV PAIN, Second choice; Start 01/01/18 at 07:00; Stop 01/01/18 at 12:00; Status DC Prochlorperazine Edisylate (Compazine) 5 mg PACU PRN PRN IV NAUSEA, MRX1; Start 01/01/18 at 07:00; Stop 01/01/18 at 12:00; Status DC Heparin Sodium (Porcine) (Heparin Sodium) 10,000 unit STK-MED ONCE .ROUTE ; Start 12/31/17 at 13:58; Stop 12/31/17 at 13:59; Status DC Sodium Chloride 90 meq/Potassium Chloride 35 meq/ Potassium Phosphate 13.6 mmol/ Magnesium Sulfate 5 meq/ Calcium Gluconate 10 meq/ Multivitamins 10 ml/Chromium / Copper/Manganese/ Seleni/Zn 1 ml/ Total Parenteral Nutrition/Amino Acids/ Dextrose/ Fat Emulsion Intravenous 1,512 ml @ 63 mls/hr TPN CONT IV Last administered on 12/31/17at 21:58; Start 12/31/17 at 22:00; Stop 01/01/18 at 21: 59; Status DC Cefazolin Sodium 50 ml @ 100 mls/hr 1X PREOP PRN IV PER PROTOCOL Last administered on 01/01/18at 08:41; Start 01/01/18 at 11:00; Stop 01/01/18 at 12 :00; Status DC Midazolam HCl (Versed) 2 mg PRN 1X PRN IV PRIOR TO PROCEDURE; Start 01/01/18 at 08:15; Stop 01/01/18 at 12:00; Status DC Fentanyl Citrate (Fentanyl 2ml Vial) 25 mcg PRN Q5MIN PRN IV X 2 DOSES FOR PAIN ; Start 01/01/18 at 08:15; Stop 01/01/18 at 18:00; Status Cancel Fentanyl Citrate (Fentanyl 2ml Vial) 50 mcg PRN Q5MIN PRN IV X 2 DOSES FOR PAIN ; Start 01/01/18 at 08:15; Stop 01/01/18 at 18:00; Status Cancel Ringer's Solution 1,000 ml @ 125 mls/hr Q8H IV ; Start 01/01/18 at 08:02; Stop 01/01/18 at 12:00; Status DC Lidocaine HCl (Xylocaine-Mpf 1% 2ml Vial) 2 ml 1X PRN PRN ID IV START; Start 01/01/18 at 08:15; Stop 01/01/18 at 18:00; Status Cancel Cefazolin Sodium 50 ml @ As Directed STK-MED ONCE IV ; Start 01/01/18 at 08:19 ; Stop 01/01/18 at 08:20; Status DC Sodium Chloride 90 meq/Potassium Chloride 35 meq/ Potassium Phosphate 13.6 mmol/ Magnesium Sulfate 5 meq/ Calcium Gluconate 10 meq/ Multivitamins 10 ml/Chromium / Copper/Manganese/ Seleni/Zn 1 ml/ Total Parenteral Nutrition/Amino Acids/ Dextrose/ Fat Emulsion Intravenous 1,512 ml @ 63 mls/hr TPN CONT IV ; Start 01/01/18 at 22:00; Stop 01/02/18 at 21:59; Status DC Calcium Chloride 1000 mg/Sodium Chloride 60 ml @ 120 mls/hr 1X ONCE IV Last administered on 01/02/18at 14:43; Start 01/02/18 at 12:45; Stop 01/02/18 at 13 :14; Status DC Diphenhydramine HCl (Benadryl) 50 mg 1X ONCE IVP ; Start 01/02/18 at 15:30; Stop 01/02/18 at 15:31; Status DC Acetaminophen (Tylenol) 650 mg 1X ONCE PO ; Start 01/02/18 at 15:00; Stop 02/09 at 15:01; Status DC Pyridostigmine [place] (Mestinon) 60 mg Q6HRS PEG Last administered on at 06:17; Start 01/02/18 at 16:00 Prednisone (Prednisone) 60 mg DAILY PEG Last administered on 01/03/18at 09:53; Start 01/02/18 at 16:00 Ergocalciferol (Vitamin D2) 50,000 unit QMTH PO Last administered on at 15:45; Start 01/02/18 at 16:00 Calcium Carbonate/ Glycine (Oscal) 500 mg TID PO Last administered on at 09:53; Start 01/02/18 at 16:00 Tramadol HCl (Ultram) 50 mg PRN Q6HRS PRN PEG PAIN; Start 01/02/18 at 15:30 Iohexol (Omnipaque 240 Mg/ml) 30 ml 1X ONCE PO ; Start 01/03/18 at 10:45; Stop 01/03/18 at 10:46; Status DC Iohexol (Omnipaque 300 Mg/ml) 75 ml 1X ONCE IV ; Start 01/03/18 at 10:45; Stop 01/03/18 at 10:46; Status DC Active Scripts Active Reported Amoxicillin 875 Mg Tablet 1 Tab PO BID Levothyroxine Sodium 25 Mcg Tablet 1 Tab PO DAILY Proair Hfa Inhaler (Albuterol Sulfate) 8.5 Gm Hfa.aer.ad 1 Puff INH PRN Q6HRS PRN [kaitlib fe] Hydrocodone-Apap 7.5-325/15 Soln (Hydrocodone Bit/Acetaminophen) 15 Ml Solution 15 Ml PO PRN Q4HRS PRN Prednisone 50 Mg Tablet 1 Tab PO DAILY Fluticasone Propionate Nasal Ramsay (Fluticasone Propionate) 16 Gm Ramsay.susp 1 Ramsay NS DAILY [zoloft] [ativan] Vitals/I & O Vital Sign - Last 24 Hours 01/02/18 01/02/18 01/02/18 01/02/18 11:00 12:35 14:52 15:00 Temp 98.2 98.2 98.2 98.2 Pulse 71 75 Resp 17 20 B/P (MAP) 118/77 (91) 117/63 (81) Pulse Ox 96 98 94 O2 Delivery Room Air Room Air Room Air Room Air O2 Flow Rate 2.0 01/02/18 01/02/18 01/02/18 01/02/18 18:25 19:00 20:00 20:35 Temp 97.8 97.8 Pulse 93 Resp 17 B/P (MAP) 139/88 (105) Pulse Ox 97 O2 Delivery Room Air Room Air Room Air Room Air O2 Flow Rate 2.0 01/02/18 01/03/18 01/03/18 01/03/18 23:00 00:44 01:18 02:47 Temp 97.6 97.6 Pulse 86 Resp 17 B/P (MAP) 121/82 (95) Pulse Ox 96 O2 Delivery Room Air Room Air Room Air Room Air 01/03/18 01/03/18 01/03/18 01/03/18 03:00 06:12 07:00 09:51 Temp 97.6 97.7 97.6 97.7 Pulse 70 66 Resp 17 18 17 B/P (MAP) 130/72 (91) 121/75 (90) Pulse Ox 98 97 O2 Delivery Room Air Room Air Room Air Room Air Intake and Output 01/02/18 01/02/18 01/03/18 15:00 23:00 07:00 Intake Total 15 ml 340 ml 225 ml Output Total 0 ml Balance 15 ml 340 ml 225 ml EVELYN ARREGUIN III DO Jan 03, 2018 10:58
[2018-01-03 11:00] VITALS: BP 130/80
--- NOTE | 2018-01-03 11:02 | PDOC ---
PROGRESS NOTES Assessment Problems Medical Problems: (1) Diplopia Status: Acute (2) Marijuana abuse Status: Acute (3) Myasthenia gravis with acute exacerbation Status: Acute (4) Neck muscle weakness Status: Acute (5) RUE weakness Status: Acute (6) Sinusitis Status: Acute Myasthenia gravis, on steroids and s/p plasmaphereses Myasthenia serology is positive Chest CT negative for thymoma Also has Eze's thyroiditis Also has anxiety disorder Also has elevated transaminases and positive Hepatitis B surface anybody Brain MRI negative Abdominal pain, G.I. service following Plan Speech therapy, PT, OT PEG feedings Monitor negative inspiratory force Plasmapheresis on hold, may resume in 2 weeks Change to steroids per PEG Change to pyridostigmine to q6h per PEG Now planning to go home with home health. No immediate discharge as she still has abdominal pain and we need to plan out her tube feedings, perhaps bolus feedings Then return to my office in 2 weeks for decision as to whether to readmit for more plasma exchange Subjective Complaints of abdominal pain Objective Vital Signs Date Time Temp Pulse Resp B/P (MAP) Pulse Ox O2 Delivery O2 Flow Rate FiO2 01/03/18 09:51 17 Room Air 01/03/18 07:00 97.7 66 121/75 (90) 97 97.7 01/02/18 20:00 2.0 Intake and Output 01/03/18 07:00 Intake Total 580 ml Output Total 0 ml Balance 580 ml Intake Oral 0 ml Tube Feeding 580 ml Gastric Drainage Total 0 ml # Voids 6 PHYSICAL EXAM Alert. Oriented to time, place and person. PERRL. EOMI. CN: no focal findings. no diplopia. Voice is strong, but still somewhat hypernasal Muscle tone: normal. Muscle strength: 5/5, 5-/5 right arm, 5-/5 neck extension weakness DTR: 2+ Plantar reflex: Flexor Gait: not examined in bed. Sensory exam: no abnormal findings. No cerebellar signs elicited. Review of Relevant I have reviewed the following items maliha (where applicable) has been applied. Labs Laboratory Tests Test 01/01/18 14:23 01/01/18 20:36 01/02/18 01:39 01/02/18 04:30 Glucose (Fingerstick) 196 mg/dL (70-99) 128 mg/dL (70-99) 179 mg/dL (70-99) White Blood Count 15.6 x10^3/uL (4.0-11.0) Red Blood Count 4.29 x10^6/uL (3.50-5.40) Hemoglobin 12.1 g/dL (12.0-15.5) Hematocrit 36.5 % (36.0-47.0) Mean Corpuscular Volume 85 fL (79-100) Mean Corpuscular Hemoglobin 28 pg (25-35) Mean Corpuscular Hemoglobin Concent 33 g/dL (31-37) Red Cell Distribution Width 12.5 % (11.5-14.5) Platelet Count 124 x10^3/uL (140-400) Neutrophils (%) (Auto) 88 % (31-73) Lymphocytes (%) (Auto) 6 % (24-48) Monocytes (%) (Auto) 6 % (0-9) Eosinophils (%) (Auto) 0 % (0-3) Basophils (%) (Auto) 0 % (0-3) Neutrophils # (Auto) 13.7 x10^3uL (1.8-7.7) Lymphocytes # (Auto) 0.9 x10^3/uL (1.0-4.8) Monocytes # (Auto) 1.0 x10^3/uL (0.0-1.1) Eosinophils # (Auto) 0.0 x10^3/uL (0.0-0.7) Basophils # (Auto) 0.0 x10^3/uL (0.0-0.2) Sodium Level 139 mmol/L (136-145) Potassium Level 4.4 mmol/L (3.5-5.1) Chloride Level 101 mmol/L (98-107) Carbon Dioxide Level 30 mmol/L (21-32) Anion Gap 8 (6-14) Blood Urea Nitrogen 21 mg/dL (7-20) Creatinine 0.6 mg/dL (0.6-1.0) Estimated GFR (Cockcroft-Gault) 123.9 BUN/Creatinine Ratio 35 (6-20) Glucose Level 209 mg/dL (70-99) Calcium Level 8.6 mg/dL (8.5-10.1) Phosphorus Level 4.7 mg/dL (2.6-4.7) Magnesium Level 2.3 mg/dL (1.8-2.4) Total Bilirubin 0.5 mg/dL (0.2-1.0) Aspartate Amino Transf (AST/SGOT) 31 U/L (15-37) Alanine Aminotransferase (ALT/SGPT) 149 U/L (14-59) Alkaline Phosphatase 39 U/L (46-116) Total Protein 5.6 g/dL (6.4-8.2) Albumin 3.6 g/dL (3.4-5.0) Albumin/Globulin Ratio 1.8 (1.0-1.7) Triglycerides Level 163 mg/dL (0-150) Test 01/02/18 06:08 01/02/18 11:58 01/02/18 13:00 01/02/18 17:12 Glucose (Fingerstick) 160 mg/dL (70-99) 185 mg/dL (70-99) 188 mg/dL (70-99) White Blood Count 18.8 x10^3/uL (4.0-11.0) Red Blood Count 4.36 x10^6/uL (3.50-5.40) Hemoglobin 12.4 g/dL (12.0-15.5) Hematocrit 36.6 % (36.0-47.0) Mean Corpuscular Volume 84 fL (79-100) Mean Corpuscular Hemoglobin 28 pg (25-35) Mean Corpuscular Hemoglobin Concent 34 g/dL (31-37) Red Cell Distribution Width 12.5 % (11.5-14.5) Platelet Count 145 x10^3/uL (140-400) Prothrombin Time 13.2 SEC (11.7-14.0) Prothromb Time International Ratio 1.1 (0.8-1.1) Activated Partial Thromboplast Time 25 SEC (24-38) Fibrinogen 202 mg/dL (200-440) Test 01/03/18 00:19 01/03/18 06:19 01/03/18 06:40 Glucose (Fingerstick) 204 mg/dL (70-99) 178 mg/dL (70-99) Sodium Level 140 mmol/L (136-145) Potassium Level 4.2 mmol/L (3.5-5.1) Chloride Level 100 mmol/L (98-107) Carbon Dioxide Level 35 mmol/L (21-32) Anion Gap 5 (6-14) Blood Urea Nitrogen 21 mg/dL (7-20) Creatinine 0.5 mg/dL (0.6-1.0) Estimated GFR (Cockcroft-Gault) 152.9 BUN/Creatinine Ratio 42 (6-20) Glucose Level 180 mg/dL (70-99) Calcium Level 8.7 mg/dL (8.5-10.1) Total Bilirubin 0.3 mg/dL (0.2-1.0) Aspartate Amino Transf (AST/SGOT) 22 U/L (15-37) Alanine Aminotransferase (ALT/SGPT) 107 U/L (14-59) Alkaline Phosphatase 44 U/L (46-116) Total Protein 5.1 g/dL (6.4-8.2) Albumin 3.2 g/dL (3.4-5.0) Albumin/Globulin Ratio 1.7 (1.0-1.7) Laboratory Tests Test 01/02/18 11:58 01/02/18 13:00 01/02/18 17:12 01/03/18 00:19 Glucose (Fingerstick) 185 mg/dL (70-99) 188 mg/dL (70-99) 204 mg/dL (70-99) White Blood Count 18.8 x10^3/uL (4.0-11.0) Red Blood Count 4.36 x10^6/uL (3.50-5.40) Hemoglobin 12.4 g/dL (12.0-15.5) Hematocrit 36.6 % (36.0-47.0) Mean Corpuscular Volume 84 fL (79-100) Mean Corpuscular Hemoglobin 28 pg (25-35) Mean Corpuscular Hemoglobin Concent 34 g/dL (31-37) Red Cell Distribution Width 12.5 % (11.5-14.5) Platelet Count 145 x10^3/uL (140-400) Prothrombin Time 13.2 SEC (11.7-14.0) Prothromb Time International Ratio 1.1 (0.8-1.1) Activated Partial Thromboplast Time 25 SEC (24-38) Fibrinogen 202 mg/dL (200-440) Test 01/03/18 06:19 01/03/18 06:40 Glucose (Fingerstick) 178 mg/dL (70-99) Sodium Level 140 mmol/L (136-145) Potassium Level 4.2 mmol/L (3.5-5.1) Chloride Level 100 mmol/L (98-107) Carbon Dioxide Level 35 mmol/L (21-32) Anion Gap 5 (6-14) Blood Urea Nitrogen 21 mg/dL (7-20) Creatinine 0.5 mg/dL (0.6-1.0) Estimated GFR (Cockcroft-Gault) 152.9 BUN/Creatinine Ratio 42 (6-20) Glucose Level 180 mg/dL (70-99) Calcium Level 8.7 mg/dL (8.5-10.1) Total Bilirubin 0.3 mg/dL (0.2-1.0) Aspartate Amino Transf (AST/SGOT) 22 U/L (15-37) Alanine Aminotransferase (ALT/SGPT) 107 U/L (14-59) Alkaline Phosphatase 44 U/L (46-116) Total Protein 5.1 g/dL (6.4-8.2) Albumin 3.2 g/dL (3.4-5.0) Albumin/Globulin Ratio 1.7 (1.0-1.7) Medications Current Medications Meclizine HCl (Antivert) 25 mg 1X ONCE PO Last administered on 12/17/17at 20:00 ; Start 12/17/17 at 20:00; Stop 12/17/17 at 20:01; Status DC Sodium Chloride 1,000 ml @ 1,000 mls/hr 1X ONCE IV Last administered on at 20:35; Start 12/17/17 at 20:15; Stop 12/17/17 at 21:14; Status DC Ketorolac Tromethamine (Toradol 15mg Vial) 15 mg 1X ONCE IV Last administered on 12/17/17at 20:36; Start 12/17/17 at 20:15; Stop 12/17/17 at 20:16; Status DC Diphenhydramine HCl (Benadryl) 25 mg 1X ONCE PO Last administered on at 02:16; Start 12/18/17 at 02:15; Stop 12/18/17 at 02:18; Status DC Acetaminophen (Tylenol) 500 mg PRN Q6HRS PRN PO MILD PAIN / TEMP; Start at 09:00 Acetaminophen/ Codeine Phosphate (Tylenol #3) 1 tab PRN Q6HRS PRN PO PAIN; Start 12/18/17 at 09:00; Stop 12/18/17 at 12:08; Status DC Ibuprofen (Motrin) 600 mg PRN Q6HRS PRN PO INFLAMMATION; Start 12/18/17 at 09: 00; Stop 12/19/17 at 16:23; Status DC Ondansetron HCl (Zofran) 4 mg PRN Q6HRS PRN IV NAUSEA/VOMITING Last administered on 01/02/18at 08:30; Start 12/18/17 at 09:00 Ondansetron HCl (Zofran Odt) 4 mg PRN Q6HRS PRN PO NAUSEA/VOMITING; Start 12/18 at 09:00; Stop 12/18/17 at 12:08; Status DC Fluticasone Propionate (Flonase) 1 spray DAILY NS Last administered on at 09:52; Start 12/18/17 at 09:00 Acetaminophen/ Hydrocodone Bitart (Lortab 7.5-325/ 15ml Oral Solution) 15 ml PRN Q4HRS PRN PO MODERATE PAIN; Start 12/18/17 at 09:00; Stop 12/19/17 at 16:23 ; Status DC Non-Formulary Medication (Albuterol Sulfate (Proair Hfa Inhaler)) 1 puff PRN Q6HRS PRN INH SHORTNESS OF BREATH; Start 12/18/17 at 09:00; Status UNV Amoxicillin (Amoxil) 750 mg BID PO Last administered on 12/18/17at 21:02; Start 12/18/17 at 10:00; Stop 12/19/17 at 16:23; Status DC Levothyroxine Sodium (Synthroid) 25 mcg DAILY07 PO ; Start 12/18/17 at 10:30; Stop 12/18/17 at 12:08; Status DC Prednisone (Prednisone) 50 mg DAILY PO ; Start 12/18/17 at 10:00; Stop 12/18/17 at 12:08; Status DC Alprazolam (Xanax) 0.25 mg PRN Q8HRS PRN PO ANXIETY / AGITATION; Start at 09:00; Stop 12/19/17 at 08:14; Status DC Zolpidem Tartrate (Ambien) 5 mg PRN QHS PRN PO INSOMNIA; Start 12/18/17 at 09: 00; Stop 12/18/17 at 12:08; Status DC Cetirizine HCl (ZyrTEC) 10 mg DAILY PO ; Start 12/18/17 at 10:00; Stop 12/18/17 at 12:08; Status DC Non-Formulary Medication 1 ea 1X ONCE IV ; Start 12/18/17 at 09:00; Stop at 09:01; Status UNV Potassium Chloride/Dextrose/ Sod Cl 1,000 ml @ 80 mls/hr [id number] IV Last administered on 12/19/17at 10:00; Start 12/18/17 at 09:00; Stop 12/20/17 at 09:07 ; Status DC Albuterol Sulfate (Ventolin Neb Soln) 2.5 mg PRN Q6HRS PRN NEB SHORTNESS OF BREATH Last administered on 12/27/17at 19:26; Start 12/18/17 at 09:30 Iohexol (Omnipaque 300 Mg/ml) 75 ml 1X ONCE IV Last administered on 12/18/17at 10:31; Start 12/18/17 at 10:15; Stop 12/18/17 at 10:16; Status DC Info (CONTRAST GIVEN -- Rx MONITORING) 1 each PRN DAILY PRN MC SEE COMMENTS; Start 12/18/17 at 10:15; Stop 12/20/17 at 10:14; Status DC Levothyroxine Sodium 15 mcg/ Sodium Chloride 5 ml @ 100 mls/hr DAILY IVP Last administered on 12/20/17at 09:41; Start 12/18/17 at 12:30; Stop 12/20/17 at 11:44 ; Status DC Lorazepam (Ativan) 1 mg PRN Q4HRS PRN IV ANXIETY / AGITATION Last administered on 01/03/18at 07:15; Start 12/18/17 at 13:15 Alprazolam (Xanax) 0.25 mg PRN Q8HRS PRN NG ANXIETY / AGITATION Last administered on 12/19/17at 01:13; Start 12/18/17 at 13:15; Stop 12/19/17 at 16:23 ; Status DC Pyridostigmine [place] (Mestinon) 60 mg BID NG Last administered on 12/18/17at 21:01; Start 12/18/17 at 13:00; Stop 12/19/17 at 16:23; Status DC Prednisone (Prednisone) 50 mg DAILY PO Last administered on 12/18/17at 16:03; Start 12/18/17 at 13:00; Stop 12/19/17 at 16:23; Status DC Famotidine (Pepcid) 20 mg QHS PO Last administered on 12/18/17at 21:01; Start at 21:00; Stop 12/19/17 at 16:23; Status DC Calcium Carbonate/ Glycine (Oscal) 500 mg TIDAFTMEAL PO ; Start 12/18/17 at 18: 00; Stop 12/19/17 at 16:23; Status DC Ergocalciferol (Vitamin D2) 50,000 unit MoTh PO ; Start 12/19/17 at 09:00; Stop 12/19/17 at 16:23; Status DC Lidocaine/Sodium Bicarbonate (Buffered Lidocaine 1%) 3 ml STK-MED ONCE .ROUTE ; Start 12/18/17 at 14:32; Stop 12/18/17 at 14:33; Status DC Heparin Sodium (Porcine) (Heparin Sodium) 10,000 unit STK-MED ONCE .ROUTE ; Start 12/18/17 at 14:32; Stop 12/18/17 at 14:33; Status DC Lidocaine/Sodium Bicarbonate (Buffered Lidocaine 1%) 3 ml 1X ONCE INJ Last administered on 12/18/17at 15:15; Start 12/18/17 at 15:15; Stop 12/18/17 at 15:16 ; Status DC Heparin Sodium (Porcine) (Heparin Sodium) 2,200 unit 1X ONCE INT CAT Last administered on 12/18/17at 15:15; Start 12/18/17 at 15:15; Stop 12/18/17 at 15:16 ; Status DC Scopolamine (Transderm-Scop) 1 patch 1X ONCE TD Last administered on at 21:41; Start 12/18/17 at 21:30; Stop 12/19/17 at 16:23; Status DC Albumin Human 1,500 ml @ 0 mls/hr 1X ONCE IV Last administered on 12/19/17at 11:38; Start 12/19/17 at 08:15; Stop 12/19/17 at 08:16; Status DC Heparin Sodium (Porcine) (Heparin Sodium) 10,000 unit STK-MED ONCE .ROUTE ; Start 12/19/17 at 08:40; Stop 12/19/17 at 08:41; Status DC Info (Tpn Per Pharmacy) 1 each PRN DAILY PRN MC SEE COMMENTS Last administered on 01/01/18at 11:31; Start 12/20/17 at 16:30; Stop 01/02/18 at 22:00; Status DC Pyridostigmine [place] (Regonol) 2.5 mg Q12HR IV Last administered on at 09:56; Start 12/19/17 at 21:00; Stop 12/26/17 at 15:52; Status DC Methylprednisolone Sodium Succinate (SOLU-Medrol 40MG VIAL) 40 mg Q12HR IV Last administered on 01/02/18at 08:31; Start 12/19/17 at 21:00; Stop 01/02/18 at 15:24; Status DC Famotidine (Pepcid Vial) 20 mg QHS IVP Last administered on 12/19/17at 21:33; Start 12/19/17 at 21:00; Stop 12/20/17 at 11:44; Status DC Morphine Sulfate (Morphine Sulfate) 2 mg PRN Q2HR PRN IV MODERATE TO SEVERE PAIN Last administered on 01/03/18at 09:51; Start 12/19/17 at 23:15 Amino Acids/ Glycerin/ Electrolytes 1,000 ml @ 80 mls/hr [id number] IV Last administered on 12/20/17at 09:57; Start 12/20/17 at 09:30; Stop 12/20/17 at 11:44 ; Status DC Alteplase, Recombinant (Cathflo) 2 mg 1X ONCE IV Last administered on at 12:37; Start 12/20/17 at 11:45; Stop 12/20/17 at 11:46; Status DC Cyclobenzaprine HCl (Flexeril) 5 mg QID PO Last administered on 12/21/17at 09:10 ; Start 12/20/17 at 17:00; Stop 12/29/17 at 11:33; Status DC Cyclobenzaprine HCl (Flexeril) 10 mg 1X ONCE PO ; Start 12/20/17 at 11:45; Stop 12/20/17 at 11:53; Status DC Levothyroxine Sodium (Synthroid) 25 mcg DAILY07 PO ; Start 12/21/17 at 07:00; Stop 12/21/17 at 07:00; Status DC Levothyroxine Sodium 12.5 mcg/ Sodium Chloride 5 ml @ 100 mls/hr DAILY IVP Last administered on 01/03/18at 09:52; Start 12/21/17 at 09:00 Sodium Chloride 90 meq/Potassium Chloride 50 meq/ Potassium Phosphate 13.6 mmol/ Magnesium Sulfate 5 meq/ Calcium Gluconate 5 meq/ Multivitamins 10 ml/Chromium/ Copper/Manganese/ Seleni/Zn 1 ml/ Total Parenteral Nutrition/Amino Acids/ Dextrose/ Fat Emulsion Intravenous 1,512 ml @ 63 mls/hr TPN CONT IV Last administered on 12/20/17at 20:58; Start 12/20/17 at 22:00; Stop 12/21/17 at 21:59 ; Status DC Albumin Human 1,200 ml @ 0 mls/hr 1X ONCE IV Last administered on 12/21/17at 10:40; Start 12/21/17 at 08:45; Stop 12/21/17 at 08:46; Status DC Heparin Sodium (Porcine) (Heparin Sodium) 10,000 unit STK-MED ONCE .ROUTE ; Start 12/21/17 at 08:50; Stop 12/21/17 at 08:51; Status DC Diphenhydramine HCl (Benadryl) 50 mg STK-MED ONCE .ROUTE ; Start 12/21/17 at 11: 46; Stop 12/21/17 at 11:47; Status DC Diphenhydramine HCl (Benadryl) 50 mg 1X ONCE IVP Last administered on at 11:59; Start 12/21/17 at 12:00; Stop 12/21/17 at 12:01; Status DC Sodium Chloride 90 meq/Potassium Chloride 50 meq/ Potassium Phosphate 13.6 mmol/ Magnesium Sulfate 5 meq/ Calcium Gluconate 5 meq/ Multivitamins 10 ml/Chromium/ Copper/Manganese/ Seleni/Zn 1 ml/ Total Parenteral Nutrition/Amino Acids/ Dextrose/ Fat Emulsion Intravenous 1,512 ml @ 63 mls/hr TPN CONT IV Last administered on 12/21/17at 22:00; Start 12/21/17 at 22:00; Stop 12/22/17 at 21:59 ; Status DC Sodium Chloride 90 meq/Potassium Chloride 50 meq/ Potassium Phosphate 13.6 mmol/ Magnesium Sulfate 5 meq/ Calcium Gluconate 5 meq/ Multivitamins 10 ml/Chromium/ Copper/Manganese/ Seleni/Zn 1 ml/ Total Parenteral Nutrition/Amino Acids/ Dextrose/ Fat Emulsion Intravenous 1,512 ml @ 63 mls/hr TPN CONT IV Last administered on 12/22/17at 21:26; Start 12/22/17 at 22:00; Stop 12/23/17 at 21:59 ; Status DC Famotidine (Pepcid Vial) 20 mg QHS IVP Last administered on 01/02/18at 20:40; Start 12/23/17 at 21:00 Sodium Chloride 90 meq/Potassium Chloride 50 meq/ Potassium Phosphate 13.6 mmol/ Magnesium Sulfate 5 meq/ Calcium Gluconate 5 meq/ Multivitamins 10 ml/Chromium/ Copper/Manganese/ Seleni/Zn 1 ml/ Total Parenteral Nutrition/Amino Acids/ Dextrose/ Fat Emulsion Intravenous 1,512 ml @ 63 mls/hr TPN CONT IV Last administered on 12/23/17at 21:10; Start 12/23/17 at 22:00; Stop 12/24/17 at 21:59 ; Status DC Diphenhydramine HCl (Benadryl) 50 mg 1X ONCE IVP Last administered on at 17:33; Start 12/23/17 at 12:00; Stop 12/23/17 at 12:23; Status DC Albumin Human 1,500 ml @ 125 mls/hr 1X ONCE IV Last administered on at 17:34; Start 12/23/17 at 12:30; Stop 12/24/17 at 00:29; Status DC Heparin Sodium (Porcine) (Heparin Sodium) 10,000 unit STK-MED ONCE .ROUTE ; Start 12/23/17 at 14:57; Stop 12/23/17 at 14:58; Status DC Oxycodone/ Acetaminophen (Percocet 5/325) 1 tab PRN Q6HRS PRN PO PAIN; Start 12/23/17 at 20:45; Status Cancel Sodium Chloride 90 meq/Potassium Chloride 50 meq/ Potassium Phosphate 13.6 mmol/ Magnesium Sulfate 5 meq/ Calcium Gluconate 5 meq/ Multivitamins 10 ml/Chromium/ Copper/Manganese/ Seleni/Zn 1 ml/ Total Parenteral Nutrition/Amino Acids/ Dextrose/ Fat Emulsion Intravenous 1,512 ml @ 63 mls/hr TPN CONT IV Last administered on 12/24/17at 21:11; Start 12/24/17 at 22:00; Stop 12/25/17 at 21:59 ; Status DC Calcium Gluconate 2000 mg/Dextrose 120 ml @ 220 mls/hr 1X ONCE IV Last administered on 12/25/17at 09:51; Start 12/25/17 at 10:00; Stop 12/25/17 at 10:32 ; Status DC Diphenhydramine HCl (Benadryl) 50 mg 1X ONCE IVP Last administered on at 14:16; Start 12/25/17 at 09:30; Stop 12/25/17 at 09:31; Status DC Heparin Sodium (Porcine) (Heparin Sodium) 3,000 unit 1X ONCE IV Last administered on 12/25/17at 09:15; Start 12/25/17 at 09:15; Stop 12/25/17 at 09:16 ; Status DC Albumin Human 1,500 ml @ 0 mls/hr 1X ONCE IV Last administered on 12/25/17at 14:19; Start 12/25/17 at 10:45; Stop 12/25/17 at 10:46; Status DC Albumin Human 200 ml @ 0 mls/hr 1X ONCE IV ; Start 12/25/17 at 10:45; Stop 12/25/17 at 10:46; Status DC Heparin Sodium (Porcine) (Heparin Sodium) 10,000 unit STK-MED ONCE .ROUTE ; Start 12/25/17 at 12:39; Stop 12/25/17 at 12:40; Status DC Insulin Human Lispro (HumaLOG) 0-5 UNITS TIDWMEALS SQ Last administered on 12/29at 10:30; Start 12/25/17 at 17:00; Stop 12/29/17 at 11:33; Status DC Dextrose (Dextrose 50%-Water Syringe) 12.5 gm PRN Q15MIN PRN IV SEE COMMENTS; Start 12/25/17 at 13:30 Sodium Chloride 90 meq/Potassium Chloride 50 meq/ Potassium Phosphate 13.6 mmol/ Magnesium Sulfate 5 meq/ Calcium Gluconate 5 meq/ Multivitamins 10 ml/Chromium/ Copper/Manganese/ Seleni/Zn 1 ml/ Total Parenteral Nutrition/Amino Acids/ Dextrose/ Fat Emulsion Intravenous 1,512 ml @ 63 mls/hr TPN CONT IV Last administered on 12/25/17at 21:42; Start 12/25/17 at 22:00; Stop 12/26/17 at 21:59 ; Status DC Barium Sulfate (Varibar Thin Liquid Apple) 148 gm 1X ONCE PO Last administered on 12/26/17at 13:57; Start 12/26/17 at 12:00; Stop 12/26/17 at 12:01 ; Status DC Sodium Chloride 90 meq/Potassium Chloride 50 meq/ Potassium Phosphate 13.6 mmol/ Magnesium Sulfate 5 meq/ Calcium Gluconate 5 meq/ Multivitamins 10 ml/Chromium/ Copper/Manganese/ Seleni/Zn 1 ml/ Total Parenteral Nutrition/Amino Acids/ Dextrose/ Fat Emulsion Intravenous 1,512 ml @ 63 mls/hr TPN CONT IV Last administered on 12/26/17at 21:37; Start 12/26/17 at 22:00; Stop 12/27/17 at 21:59 ; Status DC Vitamin A/Vitamin D (Vitamin A & D Ointment) 1 lila PRN Q1HR PRN TP SKIN PROTECTION Last administered on 12/26/17at 17:42; Start 12/26/17 at 14:15 Pyridostigmine [place] (Regonol) 2.5 mg Q8H IV Last administered on 12/30/17at 00:18; Start 12/26/17 at 17:00; Stop 12/30/17 at 08:53; Status DC Calcium Gluconate 2000 mg/Dextrose 120 ml @ 220 mls/hr 1X ONCE IV ; Start 12/27/17 at 12:30; Stop 12/27/17 at 13:02; Status DC Sodium Chloride 90 meq/Potassium Chloride 50 meq/ Potassium Phosphate 13.6 mmol/ Magnesium Sulfate 5 meq/ Calcium Gluconate 5 meq/ Multivitamins 10 ml/Chromium/ Copper/Manganese/ Seleni/Zn 1 ml/ Total Parenteral Nutrition/Amino Acids/ Dextrose/ Fat Emulsion Intravenous 1,512 ml @ 63 mls/hr TPN CONT IV Last administered on 12/27/17at 23:26; Start 12/27/17 at 22:00; Stop 12/28/17 at 21:59 ; Status DC Albumin Human 1,500 ml @ 0 mls/hr 1X ONCE IV ; Start 12/27/17 at 15:00; Stop 12/27/17 at 15:01; Status DC Sodium Chloride 1,000 ml @ 1,000 mls/hr Q1H ONCE IV ; Start 12/27/17 at 14:30; Stop 12/27/17 at 15:29; Status DC Diphenhydramine HCl (Benadryl) 50 mg 1X ONCE IVP Last administered on at 16:43; Start 12/27/17 at 14:30; Stop 12/27/17 at 14:34; Status DC Heparin Sodium (Porcine) (Heparin Sodium) 10,000 unit STK-MED ONCE .ROUTE ; Start 12/27/17 at 14:42; Stop 12/27/17 at 14:43; Status DC Sodium Chloride 90 meq/Potassium Chloride 50 meq/ Potassium Phosphate 13.6 mmol/ Magnesium Sulfate 5 meq/ Calcium Gluconate 5 meq/ Multivitamins 10 ml/Chromium/ Copper/Manganese/ Seleni/Zn 1 ml/ Total Parenteral Nutrition/Amino Acids/ Dextrose/ Fat Emulsion Intravenous 1,512 ml @ 63 mls/hr TPN CONT IV Last administered on 12/28/17at 22:03; Start 12/28/17 at 22:00; Stop 12/29/17 at 21:59 ; Status DC Mirtazapine (Remeron) 15 mg QHS PO Last administered on 01/02/18at 20:41; Start 12/29/17 at 21:00 Albumin Human 1,000 ml @ 0 mls/hr 1X ONCE IV ; Start 12/29/17 at 11:15; Stop 12/29/17 at 11:16; Status DC Calcium Gluconate (Calcium Gluconate) 1,000 mg 1X ONCE IV ; Start 12/29/17 at 11:15; Stop 12/29/17 at 11:16; Status DC Diphenhydramine HCl (Benadryl) 25 mg 1X ONCE IV ; Start 12/29/17 at 11:15; Stop 12/29/17 at 11:16; Status DC Insulin Human Lispro (HumaLOG) 0-5 UNITS Q6HRS SQ Last administered on at 06:24; Start 12/29/17 at 18:00 Sodium Chloride 90 meq/Potassium Chloride 50 meq/ Potassium Phosphate 13.6 mmol/ Magnesium Sulfate 5 meq/ Calcium Gluconate 5 meq/ Multivitamins 10 ml/Chromium/ Copper/Manganese/ Seleni/Zn 1 ml/ Total Parenteral Nutrition/Amino Acids/ Dextrose/ Fat Emulsion Intravenous 1,512 ml @ 63 mls/hr TPN CONT IV Last administered on 12/29/17at 21:58; Start 12/29/17 at 22:00; Stop 12/30/17 at 21:59 ; Status DC Diphenhydramine HCl (Benadryl) 25 mg PRN Q6HRS PRN IVP ITCHING Last administered on 12/30/17at 16:34; Start 12/29/17 at 21:30 Pyridostigmine [place] (Regonol) 2.5 mg Q6H IV Last administered on 01/02/18at 14:41; Start 12/30/17 at 13:00; Stop 01/02/18 at 15:24; Status DC Sodium Chloride 90 meq/Potassium Chloride 50 meq/ Potassium Phosphate 13.6 mmol/ Magnesium Sulfate 5 meq/ Calcium Gluconate 5 meq/ Multivitamins 10 ml/Chromium/ Copper/Manganese/ Seleni/Zn 1 ml/ Total Parenteral Nutrition/Amino Acids/ Dextrose/ Fat Emulsion Intravenous 1,512 ml @ 63 mls/hr TPN CONT IV Last administered on 12/30/17at 21:37; Start 12/30/17 at 22:00; Stop 12/31/17 at 21:59 ; Status DC Diphenhydramine HCl (Benadryl) 50 mg 1X ONCE IVP Last administered on at 15:03; Start 12/31/17 at 10:30; Stop 12/31/17 at 10:31; Status DC Calcium Gluconate (Calcium Gluconate) 2,000 mg 1X ONCE IVP ; Start 12/31/17 at 10:30; Stop 12/31/17 at 10:31; Status UNV Calcium Gluconate 2000 mg/Dextrose 120 ml @ 240 mls/hr 1X ONCE IV Last administered on 12/31/17at 11:18; Start 12/31/17 at 11:00; Stop 12/31/17 at 11:29 ; Status DC Albumin Human 1,500 ml @ 375 mls/hr 1X ONCE IV Last administered on at 15:03; Start 12/31/17 at 11:45; Stop 12/31/17 at 15:44; Status DC Albumin Human 100 ml @ 25 mls/hr 1X ONCE IV Last administered on 12/31/17at 15 :02; Start 12/31/17 at 12:00; Stop 12/31/17 at 15:59; Status DC Ondansetron HCl (Zofran) 4 mg PRN Q6HRS PRN IV NAUSEA/VOMITING; Start at 07:00; Stop 01/01/18 at 12:00; Status DC Fentanyl Citrate (Fentanyl 2ml Vial) 25 mcg PRN Q5MIN PRN IV MILD PAIN; Start 01/01/18 at 07:00; Stop 01/01/18 at 12:00; Status DC Fentanyl Citrate (Fentanyl 2ml Vial) 50 mcg PRN Q5MIN PRN IV MODERATE TO SEVERE PAIN; Start 01/01/18 at 07:00; Stop 01/01/18 at 12:00; Status DC Morphine Sulfate (Morphine Sulfate) 1 mg PRN Q10MIN PRN IV SEVERE PAIN; Start 01/01/18 at 07:00; Stop 01/01/18 at 12:00; Status DC Ringer's Solution 1,000 ml @ 30 mls/hr Q24H IV Last administered on at 08:17; Start 01/01/18 at 07:00; Stop 01/01/18 at 18:59; Status DC Lidocaine HCl (Xylocaine-Mpf 1% 2ml Vial) 2 ml PRN 1X PRN ID IV START; Start 01/01/18 at 07:00; Stop 01/01/18 at 12:00; Status DC Hydromorphone HCl (Dilaudid) 0.5 mg PRN Q10MIN PRN IV SEV PAIN, Second choice; Start 01/01/18 at 07:00; Stop 01/01/18 at 12:00; Status DC Prochlorperazine Edisylate (Compazine) 5 mg PACU PRN PRN IV NAUSEA, MRX1; Start 01/01/18 at 07:00; Stop 01/01/18 at 12:00; Status DC Heparin Sodium (Porcine) (Heparin Sodium) 10,000 unit [id number] ONCE .ROUTE ; Start 12/31/17 at 13:58; Stop 12/31/17 at 13:59; Status DC Sodium Chloride 90 meq/Potassium Chloride 35 meq/ Potassium Phosphate 13.6 mmol/ Magnesium Sulfate 5 meq/ Calcium Gluconate 10 meq/ Multivitamins 10 ml/Chromium / Copper/Manganese/ Seleni/Zn 1 ml/ Total Parenteral Nutrition/Amino Acids/ Dextrose/ Fat Emulsion Intravenous 1,512 ml @ 63 mls/hr TPN CONT IV Last administered on 12/31/17at 21:58; Start 12/31/17 at 22:00; Stop 01/01/18 at 21: 59; Status DC Cefazolin Sodium 50 ml @ 100 mls/hr 1X PREOP PRN IV PER PROTOCOL Last administered on 01/01/18at 08:41; Start 01/01/18 at 11:00; Stop 01/01/18 at 12 :00; Status DC Midazolam HCl (Versed) 2 mg PRN 1X PRN IV PRIOR TO PROCEDURE; Start 01/01/18 at 08:15; Stop 01/01/18 at 12:00; Status DC Fentanyl Citrate (Fentanyl 2ml Vial) 25 mcg PRN Q5MIN PRN IV X 2 DOSES FOR PAIN ; Start 01/01/18 at 08:15; Stop 01/01/18 at 18:00; Status Cancel Fentanyl Citrate (Fentanyl 2ml Vial) 50 mcg PRN Q5MIN PRN IV X 2 DOSES FOR PAIN ; Start 01/01/18 at 08:15; Stop 01/01/18 at 18:00; Status Cancel Ringer's Solution 1,000 ml @ 125 mls/hr Q8H IV ; Start 01/01/18 at 08:02; Stop 01/01/18 at 12:00; Status DC Lidocaine HCl (Xylocaine-Mpf 1% 2ml Vial) 2 ml 1X PRN PRN ID IV START; Start 01/01/18 at 08:15; Stop 01/01/18 at 18:00; Status Cancel Cefazolin Sodium 50 ml @ As Directed STK-MED ONCE IV ; Start 01/01/18 at 08:19 ; Stop 01/01/18 at 08:20; Status DC Sodium Chloride 90 meq/Potassium Chloride 35 meq/ Potassium Phosphate 13.6 mmol/ Magnesium Sulfate 5 meq/ Calcium Gluconate 10 meq/ Multivitamins 10 ml/Chromium / Copper/Manganese/ Seleni/Zn 1 ml/ Total Parenteral Nutrition/Amino Acids/ Dextrose/ Fat Emulsion Intravenous 1,512 ml @ 63 mls/hr TPN CONT IV ; Start 01/01/18 at 22:00; Stop 01/02/18 at 21:59; Status DC Calcium Chloride 1000 mg/Sodium Chloride 60 ml @ 120 mls/hr 1X ONCE IV Last administered on 01/02/18at 14:43; Start 01/02/18 at 12:45; Stop 01/02/18 at 13 :14; Status DC Diphenhydramine HCl (Benadryl) 50 mg 1X ONCE IVP ; Start 01/02/18 at 15:30; Stop 01/02/18 at 15:31; Status DC Acetaminophen (Tylenol) 650 mg 1X ONCE PO ; Start 01/02/18 at 15:00; Stop 02/09 at 15:01; Status DC Pyridostigmine [place] (Mestinon) 60 mg Q6HRS PEG Last administered on at 06:17; Start 01/02/18 at 16:00 Prednisone (Prednisone) 60 mg DAILY PEG Last administered on 01/03/18at 09:53; Start 01/02/18 at 16:00 Ergocalciferol (Vitamin D2) 50,000 unit QMTH PO Last administered on at 15:45; Start 01/02/18 at 16:00 Calcium Carbonate/ Glycine (Oscal) 500 mg TID PO Last administered on at 09:53; Start 01/02/18 at 16:00 Tramadol HCl (Ultram) 50 mg PRN Q6HRS PRN PEG PAIN; Start 01/02/18 at 15:30 Iohexol (Omnipaque 240 Mg/ml) 30 ml 1X ONCE PO ; Start 01/03/18 at 10:45; Stop 01/03/18 at 10:46; Status DC Iohexol (Omnipaque 300 Mg/ml) 75 ml 1X ONCE IV ; Start 01/03/18 at 10:45; Stop 01/03/18 at 10:46; Status DC Acetaminophen/ Hydrocodone Bitart (Lortab 5/325) 1 tab PRN Q6HRS PRN PO PAIN MODERATE; Start 01/03/18 at 11:00 Alprazolam (Xanax) 0.25 mg PRN Q12HR PRN PO ANXIETY / AGITATION; Start at 11:00 Active Scripts Active Reported Amoxicillin 875 Mg Tablet 1 Tab PO BID Levothyroxine Sodium 25 Mcg Tablet 1 Tab PO DAILY Proair Hfa Inhaler (Albuterol Sulfate) 8.5 Gm Hfa.aer.ad 1 Puff INH PRN Q6HRS PRN [kaitlib fe] Hydrocodone-Apap 7.5-325/15 Soln (Hydrocodone Bit/Acetaminophen) 15 Ml Solution 15 Ml PO PRN Q4HRS PRN Prednisone 50 Mg Tablet 1 Tab PO DAILY Fluticasone Propionate Nasal [place] (Fluticasone Propionate) 16 Gm [place].susp 1 [place] NS DAILY [zoloft] [ativan] Vitals/I & O Vital Sign - Last 24 Hours 01/02/18 01/02/18 01/02/18 01/02/18 12:35 14:52 15:00 18:25 Temp 98.2 98.2 Pulse 75 Resp 20 B/P (MAP) 117/63 (81) Pulse Ox 98 94 O2 Delivery Room Air Room Air Room Air Room Air O2 Flow Rate 2.0 01/02/18 01/02/18 01/02/18 01/02/18 19:00 20:00 20:35 23:00 Temp 97.8 97.6 97.8 97.6 Pulse 93 86 Resp 17 17 B/P (MAP) 139/88 (105) 121/82 (95) Pulse Ox 97 96 O2 Delivery Room Air Room Air Room Air Room Air O2 Flow Rate 2.0 01/03/18 01/03/18 01/03/18 01/03/18 00:44 01:18 02:47 03:00 Temp 97.6 97.6 Pulse 70 Resp 17 B/P (MAP) 130/72 (91) Pulse Ox 98 O2 Delivery Room Air Room Air Room Air Room Air 01/03/18 01/03/18 01/03/18 06:12 07:00 09:51 Temp 97.7 97.7 Pulse 66 Resp 18 17 B/P (MAP) 121/75 (90) Pulse Ox 97 O2 Delivery Room Air Room Air Room Air Intake and Output 01/02/18 01/02/18 01/03/18 15:00 23:00 07:00 Intake Total 15 ml 340 ml 225 ml Output Total 0 ml Balance 15 ml 340 ml 225 ml GAURAV BARONE MD Jan 03, 2018 11:02
--- NOTE | 2018-01-03 11:42 | PDOC ---
Renal-Progress Notes Subjective Notes Notes BETTER History of Present Illness Hx of present illness STABLE Vitals Vitals Vital Signs Date Time Temp Pulse Resp B/P (MAP) Pulse Ox O2 Delivery O2 Flow Rate FiO2 01/03/18 10:21 18 Room Air 01/03/18 07:00 97.7 66 121/75 (90) 97 97.7 01/02/18 20:00 2.0 Weight Weight [ ] I.O. Intake and Output Intake and Output 01/03/18 07:00 Intake Total 580 ml Output Total 0 ml Balance 580 ml Intake Oral 0 ml Tube Feeding 580 ml Gastric Drainage Total 0 ml # Voids 6 Labs Labs Laboratory Tests Test 01/02/18 11:58 01/02/18 13:00 01/02/18 17:12 01/03/18 00:19 Glucose (Fingerstick) 185 mg/dL (70-99) 188 mg/dL (70-99) 204 mg/dL (70-99) White Blood Count 18.8 x10^3/uL (4.0-11.0) Red Blood Count 4.36 x10^6/uL (3.50-5.40) Hemoglobin 12.4 g/dL (12.0-15.5) Hematocrit 36.6 % (36.0-47.0) Mean Corpuscular Volume 84 fL (79-100) Mean Corpuscular Hemoglobin 28 pg (25-35) Mean Corpuscular Hemoglobin Concent 34 g/dL (31-37) Red Cell Distribution Width 12.5 % (11.5-14.5) Platelet Count 145 x10^3/uL (140-400) Prothrombin Time 13.2 SEC (11.7-14.0) Prothromb Time International Ratio 1.1 (0.8-1.1) Activated Partial Thromboplast Time 25 SEC (24-38) Fibrinogen 202 mg/dL (200-440) Test 01/03/18 06:19 01/03/18 06:40 Glucose (Fingerstick) 178 mg/dL (70-99) Sodium Level 140 mmol/L (136-145) Potassium Level 4.2 mmol/L (3.5-5.1) Chloride Level 100 mmol/L (98-107) Carbon Dioxide Level 35 mmol/L (21-32) Anion Gap 5 (6-14) Blood Urea Nitrogen 21 mg/dL (7-20) Creatinine 0.5 mg/dL (0.6-1.0) Estimated GFR (Cockcroft-Gault) 152.9 BUN/Creatinine Ratio 42 (6-20) Glucose Level 180 mg/dL (70-99) Calcium Level 8.7 mg/dL (8.5-10.1) Total Bilirubin 0.3 mg/dL (0.2-1.0) Aspartate Amino Transf (AST/SGOT) 22 U/L (15-37) Alanine Aminotransferase (ALT/SGPT) 107 U/L (14-59) Alkaline Phosphatase 44 U/L (46-116) Total Protein 5.1 g/dL (6.4-8.2) Albumin 3.2 g/dL (3.4-5.0) Albumin/Globulin Ratio 1.7 (1.0-1.7) Review of Systems Constitutional: yes: weakness, alert, oriented Ears/Nose/Throat: Yes: no symptom reported Eyes: Yes: no symptom reported Pulmonary: Yes no symptom reported Cardiovascular: Yes no symptom reported Genitourinary: Yes: no symptom reported Musculoskeletal: Yes: muscle stiffness, other (GENERALIZED WEAKNESS) Psychiatric/Neurological: Yes: tingling, weakness Endocrine: Yes: no symptom reported Hematologic/Lymphatic: Yes: no symptom reported Physical Exam General Appearance: no apparent distress Skin: warm Respiratory: bilateral CTA Heart: S1S2, RRR Abdomen: soft, bowel sounds present Genitourinary: bladder flat Extremities: pulses present, no edema, atrophy Neurology: alert, oriented, follow commands, Ext weakness Assessment Assessment IMP M GRAVIS DIPLOPIA-BETTER DYSPHAGIA S/P PEG-ON TF PLAN NO FURTHER TPE FOR NOW D/C PLANS NOTED WILL HAVE TEMP HD CATHETER REMOVED WILL SIGN OFF RICHARDSON FORD MD Jan 03, 2018 11:42
--- NOTE | 2018-01-03 13:00 | RAD ---
CT of the abdomen and pelvis with contrast, 01/03/2018: HISTORY: Abdominal pain after PEG tube placement Multidetector CT imaging was performed following oral and IV administration of contrast. A gastrostomy tube is in place extending into the body of the stomach. There is mild streaky increased density in the subcutaneous fat and intra-abdominal fat along the course of the catheter compatible with minimal inflammation related to recent placement. No discrete fluid collection is seen to suggest abscess or significant hematoma. There is minimal atelectasis posteriorly in the lung bases. No hepatic abnormality is evident. The gallbladder is unremarkable. No pancreatic abnormality is seen. The spleen is of normal size. No renal or adrenal abnormality is detected. No abdominal or pelvic adenopathy is seen. The uterus and ovaries are unremarkable. The bowel loops are not distended. The cecum is low-lying in the pelvis. A portion of the appendix is visualized and it is unremarkable. No free fluid or free air is evident in the abdomen or pelvis. IMPRESSION: 1. The gastrostomy tube is in satisfactory position within the stomach. 2. No acute abdominal or pelvic abnormality is detected. PQRS Compliance Statement: One or more of the following individualized dose reduction techniques were utilized for this examination: 1. Automated exposure control 2. Adjustment of the mA and/or kV according to patient size 3. Use of iterative reconstruction technique Electronically signed by: Prince Warner MD (01/03/2018 12:56 PM) [facility]
[2018-01-03 15:00] VITALS: BP 139/79
[2018-01-03] MEDS: ALPRAZolam 0.25 MG TABLET PO PRN (17:25)
[2018-01-03] MEDS: HYDROcodone/APAP 5/325MG 1 TAB TABLET PO PRN (17:25)
[2018-01-03 19:00] VITALS: BP 120/67
[2018-01-03] MEDS: FAMOTIDINE 20 MG/2 ML VIAL IVP SCH (21:39)
[2018-01-03] MEDS: traMADol 50 MG TABLET PEG PRN (21:39)
[2018-01-03] MEDS: MIRTAZAPINE 15 MG TABLET PO SCH (21:40)
[2018-01-03] MEDS: POLYETHYLENE GLYCOL 3350 17 GM PACKET. FT SCH (21:40)
[2018-01-03 23:00] VITALS: BP 151/85
[2018-01-04] MEDS: PYRIDOSTIGMINE BROMIDE 60 MG TABLET PEG SCH ×3 (00:14→11:18)
[2018-01-04 03:00] VITALS: BP 128/87
[2018-01-04] MEDS: traMADol 50 MG TABLET PEG PRN (03:46)
[2018-01-04] MEDS: HYDROcodone/APAP 5/325MG 1 TAB TABLET PO PRN (06:40)
[2018-01-04] MEDS: ALPRAZolam 0.25 MG TABLET PO PRN (06:41)
[2018-01-04 07:00] VITALS: BP 130/76
[2018-01-04 07:27] LABS: ALBUMIN 3.1 g/dL (3.4-5.0); ALBUMIN/GLOBULIN RATIO 1.2 (1.0-1.7); CALCIUM 8.9 mg/dL (8.5-10.1); CREATININE 0.5 mg/dL (0.6-1.0); GFR 152.9; POTASSIUM 3.6 mmol/L (3.5-5.1); TOTAL BILIRUBIN 0.5 mg/dL (0.2-1.0); TOTAL PROTEIN 5.6 g/dL (6.4-8.2)
[2018-01-04] MEDS: CALCIUM CARBONATE 500 MG TABLET PO SCH ×2 (08:35→13:49)
[2018-01-04] MEDS: predniSONE 20 MG TABLET PEG SCH (08:35)
[2018-01-04] MEDS: POLYETHYLENE GLYCOL 3350 17 GM PACKET. FT SCH (08:35)
[2018-01-04] MEDS: FLUTICASONE 50MCG/NASAL SPRAY 16GM BOTTLE. NS SCH (08:36)
[2018-01-04] MEDS: LEVOTHYROXINE SODIUM IVP SCH (09:00)
[2018-01-04] MEDS: NORMAL SALINE IVP SCH (09:00)
[2018-01-04 11:00] VITALS: BP 114/67
[2018-01-04] MEDS ORDERED: ALPRAZolam 0.25 MG TABLET PO PRN (11:15)
--- NOTE | 2018-01-04 11:46 | PDOC ---
PROGRESS NOTES Chief Complaint Chief Complaint Myasthenia gravis Constipation Diplopia Dysphagia Eze's thyroiditis Easy bruising Myasthenia gravis w/ dysphagia s/p PEG 12/31/17 Abdominal pain, obstipation History of Present Illness History of Present Illness pt seen and examine. Pt is tolerating bolus feeding and had had a bowel movement. She will be discharged today Pts mother present Pt alert and oriented; affect appropriate DW RN, nurse report pt has increasing anxiety, change Xanax dosing to .25mg q4hrs VSS Vitals Vitals Vital Signs Date Time Temp Pulse Resp B/P (MAP) Pulse Ox O2 Delivery O2 Flow Rate FiO2 01/04/18 11:00 98.2 116 18 114/67 (83) 98 Room Air 98.2 Physical Exam General: Oriented X3, Cooperative, No acute distress Heart: Regular rate, Normal S1, Normal S2 Lungs: Clear Abdomen: No tenderness, No hepatosplenomegaly, No masses Extremities: No clubbing, No cyanosis Skin: No breakdown, No significant lesion, Other (Lipoma at the nape. ) Labs LABS Laboratory Tests Test 01/03/18 11:47 01/04/18 07:00 Glucose (Fingerstick) 175 mg/dL (70-99) Sodium Level 141 mmol/L (136-145) Potassium Level 3.6 mmol/L (3.5-5.1) Chloride Level 100 mmol/L (98-107) Carbon Dioxide Level 37 mmol/L (21-32) Anion Gap 4 (6-14) Blood Urea Nitrogen 15 mg/dL (7-20) Creatinine 0.5 mg/dL (0.6-1.0) Estimated GFR (Cockcroft-Gault) 152.9 BUN/Creatinine Ratio 30 (6-20) Glucose Level 64 mg/dL (70-99) Calcium Level 8.9 mg/dL (8.5-10.1) Total Bilirubin 0.5 mg/dL (0.2-1.0) Aspartate Amino Transf (AST/SGOT) 27 U/L (15-37) Alanine Aminotransferase (ALT/SGPT) 82 U/L (14-59) Alkaline Phosphatase 44 U/L (46-116) Total Protein 5.6 g/dL (6.4-8.2) Albumin 3.1 g/dL (3.4-5.0) Albumin/Globulin Ratio 1.2 (1.0-1.7) Review of Systems Review of Systems CO Hunger CO fatigue Assessment and Plan Assessmemt and Plan Problems Medical Problems: (1) Diplopia Status: Acute (2) Marijuana abuse Status: Acute (3) Myasthenia gravis with acute exacerbation Status: Acute (4) Neck muscle weakness Status: Acute (5) RUE weakness Status: Acute (6) Sinusitis Status: Acute Myasthenia gravis Constipation Diplopia Dysphagia Eze's thyroiditis Easy bruising Myasthenia gravis w/ dysphagia s/p PEG 12/31/17 Abdominal pain, obstipation Plan: Discharge today Home meds Labs Xanax .25mg q4hrs PT/OT Comment Review of Relevant I have reviewed the following items maliha (where applicable) has been applied. Labs Laboratory Tests Test 01/02/18 11:58 01/02/18 13:00 01/02/18 17:12 01/03/18 00:19 Glucose (Fingerstick) 185 mg/dL (70-99) 188 mg/dL (70-99) 204 mg/dL (70-99) White Blood Count 18.8 x10^3/uL (4.0-11.0) Red Blood Count 4.36 x10^6/uL (3.50-5.40) Hemoglobin 12.4 g/dL (12.0-15.5) Hematocrit 36.6 % (36.0-47.0) Mean Corpuscular Volume 84 fL (79-100) Mean Corpuscular Hemoglobin 28 pg (25-35) Mean Corpuscular Hemoglobin Concent 34 g/dL (31-37) Red Cell Distribution Width 12.5 % (11.5-14.5) Platelet Count 145 x10^3/uL (140-400) Prothrombin Time 13.2 SEC (11.7-14.0) Prothromb Time International Ratio 1.1 (0.8-1.1) Activated Partial Thromboplast Time 25 SEC (24-38) Fibrinogen 202 mg/dL (200-440) Test 01/03/18 06:19 01/03/18 06:40 01/03/18 11:47 01/04/18 07:00 Glucose (Fingerstick) 178 mg/dL (70-99) 175 mg/dL (70-99) Sodium Level 140 mmol/L (136-145) 141 mmol/L (136-145) Potassium Level 4.2 mmol/L (3.5-5.1) 3.6 mmol/L (3.5-5.1) Chloride Level 100 mmol/L (98-107) 100 mmol/L (98-107) Carbon Dioxide Level 35 mmol/L (21-32) 37 mmol/L (21-32) Anion Gap 5 (6-14) 4 (6-14) Blood Urea Nitrogen 21 mg/dL (7-20) 15 mg/dL (7-20) Creatinine 0.5 mg/dL (0.6-1.0) 0.5 mg/dL (0.6-1.0) Estimated GFR (Cockcroft-Gault) 152.9 152.9 BUN/Creatinine Ratio 42 (6-20) 30 (6-20) Glucose Level 180 mg/dL (70-99) 64 mg/dL (70-99) Calcium Level 8.7 mg/dL (8.5-10.1) 8.9 mg/dL (8.5-10.1) Total Bilirubin 0.3 mg/dL (0.2-1.0) 0.5 mg/dL (0.2-1.0) Aspartate Amino Transf (AST/SGOT) 22 U/L (15-37) 27 U/L (15-37) Alanine Aminotransferase (ALT/SGPT) 107 U/L (14-59) 82 U/L (14-59) Alkaline Phosphatase 44 U/L (46-116) 44 U/L (46-116) Total Protein 5.1 g/dL (6.4-8.2) 5.6 g/dL (6.4-8.2) Albumin 3.2 g/dL (3.4-5.0) 3.1 g/dL (3.4-5.0) Albumin/Globulin Ratio 1.7 (1.0-1.7) 1.2 (1.0-1.7) Laboratory Tests Test 01/03/18 11:47 01/04/18 07:00 Glucose (Fingerstick) 175 mg/dL (70-99) Sodium Level 141 mmol/L (136-145) Potassium Level 3.6 mmol/L (3.5-5.1) Chloride Level 100 mmol/L (98-107) Carbon Dioxide Level 37 mmol/L (21-32) Anion Gap 4 (6-14) Blood Urea Nitrogen 15 mg/dL (7-20) Creatinine 0.5 mg/dL (0.6-1.0) Estimated GFR (Cockcroft-Gault) 152.9 BUN/Creatinine Ratio 30 (6-20) Glucose Level 64 mg/dL (70-99) Calcium Level 8.9 mg/dL (8.5-10.1) Total Bilirubin 0.5 mg/dL (0.2-1.0) Aspartate Amino Transf (AST/SGOT) 27 U/L (15-37) Alanine Aminotransferase (ALT/SGPT) 82 U/L (14-59) Alkaline Phosphatase 44 U/L (46-116) Total Protein 5.6 g/dL (6.4-8.2) Albumin 3.1 g/dL (3.4-5.0) Albumin/Globulin Ratio 1.2 (1.0-1.7) Medications Current Medications Meclizine HCl (Antivert) 25 mg 1X ONCE PO Last administered on 12/17/17at 20:00 ; Start 12/17/17 at 20:00; Stop 12/17/17 at 20:01; Status DC Sodium Chloride 1,000 ml @ 1,000 mls/hr 1X ONCE IV Last administered on at 20:35; Start 12/17/17 at 20:15; Stop 12/17/17 at 21:14; Status DC Ketorolac Tromethamine (Toradol 15mg Vial) 15 mg 1X ONCE IV Last administered on 12/17/17at 20:36; Start 12/17/17 at 20:15; Stop 12/17/17 at 20:16; Status DC Diphenhydramine HCl (Benadryl) 25 mg 1X ONCE PO Last administered on at 02:16; Start 12/18/17 at 02:15; Stop 12/18/17 at 02:18; Status DC Acetaminophen (Tylenol) 500 mg PRN Q6HRS PRN PO MILD PAIN / TEMP; Start at 09:00 Acetaminophen/ Codeine Phosphate (Tylenol #3) 1 tab PRN Q6HRS PRN PO PAIN; Start 12/18/17 at 09:00; Stop 12/18/17 at 12:08; Status DC Ibuprofen (Motrin) 600 mg PRN Q6HRS PRN PO INFLAMMATION; Start 12/18/17 at 09: 00; Stop 12/19/17 at 16:23; Status DC Ondansetron HCl (Zofran) 4 mg PRN Q6HRS PRN IV NAUSEA/VOMITING Last administered on 01/02/18at 08:30; Start 12/18/17 at 09:00 Ondansetron HCl (Zofran Odt) 4 mg PRN Q6HRS PRN PO NAUSEA/VOMITING; Start 12/18 at 09:00; Stop 12/18/17 at 12:08; Status DC Fluticasone Propionate (Flonase) 1 spray DAILY NS Last administered on at 08:36; Start 12/18/17 at 09:00 Acetaminophen/ Hydrocodone Bitart (Lortab 7.5-325/ 15ml Oral Solution) 15 ml PRN Q4HRS PRN PO MODERATE PAIN; Start 12/18/17 at 09:00; Stop 12/19/17 at 16:23 ; Status DC Non-Formulary Medication (Albuterol Sulfate (Proair Hfa Inhaler)) 1 puff PRN Q6HRS PRN INH SHORTNESS OF BREATH; Start 12/18/17 at 09:00; Status UNV Amoxicillin (Amoxil) 750 mg BID PO Last administered on 12/18/17at 21:02; Start 12/18/17 at 10:00; Stop 12/19/17 at 16:23; Status DC Levothyroxine Sodium (Synthroid) 25 mcg DAILY07 PO ; Start 12/18/17 at 10:30; Stop 12/18/17 at 12:08; Status DC Prednisone (Prednisone) 50 mg DAILY PO ; Start 12/18/17 at 10:00; Stop 12/18/17 at 12:08; Status DC Alprazolam (Xanax) 0.25 mg PRN Q8HRS PRN PO ANXIETY / AGITATION; Start at 09:00; Stop 12/19/17 at 08:14; Status DC Zolpidem Tartrate (Ambien) 5 mg PRN QHS PRN PO INSOMNIA; Start 12/18/17 at 09: 00; Stop 12/18/17 at 12:08; Status DC Cetirizine HCl (ZyrTEC) 10 mg DAILY PO ; Start 12/18/17 at 10:00; Stop 12/18/17 at 12:08; Status DC Non-Formulary Medication 1 ea 1X ONCE IV ; Start 12/18/17 at 09:00; Stop at 09:01; Status UNV Potassium Chloride/Dextrose/ Sod Cl 1,000 ml @ 80 mls/hr [id number] IV Last administered on 12/19/17at 10:00; Start 12/18/17 at 09:00; Stop 12/20/17 at 09:07 ; Status DC Albuterol Sulfate (Ventolin Neb Soln) 2.5 mg PRN Q6HRS PRN NEB SHORTNESS OF BREATH Last administered on 12/27/17at 19:26; Start 12/18/17 at 09:30 Iohexol (Omnipaque 300 Mg/ml) 75 ml 1X ONCE IV Last administered on 12/18/17at 10:31; Start 12/18/17 at 10:15; Stop 12/18/17 at 10:16; Status DC Info (CONTRAST GIVEN -- Rx MONITORING) 1 each PRN DAILY PRN MC SEE COMMENTS; Start 12/18/17 at 10:15; Stop 12/20/17 at 10:14; Status DC Levothyroxine Sodium 15 mcg/ Sodium Chloride 5 ml @ 100 mls/hr DAILY IVP Last administered on 12/20/17at 09:41; Start 12/18/17 at 12:30; Stop 12/20/17 at 11:44 ; Status DC Lorazepam (Ativan) 1 mg PRN Q4HRS PRN IV ANXIETY / AGITATION Last administered on 01/03/18at 19:46; Start 12/18/17 at 13:15 Alprazolam (Xanax) 0.25 mg PRN Q8HRS PRN NG ANXIETY / AGITATION Last administered on 12/19/17at 01:13; Start 12/18/17 at 13:15; Stop 12/19/17 at 16:23 ; Status DC Pyridostigmine [place] (Mestinon) 60 mg BID NG Last administered on 12/18/17at 21:01; Start 12/18/17 at 13:00; Stop 12/19/17 at 16:23; Status DC Prednisone (Prednisone) 50 mg DAILY PO Last administered on 12/18/17at 16:03; Start 12/18/17 at 13:00; Stop 12/19/17 at 16:23; Status DC Famotidine (Pepcid) 20 mg QHS PO Last administered on 12/18/17at 21:01; Start at 21:00; Stop 12/19/17 at 16:23; Status DC Calcium Carbonate/ Glycine (Oscal) 500 mg TIDAFTMEAL PO ; Start 12/18/17 at 18: 00; Stop 12/19/17 at 16:23; Status DC Ergocalciferol (Vitamin D2) 50,000 unit MoTh PO ; Start 12/19/17 at 09:00; Stop 12/19/17 at 16:23; Status DC Lidocaine/Sodium Bicarbonate (Buffered Lidocaine 1%) 3 ml STK-MED ONCE .ROUTE ; Start 12/18/17 at 14:32; Stop 12/18/17 at 14:33; Status DC Heparin Sodium (Porcine) (Heparin Sodium) 10,000 unit STK-MED ONCE .ROUTE ; Start 12/18/17 at 14:32; Stop 12/18/17 at 14:33; Status DC Lidocaine/Sodium Bicarbonate (Buffered Lidocaine 1%) 3 ml 1X ONCE INJ Last administered on 12/18/17at 15:15; Start 12/18/17 at 15:15; Stop 12/18/17 at 15:16 ; Status DC Heparin Sodium (Porcine) (Heparin Sodium) 2,200 unit 1X ONCE INT CAT Last administered on 12/18/17at 15:15; Start 12/18/17 at 15:15; Stop 12/18/17 at 15:16 ; Status DC Scopolamine (Transderm-Scop) 1 patch 1X ONCE TD Last administered on at 21:41; Start 12/18/17 at 21:30; Stop 12/19/17 at 16:23; Status DC Albumin Human 1,500 ml @ 0 mls/hr 1X ONCE IV Last administered on 12/19/17at 11:38; Start 12/19/17 at 08:15; Stop 12/19/17 at 08:16; Status DC Heparin Sodium (Porcine) (Heparin Sodium) 10,000 unit STK-MED ONCE .ROUTE ; Start 12/19/17 at 08:40; Stop 12/19/17 at 08:41; Status DC Info (Tpn Per Pharmacy) 1 each PRN DAILY PRN MC SEE COMMENTS Last administered on 01/01/18at 11:31; Start 12/20/17 at 16:30; Stop 01/02/18 at 22:00; Status DC Pyridostigmine [place] (Regonol) 2.5 mg Q12HR IV Last administered on at 09:56; Start 12/19/17 at 21:00; Stop 12/26/17 at 15:52; Status DC Methylprednisolone Sodium Succinate (SOLU-Medrol 40MG VIAL) 40 mg Q12HR IV Last administered on 01/02/18at 08:31; Start 12/19/17 at 21:00; Stop 01/02/18 at 15:24; Status DC Famotidine (Pepcid Vial) 20 mg QHS IVP Last administered on 12/19/17at 21:33; Start 12/19/17 at 21:00; Stop 12/20/17 at 11:44; Status DC Morphine Sulfate (Morphine Sulfate) 2 mg PRN Q2HR PRN IV MODERATE TO SEVERE PAIN Last administered on 01/03/18at 19:47; Start 12/19/17 at 23:15 Amino Acids/ Glycerin/ Electrolytes 1,000 ml @ 80 mls/hr [id number] IV Last administered on 12/20/17at 09:57; Start 12/20/17 at 09:30; Stop 12/20/17 at 11:44 ; Status DC Alteplase, Recombinant (Cathflo) 2 mg 1X ONCE IV Last administered on at 12:37; Start 12/20/17 at 11:45; Stop 12/20/17 at 11:46; Status DC Cyclobenzaprine HCl (Flexeril) 5 mg QID PO Last administered on 12/21/17at 09:10 ; Start 12/20/17 at 17:00; Stop 12/29/17 at 11:33; Status DC Cyclobenzaprine HCl (Flexeril) 10 mg 1X ONCE PO ; Start 12/20/17 at 11:45; Stop 12/20/17 at 11:53; Status DC Levothyroxine Sodium (Synthroid) 25 mcg DAILY07 PO ; Start 12/21/17 at 07:00; Stop 12/21/17 at 07:00; Status DC Levothyroxine Sodium 12.5 mcg/ Sodium Chloride 5 ml @ 100 mls/hr DAILY IVP Last administered on 01/04/18at 09:00; Start 12/21/17 at 09:00 Sodium Chloride 90 meq/Potassium Chloride 50 meq/ Potassium Phosphate 13.6 mmol/ Magnesium Sulfate 5 meq/ Calcium Gluconate 5 meq/ Multivitamins 10 ml/Chromium/ Copper/Manganese/ Seleni/Zn 1 ml/ Total Parenteral Nutrition/Amino Acids/ Dextrose/ Fat Emulsion Intravenous 1,512 ml @ 63 mls/hr TPN CONT IV Last administered on 12/20/17at 20:58; Start 12/20/17 at 22:00; Stop 12/21/17 at 21:59 ; Status DC Albumin Human 1,200 ml @ 0 mls/hr 1X ONCE IV Last administered on 12/21/17at 10:40; Start 12/21/17 at 08:45; Stop 12/21/17 at 08:46; Status DC Heparin Sodium (Porcine) (Heparin Sodium) 10,000 unit STK-MED ONCE .ROUTE ; Start 12/21/17 at 08:50; Stop 12/21/17 at 08:51; Status DC Diphenhydramine HCl (Benadryl) 50 mg STK-MED ONCE .ROUTE ; Start 12/21/17 at 11: 46; Stop 12/21/17 at 11:47; Status DC Diphenhydramine HCl (Benadryl) 50 mg 1X ONCE IVP Last administered on at 11:59; Start 12/21/17 at 12:00; Stop 12/21/17 at 12:01; Status DC Sodium Chloride 90 meq/Potassium Chloride 50 meq/ Potassium Phosphate 13.6 mmol/ Magnesium Sulfate 5 meq/ Calcium Gluconate 5 meq/ Multivitamins 10 ml/Chromium/ Copper/Manganese/ Seleni/Zn 1 ml/ Total Parenteral Nutrition/Amino Acids/ Dextrose/ Fat Emulsion Intravenous 1,512 ml @ 63 mls/hr TPN CONT IV Last administered on 12/21/17at 22:00; Start 12/21/17 at 22:00; Stop 12/22/17 at 21:59 ; Status DC Sodium Chloride 90 meq/Potassium Chloride 50 meq/ Potassium Phosphate 13.6 mmol/ Magnesium Sulfate 5 meq/ Calcium Gluconate 5 meq/ Multivitamins 10 ml/Chromium/ Copper/Manganese/ Seleni/Zn 1 ml/ Total Parenteral Nutrition/Amino Acids/ Dextrose/ Fat Emulsion Intravenous 1,512 ml @ 63 mls/hr TPN CONT IV Last administered on 12/22/17at 21:26; Start 12/22/17 at 22:00; Stop 12/23/17 at 21:59 ; Status DC Famotidine (Pepcid Vial) 20 mg QHS IVP Last administered on 01/03/18at 21:39; Start 12/23/17 at 21:00 Sodium Chloride 90 meq/Potassium Chloride 50 meq/ Potassium Phosphate 13.6 mmol/ Magnesium Sulfate 5 meq/ Calcium Gluconate 5 meq/ Multivitamins 10 ml/Chromium/ Copper/Manganese/ Seleni/Zn 1 ml/ Total Parenteral Nutrition/Amino Acids/ Dextrose/ Fat Emulsion Intravenous 1,512 ml @ 63 mls/hr TPN CONT IV Last administered on 12/23/17at 21:10; Start 12/23/17 at 22:00; Stop 12/24/17 at 21:59 ; Status DC Diphenhydramine HCl (Benadryl) 50 mg 1X ONCE IVP Last administered on at 17:33; Start 12/23/17 at 12:00; Stop 12/23/17 at 12:23; Status DC Albumin Human 1,500 ml @ 125 mls/hr 1X ONCE IV Last administered on at 17:34; Start 12/23/17 at 12:30; Stop 12/24/17 at 00:29; Status DC Heparin Sodium (Porcine) (Heparin Sodium) 10,000 unit STK-MED ONCE .ROUTE ; Start 12/23/17 at 14:57; Stop 12/23/17 at 14:58; Status DC Oxycodone/ Acetaminophen (Percocet 5/325) 1 tab PRN Q6HRS PRN PO PAIN; Start 12/23/17 at 20:45; Status Cancel Sodium Chloride 90 meq/Potassium Chloride 50 meq/ Potassium Phosphate 13.6 mmol/ Magnesium Sulfate 5 meq/ Calcium Gluconate 5 meq/ Multivitamins 10 ml/Chromium/ Copper/Manganese/ Seleni/Zn 1 ml/ Total Parenteral Nutrition/Amino Acids/ Dextrose/ Fat Emulsion Intravenous 1,512 ml @ 63 mls/hr TPN CONT IV Last administered on 12/24/17at 21:11; Start 12/24/17 at 22:00; Stop 12/25/17 at 21:59 ; Status DC Calcium Gluconate 2000 mg/Dextrose 120 ml @ 220 mls/hr 1X ONCE IV Last administered on 12/25/17at 09:51; Start 12/25/17 at 10:00; Stop 12/25/17 at 10:32 ; Status DC Diphenhydramine HCl (Benadryl) 50 mg 1X ONCE IVP Last administered on at 14:16; Start 12/25/17 at 09:30; Stop 12/25/17 at 09:31; Status DC Heparin Sodium (Porcine) (Heparin Sodium) 3,000 unit 1X ONCE IV Last administered on 12/25/17at 09:15; Start 12/25/17 at 09:15; Stop 12/25/17 at 09:16 ; Status DC Albumin Human 1,500 ml @ 0 mls/hr 1X ONCE IV Last administered on 12/25/17at 14:19; Start 12/25/17 at 10:45; Stop 12/25/17 at 10:46; Status DC Albumin Human 200 ml @ 0 mls/hr 1X ONCE IV ; Start 12/25/17 at 10:45; Stop 12/25/17 at 10:46; Status DC Heparin Sodium (Porcine) (Heparin Sodium) 10,000 unit STK-MED ONCE .ROUTE ; Start 12/25/17 at 12:39; Stop 12/25/17 at 12:40; Status DC Insulin Human Lispro (HumaLOG) 0-5 UNITS TIDWMEALS SQ Last administered on 12/29at 10:30; Start 12/25/17 at 17:00; Stop 12/29/17 at 11:33; Status DC Dextrose (Dextrose 50%-Water Syringe) 12.5 gm PRN Q15MIN PRN IV SEE COMMENTS; Start 12/25/17 at 13:30 Sodium Chloride 90 meq/Potassium Chloride 50 meq/ Potassium Phosphate 13.6 mmol/ Magnesium Sulfate 5 meq/ Calcium Gluconate 5 meq/ Multivitamins 10 ml/Chromium/ Copper/Manganese/ Seleni/Zn 1 ml/ Total Parenteral Nutrition/Amino Acids/ Dextrose/ Fat Emulsion Intravenous 1,512 ml @ 63 mls/hr TPN CONT IV Last administered on 12/25/17at 21:42; Start 12/25/17 at 22:00; Stop 12/26/17 at 21:59 ; Status DC Barium Sulfate (Varibar Thin Liquid Apple) 148 gm 1X ONCE PO Last administered on 12/26/17at 13:57; Start 12/26/17 at 12:00; Stop 12/26/17 at 12:01 ; Status DC Sodium Chloride 90 meq/Potassium Chloride 50 meq/ Potassium Phosphate 13.6 mmol/ Magnesium Sulfate 5 meq/ Calcium Gluconate 5 meq/ Multivitamins 10 ml/Chromium/ Copper/Manganese/ Seleni/Zn 1 ml/ Total Parenteral Nutrition/Amino Acids/ Dextrose/ Fat Emulsion Intravenous 1,512 ml @ 63 mls/hr TPN CONT IV Last administered on 12/26/17at 21:37; Start 12/26/17 at 22:00; Stop 12/27/17 at 21:59 ; Status DC Vitamin A/Vitamin D (Vitamin A & D Ointment) 1 lila PRN Q1HR PRN TP SKIN PROTECTION Last administered on 12/26/17at 17:42; Start 12/26/17 at 14:15 Pyridostigmine [place] (Regonol) 2.5 mg Q8H IV Last administered on 12/30/17at 00:18; Start 12/26/17 at 17:00; Stop 12/30/17 at 08:53; Status DC Calcium Gluconate 2000 mg/Dextrose 120 ml @ 220 mls/hr 1X ONCE IV ; Start 12/27/17 at 12:30; Stop 12/27/17 at 13:02; Status DC Sodium Chloride 90 meq/Potassium Chloride 50 meq/ Potassium Phosphate 13.6 mmol/ Magnesium Sulfate 5 meq/ Calcium Gluconate 5 meq/ Multivitamins 10 ml/Chromium/ Copper/Manganese/ Seleni/Zn 1 ml/ Total Parenteral Nutrition/Amino Acids/ Dextrose/ Fat Emulsion Intravenous 1,512 ml @ 63 mls/hr TPN CONT IV Last administered on 12/27/17at 23:26; Start 12/27/17 at 22:00; Stop 12/28/17 at 21:59 ; Status DC Albumin Human 1,500 ml @ 0 mls/hr 1X ONCE IV ; Start 12/27/17 at 15:00; Stop 12/27/17 at 15:01; Status DC Sodium Chloride 1,000 ml @ 1,000 mls/hr Q1H ONCE IV ; Start 12/27/17 at 14:30; Stop 12/27/17 at 15:29; Status DC Diphenhydramine HCl (Benadryl) 50 mg 1X ONCE IVP Last administered on at 16:43; Start 12/27/17 at 14:30; Stop 12/27/17 at 14:34; Status DC Heparin Sodium (Porcine) (Heparin Sodium) 10,000 unit STK-MED ONCE .ROUTE ; Start 12/27/17 at 14:42; Stop 12/27/17 at 14:43; Status DC Sodium Chloride 90 meq/Potassium Chloride 50 meq/ Potassium Phosphate 13.6 mmol/ Magnesium Sulfate 5 meq/ Calcium Gluconate 5 meq/ Multivitamins 10 ml/Chromium/ Copper/Manganese/ Seleni/Zn 1 ml/ Total Parenteral Nutrition/Amino Acids/ Dextrose/ Fat Emulsion Intravenous 1,512 ml @ 63 mls/hr TPN CONT IV Last administered on 12/28/17at 22:03; Start 12/28/17 at 22:00; Stop 12/29/17 at 21:59 ; Status DC Mirtazapine (Remeron) 15 mg QHS PO Last administered on 01/03/18at 21:40; Start 12/29/17 at 21:00 Albumin Human 1,000 ml @ 0 mls/hr 1X ONCE IV ; Start 12/29/17 at 11:15; Stop 12/29/17 at 11:16; Status DC Calcium Gluconate (Calcium Gluconate) 1,000 mg 1X ONCE IV ; Start 12/29/17 at 11:15; Stop 12/29/17 at 11:16; Status DC Diphenhydramine HCl (Benadryl) 25 mg 1X ONCE IV ; Start 12/29/17 at 11:15; Stop 12/29/17 at 11:16; Status DC Insulin Human Lispro (HumaLOG) 0-5 UNITS Q6HRS SQ Last administered on at 06:24; Start 12/29/17 at 18:00; Stop 01/03/18 at 14:44; Status DC Sodium Chloride 90 meq/Potassium Chloride 50 meq/ Potassium Phosphate 13.6 mmol/ Magnesium Sulfate 5 meq/ Calcium Gluconate 5 meq/ Multivitamins 10 ml/Chromium/ Copper/Manganese/ Seleni/Zn 1 ml/ Total Parenteral Nutrition/Amino Acids/ Dextrose/ Fat Emulsion Intravenous 1,512 ml @ 63 mls/hr TPN CONT IV Last administered on 12/29/17at 21:58; Start 12/29/17 at 22:00; Stop 12/30/17 at 21:59 ; Status DC Diphenhydramine HCl (Benadryl) 25 mg PRN Q6HRS PRN IVP ITCHING Last administered on 12/30/17at 16:34; Start 12/29/17 at 21:30 Pyridostigmine [place] (Regonol) 2.5 mg Q6H IV Last administered on 01/02/18at 14:41; Start 12/30/17 at 13:00; Stop 01/02/18 at 15:24; Status DC Sodium Chloride 90 meq/Potassium Chloride 50 meq/ Potassium Phosphate 13.6 mmol/ Magnesium Sulfate 5 meq/ Calcium Gluconate 5 meq/ Multivitamins 10 ml/Chromium/ Copper/Manganese/ Seleni/Zn 1 ml/ Total Parenteral Nutrition/Amino Acids/ Dextrose/ Fat Emulsion Intravenous 1,512 ml @ 63 mls/hr TPN CONT IV Last administered on 12/30/17at 21:37; Start 12/30/17 at 22:00; Stop 12/31/17 at 21:59 ; Status DC Diphenhydramine HCl (Benadryl) 50 mg 1X ONCE IVP Last administered on at 15:03; Start 12/31/17 at 10:30; Stop 12/31/17 at 10:31; Status DC Calcium Gluconate (Calcium Gluconate) 2,000 mg 1X ONCE IVP ; Start 12/31/17 at 10:30; Stop 12/31/17 at 10:31; Status UNV Calcium Gluconate 2000 mg/Dextrose 120 ml @ 240 mls/hr 1X ONCE IV Last administered on 12/31/17at 11:18; Start 12/31/17 at 11:00; Stop 12/31/17 at 11:29 ; Status DC Albumin Human 1,500 ml @ 375 mls/hr 1X ONCE IV Last administered on at 15:03; Start 12/31/17 at 11:45; Stop 12/31/17 at 15:44; Status DC Albumin Human 100 ml @ 25 mls/hr 1X ONCE IV Last administered on 12/31/17at 15 :02; Start 12/31/17 at 12:00; Stop 12/31/17 at 15:59; Status DC Ondansetron HCl (Zofran) 4 mg PRN Q6HRS PRN IV NAUSEA/VOMITING; Start at 07:00; Stop 01/01/18 at 12:00; Status DC Fentanyl Citrate (Fentanyl 2ml Vial) 25 mcg PRN Q5MIN PRN IV MILD PAIN; Start 01/01/18 at 07:00; Stop 01/01/18 at 12:00; Status DC Fentanyl Citrate (Fentanyl 2ml Vial) 50 mcg PRN Q5MIN PRN IV MODERATE TO SEVERE PAIN; Start 01/01/18 at 07:00; Stop 01/01/18 at 12:00; Status DC Morphine Sulfate (Morphine Sulfate) 1 mg PRN Q10MIN PRN IV SEVERE PAIN; Start 01/01/18 at 07:00; Stop 01/01/18 at 12:00; Status DC Ringer's Solution 1,000 ml @ 30 mls/hr Q24H IV Last administered on at 08:17; Start 01/01/18 at 07:00; Stop 01/01/18 at 18:59; Status DC Lidocaine HCl (Xylocaine-Mpf 1% 2ml Vial) 2 ml PRN 1X PRN ID IV START; Start 01/01/18 at 07:00; Stop 01/01/18 at 12:00; Status DC Hydromorphone HCl (Dilaudid) 0.5 mg PRN Q10MIN PRN IV SEV PAIN, Second choice; Start 01/01/18 at 07:00; Stop 01/01/18 at 12:00; Status DC Prochlorperazine Edisylate (Compazine) 5 mg PACU PRN PRN IV NAUSEA, MRX1; Start 01/01/18 at 07:00; Stop 01/01/18 at 12:00; Status DC Heparin Sodium (Porcine) (Heparin Sodium) 10,000 unit STK-MED ONCE .ROUTE ; Start 12/31/17 at 13:58; Stop 12/31/17 at 13:59; Status DC Sodium Chloride 90 meq/Potassium Chloride 35 meq/ Potassium Phosphate 13.6 mmol/ Magnesium Sulfate 5 meq/ Calcium Gluconate 10 meq/ Multivitamins 10 ml/Chromium / Copper/Manganese/ Seleni/Zn 1 ml/ Total Parenteral Nutrition/Amino Acids/ Dextrose/ Fat Emulsion Intravenous 1,512 ml @ 63 mls/hr TPN CONT IV Last administered on 12/31/17at 21:58; Start 12/31/17 at 22:00; Stop 01/01/18 at 21: 59; Status DC Cefazolin Sodium 50 ml @ 100 mls/hr 1X PREOP PRN IV PER PROTOCOL Last administered on 01/01/18at 08:41; Start 01/01/18 at 11:00; Stop 01/01/18 at 12 :00; Status DC Midazolam HCl (Versed) 2 mg PRN 1X PRN IV PRIOR TO PROCEDURE; Start 01/01/18 at 08:15; Stop 01/01/18 at 12:00; Status DC Fentanyl Citrate (Fentanyl 2ml Vial) 25 mcg PRN Q5MIN PRN IV X 2 DOSES FOR PAIN ; Start 01/01/18 at 08:15; Stop 01/01/18 at 18:00; Status Cancel Fentanyl Citrate (Fentanyl 2ml Vial) 50 mcg PRN Q5MIN PRN IV X 2 DOSES FOR PAIN ; Start 01/01/18 at 08:15; Stop 01/01/18 at 18:00; Status Cancel Ringer's Solution 1,000 ml @ 125 mls/hr Q8H IV ; Start 01/01/18 at 08:02; Stop 01/01/18 at 12:00; Status DC Lidocaine HCl (Xylocaine-Mpf 1% 2ml Vial) 2 ml 1X PRN PRN ID IV START; Start 01/01/18 at 08:15; Stop 01/01/18 at 18:00; Status Cancel Cefazolin Sodium 50 ml @ As Directed STK-MED ONCE IV ; Start 01/01/18 at 08:19 ; Stop 01/01/18 at 08:20; Status DC Sodium Chloride 90 meq/Potassium Chloride 35 meq/ Potassium Phosphate 13.6 mmol/ Magnesium Sulfate 5 meq/ Calcium Gluconate 10 meq/ Multivitamins 10 ml/Chromium / Copper/Manganese/ Seleni/Zn 1 ml/ Total Parenteral Nutrition/Amino Acids/ Dextrose/ Fat Emulsion Intravenous 1,512 ml @ 63 mls/hr TPN CONT IV ; Start 01/01/18 at 22:00; Stop 01/02/18 at 21:59; Status DC Calcium Chloride 1000 mg/Sodium Chloride 60 ml @ 120 mls/hr 1X ONCE IV Last administered on 01/02/18at 14:43; Start 01/02/18 at 12:45; Stop 01/02/18 at 13 :14; Status DC Diphenhydramine HCl (Benadryl) 50 mg 1X ONCE IVP ; Start 01/02/18 at 15:30; Stop 01/02/18 at 15:31; Status DC Acetaminophen (Tylenol) 650 mg 1X ONCE PO ; Start 01/02/18 at 15:00; Stop 02/09 at 15:01; Status DC Pyridostigmine [place] (Mestinon) 60 mg Q6HRS PEG Last administered on at 11:18; Start 01/02/18 at 16:00 Prednisone (Prednisone) 60 mg DAILY PEG Last administered on 01/04/18at 08:35; Start 01/02/18 at 16:00 Ergocalciferol (Vitamin D2) 50,000 unit QMTH PO Last administered on at 15:45; Start 01/02/18 at 16:00 Calcium Carbonate/ Glycine (Oscal) 500 mg TID PO Last administered on at 08:35; Start 01/02/18 at 16:00 Tramadol HCl (Ultram) 50 mg PRN Q6HRS PRN PEG PAIN Last administered on at 03:46; Start 01/02/18 at 15:30 Iohexol (Omnipaque 240 Mg/ml) 30 ml 1X ONCE PO Last administered on at 11:23; Start 01/03/18 at 10:45; Stop 01/03/18 at 10:46; Status DC Iohexol (Omnipaque 300 Mg/ml) 75 ml 1X ONCE IV Last administered on at 11:00; Start 01/03/18 at 10:45; Stop 01/03/18 at 10:46; Status DC Acetaminophen/ Hydrocodone Bitart (Lortab 5/325) 1 tab PRN Q6HRS PRN PO PAIN MODERATE Last administered on 01/04/18at 06:40; Start 01/03/18 at 11:00 Alprazolam (Xanax) 0.25 mg PRN Q12HR PRN PO ANXIETY / AGITATION Last administered on 01/04/18at 06:41; Start 01/03/18 at 11:00; Stop 01/04/18 at 11 :05; Status DC Polyethylene Glycol (miraLAX PACKET) 17 gm BID FT Last administered on at 08:35; Start 01/03/18 at 21:00 Alprazolam (Xanax) 0.25 mg PRN Q4HRS PRN PO ANXIETY / AGITATION Last administered on 01/04/18at 11:18; Start 01/04/18 at 11:15 Active Scripts Active Reported Amoxicillin 875 Mg Tablet 1 Tab PO BID Levothyroxine Sodium 25 Mcg Tablet 1 Tab PO DAILY Proair Hfa Inhaler (Albuterol Sulfate) 8.5 Gm Hfa.aer.ad 1 Puff INH PRN Q6HRS PRN [kaitlib fe] Hydrocodone-Apap 7.5-325/15 Soln (Hydrocodone Bit/Acetaminophen) 15 Ml Solution 15 Ml PO PRN Q4HRS PRN Prednisone 50 Mg Tablet 1 Tab PO DAILY Fluticasone Propionate Nasal [place] (Fluticasone Propionate) 16 Gm Simpson.susp 1 [place] NS DAILY [zoloft] [ativan] Vitals/I & O Vital Sign - Last 24 Hours 01/03/18 01/03/18 01/03/18 01/03/18 15:00 17:25 19:00 19:47 Temp 97.9 98.3 97.9 98.3 Pulse 104 89 Resp 18 18 18 B/P (MAP) 139/79 (99) 120/67 (84) Pulse Ox 94 96 O2 Delivery Room Air Room Air Room Air Room Air 01/03/18 01/03/18 01/03/18 01/03/18 20:00 21:30 21:39 22:45 Resp 14 14 14 O2 Delivery Room Air Room Air Room Air 01/03/18 01/04/18 01/04/18 01/04/18 23:00 03:00 04:48 06:40 Temp 97.6 98.2 97.6 98.2 Pulse 111 98 Resp 18 18 15 B/P (MAP) 151/85 (107) 128/87 (101) Pulse Ox 95 94 O2 Delivery Room Air Room Air Room Air Room Air 01/04/18 01/04/18 01/04/18 07:00 07:40 11:00 Temp 97.8 98.2 97.8 98.2 Pulse 88 116 Resp 18 16 18 B/P (MAP) 130/76 (94) 114/67 (83) Pulse Ox 97 98 O2 Delivery Room Air Room Air Room Air Intake and Output 01/03/18 01/03/18 01/04/18 15:00 23:00 07:00 Intake Total 225 ml 230 ml 0 ml Balance 225 ml 230 ml 0 ml EVELYN ARREGUIN III DO Jan 04, 2018 11:46
== END 2018-01-04 13:52 | disposition home health service (06) | DRG 57 ==
LOC: ER 19:17 → OBSVTOIN 12-18 01:21 → 6 SOUTH 12-18 01:21 → 5 NORTH 01-01 16:00
PROVIDERS: ADMIT Internal Medicine; ATTEND Internal Medicine
PROC: 02HV33Z Insertion of Infusion Device into Superior Vena Cava, Percutaneous Approach (ICD-10-PCS; principal; 2017-12-18)
PROC: B5181ZA Fluoroscopy of Superior Vena Cava using Low Osmolar Contrast, Guidance (ICD-10-PCS; 2017-12-18)
PROC: B548ZZA Ultrasonography of Superior Vena Cava, Guidance (ICD-10-PCS; 2017-12-18)
PROC: 0DH68UZ Insertion of Feeding Device into Stomach, Via Natural or Artificial Opening Endoscopic (ICD-10-PCS; 2017-12-18)
PROC: 30233L1 Transfusion of Nonautologous Fresh Plasma into Peripheral Vein, Percutaneous Approach (ICD-10-PCS; 2017-12-18)
PROC: 30233K1 Transfusion of Nonautologous Frozen Plasma into Peripheral Vein, Percutaneous Approach (ICD-10-PCS; 2017-12-18)
DX: G70.01 Myasthenia gravis with (acute) exacerbation (principal); D17.9 Benign lipomatous neoplasm, unspecified; D72.829 Elevated white blood cell count, unspecified; E05.90 Thyrotoxicosis, unspecified without thyrotoxic crisis or storm; E06.3 Autoimmune thyroiditis; F12.10 Cannabis abuse, uncomplicated; F41.0 Panic disorder [episodic paroxysmal anxiety]; F41.1 Generalized anxiety disorder; H51.0 Palsy (spasm) of conjugate gaze; K29.70 Gastritis, unspecified, without bleeding; K59.03 Drug induced constipation; K75.9 Inflammatory liver disease, unspecified; M43.6 Torticollis; R13.12 Dysphagia, oropharyngeal phase; T40.2X5A Adverse effect of other opioids, initial encounter; J01.00 Acute maxillary sinusitis, unspecified; Y92.89 Other specified places as the place of occurrence of the external cause; Z79.899 Other long term (current) drug therapy
CPT/HCPCS: 36415; 36556; 36569; 43752; 70450; 70551; 71260; 74018; 74177; 74230; 76705; 76937; 77001; 80048; 80053; 80307; 81025; 82040; 82310; 82550; 82607; 82962; 83735; 84100; 84439; 84443; 84478; 84481; 85007; 85025; 85027; 85384; 85610; 85651; 85730; 86706; 86803; 86850; 86900; 86901; 86927; 87340; 93005; 94150; 94640; 94760; 96361; 96374; C1769; C1892; G0238; G0480; J0610; J0690; J1200; J1644; J1815; J1885; J2060; J2270; J2405; J2920; J2997; J3475; J7030; J7120; J7512; J7613; J8597; P9017; P9041; P9045; Q0163; Q9966; Q9967; S0028; 92526; 92610; 92611; 97110; 97116; 97530; 97535; 99285-25; G0479

== ENCOUNTER → 2018-01-30 | Outpatient (CLI) | payer BC, OTHER ==
[2018-01-04 11:00] VITALS: BP 114/67
[~2018-01-30] MED LIST: AMOX875T PO; BARIUM SULFATE 40% (APPLE) 148 GM PWD. PO ONE; FLUT16SP NS; HYDR15SO6 PO; LEVO25TA4 PO; PRED50TA PO; PROAIR HFA8.5 GM INH; [UNRECOGNIZED DRUG - OTHER]; ativan; zoloft
--- NOTE | 2018-01-30 13:41 | RAD ---
Video dysphasia study, 01/30/2018: History: Myasthenia gravis, dysphasia The swallowing mechanism was examined fluoroscopically in the lateral projection with the patient ingested thin and thicker materials mixed makes with barium. 2.2 minutes of fluoroscopy time was utilized. One video fluoroscopic loop was recorded by a member of the speech Department. When ingesting the thin liquids there was poor pharyngeal peristalsis with piriform sinus residue. A portion of the ingested liquid did pass normally through the cervical esophagus. No laryngeal penetration or aspiration was observed. With the pudding consistency material was ingested the residue was more severe. Some of this would clear with a subsequent drinking of thin liquids. Again, no laryngeal penetration or aspiration was observed. Solids were not attempted due to the above findings. IMPRESSION: Weak pharyngeal peristalsis with severe piriform sinus residue when the thicker materials were utilized. No elaine aspiration was observed on this limited exam.
[2018-01-30 14:36] LABS: BASO % 0 % (0-3); EOS % 0 % (0-3); HEMATOCRIT 41.3 % (36.0-47.0); HEMOGLOBIN 13.9 g/dL (12.0-15.5); LYMPH % 7 % (24-48); MEAN CORPUSCULAR HEMOGLOBIN 29 pg (25-35); MEAN CORPUSCULAR HGB CONC 34 g/dL (31-37); MEAN CORPUSCULAR VOLUME 87 fL (79-100); MONO # 0.5 x10^3/uL (0.0-1.1); MONO % 4 % (0-9); NEUT # 11.8 x10^3uL (1.8-7.7); NEUT % 89 % (31-73); PLATELET COUNT 258 x10^3/uL (140-400); RED BLOOD COUNT 4.74 x10^6/uL (3.50-5.40); RED CELL DISTRIBUTION WIDTH 16.1 % (11.5-14.5); WHITE BLOOD COUNT 13.4 x10^3/uL (4.0-11.0)
[2018-01-30 15:35] LABS: % LYMPHS 9 % (24-48); % MONOS 3 % (0-10); % SEGS 88 % (35-66)
[2018-01-30 15:36] LABS: PLT ESTIMATE ADEQUATE (ADEQUATE)
[2018-01-30 15:38] LABS: TOXIC GRANULATION SLIGHT
[2018-01-30 16:42] LABS: ALBUMIN 3.7 g/dL (3.4-5.0); ALBUMIN/GLOBULIN RATIO 1.2 (1.0-1.7); CALCIUM 9.1 mg/dL (8.5-10.1); CREATININE 0.7 mg/dL (0.6-1.0); GFR 103.7; POTASSIUM 3.9 mmol/L (3.5-5.1); TOTAL BILIRUBIN 0.3 mg/dL (0.2-1.0); TOTAL PROTEIN 6.8 g/dL (6.4-8.2)
== END | disposition home or self-care (01) ==
LOC: RAD 14:09
PROVIDERS: ATTEND Psychiatry & Neurology Neurology with Special Qualifications in Child Neurology
DX: R13.13 Dysphagia, pharyngeal phase (principal); K22.4 Dyskinesia of esophagus; G70.01 Myasthenia gravis with (acute) exacerbation
CPT/HCPCS: 36415; 74230; 80053; 85007; 85025; 92526; 92611

== ENCOUNTER → 2018-02-27 | Outpatient (CLI) | payer BC, OTHER ==
[~2018-02-27] MED LIST changes: -BARIUM SULFATE 40% (APPLE) 148 GM PWD. PO ONE
[2018-02-27 16:03] LABS: BASO % 0 % (0-3); EOS % 0 % (0-3); HEMOGLOBIN 14.5 g/dL (12.0-15.5); LYMPH % 7 % (24-48); MEAN CORPUSCULAR HEMOGLOBIN 30 pg (25-35); MEAN CORPUSCULAR HGB CONC 34 g/dL (31-37); MEAN CORPUSCULAR VOLUME 89 fL (79-100); MONO # 0.6 x10^3/uL (0.0-1.1); MONO % 4 % (0-9); NEUT # 12.7 x10^3uL (1.8-7.7); NEUT % 89 % (31-73); PLATELET COUNT 263 x10^3/uL (140-400); RED BLOOD COUNT 4.84 x10^6/uL (3.50-5.40); RED CELL DISTRIBUTION WIDTH 14.7 % (11.5-14.5); WHITE BLOOD COUNT 14.3 x10^3/uL (4.0-11.0)
[2018-02-27 16:14] LABS: ALBUMIN 3.8 g/dL (3.4-5.0); ALBUMIN/GLOBULIN RATIO 1.1 (1.0-1.7); CALCIUM 9.4 mg/dL (8.5-10.1); CREATININE 0.7 mg/dL (0.6-1.0); GFR 103.7; POTASSIUM 4.1 mmol/L (3.5-5.1); TOTAL BILIRUBIN 0.4 mg/dL (0.2-1.0); TOTAL PROTEIN 7.4 g/dL (6.4-8.2)
[2018-02-27 17:16] LABS: % LYMPHS 5 % (24-48); % MONOS 4 % (0-10); % MYELOS 1 % (0-0); % SEGS 90 % (35-66)
[2018-02-27 17:18] LABS: PLT ESTIMATE ADEQUATE (ADEQUATE)
== END | disposition home or self-care (01) ==
LOC: LAB 15:32
PROVIDERS: ATTEND Psychiatry & Neurology Neurology with Special Qualifications in Child Neurology
DX: G70.01 Myasthenia gravis with (acute) exacerbation (principal)
CPT/HCPCS: 36415; 80053; 84443; 85007; 85025

== ENCOUNTER → 2018-03-04 | Outpatient (CLI) | payer BC, OTHER | END | disposition home or self-care (01) | LOC: LAB 12:32 | PROVIDERS: ATTEND Internal Medicine Gastroenterology | DX: R19.7 Diarrhea, unspecified (principal) | CPT/HCPCS: 36415; 87045; 87493 ==